=== PATIENT | female | born 1960 | race Caucasian/White ===

== ENCOUNTER → 2023-04-24 08:43 | Outpatient (REF) | payer OTHER, SELFPAY | LOC: RAD 08:43 | PROVIDERS: ATTENDING PHYSICIAN Internal Medicine | DX: L81.9 Disorder of pigmentation, unspecified (principal); M79.604 Pain in right leg; M79.605 Pain in left leg | CPT/HCPCS: 93925 ==

== ENCOUNTER → 2023-05-18 09:17 | Outpatient (REF) | payer OTHER, SELFPAY | LOC: RAD 09:17 | PROVIDERS: ATTENDING PHYSICIAN Surgery Vascular Surgery; FAMILY PHYSICIAN Internal Medicine | DX: M79.604 Pain in right leg (principal); M79.605 Pain in left leg | CPT/HCPCS: 93922; 93970 ==

== ENCOUNTER → 2023-05-26 16:42 | Outpatient (REF) | payer OTHER, SELFPAY | LOC: RAD 16:42 | PROVIDERS: ATTENDING PHYSICIAN Specialist; FAMILY PHYSICIAN Internal Medicine | DX: N18.32 Chronic kidney disease, stage 3b (principal) | CPT/HCPCS: 76775 ==

== ENCOUNTER → 2023-05-28 07:42 | Outpatient (REF) | payer OTHER, SELFPAY | LOC: RSP 07:42 | PROVIDERS: ATTENDING PHYSICIAN Internal Medicine; FAMILY PHYSICIAN Internal Medicine | DX: R06.09 Other forms of dyspnea (principal); F17.210 Nicotine dependence, cigarettes, uncomplicated | CPT/HCPCS: 94727; 94729; 88738; 94060 ==

== ENCOUNTER 2023-06-15 15:44 | Emergency (ER) | payer OTHER, SELFPAY ==
[2023-06-15 15:49] VITALS: BP 143/75
--- NOTE | 2023-06-15 19:48 | ED.GENMED ---
History of Present Illness
General
Chief Complaint: Head Injury
Source: patient and spouse
Exam Limitations: none
Time Seen by Provider: 06/15/23 18:41
Nursing documentation reviewed up to this point in time: agreed with
Travel History
Have you had any contact with someone who has COVID-19?: No
Do you have any symptoms of coronavirus? Fever > 100 degrees, chills, cough, shortness of breath, sore throat, loss of taste or smell, muscle aches, or headache?: No
History of Present Illness
History of Present Illness:
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
in the area of craniotomy she immediately felt spasm to her tongue and jaw had trouble speaking for roughly 5 minutes this has since resolved and otherwise feels well at this point denies any neurologic symptoms that are ongoing has a mild headache
at this point
Past History
Past History
ED Past Medical History: CVA
Social History
Tobacco: Non-smoker
Personal:
Living: with family
Review of Systems
Review of Systems
Allergies reviewed?: Yes
All Other Systems: ROS reviewed and negative except as documented in HPI and ROS
Phy Exam
Physical Exam
Physical Exam:
GENERAL: Alert , in no apparent distress
EYE: pupils equal and reactive
NECK: Supple, no significant adenopathy.
ENT: o/p clr, mmm.
CARDIAC: Regular rate and rhythm .
LUNGS: Clear breath sounds bilaterally, no acute respiratory distress, no wheezes/rales/rhonchi
ABDOMEN: Soft, without focal tenderness, no r/g, no cvat
NEUROLOGICAL: Alert and oriented, no focal neuro deficits 5-5 upper and lower extremity strength and sensation were palpated bilaterally normal finger-nose and [id number] no pronator drift
SKIN: Warm and dry, skin intact.
MUSCULOSKELETAL: No edema, well perfused.
PSYCH: Normal and appropriate interaction.
Course
Orders/Labs/Results
Orders:
Orders
06/15/23 16:00
CT Head W/o Iv Contrast Stat
Comment:
Reason For Exam: head injury
Vital Signs
Initial and Last Documented VS:
Initial Vital Signs
Temp Pulse Resp BP Pulse Ox
98.2 F 85 18 143/75 97
06/15/23 15:49 06/15/23 15:49 06/15/23 15:49 06/15/23 15:49 06/15/23 15:49
Last Documented Vital Signs
Temp Pulse Resp BP Pulse Ox
98.2 F 85 18 143/75 97
06/15/23 15:49 06/15/23 15:49 06/15/23 15:49 06/15/23 15:49 06/15/23 15:49
MDM/Problems Addressed
MDM/Problems Addressed:
63-year-old female presenting to the emergency department after her dog bumped into her left side of her scalp and area of previous craniotomy for moyamoya. Had initial symptoms where she had difficulty speech for a few minutes as well as spasm to
her jaw and tongue. Here she is generally ill-appearing no neurologic symptoms CT scan without emergent findings. No signs of emergent process advised for close follow-up with her neurosurgeon otherwise stable for outpatient management. Return
precautions given.
*Critical Care Note
Total Time (30-74mins, 75-104mins- exclusive of procedures): Not Applicable
ED Attending Note
-
Portions of this chart may have been created with voice recognition software.� Occasional wrong word or��sound alike� substitutions may have occurred due to the inherent limitations of voice recognition software.
Discharge Plan
Departure
Patient Disposition: Home (Routine Discharge)
Date of Disposition: 06/15/23
Time of Disposition: 19:51
Patient with high blood pressure during this ER visit?: No
Condition: Good
Covid-19: Not Applicable
Discharge Problem:
Head injury
Instructions: Head Injury in Adults (DC)
Prescriptions:
No Action
clopidogrel 75 MG tablet
75 mg PO DAILY
atorvastatin 80 mg Tablet
80 mg PO DAILY
diltiazem HCl [Cardizem CD] 180 mg Capsule,Extended Release 24hr
180 mg PO HS
levothyroxine 100 mcg Tablet
100 mcg PO DAILY
alprazolam 0.25 mg Tablet
0.25 mg PO BID PRN (Reason: anxiety)
valsartan 320 mg Tablet
320 mg PO DAILY
hydrochlorothiazide 25 mg Tablet
25 mg PO DAILY
duloxetine 30 mg Capsule,Delayed Release(Dr/Ec)
30 mg PO HS
cholecalciferol (vitamin D3) [Vitamin D3] 50 mcg (2,000 unit) Tablet
50 mcg PO DAILY
aspirin 81 mg Capsule
81 mg PO DAILY
Referrals:
Heri Huston MD [Family Provider] -
Activity Restrictions/Additional Instructions:
You came to the emergency department today after an injury to the area of previous craniotomy. Here you had a reassuring CT scan. Please follow closely with your neurosurgeon. Return to the emergency department any worsening, new or concerning
symptoms.
== END 2023-06-15 19:58 | disposition home or self-care (01) ==
LOC: EMR 15:44
PROVIDERS: EMERGENCY PHYSICIAN Emergency Medicine; FAMILY PHYSICIAN Internal Medicine
DX: S09.90XA Unspecified injury of head, initial encounter (principal); W54.1XXA Struck by dog, initial encounter; Z86.73 Personal history of transient ischemic attack (TIA), and cerebral infarction without residual deficits
CPT/HCPCS: 99284; 70450

== ENCOUNTER 2023-06-25 08:10 | Outpatient (RCR) | payer OTHER, SELFPAY ==
[2023-06-25 08:27] VITALS: BP 157/67
[2023-06-25] MEDS: SODIUM BICARBONATE 1150 MEQ IV (08:50)
[2023-06-25 14:35] VITALS: BP 156/88
== END 2023-06-26 10:17 | disposition home or self-care (01) ==
LOC: OID 08:10
PROVIDERS: ATTENDING PHYSICIAN Nurse Practitioner Adult Health; FAMILY PHYSICIAN Internal Medicine
DX: I67.5 Moyamoya disease (principal); M79.604 Pain in right leg; M79.605 Pain in left leg; R23.9 Unspecified skin changes; Z92.89 Personal history of other medical treatment
CPT/HCPCS: 75635; 96365; 96366; Q9967

== ENCOUNTER → 2023-06-25 09:08 | Outpatient (REF) | payer OTHER, SELFPAY | LOC: RAD 09:08 | PROVIDERS: ATTENDING PHYSICIAN Surgery Vascular Surgery; FAMILY PHYSICIAN Internal Medicine | DX: M79.604 Pain in right leg (principal) | CPT/HCPCS: 75635; Q9967 ==

== ENCOUNTER → 2023-08-13 09:20 | Outpatient (REF) | payer OTHER, SELFPAY ==
[2023-08-13 09:36] VITALS: BMI 23.2
[2023-08-13 10:22] LABS: INR 0.99; PT 13.1 Sec (11.4-14.6)
[2023-08-13 10:43] LABS: % Basophils 0.6 % (0-2); % Eosinophils 2.9 % (0-6); % Immature Granulocytes 0.9 % (0-0.5); % Lymphocytes 19.7 % (20.5-51.1); % Monocytes 4.9 % (1.7-9.3); Absolute Basophils 0.1 10^3/uL (0-0.2); Absolute Eosinophils 0.4 10^3/uL (0-0.7); Absolute Immature Granulocytes 0.1 10^3/uL (0-0.05); Absolute Lymphocytes 2.5 10^3/uL (1.2-3.4); Absolute Monocytes 0.6 10^3/uL (0.1-0.6); Absolute Neutrophils 9.1 10^3/uL (1.4-6.5); Hematocrit 38.7 % (37.0-47.0); Hemoglobin 12.8 g/dL (12.0-16.0); Mean Corp Hgb Conc. 33.1 g/dL (33.0-37.0); Mean Corpuscular Hgb 30.7 pg (27.0-31.0); Mean Corpuscular Volume 92.8 fL (81.0-99.0); Mean Platelet Volume 9.8 fL (7.4-10.4); Nucleated Red Blood Cells % 0 %; Platelet Count 358 10^3/uL (130-400); Red Blood Cell Count 4.17 10^6/uL (4.20-5.40); Red Cell Dist. Width 13.4 % (11.5-14.5); White Blood Cell Count 12.8 10^3/uL (4.8-10.8)
[2023-08-13 11:08] LABS: Blood Urea Nitrogen 60 mg/dl (7-17); Calcium 9.9 mg/dl (8.4-10.2); Carbon Dioxide 20 mmol/L (22-30); Chloride 102 mmol/L (98-107); Estimated Creatinine Clearance 22 ml/min; Glucose 108 mg/dl (70-99); Sodium 134 mmol/L (135-145); eGFR 20.11
--- NOTE | 2023-08-13 12:51 | PTCARENOTE ---
K+ 6.0, BUN 60 & creatinine 2.6 were all collected on 08/13/23; Belén at 's office was made aware.
== END ==
LOC: REG 09:20
PROVIDERS: ATTENDING PHYSICIAN Surgery Vascular Surgery; FAMILY PHYSICIAN Internal Medicine; OTHER PHYSICIAN Internal Medicine
DX: I77.1 Stricture of artery (principal); M79.605 Pain in left leg; M79.604 Pain in right leg; Z01.818 Encounter for other preprocedural examination
CPT/HCPCS: 36415; 71046; 80048; 85025; 85610; 85730; 86850; 86900; 86901

== ENCOUNTER → 2023-08-17 07:53 | Outpatient (REF) | payer OTHER, SELFPAY ==
[2023-08-17 08:49] LABS: Blood Urea Nitrogen 51 mg/dl (7-17); Calcium 10.3 mg/dl (8.4-10.2); Carbon Dioxide 21 mmol/L (22-30); Chloride 101 mmol/L (98-107); Glucose 148 mg/dl (70-99); Potassium 4.5 mmol/L (3.5-5.1); Sodium 133 mmol/L (135-145); eGFR 20.11
== END ==
LOC: REG 07:53
PROVIDERS: ATTENDING PHYSICIAN Specialist; FAMILY PHYSICIAN Internal Medicine; OTHER PHYSICIAN Surgery Vascular Surgery
DX: N17.9 Acute kidney failure, unspecified (principal); E87.5 Hyperkalemia
CPT/HCPCS: 36415; 80048

== ENCOUNTER → 2023-08-21 07:35 | Outpatient (REF) | payer OTHER, SELFPAY ==
[2023-08-21 08:52] LABS: Blood Urea Nitrogen 22 mg/dl (7-17); Calcium 9.8 mg/dl (8.4-10.2); Carbon Dioxide 24 mmol/L (22-30); Chloride 104 mmol/L (98-107); Glucose 135 mg/dl (70-99); Sodium 135 mmol/L (135-145)
== END ==
LOC: REG 07:35
PROVIDERS: ATTENDING PHYSICIAN Specialist; REFERRING PHYSICIAN Surgery Vascular Surgery
DX: N17.9 Acute kidney failure, unspecified (principal); E87.5 Hyperkalemia
CPT/HCPCS: 36415; 80048

== ENCOUNTER 2023-09-01 08:53 | Inpatient (IN) | payer OTHER, SELFPAY ==
--- NOTE | 2023-08-26 13:45 | PTCARENOTE ---
08/20 Nico 1Mitchel Melissa @ Dr. Fu office notified
[2023-08-27 09:42] VITALS: BMI 23.5
[2023-08-27 10:21] LABS: % Basophils 0.4 % (0-2); % Eosinophils 2.1 % (0-6); % Immature Granulocytes 0.5 % (0-0.5); % Lymphocytes 18.1 % (20.5-51.1); % Monocytes 5.6 % (1.7-9.3); % Neutrophils 73.3 % (42.2-75.2); Absolute Basophils 0.1 10^3/uL (0-0.2); Absolute Eosinophils 0.3 10^3/uL (0-0.7); Absolute Immature Granulocytes 0.1 10^3/uL (0-0.05); Absolute Lymphocytes 2.5 10^3/uL (1.2-3.4); Absolute Monocytes 0.8 10^3/uL (0.1-0.6); Absolute Neutrophils 9.9 10^3/uL (1.4-6.5); Hematocrit 36.7 % (37.0-47.0); Hemoglobin 12.2 g/dL (12.0-16.0); Mean Corp Hgb Conc. 33.2 g/dL (33.0-37.0); Mean Corpuscular Volume 93.1 fL (81.0-99.0); Mean Platelet Volume 9.7 fL (7.4-10.4); Nucleated Red Blood Cells % 0 %; Platelet Count 367 10^3/uL (130-400); Red Blood Cell Count 3.94 10^6/uL (4.20-5.40); Red Cell Dist. Width 12.9 % (11.5-14.5); White Blood Cell Count 13.5 10^3/uL (4.8-10.8)
[2023-08-27 10:23] LABS: INR 1.01; PT 13.3 Sec (11.4-14.6)
[2023-08-27 10:24] LABS: APTT 28.7 Sec (23.4-35.0)
[2023-08-27 10:28] LABS: Blood Urea Nitrogen 15 mg/dl (7-17); Calcium 9.7 mg/dl (8.4-10.2); Carbon Dioxide 28 mmol/L (22-30); Chloride 100 mmol/L (98-107); Estimated Creatinine Clearance 31 ml/min; Glucose 97 mg/dl (70-99); Potassium 3.8 mmol/L (3.5-5.1); Sodium 137 mmol/L (135-145); eGFR 31.27
[2023-09-01] VITALS (21 sets, daily range): BP systolic 125–202; BP diastolic 64–103; BMI 23.5; BMI 23.4
[2023-09-01] MEDS: PERIDEX 0.12% ORAL RINSE 15 ML PO (09:30)
[2023-09-01] MEDS: BACTROBAN NASAL 1 GRAM NASAL (09:30)
[2023-09-01] MEDS: NSS 500 IV (09:42)
--- NOTE | 2023-09-01 10:26 | W.SUR.PREOP ---
Pre-Operative Surgical Note
-
I have examined this patient prior to the performance of the scheduled procedure.
The patient's condition is unchanged from the time of the current History and
Physical and the patient is able to undergo the scheduled procedure.
[2023-09-01 12:28] LABS: ACT-LR - POC 266 Seconds (116-155)
[2023-09-01 13:39] LABS: Hematocrit 32.9 % (37.0-47.0); Hemoglobin 11.3 g/dL (12.0-16.0); Mean Corp Hgb Conc. 34.3 g/dL (33.0-37.0); Mean Corpuscular Volume 90.1 fL (81.0-99.0); Mean Platelet Volume 9.5 fL (7.4-10.4); Platelet Count 328 10^3/uL (130-400); Red Blood Cell Count 3.65 10^6/uL (4.20-5.40); Red Cell Dist. Width 12.9 % (11.5-14.5); White Blood Cell Count 19.4 10^3/uL (4.8-10.8)
[2023-09-01] MEDS: SUBLIMAZE 50 MCG IV (13:43)
[2023-09-01] MEDS: CARDENE 200 IV (13:45)
--- NOTE | 2023-09-01 13:50 | W.IMMPOSTOP ---
Surgical Immed Post Op Note
-
Primary Surgeon: Dr. Tony Portillo III, MD
Assisting Surgeon: Dr. Kiel Moran MD, PhD (PGY-1)
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
Procedure Performed: diagnostic arteriogram, AFX stent graft placement, balloon angioplasty
Anesthesia Type: General
Specimen / Cultures: None
Estimated Blood Loss: Minimal
Complications: None
Operative Findings: The patient was brought to the OR and placed in the supine position. Following induction and intubation, the patient was prepped and draped in usual sterile fashion. The C arm was used to identify the superior and inferior
aspects of the femoral head, these boundaries were marked at the skin. Micropuncture kit was used to access the common femoral arteries bilaterally and a 5-v[place] citizen sheath was advanced over a BuzzDoesson wire on both sides. Two preclose devices were
placed in each groin. The AFX stent graft sheath was advanced over a Lunderquist wire on the right side, while the contralateral side was used to advance the sheath for a snare wire. The AFX graft was position at the level of the iliac bifurcation
from the abdominal aorta. Balloon angioplasty was performed along the entire course of the graft and the graft was extended into the common iliac on the left side. At the conclusion of the case, the sheaths and wires were removed and perclose
devices were used to close the access sites. Hemostasis was achieved and the skin was closed with skin glue. At the conclusion of the case, the patient had dopplerable DP and PT pulses on the left and a dopplerable PT signal on the right. The
patient was transported to the PACU in stable condition.
[2023-09-01 14:00] LABS: Blood Urea Nitrogen 14 mg/dl (7-17); Calcium 8.7 mg/dl (8.4-10.2); Carbon Dioxide 25 mmol/L (22-30); Chloride 102 mmol/L (98-107); Estimated Creatinine Clearance 35 ml/min; Glucose 125 mg/dl (70-99); Potassium 3.7 mmol/L (3.5-5.1); Sodium 137 mmol/L (135-145); eGFR 36.01
--- NOTE | 2023-09-01 14:39 | W.PN.UPDATE ---
Update Note
Progress Note Update
Called to PACU by RN for concern of BL LE cyanosis of digits, patient seen with attending Dr. Tony Portillo, who indicates that BL digits were discolored prior to procedure. Pulse exam unchanged, motor intact, sensation scantly diminished at right
foot hallux. Patient denies pain. Will add heparin infusion and continue to monitor.
[2023-09-01] MEDS: DILAUDID 0.5 MG IV ×3 (15:08→20:05)
--- NOTE | 2023-09-01 15:28 | CON.INTV ---
Consultation
Consultation Request
Date/Time Consultation Requested: 09/01/23
Date/Time Consultation Performed: 09/01/23
Performing Provider: Ana
Reason for Consultation: ICU
Medical History
-
History of Present Illness:
Patient is a 63-year-old female with previous history of hypertension, CAD, PAD, COPD presenting for elective vascular procedure. She had been complaining of worsening leg pain with difficulty ambulating. She has known descending thoracic aortic
disease involving infrarenal abdominal aorta extending into the iliac arteries bilaterally. Underwent diagnostic arteriogram, stent graft placement and balloon angioplasty 09/01/2023. Procedure was notably uncomplicated.
She is transferred to ICU for further postop management.
Past Medical History
Past Medical History: Other (see list below)
Social History
Tobacco: Smoker
Alcohol: Occasional
Drug: None
Family History
Family History: Reviewed & Not Pertinent
Allergies / Home Medications
Allergies
Allergy/AdvReac Type Severity Reaction Status Date / Time
No Known Allergies Allergy Verified 09/01/23 09:06
Home Medications
�Medication �Instructions �Recorded �Confirmed �Last Taken �Type
clopidogrel 75 mg tablet 75 mg PO DAILY 05/08/12 09/01/23 09/01/23 07:00 History
alprazolam 0.25 mg tablet 0.25 mg PO BID PRN anxiety 04/03/23 09/01/23 08/31/23 20:30 History
aspirin 81 mg capsule 81 mg PO DAILY 04/03/23 09/01/23 09/01/23 07:00 History
atorvastatin 80 mg tablet 80 mg PO DAILY 04/03/23 09/01/23 09/01/23 07:00 History
cholecalciferol (vitamin D3) 50 50 mcg PO DAILY 04/03/23 09/01/23 09/01/23 07:00 History
mcg (2,000 unit) tablet (Vitamin
D3)
diltiazem HCl 180 mg 180 mg PO HS 04/03/23 09/01/23 08/31/23 20:30 History
capsule,extended release 24 hr
(Cardizem CD)
duloxetine 30 mg capsule,delayed 30 mg PO HS 04/03/23 09/01/23 08/31/23 20:30 History
release
levothyroxine 100 mcg tablet 100 mcg PO DAILY 04/03/23 09/01/23 09/01/23 07:00 History
sodium bicarbonate 325 mg tablet 650 mg PO BID 08/25/23 09/01/23 09/01/23 07:00 History
Review of Systems
-
History Source: Patient
All other systems: Negative unless noted
Vitals / Labs / Diagnostic Testing
Vital Signs
Temp Pulse Resp BP Pulse Ox
97.8 F 82 19 159/74 97
09/01/23 13:19 09/01/23 14:45 09/01/23 14:45 09/01/23 14:45 09/01/23 14:45
Lab Data
09/01/23 13:34
Diagnostic Testing:
Physical Exam
-
HEENT: Normocephalic, Anicteric and Moist Mucous Membranes
Cardiovascular: S1/S2 and Regular Rhythm
Respiratory: Clear and Non-Labored Respirations
GI: Soft, Non Distended and Non Tender
Neurology: Awake, Alert, Oriented, AO x 3 and No Motor Deficits
Skin: Warm, Dry and Good Color
General: Comfortable, Pain and Other (NAD)
Assessment
-
Patient is a 63-year-old female with previous history of hypertension, CAD, PAD, COPD presenting for elective vascular procedure. She had been complaining of worsening leg pain with difficulty ambulating. She has known descending thoracic aortic
disease involving infrarenal abdominal aorta extending into the iliac arteries bilaterally. Underwent diagnostic arteriogram, stent graft placement and balloon angioplasty 09/01/2023. Adm to ICU.
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
Leukocytosis
Mild anemia, postop
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
COPD
Moderate obstruction, follows Dr White
Chronic cough noted
Moderate cigarette smoker (10-19 cigs/day)
TIA, recurrent
Ovarian cancer diagnosed age (no chemo, RT)
Hypertension
Hypercholesterolemia
Hypothyroidism
Moyamoya syndrome
CAD with occluded RCA
CKD 3/4
Vulva cancer (no RT, chemotherapy)
PAD
Appendectomy 02/1992
Hysterectomy, BSO, omentectomy 02/1992
Partial vulvectomy 2009
Brain bypass x3
Appendectomy
Plan
Patient is s/p arteriogram/graft/angioplasty by vascular surgery service, POD #0
Continue observation following procedure
Follow neurovascular checks per protocol
ASA and statin on board
Follow BP monitoring and parameters as set by primary team
Cardiac history noted--HTN/CAD
Now on cardene for tight BP control
Monitor on telemetry
Pain control per protocol
RASS goal 0
Prior history of pulmonary disease includes COPD, smoking hx includes current smoker 1/2-1PPD
Smoking cessation encouraged, NRT PRN
CXR reviewed indicating no acute disease
Prior PFTs for review showing moderate obstruction
Can resume home inhalers
Encouraged IS
Diet advancement per protocol
Aspiration precautions
GI prophylaxis if indicated for stress ulcer prevention in the critically ill
CKD history
Creat at baseline, follow UO
Critical I/Os
Void trials
Replete electrolytes as needed
No signs/symptoms suspicious for infectious etiology at this time
Will observe off antibiotics for now
Follow temperatures/CBC
Hb and platelets postoperatively stable
DVT prophylaxis recommended if not contraindicated based on procedural history -- heparin SQ and mechanical SCDs
Encouraged OOB/PT/OT/ambulation once cleared by surgical team
We will follow
Diagnostic Data
Chest X-Ray: 08/13/23- No acute disease of the chest.
CT Scan: AP 06/25/23- IMPRESSION:
1. Advanced aortic atherosclerotic changes without aneurysmal dilation. Irregular mural thrombus along distal thoracic and abdominal aorta. Moderate stenosis of the infrarenal aorta.
2. High-grade stenosis of the proximal right common iliac artery. Moderate stenosis left common iliac artery. Left profunda femoral stenosis. Three-vessel runoff on the right and 2 vessel runoff on left.
3. Bilateral renal cortical scarring. Atrophic changes of the left kidney as compared with the right.
[facility] 04/09/23- CONCLUSIONS
1: Inferobasal akinesis with EF 54%
2: Single-vessel CAD (chronic total occlusion of the proximal RCA)
3. Recommend continued medical therapy with aspirin and high intensity statin
Echo: 03/23/23- Normal biventricular size and systolic function without regional wall motion abnormality. Possible basal to mid inferior hypokinesis. Mild concentric left ventricular hypertrophy.
No significant valvular disease. Compared to previous echo 05/10/12, the possible basal inferior hypokinesis is new.
PFT's: 05/28/23- FVC was 2.06L or 58% predicted. FEV1 was 1.10L or 40% predicted. Ratio 53. Post FEV1 was 1.22L or 44% predicted, 11% change.
Lung volumes: TLC was 4.05L or 74% predicted. RV/TLC was 49%. Diffusion was 10.17 or 42% predicted. When adjusted for hemoglobin was unchanged.
Spirometry demonstrates severe obstruction. There was significant bronchodilator response in the FVC. Lung volumes demonstrate mild restriction. There is borderline air trapping. There is a moderate diffusion impairment.
Reports and relevant images were personally reviewed.
-----
Critical care time 50 mins -- this includes review of history, physical exam, medications, hemodynamic/ventilator parameters, laboratory data, imaging and discussion with house staff, pharmacy, respiratory therapy, metal model maker, and nursing.
[2023-09-01] MEDS: NSS 1000 IV (15:45)
--- NOTE | 2023-09-01 15:59 | OR.RPT ---
Operative Report
Operative Report
Date of Operation: 09/01/2023
Pre Op Diagnosis:
1.) Diffuse aortic atherosclerotic disease with stenosis of abdominal aorta
2.) Suspected distal atheroemboli from aortoiliac disease
3.) Severe right common iliac artery stenosis
Post Op Diagnosis:
1.) Diffuse aortic atherosclerotic disease with stenosis of abdominal aorta
2.) Suspected distal atheroemboli from aortoiliac disease
3.) Severe right common iliac artery stenosis
Procedure:
1.) Aortoiliac stent grafting with Endologix AFX device:
AFX 25-90/16-30
28-95 proximal extension (infrarenal)
2.) Ultrasound-guided percutaneous access to the bilateral common femoral arteries
3.) ProGlide closure of bilateral common femoral artery access
Surgeon: Tony Portillo III, MD
[employer]: Kiel Moran MD PhD, PGY1
Anesthesia: General
Complications: None
Estimated Blood Loss: 50 cc
History and Indications for Procedure: 63-year-old female with severe atherosclerotic disease of her abdominal aorta and associated iliac disease.
Procedure in Detail: Tara Harris was correctly identified and placed supine on the operating table. After adequate induction of anesthesia the abdomen, pelvis and bilateral groins were positioned, prepped and draped in the usual sterile fashion.
Preoperative antibiotics were administered. A timeout procedure was performed with the nursing and anesthesia staff confirming the patients identity as well as the nature and laterality of the procedure.
Under ultrasound guidance, bilateral femoral artery sheath access was obtained. The arteries were patent. Ultrasound images of the femoral arteries were saved to the medical record. A pre-close technique was performed on the left femoral artery
access with 2 offset Proglide closure devices. The sutures were secured and tucked under surgical towels for use at the end of the case. An 8 Brune[place] sheath was then placed. A 7 Fr sheath was placed into the right femoral access. The patient was
systemically heparinized.
From the left femoral access a KMP catheter and Bentson wire were advanced to the proximal descending thoracic aorta. The wire was exchanged out through the KMP catheter for a Lunderquist wire. From the right femoral access a Bentson wire was
advanced into the proximal abdominal aorta. An En-Snare catheter was placed over a Bentson wire from the right femoral access and advanced to the aortic bifurcation. The En-Snare was then advanced through to the catheter tip.
Over the Lunderquist wire in the left femoral access I placed the AFX introducer sheath and advanced the radio-opaque sheath tip to the abdominal aorta. The contralateral limb wire of the AFX2 main body was introduced through the introducer sheath
and advanced to the aortic bifurcation. The 25-90/16-30 AFX2 bifurcated main body was then loaded onto the Lunderquist wire and advanced through the introducer sheath. The wire was snared from the contralateral side and pulled out the right femoral
access and the AFX2 main body was advanced until the limbs were above the aortic bifurcation. The entire system was then pulled down onto the aortic bifurcation. The main body was then deployed by pulling the control cord.
The contralateral limb was then deployed by pulling the yellow limb cover. Once this was completed I advanced a pigtail catheter over the contralateral limb wire until the tip was in contact with the wire lock. The contralateral limb was then pulled
as I advanced the pigtail up to release it from the wire lock. The wire was removed and the formed pigtail catheter was then advanced proximally.
The ipsilateral limb was deployed by pinning the inner core and retracting the AFX introducer sheath. After removing the delivery system, I then performed balloon angioplasty on the left iliac limb with an 8 mm x 40 mm angioplasty balloon followed
by a 10 mm x 40 mm angioplasty balloon. The dilator was then reintroduced to the AFX introducer sheath and the sheath advanced proximally through the left iliac limb and then the AFX main body.
Through the introducer sheath I advanced a 28-95 infrarenal endograft extension and performed an arteriogram to clearly visualize the renal arteries. The stent was positioned appropriately below the renal arteries and deployed under roadmap guidance
in the desired location.
A Coda balloon was introduced on the left and used to profile the proximal and distal seal zones as well as all areas of overlap. A 10 mm x 40 mm angioplasty balloon was used to profile the right iliac limb.
A completion aortogram demonstrated an excellent technical result. There was brisk flow through the stent and iliac limbs. The renal arteries were widely patent bilaterally. The iliac bifurcations were preserved bilaterally.
Satisfied with this result I then concluded the procedure. The Proglide sutures were secured on the left after removing the sheath and wire. Protamine was administered. A single Proglide was used to close the right femoral artery access site.
Additional pressure was applied to the puncture sites bilaterally for 10 minutes. Hemostasis was achieved bilaterally.
Skin glue was applied bilaterally.
The patient tolerated the procedure well and was taken to the PACU in stable condition.
Attestation: I was present and responsible for the entire procedure
Signed:
Tony Portillo III, MD
[facility]
[phone] (qnly)
[2023-09-01] MEDS: TYLENOL 650 MG PO ×2 (16:00→23:32)
[2023-09-01 16:02] LABS: Hematocrit 33.3 % (37.0-47.0); Hemoglobin 11.5 g/dL (12.0-16.0); Mean Corp Hgb Conc. 34.5 g/dL (33.0-37.0); Mean Corpuscular Hgb 31.3 pg (27.0-31.0); Mean Corpuscular Volume 90.7 fL (81.0-99.0); Mean Platelet Volume 9.6 fL (7.4-10.4); Platelet Count 334 10^3/uL (130-400); Red Blood Cell Count 3.67 10^6/uL (4.20-5.40); White Blood Cell Count 21.1 10^3/uL (4.8-10.8)
[2023-09-01] MEDS: HEPARIN 25000 UNITS/250 ML IV (16:03)
[2023-09-01 16:12] LABS: INR 1.19; PT 14.9 Sec (11.4-14.6)
[2023-09-01 16:13] LABS: APTT 32.7 Sec (23.4-35.0)
--- NOTE | 2023-09-01 16:58 | PTCARENOTE ---
PT received via stretcher from PACU, pulse checks complete, B/L DP and PT +Doppler, LE warm to touch, however mottling is noted on the right LE warren and foot, Left soul of foot, Nneka hugger applied to B/L LE, AAOx3, NSR with 1st degree AV block,
Pulses +Doppler, room air 93%, diminished and coarse, abdomen soft NT + BS, Portillo draining clear yellow urine, right Diane zeroed and flushed, B/L AC INTS flushed, patent, PT and spouse oriented to room, policies and procedures
[2023-09-01 16:59] LABS: Magnesium 1.7 mg/dl (1.6-2.3)
[2023-09-01] MEDS: ROXICODONE 5 MG PO (17:29)
[2023-09-01] MEDS: SODIUM BICARBONATE 650 MG PO (20:04)
[2023-09-01] MEDS: XANAX 0.25 MG PO (20:28)
--- NOTE | 2023-09-01 21:54 | PTCARENOTE ---
Spoke to Dr. Rachele Langford about persistent RLE pain. Patient stating pain 10/10 after receiving 0.5 mg IV Dilaudid. B/l DP and PT pulses remain present by doppler. Mottling improving on RLE. No longer present on bottom of left foot. B/l groin
sites intact. ARORA x4. Orders obtained for scheduled Tylenol around the clock and PRN Dilaudid increased to 1mg. VSS. SBP within range. Patient concerned about elevated BP. Education provided.
[2023-09-01] MEDS: DILAUDID 1 MG IV (22:13)
[2023-09-01] MEDS: CYMBALTA DELAYED RELEASE 30 MG PO (22:13)
[2023-09-01] MEDS: CARDIZEM CD 180 MG PO (22:21)
[2023-09-01 22:28] LABS: APTT 147.2 Sec (23.4-35.0)
--- NOTE | 2023-09-01 23:13 | PTCARENOTE ---
Patient rating pain in RLE 5/10 s/p 1mg IV Dilaudid. Neurovascular checks unchanged. PTT resulted at 147.2. Per protocol, placed on hold for 1 hour. Due to be restarted @ 1140 at a rate of 1000 units/hr.
--- NOTE | 2023-09-01 23:44 | PTCARENOTE ---
Patient rating pain in RLE 5/10 s/p 1mg IV Dilaudid. Neurovascular checks unchanged. PTT resulted at 147.2. Per protocol, placed on hold for 1 hour. Due to be restarted @ 2340 at a rate of 1000 units/hr.
[2023-09-02] VITALS (10 sets, daily range): BP systolic 124–177; BP diastolic 53–85; BMI 23.9
[2023-09-02] MEDS: DILAUDID 1 MG IV ×5 (00:13→11:05)
[2023-09-02] MEDS: NSS 1000 IV (03:15)
--- NOTE | 2023-09-02 03:45 | PTCARENOTE ---
Neurovascular checks continued Q1hr. Pulses palpable. Groin sites intact. Pain managed with PRN Dilaudid. VSS.
[2023-09-02] MEDS: TYLENOL 650 MG PO ×5 (04:07→20:50)
[2023-09-02] MEDS: SYNTHROID 100 MCG PO (05:23)
[2023-09-02 05:38] LABS: Hematocrit 30.2 % (37.0-47.0); Hemoglobin 10.1 g/dL (12.0-16.0); Mean Corp Hgb Conc. 33.4 g/dL (33.0-37.0); Mean Corpuscular Hgb 31.2 pg (27.0-31.0); Mean Corpuscular Volume 93.2 fL (81.0-99.0); Platelet Count 306 10^3/uL (130-400); Red Blood Cell Count 3.24 10^6/uL (4.20-5.40); Red Cell Dist. Width 12.8 % (11.5-14.5); White Blood Cell Count 18.6 10^3/uL (4.8-10.8)
[2023-09-02 05:47] LABS: INR 1.13; PT 14.4 Sec (11.4-14.6)
--- NOTE | 2023-09-02 05:47 | PTCARENOTE ---
Attempted to wean to RA. POX mid 's. 2L nc reapplied. POX 92%.
[2023-09-02 05:50] LABS: APTT 122.1 Sec (23.4-35.0)
[2023-09-02 06:35] LABS: Blood Urea Nitrogen 21 mg/dl (7-17); Calcium 8.5 mg/dl (8.4-10.2); Carbon Dioxide 22 mmol/L (22-30); Chloride 103 mmol/L (98-107); Estimated Creatinine Clearance 31 ml/min; Glucose 133 mg/dl (70-99); Sodium 135 mmol/L (135-145); eGFR 31.27
--- NOTE | 2023-09-02 07:22 | W.PN.INTV ---
Today's Communication / Plan
Recommendations
Cardene gtt, weaning off
Can try Toprol XL dosing today if ok with team
Continue postop management per protocol
If BP stable, can transfer to tele
Assessment
-
Patient is a 63-year-old female with previous history of hypertension, CAD, PAD, COPD presenting for elective vascular procedure. She had been complaining of worsening leg pain with difficulty ambulating. She has known descending thoracic aortic
disease involving infrarenal abdominal aorta extending into the iliac arteries bilaterally. Underwent diagnostic arteriogram, stent graft placement and balloon angioplasty 09/01/2023. Adm to ICU.
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
Leukocytosis
Mild anemia, postop
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
COPD
Moderate obstruction, follows Dr White
Chronic cough noted
Moderate cigarette smoker (10-19 cigs/day)
TIA, recurrent
Ovarian cancer diagnosed age (no chemo, RT)
Hypertension
Hypercholesterolemia
Hypothyroidism
Moyamoya syndrome
CAD with occluded RCA
CKD 3/4
Vulva cancer (no RT, chemotherapy)
PAD
Appendectomy 02/1992
Hysterectomy, BSO, omentectomy 02/1992
Partial vulvectomy 2009
Brain bypass x3
Appendectomy
Plan
Patient is s/p arteriogram/graft/angioplasty by vascular surgery service, POD #1
Continue observation following procedure
Follow neurovascular checks per protocol
ASA and statin on board
Follow BP monitoring and parameters as set by primary team
Cardiac history noted--HTN/CAD
Now on cardene for tight BP control--weaning off
Would start Toprol XL if ok with team
Monitor on telemetry
Pain control per protocol
RASS goal 0
Prior history of pulmonary disease includes COPD, smoking hx includes current smoker 1/2-1PPD
Smoking cessation encouraged, NRT PRN
CXR reviewed indicating no acute disease
Prior PFTs for review showing moderate obstruction
Can resume home inhalers
Encouraged IS
Diet advancement per protocol
Aspiration precautions
GI prophylaxis if indicated for stress ulcer prevention in the critically ill
CKD history
Creat at baseline, follow UO
Critical I/Os
Void trials
Replete electrolytes as needed
No signs/symptoms suspicious for infectious etiology at this time
Will observe off antibiotics for now
Follow temperatures/CBC
Hb and platelets postoperatively stable
DVT prophylaxis recommended if not contraindicated based on procedural history -- heparin SQ and mechanical SCDs
Encouraged OOB/PT/OT/ambulation once cleared by surgical team
Diagnostic Data
Chest X-Ray: 08/13/23- No acute disease of the chest.
CT Scan: AP 06/25/23- IMPRESSION:
1. Advanced aortic atherosclerotic changes without aneurysmal dilation. Irregular mural thrombus along distal thoracic and abdominal aorta. Moderate stenosis of the infrarenal aorta.
2. High-grade stenosis of the proximal right common iliac artery. Moderate stenosis left common iliac artery. Left profunda femoral stenosis. Three-vessel runoff on the right and 2 vessel runoff on left.
3. Bilateral renal cortical scarring. Atrophic changes of the left kidney as compared with the right.
[facility] 04/09/23- CONCLUSIONS
1: Inferobasal akinesis with EF 54%
2: Single-vessel CAD (chronic total occlusion of the proximal RCA)
3. Recommend continued medical therapy with aspirin and high intensity statin
Echo: 03/23/23- Normal biventricular size and systolic function without regional wall motion abnormality. Possible basal to mid inferior hypokinesis. Mild concentric left ventricular hypertrophy.
No significant valvular disease. Compared to previous echo 05/10/12, the possible basal inferior hypokinesis is new.
PFT's: 05/28/23- FVC was 2.06L or 58% predicted. FEV1 was 1.10L or 40% predicted. Ratio 53. Post FEV1 was 1.22L or 44% predicted, 11% change.
Lung volumes: TLC was 4.05L or 74% predicted. RV/TLC was 49%. Diffusion was 10.17 or 42% predicted. When adjusted for hemoglobin was unchanged.
Spirometry demonstrates severe obstruction. There was significant bronchodilator response in the FVC. Lung volumes demonstrate mild restriction. There is borderline air trapping. There is a moderate diffusion impairment.
Reports and relevant images were personally reviewed.
-----
Critical care time 32 mins -- this includes review of history, physical exam, medications, hemodynamic/ventilator parameters, laboratory data, imaging and discussion with house staff, pharmacy, respiratory therapy, cooler service supervisor, and nursing.
Subjective Dataa
Subjective Data
Date of Service:
Date of Service: September 02, 2023
Chief Complaint: Program Medical Director Follow Up
Subjective:
no events ON, remains stable
on nicardipine for BP management
Objective Data
Data Reviewed
Vital Signs / I&O / Oxygen:
Vital Signs
Temp Pulse Resp BP Pulse Ox
97.6 F 72 20 172/85 95
09/02/23 03:02 09/02/23 06:45 09/02/23 06:45 09/02/23 06:00 09/02/23 06:45
Intake and Output
09/01/23 09/02/23 09/03/23
06:59 06:59 06:59
Intake Total 2356 / 2356
Output Total 1050 / 1050
Balance 1306 / 1306
SaO2 95
Nasal Cannula flow liters per 2
minute
Physical Exam
General: Comfortable and Other (NAD)
HEENT: Normocephalic, Anicteric and Moist Mucous Membranes
Cardiovascular: S1-S2 and Regular Rhythm
Respiratory: Clear and Non-Labored Respirations
GI: Soft, Non Distended and Non Tender
Neurology: Awake, Alert, Oriented, AO x 3 and No Motor Deficits
Skin: Warm, Dry and Good Color
Labs/Micro/Reports
Lab Data
09/02/23 05:20
09/02/23 05:20
Laboratory Results
09/01/23 09/01/23 09/02/23
15:54 22:08 05:20
PT 14.9 H 14.4
INR 1.19 1.13
APTT 32.7 147.2 H 122.1 H
09/02/23
06:00
PT
INR
APTT Cancelled
--- NOTE | 2023-09-02 07:50 | W.PN.VS ---
Addendum entered and electronically signed by Konrad Brooks MD 09/02/23 09:20:
Seen and examined with RABIA Calvillo. Agree with findings as noted below. Overall notes that her feet feel better. However she still has a little bit of pain in her right lateral toes feels like a burning. No other complaints. She was concerned
somewhat about her blood pressure given slight elevation (blood pressure parameters for use given her history of moyamoya and revascularization). Her abdomen is soft, nondistended, nontender. Groins are flat bilaterally. No hematomas. Easily
palpable femoral pulses bilaterally. 2+ palpable PT pulses bilaterally. Feet are both pink and warm and well-perfused. No rubor or ulcerations. Plan/as discussed and noted below. Per patient (and per her outpatient neurologist who manages her
moyamoya primarily), blood pressure goals between 140-160 systolic. Will aim for that. Will ask nephrology regarding outpatient blood pressure medication adjustment.
Original Note:
Today's Communication / Plan
-
Seen and assessed with Dr Brooks
Assessment/Plan
-
POD 1 diagnostic arteriogram, AFX stent graft placement, balloon angioplasty
Plan:
-Cardene for SBP 140-160 this am
-Cont ASA/plavix
-Will reach out to nephrology regarding BP med adjustments at request of the pt
-DC heparin and switch to DAPT
Subjective Data
-
Date of Service: September 02, 2023
Pt seen at bedside this am with Dr Brooks. Pt states she has burning in the 3rd, 4th, and 5th toes on the right foot this am but her feet feel much improved since before surgery. No other events overnight
Objective Data
-
Vital Signs
Temp Pulse Resp BP Pulse Ox
97.8 F 72 20 172/85 95
09/02/23 07:43 09/02/23 06:45 09/02/23 06:45 09/02/23 06:00 09/02/23 06:45
Intake and Output
09/01/23 09/02/23 09/03/23
06:59 06:59 06:59
Intake Total 2355 / 2355
Output Total 1050 / 1050
Balance 1306 / 1306
Intake:
IV fluids (Total) 2355
Heparin 1032 / 1032
Nss 1,000 ml @ 80 mls/hr IV . 1120 / 1120
[id number] ALEK Rx#:[id number]
pre surgical NSS bolus 204 / 204
Output:
Urine, Portillo 1050 / 1050
Lab Results
09/02/23 05:20
09/02/23 05:20
Calcium 8.5 mg/dl (8.4-10.2) 09/02/23 05:20
Magnesium 1.7 mg/dl (1.6-2.3) 09/01/23 13:34
Physical Exam
-
AAOx3
No tachypnea
No tachycardia
SBP 190's
Abd soft, NT, ND
Groin sites c/d/i, no hematoma or drainage
BL feet warm, cap refill <2, cyanosis resolved
Palpable PT pulses BL
[2023-09-02] MEDS: CARDENE 200 IV ×2 (08:00→17:00)
--- NOTE | 2023-09-02 08:00 | PTCARENOTE ---
PT received in bed AAOX3 PT pleasant and cooperative, pulse checks complete, B/L DP and PT +Doppler, LE warm to touch, mottling better than yesterday, mostly on the soul of the right foot and the last 3 toes of the right foot Nneka varghese applied
to B/L LE, NSR with 1st degree AV block, Pulses +Doppler, room air 93%, diminished and coarse, abdomen soft NT + BS, Portillo draining clear yellow urine, right Diane zeroed and flushed, B/L AC INTS flushed, patent, PT and spouse oriented to room,
policies and procedures
[2023-09-02] MEDS: LOW STRENGTH ASPIRIN 81 MG PO (08:02)
[2023-09-02] MEDS: VITAMIN D3 (cholecalciferol) 50 MCG PO (08:02)
[2023-09-02] MEDS: LIPITOR 80 MG PO (08:02)
[2023-09-02] MEDS: PLAVIX 75 MG PO (08:02)
[2023-09-02] MEDS: SODIUM BICARBONATE 650 MG PO ×2 (08:02→20:50)
[2023-09-02] MEDS: APRESOLINE 25 MG PO ×2 (11:03→20:50)
[2023-09-02 12:09] LABS: APTT 85.3 Sec (23.4-35.0)
--- NOTE | 2023-09-02 12:14 | PTCARENOTE ---
PT assessment remains unchanged, PT continues to c/o pain in the right outer foot , Dilaudid as prescribed, Cardene continues @ 5 mg/hr for SBP 140-160, Heparin continues @ 900 unit/hr, awaiting PTT result for evaluation, PT able to make needs
known, call ríos in reach
--- NOTE | 2023-09-02 12:52 | PTCARENOTE ---
PT c/o dizziness, feels like she cant swallow, have not noticed any issues with pills, swallows without difficulty, no coughing or gagging noted, notified Isabel Calvillo STONEWORKER, received order for Isabel Vega to come see PT
--- NOTE | 2023-09-02 12:58 | CM ---
CM following re: discharge planning.
Discussed in Rounds, reviewed pt's chart, met with pt.
Pt is a 63 year old female, admitted with primary dx of POD 1 diagnostic arteriogram, AFX stent graft placement, balloon angioplasty
Pt reports she lives with in a 2SH, 2 steps to enter, has 2 supportive sons. Pt reports her is w/c bound and uses a scooter to get around. Pt reports she experienced difficulties with walking for the past week and her younger son
Lonny came to help. Pt feels she will need some help upon the discharge or even to go to a SNF for a short term rehab.
PT and OT will evaluate the pt to determine a level of care at discharge.
PCP: Heri Huston
pharmacy: [facility]
D/c plan: most likely home with VN services vs SNF. PT and OT to evaluate.
CM will follow with discharge plan updates as hospitalization progresses
--- NOTE | 2023-09-02 13:39 | W.PN.UPDATE ---
Update Note
Progress Note Update
We were asked to evaluate regarding patient expressing slight difficulty swallowing. She subsequently developed nausea. Now noting anxiety as well. Possible dizziness or lightheadedness as well. Earlier was reported to me that she had headache
as well. Patient is denying a headache currently. She does note anxiety over her feet being discolored more to baseline again (this morning were pink, and now her toes again have slight purplish discoloration). Her exam is stable. She does
appear anxious. However her breathing is unlabored. Neurologically no focal deficits. Moves all extremities well. Pupils equal and reactive bilaterally. Abdomen is soft, nondistended, nontender. Groins flat bilaterally. Feet warm with 2+
easily palpable PT pulses bilaterally. Toes are warm bilaterally. Does have slight purplish discoloration splotchy throughout all 10 toes.
Plan/ Given history of moyamoya and intracranial artery bypasses and slight hypertension earlier today, will obtain stat CT scan of the head (noncontrast) to rule out any intracranial bleed. Reassured regarding toe discoloration. Pulses intact
suggesting patency of endograft. Likely related to prior atheroembolism and now likely related vasospasm distally due to anxiety or other. Regardless her toes and feet are warm. Easily palpable pedal pulses. Once CT scan is done, if no evidence
of bleed or concern for neurologic issue, will likely resume her antianxiety medication.
--- NOTE | 2023-09-02 14:13 | W.PN.UPDATE ---
Update Note
Progress Note Update
Reviewed CT imaging as well as discussed with radiologist. In his initial view, does not see any change or an acute intracranial process. CT scan of the head is stable compared to prior CT scan of the head dated 06/15/2023. (Chronic
encephalomalacia and left parietal craniectomy). No obvious source or swelling or findings to suggest etiology of dysphagia as well. He will update me if anything additional is noted.
[2023-09-02] MEDS: ZOFRAN 4 MG IV (14:17)
[2023-09-02] MEDS: XANAX 0.25 MG PO (14:17)
--- NOTE | 2023-09-02 14:37 | PTCARENOTE ---
Stat Head and neck CT, obtained, Heparin stopped as per order, PT medicated with Zofran for nausea and Xanax for anxiety, PT tearful at events of hospital stay, emotional support given, at bedside
[2023-09-02] MEDS: COMPAZINE 5 MG IV ×2 (15:00→22:01)
--- NOTE | 2023-09-02 15:42 | PN.CDI ---
CDI
- -
CDI:
Physician Documentation Request
Admit Date: 09/01/23 08:53
Dear Doctor,
Please review the following and provide your response in the progress notes.
Clinical Indicators:
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
Documented per dealer compliance representative notes, ' Mild anemia, postop..'
08/27/23 09/01/23 09/02/23
09:59 13:34 05:20
Hgb 12.2 11.3 L 10.1 L
Hct 36.7 L 32.9 L 30.2 L
Based on the above, could you clarify, in your progress note, which of the following is the most likely type of anemia you are evaluating, monitoring and/or treating?
Acute blood loss anemia
Anemia postop only
Other ( please specify)
Use of terms such as suspected, likely, concern for, or probable (associated with a specific diagnosis that is being evaluated, monitored, or treated as if it exists) are acceptable and can be coded in the inpatient setting, when documented at the
time of discharge.
Thank you,
Lavonne Sanchez RN
CDI Specialist
[place] [employer]
Please use your independent medical judgment in providing your response.
--- NOTE | 2023-09-02 16:26 | PTCARENOTE ---
Zofran did not help PT's nausea, notified Isabel CAMARILLO, received order for Compazine, administered as ordered, after administration rechecked PT's nausea, all nausea is gone, and PT is resting without complaints
[2023-09-02] MEDS: ROXICODONE 5 MG PO (18:51)
--- NOTE | 2023-09-02 18:57 | PTCARENOTE ---
Urine in Portillo blood tinged, notified Priscila CLAYTON,,no new orders
--- NOTE | 2023-09-02 21:00 | PTCARENOTE ---
Rec'd care of patient at 1900. Patient resting comfortably. at bedside. Neurovascular check completed with previous RN. Pulses palpable. B/l groin sites intact. Vitals stable. Cardene gtt infusing at 2.5 mg/hr. Goal SBP 140-160. Right radial
arterial line leveled and zeroed. NSR with first degree avb and BBB on tele monitor. Trace anasarca. Pulse ox high 80's on 3L nc. O2 increased to 6L nc in order to maintain POX >92%. Lung sounds diminished/coarse throughout. No BM. Portillo draining
blood tinged urine with clots initially. Around 1999, urine output yellow/adi. Patient repositioned for comfort. Call ríos within reach.
[2023-09-02] MEDS: CYMBALTA DELAYED RELEASE 30 MG PO (21:18)
[2023-09-02] MEDS: CARDIZEM CD 180 MG PO (21:18)
[2023-09-03] VITALS (11 sets, daily range): BP systolic 141–171; BP diastolic 51–79; BMI 24.0
[2023-09-03] MEDS: TYLENOL 650 MG PO ×6 (00:11→19:58)
--- NOTE | 2023-09-03 00:15 | PTCARENOTE ---
Cardene gtt increased to 5mg/hr for SBP 170. Attempted to wean patient to 4L nc; pulse ox down to 86%. Titrated back up to 6L nc. Patient only complaint is some lingering nausea. Rec'd compazine at 2200. All other assessments unchanged.
[2023-09-03] MEDS: SYNTHROID 100 MCG PO (04:40)
[2023-09-03] MEDS: CARDENE 200 IV (04:40)
--- NOTE | 2023-09-03 05:31 | PTCARENOTE ---
Patient's pulse ox 90-92% on 6L nc at rest. With exertion, dropping into the mid 80's. Patient denies dyspnea. Repositioned high in the bed and encouraged to take deep breaths. Lung sounds very shallow and diminished. LABORER CARPENTRY DOCK notified. Order for cxr and
BNP placed. Patient states she has been on a diuretic in the past.
[2023-09-03 05:33] LABS: Hematocrit 29.8 % (37.0-47.0); Hemoglobin 9.8 g/dL (12.0-16.0); Mean Corp Hgb Conc. 32.9 g/dL (33.0-37.0); Mean Corpuscular Hgb 30.9 pg (27.0-31.0); Mean Platelet Volume 10.1 fL (7.4-10.4); Platelet Count 325 10^3/uL (130-400); Red Blood Cell Count 3.17 10^6/uL (4.20-5.40); Red Cell Dist. Width 12.9 % (11.5-14.5); White Blood Cell Count 24.2 10^3/uL (4.8-10.8)
[2023-09-03 05:50] LABS: Blood Urea Nitrogen 28 mg/dl (7-17); Calcium 9.1 mg/dl (8.4-10.2); Carbon Dioxide 22 mmol/L (22-30); Chloride 101 mmol/L (98-107); Estimated Creatinine Clearance 27 ml/min; Glucose 131 mg/dl (70-99); Potassium 3.7 mmol/L (3.5-5.1); Sodium 137 mmol/L (135-145); eGFR 25.99
[2023-09-03] MEDS: ROXICODONE 5 MG PO ×2 (06:06→15:30)
[2023-09-03 06:07] LABS: NT-proBNP 4650 pg/ml
--- NOTE | 2023-09-03 07:27 | W.PN.INTV ---
Addendum entered and electronically signed by Melisa Perez DO 09/03/23 13:42:
Anemia postop only
Original Note:
Today's Communication / Plan
Recommendations
Doing well postop, sitting in chair/OOB
Remains on cardene, BP management per team
PT/OT, IS
Tolerating diet
Remains in ICU until off gtts
Assessment
-
Patient is a 63-year-old female with previous history of hypertension, CAD, PAD, COPD presenting for elective vascular procedure. She had been complaining of worsening leg pain with difficulty ambulating. She has known descending thoracic aortic
disease involving infrarenal abdominal aorta extending into the iliac arteries bilaterally. Underwent diagnostic arteriogram, stent graft placement and balloon angioplasty 09/01/2023. Adm to ICU.
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
Leukocytosis
Mild anemia, postop
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
COPD
Moderate obstruction, follows Dr White
Chronic cough noted
Moderate cigarette smoker (10-19 cigs/day)
TIA, recurrent
Ovarian cancer diagnosed age (no chemo, RT)
Hypertension
Hypercholesterolemia
Hypothyroidism
Moyamoya syndrome
CAD with occluded RCA
CKD 3/4
Vulva cancer (no RT, chemotherapy)
PAD
Appendectomy 02/1992
Hysterectomy, BSO, omentectomy 02/1992
Partial vulvectomy 2009
Brain bypass x3
Appendectomy
Plan
Patient is s/p arteriogram/graft/angioplasty by vascular surgery service, POD #2
Continue observation following procedure
Follow neurovascular checks per protocol
ASA and statin on board
Follow BP monitoring and parameters as set by primary team
Cardiac history noted--HTN/CAD
Now on cardene for tight BP control--remains on/wean as tolerated
BP management per team
Monitor on telemetry
Pain control per protocol
RASS goal 0
Prior history of pulmonary disease includes COPD, smoking hx includes current smoker 1/2-1PPD
Smoking cessation encouraged, NRT PRN
CXR reviewed indicating no acute disease
Prior PFTs for review showing moderate obstruction
Can resume home inhalers
Encouraged IS
Diet advancement per protocol
Aspiration precautions
GI prophylaxis if indicated for stress ulcer prevention in the critically ill
CKD history
Creat at baseline, follow UO
Critical I/Os
Void trials
Replete electrolytes as needed
No signs/symptoms suspicious for infectious etiology at this time
Will observe off antibiotics for now
Follow temperatures/CBC
Hb and platelets postoperatively stable
DVT prophylaxis recommended if not contraindicated based on procedural history -- heparin SQ and mechanical SCDs
Encouraged OOB/PT/OT/ambulation once cleared by surgical team
Diagnostic Data
Chest X-Ray: 08/13/23- No acute disease of the chest.
CT Scan: AP 06/25/23- IMPRESSION:
1. Advanced aortic atherosclerotic changes without aneurysmal dilation. Irregular mural thrombus along distal thoracic and abdominal aorta. Moderate stenosis of the infrarenal aorta.
2. High-grade stenosis of the proximal right common iliac artery. Moderate stenosis left common iliac artery. Left profunda femoral stenosis. Three-vessel runoff on the right and 2 vessel runoff on left.
3. Bilateral renal cortical scarring. Atrophic changes of the left kidney as compared with the right.
[facility] 04/09/23- CONCLUSIONS
1: Inferobasal akinesis with EF 54%
2: Single-vessel CAD (chronic total occlusion of the proximal RCA)
3. Recommend continued medical therapy with aspirin and high intensity statin
Echo: 03/23/23- Normal biventricular size and systolic function without regional wall motion abnormality. Possible basal to mid inferior hypokinesis. Mild concentric left ventricular hypertrophy.
No significant valvular disease. Compared to previous echo 05/10/12, the possible basal inferior hypokinesis is new.
PFT's: 05/28/23- FVC was 2.06L or 58% predicted. FEV1 was 1.10L or 40% predicted. Ratio 53. Post FEV1 was 1.22L or 44% predicted, 11% change.
Lung volumes: TLC was 4.05L or 74% predicted. RV/TLC was 49%. Diffusion was 10.17 or 42% predicted. When adjusted for hemoglobin was unchanged.
Spirometry demonstrates severe obstruction. There was significant bronchodilator response in the FVC. Lung volumes demonstrate mild restriction. There is borderline air trapping. There is a moderate diffusion impairment.
Reports and relevant images were personally reviewed.
-----
Critical care time 32 mins -- this includes review of history, physical exam, medications, hemodynamic/ventilator parameters, laboratory data, imaging and discussion with house staff, pharmacy, respiratory therapy, merchandise planning manager, and nursing.
Subjective Dataa
Subjective Data
Date of Service:
Date of Service: September 03, 2023
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
Subjective:
no acute events ON, sitting in chair
anxious but otherwise stable
remains on cardene
Objective Data
Data Reviewed
Vital Signs / I&O / Oxygen:
Vital Signs
Temp Pulse Resp BP Pulse Ox
97.1 F 75 15 161/68 92
09/03/23 03:18 09/03/23 06:00 09/03/23 06:00 09/02/23 21:18 09/03/23 06:00
Intake and Output
09/02/23 09/03/23 09/04/23
06:59 06:59 06:59
Intake Total 2356 / 2445 945.5 / 945.5
Output Total 1050 / 1110 825 / 825
Balance 1306 / 1335 120.5 / 120.5
SaO2 92
Nasal Cannula flow liters per 6
minute
Physical Exam
General: Comfortable and Other (NAD)
HEENT: Normocephalic, Anicteric and Moist Mucous Membranes
Cardiovascular: S1-S2 and Regular Rhythm
Respiratory: Clear and Non-Labored Respirations
GI: Soft, Non Distended and Non Tender
Neurology: Awake, Alert, Oriented, AO x 3 and No Motor Deficits
Skin: Warm, Dry and Good Color
Labs/Micro/Reports
Lab Data
09/03/23 04:56
09/03/23 04:56
Laboratory Results
09/02/23
11:40
APTT 85.3 H
--- NOTE | 2023-09-03 07:46 | W.PN.VS ---
Today's Communication / Plan
-
Seen and assessed with Dr. Brooks
Assessment/Plan
-
POD 2 diagnostic arteriogram, AFX stent graft placement, balloon angioplasty
Plan:
-Wean O2 as able
-Wean Cardene
-Cont ASA/plavix
-Nephrology consult, creat 2.1 today, higher oxygen requirement, retaining fluid
Subjective Data
-
Date of Service: September 03, 2023
Patient seen at bedside this a.m. with Dr. Brooks. Patient is on 5 L NC to keep sats above 90%. Cardene continues for SBP goal 140-160. Patient states she overall feels better than yesterday, denies nausea.
Objective Data
-
Vital Signs
Temp Pulse Resp BP Pulse Ox
97.1 F 75 15 161/68 92
09/03/23 03:18 09/03/23 06:00 09/03/23 06:00 09/02/23 21:18 09/03/23 06:00
Intake and Output
09/02/23 09/03/23 09/04/23
06:59 06:59 06:59
Intake Total 2356 / 2445 945.5 / 945.5
Output Total 1050 / 1110 825 / 825
Balance 1306 / 1335 120.5 / 120.5
Intake:
IV fluids (Total) 2356 / 2445 945.5 / 945.5
Heparin 1032 / 1041 63 / 63
Nss 1,000 ml @ 80 mls/hr IV . 1120 / 1200 800 / 800
[id number] ALEK Rx#:[id number]
cardene 82.5 / 82.5
pre surgical NSS bolus 204 / 204
Output:
Urine, Portillo 1050 / 1110 825 / 825
Lab Results
09/03/23 04:56
09/03/23 04:56
Calcium 9.1 mg/dl (8.4-10.2) 09/03/23 04:56
Magnesium 1.7 mg/dl (1.6-2.3) 09/01/23 13:34
Physical Exam
-
AAOx3
No tachypnea
No tachycardia
SBP 140-160
Abd soft, NT, ND
Groin sites c/d/i, no hematoma or drainage
BL feet warm, cap refill <2
Palpable PT pulses BL
[2023-09-03] MEDS: HEPARIN 5000 UNITS SC (09:01)
[2023-09-03] MEDS: SODIUM BICARBONATE 650 MG PO ×2 (09:02→19:58)
[2023-09-03] MEDS: LIPITOR 80 MG PO (09:02)
[2023-09-03] MEDS: LOW STRENGTH ASPIRIN 81 MG PO (09:02)
[2023-09-03] MEDS: APRESOLINE 25 MG PO ×2 (09:02→20:00)
[2023-09-03] MEDS: PLAVIX 75 MG PO (09:02)
--- NOTE | 2023-09-03 10:00 | PTCARENOTE ---
pt awake and alert, anxious , NSR on monitor, BP 143/51 [place] and 141/61 cuff , she is on 5mg of Cardene and turned off at 10:00 her blood pressure 140s with Cardene off , refusing breakfast , her abd is soft non tender and round , juan posterior
tibial pulses are palpable and bilateral DP are weakly palpable , her bilateral feet to thighs are mottled , warm to touch , Dr Brooks and vascular size roller operator at bedside this am and aware , labs noted WBC up to 24.2 , pt encouraged to pulmonary toilet , IS
given TV 500s
--- NOTE | 2023-09-03 11:44 | W.PN.UPDATE ---
Addendum entered and electronically signed by Konrad Brooks MD 09/03/23 15:02:
I had reviewed CT angiogram images. Abdominal aortic stent graft and iliac limbs appear patent without any evidence of thrombotic occlusion. Internal iliac arteries also appear patent. Atherosclerotic disease at the origin of the left internal
iliac, but appears stable from baseline. Bilateral profunda arteries appear patent without significant stenosis. Shaggy atherosclerotic plaque in distal descending thoracic aorta with irregular contour. Discussed extensively with patient and her
. Discussed options to include coverage of the descending thoracic aortic plaque. (Potential additional atheroembolic source). However, discussed that this was present on the prior scan as well. Not definitively different. In addition,
discussed my concern about stent grafting namely paralysis/paraplegia risk with coverage of that particular segment of the thoracic aorta in short order after covering the abdominal aorta. In addition concern regarding fresh stent graft in the
aorta/iliacs. (Passage of devices through this region). Therefore in this case the benefits may be outweighed by the risks. The other alternative is continued antiplatelet or transition to anticoagulation as well as antiplatelet. However the
flip side of this is the risk of continued atheroembolism. I presented both options to the patient and her . Discussed my concern about risks as well. I discussed with Dr. Portillo her primary surgeon who performed her procedure as well. He
is in favor of holding off on stent graft due to the risk profile. I presented this all to the patient and her . They are in agreement and wished to hold off on anything further for now invasively. We will transition to IV heparin
anticoagulation for now. Continue Plavix. Stop the aspirin. Will continue to monitor. Her symptoms appear to be stable or improved. I think likely this is due to anxiety provoked arterial spasm in the arterial level and given prior cutaneous
atheroembolism (livedo reticularis), when she gets arterial spasm that results in diminished cutaneous perfusion that results in this finding. Therefore I think covered stent graft placement at this time may actually not be as beneficial.
Therefore we are all in agreement.
Original Note:
Update Note
Progress Note Update
Seen and examined early this a.m. with [facility]OBBIN WASHER. See note. Patient was doing well with good blood pressure control. Progressively through the day has had slightly increasing oxygen requirements. In addition, patient with discoloration of the thighs
that was not present this morning. And now she notes burning discomfort in her buttocks bilaterally or her hips. On exam her abdomen is soft, nondistended, nontender. Groins are flat bilaterally. Palpable femoral pulses bilaterally she does have
apparent livedo reticularis of bilateral thighs. In addition similar discoloration of the buttocks bilaterally. She is also tender in the skin overlying the buttocks bilaterally.
Plan/ Recommend urgent CTA of the chest/abdomen/pelvis. She may have persistent thoracic aortic source of atheroembolism that may be resulting in further livido type findings. In addition, would need to make sure that internal iliac arteries are
not occluded now. I reviewed her prior CT angiogram from preoperatively as well as her angiographic images (completion images) her internal iliac arteries were both patent on that imaging. Will obtain CT angiogram urgently and review. The risks
of contrast exposure here outweigh the benefits. She does have some renal insufficiency. Discussed with pattern checker at the bedside as well. Patient's at the bedside and is aware as well.
[2023-09-03] MEDS: XANAX 0.25 MG PO ×2 (12:56→22:25)
--- NOTE | 2023-09-03 13:26 | PN.CDI ---
CDI
- -
CDI:
Physician Documentation Request
Admit Date: 09/01/23 08:53
Dear Doctor/GUIDE VISITOR,
Please review the following and provide your response in the progress notes.
Clinical Indicators:
The diagnosis of Atelectasis was included in the signed 09/02 CXR .
Additional clinical indicators in the chart include:
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
Incentive Spirometer ordered/encouraged/Pt requiring higher amounts of oxygen with noted SOB
Please indicate in your progress notes if you are in agreement that the above diagnosis is valid for this patient:
____ -Atelectasis is a valid diagnosis (Please include it in your progress notes)
____ -Atelectasis is not a valid diagnosis for this patient
____ -Atelectasis is not yet confirmed but remains a suspected condition
____ -Other
Use of terms such as suspected, likely, concern for, or probable are acceptable for a diagnosis that is being evaluated, monitored or treated as if it exists and can be coded in the inpatient setting, when documented at the time of discharge.
Thank you,
Lavonne Sanchez RN
CDI Specialist
[place] [facility]
Please use your independent medical judgment in providing your response.
--- NOTE | 2023-09-03 13:34 | PN.CDI ---
CDI
- -
CDI:
Physician Documentation Request
Admit Date: 09/01/23 08:53
Dear Doctor Todd,
Please review the following and provide your response in the progress notes.
Clinical Indicators:
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
Vascular progress note 09/02,' higher oxygen requirement, retaining fluid... Patient is on 5 L NC to keep sats above 90%....'
Patient care note 09/01 2100,' Pulse ox high 80's on 3L nc. O2 increased to 6L nc in order to maintain POX >92%. ..'
Patient care note 09/02 @ 0015,' Attempted to wean patient to 4L nc; pulse ox down to 86%. Titrated back up to 6L nc. ..'
Patient care note 09/02 @0531,' Patient's pulse ox 90-92% on 6L nc at rest. With exertion, dropping into the mid 80's. ...Lung sounds very shallow and diminished.'
Vitals Signs Respirations as high as 29
Clarify which of the following accurately represents the patient's respiratory status following surgery:
Acute Hypoxic Respiratory failure
Acute pulmonary insufficiency (following surgery)
Increasing oxygen requirements only
Other ( Please Specify)
Additional information for Pulmonary Insufficiency:
Consider when patients require nursing home oxygen therapy postoperatively
Weaned off oxygen initially then requiring supplemental oxygen
No other definitive diagnosis to support the need for oxygen (COPD exac, CHF etc.)
Unable to wean from vent
When criteria for respiratory failure not present
May extend stay or require additional resources; may need home O2
Additional information for Respiratory Failure:
Recognized criteria for Respiratory Failure (Source: [facility] Feb 2013)
ABGs: (1 or more) Symptoms Indicate:
1. p)2 <60 or RA SPO2 <91% on RA 1. Tachypnea, SOB, dyspnea 1. Type as:
2. pCO2 50 and pH <7.35 2. Use of accessory muscles a. Hypoxic
3. pO2 decrease of pCO2 increase by 3. Pallor or cyanosis b. Hypercapnic
10 mmHg from baseline if known 4. Anxiety or restlessness 2. If due to procedure or due to another cause
5. Unable to speak in full sentences
Supplemental O2 of > 40% Intubation is not required
Use of terms such as suspected, likely, concern for, or probable (associated with a specific diagnosis that is being evaluated, monitored, or treated as if it exists) are acceptable and can be coded in the inpatient setting, when documented at the
time of discharge.
Thank you,
Lavonne Sanchez RN
CDI Specialist
[place] [facility]
Please use your independent medical judgment in providing your response.
[2023-09-03 15:09] LABS: APTT 29.6 Sec (23.4-35.0)
[2023-09-03] MEDS: HEPARIN 25000 UNITS/250 ML IV (15:13)
[2023-09-03] MEDS: VITAMIN D3 (cholecalciferol) 50 MCG PO (15:30)
--- NOTE | 2023-09-03 15:45 | W.CON.NEPH ---
Consultation
-
Date/Time Consultation Requested: 09/03/23 7:45AM
Date/Time Consultation Performed: 09/03/23 3:51PM
Requesting Provider: Isabel Calvillo
Performing Provider: Magaly Shearer
Reason for Consultation: SUAD on CKD
Medical History
-
Chief Complaint: SUAD on CKD
History of Present Illness:
Mr. Harris is a 63YOF with PMH of TIA, ovarian cancer, HTN, CAD, HFpEF, CKD who is POD day 2 after diagnostic arteriogram, AFX stent graft placement, balloon abioplasty.
She is known to our group and is a patient of Dr. Cotto. He follows her for CKD. He did have some concern for renovascular disease. She did have an SUAD at the time of his visit with her. Her ARB and diuretic were held, she increased fluids, sodium
bicarb and lokelma were given. He did discuss HD with her and she states that she would never accept dialysis. Fortunately, her kidney function did improve and her Cr was 1.9 on 08/20.
Nephrology is consultedinaptient for slightly worsening kidney function in the setting of underlying CKD and need for CTA.
Past Medical History
TIA
ovarian cancer
HTN
CAD
HFpEF
CKD 3B
current smoker
COPD
Vulvar cancer
PAD
DLD
Moyamoya syndrome
Past Surgical History: Other (Appendectomy 02/1992 Hysterectomy, BSO, omentectomy 02/1992 Partial vulvectomy 2010 Brain bypass x3 Appendectomy)
Social History
Tobacco: Smoker
Alcohol: None
Drug: None
Personal:
Living: With Family
Family History
Family History: Not Pertinent
Allergies / Home Medications
Allergy/AdvReac Type Severity Reaction Status Date / Time
No Known Allergies Allergy Verified 09/01/23 09:06
�Medication �Instructions �Recorded �Confirmed �Type
clopidogrel 75 mg tablet 75 mg PO DAILY Blood Clot 05/08/12 09/01/23 History
Prevention/Tx
alprazolam 0.25 mg tablet 0.25 mg PO BID PRN anxiety 04/03/23 09/01/23 History
aspirin 81 mg capsule 81 mg PO DAILY Blood Clot 04/03/23 09/01/23 History
Prevention/Tx
atorvastatin 80 mg tablet 80 mg PO DAILY High Cholesterol 04/03/23 09/01/23 History
cholecalciferol (vitamin D3) 50 50 mcg PO DAILY Supplement 04/03/23 09/01/23 History
mcg (2,000 unit) tablet (Vitamin
D3)
diltiazem HCl 180 mg 180 mg PO HS Heart 04/03/23 09/01/23 History
capsule,extended release 24 hr Disease/Condition
(Cardizem CD)
duloxetine 30 mg capsule,delayed 30 mg PO HS Mental Health/Anxiety 04/03/23 09/01/23 History
release
levothyroxine 100 mcg tablet 100 mcg PO DAILY Thyroid 04/03/23 09/01/23 History
sodium bicarbonate 325 mg tablet 650 mg PO BID Electrolyte Repletion 08/25/23 09/01/23 History
Review of Systems
-
History Source: Patient
Skin: Rash
Physical Exam
Vital Signs
Vital Signs
Temp Pulse Resp BP Pulse Ox
98.0 F 74 15 142/41 92
09/03/23 15:11 09/03/23 09:02 09/03/23 06:00 09/03/23 09:02 09/03/23 06:00
Lab Results
WBC 24.2 10^3/uL (4.8-10.8) H 09/03/23 04:56
RBC 3.17 10^6/uL (4.20-5.40) L 09/03/23 04:56
Hgb 9.8 g/dL (12.0-16.0) L 09/03/23 04:56
Hct 29.8 % (37.0-47.0) L 09/03/23 04:56
Plt Count 325 10^3/uL (130-400) 09/03/23 04:56
Sodium 137 mmol/L (135-145) 09/03/23 04:56
Potassium 3.7 mmol/L (3.5-5.1) 09/03/23 04:56
Chloride 101 mmol/L (98-107) 09/03/23 04:56
Carbon Dioxide 22 mmol/L (22-30) 09/03/23 04:56
BUN 28 mg/dl (7-17) H 09/03/23 04:56
Creatinine 2.1 mg/dL (0.6-1.0) H 09/03/23 04:56
eGFR 25.99 09/03/23 04:56
Glucose 131 mg/dl (70-99) H 09/03/23 04:56
Calcium 9.1 mg/dl (8.4-10.2) 09/03/23 04:56
Keh-N-Gwzdjilaumz Pept 4650 pg/ml 09/03/23 04:56
Physical Exam
General: AOx3, No Distress and Nontoxic
HEENT: PERRL, EOMI, Anicteric, Conjunctivae Clear, Ear/Nose Intact, Hearing Normal, Oropharynx Clear/Moist, Dentition Intact, Neck Supple and Trachea Midline
Respiratory: Crackels
Cardiac: S1/S2, Regular Rate/Rhythm and Edema
Breast: Deferred by me
Abdomen: Soft, Nontender, Nondistended, Normal Bowel Sounds and No Hepatosplenomegaly
Rectal: Deferred by Provider
Genito-urinary: No Costovertebral Tender
Musculoskeletal: No Clubbing, No Cyanosis and Edema
Skin: Other (livedo reticularis on legs and buttock)
Neuro: Nonfocal/Grossly Intact
Psych: Mood/afflect pleasant and Insight/judgement good
Data Reviewed
-
CT Scan: Report Reviewed by me (CT CAP with common iliac artery endostent showing patency, mural thrombus on left side of descending thoracic aorta)
Labs: Labs Reviewed by me and Discussed with Physician
Old Records: Reviewed
Assessment/Plan
-
Assessment:
SUAD on CKD
Livedo reticularis
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
Mild anemia
Plan:
- patient with slight elevation in Cr to 2.1 today
- needs CT angiogram for better evaluation of casue of livedo reticularis. discussed with vasc, patient appears slightly volume overloaded. will hold off on fluids pre/post and also diuretics
- please trend BMPs
- monitor I/Os
--- NOTE | 2023-09-03 18:01 | PTCARENOTE ---
at 11:00 pt 11:30 pt started to complain of pain in her hips ,more severe on her right , she became mottled from her bilateral hips down to her jaun feet , skin warm and bilateral PT and DP pulses palpable as previous , Vascular DRAPERY HAND notified , pt was
later seen by Dr Brooks and Nephrology in room , decision was made for her to go and have a CT of abd , pelvis and chest, all aware of creatinine of 2.1, decision to get CT with IV dye for risk of thrombi occlusion , CT scan done at 12:00 , pt
continued with anxiety and given zanax as ordered at 1230 , Dr Brooks again in to see pt and family re CT scan results, pt then was oob to chair for 3 hours and tolerated well, she voided 100ml on commode , will continue to monitor low urine output ,
her appetite poor , she was encouraged to eat dinner and did tolerated small meal , pt continues with mottling of her upper and lower legs , her hips have improved and are now pink , heparin gtt started vascular protocol as ordered at 900units ,
she is currently resting in bed , anxiety has decreased
--- NOTE | 2023-09-03 20:30 | PTCARENOTE ---
Assumed care of patient at 1900. Patient alert and oriented. Anxious; emotional support provided. VSS. NSR with BBB and PVCs on tele monitor. Pulse ox 90-92% on 4L nc. Down to mid-high 80's on exertion. Lung sounds shallow/diminished throughout.
Crackles auscultated bilaterally 1/[address] up. Encouraged to utilize IS. Education provided on proper use. +BS. No BM since admission. Appetite poor. Assisted x1 to BSC to void. B/l groin sites intact. Mottling present in b/l LE from groin down to
feet. Vascular surgeon made aware on day shift. Pulses palpable. Extremities. warm. Heparin gtt infusing at 900 units/hr. PTT due at 2100.
[2023-09-03 21:38] LABS: APTT 72.6 Sec (23.4-35.0)
--- NOTE | 2023-09-03 22:00 | PTCARENOTE ---
PTT 72.6. Per protocol, Heparin gtt increased to 1000 units/hr. Next PTT ordered for 0400.
[2023-09-03] MEDS: CARDIZEM CD 180 MG PO (22:25)
[2023-09-03] MEDS: CYMBALTA DELAYED RELEASE 30 MG PO (22:25)
[2023-09-04] VITALS (23 sets, daily range): BP systolic 153–196; BP diastolic 60–117; BMI 24.1
[2023-09-04] MEDS: TYLENOL 650 MG PO ×4 (00:09→12:03)
[2023-09-04] MEDS: ROXICODONE 5 MG PO (00:09)
--- NOTE | 2023-09-04 00:16 | PTCARENOTE ---
Patient assisted to bedside commode. Pulse ox down to 83%. Exertional wheeze. Tachy with HR in the 110's. Once back in bed, quick to recover. HR low 100's. Pulse ox 89% on 4L nc. All other assessments unchanged. PRN Nataly administered for pain in b/l
feet.
[2023-09-04] MEDS: SYNTHROID 100 MCG PO (04:40)
[2023-09-04 04:49] LABS: Hematocrit 28.4 % (37.0-47.0); Hemoglobin 9.4 g/dL (12.0-16.0); Mean Corp Hgb Conc. 33.1 g/dL (33.0-37.0); Mean Corpuscular Hgb 30.7 pg (27.0-31.0); Mean Corpuscular Volume 92.8 fL (81.0-99.0); Mean Platelet Volume 10.2 fL (7.4-10.4); Platelet Count 302 10^3/uL (130-400); Red Blood Cell Count 3.06 10^6/uL (4.20-5.40); Red Cell Dist. Width 13.3 % (11.5-14.5); White Blood Cell Count 27.5 10^3/uL (4.8-10.8)
--- NOTE | 2023-09-04 04:55 | PTCARENOTE ---
Patient assisted to BSC. Standby supervision due to generalized weakness. Pulse ox down to 81%, HR 111. Denies dyspnea. Quick to recover once back to bed. AM labs sent. Repeat PTT pending.
[2023-09-04 05:02] LABS: APTT 98.9 Sec (23.4-35.0)
[2023-09-04 05:19] LABS: Blood Urea Nitrogen 35 mg/dl (7-17); Calcium 8.7 mg/dl (8.4-10.2); Carbon Dioxide 24 mmol/L (22-30); Chloride 102 mmol/L (98-107); Estimated Creatinine Clearance 27 ml/min; Glucose 122 mg/dl (70-99); HDL Cholesterol 52 mg/dl; LDL Cholesterol, Calculated 10 mg/dl; Potassium 3.8 mmol/L (3.5-5.1); Sodium 135 mmol/L (135-145); Total Cholesterol 86 mg/dl (50-199); Triglyceride 120 mg/dl (10-149); Very Low Density Lipoprotein 24 mg/dl (0-30); eGFR 25.99
[2023-09-04] MEDS: LIPITOR 80 MG PO (08:15)
[2023-09-04] MEDS: APRESOLINE 25 MG PO ×2 (08:15→19:36)
[2023-09-04] MEDS: PLAVIX 75 MG PO (08:15)
[2023-09-04] MEDS: VITAMIN D3 (cholecalciferol) 50 MCG PO (08:15)
--- NOTE | 2023-09-04 08:15 | PTCARENOTE ---
Assumed care of pt at 0715 following shift assessment. Pt assisted by unit PCT OOB to BSC to void and then chair. Pt sitting OOB in chair at time of assessment. Remains NPO per order for possibility of OR later today. Pt denies c/o pain. Reports
'some' SOB w/ exertion, denies any at rest in bed. Pox 90-91% on O2 @4 l/min via NC. No cough. Pt pulling 500ml on IS w/ much encouragement. Importance of IS reinforced w/ pt and pt able to demonstrate correct use and verbalize recommended frequency
of use. Xanax prn given at pt's request for reported feel a 'little anxious'. Emotional support provided. Call khushbu w/in pt reach and safe environment maintained.
[2023-09-04] MEDS: SODIUM BICARBONATE 650 MG PO ×2 (08:16→19:36)
[2023-09-04] MEDS: XANAX 0.25 MG PO ×2 (08:16→19:36)
--- NOTE | 2023-09-04 09:04 | W.PN.NEPH.PH ---
Today's Communication / Plan
-
follow BMP
Assessment/Plan
-
Assessment:
SUAD on CKD
Livedo reticularis
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
Mild anemia
Plan:
follow BMP
no Lasix/IVF today
ok for PO from renal standpoint
continue bicarb po
-
-
Date of Service: September 04, 2023
CC / HPI / ROS
-
Chief Complaint:
SUAD
History of Present Illness:
SUAD/Cr stable at 2.1
CTA CAP 09/02
BP stable high
WBC increasing 27.5
Review of Systems:
no CP/SOB
hand edema
Labs
-
Labs:
WBC 27.5 10^3/uL (4.8-10.8) H 09/04/23 04:24
RBC 3.06 10^6/uL (4.20-5.40) L 09/04/23 04:24
Hgb 9.4 g/dL (12.0-16.0) L 09/04/23 04:24
Hct 28.4 % (37.0-47.0) L 09/04/23 04:24
Plt Count 302 10^3/uL (130-400) 09/04/23 04:24
Sodium 135 mmol/L (135-145) 09/04/23 04:24
Potassium 3.8 mmol/L (3.5-5.1) 09/04/23 04:24
Chloride 102 mmol/L (98-107) 09/04/23 04:24
Carbon Dioxide 24 mmol/L (22-30) 09/04/23 04:24
BUN 35 mg/dl (7-17) H 09/04/23 04:24
Creatinine 2.1 mg/dL (0.6-1.0) H 09/04/23 04:24
eGFR 25.99 09/04/23 04:24
Glucose 122 mg/dl (70-99) H 09/04/23 04:24
Calcium 8.7 mg/dl (8.4-10.2) 09/04/23 04:24
Vws-E-Wvhliuqzvyu Pept 4650 pg/ml 09/03/23 04:56
Physical Exam
-
Vital Signs:
Vital Signs
Temp Pulse Resp BP Pulse Ox
98.6 F 97 18 153/69 93
09/04/23 07:50 09/04/23 08:15 09/04/23 06:00 09/04/23 08:15 09/04/23 06:00
Cardiovascular:: Regular rate and rhythm
Respiratory:: Bilateral: Coarse
Lung Excursion:: Normal
Abdomen:: Nontender and Soft
Bowel Sounds:: Normal
Extremity Edema:: +1: Bilateral: (hands)
--- NOTE | 2023-09-04 09:12 | W.PN.INTV ---
Today's Communication / Plan
Recommendations
Start broad-spectrum antibiotics with infectious workup
Re-check TTE and fluid/sodium restrict given b/l pleural effusions seen on imaging
If O2 requirements worsen then diurese with prn doses
PT/OT, IS
Tolerating diet
Front End Specialist/pulmonary service will continue to follow along
Assessment
-
Patient is a 63-year-old female with previous history of hypertension, CAD, PAD, COPD presenting for elective vascular procedure. She had been complaining of worsening leg pain with difficulty ambulating. She has known descending thoracic aortic
disease involving infrarenal abdominal aorta extending into the iliac arteries bilaterally. Underwent diagnostic arteriogram, stent graft placement and balloon angioplasty 09/01/2023. Adm to ICU.
Impression:
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
Leukocytosis
Mild anemia, postop
Acute decompensated heart failure
Worsening cough + SOB
Leukocytosis concerning for pneumonia
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
COPD
Moderate obstruction with positive/significant bronchodilator response, follows Dr White
Chronic cough noted
Upper airway cough syndrome
Moderate cigarette smoker (10-19 cigs/day) with longstanding tobacco abuse with [id number] history
TIA, recurrent
Ovarian cancer diagnosed age (no chemo, RT)
Hypertension
Hypercholesterolemia
Hypothyroidism
Moyamoya syndrome
CAD with occluded RCA
CKD 3/4
Vulva cancer (no RT, chemotherapy)
PAD
Appendectomy 02/1992
Hysterectomy, BSO, omentectomy 02/1992
Partial vulvectomy 2009
Brain bypass x3
Appendectomy
Plan
Patient is s/p arteriogram/graft/angioplasty by vascular surgery service, POD #3
Continue observation following procedure
Follow neurovascular checks per protocol
ASA and statin on board
Follow BP monitoring and parameters as set by primary team
Cardiac history noted--HTN/CAD
She has been weaned off of cardene gtt --> keep BP<140/90
BP management per team
Monitor on telemetry
Pain control per protocol
Prior history of pulmonary disease includes COPD, smoking hx includes current smoker 1/2-1PPD
Smoking cessation encouraged, NRT PRN
CXR reviewed indicating no acute disease
Prior PFTs for review showing moderate obstruction
Can resume home inhalers -she was started on Anoro with albuterol prn on her last [facility] appt on 07/01/[address] White - I will start Spiriva with Striverdi while she is here inpatient
It looks like she has bilateral pleural effusions with evidence of acute Heart Failure � Unfortunately She Has SUAD on CKD, so diuresing can be risky and she seems stable on 4L/min. Continue to monitor and if her O2 requirements worsen then we will
need to diurese prn; fluid + sodium restrict in meantime, and re-check TTE
Encouraged IS
Diet advancement per protocol
Aspiration precautions
GI prophylaxis if indicated for stress ulcer prevention in the critically ill
CKD history
Creat at baseline, follow UO
Critical I/Os
Void trials
Replete electrolytes as needed
She endorses a worsening cough with SOB, her leukocytosis is worsening and her RLL segmental bronchi appear thickened - this is concerning for pneumonia
I will start her on Abx with cefepime/vanco; check MRSA swab, and if negative then we will DC IV vanco; check blood and sputum Cx, + legionella and Strep PNA urine antigens
Follow temperatures/CBC
Hb and platelets postoperatively stable
DVT prophylaxis recommended if not contraindicated based on procedural history -- heparin gtt and mechanical SCDs
Encouraged OOB/PT/OT/ambulation once cleared by surgical team
Diagnostic Data
Chest X-Ray: 08/13/23- No acute disease of the chest.
CT Scan: AP 06/25/23- IMPRESSION:
1. Advanced aortic atherosclerotic changes without aneurysmal dilation. Irregular mural thrombus along distal thoracic and abdominal aorta. Moderate stenosis of the infrarenal aorta.
2. High-grade stenosis of the proximal right common iliac artery. Moderate stenosis left common iliac artery. Left profunda femoral stenosis. Three-vessel runoff on the right and 2 vessel runoff on left.
3. Bilateral renal cortical scarring. Atrophic changes of the left kidney as compared with the right.
[facility] 04/09/23- CONCLUSIONS
1: Inferobasal akinesis with EF 54%
2: Single-vessel CAD (chronic total occlusion of the proximal RCA)
3. Recommend continued medical therapy with aspirin and high intensity statin
Echo: 03/23/23- Normal biventricular size and systolic function without regional wall motion abnormality. Possible basal to mid inferior hypokinesis. Mild concentric left ventricular hypertrophy.
No significant valvular disease. Compared to previous echo 05/10/12, the possible basal inferior hypokinesis is new.
PFT's: 05/28/23- FVC was 2.06L or 58% predicted. FEV1 was 1.10L or 40% predicted. Ratio 53. Post FEV1 was 1.22L or 44% predicted, 11% change.
Lung volumes: TLC was 4.05L or 74% predicted. RV/TLC was 49%. Diffusion was 10.17 or 42% predicted. When adjusted for hemoglobin was unchanged.
Spirometry demonstrates severe obstruction. There was significant bronchodilator response in the FVC. Lung volumes demonstrate mild restriction. There is borderline air trapping. There is a moderate diffusion impairment.
Reports and relevant images were personally reviewed.
-----
Total time spent today was 75 minutes for this encounter. Time includes reviewing laboratory test/imaging results, reviewing pertinent medical records, obtaining and reviewing medical history, performing an appropriate exam, ordering medications,
tests and procedures. Time also includes documentation of this encounter, coordinating patient care and communicating with other healthcare professionals. Total time does not include separately billed tests performed on this date of service.
Subjective Dataa
Subjective Data
Date of Service:
Date of Service: September 04, 2023
Chief Complaint: Front End Specialist Follow Up
Subjective:
Seen and evaluated this AM. She endorses worsening cough and shortness of breath has been ongoing for the last few days. Creatinine stable at 2.1. Afebrile overnight. Saturating 90% on 4 L per nasal cannula.
Review of Systems
General: Other (Negative unless mentioned above)
Objective Data
Data Reviewed
Vital Signs / I&O / Oxygen:
Vital Signs
Temp Pulse Resp BP Pulse Ox
98.6 F 97 18 153/69 93
09/04/23 07:50 09/04/23 08:15 09/04/23 06:00 09/04/23 08:15 09/04/23 06:00
Intake and Output
09/03/23 09/04/23 09/05/23
06:59 06:59 06:59
Intake Total 945.5 / 970.5 569 / 569
Output Total 825 / 825 725 / 725
Balance 120.5 / 145.5 -156 / -156
SaO2 93
Nasal Cannula flow liters per 4
minute
Physical Exam
General: Comfortable and Other (NAD)
HEENT: Normocephalic, Anicteric and Moist Mucous Membranes
Cardiovascular: S1-S2 and Peripheral Edema (Negative)
Respiratory: Wheeze (Negative), Crackles (Bibasilar), Rhonchi (Negative) and Non-Labored Respirations
GI: Soft, Non Distended and Non Tender
Neurology: AO x 3 and No Motor Deficits
Skin: Warm, Dry and Cyanosis (Negative)
Labs/Micro/Reports
Lab Data
09/04/23 04:24
09/04/23 04:24
Laboratory Results
09/03/23 09/03/23 09/04/23
14:50 21:19 04:24
APTT 29.6 72.6 H 98.9 H
[2023-09-04 09:53] LABS: Urine Albumin 2+ (Neg - Trace); Urine Bilirubin Negative (Negative); Urine Character Clear (Clear); Urine Color Yellow; Urine Glucose Negative (Negative); Urine Ketone Negative (Negative); Urine Leukocyte Negative (Negative); Urine Nitrite Negative (Negative); Urine Occult Blood 1+ (Negative); Urine Urobilinogen Negative (Neg - 1+)
[2023-09-04 10:13] LABS: Urine Squamous Cell >30 /LPF (Few)
[2023-09-04 10:14] LABS: Urine Red Blood Cell 0-2 /HPF (0-2)
[2023-09-04 10:15] LABS: Urine Bacteria Few (Negative); Urine White Cell 0-2 /HPF (0-5)
[2023-09-04 10:50] LABS: APTT 110.8 Sec (23.4-35.0)
[2023-09-04] MEDS: ELIQUIS 5 MG PO ×2 (12:03→19:36)
--- NOTE | 2023-09-04 12:10 | PTCARENOTE ---
Heparin gtt d/c'ed and Eliquis administered as ordered. Pt sitting up at edge of bed to eat lunch. visiting at bedside. No complaints offered or changes noted from previous assessment findings. Encouraged pt to continue to use IS q1hr. Call
khushbu w/in pt reach.
--- NOTE | 2023-09-04 13:22 | CM ---
CM following re: discharge planning.
Discussed in Rounds, reviewed pt's chart, met with pt. Pt is POD# 3 diagnostic arteriogram, AFX stent graft placement, balloon angioplasty
Pt lives with in a 2SH, 2 steps to enter, has 2 supportive sons. Pt reports her is w/c bound and uses a scooter to get around. Pt reports she experienced difficulties with walking for the past week and her younger son Lonny came to
help. Pt feels she will need some help upon the discharge or even to go to a SNF for a short term rehab.
PT and OT will evaluate the pt to determine a level of care at discharge.
D/c plan: most likely home with VN services vs SNF. PT and OT to evaluate.
CM will follow with discharge plan updates as hospitalization progresses
--- NOTE | 2023-09-04 15:34 | PTCARENOTE ---
At 1500 pt asked to return to bed 15 minutes after assisted OOB to chair. Encouraged pt to remain OOB for a bit longer, educating pt in importance of mobility in aiding recovery and reducing risks. Pt verbalized understanding and agreeable to remain
OOB in chair. 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 Rates 6/10. Assisted pt back to bed. Pt denies SOB. POx 94% on O2 @ 4l/min. RR mid 20's. HR 104. BP 167/85. Bilateral breath sounds unchanged. No
respiratory distress noted. EKG completed and Yehuda CLAYTON notified of pt's complaint. Pt's present in room at time of pt's complaint- left to go home after pt returned to bed, came out of pt's room stating 'she's feeling better'. E
Johnny CLAYTON and Eve CLAYTON to bedside to evaluate pt.
--- NOTE | 2023-09-04 16:56 | W.PN.VS ---
Today's Communication / Plan
-
as above
Assessment/Plan
-
Post op AFX stent graft placement, balloon angioplasty for aortoiliac occlusive disease and presumed atheroemboli
Plan:
-Wean O2 as able
-Continue anticoag, transition to oral agent today. Single antiplatelet
-Appreciate renal input
-Unclear source of leukocytosis. She remains afebrile. Send urine. If spikes will culture and start ABX. WBC may be reactive. Perhaps pneumonia given poor inspiratory effort but could simply be atelectasis (CXR supports this)
-PT/OT/OOB
-Keep in SICU
Subjective Data
-
Date of Service: September 04, 2023
Complains of right hip pain
Livedo appears better on legs today
Stable toe pain bilat
Denies abd pain
Oxygen reqt lower
Objective Data
-
Vital Signs
Temp Pulse Resp BP Pulse Ox
98.7 F 98 19 156/82 93
09/04/23 15:46 09/04/23 11:00 09/04/23 11:00 09/04/23 11:00 09/04/23 11:00
Intake and Output
09/03/23 09/04/23 09/05/23
06:59 06:59 06:59
Intake Total 945.5 / 970.5 569 / 579 50 / 50
Output Total 825 / 825 725 / 725 300 / 300
Balance 120.5 / 145.5 -156 / -146 -250 / -250
Intake:
Oral fluids 350 / 350
IV fluids (Total) 945.5 / 970.5 219 / 229 50 / 50
Heparin 63 / 63
Nss 1,000 ml @ 80 mls/hr IV . 800 / 800
[id number] [id number] Rx#:[id number]
cardene 82.5 / 107.5 75 / 75
heparin gtt 144 / 154 50 / 50
Output:
Urine, Portillo 825 / 825
Urine, Voided 725 / 725 300 / 300
Lab Results
09/04/23 04:24
09/04/23 04:24
Calcium 8.7 mg/dl (8.4-10.2) 09/04/23 04:24
Magnesium 1.7 mg/dl (1.6-2.3) 09/01/23 13:34
Physical Exam
-
Non toxic appearing
Non labored breathing
NC O2
POOR inspiratory effort.
Abd soft, NT
Groins soft bilat
Improved area of skin mottling right lateral hip
Improved mottling LE's
Palp PT's bilat
Legs/feet warm bilat
--- NOTE | 2023-09-04 17:00 | PTCARENOTE ---
Pt resting quietly w/ eyes closed. No further c/o pain. No distress noted.
[2023-09-04 17:37] LABS: Troponin I 0.026 ng/ml
[2023-09-04] MEDS: STRIVERDI RESPIMAT 2 PUFF INH (17:57)
[2023-09-04] MEDS: SPIRIVA RESPIMAT 2.5 MCG 2 PUFF INH (17:57)
[2023-09-04] MEDS: STERILE WATER FOR INJECTION 10 ML IV (19:36)
[2023-09-04] MEDS: MAXIPIME 1000 MG IV (19:36)
[2023-09-04] MEDS: VANCOCIN 300 ML IV (19:47)
[2023-09-04] MEDS: VANCOCIN 300 MG IV (19:47)
--- NOTE | 2023-09-04 20:00 | PTCARENOTE ---
Received patient at 1900. Pt. currently in bed. Awake, alert, and oriented. Denies pain/discomfort. States she is anxious. PRN Xanax given, see MAR. Afebrile. Heart rhythm sinus. Currently on 4L nasal cannula. Lungs sound diminished. Cholesterol
lowering diet ordered, pt. noted to have poor appetite. Encouraged patient to eat more. Pt. voiding in toilet without issue. Skin as documented. Discussed plan of care. Vital signs stable at this time.
--- NOTE | 2023-09-04 20:00 | PHA.VAN.IN ---
Assessment
- Assessment
Renal Function: Appears elevated from baseline (SUAD on CKD)
Concomitant Antimicrobials: Cefepime
Plan
- Plan
Initial / Loading Dose: Vancomycin 1500mg given 09/03 at 1946
MRSA Screen: Ordered per protocol
Will dose vancomycin by level due to renal function. MRSA PCR in will be available in AM. No level ordered at this time. Will f/u and order level if Vancomycin continued.
Pharmacokinetics Vancomycin I
- -
Patient Age: 63
Patient Sex: Female
Vancomycin Day #: 1
Indication: Pulmonary/Respiratory
Requesting Provider: Dr. Choudhury
Pertinent Antimicrobial Allergies:
NKA
Height / Weight:
Height 5 ft 7 in
Actual Weight 69.8 kg
- Vital Signs / Lab Results
Temp Pulse Resp BP Pulse Ox
98.7 F 113 18 167/97 92
09/04/23 15:46 09/04/23 18:01 09/04/23 18:01 09/04/23 19:36 09/04/23 18:01
Lab Results - Hematology
09/02/23 09/03/23 09/04/23
05:20 04:56 04:24
WBC 18.6 H 24.2 H 27.5 H
Lab Results - Chemistry
09/02/23 09/03/23 09/04/23
05:20 04:56 04:24
BUN 21 H 28 H 35 H
Creatinine 1.8 H 2.1 H 2.1 H
Estimated Creat Clear 31 27 27
Lab Results - Urine
09/04/23
09:41
Urine Nitrite (Reflex) Negative
Leukocyte Esterase Rfl Negative
Urine WBC (Reflex) 0-2
Ur Squamous Epith Cells >30
Urine Bacteria (Reflex) Few A
Microbiology Results
09/04/23 09:41 Legionella Urinary Antigen - Final
Urine Negative for Legionella pneumophila Serogroup 1 antigen.
A negative result does not rule out the possiblity of
Legionella infection due to other serogroups or species of
Legionella. Clinical correlation is recommended.
Streptococcus pneumoniae Antigen (M - Final
Negative for Streptococcus pneumoniae antigen.
A negative result does not exclude infection with
Streptococcus pneumoniae. Clinical correlation is
recommended.
[2023-09-04] MEDS: CYMBALTA DELAYED RELEASE 30 MG PO (21:44)
[2023-09-04] MEDS: CARDIZEM CD 180 MG PO (21:44)
--- NOTE | 2023-09-04 23:50 | PTCARENOTE ---
Pt. assessment unchanged. No complaints of pain or discomfort. Neurovascular checks are normal. Vital signs stable at this time.
[2023-09-05] VITALS (17 sets, daily range): BP systolic 130–170; BP diastolic 59–84; PULSE 94; O2SAT 96; BMI 24.1
[2023-09-05 03:40] LABS: Hematocrit 26.9 % (37.0-47.0); Mean Corp Hgb Conc. 33.5 g/dL (33.0-37.0); Mean Corpuscular Hgb 30.9 pg (27.0-31.0); Mean Corpuscular Volume 92.4 fL (81.0-99.0); Mean Platelet Volume 10.4 fL (7.4-10.4); Platelet Count 309 10^3/uL (130-400); Red Blood Cell Count 2.91 10^6/uL (4.20-5.40); Red Cell Dist. Width 13.5 % (11.5-14.5); White Blood Cell Count 22.3 10^3/uL (4.8-10.8)
--- NOTE | 2023-09-05 03:40 | PTCARENOTE ---
Pt. assessment remains unchanged. Neurovascular checks normal. No complaints of pain or discomfort. AM labs drawn. Vital signs stable at this time.
[2023-09-05 04:03] LABS: Blood Urea Nitrogen 39 mg/dl (7-17); Calcium 8.8 mg/dl (8.4-10.2); Carbon Dioxide 25 mmol/L (22-30); Chloride 102 mmol/L (98-107); Estimated Creatinine Clearance 29 ml/min; Glucose 124 mg/dl (70-99); Potassium 3.7 mmol/L (3.5-5.1); Sodium 136 mmol/L (135-145)
[2023-09-05 04:17] LABS: Troponin I 0.037 ng/ml
[2023-09-05] MEDS: SYNTHROID 100 MCG PO (05:28)
[2023-09-05] MEDS: SPIRIVA RESPIMAT 2.5 MCG 2 PUFF INH (05:52)
[2023-09-05] MEDS: STRIVERDI RESPIMAT 2 PUFF INH (05:52)
--- NOTE | 2023-09-05 07:04 | W.PN.VS ---
Today's Communication / Plan
-
as above
Assessment/Plan
-
Post op AFX stent graft placement, balloon angioplasty for aortoiliac occlusive disease and presumed atheroemboli
Plan:
-Wean O2 as able
-Continue anticoag with oral anticoagulant and single plt therapy
-Appreciate renal input, cr improving
-Unclear source of leukocytosis, but improving. She remains afebrile. If spikes will culture and start ABX. Perhaps pneumonia given poor inspiratory effort
-PT/OT/OOB
-Keep in SICU
Subjective Data
-
Date of Service: September 05, 2023
No acute events. Says she feels well, no pain in feet
Objective Data
-
Vital Signs
Temp Pulse Resp BP Pulse Ox
98.9 F 96 22 163/84 93
09/05/23 03:30 09/05/23 06:30 09/05/23 06:30 09/05/23 06:00 09/05/23 06:30
Intake and Output
09/04/23 09/05/23 09/06/23
06:59 06:59 06:59
Intake Total 569 / 579 940 / 940
Output Total 725 / 725 800 / 800
Balance -156 / -146 140 / 140
Intake:
Oral fluids 350 / 350 590 / 590
IV fluids (Total) 219 / 229 50 / 50
cardene 75 / 75
heparin gtt 144 / 154 50 / 50
IV piggybacks 300 / 300
Output:
Urine, Voided 725 / 725 800 / 800
Other:
Number of approximated SMALL 1
amounts of urine
Number of approximated MODERATE 1
amounts of urine
Lab Results
09/05/23 03:01
09/05/23 03:01
Calcium 8.8 mg/dl (8.4-10.2) 09/05/23 03:01
Magnesium 1.7 mg/dl (1.6-2.3) 09/01/23 13:34
Physical Exam
-
NAD
non labored breathing
NC O2
abd soft, groins soft
some mottling of right toes, stable
palpable PT pulses bilaterally
[2023-09-05] MEDS: APRESOLINE 25 MG PO ×2 (08:31→19:09)
[2023-09-05] MEDS: SODIUM BICARBONATE 650 MG PO ×2 (08:31→19:10)
[2023-09-05] MEDS: LIPITOR 80 MG PO (08:31)
[2023-09-05] MEDS: ELIQUIS 5 MG PO ×2 (08:31→19:09)
[2023-09-05] MEDS: LOW STRENGTH ASPIRIN 81 MG PO (08:31)
[2023-09-05] MEDS: STERILE WATER FOR INJECTION 10 ML IV ×2 (08:32→19:10)
[2023-09-05] MEDS: MAXIPIME 1000 MG IV ×2 (08:32→19:10)
[2023-09-05] MEDS: VITAMIN D3 (cholecalciferol) 50 MCG PO (08:33)
--- NOTE | 2023-09-05 09:17 | W.PN.NEPH.PH ---
Today's Communication / Plan
-
lasix
Assessment/Plan
-
Assessment:
SUAD on CKD
Livedo reticularis
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
Mild anemia
Plan:
follow BMP
lasix trial
leave BP goal 140-160 SBP
continue bicarb po
-
-
Date of Service: September 05, 2023
CC / HPI / ROS
-
Chief Complaint:
SUAD
History of Present Illness:
SUAD/Cr down to 1.9
CTA CAP 09/02
BP stable high
WBC down 22
Review of Systems:
no CP/SOB
hand edema still
Labs
-
Labs:
WBC 22.3 10^3/uL (4.8-10.8) H 09/05/23 03:01
RBC 2.91 10^6/uL (4.20-5.40) L 09/05/23 03:01
Hgb 9.0 g/dL (12.0-16.0) L 09/05/23 03:01
Hct 26.9 % (37.0-47.0) L 09/05/23 03:01
Plt Count 309 10^3/uL (130-400) 09/05/23 03:01
Sodium 136 mmol/L (135-145) 09/05/23 03:01
Potassium 3.7 mmol/L (3.5-5.1) 09/05/23 03:01
Chloride 102 mmol/L (98-107) 09/05/23 03:01
Carbon Dioxide 25 mmol/L (22-30) 09/05/23 03:01
BUN 39 mg/dl (7-17) H 09/05/23 03:01
Creatinine 1.9 mg/dL (0.6-1.0) H 09/05/23 03:01
eGFR 29.30 09/05/23 03:01
Glucose 124 mg/dl (70-99) H 09/05/23 03:01
Calcium 8.8 mg/dl (8.4-10.2) 09/05/23 03:01
Unm-[id number]-[id number] Pept 4650 pg/ml 09/03/23 04:56
Physical Exam
-
Vital Signs:
Vital Signs
Temp Pulse Resp BP Pulse Ox
98.7 F 94 22 160/66 93
09/05/23 07:11 09/05/23 08:31 09/05/23 06:30 09/05/23 08:31 09/05/23 06:30
Cardiovascular:: Regular rate and rhythm
Respiratory:: Bilateral: Coarse
Lung Excursion:: Normal
Abdomen:: Nontender and Soft
Bowel Sounds:: Normal
Extremity Edema:: +1: Bilateral: (hands)
--- NOTE | 2023-09-05 09:33 | PTCARENOTE ---
Dr Mendez at bedside for nephrology follow up. Will update assessment trends and response follow up labs as ordered, vital signs ongoing. Update teaching and medication review with family.
[2023-09-05] MEDS: LASIX 20 MG IV (09:41)
--- NOTE | 2023-09-05 09:42 | W.PN.INTV ---
Today's Communication / Plan
Recommendations
Continue cefepime and follow up with infectious workup
Re-check TTE and fluid/sodium restrict given b/l pleural effusions seen on imaging
Trial of lasix today
Continue nasal ocean spray
If O2 requirements worsen then diurese more aggresively
PT/OT, IS
Tolerating diet
Engine Lathe Set Up Operator/pulmonary service will continue to follow along while she remains in the ICU
Assessment
-
Patient is a 63-year-old female with previous history of hypertension, CAD, PAD, COPD presenting for elective vascular procedure. She had been complaining of worsening leg pain with difficulty ambulating. She has known descending thoracic aortic
disease involving infrarenal abdominal aorta extending into the iliac arteries bilaterally. Underwent diagnostic arteriogram, stent graft placement and balloon angioplasty 09/01/2023. Adm to ICU.
Impression:
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
Leukocytosis
Mild anemia, postop
Acute decompensated heart failure
SUAD on CKD
Worsening cough + SOB - now stable s/p ABx n 09/04/2023
Leukocytosis concerning for pneumonia
Elevated troponin (0.037 checked overnight on 09/05/2023)
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
COPD
Moderate obstruction with positive/significant bronchodilator response, follows Dr White
Chronic cough noted
Upper airway cough syndrome
Moderate cigarette smoker (10-19 cigs/day) with longstanding tobacco abuse with [id number] history
TIA, recurrent
Ovarian cancer diagnosed age (no chemo, RT)
Hypertension
Hypercholesterolemia
Hypothyroidism
Moyamoya syndrome
CAD with occluded RCA
CKD 3/4
Vulva cancer (no RT, chemotherapy)
PAD
Appendectomy 02/1992
Hysterectomy, BSO, omentectomy 02/1992
Partial vulvectomy 2009
Brain bypass x3
Appendectomy
Plan
Patient is s/p arteriogram/graft/angioplasty by vascular surgery service, POD #3
Continue observation following procedure
Follow neurovascular checks per protocol
ASA and statin on board
Follow BP monitoring and parameters as set by primary team
Cardiac history noted--HTN/CAD
She has been weaned off of cardene gtt --> keep BP<140/90
BP management per team
Monitor on telemetry
Pain control per protocol
Prior history of pulmonary disease includes COPD, smoking hx includes current smoker 1/2-1PPD
Smoking cessation encouraged, NRT PRN
CXR from 09/01/2023 reviewed indicating no acute disease
Prior PFTs for review showing moderate obstruction
Can resume home inhalers -she was started on Anoro with albuterol prn on her last [facility] appt on 07/01/[address] White - on 09/03 I started Spiriva with Striverdi while she is here inpatient
Repeat CXR from 09/03 showed bilateral pleural effusions with evidence of acute heart Failure � Unfortunately she has SUAD on CKD, so diuresing can be risky and she seems stable on 3-4L/min. She received 20mg IV lasix today - follow up UOP and trend
her sCr; if her O2 requirements worsen then we will need to diurese more aggresively; fluid + sodium restrict in meantime, and re-check TTE
Encouraged IS
Diet advancement per protocol
Aspiration precautions
GI prophylaxis if indicated for stress ulcer prevention in the critically ill
CKD history
Creat near baseline but her BUN has risen, suspicious for an SUAD; follow UOP
Critical I/Os
Replete electrolytes as needed
She endorses a worsening cough with SOB, her leukocytosis is worsening and her RLL segmental bronchi appear thickened - this is concerning for pneumonia
On 09/03 I started her on Abx with cefepime/vanco; MRSA swab negative - IV vanco DC'd; follow up blood; check sputum Cx; legionella and Strep PNA urine antigens are both negative
Follow temperatures/CBC
Hb and platelets postoperatively stable
DVT prophylaxis recommended if not contraindicated based on procedural history -- heparin gtt changed to Eliquis; continue mechanical SCDs
Encouraged OOB/PT/OT/ambulation once cleared by surgical team
Continue ICU level care as per surgery.
Diagnostic Data
Chest X-Ray: 08/13/23- No acute disease of the chest.
CT Scan: AP 06/25/23- IMPRESSION:
1. Advanced aortic atherosclerotic changes without aneurysmal dilation. Irregular mural thrombus along distal thoracic and abdominal aorta. Moderate stenosis of the infrarenal aorta.
2. High-grade stenosis of the proximal right common iliac artery. Moderate stenosis left common iliac artery. Left profunda femoral stenosis. Three-vessel runoff on the right and 2 vessel runoff on left.
3. Bilateral renal cortical scarring. Atrophic changes of the left kidney as compared with the right.
[facility] 04/09/23- CONCLUSIONS
1: Inferobasal akinesis with EF 54%
2: Single-vessel CAD (chronic total occlusion of the proximal RCA)
3. Recommend continued medical therapy with aspirin and high intensity statin
Echo: 03/23/23- Normal biventricular size and systolic function without regional wall motion abnormality. Possible basal to mid inferior hypokinesis. Mild concentric left ventricular hypertrophy.
No significant valvular disease. Compared to previous echo 05/10/12, the possible basal inferior hypokinesis is new.
PFT's: 05/28/23- FVC was 2.06L or 58% predicted. FEV1 was 1.10L or 40% predicted. Ratio 53. Post FEV1 was 1.22L or 44% predicted, 11% change.
Lung volumes: TLC was 4.05L or 74% predicted. RV/TLC was 49%. Diffusion was 10.17 or 42% predicted. When adjusted for hemoglobin was unchanged.
Spirometry demonstrates severe obstruction. There was significant bronchodilator response in the FVC. Lung volumes demonstrate mild restriction. There is borderline air trapping. There is a moderate diffusion impairment.
Reports and relevant images were personally reviewed.
-----
Total time spent today was 50 minutes for this encounter. Time includes reviewing laboratory test/imaging results, reviewing pertinent medical records, obtaining and reviewing medical history, performing an appropriate exam, ordering medications,
tests and procedures. Time also includes documentation of this encounter, coordinating patient care and communicating with other healthcare professionals. Total time does not include separately billed tests performed on this date of service.
Subjective Dataa
Subjective Data
Date of Service:
Date of Service: September 05, 2023
Chief Complaint: Engine Lathe Set Up Operator Follow Up
Subjective:
Seen today at bedside. Still short of breath with activity. She seems to be overwhelmed with current hospitalization and the fact that there is fluid in her heart and that she had a heart issue in March 2023. Currently saturating 94% on 3
L/min nasal cannula. Pulse rate 96 and BP 167/72. She says she had bloody nose earlier today, and she is using the nasal [place] and it seems to be helping open up her nose. She currently denies chest pain, headache, fevers or chills.
Review of Systems
General: Other (Negative unless mentioned above)
Objective Data
Data Reviewed
Vital Signs / I&O / Oxygen:
Vital Signs
Temp Pulse Resp BP Pulse Ox
98.7 F 89 21 160/66 96
09/05/23 07:11 09/05/23 09:32 09/05/23 09:32 09/05/23 09:32 09/05/23 09:32
Intake and Output
09/04/23 09/05/23 09/06/23
06:59 06:59 06:59
Intake Total 569 / 579 940 / 940 240 / 240
Output Total 725 / 725 800 / 800 250 / 250
Balance -156 / -146 140 / 140 -10 / -10
SaO2 96
Nasal Cannula flow liters per 4
minute
Physical Exam
General: Comfortable and Other (NAD)
HEENT: Normocephalic, Anicteric and Moist Mucous Membranes
Cardiovascular: S1-S2 and Peripheral Edema (Negative)
Respiratory: Wheeze (Negative), Crackles (Bibasilar), Rhonchi (Negative) and Non-Labored Respirations
GI: Soft, Non Distended, Non Tender and Normal Bowel Sounds
Neurology: AO x 3 and Tremors (n)
Skin: Warm, Dry and Cyanosis (seen at tips of her toes)
Labs/Micro/Reports
Lab Data
09/05/23 03:01
09/05/23 03:01
Laboratory Results
09/04/23
10:32
APTT 110.8 H
Microbiology
09/05/23 03:01 Nose Nasal Screen MRSA (PCR) - Final
MRSA not detected - performed by PCR methodology.
09/04/23 09:41 Urine Legionella Urinary Antigen - Final
Negative for Legionella pneumophila Serogroup 1 antigen.
A negative result does not rule out the possiblity of
Legionella infection due to other serogroups or species of
Legionella. Clinical correlation is recommended.
09/04/23 09:41 Urine Streptococcus pneumoniae Antigen (M - Final
Negative for Streptococcus pneumoniae antigen.
A negative result does not exclude infection with
Streptococcus pneumoniae. Clinical correlation is
recommended.
--- NOTE | 2023-09-05 12:59 | PTCARENOTE ---
Updated assessment, vital signs ongoing and as documented. Weaned to 3lpm n/c saturation 96%. Lasix as ordered. Updated antibiotic trends as peR LAB/PHARAMCY. Update at bedside with Intnesivist team. Follow up plan of cares and rounds. Family return
to bedside. Continue with teaching and supportive cares. Hourly rounds ongoing.
--- NOTE | 2023-09-05 14:45 | PTCARENOTE ---
Patient up ambulating hallway with PT/Ot. Vital signs and assessment unchanged. at bedside updated plan of cares, events of day and positive progress in ICU. Continue with teaching and supportive cares.
[2023-09-05] MEDS: XANAX 0.25 MG PO (19:09)
--- NOTE | 2023-09-05 19:30 | PTCARENOTE ---
Received patient at 1900. Pt. currently awake, alert, and oriented. Ambulating to bathroom. Denies pain/discomfort. Afebrile. Heart rhythm sinus. Currently on 3L nasal cannula. Lungs sound diminished. Pt. has PO diet ordered. Voiding without issue.
Skin as documented. Discussed plan of care with patient. Vital signs stable at this time.
[2023-09-05] MEDS: CYMBALTA DELAYED RELEASE 30 MG PO (20:53)
[2023-09-05] MEDS: CARDIZEM CD 180 MG PO (20:53)
--- NOTE | 2023-09-05 23:55 | PTCARENOTE ---
Pt. assessment unchanged. Neurovascular checks remain the same. Pulses present with doppler. Lower extremities mottled but warm. Patient has no complaints of pain/discomfort. Vital signs stable at this time.
[2023-09-06] VITALS (15 sets, daily range): BP systolic 121–178; BP diastolic 58–86; BMI 24.0
[2023-09-06] MEDS: SYNTHROID 100 MCG PO (05:10)
[2023-09-06 05:28] LABS: Hematocrit 24.5 % (37.0-47.0); Hemoglobin 8.5 g/dL (12.0-16.0); Mean Corp Hgb Conc. 34.7 g/dL (33.0-37.0); Mean Corpuscular Hgb 30.9 pg (27.0-31.0); Mean Corpuscular Volume 89.1 fL (81.0-99.0); Mean Platelet Volume 10.4 fL (7.4-10.4); Platelet Count 309 10^3/uL (130-400); Red Blood Cell Count 2.75 10^6/uL (4.20-5.40); Red Cell Dist. Width 13.6 % (11.5-14.5); White Blood Cell Count 17.2 10^3/uL (4.8-10.8)
[2023-09-06 05:55] LABS: Blood Urea Nitrogen 40 mg/dl (7-17); Calcium 8.4 mg/dl (8.4-10.2); Carbon Dioxide 28 mmol/L (22-30); Chloride 100 mmol/L (98-107); Estimated Creatinine Clearance 31 ml/min; Glucose 124 mg/dl (70-99); Potassium 3.3 mmol/L (3.5-5.1); Sodium 136 mmol/L (135-145); eGFR 31.27
--- NOTE | 2023-09-06 07:15 | PTCARENOTE ---
C/O headache, rubbing the front of her head. Tylenol administered. She is awake and alert. Verbalized concerns of her right foot toe#3,#4,#5 being discolored and painful. 3rd right toe cyanotic, #3 and #5 toe mottled, plantar aspect of right foot
mottled more than the left. No changes in mottling of her L/E's. C/O right hip pain. Doppler PD/DP signals bilaterally. Right FA & right hand #20g protective catheter flushed and patent. Left AC#18g protective catheter flushed and patent. Breath
sounds diminished throughout with fine crackles in the bases. She frequently is clearing her throat, states she has had this for several months. She stated it is thick and 'gets stuck on my uvula'. She did not want to take any more medication that
may resolve that given her complicated medical history. She was instructed to use the incentive spirometer frequently today, preferably 10x's /hr while she is awake. 3 liters nasal cannula 95% pulse ox, room air pulse ox 92%. No BM since admission,
refused medication. She was then encourages to order fruit, increase roughage and ambulate. She is on a 64oz fluid restriction. Safe environment maintained.
[2023-09-06] MEDS: TYLENOL 650 MG PO ×3 (07:23→17:29)
[2023-09-06] MEDS: STRIVERDI RESPIMAT 2 PUFF INH (07:50)
[2023-09-06] MEDS: SPIRIVA RESPIMAT 2.5 MCG 2 PUFF INH (07:50)
--- NOTE | 2023-09-06 08:18 | W.PN.VS ---
Today's Communication / Plan
-
See plan below for today 09/06/2023.
Assessment/Plan
-
Post op AFX stent graft placement, balloon angioplasty for aortoiliac occlusive disease and presumed atheroemboli
Plan:
� Leukocytosis improving overall. Blood cultures negative. Afebrile.
� Troponin elevated mildly today. Slight chest discomfort yesterday, mostly improved but still slightly present. Have placed consult to cardiology. (She sees cardiology as outpatient as well, history of right coronary artery occlusion with
inferior akinesis).
� Renal function stable on labs today. Appreciate nephrology evaluation and follow-up.
� Blood pressures okay, history of moyamoya. Neurologically stable
-
Total Time Spent with Patient (in minutes): 20
Subjective Data
-
Date of Service: September 06, 2023
Patient without any new complaints this morning. From what she reports to me, she had had slight bilateral chest discomfort 'under the breasts.' This was yesterday. Therefore EKG was performed and troponins had been sent. Patient notes it is
overall better, but certain movements seem to make it more obvious. It is not completely relieved. No worsening shortness of breath or any other new complaints. Continues to report right hip discomfort/pain but seems overall improved. In
addition her biggest complaint is her right lateral foot/toes pain.
Objective Data
-
Vital Signs
Temp Pulse Resp BP Pulse Ox
98.4 F 82 14 152/58 96
09/06/23 07:17 09/06/23 07:53 09/06/23 07:53 09/06/23 06:03 09/06/23 07:53
Intake and Output
09/05/23 09/06/23 09/07/23
06:59 06:59 06:59
Intake Total 940 / 940 780 / 780
Output Total 800 / 800 250 / 250
Balance 140 / 140 530 / 530
Intake:
Oral fluids 590 / 590 780 / 780
IV fluids (Total) 50 / 50
heparin gtt 50 / 50
IV piggybacks 300 / 300
Output:
Urine, Voided 800 / 800 250 / 250
Other:
Number of approximated SMALL 1
amounts of urine
Number of approximated MODERATE 1 1
amounts of urine
Lab Results
09/06/23 05:18
09/06/23 05:18
Calcium 8.4 mg/dl (8.4-10.2) 09/06/23 05:18
Magnesium 1.7 mg/dl (1.6-2.3) 09/01/23 13:34
Physical Exam
-
She is afebrile.
Awake and alert. In no acute distress. Breathing is unlabored. Abdomen is soft, nondistended, nontender.
Groins are flat bilaterally. Small incisions clean dry and intact bilaterally. No hematoma.
Buttock and thigh livedo significantly improved.
Feet are warm with easily palpable 2+ PT pulses. Right fourth/fifth toe mild discoloration/congestion appearance unchanged.
Labs reviewed. White blood cell count trending down to 17.
Troponin most recent 0.037 now.
Blood cultures no growth to date.
Recent chest x-ray findings noted.
[2023-09-06] MEDS: ELIQUIS 5 MG PO ×2 (08:25→19:51)
[2023-09-06] MEDS: VITAMIN D3 (cholecalciferol) 50 MCG PO (08:25)
[2023-09-06] MEDS: LOW STRENGTH ASPIRIN 81 MG PO (08:25)
[2023-09-06] MEDS: APRESOLINE 25 MG PO ×2 (08:26→19:50)
[2023-09-06] MEDS: SODIUM BICARBONATE 650 MG PO ×2 (08:26→19:50)
[2023-09-06] MEDS: LIPITOR 80 MG PO (08:28)
[2023-09-06] MEDS: MAXIPIME 1000 MG IV ×2 (08:28→19:51)
[2023-09-06] MEDS: STERILE WATER FOR INJECTION 10 ML IV ×2 (08:28→19:51)
--- NOTE | 2023-09-06 09:10 | W.PN.INTV ---
Today's Communication / Plan
Recommendations
Continue cefepime and follow up with infectious workup
Re-check TTE and fluid/sodium restrict given b/l pleural effusions seen on imaging
Continue nasal ocean spray
If O2 requirements worsen then diurese more aggressively -fortunately her O2 requirements have been improving and she is now on room air today breathing comfortably
Start Neurontin given her right foot/toe pain despite having warm extremity with + DP pulsation - careful with her renal function
PT/OT, IS
Tolerating diet
Coal Pulverizing Operator/pulmonary service will continue to follow along while she remains in the ICU
Assessment
-
Patient is a 63-year-old female with previous history of hypertension, CAD, PAD, COPD presenting for elective vascular procedure. She had been complaining of worsening leg pain with difficulty ambulating. She has known descending thoracic aortic
disease involving infrarenal abdominal aorta extending into the iliac arteries bilaterally. Underwent diagnostic arteriogram, stent graft placement and balloon angioplasty 09/01/2023. Adm to ICU.
Impression:
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
Leukocytosis
Mild anemia, postop
Acute decompensated heart failure
SUAD on CKD
Worsening cough + SOB - now stable s/p ABx n 09/04/2023
Leukocytosis concerning for pneumonia
Elevated troponin (0.037 checked overnight on 09/05/2023)
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
COPD
Moderate obstruction with positive/significant bronchodilator response, follows Dr White
Chronic cough noted
Upper airway cough syndrome
Moderate cigarette smoker (10-19 cigs/day) with longstanding tobacco abuse with 60-pajd-pivi history
TIA, recurrent
Ovarian cancer diagnosed age (no chemo, RT)
Hypertension
Hypercholesterolemia
Hypothyroidism
Moyamoya syndrome
CAD with occluded RCA
CKD 3/4
Vulva cancer (no RT, chemotherapy)
PAD
Appendectomy 02/1992
Hysterectomy, BSO, omentectomy 02/1992
Partial vulvectomy 2009
Brain bypass x3
Appendectomy
Plan
Patient is s/p arteriogram/graft/angioplasty by vascular surgery service, POD #4
Continue observation following procedure
Follow neurovascular checks per protocol
ASA and statin on board
Follow BP monitoring and parameters as set by primary team
Cardiac history noted--HTN/CAD
She has been weaned off of cardene gtt --> keep BP<140/90
BP management per team
Monitor on telemetry
Pain control per protocol
Prior history of pulmonary disease includes COPD, smoking hx includes current smoker 1/2-1PPD
Smoking cessation encouraged, NRT PRN
CXR from 09/01/2023 reviewed indicating no acute disease
Prior PFTs for review showing moderate obstruction
Can resume home inhalers -she was started on Anoro with albuterol prn on her last [facility] appt on 07/01/[address] White - on 09/03 I started Spiriva with Striverdi while she is here inpatient
Repeat CXR from 09/03 showed bilateral pleural effusions with evidence of acute heart Failure � Unfortunately she has SUAD on CKD, so diuresing can be risky and she seems stable on 3-4L/min. She received 20mg IV lasix on 09/04 - trend UOP and sCr; if
her O2 requirements worsen then we will need to diurese more aggresively; fluid + sodium restrict in meantime, and re-check TTE
Encouraged IS
Diet advancement per protocol
Aspiration precautions
GI prophylaxis if indicated for stress ulcer prevention in the critically ill
CKD history
Creat near baseline but her BUN has risen, suspicious for an SUAD; follow UOP
Critical I/Os
Replete electrolytes as needed
She endorses a worsening cough with SOB, her leukocytosis is worsening and her RLL segmental bronchi appear thickened - this is concerning for pneumonia
On 09/03 I started her on Abx with cefepime/vanco; MRSA swab negative - IV vanco DC'd; follow up blood; check sputum Cx; legionella and Strep PNA urine antigens are both negative
Follow temperatures/CBC
Hb and platelets postoperatively stable
DVT prophylaxis recommended if not contraindicated based on procedural history -- heparin gtt changed to Eliquis; continue mechanical SCDs
Encouraged OOB/PT/OT/ambulation once cleared by surgical team
Continue ICU level care as per surgery.
Diagnostic Data
Chest X-Ray: 08/13/23- No acute disease of the chest.
CT Scan: AP 06/25/23- IMPRESSION:
1. Advanced aortic atherosclerotic changes without aneurysmal dilation. Irregular mural thrombus along distal thoracic and abdominal aorta. Moderate stenosis of the infrarenal aorta.
2. High-grade stenosis of the proximal right common iliac artery. Moderate stenosis left common iliac artery. Left profunda femoral stenosis. Three-vessel runoff on the right and 2 vessel runoff on left.
3. Bilateral renal cortical scarring. Atrophic changes of the left kidney as compared with the right.
[facility] 04/09/23- CONCLUSIONS
1: Inferobasal akinesis with EF 54%
2: Single-vessel CAD (chronic total occlusion of the proximal RCA)
3. Recommend continued medical therapy with aspirin and high intensity statin
Echo: 03/23/23- Normal biventricular size and systolic function without regional wall motion abnormality. Possible basal to mid inferior hypokinesis. Mild concentric left ventricular hypertrophy.
No significant valvular disease. Compared to previous echo 05/10/12, the possible basal inferior hypokinesis is new.
PFT's: 05/28/23- FVC was 2.06L or 58% predicted. FEV1 was 1.10L or 40% predicted. Ratio 53. Post FEV1 was 1.22L or 44% predicted, 11% change.
Lung volumes: TLC was 4.05L or 74% predicted. RV/TLC was 49%. Diffusion was 10.17 or 42% predicted. When adjusted for hemoglobin was unchanged.
Spirometry demonstrates severe obstruction. There was significant bronchodilator response in the FVC. Lung volumes demonstrate mild restriction. There is borderline air trapping. There is a moderate diffusion impairment.
Reports and relevant images were personally reviewed.
-----
Total time spent today was 50 minutes for this encounter. Time includes reviewing laboratory test/imaging results, reviewing pertinent medical records, obtaining and reviewing medical history, performing an appropriate exam, ordering medications,
tests and procedures. Time also includes documentation of this encounter, coordinating patient care and communicating with other healthcare professionals. Total time does not include separately billed tests performed on this date of service.
Subjective Dataa
Subjective Data
Date of Service:
Date of Service: September 06, 2023
Chief Complaint: Coal Pulverizing Operator Follow Up
Subjective:
Patient seen this morning. Having painful right third�fifth toes and that even hurts when anything touches it. BP 121/86, heart rate 85 and she is on room air breathing comfortably saturating 94%. Afebrile overnight.
Review of Systems
General: Other (Negative unless mentioned above)
Objective Data
Data Reviewed
Vital Signs / I&O / Oxygen:
Vital Signs
Temp Pulse Resp BP Pulse Ox
97.9 F 85 18 164/74 93
09/06/23 11:01 09/06/23 11:00 09/06/23 08:00 09/06/23 10:19 09/06/23 11:00
Intake and Output
09/05/23 09/06/23 09/07/23
06:59 06:59 06:59
Intake Total 940 / 940 780 / 780 360 / 360
Output Total 800 / 800 250 / 250
Balance 140 / 140 530 / 530 360 / 360
SaO2 93
Nasal Cannula flow liters per 3
minute
Physical Exam
General: Comfortable and Other (NAD)
HEENT: Normocephalic, Anicteric and Moist Mucous Membranes
Cardiovascular: S1-S2 and Peripheral Edema (Negative)
Respiratory: Wheeze (Negative), Crackles (Bibasilar), Rhonchi (Negative) and Non-Labored Respirations
GI: Soft, Non Distended, Non Tender and Normal Bowel Sounds
Neurology: AO x 3 and Tremors (n)
Skin: Warm, Dry and Cyanosis (seen at tips of her toes, mainly the right foot third-fifth digits)
Labs/Micro/Reports
Lab Data
09/06/23 05:18
09/06/23 05:18
Microbiology
09/05/23 03:01 Blood/Venous Blood Culture - Preliminary
No Growth in 24 hours- Final report to follow
09/05/23 03:01 Nose Nasal Screen MRSA (PCR) - Final
MRSA not detected - performed by PCR methodology.
09/04/23 09:41 Urine Legionella Urinary Antigen - Final
Negative for Legionella pneumophila Serogroup 1 antigen.
A negative result does not rule out the possiblity of
Legionella infection due to other serogroups or species of
Legionella. Clinical correlation is recommended.
09/04/23 09:41 Urine Streptococcus pneumoniae Antigen (M - Final
Negative for Streptococcus pneumoniae antigen.
A negative result does not exclude infection with
Streptococcus pneumoniae. Clinical correlation is
recommended.
--- NOTE | 2023-09-06 09:25 | PTCARENOTE ---
Ambulatory in the santo with PCT. Limping slightly when bearing weight on right L/E. She tolerated it well. Remains in the chair.
--- NOTE | 2023-09-06 11:18 | W.PN.NEPH.PH ---
Today's Communication / Plan
-
K
Assessment/Plan
-
Assessment:
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
Livedo reticularis
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
Mild anemia
Plan:
follow BMP
no lasix today
leave BP goal 140-160 SBP
continue bicarb po
replete K
-
-
Date of Service: September 06, 2023
CC / HPI / ROS
-
Chief Complaint:
SUAD
History of Present Illness:
SUAD/Cr down to 1.8
CTA CAP 09/02
BP stable high
WBC down 17
K low 3.3
Review of Systems:
no CP/SOB
hand edema better
Labs
-
Labs:
WBC 17.2 10^3/uL (4.8-10.8) H 09/06/23 05:18
RBC 2.75 10^6/uL (4.20-5.40) L 09/06/23 05:18
Hgb 8.5 g/dL (12.0-16.0) L 09/06/23 05:18
Hct 24.5 % (37.0-47.0) L 09/06/23 05:18
Plt Count 309 10^3/uL (130-400) 09/06/23 05:18
Sodium 136 mmol/L (135-145) 09/06/23 05:18
Potassium 3.3 mmol/L (3.5-5.1) L 09/06/23 05:18
Chloride 100 mmol/L (98-107) 09/06/23 05:18
Carbon Dioxide 28 mmol/L (22-30) 09/06/23 05:18
BUN 40 mg/dl (7-17) H 09/06/23 05:18
Creatinine 1.8 mg/dL (0.6-1.0) H 09/06/23 05:18
eGFR 31.27 09/06/23 05:18
Glucose 124 mg/dl (70-99) H 09/06/23 05:18
Calcium 8.4 mg/dl (8.4-10.2) 09/06/23 05:18
Cwe-X-Rsexaeeeujv Pept 4650 pg/ml 09/03/23 04:56
Physical Exam
-
Vital Signs:
Vital Signs
Temp Pulse Resp BP Pulse Ox
97.9 F 87 18 157/70 92
09/06/23 11:01 09/06/23 08:30 09/06/23 08:00 09/06/23 08:27 09/06/23 09:15
Cardiovascular:: Regular rate and rhythm
Respiratory:: Bilateral: Coarse
Lung Excursion:: Normal
Abdomen:: Nontender and Soft
Bowel Sounds:: Normal
Extremity Edema:: None: Bilateral:
[2023-09-06] MEDS: KCL 40 MEQ PO (12:18)
--- NOTE | 2023-09-06 15:00 | PTCARENOTE ---
Pt assisted with ambulating in the halls. She reported that the plantar aspect of her right foot is mottled with discoloration of all the toes on her right foot. Good DP//PT doppler signals bilaterally. She ambulated in the santo, 1 assist and
intermittently held on to the counter. She reported severe pain the entire time she ambulated but wanted to go around the entire unite to meet her goal for the day.
[2023-09-06] MEDS: ROXICODONE 5 MG PO (15:09)
[2023-09-06] MEDS: NEURONTIN 300 MG PO ×2 (17:26→19:50)
--- NOTE | 2023-09-06 17:33 | PTCARENOTE ---
Reassessed right foot. Right 3rd toe mottled, 4th toe cyanotic, 5th toe mottled. Plantar mottling and cyanosis improved. Bilateral feet remain warm, left foot slightly cooler than the right. Edema improved with elevation. Pt reports severe pain with
the slightest touch of her right foot/toes.
--- NOTE | 2023-09-06 17:35 | W.PN.CD ---
Today's Communication / Plan
-
Consult dictated
Troponin and EKG tomorrow
Will consider checking echo
Impression / Plan
-
Atypical chest pain, likely non-ischemic
Likely non ischemic myocardial injury
PAD
Smoker
Known CAD
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
Livedo reticularis
COPD
HTN
Mixed hyperlipidemia
Moyamoya syndrome, 3 surgical interventions
Subjective
No angina. MATAMOROS. Aytpical pain today
Physical Exam
Vital Signs/Labs
Vital Signs
Temp Pulse Resp BP Pulse Ox
98.2 F 83 18 151/67 93
09/06/23 16:16 09/06/23 13:43 09/06/23 08:00 09/06/23 13:43 09/06/23 13:43
09/05/23 09/06/23 09/07/23
06:59 06:59 06:59
Actual Weight 69.7 kg 69.5 kg
09/06/23 05:18
09/06/23 05:18
PT 14.4 Sec (11.4-14.6) 09/02/23 05:20
INR 1.13 09/02/23 05:20
APTT 110.8 Sec (23.4-35.0) H 09/04/23 10:32
Magnesium 1.7 mg/dl (1.6-2.3) 09/01/23 13:34
Triglycerides 120 mg/dl (10-149) 09/04/23 04:24
LDL Cholesterol, Calc 10 mg/dl 09/04/23 04:24
VLDL Cholesterol, Calc 24 mg/dl (0-30) 09/04/23 04:24
HDL Cholesterol 52 mg/dl 09/04/23 04:24
09/03/23
04:56
Wff-K-Kgqztambiag Pept 4650
LAB Results
09/04/23 09/05/23
17:01 03:01
Troponin I 0.026 0.037 H*
Data Reviewed
-
Date of Service: September 06, 2023
--- NOTE | 2023-09-06 20:49 | PTCARENOTE ---
Received pt resting in bed, AAOx3, ARORA, without complaints. Pain well controlled per pt. SR on tele. BP elevated 170/70- HS hydralazine given- will monitor. Afebrile. PT and DP pulses weak on palpation. R 3rd/4th/5th toes mottled/cyanotic and tender
on palpation and movement. Bottom of foot under 3rd/4th/5th toes mottled. L big toe mildly mottled also. LEs warm. B/L groin sites AMRIT, mildly ecchymotic but soft, nontender. On RA. Lungs diminished. Fine crackles R base. I.S. encouraged. + bowel
sounds. Chol. lowering diet. OK appetite per pt. Voiding in bathroom independently. Call ríos in reach
[2023-09-06] MEDS: XANAX 0.25 MG PO (20:59)
[2023-09-06] MEDS: CYMBALTA DELAYED RELEASE 30 MG PO (20:59)
[2023-09-06] MEDS: CARDIZEM CD 180 MG PO (20:59)
--- NOTE | 2023-09-06 23:26 | PTCARENOTE ---
Pt desatting to 86% on RA. Placed on 2L NC.. now 94%. Pt ambulated to bathroom to void with standby 1 assist. Reports pain in feet with ambulation but did not want any pain medication at this time. Settled back in bed and resting. No other changes
[2023-09-07] VITALS (18 sets, daily range): BP systolic 133–171; BP diastolic 65–91; O2SAT 95; BMI 24.4
[2023-09-07 03:52] LABS: Hematocrit 25.9 % (37.0-47.0); Mean Corp Hgb Conc. 34.7 g/dL (33.0-37.0); Mean Corpuscular Hgb 30.5 pg (27.0-31.0); Mean Corpuscular Volume 87.8 fL (81.0-99.0); Platelet Count 350 10^3/uL (130-400); Red Blood Cell Count 2.95 10^6/uL (4.20-5.40); Red Cell Dist. Width 13.3 % (11.5-14.5)
[2023-09-07 04:19] LABS: Blood Urea Nitrogen 32 mg/dl (7-17); Calcium 8.7 mg/dl (8.4-10.2); Carbon Dioxide 28 mmol/L (22-30); Chloride 102 mmol/L (98-107); Estimated Creatinine Clearance 35 ml/min; Glucose 125 mg/dl (70-99); Potassium 3.8 mmol/L (3.5-5.1); Sodium 136 mmol/L (135-145); eGFR 36.01
[2023-09-07] MEDS: SYNTHROID 100 MCG PO (06:21)
--- NOTE | 2023-09-07 06:32 | PTCARENOTE ---
Pt reports increasing SOB. Pulse ox has remained stable overnight on 2L NC. Increased to 3L NC for comfort at this time. Lungs with fine crackles bibasilar. FORREST Smith notified. IV lasix ordered.
[2023-09-07] MEDS: LASIX 40 MG IV (06:37)
--- NOTE | 2023-09-07 07:28 | W.PN.VS ---
Today's Communication / Plan
-
as above
Assessment/Plan
-
Post op AFX stent graft placement, balloon angioplasty for aortoiliac occlusive disease and presumed atheroemboli
Plan:
� Leukocytosis improving overall. Blood cultures negative. Afebrile.
� appreciate cards recs. Will repeat trop, ekg today
� Renal function continues to improve
� Blood pressures okay, history of moyamoya. Neurologically stable
-Will repeat CXR today. Encouraged IS and movement. Wean O2
Subjective Data
-
Date of Service: September 07, 2023
Patient frustrated she feels about the same. Still having some pain in toes, especially right side, but back side improved. Biggest complaint is feeling like she can't catch her breath when she moves.
Objective Data
-
Vital Signs
Temp Pulse Resp BP Pulse Ox
97.7 F 84 18 163/80 93
09/07/23 03:30 09/07/23 06:37 09/06/23 08:00 09/07/23 06:37 09/07/23 06:03
Intake and Output
09/06/23 09/07/23 09/08/23
06:59 06:59 06:59
Intake Total 780 / 780 780 / 780
Output Total 250 / 250
Balance 530 / 530 780 / 780
Intake:
Oral fluids 780 / 780 780 / 780
Output:
Urine, Voided 250 / 250
Other:
Number of approximated MODERATE 1 1
amounts of urine
Number of approximated LARGE 1
amounts of urine
Lab Results
09/07/23 03:41
09/07/23 03:41
Calcium 8.7 mg/dl (8.4-10.2) 09/07/23 03:41
Magnesium 1.7 mg/dl (1.6-2.3) 09/01/23 13:34
Physical Exam
-
NAD
Breathing is unlabored
Abdomen soft, nt/nd
Groins are flat bilaterally, No hematomas
livedo present on legs bilaterally
Feet are warm with easily palpable 2+ PT pulses. Right toes mild discoloration/congestion appearance unchanged
[2023-09-07] MEDS: SPIRIVA RESPIMAT 2.5 MCG 2 PUFF INH (07:46)
[2023-09-07] MEDS: STRIVERDI RESPIMAT 2 PUFF INH (07:46)
--- NOTE | 2023-09-07 08:15 | PTCARENOTE ---
Received pt sitting with her legs crossed using her IS up to 1000. She has 2 liters nasal cannula on pulse ox 98%. She is very conversive, mildly MATAMOROS. Breath sounds improved since Lasix early this morning. Diminished in the right base no
crackles/rales present. Palpable PT pulses, doppler DP pulses. Right foot remains mottled with plantar cyanosis along with the 3rd, 4th and 5th toe. Left foot toes mottled. Knees severely mottles. L/E's equally warm. Does admit to her right foot
especially toes being extremely sensitive and painful to touch. +BSx4. No BM since admission. She denied abdominal pain and stated she has been passing gas. I informed her that it is dangerous to not have a BM for so long given she had surgery and
had required analgesia, had limited mobility and poor PO intake several days ago. She agreed and asked for Miralax. Voiding in BR. Bilateral groins sites AMRIT with mild light blue ecchymosis, no hematoma. Right FA #20g, Right hand #20g and left
AC#18g protective catheter flushed and patent. Safe environment maintained. Supportive care given. She verbalized that her goal today was to do at least 2 laps around the ICU today.
[2023-09-07] MEDS: MAXIPIME 1000 MG IV ×2 (08:30→20:38)
[2023-09-07] MEDS: STERILE WATER FOR INJECTION 10 ML IV ×2 (08:30→20:39)
[2023-09-07] MEDS: APRESOLINE 25 MG PO ×2 (08:31→20:37)
[2023-09-07] MEDS: SODIUM BICARBONATE 650 MG PO ×2 (08:32→20:38)
[2023-09-07] MEDS: NEURONTIN 300 MG PO ×2 (08:32→20:38)
[2023-09-07] MEDS: VITAMIN D3 (cholecalciferol) 50 MCG PO (08:32)
[2023-09-07] MEDS: LOW STRENGTH ASPIRIN 81 MG PO (08:32)
[2023-09-07] MEDS: ELIQUIS 5 MG PO ×2 (08:32→20:38)
[2023-09-07] MEDS: LIPITOR 80 MG PO (08:32)
--- NOTE | 2023-09-07 09:11 | W.PN.INTV ---
Today's Communication / Plan
Recommendations
Continue cefepime and follow up with infectious workup
Re-check TTE and fluid/sodium restrict given b/l pleural effusions seen on imaging
Continue nasal ocean spray
Diurese more aggressively - given IV lasix 40mg today - contiue to monitor for improvement
Encouraged to use IS 10x a hour for at least 4 hours total a day
Continue Neurontin (started 09/05) given her right foot/toe pain despite having warm extremity with + DP pulsation - careful with her renal function
PT/OT, IS
Tolerating diet
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
Assessment
-
Patient is a 63-year-old female with previous history of hypertension, CAD, PAD, COPD presenting for elective vascular procedure. She had been complaining of worsening leg pain with difficulty ambulating. She has known descending thoracic aortic
disease involving infrarenal abdominal aorta extending into the iliac arteries bilaterally. Underwent diagnostic arteriogram, stent graft placement and balloon angioplasty 09/01/2023. Adm to ICU.
Impression:
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
Leukocytosis
Mild anemia, postop
Acute decompensated heart failure
SUAD on CKD
Worsening cough + SOB - now stable s/p ABx n 09/04/2023
Leukocytosis concerning for pneumonia
Elevated troponin (0.037 checked overnight on 09/05/2023) - now normalized today at 0.03
Conditions present [employer]
COPD
Moderate obstruction with positive/significant bronchodilator response, follows Dr White
Chronic cough noted
Upper airway cough syndrome
Moderate cigarette smoker (10-19 cigs/day) with longstanding tobacco abuse with 89-ukia-[id number] history
TIA, recurrent
Ovarian cancer diagnosed age (no chemo, RT)
Hypertension
Hypercholesterolemia
Hypothyroidism
Moyamoya syndrome
CAD with occluded RCA
CKD 3/4
Vulva cancer (no RT, chemotherapy)
PAD
Appendectomy 02/1992
Hysterectomy, BSO, omentectomy 02/1992
Partial vulvectomy 2009
Brain bypass x3
Appendectomy
Plan
Patient is s/p arteriogram/graft/angioplasty by vascular surgery service, POD #6
Continue observation following procedure
Follow neurovascular checks per protocol
ASA and statin on board
Follow BP monitoring and parameters as set by primary team
Cardiac history noted--HTN/CAD
She has been weaned off of cardene gtt --> keep BP<140/90
BP management per team
Monitor on telemetry
Pain control per protocol
Prior history of pulmonary disease includes COPD, smoking hx includes current smoker 1/2-1PPD
Smoking cessation encouraged, NRT PRN
CXR from 09/01/2023 reviewed indicating no acute disease
Prior PFTs for review showing moderate obstruction
Can resume home inhalers -she was started on Anoro with albuterol prn on her last [facility] appt on 07/01/[address] White - on 09/03 I started Spiriva with Striverdi while she is here inpatient
Repeat CXR from 09/03 showed bilateral pleural effusions with evidence of acute heart Failure � Unfortunately she has SUAD on CKD, so diuresing can be risky and she seems stable on 3-4L/min. She received 20mg IV lasix on 09/04 - trend UOP and sCr; if
her O2 requirements worsen then we will need to diurese more aggressively; fluid + sodium restrict in meantime, and re-check TTE --> she was given another 40mg IV lasix today (09/06)
Encouraged IS
Diet advancement per protocol
Aspiration precautions
GI prophylaxis if indicated for stress ulcer prevention in the critically ill
CKD history
Creat near baseline but her BUN has risen, suspicious for an SUAD; follow UOP
Critical I/Os
Replete electrolytes as needed
She endorses a worsening cough with SOB, her leukocytosis is worsening and her RLL segmental bronchi appear thickened - this is concerning for pneumonia
On 09/03 I started her on Abx with cefepime/vanco; MRSA swab negative - IV vanco DC'd; follow up blood Cx; check sputum Cx; legionella and Strep PNA urine antigens are both negative
Follow temperatures/CBC
Hb and platelets postoperatively stable
DVT prophylaxis recommended if not contraindicated based on procedural history -- heparin gtt changed to Eliquis; continue mechanical SCDs
Encouraged OOB/PT/OT/ambulation once cleared by surgical team
Continue ICU level care as per surgery.
Diagnostic Data
Chest X-ray: 09/07/2023-Small right and trace left pleural effusions with associated probable atelectasis, slightly progressed.
Chest X-Ray: 09/01/23- No acute cardiopulmonary process.
CT Scan: AP 06/25/23- IMPRESSION:
1. Advanced aortic atherosclerotic changes without aneurysmal dilation. Irregular mural thrombus along distal thoracic and abdominal aorta. Moderate stenosis of the infrarenal aorta.
2. High-grade stenosis of the proximal right common iliac artery. Moderate stenosis left common iliac artery. Left profunda femoral stenosis. Three-vessel runoff on the right and 2 vessel runoff on left.
3. Bilateral renal cortical scarring. Atrophic changes of the left kidney as compared with the right.
[facility] 04/09/23- CONCLUSIONS
1: Inferobasal akinesis with EF 54%
2: Single-vessel CAD (chronic total occlusion of the proximal RCA)
3. Recommend continued medical therapy with aspirin and high intensity statin
Echo: 03/23/23- Normal biventricular size and systolic function without regional wall motion abnormality. Possible basal to mid inferior hypokinesis. Mild concentric left ventricular hypertrophy.
No significant valvular disease. Compared to previous echo 05/10/12, the possible basal inferior hypokinesis is new.
PFT's: 05/28/23- FVC was 2.06L or 58% predicted. FEV1 was 1.10L or 40% predicted. Ratio 53. Post FEV1 was 1.22L or 44% predicted, 11% change.
Lung volumes: TLC was 4.05L or 74% predicted. RV/TLC was 49%. Diffusion was 10.17 or 42% predicted. When adjusted for hemoglobin was unchanged.
Spirometry demonstrates severe obstruction. There was significant bronchodilator response in the FVC. Lung volumes demonstrate mild restriction. There is borderline air trapping. There is a moderate diffusion impairment.
Reports and relevant images were personally reviewed.
-----
Total time spent today was 35 minutes for this encounter. Time includes reviewing laboratory test/imaging results, reviewing pertinent medical records, obtaining and reviewing medical history, performing an appropriate exam, ordering medications,
tests and procedures. Time also includes documentation of this encounter, coordinating patient care and communicating with other healthcare professionals. Total time does not include separately billed tests performed on this date of service.
Subjective Dataa
Subjective Data
Date of Service:
Date of Service: September 07, 2023
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
Subjective:
Patient seen and evaluated today at bedside. Creatinine and BUN improving. Troponin normalized today from 0.037 on 09/05/2023. Afebrile overnight. She still feels short of breath and had an episode overnight requiring placement back onto O2. She
is on 3 L/min nasal cannula this morning saturating 97%. She is able to walk around the unit but still feels lots of pain in her right foot/toes. Bedside RN feels that the gabapentin is helping her pain. Patient denies chest pain, headache,
fevers or chills. She is pulling about 1500-2 L from her incentive spirometer but the volume she inhales reduce from breath of breath.
Review of Systems
General: Other (Negative unless mentioned above)
Objective Data
Data Reviewed
Vital Signs / I&O / Oxygen:
Vital Signs
Temp Pulse Resp BP Pulse Ox
98.1 F 104 16 150/91 93
09/07/23 07:43 09/07/23 11:00 09/07/23 07:51 09/07/23 10:56 09/07/23 10:56
Intake and Output
09/06/23 09/07/23 09/08/23
06:59 06:59 06:59
Intake Total 780 / 780 780 / 780 340 / 340
Output Total 250 / 250 500 / 500
Balance 530 / 530 780 / 780 -160 / -160
SaO2 93
Nasal Cannula flow liters per 2
minute
Physical Exam
General: Comfortable and Other (NAD)
HEENT: Normocephalic, Anicteric and Moist Mucous Membranes
Cardiovascular: S1-S2 and Peripheral Edema (Negative)
Respiratory: Wheeze (Negative), Crackles (Bibasilar), Rhonchi (Negative) and Non-Labored Respirations
GI: Soft, Non Distended, Non Tender and Normal Bowel Sounds
Neurology: AO x 3 and Tremors (n)
Skin: Warm, Dry and Cyanosis (seen at tips of her toes, mainly the right foot third-fifth digits)
Labs/Micro/Reports
Lab Data
09/07/23 03:41
09/07/23 03:41
Microbiology
09/05/23 03:01 Blood/Venous Blood Culture - Preliminary
No Growth in 48 hours- Final report to follow
09/06/23 08:33 Sputum Respiratory Culture - Final
09/06/23 08:33 Sputum Gram Stain - Final
09/05/23 03:01 Nose Nasal Screen MRSA (PCR) - Final
MRSA not detected - performed by PCR methodology.
09/04/23 09:41 Urine Legionella Urinary Antigen - Final
Negative for Legionella pneumophila Serogroup 1 antigen.
A negative result does not rule out the possiblity of
Legionella infection due to other serogroups or species of
Legionella. Clinical correlation is recommended.
09/04/23 09:41 Urine Streptococcus pneumoniae Antigen (M - Final
Negative for Streptococcus pneumoniae antigen.
A negative result does not exclude infection with
Streptococcus pneumoniae. Clinical correlation is
recommended.
--- NOTE | 2023-09-07 09:34 | W.PN.NEPH.PH ---
Today's Communication / Plan
-
K
Assessment/Plan
-
Assessment:
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
Livedo reticularis
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
Mild anemia
Plan:
follow BMP
leave BP goal 140-160 SBP
continue bicarb po
replete K given lasix this am
-
-
Date of Service: September 07, 2023
CC / HPI / ROS
-
Chief Complaint:
SUAD
History of Present Illness:
SUAD/Cr down to 1.6
CTA CAP 09/02
BP stable
WBC down 15
lasix IV this morning for SOB
Review of Systems:
no CP/SOB
hand edema better
Labs
-
Labs:
WBC 15.0 10^3/uL (4.8-10.8) H 09/07/23 03:41
RBC 2.95 10^6/uL (4.20-5.40) L 09/07/23 03:41
Hgb 9.0 g/dL (12.0-16.0) L 09/07/23 03:41
Hct 25.9 % (37.0-47.0) L 09/07/23 03:41
Plt Count 350 10^3/uL (130-400) 09/07/23 03:41
Sodium 136 mmol/L (135-145) 09/07/23 03:41
Potassium 3.8 mmol/L (3.5-5.1) 09/07/23 03:41
Chloride 102 mmol/L (98-107) 09/07/23 03:41
Carbon Dioxide 28 mmol/L (22-30) 09/07/23 03:41
BUN 32 mg/dl (7-17) H 09/07/23 03:41
Creatinine 1.6 mg/dL (0.6-1.0) H 09/07/23 03:41
eGFR 36.01 09/07/23 03:41
Glucose 125 mg/dl (70-99) H 09/07/23 03:41
Calcium 8.7 mg/dl (8.4-10.2) 09/07/23 03:41
Aqe-X-Hidfdeyqzws Pept 4650 pg/ml 09/03/23 04:56
Physical Exam
-
Vital Signs:
Vital Signs
Temp Pulse Resp BP Pulse Ox
98.1 F 85 16 166/85 96
09/07/23 07:43 09/07/23 08:31 09/07/23 07:51 09/07/23 08:31 09/07/23 07:51
Cardiovascular:: Regular rate and rhythm
Respiratory:: Bilateral: Coarse
Lung Excursion:: Normal
Abdomen:: Nontender and Soft
Bowel Sounds:: Normal
Extremity Edema:: None: Bilateral:
[2023-09-07] MEDS: TYLENOL 650 MG PO (12:22)
[2023-09-07] MEDS: XANAX 0.25 MG PO ×2 (12:24→20:48)
--- NOTE | 2023-09-07 12:25 | W.PN.CD ---
Today's Communication / Plan
-
monitor
OOB in chair ambulate when able
Impression / Plan
-
63-year-old woman with established CAD and complex vascular disease, who is in the hospital recovering from complex vascular surgery. We are consulted for atypical CP.
Atypical chest pain, likely non-ischemic myocardial injury in setting of CKD and recent surgery
- troponins are neg
- CP more assoc w/ some SOB and burning
PAD s/p complex vascular sx by Dr Portillo on August 31 aorto iliac stent graft w/ an Endologix AFX device
- per surgery
SOB
- received IV lasix with some improvement
HTN
- cont statin
CAD
- cont aspirin
Smoker
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
Livedo reticularis
COPD
Mixed hyperlipidemia
Moyamoya syndrome, 3 surgical interventions
Subjective
No new complaints SOB mildly improved
Late entry patient seen and examined on Sep 07 2023
Physical Exam
Vital Signs/Labs
Vital Signs
Temp Pulse Resp BP Pulse Ox
98.4 F 88 16 146/63 95
09/08/23 04:00 09/08/23 07:24 09/08/23 07:24 09/08/23 04:00 09/08/23 07:24
09/07/23 09/08/23 09/09/23
06:59 06:59 06:59
Actual Weight 155 lb 6.814 oz 145 lb 4.554 oz
09/08/23 05:32
09/08/23 05:32
PT 14.4 Sec (11.4-14.6) 09/02/23 05:20
INR 1.13 09/02/23 05:20
APTT 110.8 Sec (23.4-35.0) H 09/04/23 10:32
Magnesium 1.7 mg/dl (1.6-2.3) 09/01/23 13:34
Triglycerides 120 mg/dl (10-149) 09/04/23 04:24
LDL Cholesterol, Calc 10 mg/dl 09/04/23 04:24
VLDL Cholesterol, Calc 24 mg/dl (0-30) 09/04/23 04:24
HDL Cholesterol 52 mg/dl 09/04/23 04:24
09/03/23 09/08/23
04:56 05:32
Lxf-J-Csayqutawdl Pept 4650 [id number]
LAB Results
09/07/23
03:41
Troponin I 0.030
Physical Exam
Constitutional: No acute distress and Comfortable
EENT: Anicteric
Cardiovascular: Rhythm & rate is regular and Pedal edema is absent
Respiratory: Respiratory effort normal
GI: Soft
Neuro/Psych: AO x 3
Data Reviewed
-
Date of Service: September 08, 2023
Medical Decision Making: Reviewed Test Results
EKG: Tracing Personally Visualized and interpreted (sr)
Labs: Labs Reviewed by me (troponin trending down )
--- NOTE | 2023-09-07 13:43 | PTCARENOTE ---
Pt reports resolution of her headache. Her and her walked the entire ICU. She was dyspneic upon return. Room air pulse ox 96%. Voice quality gargly and clearing her throat more. She stated she was producing more phlegm today as compared to
recent days. Breath sounds remain dim in the right base. Right foot pain improved.
--- NOTE | 2023-09-07 14:35 | PTCARENOTE ---
Will keep pt in the ICU per Dr. Langford. Dr. Choudhury notified that pt verbalized that she feels she will need to go home with oxygen. He is aware she required 2-3 liters nasal cannula for desaturation to 86% on RA last night and pulse ox was lower
the night before necessitating oxygen therapy.
[2023-09-07] MEDS: MIRALAX 17 GRAMS PO (14:45)
[2023-09-07] MEDS: KCL 40 MEQ PO (14:45)
--- NOTE | 2023-09-07 20:30 | PTCARENOTE ---
Patient received resting in bed watching television. Patient A+A+Ox3. No neurological deficits noted. No c/o headache, dizziness or lightheadedness. No s/s of respiratory distress. Room air. SaO2 91%. Lungs diminished throughout with fine
expiratory wheeze. Occasional moist, nonproductive cough. I.S. 1500 ml. Sinus Rhythm. Heart rate 80's. No c/o chest pain, pressure or discomfort. Normoactive bowel sounds. Voiding without difficulty. Right groin site intact and open to air.
Left groin site intact and open to air. Bilateral lower extremities with positive circulation, sensation and mobility. Positive Dorsalis pedis and Posterior tibial pulses via Doppler. Right foot with mottled/bluish 4th-5th digits and plantar
region of right foot. Patient with no c/o back or flank pain. Assessment as documented.
[2023-09-07] MEDS: CARDIZEM CD 180 MG PO (22:03)
[2023-09-07] MEDS: CYMBALTA DELAYED RELEASE 30 MG PO (22:03)
[2023-09-08] VITALS (9 sets, daily range): BP systolic 135–161; BP diastolic 58–88; PULSE 91; O2SAT 95; BMI 22.8
--- NOTE | 2023-09-08 | PTCARENOTE ---
Patient sleeping without difficulty. O2 at 2L via NC HS. SaO2 95%. No further changes from previous assessment.
[2023-09-08 05:41] LABS: Hematocrit 26.7 % (37.0-47.0); Hemoglobin 9.1 g/dL (12.0-16.0); Mean Corp Hgb Conc. 34.1 g/dL (33.0-37.0); Mean Corpuscular Volume 90.8 fL (81.0-99.0); Mean Platelet Volume 10.1 fL (7.4-10.4); Platelet Count 368 10^3/uL (130-400); Red Blood Cell Count 2.94 10^6/uL (4.20-5.40); Red Cell Dist. Width 13.2 % (11.5-14.5); White Blood Cell Count 15.2 10^3/uL (4.8-10.8)
--- NOTE | 2023-09-08 06:00 | PTCARENOTE ---
Patient A+A+Ox3. No neurological deficits noted. Patient ambulating in room and to bathroom by self. Steady gait. No c/o headache, dizziness or lightheadedness. AM lab work collected and sent. Patient back in bed watching television.
Assessment/Interventions as documented.
[2023-09-08 06:02] LABS: NT-proBNP 13800 pg/ml
[2023-09-08] MEDS: SYNTHROID 100 MCG PO (06:26)
[2023-09-08 06:42] LABS: Blood Urea Nitrogen 38 mg/dl (7-17); Calcium 8.6 mg/dl (8.4-10.2); Carbon Dioxide 29 mmol/L (22-30); Chloride 100 mmol/L (98-107); Estimated Creatinine Clearance 31 ml/min; Glucose 118 mg/dl (70-99); Potassium 3.7 mmol/L (3.5-5.1); Sodium 135 mmol/L (135-145); eGFR 31.27
--- NOTE | 2023-09-08 07:00 | PTCARENOTE ---
report received from nightshift RN. pt resting comfortably, at bedside. AAOX3. pt reports pain in right foot- mostly in 4th, 5th toes. tylenol given. pt ambulating in room with standby assist. Pt NSR on telemetry heart rate 80s. bilateral dp
pulses weakly palpable, confirmed with doppler. pt on room air, sat 92-93%. lung sounds diminished. intermittent moist nonproductive cough. active bowel sounds, reports has not had bowel movement, prn miralax given. voiding in bathroom without
difficulty. bilateral groin sites CDI. see worklist for full nursing assessment and interventions. pt updated on plan of care for the day.
[2023-09-08] MEDS: STRIVERDI RESPIMAT 2 PUFF INH (07:23)
[2023-09-08] MEDS: SPIRIVA RESPIMAT 2.5 MCG 2 PUFF INH (07:23)
[2023-09-08] MEDS: ELIQUIS 5 MG PO (08:30)
[2023-09-08] MEDS: NEURONTIN 300 MG PO (08:30)
[2023-09-08] MEDS: LOW STRENGTH ASPIRIN 81 MG PO (08:30)
[2023-09-08] MEDS: VITAMIN D3 (cholecalciferol) 50 MCG PO (08:30)
[2023-09-08] MEDS: LIPITOR 80 MG PO (08:30)
[2023-09-08] MEDS: SODIUM BICARBONATE 650 MG PO (08:30)
[2023-09-08] MEDS: APRESOLINE 25 MG PO (08:30)
[2023-09-08] MEDS: STERILE WATER FOR INJECTION 10 ML IV (08:31)
[2023-09-08] MEDS: MAXIPIME 1000 MG IV (08:31)
[2023-09-08] MEDS: TYLENOL 650 MG PO (08:35)
--- NOTE | 2023-09-08 08:47 | W.PN.CD ---
Today's Communication / Plan
-
Stable from a cardiovascular perspective.
Furosemide PRN weight gain.
Echocardiogram.
Impression / Plan
-
Impression/Plan: 63-year-old woman with established CAD and Arroyo-Arroyo with complex vascular disease, who is in the hospital recovering from complex vascular surgery. We are consulted for atypical CP.
#Atypical chest pain
-Likely non-ischemic myocardial injury in setting of CKD and recent surgery.
-Troponin 0.026 --> 0.037 --> 0.030.
-CP more assoc w/ some SOB and burning.
-Continue aspirin 81, atorvastatin 80 mg daily.
-Echocardiogram today (more to assess volume).
#PAD
-s/p complex vascular sx by Dr Portillo on 09/01/2023 (aorto iliac stent graft w/ an Endologix AFX device).
-Management per surgery.
-Continue aspirin and atorvastatin.
#SOB
-Received IV furosemide with some improvement.
-Stable this morning.
-Echo will assess systolic/diastolic function, volume.
#HTN
-Chronic, stable.
-Continue diltiazem, hydralazine.
#CAD
-Chronic, stable.
-Continue aspirin, atorvastatin.
#Smoker
#CKD
#Livedo reticularis
#COPD
#Mixed hyperlipidemia
#Moyamoya syndrome, 3 surgical interventions
Critical Care Time = 32 minutes.
Subjective/Interval History:
No acute events.
She cannot feel some of her toes, apparently her new normal (per the patient).
Physical Exam
Vital Signs/Labs
Vital Signs
Temp Pulse Resp BP Pulse Ox
36.9 C 85 16 151/77 92
09/08/23 04:00 09/08/23 08:30 09/08/23 08:00 09/08/23 08:30 09/08/23 08:00
09/06/23 09/07/23 09/08/23
11:59 11:59 11:59
Actual Weight 69.5 kg 70.5 kg 65.9 kg
09/08/23 05:32
09/08/23 05:32
PT 14.4 Sec (11.4-14.6) 09/02/23 05:20
INR 1.13 09/02/23 05:20
APTT 110.8 Sec (23.4-35.0) H 09/04/23 10:32
Magnesium 1.7 mg/dl (1.6-2.3) 09/01/23 13:34
Triglycerides 120 mg/dl (10-149) 09/04/23 04:24
LDL Cholesterol, Calc 10 mg/dl 09/04/23 04:24
VLDL Cholesterol, Calc 24 mg/dl (0-30) 09/04/23 04:24
HDL Cholesterol 52 mg/dl 09/04/23 04:24
09/03/23 09/08/23
04:56 05:32
Tqt-R-Jyxqrhvprml Pept [id number]
LAB Results
09/07/23
03:41
Troponin I 0.030
Physical Exam
Constitutional: No acute distress and Comfortable
EENT: Anicteric and Moist mucous membranes
Cardiovascular: Rhythm & rate is regular, Pedal edema is absent, JVD pressure is normal, S1S2 is normal and Murmur/rub/gallop absent
Respiratory: Respiratory effort normal, Lungs clear to auscul., Wheeze Absent, Crackles Absent and Rhonchi Absent
GI: Soft, Distention absent, Flat, Non tender and Normal bowel sounds
Neuro/Psych: AO x 3
Data Reviewed
-
Date of Service: September 08, 2023
Medical Decision Making: Reviewed Test Results, Independent Historian Assessment and Test Interpretation
EKG: Tracing Personally Visualized and interpreted and Report Reviewed by me
Echo: Ordered by me
X-Ray/CT/US/MRI/NUC/PET: Image Personally Visualized and interpreted and Report Reviewed by me
Labs: Labs Reviewed by me
[2023-09-08] MEDS: MIRALAX 17 GRAMS PO (09:00)
--- NOTE | 2023-09-08 09:13 | W.PN.INTV ---
Addendum entered and electronically signed by Tyrone Choudhury MD 09/11/23 01:42:
CDI Inquiry Response: Acute Hypoxic Respiratory Failure due to acute HFpEF exacerbation and atelectasis.
Original Note:
Today's Communication / Plan
Recommendations
Continue cefepime while she remains hospitalized and follow up with infectious workup --> DC home on Cefdnir to complete a 7 day course
Continue nasal ocean spray
Diurese more aggressively - gave IV lasix 40mg today - continue to monitor for improvement; she will be discharged home on p.o. Lasix
Encouraged to use IS 10x a hour for at least 4 hours total a day
Continue Neurontin (started 09/05) given her right foot/toe pain despite having warm extremity with + DP pulsation - careful with her renal function
PT/OT, IS
Tolerating diet
Patient prepared for discharge home. Order Dispatcher Chief/Pulmonary service will now sign off. Please reconsult if there are any additional questions/concerns, or if patient's respiratory status deteriorates.
I will see her in the office for her COPD and considering she was using oxygen here at night I will consider nocturnal oximetry studies. She did a home O2 assessment today prior to discharge and she only desaturated to 92% after walking 300 feet.
Assessment
-
Patient is a 63-year-old female with previous history of hypertension, CAD, PAD, COPD presenting for elective vascular procedure. She had been complaining of worsening leg pain with difficulty ambulating. She has known descending thoracic aortic
disease involving infrarenal abdominal aorta extending into the iliac arteries bilaterally. Underwent diagnostic arteriogram, stent graft placement and balloon angioplasty 09/01/2023. Adm to ICU.
Impression:
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
Leukocytosis - stable
Mild anemia, postop
Acute decompensated heart failure - improved
SUAD on CKD --> she appears to be more CKD at this point as he Cr was 1.8 back in Mar 2023
Worsening cough + SOB - now stable s/p ABx n 09/04/2023
Elevated troponin (0.037 checked overnight on 09/05/2023) - then normalized at 0.03 as of 09/07/2023
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
COPD
Moderate obstruction with positive/significant bronchodilator response, follows Dr White
Chronic cough noted
Upper airway cough syndrome
Moderate cigarette smoker (10-19 cigs/day) with longstanding tobacco abuse with [id number] history
TIA, recurrent
Ovarian cancer diagnosed age (no chemo, RT)
Hypertension
Hypercholesterolemia
Hypothyroidism
Moyamoya syndrome
CAD with occluded RCA
CKD 3/4
Vulva cancer (no RT, chemotherapy)
PAD
Appendectomy 02/1992
Hysterectomy, BSO, omentectomy 02/1992
Partial vulvectomy 2009
Brain bypass x3
Appendectomy
Plan
Patient is s/p arteriogram/graft/angioplasty by vascular surgery service, POD #7
Continue observation following procedure
Follow neurovascular checks per protocol
ASA and statin on board
Follow BP monitoring and parameters as set by primary team
Cardiac history noted--HTN/CAD
She has been weaned off of cardene gtt --> keep BP<140/90
BP management per team
Monitor on telemetry
Pain control per protocol
Prior history of pulmonary disease includes COPD, smoking hx includes current smoker 1/2-1PPD
Smoking cessation encouraged, NRT PRN
CXR from 09/01/2023 reviewed indicating no acute disease
Prior PFTs for review showing moderate obstruction
Can resume home inhalers -she was started on Anoro with albuterol prn on her last [facility] appt on 07/01/[address] White - on 09/03 I started Spiriva with Striverdi while she is here inpatient
Repeat CXR from 09/03 showed bilateral pleural effusions with evidence of acute heart Failure � Unfortunately she had SUAD on CKD, so diuresing can be risky and she seems stable on 3-4L/min. She received 20mg IV lasix on 09/04 - trend UOP and sCr; if
her O2 requirements worsen then we will need to diurese more aggressively; fluid + sodium restrict in meantime, and re-check TTE --> she was given another 40mg IV lasix 09/06 --> continue to diurese as her proBNP has tripled. DC home on PO lasix x 4
doses with KCl. Advised her to take her weight daily, and consume low sodium/fluid restricted diet
Echo done today showed normal LV size, function, with RCA territory hypokinesis and stage I diastolic dysfunction with normal RV size/function
Encouraged IS
Diet advancement per protocol
Aspiration precautions
GI prophylaxis if indicated for stress ulcer prevention in the critically ill
CKD history
Creat near baseline but her BUN has risen, suspicious for an SUAD; follow UOP
Critical I/Os
Replete electrolytes as needed
She endorses a worsening cough with SOB, her leukocytosis is worsening and her RLL segmental bronchi appear thickened - this is concerning for pneumonia
On 09/03 I started her on Abx with cefepime/vanco; MRSA swab negative - IV vanco DC'd; follow up blood Cx; check sputum Cx; legionella and Strep PNA urine antigens are both negative
Follow temperatures/CBC
Hb and platelets postoperatively stable
DVT prophylaxis recommended if not contraindicated based on procedural history -- heparin gtt changed to Eliquis on 09/03; continue mechanical SCDs
Encouraged OOB/PT/OT/ambulation once cleared by surgical team
Patient be prepared for discharge home. Order Dispatcher Chief/Pulmonary service will now sign off. Thank you for allowing us to be involved in the care of this patient. Please reconsult if there are any additional questions/concerns, or if patient's
respiratory status deteriorates. I will arrange for her to see us in the office.
Diagnostic Data
Chest X-ray: 09/07/2023-Small right and trace left pleural effusions with associated probable atelectasis, slightly progressed.
Chest X-Ray: 09/01/23- No acute cardiopulmonary process.
CT Scan: AP 06/25/23- IMPRESSION:
1. Advanced aortic atherosclerotic changes without aneurysmal dilation. Irregular mural thrombus along distal thoracic and abdominal aorta. Moderate stenosis of the infrarenal aorta.
2. High-grade stenosis of the proximal right common iliac artery. Moderate stenosis left common iliac artery. Left profunda femoral stenosis. Three-vessel runoff on the right and 2 vessel runoff on left.
3. Bilateral renal cortical scarring. Atrophic changes of the left kidney as compared with the right.
[facility] 04/09/23- CONCLUSIONS
1: Inferobasal akinesis with EF 54%
2: Single-vessel CAD (chronic total occlusion of the proximal RCA)
3. Recommend continued medical therapy with aspirin and high intensity statin
Echo 09/08/23:
Normal LV size with normal systolic function.
LVEF is 55% by Aguilar's method of discs..
RCA territory mild hypokinesis.
Mild concentric LVH.
Stage I diastolic dysfunction suggestive of abnormal relaxation.
Normal right ventricular size and function.
Mild mitral regurgitation.
Echo: 03/23/23- Normal biventricular size and systolic function without regional wall motion abnormality. Possible basal to mid inferior hypokinesis. Mild concentric left ventricular hypertrophy.
No significant valvular disease. Compared to previous echo 05/10/12, the possible basal inferior hypokinesis is new.
PFT's: 05/28/23- FVC was 2.06L or 58% predicted. FEV1 was 1.10L or 40% predicted. Ratio 53. Post FEV1 was 1.22L or 44% predicted, 11% change.
Lung volumes: TLC was 4.05L or 74% predicted. RV/TLC was 49%. Diffusion was 10.17 or 42% predicted. When adjusted for hemoglobin was unchanged.
Spirometry demonstrates severe obstruction. There was significant bronchodilator response in the FVC. Lung volumes demonstrate mild restriction. There is borderline air trapping. There is a moderate diffusion impairment.
Reports and relevant images were personally reviewed.
-----
Total time spent today was 25 minutes for this encounter. Time includes reviewing laboratory test/imaging results, reviewing pertinent medical records, obtaining and reviewing medical history, performing an appropriate exam, ordering medications,
tests and procedures. Time also includes documentation of this encounter, coordinating patient care and communicating with other healthcare professionals. Total time does not include separately billed tests performed on this date of service.
Subjective Dataa
Subjective Data
Date of Service:
Date of Service: September 08, 2023
Chief Complaint: Order Dispatcher Chief Follow Up
Subjective:
Pt seen this AM. She is on room air breathing comfortably. Was on 2L/min overnight. She is eager to go home. Patient walked with respiratory for home O2 assessment and she was 94% on room air at rest and after walking 300 feet she desaturated
only to 92%. And she did not endorse shortness of breath. She is on room air when I saw her, saturating 94% with heart rate 86 and BP 158/76. I answered all of her questions. She denies chest pain, headache, fevers or chills.
Review of Systems
General: Other (Negative unless mentioned above)
Objective Data
Data Reviewed
Vital Signs / I&O / Oxygen:
Vital Signs
Temp Pulse Resp BP Pulse Ox
98.4 F 90 16 151/77 93
09/08/23 04:00 09/08/23 09:00 09/08/23 08:00 09/08/23 08:30 09/08/23 08:28
Intake and Output
09/07/23 09/08/23 09/09/23
06:59 06:59 06:59
Intake Total 780 / 780 1540 / 1540
Output Total 2300 / 2300
Balance 780 / 780 -760 / -760
SaO2 93
Nasal Cannula flow liters per 2
minute
Physical Exam
General: Comfortable and Other (NAD)
HEENT: Normocephalic, Anicteric and Moist Mucous Membranes
Cardiovascular: S1-S2 and Peripheral Edema (Negative)
Respiratory: Wheeze (Negative), Crackles (Bibasilar (faint)), Rhonchi (Negative) and Non-Labored Respirations
GI: Soft, Non Distended, Non Tender and Normal Bowel Sounds
Neurology: AO x 3 and Tremors (n)
Skin: Warm, Dry and Cyanosis (seen at tips of her toes, mainly the right foot third-fifth digits)
Labs/Micro/Reports
Lab Data
09/08/23 05:32
09/08/23 05:32
Microbiology
09/05/23 03:01 Blood/Venous Blood Culture - Preliminary
No Growth in 72 hours- Final report to follow
09/06/23 08:33 Sputum Respiratory Culture - Final
09/06/23 08:33 Sputum Gram Stain - Final
09/05/23 03:01 Nose Nasal Screen MRSA (PCR) - Final
MRSA not detected - performed by PCR methodology.
--- NOTE | 2023-09-08 09:34 | W.PN.VS ---
Addendum entered and electronically signed by Tony Portillo III, MD 09/08/23 12:39:
This patient was seen and examined with FORREST Galloway and FORREST Soto. I agree with the history and physical exam as well as the assessment and plan.
Significantly improved overall
Eating breakfast
Resting comfortably in bed
On room air
at bedside
No complaints
Feet are warm
Easily palpable PT pulses bilaterally
Groins soft bilaterally
Abdomen soft and nontender
Nonlabored respirations
Comfortable appearing
Home today
Complete course of antibiotics for pneumonia
Follow-up with me in the office
Signed:
Tony Portillo III, MD
[facility]
[phone] (cell)
Original Note:
Today's Communication / Plan
-
Patient seen and examined at bedside with Dr. Tony Portillo III, below plan reviewed with attending
Assessment/Plan
-
Post op AFX stent graft placement, balloon angioplasty for aortoiliac occlusive disease and presumed atheroemboli
Plan:
� Leukocytosis improving overall. Blood cultures negative. Afebrile. Will continue antibiotics.
� Renal function remained stable
� Blood pressures within range, history of moyamoya. Neurologically stable
- Encouraged IS and movement. Wean O2
-Walking home O2 assessment
-Likely discharge later this afternoon
Subjective Data
-
Date of Service: September 08, 2023
Patient seen and examined at bedside, reports improvement to near resolution in right hip/upper buttock pain, indicates only remaining discomfort is in right foot 4th and 5th digit. Reports eagerness for dc to home. Denies SOB, CP, NV, ABD pain.
Tolerating PO diet.
Objective Data
-
Vital Signs
Temp Pulse Resp BP Pulse Ox
98.6 F 97 18 153/69 93
09/04/23 07:50 09/04/23 08:15 09/04/23 06:00 09/04/23 08:15 09/04/23 06:00
Intake and Output
09/03/23 09/04/23 09/05/23
06:59 06:59 06:59
Intake Total 945.5 / 970.5 569 / 569
Output Total 825 / 825 725 / 725
Balance 120.5 / 145.5 -156 / -156
Intake:
Oral fluids 350 / 350
IV fluids (Total) 945.5 / 970.5 219 / 219
Heparin 63 / 63
Nss 1,000 ml @ 80 mls/hr IV . 800 / 800
[id number] ALE[facility] Rx#:[id number]
cardene 82.5 / 107.5 75 / 75
heparin gtt 144 / 144
Output:
Urine, Portillo 825 / 825
Urine, Voided 725 / 725
Lab Results
09/04/23 04:24
09/04/23 04:24
Calcium 8.7 mg/dl (8.4-10.2) 09/04/23 04:24
Magnesium 1.7 mg/dl (1.6-2.3) 09/01/23 13:34
Physical Exam
-
AAOx3
No tachypnea on room air
No tachycardia
Abd soft, NT, ND
Groin sites c/d/i, no hematoma or drainage
BL feet warm, cap refill <2
Palpable PT pulses BL
--- NOTE | 2023-09-08 10:24 | W.PN.UPDATE ---
Update Note
Progress Note Update
CDI:
Physician Documentation Request
Admit Date: 09/01/23 08:53
Please review the following and provide your response in the progress notes.
Clinical Indicators:
The diagnosis of Atelectasis was included in the signed 09/02 CXR .
Additional clinical indicators in the chart include:
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
Incentive Spirometer ordered/encouraged/Pt requiring higher amounts of oxygen with noted SOB
Please indicate in your progress notes if you are in agreement that the above diagnosis is valid for this patient:
-Atelectasis is a valid diagnosis
--- NOTE | 2023-09-08 11:22 | W.PN.NEPH.PH ---
Today's Communication / Plan
-
- no lasix
- stop sodium bicarb
Assessment/Plan
-
Assessment:
SUAD on CKD
Livedo reticularis
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
Mild anemia
Plan:
follow BMP
leave BP goal 140-160 SBP
hold PO bicarb as this could be contributing to her volume issues
no further lasix, if she is being discharged can give her 1-2 doses as PRN
-
-
Date of Service: September 08, 2023
CC / HPI / ROS
-
Chief Complaint:
SUAD
History of Present Illness:
SUAD/Cr down to 1.8
CTA CAP 09/02
BP stable
WBC down 15
lasix IV this morning for SOB
Review of Systems:
no CP/SOB
hand edema better
Labs
-
Labs:
WBC 15.2 10^3/uL (4.8-10.8) H 09/08/23 05:32
RBC 2.94 10^6/uL (4.20-5.40) L 09/08/23 05:32
Hgb 9.1 g/dL (12.0-16.0) L 09/08/23 05:32
Hct 26.7 % (37.0-47.0) L 09/08/23 05:32
Plt Count 368 10^3/uL (130-400) 09/08/23 05:32
Sodium 135 mmol/L (135-145) 09/08/23 05:32
Potassium 3.7 mmol/L (3.5-5.1) 09/08/23 05:32
Chloride 100 mmol/L (98-107) 09/08/23 05:32
Carbon Dioxide 29 mmol/L (22-30) 09/08/23 05:32
BUN 38 mg/dl (7-17) H 09/08/23 05:32
Creatinine 1.8 mg/dL (0.6-1.0) H 09/08/23 05:32
eGFR 31.27 09/08/23 05:32
Glucose 118 mg/dl (70-99) H 09/08/23 05:32
Calcium 8.6 mg/dl (8.4-10.2) 09/08/23 05:32
Gxm-A-Dualtihxxws Pept 31427 pg/ml 09/08/23 05:32
Physical Exam
-
Vital Signs:
Vital Signs
Temp Pulse Resp BP Pulse Ox
98.4 F 81 16 151/77 93
09/08/23 04:00 09/08/23 10:00 09/08/23 08:00 09/08/23 08:30 09/08/23 08:28
Cardiovascular:: Regular rate and rhythm
Respiratory:: Bilateral: Coarse
Lung Excursion:: Normal
Abdomen:: Nontender and Soft
Bowel Sounds:: Normal
Extremity Edema:: None: Bilateral:
Portillo Catheter: No
[2023-09-08] MEDS: LASIX 40 MG IV (13:02)
[2023-09-08] MEDS: MUCINEX 600 MG PO (13:03)
--- NOTE | 2023-09-08 13:11 | CM ---
CM following re: discharge planning.
Reviewed pt's chart, met with pt and pt's at bedside.
Per Vascular surgery, pt is medically stable to be discharged today. Both pt and her are aware.
PT and OT evaluations noted - home PT recommended. CM discussed it with the pt and her , they expressed their agreement. A list of [facility] vendors provided, [facility] preferred. A referral to VN made.
Per pt's request, information regarding applying for SSD provided and both pt and her expressed their understanding.
Please fax discharge instructions to [facility] at [phone]
D/c plan: home with [facility] and family support. to transport.
--- NOTE | 2023-09-08 16:23 | W.DS.TRANS ---
DC Summary - Food Aide
-
Discharge Instructions:
Discharge Diagnosis/Procedures Arterial disease, Aortoiliac stent grafting with
Endologix AFX device
Diet As tolerated,Low Cholesterol
Activity No strenuous activity
Additional Activity No strenuous activity until your follow-up
Driving Restrictions No driving for 1 week
Bathing Restrictions OK to Shower
Instructions:
Stand-Alone Forms: DC Instr - Vascular OR
Changes to Home Medications: Yes
Discharge Medications:
DC Medications w/original date entered in [employer]
alprazolam 0.25 mg tablet 0.25 mg PO BID PRN anxiety 04/03/23
aspirin 81 mg capsule 81 mg PO DAILY Blood Clot Prevention/Tx 04/03/23
atorvastatin 80 mg tablet 80 mg PO DAILY High Cholesterol 04/03/23
cholecalciferol (vitamin D3) 50 mcg (2,000 unit) tablet (Vitamin D3) 50 mcg PO DAILY Supplement 04/03/23
diltiazem HCl 180 mg capsule,extended release 24 hr (Cardizem CD) 180 mg PO HS Heart Disease/Condition 04/03/23
duloxetine 30 mg capsule,delayed release 30 mg PO HS Mental Health/Anxiety 04/03/23
levothyroxine 100 mcg tablet 100 mcg PO DAILY Thyroid 04/03/23
sodium bicarbonate 325 mg tablet 650 mg PO BID Electrolyte Repletion 08/25/23
apixaban 5 mg tablet (Eliquis) 5 mg PO BID #180 tabs 09/04/23
hydralazine 25 mg tablet 25 mg PO BID #60 tabs 09/04/23
albuterol sulfate 90 mcg/actuation aerosol inhaler (ProAir HFA) 2 puff inhalation Q6H PRN sob 09/08/23
cefdinir 300 mg capsule 300 mg PO BID #5 caps 09/08/23
furosemide 40 mg tablet (Lasix) 40 mg PO BID #3 tabs 09/08/23
gabapentin 300 mg capsule 300 mg PO BID #60 caps 09/08/23
potassium chloride 20 mEq tablet,extended release(part/cryst) 40 meq (2 x 20 mEq) PO DAILY 2 days #4 tabs 09/08/23
tiotropium 2.5 mcg-olodaterol 2.5 mcg/actuation mist for inhalation (Stiolto Respimat) 2 puff inhalation Q24H #4 grams 09/08/23
Home Medication Changes
Stopped Anoro Ellipta inhaler and Plavix 75 mg p.o. daily
Added:
apixaban 5 mg tablet (Eliquis) 5 mg PO BID #180 tabs 09/04/23
hydralazine 25 mg tablet 25 mg PO BID #60 tabs 09/04/23
albuterol sulfate 90 mcg/actuation aerosol inhaler (ProAir HFA) 2 puff inhalation Q6H PRN sob 09/08/23
cefdinir 300 mg capsule 300 mg PO BID #5 caps 09/08/23
furosemide 40 mg tablet (Lasix) 40 mg PO BID #3 tabs 09/08/23
gabapentin 300 mg capsule 300 mg PO BID #60 caps 09/08/23
potassium chloride 20 mEq tablet,extended release(part/cryst) 40 meq (2 x 20 mEq) PO DAILY 2 days #4 tabs 09/08/23
tiotropium 2.5 mcg-olodaterol 2.5 mcg/actuation mist for inhalation (Stiolto Respimat) 2 puff inhalation Q24H #4 grams 09/08/23
Held:
sodium bicarbonate 325 mg tablet 650 mg PO BID Electrolyte Repletion 08/25/23
Pending Results: No
[2023-09-08] MEDS: KCL 40 MEQ PO (16:39)
--- NOTE | 2023-09-09 10:23 | VNURNOTE ---
Home Health Liaison spoke with patient at 1000 to discuss [facility] nurse/therapy, visits, schedule and homebound status. Patient is agreeable and understands that visits at home will be 2-3 x per week to assess and teach medical management.
Patient is aware that [facility] will contact her for start of care in 1-2 days after discharge from .
[facility] referral completed in [facility].
[2023-09-10 00:02] LABS: Complement C3 131 mg/dl (88-165)
== END 2023-09-08 18:00 | disposition home health service (06) | DRG 268 ==
LOC: ICU 08:53
PROVIDERS: Internal Medicine Critical Care Medicine; Nurse Practitioner; Nurse Practitioner Acute Care; Specialist; ADMITTING PHYSICIAN Surgery Vascular Surgery; CONSULT PHYSICIAN Internal Medicine; CONSULT PHYSICIAN Internal Medicine Cardiovascular Disease; CONSULT PHYSICIAN Student in an Organized Health Care Education/Training Program; FAMILY PHYSICIAN Internal Medicine
PROC: 04V03DZ Restriction of Abdominal Aorta with Intraluminal Device, Percutaneous Approach (ICD-10-PCS; 2023-09-01)
DX: I70.0 Atherosclerosis of aorta (principal); I50.33 Acute on chronic diastolic (congestive) heart failure; J96.01 Acute respiratory failure with hypoxia; I13.0 Hypertensive heart and chronic kidney disease with heart failure and stage 1 through stage 4 chronic kidney disease, or unspecified chronic kidney disease; N17.9 Acute kidney failure, unspecified; D62 Acute posthemorrhagic anemia; J98.11 Atelectasis; I5A Non-ischemic myocardial injury (non-traumatic); I70.201 Unspecified atherosclerosis of native arteries of extremities, right leg; I25.10 Atherosclerotic heart disease of native coronary artery without angina pectoris; J44.9 Chronic obstructive pulmonary disease, unspecified; F17.210 Nicotine dependence, cigarettes, uncomplicated; E03.9 Hypothyroidism, unspecified; N18.32 Chronic kidney disease, stage 3b; E78.2 Mixed hyperlipidemia; R23.1 Pallor; Z79.02 Long term (current) use of antithrombotics/antiplatelets; Z79.82 Long term (current) use of aspirin; Z79.899 Other long term (current) drug therapy; Z85.43 Personal history of malignant neoplasm of ovary; Z86.73 Personal history of transient ischemic attack (TIA), and cerebral infarction without residual deficits
CPT/HCPCS: 34705; 36415; 70450; 70490; 71045; 71275; 74174; 80048; 80061; 81003; 81015; 83735; 83880; 84484; 85025; 85027; 85610; 85730; 86160; 86850; 86900; 86901; 87040; 87070; 87205; 87449; 87641; 87899; 93005; 93306; 94640; 97116; 97163; 99406; C1725; C1760; C1769; C1773; C1894; C2628; Q9967

== ENCOUNTER → 2023-09-18 08:04 | Outpatient (REF) | payer OTHER, SELFPAY | LOC: RAD 08:04 | PROVIDERS: ATTENDING PHYSICIAN Nurse Practitioner Adult Health; FAMILY PHYSICIAN Surgery Vascular Surgery | DX: J44.9 Chronic obstructive pulmonary disease, unspecified (principal) | CPT/HCPCS: 71046 ==

== ENCOUNTER 2023-09-21 18:32 | Inpatient (IN) | payer OTHER, SELFPAY ==
[2023-09-21] VITALS (11 sets, daily range): BP systolic 110–162; BP diastolic 62–92; BMI 22.7
[2023-09-21 14:16] LABS: % Basophils 0.7 % (0-2); % Immature Granulocytes 0.5 % (0-0.5); % Lymphocytes 15.1 % (20.5-51.1); % Neutrophils 71.7 % (42.2-75.2); Absolute Basophils 0.1 10^3/uL (0-0.2); Absolute Eosinophils 0.7 10^3/uL (0-0.7); Absolute Immature Granulocytes 0.1 10^3/uL (0-0.05); Absolute Lymphocytes 2.2 10^3/uL (1.2-3.4); Absolute Neutrophils 10.3 10^3/uL (1.4-6.5); Hematocrit 26.9 % (37.0-47.0); Mean Corp Hgb Conc. 33.5 g/dL (33.0-37.0); Mean Corpuscular Hgb 30.1 pg (27.0-31.0); Mean Platelet Volume 10.1 fL (7.4-10.4); Nucleated Red Blood Cells % 0 %; Platelet Count 509 10^3/uL (130-400); Red Blood Cell Count 2.99 10^6/uL (4.20-5.40); Red Cell Dist. Width 13.5 % (11.5-14.5); White Blood Cell Count 14.3 10^3/uL (4.8-10.8)
[2023-09-21 14:52] LABS: Troponin I 0.215 ng/ml
[2023-09-21 15:01] LABS: ALT (SGPT) 17 U/L (0-35); AST (SGOT) 22 U/L (14-36); Albumin 3.7 g/dl (3.5-5.0); Alkaline Phosphatase 82 U/L (38-126); Blood Urea Nitrogen 25 mg/dl (7-17); Calcium 9.4 mg/dl (8.4-10.2); Carbon Dioxide 22 mmol/L (22-30); Chloride 100 mmol/L (98-107); Glucose 123 mg/dl (70-99); Potassium 3.4 mmol/L (3.5-5.1); Sodium 135 mmol/L (135-145); Total Bilirubin 0.7 mg/dl (0.2-1.3); Total Protein 6.7 g/dl (6.3-8.2); eGFR 27.55
--- NOTE | 2023-09-21 15:04 | ED.GENMED ---
History of Present Illness
General
Chief Complaint: Breathing Problem
Source: patient and spouse
Exam Limitations: none
Time Seen by Provider: 09/21/23 15:03
Nursing documentation reviewed up to this point in time: agreed with
Travel History
Have you had any contact with someone who has COVID-19?: No
Do you have any symptoms of coronavirus? Fever > 100 degrees, chills, cough, shortness of breath, sore throat, loss of taste or smell, muscle aches, or headache?: No
History of Present Illness
History of Present Illness:
63-year-old female presents emergency department complaining of shortness of breath and chest tightness since yesterday. She is a history of CAD, and recently had an aortic stent placed. She took Eliquis this morning.
Past History
Past History
ED Past Medical History: CAD, Cancer (ovarian ca, vulvular ca, basal cell ca), COPD and CVA
ED Past Surgical History: Brain and Other (aortic stent August 2023)
Social History
Tobacco: Former smoker
Personal:
Living: with family
Review of Systems
Review of Systems
Allergies reviewed?: Yes
All Other Systems: Not applicable
Constitutional: Reports no symptoms
EENT: Reports no symptoms
Respiratory: Reports trouble breathing
Cardiac: Reports chest pain
ABD/GI: Reports no symptoms
: Reports no symptoms
Musculoskeletal: Reports no symptoms
Skin: Reports no symptoms
Neurological: Reports no symptoms
Endocrine: Reports no symptoms
Hematologic/Lymphatic: Reports no symptoms
Psychiatric: Reports no symptoms
Phy Exam
Physical Exam
Physical Exam:
Physical Exam
General: Afebrile
Neck: supple. no meningeal signs. normal posterior pharynx
Heart: s1/s2 regular rate and rhythm, no murmur. equal radial
pulses.
HEENT: Pupils equal round reactive to light, EOMI
Lungs: Decreased breath sounds at bases bilaterally
Abdomen: normal bowel sounds. not tender. no CVAT
Neuro: alert and oriented. no focal neurological deficits cranial nerves II through XII intact
Skin: no rash
Psychiatric: well kept. interactive and cooperative
Extremities: no edema. no calf tenderness. negative homans. good distal pulses on left foot
Scores
Heart Failure Risk
Heart Failure Risk Score: Yes
History of Stroke or TIA: Yes
History of intubation for respiratory distress: No
Heart rate on ED arrival >/= 110: No
SaO2 <90% on arrival on room air: Yes
HR >/=110 during 3min walk test (or too ill to perform test): No
ECG has acute ischemic changes: No
Urea >/=12mmol/L (BUN 33.6mg/dL): No
Serum CO2>/=35mmol/L: No
Troponin I or T elevated to MT Level (0.4mg/dL): No
NT-proBNP >/=5,000ng/L (5,000pg/ml): Yes
HF Risk Score: 3
Admission Status: HIGH RISK 15.9% Consider SNF treatment or admission to hospital
Heart Score for Chest Pain Patients
STEMI patient?: No
History: Highly Suspicious
ECG: Nonspecific Repolarization
Age: >45 - <65 years
Risk Factors: >/= 3 Risk Factors or History of CAD
Troponin: >/= 3 x Normal Limit
Heart Score for Chest Pain Patients: 8
Heart Score Risk: 72.7 % MACE over next 6 weeks
Course
Orders/Labs/Results
Orders:
Orders
09/21/23 Breakfast
NPO
Allow oral meds: Yes
Allow clear liquids: No
09/21/23 13:53
Electrocardiogram (*1) Urgent
Reason for Study: Shortness of Breath
09/21/23 13:54
EKG- Treatment ONCE
09/21/23 14:07
Complete Blood Count/With Diff Urgent
Comprehensive Metabolic Panel Urgent
NT-proBNP Urgent
Comment: ADD ON
Troponin I Urgent
09/21/23 15:12
IV Insert/Care/Rem.- Treatment PRN
09/21/23 15:14
Add On- LAB Urgent
Tests Added?: pro bnp
09/21/23 15:32
Nitroglycerin Sublingual [Nitrostat (Sublingual)] 0.4 mg .ROUTE .STK-MED ONE
09/21/23 15:53
Aspirin Chewable [Low Strength Aspirin] 324 mg PO NOW STA
09/21/23 16:18
Heparin 1000 Units/500 ml [Heparin] 1,000 units in 500 ml .ROUTE .STK-MED
Heparin Sodium,Porcine/Ns/Pf [Heparin 2000 Units/1000 ml] 2,000 unit in 1,000 ml .ROUTE .STK-MED
Lidocaine HCl/Pf [Xylocaine-Mpf 1% Vial] 50 mg .ROUTE .STK-MED ONE
Nitroglycerin [Tridil] 1,500 mcg .ROUTE .STK-MED ONE
Verapamil Injectable [Isoptin/Verapamil Injection] 5 mg .ROUTE .STK-MED ONE
09/21/23 16:23
Fentanyl Citrate/Pf [Sublimaze] See Dose Instructions .ROUTE .STK-MED ONE
Heparin 10,000 units .ROUTE .STK-MED ONE
Midazolam HCl [Versed] 2 mg .ROUTE .STK-MED ONE
09/21/23 16:30
Lorazepam [Ativan] 1 mg IV NOW STA
Lorazepam [Ativan] 2 mg .ROUTE .STK-MED ONE
09/21/23 16:34
Potassium Chloride [KCl] 40 meq PO NOW STA
09/21/23 16:43
Admit/Transfer Patient As Directed
Co-Sign Provider:
Level of Care: Inpatient admission
Assign to:: IVU
Physician / Group: landen pablo
Diagnosis: chest pain
Reason for Hospitalization: chest pain
Expected length of stay greater than two midnights?: Yes
ELOS- Estimated Length of Stay in days: 3
I certify the patient meets the requirements for IP care: Yes
09/21/23 16:44
Code Status As Directed
Resuscitation Status: Full Code
09/21/23 16:53
Lidocaine HCl/Pf [Xylocaine-Mpf 1% Vial] 50 mg .ROUTE .STK-MED ONE
09/21/23 17:12
Nicardipine 40 mg/200 ml [Cardene] 40 mg in 200 ml .ROUTE .STK-MED
09/21/23 17:15
Furosemide [Lasix] 80 mg .ROUTE .STK-MED ONE
09/21/23 17:16
Morphine Sulfate 2 mg .ROUTE .STK-MED ONE
09/21/23 17:35
Fentanyl Citrate/Pf [Sublimaze] 100 mcg .ROUTE .STK-MED ONE
09/21/23 17:38
Lidocaine HCl/Pf [Xylocaine-Mpf 1% Vial] 50 mg .ROUTE .STK-MED ONE
09/21/23 17:45
Midazolam HCl [Versed] 2 mg .ROUTE .STK-MED ONE
09/21/23 17:46
Shotgun Shell Assembly Machine Adjuster Procedure As Directed
Cardiac Cath Procedure: cardiac catheterization
Notify MD As Directed
Notify physician if: immediately for chest pain or bleeding from access site(s)
Site Checks As Directed
Check access site for bleeding/hematoma: Yes
Comment: on arrival, Q15min x4, Q30min x2, Q1 hr x2, Q2 hr x2, Q4 hr or per
protocol
Vascular Checks As Directed
Location: distal to access site - pulse check
Frequency: Other
Comment: on arrival, Q15min x4, Q30min x2, Q1 hr x2, Q2 hr x2, Q4 hr or per protocol
Venous Sheath As Directed
Comment: R IJ
Vital Signs As Directed
Frequency: Other
Additional Instructions:: on arrival, Q15min x4, Q30min x2, Q1 hr x2, Q2 hr x2, then Q4 hr or per unit
protocol
09/21/23 17:47
Pulmonary Artery Catheter\\[place] As Directed
09/21/23 17:57
Arterial Line As Directed
09/21/23 18:00
0.9% Sodium Chloride 1000 ml [Nss] 1,000 ml IV 100 mls/hr
0.9% Sodium Chloride 500 ml [Nss] 500 ml IV 30 mls/hr
Nicardipine 40 mg/200 ml [Cardene] 40 mg in 200 ml IV PER PROTOCOL
Currently infusing. Continue current dose and titrate:: Yes
Titrate to keep:: SBP 140 - 160 mmHg
Titrate by mg/hr:: 2.5 mg/hr
Frequency of titrations (minutes):: 5-15 minutes
Maximum dose in mg/hr:: 15
Begin to taper infusion when:: Remained at goal for 2hrs
Taper by mg/hr:: 2.5 mg/hr
Frequency of taper (minutes) if patient maintains goal:: every 15-30 minutes
Taper to off?: Yes
If infusion off & no longer maintaining goal:: Contact Provider
09/21/23 18:03
[place] Catheter [Catheter- Indwelling] As Directed
Reason for insertion: I&O's Critical Care
Assess insertion reason daily.Remove if no longer applicable: Yes
09/21/23 18:05
Heparin Protocol- PTT Orders As Directed
PTT per Heparin protocol: -Obtain CBC and baseline PTT - if not already collected.
-Obtain PTT 6 hours from start of infusion. Then, every 6 hours until 2 consecutive
PTT's are therapeutic. Then, PTT Daily.
-With each rate change, obtain PTT every 6 hours until 2 consecutive PTT's are
therapeutic. Then, PTT Daily.
Notify MD As Directed
Notify physician if: PTT is greater than or equal to 200.
09/21/23 18:15
Heparin 65992 Units/250 ml 25,000 units in 250 ml IV PER PROTOCOL
Weight to be used for heparin protocol in kilograms (kg):: 68
Protocol:: Cardiac Tx/Acute Coronary
PTT Goal Range to be used:: PTT 73 to 111 seconds
Order type:: Initial
INITIAL Infusion Dose (UNITS/KG/hr) & then follow protocol:: 12 units/kg/hr
Infusion Dose in UNITS/hr & then follow protocol (UNITS/hr):: 800
INFUSION RATE in mL/hr & then follow protocol (mL/hr):: 8
PTT less than or equal to 64 seconds:: Increase rate by 200 units/hr (+ 2 mL/hr)
PTT 64.1 to 72.9 seconds:: Increase rate by 100 units/hr (+ 1 mL/hr)
PTT 73 to 111 seconds:: Target Range. No change in rate.
PTT 111.1 to 130.9 seconds:: Decrease rate by 100 units/hr (- 1 mL/hr)
PTT 131 to 199.9 seconds:: HOLD for 1 hr. Then decrease rate by 200 units/hr (- 2 mL/hr)
PTT greater than or equal to 200 seconds:: HOLD for 2 hrs & Notify Provider. Then decrease by 200 units/hr (-
2 mL/hr)
Lab follow-up:: Each change, PTT q6h until 2 consecutive are therapeutic. Then PTT
daily.
09/21/23 18:51
Alprazolam [Xanax] 0.25 mg PO BIDPRN PRN
Gabapentin [Neurontin] 300 mg PO BIDPRN PRN
Ipratropium/Albuterol Sulfate [Duoneb] 3 ml INH R Q4HPRN PRN
09/21/23 18:51
CARDIOLOGY CONSULT Routine
Consulting Provider: Janie Martinez
Was physician already notified: Yes
NEPHROLOGY CONSULT Routine
Consulting Provider: Shorty Angeles V.
Was physician already notified: Yes
Vascular Surgery Consult Routine
Consulting Provider: Konrad Brooks
Was physician already notified: Yes
Activity As Directed
Activity Level: As Tolerated
INT (Intravenous Needle Therapy) As Directed
Comment: maintain peripheral IV access
Intake/ Output As Directed
Frequency: Per unit guidelines
Vital Signs As Directed
Frequency: q4h
Weight As Directed
Frequency: Daily
Weight As Directed
Frequency: Daily
Pt Eval And Treat Routine
Activity Level: As Tolerated
09/21/23 19:10
Complete Blood Count/No Diff Urgent
Comment: Obtain baseline before beginning heparin infusion if not already collected
Glycohemoglobin (HgbA1c) Routine
Magnesium Urgent
PTT Urgent
Comment: Obtain baseline before beginning heparin infusion if not already collected
Phosphorus Urgent
Prothrombin Time Urgent
Troponin I Q3H
Comment: at admit & Q3H for 3 total including ED draws, obtain ECG with each level
09/21/23 20:00
EKG [Electrocardiogram (*1)] Routine
Reason for Study: Chest Pain
09/21/23 22:00
Duloxetine Delayed Release [Cymbalta Delayed Release] 30 mg PO HS
09/22/23 06:00
EKG [Electrocardiogram (*1)] IN AM
Reason for Study: Chest Pain
Basic Metabolic Panel IN AM
Basic Metabolic Panel IN AM
Cardiovascular Evaluation IN AM
Cardiovascular Evaluation IN AM
Complete Blood Count/No Diff IN AM
Complete Blood Count/No Diff IN AM
Levothyroxine [Synthroid] 100 mcg PO DAILY@0600
09/22/23 08:00
Aspirin Chewable [Low Strength Aspirin] 81 mg PO DAILY
09/23/23 06:00
Basic Metabolic Panel IN AM
Complete Blood Count/No Diff IN AM
Complete Blood Count/No Diff Q2D
Comment: Notify MD if platelet count is <130,000 or decreases by 50% from baseline
09/24/23 06:00
Basic Metabolic Panel IN AM
Complete Blood Count/No Diff IN AM
09/25/23 06:00
Basic Metabolic Panel IN AM
Complete Blood Count/No Diff IN AM
Complete Blood Count/No Diff Q2D
Comment: Notify MD if platelet count is <130,000 or decreases by 50% from baseline
09/26/23 06:00
Basic Metabolic Panel IN AM
09/27/23 06:00
Complete Blood Count/No Diff Q2D
Comment: Notify MD if platelet count is <130,000 or decreases by 50% from baseline
09/29/23 06:00
Complete Blood Count/No Diff Q2D
Comment: Notify MD if platelet count is <130,000 or decreases by 50% from baseline
10/01/23 06:00
Complete Blood Count/No Diff Q2D
Comment: Notify MD if platelet count is <130,000 or decreases by 50% from baseline
10/03/23 06:00
Complete Blood Count/No Diff Q2D
Comment: Notify MD if platelet count is <130,000 or decreases by 50% from baseline
10/05/23 06:00
Complete Blood Count/No Diff Q2D
Comment: Notify MD if platelet count is <130,000 or decreases by 50% from baseline
10/07/23 06:00
Complete Blood Count/No Diff Q2D
Comment: Notify MD if platelet count is <130,000 or decreases by 50% from baseline
Abnormal Lab Results
09/21/23
14:07
WBC 14.3 H 10^3/uL
(4.8-10.8)
RBC 2.99 L 10^6/uL
(4.20-5.40)
Hgb 9.0 L g/dL
(12.0-16.0)
Hct 26.9 L %
(37.0-47.0)
Plt Count 509 H 10^3/uL
(130-400)
Abs Immat Gran (auto) 0.1 H 10^3/uL
(0-0.05)
Absolute Neuts (auto) 10.3 H 10^3/uL
(1.4-6.5)
Absolute Monos (auto) 1.0 H 10^3/uL
(0.1-0.6)
Lymphocytes % 15.1 L %
(20.5-51.1)
Potassium 3.4 L mmol/L
(3.5-5.1)
BUN 25 H mg/dl
(7-17)
Creatinine 2.0 H mg/dL
(0.6-1.0)
Glucose 123 H mg/dl
(70-99)
Troponin I 0.215 H* ng/ml
09/21/23 14:07
09/21/23 14:07
Vital Signs
Initial and Last Documented VS:
Initial Vital Signs
Temp Pulse Resp BP Pulse Ox
98.2 F 86 18 158/84 94
09/21/23 13:52 09/21/23 13:52 09/21/23 13:52 09/21/23 13:52 09/21/23 13:52
Last Documented Vital Signs
Temp Pulse Resp BP Pulse Ox
97.5 F 73 12 135/86 99
09/21/23 21:53 09/21/23 22:00 09/21/23 22:00 09/21/23 22:00 09/21/23 22:00
MDM/Problems Addressed
Differential Diagnosis Includes:
Right arterial occlusion lower extremity, ACS, CHF
MDM/Problems Addressed:
63-year-old female with chest pain, shortness of breath, concerning for CHF. Difficult to find pulses in right dorsalis pedis. Discussed with Dr. Martinez who will see patient. Discussed with Dr. Broosk, and await further recommendations.
Chronic conditions affecting care: HTN, CAD, COPD, PVD and Neurological disorder
Acute Exacerbation and/or Progression of Chronic Illness: HTN, CAD, COPD, PVD and Neurological disorder
*Pulse Oximetry
Patient hypoxic: no
*EKG
Interpreted by ED Provider?: Yes
EKG Intrepretation Date: 09/21/23
EKG Intrepretation Time: 14:00
Interpretation: abnormal
Comparison EKG: changes noted
Heart Rate: 86
Rate: normal
Rhythm: sinus
[place]: normal axis
Interval: normal interval
QRS Pattern: left vent hypertrophy
Ischemia: non-specific ST changes
*[place] Interpretation
Rate: normal
Interpretation: normal
Heart Rate: 84
Rhythm: sinus
*Critical Care Note
Total Time (30-74mins, 75-104mins- exclusive of procedures): Not Applicable
ED Attending Note
-
Portions of this chart may have been created with voice recognition software.� Occasional wrong word or��sound alike� substitutions may have occurred due to the inherent limitations of voice recognition software.
Discharge Plan
Departure
Patient Disposition: Admit
Date of Disposition: 09/21/23
Time of Disposition: 16:09
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
Presentation/result/management discussed w/ accepting MD/DO: Hospitalist
Patient with high blood pressure during this ER visit?: Yes
Condition: Fair
Discharge Problem:
Unstable angina, COPD exacerbation, Peripheral vascular disease
Interventions
Interventions:
*General Assessment Last Done: 09/21/23 17:01
*Neglect/Abuse Screening Last Done: 09/21/23 17:01
ED- Fall Risk Assessment Last Done: 09/21/23 17:01
*Nursing Disposition Last Done: 09/21/23 17:01
ED- Cardiac Assessment Last Done: 09/21/23 15:16
ED- Pulmonary Assessment Last Done: 09/21/23 15:43
Discharge Date and Time
Discharge Date/Time: 09/21/23 17:02
--- NOTE | 2023-09-21 15:46 | PHANOTE ---
[facility]-Patient states she is taking diltiazem 180 mg from march, but has refilled diltiazem 240 mg for the last year. Patient also states she is taking a free sample inhaler from her dough machine operator. Unable to locate in [facility].
[2023-09-21 15:59] LABS: NT-proBNP > 27000 pg/ml
--- NOTE | 2023-09-21 16:17 | HPS.HSE ---
Addendum entered and electronically signed by Tiburcio Vasquez MD 09/21/23 16:58:
I saw and examined the patient.
The TEST FACILITY ENGINEER or PA's note was reviewed and I agree with the note.
Comment:
63-year-old female with past medical history of PAD with recent aortoiliac stent, CAD, CKD, moyamoya syndrome, hypothyroidism, hyperlipidemia, hypertension, ovarian cancer, TIA, COPD, brain bypass x 3 came to the hospital with chest pain and
shortness of breath. Elevated troponin and proBNP in ED. Chest x-ray not done. Seen by cardiology in the ED. Patient will be going for cardiac catheterization. Full dose aspirin given in ED. Further management per cardiology. Seen by vascular
surgery regarding lower extremity, no acute intervention by them. Consult nephrology. Monitor renal function.
General: uncomfortable
HEENT: Normocephalic, Anicteric and Moist Mucous Membranes
Cardiovascular: S1-S2,RRR
Respiratory: Labored respiration, crackles
GI: Soft, Non Distended, Non Tender
Neurology: AO x 3
Skin: Warm, Dry and Cyanosis (seen at tips of her toes, mainly the right foot third-fifth digits)
I spent a total of 77 minutes with the patient or on the floor. More than 50% of this time involved counseling and coordination of care.
Original Note:
Family Physician
-
Family Physician: Heri Huston
Chief Complaint
-
chest pressure
sob
History of Present Illness
63-year-old with past medical history for coronary artery disease, ovarian cancer, vulvar cancer, basal cell carcinoma COPD, CVA presented to us with shortness of breath and chest pressure worse with activity since Thursday night. Patient stated
patient stated it was intermittent. Yesterday it got progressively worse. Today she noted constant short of breath and chest pain. Short of breath and pain worse with activity. Patient stated orthopnea. Patient denied headache, dizziness,
syncopal episode. Patient denied fever, chills, congestion, cough. Patient denied abdominal pain, nausea, vomiting, diarrhea. Patient denied dysuria hematuria
Elevated Trop. Admitting for further management
Medical History
Past Medical History
Past Medical History: Reports Other
Additional Past Medical History:
Chronic leukocytosis
Hypothyroidism
stage IIIb chronic kidney disease
Peripheral artery disease
Hypertension
Hyperlipidemia
Past Surgical History: Reports Other
Additional Past Surgical History:
Appendectomy
brain bypass x 3
Hysterectomy
Appendectomy
Aortic stent graft
Social History
Tobacco: Former Smoker
Alcohol: Occasional
Drug: None
Personal:
Living: With Family
Family History
Family History: Not pertinent
Allergies / Home Medications
Allergies reflects when Allergies were last updated in [employer]
Home Medications with original date entered in [employer]
Allergy/Medication List:
Allergies
Allergy/AdvReac Type Severity Reaction Status Date / Time
No Known Allergies Allergy Verified 09/21/23 13:52
Home Medications
alprazolam 0.25 mg tablet 0.25 mg PO BIDPRN PRN anxiety 04/03/23
aspirin 81 mg capsule 81 mg PO DAILY Blood Clot Prevention/Tx 04/03/23
atorvastatin 80 mg tablet 80 mg PO DAILY High Cholesterol 04/03/23
cholecalciferol (vitamin D3) 50 mcg (2,000 unit) tablet (Vitamin D3) 50 mcg PO DAILY Supplement 04/03/23
diltiazem HCl 180 mg capsule,extended release 24 hr (Cardizem CD) 180 mg PO HS Heart Disease/Condition 04/03/23
duloxetine 30 mg capsule,delayed release 30 mg PO HS Mental Health/Anxiety 04/03/23
levothyroxine 100 mcg tablet 100 mcg PO DAILY Thyroid 04/03/23
apixaban 5 mg tablet (Eliquis) 5 mg PO BID #180 tabs 09/04/23
albuterol sulfate 90 mcg/actuation aerosol inhaler (ProAir HFA) 2 puff inhalation R Q6HPRN PRN sob 09/08/23
gabapentin 300 mg capsule 300 mg PO BIDPRN PRN nerve pain 09/21/23
Review of Systems
-
Constitutional: Reports No Symptoms
EENT: Reports No Symptoms
Respiratory: Reports Trouble Breathing
Cardiac: Reports Chest Pain
Abdomen/GI: Reports No Symptoms
: Reports No Symptoms
Musculoskeletal: Reports No Symptoms
Skin: Reports No Symptoms
Neurological: Reports No Symptoms
Endocrine: Reports No Symptoms
Hematologic/Lymphatic: Reports No Symptoms
Psych: Reports No Symptoms
Physical Exam
Vital Signs
Vital Signs
Temp Pulse Resp BP Pulse Ox
98.2 F 86 18 158/84 92
09/21/23 13:52 09/21/23 13:52 09/21/23 13:52 09/21/23 13:52 09/21/23 15:53
Physical Exam
General: Well Developed, Well Nourished and No Apparent Distress
HEENT: NormoCephalic, Moist mucous membranes and Atraumatic
Respiratory: Clear
Cardiac: S1/S2 and Regular Rhythm; No Murmur or Rub
GI: Soft, Non Tender, Non Distended and Normal Bowel Sounds; No Organomegaly
Rectal: Deferred by Provider
Musculoskeletal: No Clubbing, No Cyanosis and No Edema
Skin: Rash and Other (Bluish toes lower extremities)
Neuro: AO x 3 and Nonfocal/grossly intact
Psych: Calm
Laboratory Results
-
09/21/23 14:07
09/21/23 14:07
Laboratory Results
Total Bilirubin 0.7 mg/dl (0.2-1.3) 09/21/23 14:07
AST 22 U/L (14-36) 09/21/23 14:07
ALT 17 U/L (0-35) 09/21/23 14:07
Alkaline Phosphatase 82 U/L (38-126) 09/21/23 14:07
Troponin I 0.215 ng/ml H* 09/21/23 14:07
Data Reviewed
-
Lab Data: Labs Reviewed by me
Impression/Plan
-
# Unstable angina/sob rule out acute coronary syndrome
#hxt of CAD
-Troponin elevated 0.215
-EKG normal sinus rhythm
-Trend troponin
-Plan for cardiac cath today
-asa continued
-Cardiology following patient
# Chronic leukocytosis
-WBCs 14.3
- continue to trend
# Normocytic anemia
-Hemoglobin 9.0
-No active bleeding
-Continue to trend
# Hypokalemia/acute kidney injury on CKD stage IIIb
-Potassium 3.4m creatinine 2.0
-supplemented with oral kcl
-trend BMP
-nephro consulted
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
- bilaterally s/p diagnostic arteriogram, AFX stent graft placement, balloon angioplasty 09/01/23
-eliquis on hold. took last dose this morning.
#Livedo reticularis
-vascular following
#essential HTN
-Chronic, stable.
-management as per cardiology
#anxiety
-duloxetine continued
#hypothyroidism
-levothyroxine continued
# ex Smoker
#COPD
-not in acute exacerbation
-nebs prn for sob/wheezing
#Mixed hyperlipidemia
-statin continued
#Moyamoya syndrome, 3 surgical interventions
#DVT prophylaxis
-scd
#CODE status
-full code
[2023-09-21] MEDS: ATIVAN 1 MG IV (16:32)
[2023-09-21] MEDS: LOW STRENGTH ASPIRIN 324 MG PO (16:32)
--- NOTE | 2023-09-21 16:32 | CON.CAR ---
Addendum entered and electronically signed by Janie Martinez MD 09/21/23 18:15:
I saw and examined the patient.
The NITRATING ACID MIXER's note was reviewed and I agree with the note.
Comment: 63-year-old female with CAD with known to total occluded RCA, complex PAD with recent aortoiliac stenting in August, hypertension, CKD, [place]o disease status post multiple cerebral bypasses presents with increasing shortness of breath and
mid substernal chest pressure. This is been intermittent for the last 3D days. Currently, she has 5 out of 10 chest pain and increased work of breathing. EKG tracing shows
Normal sinus rhythm with LVH and ST depressions with T wave inversions anterolaterally that are new from prior. On exam she is in moderate distress with an elevated JVP lungs have bibasilar rales there is a regular rate and rhythm with a normal
S1-S2 extremities are cool with livedo reticularis in her legs. Initial troponin is 0.215 with a proBNP greater than 27,000, creatinine 2.0. Systolic blood pressure is 155 at the bedside. I am quite concerned about her chest pain and heart
failure. However, her moyamoya disease complicates issues as blood pressure must be kept above 140 ideally between 140 and 160 mmHg to ensure perfusion of her cerebral bypasses. Therefore, at this time would recommend urgent cardiac
catheterization to ensure no acute coronary syndrome. Hopefully, given her known total occlusion, her troponin and EKG changes could be due to heart failure. However, cannot ensure that we would be able to make her pain-free without first looking.
I explained the complicating issue of her CKD, and she understands the need for this urgent evaluation. She took her Eliquis this morning so we will proceed to cardiac catheterization. I discussed her case with Dr. Edwards who will immediately
perform the procedure. Vascular has been in to evaluate her legs. Overall this is a high risk situation.
Original Note:
Consultation
Consultation Request
Date/Time Consultation Requested: 09/21/23 1530
Date/Time Consultation Performed: 09/21/23 1545
Requesting Provider: Dr. Ramirez
Performing Provider: Beata CLAYTON for Dr. Martinez
Reason for Consultation: CP, SOB, abnormal EKG, abnormal troponin
Medical History
-
Chief Complaint: SOB, chest pressure
History of Present Illness:
63 y/o female with CAD (chronically occluded RCA), complex PAD with recent history of aorto iliac stent graft 09/01/23 (Dr. Portillo), hypertension, dyslipidemia, COPD, CKD (Dr. Cotto), Moyamoya disease with history of surgery who is here for
evaluation of SOB that started Thursday night, and worsened throughout the weekend. There is associated chest pressure that comes and goes. EKG shows new T wave inversions V4-V6 and troponin is 0.215, BNP >27,000. CXR 09/18/23: No radiographic evidence
of acute cardiopulmonary abnormality. Interval resolution of bibasilar airspace disease and small effusions. Repeat is now pending. She does have increased WOB at the time of my assessment and is on O2 by [place]. Chest pressure continues, but we cannot
give nitro or medicines that will drop her BP at this time as from a neurologic standpoint, her SBP is supposed to be between 140-160 mmHG.
Past Medical History
Past Medical History: CAD, COPD, HTN, Hypercholesterolemia, Renal Failure and Other (as above)
Social History
Personal:
Living: With Family
Family History
Family History: Reviewed & Not Pertinent
Allergies / Home Medications
Allergy/AdvReac Type Severity Reaction Status Date / Time
No Known Allergies Allergy Verified 09/21/23 13:52
�Medication �Instructions �Recorded �Confirmed �Type
alprazolam 0.25 mg tablet 0.25 mg PO BIDPRN PRN anxiety 04/03/23 09/21/23 History
aspirin 81 mg capsule 81 mg PO DAILY Blood Clot 04/03/23 09/21/23 History
Prevention/Tx
atorvastatin 80 mg tablet 80 mg PO DAILY High Cholesterol 04/03/23 09/21/23 History
cholecalciferol (vitamin D3) 50 50 mcg PO DAILY Supplement 04/03/23 09/21/23 History
mcg (2,000 unit) tablet (Vitamin
D3)
diltiazem HCl 180 mg 180 mg PO HS Heart 04/03/23 09/21/23 History
capsule,extended release 24 hr Disease/Condition
(Cardizem CD)
duloxetine 30 mg capsule,delayed 30 mg PO HS Mental Health/Anxiety 04/03/23 09/21/23 History
release
levothyroxine 100 mcg tablet 100 mcg PO DAILY Thyroid 04/03/23 09/21/23 History
apixaban 5 mg tablet (Eliquis) 5 mg PO BID #180 tabs 09/04/23 09/21/23 Rx
albuterol sulfate 90 mcg/actuation 2 puff inhalation R Q6HPRN PRN sob 09/08/23 09/21/23 History
aerosol inhaler (ProAir HFA)
gabapentin 300 mg capsule 300 mg PO BIDPRN PRN nerve pain 09/21/23 09/21/23 History
Review of Systems
-
History Source: Patient
All other systems: Negative unless noted
Respiratory: Trouble Breathing
Cardiac: Chest Pain
Physical Exam
Vital Signs
Temp Pulse Resp BP Pulse Ox
98.2 F 86 18 158/84 92
09/21/23 13:52 09/21/23 13:52 09/21/23 13:52 09/21/23 13:52 09/21/23 15:53
Lab Results
09/21/23 14:07
09/21/23 14:07
Troponin I 0.215 ng/ml H* 09/21/23 14:07
Jfy-S-Sjzypbkfcde Pept > 47222 pg/ml 09/21/23 14:07
Physical Exam
General: Well Developed, Well Nourished and Other (increased WOB)
HEENT: Normocephalic and Anicteric
Respiratory: Crackles (b/l bases, on O2 by [place])
Cardiac: Regular Rhythm
Musculoskeletal: No Edema
Skin: Warm and Dry
Neuro: AO x 3
Psych: Calm
Impression / Plan
-
Chest pressure, SOB, abnormal troponin, abnormal EKG:
-concern for NSTEMI- this diagnosis is threat to life
-on ASA- took this AM
-plan for cardiac cath now
-also looks like some [id number] HFpEF to me, so likely to need diuresis, but cath first due to concern for ACS
-trend trops and EKG's
CAD:
-cath 04/09/23: LAD: 20% mid LAD stenosis with otherwise trivial luminal irregularities, Circumflex: Mild luminal irregularities, RCA: The RCA is proximally occluded. The distal RCA fills via collateral from the conus branch and via [id number]
collaterals
-on ASA, statin as OP
-w/u as above
CKD:
-monitor renal function closely
-Dr. Cotto is machine room operator as OP
Recent aorta/iliac revascularization for potentially atheroembolism:
-on Eliquis- last dose this AM
-Dr. Brooks saw in ER and reports vascular issues stable
COPD:
-not wheezing to assessment
Moyamoya disease with history of surgery
Data Reviewed
-
EKG: Tracing Personally Visualized and interpreted (SR with t wave inversions V4-V6)
Radiology: Report Reviewed by me (recent CXR as above- current one pending)
Medical Tests (Nuc Med, Echo etc): Report Reviewed by me (Echo 09/08/23: Normal LV size with normal systolic function. LVEF is 55% by Aguilar's method of discs.. RCA territory mild hypokinesis. Mild concentric LVH. Stage I diastolic dysfunction
suggestive of abnormal relaxation. Normal right ventricular size and function. Mild mitral regurgitation.)
Labs: Labs Reviewed by me
--- NOTE | 2023-09-21 16:33 | W.PN.UPDATE ---
Update Note
Progress Note Update
Patient known to our service status post recent aorta/iliac revascularization for potentially atheroembolism. She presents with active chest pain. Asked by emergency room staff initially regarding some concern about nonpalpable distal pulses on
right side. Patient appears slightly uncomfortable secondary to chest pain and shortness of breath. Her exam is unchanged for me compared to recent exam. Groins flat bilaterally. 2+ palpable PT pulses bilaterally. Generalized
discoloration/mottling/livedo grossly unchanged. Defer to cardiology regarding plan currently. No active issues from a vascular perspective.
--- NOTE | 2023-09-21 16:53 | W.PN.UPDATE ---
Update Note
Progress Note Update
For billing purpose only
--- NOTE | 2023-09-21 18:15 | ITS.CL.CATH ---
Business Analysis Specialist - Catheterization
Cardiac Catheterization
Procedure Report:
CARDIAC CATHETERIZATION REPORT
Date of Procedure: 09/21/2023
Referring: Aminata Martinez M.D.
Indication: Known coronary artery disease, chest pain, elevated troponin, congestive heart failure.
PROCEDURE:
1. Right heart catheterization.
2. Left heart catheterization.
3. Coronary angiography.
4. Intubation and sedation.
5. Titration of cardiac medications.
ACCESS:
6 Moroccan right radial artery.
8 Moroccan right internal jugular vein using a modified Seldinger technique with a micropuncture kit under ultrasound guidance.
CATHETERS:
1. 7.5 Moroccan [place]-Yovany.
2. 5 Moroccan JR4.
3. 5 Moroccan JL 3.5.
HEMODYNAMIC DATA
Weight (kg): 68.0
Right radial (s/d/x mmHg) 255/116/166
AO (s/d/x mmHg): 170/82/114
LV (s/x mmHg): 173/25
PCWP (a/v/x mmHg): 31/32/25
PA (s/d/x mmHg): 51/28/36
RV (s/x mmHg): 51/15
RA (a/v/x mmHg): 22/18/15
SVC SvO2 (%): 92.0
PA SvO2 (%): 80.7
SaO2 (%): 99.4
Hbg (g/dL): 8.4
MYRNA
CO (L/min): 8.33
CI (L/min/m2): 4.60
THERMODILUTION
CO (L/min): 5.73
CI (L/min/m2): 3.17
TPG (mmHg): 9
PVR (Rai Units): 1.57
SVR (dynes*seconds*cm^-5): 1382
AVO2 Diff (Volume %): 2.14
AV gradient (x, mmHg): None.
AV area (cm2): Normal.
LEFT VENTRICULOGRAPHY: Not performed.
CORONARY ANGIOGRAPHY
Dominance: Right.
Left Main: Normal size, trifurcating vessel. There is no coronary artery disease.
LAD: Normal size vessel giving rise to several small diagonals. There is no coronary artery disease.
Ramus: Moderate to large size vessel supplying the majority of the anterolateral wall. There is no coronary artery disease.
Circumflex: Normal size, nondominant vessel giving rise to several small marginals. The vessel terminates as a left posterolateral branch. There is no significant coronary artery disease.
RCA: Normal size, dominant vessel. The vessel is chronically totally occluded in its proximal margin. The RPDA and distal RCA are supplied by collaterals from the left system.
INTERVENTIONS
1. Intubation for respiratory distress.
2. Titration of sedation.
3. Titration of vasoactive cardiac medications.
Narrative:
Access was obtained for coronary angiography and left heart catheterization via the right radial artery. During this period, the patient began to become acutely dyspneic, worse than when she had originally presented. She required upright
positioning, in spite of being recumbent on a wedge. She was in visible respiratory distress. Initially, we called for BiPAP but it was clear that this was no longer going to be a feasible option. Anesthesia was paged stat for intubation to
secure the airway.
Direct measurement of the right radial artery blood pressure showed that the patient's blood pressure had climbed to greater than 240 mmHg systolic. Nicardipine drip was started at 5 mg/min and uptitrated to 10 mg/min with minimal effect. The
patient was given furosemide 80 mg IV.
Upon anesthesia's arrival, the patient was sedated and intubated. Propofol drip was started at 20 mcg/kg/min. This was uptitrated to a dose of 50 mcg/kg/min to keep the patient sedated and comfortable. We proceeded with cardiac catheterization
and coronary angiography which revealed stable coronary artery disease from her prior cardiac catheterization in late 2022. LVEDP was measured at 25 mmHg. Given the patient's rapid collapse, I thought it prudent to proceed with right heart
catheterization and Wallaceton-Yovany placement.
The right internal jugular vein was accessed using a modified Seldinger technique with a micropuncture kit under ultrasound guidance. The 8 Moroccan sheath was placed in the 7.5 Moroccan [place]on-Yovany catheter was advanced. And SVC sat was obtained,
followed by a PA sat after obtaining antegrade heart chamber pressures. The SVC sat is noted to be extremely high, 92%. Right heart catheter pressures confirmed severely elevated filling pressures. The sheath was sutured in place. Given the
questionable validity of the oxygen saturation, the decision was made to perform cardiac output via thermodilution. After performing this, Tegaderm patches were used to secure the Wall[place]-Yovany catheter.
Given the patient's history of moyamoya and mandatory permissive hypertension for her carotid artery bypasses, we thought it prudent to suture the right radial artery sheath in place. A Tegaderm was applied to maintain stability. Both catheters
will be connected to pressure transducers. Over the course of the catheterization, the patient's blood pressure fell nicely with the use of the nicardipine. This was down titrated and ultimately stopped. After completing the procedure, a Portillo
catheter was placed prior to transfer to the ICU.
Closure Device: None. The right radial artery sheath and right internal jugular sheath were sutured in place and covered with Tegaderm.
Radiation dose (mGy): 162.16
DAP (cm2.Gy): 11.8646
Fluoroscopy time (minutes): 2.6
Sedation time (minutes): 40
CONCLUSIONS:
1. Right dominant circulation with chronic total occlusion of the proximal RCA, collateralized by the left system.
2. Acute hypoxic respiratory failure requiring intubation and mechanical ventilation.
3. Hypertensive emergency.
4. Acute congestive heart failure.
5. Severely elevated filling pressures (LVEDP = 25 mmHg, PCWP = 25 mmHg at 68.0 kg).
6. Severe vasculopathy including moyamoya status post carotid artery bypass and recent aortoiliac angioplasty and stent placement.
RECOMMENDATIONS:
1. Expectant management after cardiac catheterization via right radial and right internal jugular approach.
2. Limited weight bearing on the right wrist for one week.
3. Titration of vasoactive medications to maintain a systolic blood pressure of at least 140 mmHg in order to maintain cerebral perfusion.
4. Aggressive IV diuresis.
5. Guideline directed medical therapy as hemodynamics will tolerate.
6. Echocardiogram ordered and pending.
7. Aggressive secondary prevention.
8. Hold apixaban and start heparin drip, particular given the presence of a 6 Moroccan sheath in the right radial artery.
9. We will discontinue the right radial artery sheath as soon as we are satisfied with her hemodynamic state given the size of the sheath and propensity for right radial artery thrombosis.
10. Transfer to ICU.
Copy to: Aminata Martinez M.D., Heri Huston M.D., Emile Charlton M.D.
Antonio Edwards DO, FACC, FACP
[2023-09-21] MEDS: DIPRIVAN 100 IV (19:00)
--- NOTE | 2023-09-21 19:00 | PTCARENOTE ---
Addendum entered by Kelin Sandoval RN 09/22/23 01:48:
tip of R 4th toe cyanotic
Original Note:
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
140-160, levophed gtt started at 1935 - see flow sheet for titrations, See CO, CI,- B Maurice, TYPEWRITER MECHANIC aware of results,Heoarin gtt started at 800 units at 1930 per order, 40 kcl hung over 2 hr per order, fent bolus followed by fent gtt started,unable
to obtain R rad pulse, + R brachial pulse via doppler, R hand warm, good cap refill, Dr eid notified- to cont to monitor and inform of any changes,distal pulses via doppler, no edema, yoselin varghese started for temp 95.9 per order, #7 oral ett- repos
on R side at 22 cm, ac 12, tv 450, 5 peep, 60% fio2, sat 99, lungs decr in bases, crackles in bases, + bowel sounds, no bm, abd soft/ round, npo, syed draining yellow urine, B Maurice, TYPEWRITER MECHANIC aware of critical ekg- prol QT- will repeat in am
[2023-09-21 19:16] LABS: B.E. -2.8 mmol/L; HCO3 22.6 mmol/L (21-28); Ionized Calcium 1.17 mMOL/L (1.15-1.33); O2 Saturation % 97.8 % (94-98); PCO2 41 mmHg (32-35); PO2 90 mmHg (83-108); Sodium 133 mMOL/L (136-145); pH 7.35 (7.35-7.45)
[2023-09-21 19:21] LABS: Hematocrit 23.3 % (37.0-47.0); Hemoglobin 7.9 g/dL (12.0-16.0); Mean Corp Hgb Conc. 33.9 g/dL (33.0-37.0); Mean Corpuscular Hgb 30.3 pg (27.0-31.0); Mean Corpuscular Volume 89.3 fL (81.0-99.0); Mean Platelet Volume 10.1 fL (7.4-10.4); Platelet Count 434 10^3/uL (130-400); Red Blood Cell Count 2.61 10^6/uL (4.20-5.40); Red Cell Dist. Width 13.6 % (11.5-14.5); White Blood Cell Count 19.3 10^3/uL (4.8-10.8)
[2023-09-21] MEDS: SUBLIMAZE 50 MCG IV (19:28)
[2023-09-21] MEDS: HEPARIN 25000 UNITS/250 ML IV (19:29)
[2023-09-21] MEDS: SUBLIMAZE 100 IV (19:31)
[2023-09-21] MEDS: KCL 100 IV (19:31)
[2023-09-21 19:33] LABS: Magnesium 1.8 mg/dl (1.6-2.3)
[2023-09-21 19:35] LABS: INR 2.44; PT 26.4 Sec (11.4-14.6)
[2023-09-21] MEDS: LEVOPHED 250 IV (19:35)
[2023-09-21] MEDS: NSS 500 IV (19:42)
--- NOTE | 2023-09-21 19:42 | W.PN.ANESINT ---
Anesthesia Intubation Note
- Intubation Note
Intubation Note:
Diagnosis: STEMI
Blade: MAC 4
Tube Size: 7.0
Depth: 21
Side Taped:R
Drugs Used:Propofol 100 mg, Anectine 100 mg
Grade View:1
EtCO2 Present:yes
Atraumatic:yes
Attempts: 1
Insertion Start and Stop Time:5:25
SaO2 Pre:95
SaO2 Post:97
Glidescope Used:yes
Other Airway Adjustments:
Pre-Oxygenated:yes
Portable Chest X-Ray:
RSI:
Suctioned:
Bilateral Breath Sounds Confirmed: yes
Vent Settings:
Settings per ___Attending Physician
[2023-09-21 19:57] LABS: APTT > 200 Sec (23.4-35.0)
[2023-09-21 21:06] LABS: Troponin I 0.171 ng/ml
--- NOTE | 2023-09-21 22:00 | PTCARENOTE ---
yoselin abimael off for temp 97.5
--- NOTE | 2023-09-21 23:15 | PTCARENOTE ---
see cardiac output results, PAP- 40/23, B jolene Richards aware of results, will cont to monitor
--- NOTE | 2023-09-21 23:30 | PTCARENOTE ---
fio2 decr to 50% by resp therapist
[2023-09-22] VITALS (46 sets, daily range): BP systolic 121–166; BP diastolic 63–90; PULSE 2–91; O2SAT 96; BMI 22.7
--- NOTE | 2023-09-22 | PTCARENOTE ---
sys reviewed, changes noted
--- NOTE | 2023-09-22 01:26 | PTCARENOTE ---
fio2 decr to 40% by resp therapist
[2023-09-22] MEDS: DIPRIVAN 100 IV (02:25)
[2023-09-22 04:06] LABS: Hematocrit 23.6 % (37.0-47.0); Hemoglobin 8.1 g/dL (12.0-16.0); Mean Corp Hgb Conc. 34.3 g/dL (33.0-37.0); Mean Corpuscular Hgb 30.7 pg (27.0-31.0); Mean Corpuscular Volume 89.4 fL (81.0-99.0); Mean Platelet Volume 9.9 fL (7.4-10.4); Platelet Count 416 10^3/uL (130-400); Red Blood Cell Count 2.64 10^6/uL (4.20-5.40); Red Cell Dist. Width 13.6 % (11.5-14.5); White Blood Cell Count 13.4 10^3/uL (4.8-10.8)
[2023-09-22 04:19] LABS: APTT 40.5 Sec (23.4-35.0)
[2023-09-22 04:34] LABS: Blood Urea Nitrogen 26 mg/dl (7-17); Calcium 8.7 mg/dl (8.4-10.2); Carbon Dioxide 22 mmol/L (22-30); Chloride 104 mmol/L (98-107); Estimated Creatinine Clearance 25 ml/min; Glucose 105 mg/dl (70-99); HDL Cholesterol 44 mg/dl; LDL Cholesterol, Calculated 46 mg/dl; Magnesium 1.8 mg/dl (1.6-2.3); Sodium 135 mmol/L (135-145); Total Cholesterol 118 mg/dl (50-199); Triglyceride 143 mg/dl (10-149); Very Low Density Lipoprotein 28 mg/dl (0-30); eGFR 24.58
--- NOTE | 2023-09-22 04:40 | PTCARENOTE ---
Addendum entered by Kelin Sandoval RN 09/22/23 04:42:
Ett repos on L side at 22cm
Original Note:
Lakeshia Richards NP aware of CO 3.52, CI-2, hep gtt incr to 1000 units for ptt 40.5, distal pulses palpable, R brachial pulse palpable, R hand warm, good cap refill
[2023-09-22 04:51] LABS: Troponin I 0.255 ng/ml
--- NOTE | 2023-09-22 04:55 | PTCARENOTE ---
Lakeshia Richards NP aware of urine output
[2023-09-22] MEDS: MAGNESIUM SULFATE 100 IV (05:26)
--- NOTE | 2023-09-22 05:31 | PTCARENOTE ---
1 gm mag sulfate hung over 1 hr per order
[2023-09-22] MEDS: SYNTHROID PO (05:35)
--- NOTE | 2023-09-22 08:17 | W.CON.NEPH ---
Consultation
-
Date/Time Consultation Requested: 09/22/2023 8:00 AM
Date/Time Consultation Performed: 09/22/2023 8:00 AM
Requesting Provider: Pedro
Performing Provider: Dr. Angeles
Reason for Consultation: Chronic kidney disease stage 4
Medical History
-
Chief Complaint: SUAD on CKD
History of Present Illness:
The patient is a 63YOF with PMH of TIA, ovarian cancer, HTN, CAD, HFpEF, CKD with recent AFX stent graft placement, balloon angioplasty. She is chronically maintained on Eliquis in the setting of her peripheral vascular disease. She is maintained
on diltiazem for her hypertension.
She isknown to our group and is a patient of Dr. Cotto. He follows her for CKD 4 with baseline creatinine of about 2. She has previously stated that she would not except dialysis. . She has a known history of totally occluded RCA and complex
peripheral arterial disease with recent aortoiliac stenting in August 2023. She has a history of moyamoya disease and is status post multiple cerebral bypasses. She presented to the hospital last evening with substernal chest pain and shortness of
breath. She immediately went to cardiac cath and was noted to have a pulmonary capillary wedge pressure of 25 but no intervention was performed. We were consulted for chronic kidney disease stage IV.
Past Medical History
TIA
ovarian cancer
HTN
CAD
HFpEF
CKD 3B
current smoker
COPD
Vulvar cancer
PAD
DLD
Moyamoya syndrome
Chronically occluded RCA
Complex PAD
Aortoiliac stent graft August 2023
Past Surgical History: Other (Appendectomy 02/1992 Hysterectomy, BSO, omentectomy 02/1992 Partial vulvectomy 2010 Brain bypass x3 Appendectomy)
Social History
Tobacco: Smoker
Alcohol: None
Drug: None
Personal:
Living: With Family
Family History
Family History: Not Pertinent
Allergies / Home Medications
Allergy/AdvReac Type Severity Reaction Status Date / Time
No Known Allergies Allergy Verified 09/21/23 13:52
�Medication �Instructions �Recorded �Confirmed �Type
alprazolam 0.25 mg tablet 0.25 mg PO BIDPRN PRN anxiety 04/03/23 09/21/23 History
aspirin 81 mg capsule 81 mg PO DAILY Blood Clot 04/03/23 09/21/23 History
Prevention/Tx
atorvastatin 80 mg tablet 80 mg PO DAILY High Cholesterol 04/03/23 09/21/23 History
cholecalciferol (vitamin D3) 50 50 mcg PO DAILY Supplement 04/03/23 09/21/23 History
mcg (2,000 unit) tablet (Vitamin
D3)
diltiazem HCl 180 mg 180 mg PO HS Heart 04/03/23 09/21/23 History
capsule,extended release 24 hr Disease/Condition
(Cardizem CD)
duloxetine 30 mg capsule,delayed 30 mg PO HS Mental Health/Anxiety 04/03/23 09/21/23 History
release
levothyroxine 100 mcg tablet 100 mcg PO DAILY Thyroid 04/03/23 09/21/23 History
apixaban 5 mg tablet (Eliquis) 5 mg PO BID #180 tabs 09/04/23 09/21/23 Rx
albuterol sulfate 90 mcg/actuation 2 puff inhalation R Q6HPRN PRN sob 09/08/23 09/21/23 History
aerosol inhaler (ProAir HFA)
gabapentin 300 mg capsule 300 mg PO BIDPRN PRN nerve pain 09/21/23 09/21/23 History
Review of Systems
-
Unable to obtain full review of systems at this time due to: Patient Intubation
History Source: Patient
All other systems: Negative unless noted
: Other (kunal)
Musculoskeletal: No Symptoms
Skin: No Symptoms
Physical Exam
Vital Signs
Vital Signs
Temp Pulse Resp BP Pulse Ox
101.3 F H 93 16 150/86 93
09/22/23 07:47 09/22/23 08:00 09/22/23 08:00 09/22/23 08:00 09/22/23 08:00
Lab Results
09/22/23 03:57
09/22/23 03:57
WBC 13.4 10^3/uL (4.8-10.8) H 09/22/23 03:57
RBC 2.64 10^6/uL (4.20-5.40) L 09/22/23 03:57
Hgb 8.1 g/dL (12.0-16.0) L 09/22/23 03:57
Hct 23.6 % (37.0-47.0) L 09/22/23 03:57
Plt Count 416 10^3/uL (130-400) H 09/22/23 03:57
Sodium 135 mmol/L (135-145) 09/22/23 03:57
Potassium 4.0 mmol/L (3.5-5.1) 09/22/23 03:57
Chloride 104 mmol/L (98-107) 09/22/23 03:57
Carbon Dioxide 22 mmol/L (22-30) 09/22/23 03:57
BUN 26 mg/dl (7-17) H 09/22/23 03:57
Creatinine 2.2 mg/dL (0.6-1.0) H 09/22/23 03:57
eGFR 24.58 09/22/23 03:57
Glucose 105 mg/dl (70-99) H 09/22/23 03:57
Calcium 8.7 mg/dl (8.4-10.2) 09/22/23 03:57
Phosphorus 5.0 mg/dl (2.5-4.5) H 09/21/23 19:10
Bih-Y-Zywpqpccpce Pept > 94998 pg/ml 09/21/23 14:07
Albumin 3.7 g/dl (3.5-5.0) 09/21/23 14:07
Physical Exam
General: Awake and alert on ventilator
HEENT: PERRL, EOMI, Anicteric, Conjunctivae Clear, Ear/Nose Intact, Hearing Normal,, no Facial Symmetry, Neck Supple, Neck: Trachea Midline, Noted JVD and No Thyromegaly, no Bruits, ET tube
Respiratory: Coarse to auscultation bilaterally with normal lung exersion
Cardiac: S1/S2 and Regular Rate/Rhythm
Breast: Deferred by me
Abdomen: Soft, Nontender, Nondistended, Normal Bowel Sounds and No Hepatosplenomegaly
Rectal: Deferred by Provider
Genito-urinary: No Costovertebral Tenderness, syed
Extremities: No Clubbing, No Cyanosis and No Edema
Skin: No Rash or open lesions
Neuro: appears intact, moves all 4 extremity
Hematologic/Lymphatic: No Cervical Lymphadenopathy, No Submandibular Lymphadenopathy and No Supraclavicular Lymphadenopathy
Psych: Awake alert follows simple command
Vascular: plus 1 radial pulses, poorly palapable pedal pulses
Data Reviewed
-
Radiology: Image Personally Visualized and interpreted (Chest x-ray personally reviewed noted bilateral interstitial pattern with small right effusion)
Medical Tests (Nuc Med, Echo etc): Other (EKG report reviewed anterior lateral T wave inversions sinus rhythm 70 beats per)
Labs: Labs Reviewed by me (BMP CBC troponin)
Old Records: Reviewed (Reviewed previous consultation from August 2023, creatinine 1.8 from 09/08/2023)
Assessment/Plan
-
Impression:
Chest pain shortness of breath: Congestive heart failure decompensation/non-ST elevation OH
Chronic kidney disease stage IV with baseline creatinine of 2
Hypertension urgency
Aorta iliac revascularization following potential atheroembolism August 2023
COPD
Moyamoya disease/complex peripheral arterial disease
Intubation
Plan:
-Kidney function remains at baseline/non oliguric
-Will initiate diuresis given volume overload as noted by pulmonary capillary wedge pressure of 25 following cardiac cath (no intervention performed), 80mg IV BID today
-bp control, currently on Cardene drip to maintain systolic blood pressures of approximately 140 or lower, eventually add back diltiazem
-Discussed plan with cardiology
-Patient is critically ill and remains intubated in the setting of likely diastolic congestive heart failure
Total Time Spent with Patient (in minutes): 45 of critical care time spent with patient
--- NOTE | 2023-09-22 08:40 | VNURNOTE ---
Patient is current with [facility] since 09/09 w/SN/PT, will monitor progress and plan at discharge.
--- NOTE | 2023-09-22 08:40 | W.PN.CD ---
Addendum entered and electronically signed by Antonio Edwards, DO 09/22/23 12:23:
Nicardipine remains on at 5 mg/hour.
Restart home diltiazem and wean nicardipine gtt.
When nicardipine is off, we will d/c arterial line.
Addendum entered and electronically signed by Antonio Edwards, DO 09/22/23 12:15:
Filling pressures are actually quite reasonable.
Maintain bumetanide for 1-2 hours then re-assess.
If her pressures are improved but she remains hypoxic/dyspneic, we should consider primary pulmonary causes (PE, COPD exacerbation).
Original Note:
Today's Communication / Plan
-
Start A-line in left radial artery.
DC right radial sheath.
TTE.
Bumetanide gtt at 0.5 mg/hour.
Nicardipine/norepinephrine to keep SBP between 140-160 mmHg.
Maintain heparin gtt.
Impression / Plan
-
Impression/Plan: 63 y/o female vasculopath with a history of CAD (RCA ORE WASHER), CKD, COPD, severe PAD with recent aortoiliac revascularization for potential atheroembolism and [place] DEX s/p bilateral carotid bypass admitted with decompensating
HFpEF and chest pressure, prompting cardiac catheterization, at which time she went into flash pulmonary edema from hypertensive crisis, requiring intubation and aggressive BP management.
#Hypoxic respiratory failure/HFpEF/flash pulmonary edema
-Acute.
-Likely due to decompensated HF + hypertensive crisis.
-PA catheter:
PAP = 38-44/22-27
RA = 7-12
CI = 2.3-2.6
SVR = 3573-4604
-Wean vent this morning.
-Restart nicardipine with goal SBP 140-160 mmHg.
-Establish A-line in left wrist and d/c right radial sheath.
-Start bumetanide gtt at 0.5 mg/hour.
#CAD/Elevated troponin
-Chronic, stable.
-Cardiac catheterization shows no new CAD.
-Troponin elevation is acute and up to 0.255, but is NOT ACS.
-Troponin elevation could be a type II event with known stable CAD (RCA ORE WASHER) and hypertensive crisis/volume overload and CKD.
#CKD
-Chronic.
-Creatinine up to 2.2 today.
-Monitor with diuresis. Role for renal artery US?
#PAD/aortic atherosclerosis
-Recent infrarenal aorta/iliac revascularization for potentially atheroembolism (AFX 25-90/16-30, 28-95 proximal extension).
-CTA post procedure comments on residual mural thrombus in descending thoracic aorta.
-Dr. Brooks saw in ER and reports vascular issues stable.
-Apixaban held. Heparin gtt started.
#COPD
-Chronic.
-ABG = 7.35/41/90 on FiO2 40%.
-Repeat ABG this morning as part of vent weaning.
#Moyamoya disease
-Chronic, stable.
-History of carotid bypass.
-Previously recommended SBP of 140-160 to maintain cerebral perfusino (source?).
Critical Care Time = 45 minutes.
Subjective/Interval History:
Weight is down 2.3 kg.
Extubated.
Hypothermic overnight, now with low grade fever (38.5).
Systemic blood pressure is high enough for perfusion, currently > 170.
DATA:
Cardiac catheterization, 09/21/2023:
CONCLUSIONS:
1. Right dominant circulation with chronic total occlusion of the proximal RCA, collateralized by the left system.
2. Acute hypoxic respiratory failure requiring intubation and mechanical ventilation.
3. Hypertensive emergency.
4. Acute congestive heart failure.
5. Severely elevated filling pressures (LVEDP = 25 mmHg, PCWP = 25 mmHg at 68.0 kg).
6. Severe vasculopathy including moyamoya status post carotid artery bypass and recent aortoiliac angioplasty and stent placement.
CTA, Chest/Abdomen/Pelvis, 09/03/2023:
IMPRESSION:
Placement of abdominal aortic and bilateral proximal common iliac artery endostent in the interval since prior study, patent.
Mural thrombus again seen along the posterior left side of the descending thoracic aorta.
Additional findings, as detailed above.
CTA Abdomen/Pelvis with runoff, 06/25/2023:
IMPRESSION:
1. Advanced aortic atherosclerotic changes without aneurysmal dilation. Irregular mural thrombus along distal thoracic and abdominal aorta. Moderate stenosis of the infrarenal aorta.
2. High-grade stenosis of the proximal right common iliac artery. Moderate stenosis left common iliac artery. Left profunda femoral stenosis. Three-vessel runoff on the right and 2 vessel runoff on the left.
3. Bilateral renal cortical scarring. Atrophic changes of the left kidney as compared with the right.
Physical Exam
Vital Signs/Labs
Vital Signs
Temp Pulse Resp BP Pulse Ox
38.5 C H 96 19 150/86 92
09/22/23 07:47 09/22/23 08:36 09/22/23 08:36 09/22/23 08:00 09/22/23 08:36
09/20/23 09/21/23 09/22/23
11:59 11:59 11:59
Actual Weight 65.7 kg
09/22/23 03:57
09/22/23 03:57
PT 26.4 Sec (11.4-14.6) H 09/21/23 19:10
INR 2.44 09/21/23 19:10
APTT 40.5 Sec (23.4-35.0) H 09/22/23 03:57
Magnesium 1.8 mg/dl (1.6-2.3) 09/22/23 03:57
Triglycerides 143 mg/dl (10-149) 09/22/23 03:57
LDL Cholesterol, Calc 46 mg/dl 09/22/23 03:57
VLDL Cholesterol, Calc 28 mg/dl (0-30) 09/22/23 03:57
HDL Cholesterol 44 mg/dl 09/22/23 03:57
09/21/23
14:07
Pwb-M-Hgjqkxbtmap Pept > 63565
LAB Results
09/21/23 09/21/23 09/21/23
14:07 19:10 21:51
Troponin I 0.215 H* 0.171 H* Cancelled
09/22/23
03:57
Troponin I 0.255 H*
Physical Exam
Constitutional: No acute distress and Comfortable
EENT: Anicteric and Moist mucous membranes
Cardiovascular: Rhythm & rate is regular, Pedal edema is absent, JVD pressure is normal, S1S2 is normal and Murmur/rub/gallop absent
Respiratory: Respiratory effort normal, Wheeze Absent, Rhonchi Absent and Crackles Present
GI: Soft, Distention absent, Flat, Non tender and Normal bowel sounds
Neuro/Psych: Other (Intubated and sedated.)
Other: Cath Site (Right radial sheath in place. Right IJ Whately-Yovany in place.)
Data Reviewed
-
Date of Service: September 22, 2023
Medical Decision Making: Reviewed Test Results, Test Interpretation and Review of Case with other Provider
EKG: Tracing Personally Visualized and interpreted and Report Reviewed by me
Echo: Ordered by me
X-Ray/CT/US/MRI/NUC/PET: Image Personally Visualized and interpreted and Report Reviewed by me
Medical Tests (PFT, Pathology etc): Image Personally Visualized and interpreted and Report Reviewed by me
Labs: Labs Reviewed by me
Old Records: Reviewed
--- NOTE | 2023-09-22 09:11 | PTCARENOTE ---
recd pt 0715 handoff in room, ETT to vent tolerating current settings, on dip/fent, awakens, nods, follows commands, aware of plan for the day. art line and PA cath zero and adeel, see printout/filed readings in JUN. No wedge per order. family
bedside at 0730. seen by Drs. Ayers, Karthik, Bandar. updated plan of care. cardene initiated per order for art sys BP elevated, see VS. placed on cp/ps wean at 0835. noted mild anxiety, pointed to throat 'hurts', 12 lead obtained. Rebecca.
Armen and Juan aware. pt reports more anxiety, comfortable at present on wean. restraints for ETT safety, heparin continues.
[2023-09-22 09:42] LABS: Glycohemoglobin (HgbA1c) 5.8 % (4.0-5.6)
[2023-09-22 10:16] LABS: B.E. -3.9 mmol/L; HCO3 20.4 mmol/L (21-28); O2 Saturation % 97.2 % (94-98); PCO2 33 mmHg (32-35); PO2 84 mmHg (83-108)
--- NOTE | 2023-09-22 10:17 | CM ---
CM following re: discharge planning.
Discussed in Rounds, reviewed pt's chart, met with pt and pt's at bedside.
Pt is a 63 year old female, admitted with primary dx of Unstable angina/sob rule out acute coronary syndrome, h/o of CAD. Per Rounds meeting pt intubated yesterday, remains intubated, short weaning trial today, continue supportive care.
Pt is well known to this CM from previous admission of last month. Per pt reports she lives with him in a 2SH, 2 steps to enter, has 2 supportive sons. 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
has no SNF history.
Per [facility] liaison, pt is active with [facility]. Pt's requested [facility] upon the discharge.
PCP: Heri Huston
Pharmacy: [facility] [place]
D/c plan: home with [facility] services and family support.
CM will follow with discharge plan updates as hospitalization progresses
[2023-09-22 10:19] LABS: O2 Therapy 40%
[2023-09-22 10:31] LABS: APTT 37.6 Sec (23.4-35.0)
--- NOTE | 2023-09-22 10:46 | PTCARENOTE ---
extubated easily at 1030, to 8 l mid flow, sats initially 90 now 95, breathing easily. reports no chest pain, previous sensations in bilat breasts, resolved.
--- NOTE | 2023-09-22 10:50 | CON.INTV ---
Consultation
Consultation Request
Date/Time Consultation Requested: 09/22/2023
Date/Time Consultation Performed: 09/22/2023
Requesting Provider: Dr. Vasquez
Performing Provider: Dr. Marcell Ayers
Reason for Consultation: Acute hypoxemic respiratory failure requiring intubation
Medical History
-
History of Present Illness:
Patient is a 63-year-old female with previous history of hypertension, CAD, PAD, COPD, status post aortic iliac stent graft placement on 09/01/2023, presented to the emergency room on 09/21/2023 complaining of shortness of breath and chest pain. She
was found to be significantly hypertensive. She was also found to have elevated troponins and proBNP in the emergency room. Chest x-ray with mild pulmonary edema. Patient underwent cardiac catheterization and no intervention was performed.
Patient developed hypoxemic respiratory failure, chest pain during the procedure, intubated. Then transferred to the critical care unit with a PA catheter in place.
Right heart catheterization showed significantly elevated filling pressures consistent with pulmonary edema/heart failure.
Currently intubated on mechanical ventilation. With sedation break, following commands. Cooperative. Not in distress.
FiO2 is 40%.
ET tube without secretions.
Not bronchospastic on exam.
Past Medical History
Past Medical History: Other (see list below)
Social History
Tobacco: Smoker
Alcohol: Occasional
Drug: None
Family History
Family History: Reviewed & Not Pertinent
Allergies / Home Medications
Allergies
Allergy/AdvReac Type Severity Reaction Status Date / Time
No Known Allergies Allergy Verified 09/21/23 13:52
Home Medications
�Medication �Instructions �Recorded �Confirmed �Last Taken �Type
alprazolam 0.25 mg tablet 0.25 mg PO BIDPRN PRN anxiety 04/03/23 09/21/23 08/31/23 20:30 History
aspirin 81 mg capsule 81 mg PO DAILY Blood Clot 04/03/23 09/21/23 09/21/23 History
Prevention/Tx
atorvastatin 80 mg tablet 80 mg PO DAILY High Cholesterol 04/03/23 09/21/23 09/21/23 History
cholecalciferol (vitamin D3) 50 50 mcg PO DAILY Supplement 04/03/23 09/21/23 09/21/23 History
mcg (2,000 unit) tablet (Vitamin
D3)
diltiazem HCl 180 mg 180 mg PO HS Heart 04/03/23 09/21/23 09/20/23 History
capsule,extended release 24 hr Disease/Condition
(Cardizem CD)
duloxetine 30 mg capsule,delayed 30 mg PO HS Mental Health/Anxiety 04/03/23 09/21/23 09/20/23 History
release
levothyroxine 100 mcg tablet 100 mcg PO DAILY Thyroid 04/03/23 09/21/23 09/21/23 History
apixaban 5 mg tablet (Eliquis) 5 mg PO BID #180 tabs 09/04/23 09/21/23 09/21/23 Rx
albuterol sulfate 90 mcg/actuation 2 puff inhalation R Q6HPRN PRN sob 09/08/23 09/21/23 Unknown History
aerosol inhaler (ProAir HFA)
gabapentin 300 mg capsule 300 mg PO BIDPRN PRN nerve pain 09/21/23 09/21/23 Unknown History
Review of Systems
-
Unable to Obtain full review of systems at this time due to: Patient Intubation
Vitals / Labs / Diagnostic Testing
Vital Signs
Temp Pulse Resp BP Pulse Ox
101.3 F H 96 17 137/66 94
09/22/23 07:47 09/22/23 10:45 09/22/23 10:45 09/22/23 10:00 09/22/23 10:45
Lab Data
09/22/23 03:57
Laboratory Results
09/21/23 09/22/23 09/22/23
19:10 03:30 03:57
PT 26.4 H
INR 2.44
APTT > 200 H* Cancelled 40.5 H
pH 7.35
pCO2 41 H
pO2 90
HCO3 22.6
O2 Delivery Level
09/22/23
10:01
PT
INR
APTT 37.6 H
pH 7.40
pCO2 33
pO2 84
HCO3 20.4 L
O2 Delivery Level 40%
Diagnostic Testing:
Physical Exam
-
HEENT: Normocephalic and Other (ET tube in place without secretion)
Cardiovascular: S1/S2
Respiratory: Non-Labored Respirations
GI: Soft and Non Distended
Neurology: Awake, Alert and No Motor Deficits
Skin: Warm
General: Respiratory Distress (n)
Assessment
-
Acute hypoxemic respiratory failure due to pulmonary edema requiring intubation and mechanical ventilation-elevated filling pressures on right heart catheterization 09/21/2023.
Acute on chronic heart failure with preserved ejection fraction/non-ST elevation myocardial infarction? Type II
Chest x-ray 09/21/2023: Reviewed showed mild cardiomegaly. Mild pulmonary vascular congestion. Small right pleural effusion.
Hypertensive urgency
Chronic anemia
Chronic leukocytosis
Conditions present prior admission:
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
COPD
Moderate obstruction with positive/significant bronchodilator response, follows Dr White
Chronic cough noted
Upper airway cough syndrome
Moderate cigarette smoker (10-19 cigs/day) with longstanding tobacco abuse with [id number] history
TIA, recurrent
Ovarian cancer diagnosed age (no chemo, RT)
Hypertension
Hypercholesterolemia
Hypothyroidism
Moyamoya disease
CAD with occluded RCA
CKD 3/4
Vulva cancer (no RT, chemotherapy)
PAD
Appendectomy 02/1992
Hysterectomy, BSO, omentectomy 02/1992
Partial vulvectomy 2009
Brain bypass x3
Appendectomy
Plan:
Hypoxemic respiratory failure on mechanical ventilation.
Pulmonary mechanics reviewed.
No significant evidence for airflow obstruction.
Peak pressure on the mid 20s.
FiO2 is 40%
Patient comfortable on current mechanical ventilation, alert and cooperative.
Spontaneous breathing trial performed by me: After 1 hour patient was hemodynamically stable, following commands and comfortable.
Extubation performed.
Patient will be using BiPAP at night and as needed. While in the hospital.
-
Acute on chronic heart failure with preserved ejection fraction
Status post right heart catheterization 09/21/2023: Results reviewed.
1. Right dominant circulation with chronic total occlusion of the proximal RCA, collateralized by the left system.
2. Acute hypoxic respiratory failure requiring intubation and mechanical ventilation.
3. Hypertensive emergency.
4. Acute congestive heart failure.
5. Severely elevated filling pressures (LVEDP = 25 mmHg, PCWP = 25 mmHg at 68.0 kg).
. Severe vasculopathy including moyamoya status post carotid artery bypass and recent aortoiliac angioplasty and stent placement.
Cardiology correspondence reviewed:
To start diuresis today
Continue to follow hemodynamics
Cardene drip to maintain hemodynamics-blood pressure should be Systolic 140 160 given moyamoya disease.
Echocardiogram is pending
Will defer antiplatelets and anticoagulation to cardiology.
-
Maintain arterial line and PA catheter per cardiology.
Will follow hemodynamics closely
-
Glycemic control: Insulin as needed.
Target blood sugar 140-180
-
Acute kidney injury on chronic kidney disease.
-
COPD without bronchospasm.
Restart outpatient medications once extubated
-
Once extubated bedside swallowing evaluation. Hopefully can advance diet.
-
Case discussed with cardiology and nephrology. Discussed with primary team as well.
-
Acute on chronic critical care statement: A total of 38 minutes of critical care time was provided for this patient today. This includes management of unstable vital signs, evaluation of the patient at bedside, reviewing the patient's pertinent
medical records including ventilator settings, arterial blood gases, radiographs, microbiology, laboratory evaluations and discussion with primary team, critical care nursing, and respiratory therapy.
Diagnostic Data
Chest X-ray: 09/07/2023-Small right and trace left pleural effusions with associated probable atelectasis, slightly progressed.
Chest X-Ray: 09/01/23- No acute cardiopulmonary process.
CT Scan: AP 06/25/23- IMPRESSION:
1. Advanced aortic atherosclerotic changes without aneurysmal dilation. Irregular mural thrombus along distal thoracic and abdominal aorta. Moderate stenosis of the infrarenal aorta.
2. High-grade stenosis of the proximal right common iliac artery. Moderate stenosis left common iliac artery. Left profunda femoral stenosis. Three-vessel runoff on the right and 2 vessel runoff on left.
3. Bilateral renal cortical scarring. Atrophic changes of the left kidney as compared with the right.
[facility] 04/09/23- CONCLUSIONS
1: Inferobasal akinesis with EF 54%
2: Single-vessel CAD (chronic total occlusion of the proximal RCA)
3. Recommend continued medical therapy with aspirin and high intensity statin
Echo 09/08/23:
Normal LV size with normal systolic function.
LVEF is 55% by Aguilar's method of discs..
RCA territory mild hypokinesis.
Mild concentric LVH.
Stage I diastolic dysfunction suggestive of abnormal relaxation.
Normal right ventricular size and function.
Mild mitral regurgitation.
Echo: 03/23/23- Normal biventricular size and systolic function without regional wall motion abnormality. Possible basal to mid inferior hypokinesis. Mild concentric left ventricular hypertrophy.
No significant valvular disease. Compared to previous echo 05/10/12, the possible basal inferior hypokinesis is new.
PFT's: 05/28/23- FVC was 2.06L or 58% predicted. FEV1 was 1.10L or 40% predicted. Ratio 53. Post FEV1 was 1.22L or 44% predicted, 11% change.
Lung volumes: TLC was 4.05L or 74% predicted. RV/TLC was 49%. Diffusion was 10.17 or 42% predicted. When adjusted for hemoglobin was unchanged.
Spirometry demonstrates severe obstruction. There was significant bronchodilator response in the FVC. Lung volumes demonstrate mild restriction. There is borderline air trapping. There is a moderate diffusion impairment.
Reports and relevant images were personally reviewed.
[2023-09-22 10:57] LABS: Hematocrit 24.4 % (37.0-47.0); Hemoglobin 8.1 g/dL (12.0-16.0)
[2023-09-22] MEDS: NSS 500 IV (11:00)
[2023-09-22] MEDS: BUMEX 50 IV (11:05)
--- NOTE | 2023-09-22 11:05 | W.PN.UPDATE ---
Update Note
Progress Note Update
Fever noted.
For now watch off antibiotics.
Perhaps mild aspiration pneumonitis.
We also monitor her central lines.
--- NOTE | 2023-09-22 11:35 | W.PN.HOSP.TC ---
Today's Communication/Plan
-
Monitor vitals
See plan
Plan for extubation today; following commands this morning
on hep and cardene gtt
echo
Follow fever curve, if continues to spike fever then will need empiric antibiotics and cultures
Diuresis
Assessment / Plan
Assessment / Plan
General: on ventillator
HEENT: ET tube
Cardiovascular: S1/S2
Respiratory: Non-Labored Respirations
GI: Soft and Non Distended
Neurology: Awake, Alert
Skin: Warm
Acute hypoxemic respiratory failure secondary pulmonary edema requiring intubation mechanical ventilation, elevated filling pressures on the catheterization
Hypertensive emergency with flash pulmonary edema
Acute on chronic congestive heart failure with preserved ejection fraction
Unclear if this was NSTEMI or type II UT
Heparin per cardiology
cardiac cath without significant CAD; does have elevated pressures
Currently on Trinity, diuresis today
Nephrology following
Vent management per public health policy analyst, plan for wean and later extubation today. Spoke with pulmonary and will likely wean to BiPAP
On Cardene drip
Due to her history of moyamoya diseas, blood pressure must be kept above 140, between 140 and 160
hxt of CAD
-EKG normal sinus rhythm
-asa continued
-Cardiology following
echo
# Chronic leukocytosis
- continue to trend
fever noted; spoke with public health policy analyst, likely aspiration pneumonitis. Will monitor off antibiotics. If continues to spike fever then will start empiric antibiotics
# Normocytic anemia
-No active bleeding
-Continue to trend
# Hypokalemia/acute kidney injury on CKD stage IIIb
Cr 2.2 today
with syed
monitor
Nephrology following
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
- bilaterally s/p diagnostic arteriogram, AFX stent graft placement, balloon angioplasty 09/01/23
-eliquis on hold. Restart when okay with cardiology
#Livedo reticularis
-vascular following; no acute issues from vascular standpoint
#essential HTN
-Chronic, stable.
-management as per cardiology
#anxiety
-duloxetine continued
#hypothyroidism
-levothyroxine continued
# ex Smoker
#COPD
-nebs prn for sob/wheezing
#Mixed hyperlipidemia
-statin continued
#Moyamoya syndrome, 3 surgical interventions
#DVT prophylaxis
-scd
#CODE status
-full code
I spent a total of 53 minutes with the patient or on the floor. More than 50% of this time involved counseling and coordination of care.
Anticipated Discharge: > 48 hours
Subjective/Interval History
-
Date of Service: September 22, 2023
intubated
Objective Data
-
Labs:
Laboratory Results
09/22/23 09/22/23 09/22/23
03:30 03:57 10:01
WBC 13.4 H
Hgb 8.1 L
Hct 23.6 L
Plt Count 416 H
APTT Cancelled 40.5 H 37.6 H
HCO3 20.4 L
Sodium 135
Potassium 4.0
Chloride 104
Carbon Dioxide 22
BUN 26 H
Creatinine 2.2 H
Glucose 105 H
Calcium 8.7
09/22/23 09/22/23
10:26 17:00
WBC
Hgb 8.1 L
Hct 24.4 L
Plt Count
APTT Pending
HCO3
Sodium
Potassium
Chloride
Carbon Dioxide
BUN
Creatinine
Glucose
Calcium
Vital Signs:
Vital Signs
Temp Pulse Resp BP Pulse Ox
101.3 F H 96 17 137/66 94
09/22/23 07:47 09/22/23 10:45 09/22/23 10:45 09/22/23 10:00 09/22/23 10:45
I&O
09/21/23 09/22/23 09/23/23
06:59 06:59 06:59
Intake Total 864.8 / 915.5 355.5 / 355.5
Output Total 780 / 780 260 / 260
Balance 84.8 / 135.5 95.5 / 95.5
[2023-09-22] MEDS: CARDENE 200 IV (12:20)
[2023-09-22] MEDS: TYLENOL 500 MG PO ×2 (12:31→19:24)
[2023-09-22] MEDS: NEURONTIN 300 MG PO (12:31)
[2023-09-22] MEDS: CARDIZEM CD 180 MG PO (12:33)
--- NOTE | 2023-09-22 12:33 | W.PN.UPDATE ---
Update Note
Progress Note Update
Patient seen and examined this morning
at bedside
Remains intubated and sedated
Feet are somewhat mottled which is consistent with her baseline
Easily palpable posterior tibial pulses bilaterally
Continue anticoagulation and antiplatelet therapy
Please reach out with questions or concerns
Tony Portillo III, MD
[facility]
[phone] ([phone])
--- NOTE | 2023-09-22 12:57 | W.PN.UPDATE ---
Update Note
Progress Note Update
Patient extubated.
No stridor on exam
On supplemental oxygen.
Patient discussed with me with her present regarding advanced directives.
She would not want to be reintubated or perform CPR in the future.
DNR will be updated at her request.
--- NOTE | 2023-09-22 16:40 | W.PN.UPDATE ---
Update Note
Progress Note Update
Patient extubated and tolerated well.
Sitting out of bed. On supplemental oxygen.
PA catheter in place, arterial line in place. Will defer to cardiology.
Will optimize COPD management-has moderate to severe airflow obstruction on latest pulmonary function testing from May 2023. Not bronchospastic on exam at the moment.
Most recent CT chest 08/2023 without significant emphysema.
Start DuoNebs 4 times daily and Pulmicort twice a day. Eventually transition to inhalers.
Once cardiac condition is optimized, if the patient continues to report shortness of breath then we can consider systemic corticosteroids. Hold for now.
--- NOTE | 2023-09-22 17:08 | PTCARENOTE ---
pt back to bed to obtain PA readings. Dr. Edwards bedside, removed R radial sheath, tolerated, TR band placed with 9 ml, heparin gtt off per MD order and will restart when TR band removed completely following protocol. in good spirits. I/O in
progress. Questions answered by Dr. Edwards re: plan, expectations, etiology. call ríos and family bedside.
--- NOTE | 2023-09-22 17:31 | PTCARENOTE ---
levophed restarted for continuing sys <140.
--- NOTE | 2023-09-22 18:33 | PTCARENOTE ---
removing air as ordered, familiy bedside, in good spirits. positioned as able for comfort.
--- NOTE | 2023-09-22 19:15 | PTCARENOTE ---
Rec'd pt sitting up in bed, when lies down has orthopnea, has chest discomfort w/ breathing as earlier today, cooperative, follows commands, Temp 101.2 core, tylenol 500mg po given,SR, to keep sbp 140-160 , presently levo at 4mic, see flow sheet for
titrations,R wrist TR band removed per protocal, no bleeding, good sensation, normal pulse, dsg applied, hep gtt restarted at 1200 units/hr per order, R IJ swan w/ good wave form, flushes well, zeroed, PAP 44/22, cvp 7, Cardiac output q4h, distal
pulses via doppler, no edema, O2 via midflow 8 liters, lungs decr in bases, crackles 1/4 up on R, occas cough, sat 98, + bowel sounds, no bm, abd soft, no n/v, hoda diet, syed draining yellow urine, bumexx gtt at 0.5mg/hr
[2023-09-22] MEDS: PULMICORT 0.5 MG INH (19:26)
--- NOTE | 2023-09-22 20:20 | PTCARENOTE ---
xanax 0.5 mg po given as requested, changed to bipap 12/5 w/ 6 liters by resp therapist
--- NOTE | 2023-09-22 20:20 | PTCARENOTE ---
xanax 0.25 mg po given as requested, changed to bipap 12/5 w/ 6 liters by resp therapist
[2023-09-22] MEDS: CYMBALTA DELAYED RELEASE 30 MG PO (20:21)
[2023-09-22] MEDS: XANAX 0.25 MG PO (20:21)
[2023-09-22] MEDS: HEPARIN 25000 UNITS/250 ML IV (21:08)
[2023-09-23] VITALS (52 sets, daily range): BP systolic 134–172; BP diastolic 66–131; PULSE 2–88; O2SAT 92–96; BMI 22.7
--- NOTE | 2023-09-23 00:09 | PTCARENOTE ---
sys reviewed, comf on bipap, see Cardiac output
[2023-09-23] MEDS: BUMEX 50 IV ×2 (01:11→16:02)
[2023-09-23 01:21] LABS: Hematocrit 21.9 % (37.0-47.0); Hemoglobin 7.5 g/dL (12.0-16.0); Mean Corp Hgb Conc. 34.2 g/dL (33.0-37.0); Mean Corpuscular Hgb 30.4 pg (27.0-31.0); Mean Corpuscular Volume 88.7 fL (81.0-99.0); Mean Platelet Volume 10.2 fL (7.4-10.4); Platelet Count 360 10^3/uL (130-400); Red Blood Cell Count 2.47 10^6/uL (4.20-5.40); Red Cell Dist. Width 13.8 % (11.5-14.5); White Blood Cell Count 18.4 10^3/uL (4.8-10.8)
[2023-09-23 01:37] LABS: APTT 147.6 Sec (23.4-35.0)
--- NOTE | 2023-09-23 01:45 | PTCARENOTE ---
hep off for 1 hr per protocal, ptt 147.6
[2023-09-23 01:50] LABS: Blood Urea Nitrogen 32 mg/dl (7-17); Calcium 8.2 mg/dl (8.4-10.2); Carbon Dioxide 22 mmol/L (22-30); Chloride 101 mmol/L (98-107); Estimated Creatinine Clearance 27 ml/min; Glucose 158 mg/dl (70-99); Potassium 3.1 mmol/L (3.5-5.1); Sodium 134 mmol/L (135-145); eGFR 25.99
[2023-09-23] MEDS: KCL 100 IV (02:09)
--- NOTE | 2023-09-23 02:09 | PTCARENOTE ---
40 kcl hung over 4 hr for K-3.1
--- NOTE | 2023-09-23 02:51 | PTCARENOTE ---
hep gtt restarted at 1000 units per protocal
--- NOTE | 2023-09-23 03:00 | PTCARENOTE ---
took Bipap off, changed to 8 liters midflow, see cardiac numbers
--- NOTE | 2023-09-23 03:30 | PTCARENOTE ---
requested to get oob to chair- 'I feel better breathing sitting up', assisted to chair w/ help of 2, assessment unch
[2023-09-23] MEDS: LEVOPHED 250 IV ×2 (03:32→23:36)
--- NOTE | 2023-09-23 04:10 | PTCARENOTE ---
anxious, 'I feel like I have trouble breathing', sat 96, xanax 0.25 mg po given
[2023-09-23] MEDS: XANAX 0.25 MG PO ×2 (04:11→20:28)
[2023-09-23] MEDS: SYNTHROID 100 MCG PO (04:11)
--- NOTE | 2023-09-23 06:13 | PTCARENOTE ---
'Much more comf in chair'
[2023-09-23] MEDS: PULMICORT 0.5 MG INH ×2 (07:52→21:06)
--- NOTE | 2023-09-23 08:00 | PTCARENOTE ---
recd pt 0700 with offgoing RN in room, restless in chair, trying to get comfortable. gtts as noted, PA not zeroed at present position but waveforms appropriate PA, CVP. syed maintained, levophed and bumex infusing, pt verbalizing anxiety about
situation, support offered. skin warm, dry, ordered breakfast. breathing easily sats mid 90s on 8 l midflow.
--- NOTE | 2023-09-23 08:05 | W.PN.HOSP.TC ---
Addendum entered and electronically signed by Farzaneh Steward MD 09/23/23 09:04:
patient is now DNR
Original Note:
Today's Communication/Plan
-
diuresis
follow up cardiology recommendations
Assessment / Plan
Assessment / Plan
63-year-old female with past medical history of PAD with recent aortoiliac stent, CAD, CKD IV, moyamoya syndrome, hypothyroidism, hyperlipidemia, hypertension, ovarian cancer, TIA, COPD, brain bypass x 3 came to the hospital with chest pain and
shortness of breath. EKG with new ST depressions. Initial troponin is 0.215 with a proBNP greater than 27,000, creatinine 2.0 (baseline). She was taken urgently to cardiac cath complicated by acute resp failure requiring intubation; shown to have
severely elevated filling pressures.
.
Acute hypoxemic respiratory failure secondary pulmonary edema requiring intubation mechanical ventilation, elevated filling pressures on the catheterization
Hypertensive emergency with flash pulmonary edema
Acute on chronic congestive heart failure with preserved ejection fraction
-cardiac cath without significant CAD;+ elevated pressures
-required intubation in laborer tin can 09/20; s/p extubation on 09/21
-continue diuresis with Bumex gtt, weight drop overnight
-Heparin per cardiology
-Due to her history of moyamoya disease, blood pressure must be kept above 140, between 140 and 160; started on levophed overnight (has nicardipine PRN SBP > 160)
-continue aspirin/statin
Hypokalemia
-repleted
# Chronic leukocytosis
Fever, likely 2/2 aspiration pneumonitis
-afebrile overnight and does not appear infected this morning - monitor
# Normocytic anemia
-No active bleeding
-Continue to trend
# Hypokalemia/acute kidney injury on CKD stage IIIb
Cr 2.2 today
with syed
monitor
Nephrology following
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
-bilaterally s/p diagnostic arteriogram, AFX stent graft placement, balloon angioplasty 09/01/23
-eliquis on hold. Restart when okay with cardiology
#Livedo reticularis
-vascular following; no acute issues from vascular standpoint
#essential HTN
-B[employer] Diltiazem
#anxiety
-duloxetine continued
#hypothyroidism
-levothyroxine continued
# ex Smoker
#COPD
-nebs prn for sob/wheezing
#Mixed hyperlipidemia
-statin continued
#Moyamoya syndrome, 3 surgical interventions
#DVT prophylaxis - Heparin gtt
#CODE status
-full code
Anticipated Discharge: > 48 hours
Subjective/Interval History
-
Date of Service: September 23, 2023
feels short of breath laying flat, better sitting up
Objective Data
-
Labs:
Laboratory Results
09/23/23 09/23/23
01:10 08:45
WBC 18.4 H
Hgb 7.5 L
Hct 21.9 L
Plt Count 360
APTT 147.6 H Pending
Sodium 134 L Pending
Potassium 3.1 L Pending
Chloride 101 Pending
Carbon Dioxide 22 Pending
BUN 32 H Pending
Creatinine 2.1 H Pending
Glucose 158 H Pending
Calcium 8.2 L Pending
Vital Signs:
Vital Signs
Temp Pulse Resp BP Pulse Ox
98.3 F 86 18 146/83 97
09/23/23 07:15 09/23/23 07:59 09/23/23 07:59 09/23/23 06:00 09/23/23 07:59
I&O
09/22/23 09/23/23 09/24/23
06:59 06:59 06:59
Intake Total 864.8 / 915.5 1474.0 / 1474.0
Output Total 780 / 780 2990 / 2990
Balance 84.8 / 135.5 -1516.0 / -1516.0
Review of Systems
-
History Source: Patient
All other systems: Reviewed and negative
Physical Exam
-
General: No Apparent Distress and Conversant
HEENT: PERRLA
Respiratory: Rales
Cardiac: Regular Rhythm and S1/S2
GI: Soft and Nontender
Musculoskeletal: No Edema
Skin: Dry; Negative Rash
Neuro: AO x 3
Psych: Calm
Data Reviewed
-
Diagnostic Radiology: Report Reviewed by me
Labs: Labs Reviewed by me
[2023-09-23] MEDS: LIPITOR 80 MG PO (08:33)
[2023-09-23] MEDS: TYLENOL 500 MG PO ×2 (08:33→14:57)
[2023-09-23] MEDS: VITAMIN D3 (cholecalciferol) 50 MCG PO (08:33)
[2023-09-23] MEDS: CARDIZEM CD 180 MG PO (08:33)
[2023-09-23] MEDS: LOW STRENGTH ASPIRIN 81 MG PO (08:33)
[2023-09-23] MEDS: NEURONTIN 300 MG PO ×2 (08:33→20:28)
--- NOTE | 2023-09-23 09:30 | CM ---
CM following re: discharge planning.
Discussed in rounds, reviewed pt's chart, met with pt and pt's at bedside. Per Rounds meeting, pt successfully extubated yesterday, uses Bi-pap at night, currently requires 8L midflow NC of O2. Pt stated she feels she will need home Oxygen
and pt was notified that pt will have all necessary DME she needs prior to discharge.
PT and PT evaluations noted - home PT vs SNF recommended. CM discussed it with pt and she stated she preferred to return back home with home PT. Pt stated she had [facility] before admission to and she preferred to have [facility] again. Pt's
supports pt's plan.
Per [facility] liaison, pt is active with [facility] and [facility] will resume VN services upon the discharge.
Please fax discharge instruction at discharge to [facility] at [phone]
D/C plan: home with [facility] and family support. to transport at discharge.
CM will follow with discharge plan updates as hospitalization progresses.
[2023-09-23 09:55] LABS: APTT 66.7 Sec (23.4-35.0)
[2023-09-23 09:58] LABS: Magnesium 1.8 mg/dl (1.6-2.3)
[2023-09-23 09:59] LABS: Iron < 20 ug/dl (37-170)
[2023-09-23 10:07] LABS: Total Iron Binding Capacity 244 ug/dl (265-497)
--- NOTE | 2023-09-23 10:07 | W.PN.NEPH.PH ---
Today's Communication / Plan
-
cont diuresis and replace k
follow labs later
add IV fe
Assessment/Plan
-
Impression:
Chest pain shortness of breath: Congestive heart failure decompensation/non-ST elevation HI
Chronic kidney disease stage IV with baseline creatinine of 2
Hypertension urgency
Aorta iliac revascularization following potential atheroembolism August 2023
COPD
Moyamoya disease/complex peripheral arterial disease
Intubation
Plan:
-Kidney function remains at baseline/non oliguric
-cotn diuresis with bumex per cards
noted volume overload pulmonary capillary wedge pressure of 25 following cardiac cath (no intervention performed) at wt of 65.7kg
wt no change though net neg balance, replace k, recheck labs later today
Titrate levo to maintain systolic blood pressures of approximately 140-160, off nicardipine, h/o moyamoya disease
Fe def noted with Fe sat only 8%, start IV iron, prn transfusion hb 7.5-decreasing
follow labs
d/w ICU and nursing
d/w pt and family
-
-
Date of Service: September 23, 2023
CC / HPI / ROS
-
Chief Complaint:
CKD
History of Present Illness:
cr stable at baseline 2.1
non oliguric with bumex gtt, faoly in place
wt no change but net neg balance 1.6lit
BP stable off nicardipine, remains on levo at 4
low grade fever last night
s/p extubation 09/21 on mid flow O2 8lit
hb low 7.5
Review of Systems:
sob better when leaning forward
no cp, or n/v
Labs
-
Labs:
WBC 18.4 10^3/uL (4.8-10.8) H 09/23/23 01:10
RBC 2.47 10^6/uL (4.20-5.40) L 09/23/23 01:10
Hgb 7.5 g/dL (12.0-16.0) L 09/23/23 01:10
Hct 21.9 % (37.0-47.0) L 09/23/23 01:10
Plt Count 360 10^3/uL (130-400) 09/23/23 01:10
eGFR 25.99 09/23/23 01:10
Phosphorus 5.0 mg/dl (2.5-4.5) H 09/21/23 19:10
Rxy-X-Elfqezokhwd Pept > 79723 pg/ml 09/21/23 14:07
Albumin 3.7 g/dl (3.5-5.0) 09/21/23 14:07
Physical Exam
-
Vital Signs:
Vital Signs
Temp Pulse Resp BP Pulse Ox
98.3 F 84 22 146/77 95
09/23/23 07:15 09/23/23 09:45 09/23/23 09:45 09/23/23 09:20 09/23/23 08:30
Cardiovascular:: Regular rate and rhythm
Lung Excursion:: Abnormal (decreased bilat)
Abdomen:: Nontender and Soft
Extremity Edema:: None: Bilateral:
Portillo Catheter: Yes
[2023-09-23 10:24] LABS: Blood Urea Nitrogen 32 mg/dl (7-17); Calcium 8.4 mg/dl (8.4-10.2); Carbon Dioxide 24 mmol/L (22-30); Chloride 99 mmol/L (98-107); Estimated Creatinine Clearance 28 ml/min; Glucose 233 mg/dl (70-99); Potassium 3.6 mmol/L (3.5-5.1); Sodium 134 mmol/L (135-145); eGFR 27.55
[2023-09-23 10:26] LABS: Vitamin B12 358 pg/ml (239-931)
--- NOTE | 2023-09-23 10:36 | W.PN.INTV ---
Addendum entered and electronically signed by Marcell Greenberg MD 09/24/23 10:22:
Correction, critical care time should have been 32 minutes.
Original Note:
Today's Communication / Plan
Recommendations
Continue Bumex drip, continues to report orthopnea.
Continue heparin drip-follow PTT
Follow renal function
Electrolytes repleted, repeat labs later
Continue to wean down Levophed-Target blood pressure 140-160 systolic due to history of moyamoya disease.
Continue to monitor off antibiotics
Hopefully can discontinue PA catheter, after that hopefully can start physical therapy and Occupational Therapy
She will remain in ICU as a PA catheter is in place and Levophed is ongoing.
Continue nebulizer therapy DuoNebs and Pulmicort.
Assessment
-
Acute hypoxemic respiratory failure due to pulmonary edema requiring intubation and mechanical ventilation-elevated filling pressures on right heart catheterization 09/21/2023.
Acute on chronic heart failure with preserved ejection fraction/non-ST elevation myocardial infarction? Type II
Chest x-ray 09/21/2023: Reviewed showed mild cardiomegaly. Mild pulmonary vascular congestion. Small right pleural effusion.
Hypertensive urgency
Chronic anemia
Chronic leukocytosis
Conditions present prior admission:
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
COPD
Moderate obstruction with positive/significant bronchodilator response, follows Dr White
Chronic cough noted
Upper airway cough syndrome
Moderate cigarette smoker (10-19 cigs/day) with longstanding tobacco abuse with [id number] history
TIA, recurrent
Ovarian cancer diagnosed age (no chemo, RT)
Hypertension
Hypercholesterolemia
Hypothyroidism
Moyamoya disease
CAD with occluded RCA
CKD 3/4
Vulva cancer (no RT, chemotherapy)
PAD
Appendectomy 02/1992
Hysterectomy, BSO, omentectomy 02/1992
Partial vulvectomy 2009
Brain bypass x3
Appendectomy
Plan:
Overall clinically improved but remains on vasopressors, PA catheter in place per
Extubated 09/22/2023 per
On low rate supplemental oxygen.
Not bronchospastic on exam.
-
Acute on chronic heart failure with reduced ejection fraction
Status post right heart catheterization 09/21/2023:
1. Right dominant circulation with chronic total occlusion of the proximal RCA, collateralized by the left system.
3. Hypertensive emergency.
4. Acute congestive heart failure.
5. Severely elevated filling pressures (LVEDP = 25 mmHg, PCWP = 25 mmHg at 68.0 kg).
. Severe vasculopathy including moyamoya status post carotid artery bypass and recent aortoiliac angioplasty and stent placement.
-
Cardiology correspondence reviewed:
Continue Bumex drip-responding well -weight trending lower and creatinine holding.
Portillo in place, follow urinary output
Renal function stable.
Potassium and magnesium repleted.
Repeat labs later today.
-
Discussed with Nephrology continue hemodynamic support for now.
-
Continue to follow hemodynamics, hopefully can discontinue PA catheter today.
Continue levophed drip to maintain hemodynamics-blood pressure should be Systolic 140 160 given moyamoya disease.
Cardene drip has been discontinued.
Echocardiogram: 09/22/2023 Mildly reduced left ventricular ejection fraction. Inferior wall and apical hypokinesis. LVEF 40%. No significant valvular disease.
Continue antiplatelet
Heparin drip, follow Ptt
-
Low-grade fevers-possibly aspiration pneumonitis.
Chronic leukocytosis
Fevers improving, continue to monitor off antibiotics.
-
Anemia noted. Hemoglobin 7.5. No evidence of bleeding.
Follow H&H
May need transfusion at some point.
Workup per primary
-
Glycemic control: Insulin as needed.
Target blood sugar 140-180
-
Acute kidney injury on chronic kidney disease.
Improved with stable
Continue to follow
-
COPD without bronchospasm.
Continue nebulizer therapy DuoNebs Pulmicort while in the hospital. Upon discharge restart inhalers.
No indication for systemic corticosteroids.
Restart outpatient medications once extubated
-
Tolerating diet.
Once PA catheter discontinued, physical therapy and Occupational Therapy.
-
Case discussed with cardiology and nephrology. Discussed with primary team as well.
-
Acute on chronic critical care statement: A total of 328 minutes of critical care time was provided for this patient today. This includes management of unstable vital signs, evaluation of the patient at bedside, reviewing the patient's pertinent
medical records including ventilator settings, arterial blood gases, radiographs, microbiology, laboratory evaluations and discussion with primary team, critical care nursing, and respiratory therapy.

Diagnostic Data
Chest X-ray: 09/07/2023-Small right and trace left pleural effusions with associated probable atelectasis, slightly progressed.
Chest X-Ray: 09/01/23- No acute cardiopulmonary process.
CT Scan: AP 06/25/23- IMPRESSION:
1. Advanced aortic atherosclerotic changes without aneurysmal dilation. Irregular mural thrombus along distal thoracic and abdominal aorta. Moderate stenosis of the infrarenal aorta.
2. High-grade stenosis of the proximal right common iliac artery. Moderate stenosis left common iliac artery. Left profunda femoral stenosis. Three-vessel runoff on the right and 2 vessel runoff on left.
3. Bilateral renal cortical scarring. Atrophic changes of the left kidney as compared with the right.
LHC 04/09/23- CONCLUSIONS
1: Inferobasal akinesis with EF 54%
2: Single-vessel CAD (chronic total occlusion of the proximal RCA)
3. Recommend continued medical therapy with aspirin and high intensity statin
Echo 09/08/23:
Normal LV size with normal systolic function.
LVEF is 55% by Aguilar's method of discs..
RCA territory mild hypokinesis.
Mild concentric LVH.
Stage I diastolic dysfunction suggestive of abnormal relaxation.
Normal right ventricular size and function.
Mild mitral regurgitation.
Echo: 03/23/23- Normal biventricular size and systolic function without regional wall motion abnormality. Possible basal to mid inferior hypokinesis. Mild concentric left ventricular hypertrophy.
No significant valvular disease. Compared to previous echo 05/10/12, the possible basal inferior hypokinesis is new.
PFT's: 05/28/23- FVC was 2.06L or 58% predicted. FEV1 was 1.10L or 40% predicted. Ratio 53. Post FEV1 was 1.22L or 44% predicted, 11% change.
Lung volumes: TLC was 4.05L or 74% predicted. RV/TLC was 49%. Diffusion was 10.17 or 42% predicted. When adjusted for hemoglobin was unchanged.
Spirometry demonstrates severe obstruction. There was significant bronchodilator response in the FVC. Lung volumes demonstrate mild restriction. There is borderline air trapping. There is a moderate diffusion impairment.
Reports and relevant images were personally reviewed.
Subjective Dataa
Subjective Data
Date of Service:
Date of Service: September 23, 2023
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
Subjective:
Patient feels better but remains on vasopressors. Remains on supplemental oxygen.
Sitting out of bed
Continues to report orthopnea.
Denies any cough or phlegm production per
Denies any chest pain at rest
Denies any dizziness or blurry vision
Tolerating
Review of Systems
General: Fever (n)
Cardiopulmonary: Dyspnea (improved) and Orthopnea
GI: Abdominal Pain (n), Nausea (n) and Vomiting (n)
Neuro: Headache (n)
Objective Data
Data Reviewed
Vital Signs / I&O / Oxygen:
Vital Signs
Temp Pulse Resp BP Pulse Ox
98.3 F 86 19 148/77 95
09/23/23 07:15 09/23/23 10:15 09/23/23 10:15 09/23/23 10:00 09/23/23 08:30
Intake and Output
09/22/23 09/23/23 09/24/23
06:59 06:59 06:59
Intake Total 864.8 / 915.5 1474.0 / 1474.0
Output Total 780 / 780 2990 / 2990
Balance 84.8 / 135.5 -1516.0 / -1516.0
SaO2 [A/C] 93
SaO2 95
Nasal Cannula flow liters per 8
minute
Physical Exam
General: Respiratory Distress (n)
HEENT: Normocephalic
Labs/Micro/Reports
Lab Data
09/23/23 01:10
Laboratory Results
09/22/23 09/23/23 09/23/23
17:00 01:10 09:27
APTT Cancelled 147.6 H 66.7 H
[2023-09-23] MEDS: KCL 40 MEQ PO ×2 (10:37→20:28)
--- NOTE | 2023-09-23 10:56 | W.PN.CD ---
Addendum entered and electronically signed by Antonio Edwards DO 09/23/23 19:45:
Response to CDI: Troponin elevation is a non-ischemic myocardial injury.
Original Note:
Today's Communication / Plan
-
Increase bumetanide gtt to 1 mg/hour.
Monitor H/H, renal function.
Impression / Plan
-
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
HFpEF and chest pressure, prompting cardiac catheterization, at which time she went into flash pulmonary edema from hypertensive crisis, requiring intubation and aggressive BP management.
#HFmEF/Mixed ischemic/non-ischemic cardiomyopathy
-Acute.
-Likely due to decompensated HF + hypertensive crisis.
-Bumetanide gtt started yesterday with significant symptomatic improvement, but still orthopneic. Increase bumetanide to 1 mg/hour. Augment with metolazone if needed.
-Echo shows new cardiomyopathy (LVEF 40%) with regional wall motion abnormality (known RCA territory, now terminal LAD territory) but no significant left sided CAD on cath.
-We will start GDMT as hemodynamics and renal function will tolerate.
-[place] in place in light of CKD and diuresis.
#CAD/Elevated troponin (non-[place] troponin elevation)
-Chronic, stable.
-Cardiac catheterization shows no new CAD.
-Troponin elevation is acute and up to 0.255, but is NOT ACS.
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
#CKD
-Chronic.
-Creatinine stable at 2.0 today.
-Monitor with diuresis.
#PAD/aortic atherosclerosis
-Recent infrarenal aorta/iliac revascularization for potentially atheroembolism (AFX 25-/16-30, 28-95 proximal extension).
-CTA post procedure comments on residual mural thrombus in descending thoracic aorta.
-Dr. Brooks saw in ER and reports vascular issues stable.
-Apixaban held. Heparin gtt started.
#COPD
-Chronic.
-Bronchodilators started.
#Moyamoya disease
-Chronic, stable.
-History of carotid bypass.
-Previously recommended SBP of 140-160 to maintain cerebral perfusion (source?).
Critical Care Time = 40 minutes.
Subjective/Interval History:
Nicardipine discontinued yesterday.
6Fr right radial sheath discontinued.
Diltiazem restarted.
Q4h nebulizer treatments ordered for any bronchospastic component.
Patient consistently reports orthopnea.
Patient febrile yesterday to 38.4, defervesced early this morning.
Weight is stable. I/O -1624.
Remains hypoxic, on midflow.
H/H down to 7.5/21.9 (normal as of early August).
DATA:
TTE, 09/22/2023:
CONCLUSIONS
Mildly reduced left ventricular systolic function.
Inferior wall and apical hypokinesis.
LV ejection fraction is 40% visually and 44% by volumetric assessment.
No significant valvular disease.
Compared to the images from 09/08/2023, LVEF has decreased from 55% to 40 to
45%. Additionally, apical hypokinesis is seen in addition to the RCA
hypokinesis.
Cardiac catheterization, 09/21/2023:
CONCLUSIONS:
1. Right dominant circulation with chronic total occlusion of the proximal RCA, collateralized by the left system.
2. Acute hypoxic respiratory failure requiring intubation and mechanical ventilation.
3. Hypertensive emergency.
4. Acute congestive heart failure.
5. Severely elevated filling pressures (LVEDP = 25 mmHg, PCWP = 25 mmHg at 68.0 kg).
6. Severe vasculopathy including moyamoya status post carotid artery bypass and recent aortoiliac angioplasty and stent placement.
CTA, Chest/Abdomen/Pelvis, 09/03/2023:
IMPRESSION:
Placement of abdominal aortic and bilateral proximal common iliac artery endostent in the interval since prior study, patent.
Mural thrombus again seen along the posterior left side of the descending thoracic aorta.
Additional findings, as detailed above.
CTA Abdomen/Pelvis with runoff, 06/25/2023:
IMPRESSION:
1. Advanced aortic atherosclerotic changes without aneurysmal dilation. Irregular mural thrombus along distal thoracic and abdominal aorta. Moderate stenosis of the infrarenal aorta.
2. High-grade stenosis of the proximal right common iliac artery. Moderate stenosis left common iliac artery. Left profunda femoral stenosis. Three-vessel runoff on the right and 2 vessel runoff on the left.
3. Bilateral renal cortical scarring. Atrophic changes of the left kidney as compared with the right.
Physical Exam
Vital Signs/Labs
Vital Signs
Temp Pulse Resp BP Pulse Ox
36.8 C 86 19 148/77 95
09/23/23 07:15 09/23/23 10:15 09/23/23 10:15 09/23/23 10:00 09/23/23 08:30
09/21/23 09/22/23 09/23/23
11:59 11:59 11:59
Actual Weight 65.7 kg 65.8 kg
09/23/23 01:10
PT 26.4 Sec (11.4-14.6) H 09/21/23 19:10
INR 2.44 09/21/23 19:10
APTT 66.7 Sec (23.4-35.0) H 09/23/23 09:27
Magnesium 1.8 mg/dl (1.6-2.3) 09/23/23 01:10
Triglycerides 143 mg/dl (10-149) 09/22/23 03:57
LDL Cholesterol, Calc 46 mg/dl 09/22/23 03:57
VLDL Cholesterol, Calc 28 mg/dl (0-30) 09/22/23 03:57
HDL Cholesterol 44 mg/dl 09/22/23 03:57
09/21/23
14:07
Csk-V-Llftzyqpbgg Pept > 08317
LAB Results
09/21/23 09/21/23 09/21/23
14:07 19:10 21:51
Troponin I 0.215 H* 0.171 H* Cancelled
09/22/23 09/22/23
03:57 10:01
Troponin I 0.255 H* 0.210 H*
Physical Exam
Constitutional: No acute distress
EENT: Anicteric and Moist mucous membranes
Cardiovascular: Rhythm & rate is regular, Pedal edema is absent, JVD pressure is normal, S1S2 is normal and Murmur/rub/gallop absent
Respiratory: Respiratory effort normal, Wheeze Absent, Rhonchi Absent and Crackles Present (Bilateral bases.)
GI: Soft, Distention absent, Flat, Non tender and Normal bowel sounds
Neuro/Psych: AO x 3
Other: Cath Site (Right radial artery access site is C/D/I.)
Data Reviewed
-
Date of Service: September 23, 2023
Medical Decision Making: Reviewed Test Results, Independent Historian Assessment, Test Interpretation and Review of Case with other Provider
EKG: Tracing Personally Visualized and interpreted and Report Reviewed by me
Echo: Tracing Personally Visualized and interpreted and Report Reviewed by me
X-Ray/CT/US/MRI/NUC/PET: Image Personally Visualized and interpreted, Report Reviewed by me and Discussed with Patient
Medical Tests (PFT, Pathology etc): Image Personally Visualized and interpreted, Report Reviewed by me, Discussed with Physician and Discussed with Patient
Labs: Labs Reviewed by me
Old Records: Reviewed
[2023-09-23] MEDS: FERRLECIT 110 MG IV (11:50)
--- NOTE | 2023-09-23 12:00 | PTCARENOTE ---
seen by Dr. Edwards, questions answered, bumex increased as ordered.
--- NOTE | 2023-09-23 13:05 | PTCARENOTE ---
standing scale weight obtained, exactly same as previously recorded bedscale weight.
--- NOTE | 2023-09-23 14:16 | PN.CDI ---
CDI
- -
CDI:
Physician Documentation Request
Admit Date: 09/21/23 18:32
Dear Doctor Jerry,
Clinical Indicators:
Patient admitted with decompensated HFpEF.
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
Troponin trend:
09/21/23 09/21/23 09/22/23
14:07 19:10 03:57
Troponin I 0.215 H* 0.171 H* 0.255 H*
09/22/23
10:01
Troponin I 0.210 H*
Please clarify the etiology of the troponin elevation:
Non ischemic myocardial injury
Type II MN
Demand ischemia
Elevated troponin only
Other, please specify
Use of terms such as suspected, likely, concern for, or probable (associated with a specific diagnosis that is being evaluated, monitored, or treated as if it exists) are acceptable and can be coded in the inpatient setting, when documented at the
time of discharge.
Thank you,
JAGRUTI Colin RN
CDI Specialist
available via tiger text
Please use your independent medical judgment in providing your response.
--- NOTE | 2023-09-23 15:50 | PTCARENOTE ---
uncomfortable, restless, back out of bed to recliner, positioned for comfort. rest of assessment unchanged.
[2023-09-23 16:36] LABS: APTT 139.9 Sec (23.4-35.0)
[2023-09-23 16:54] LABS: Blood Urea Nitrogen 35 mg/dl (7-17); Calcium 8.6 mg/dl (8.4-10.2); Carbon Dioxide 25 mmol/L (22-30); Chloride 99 mmol/L (98-107); Estimated Creatinine Clearance 27 ml/min; Glucose 167 mg/dl (70-99); Magnesium 1.7 mg/dl (1.6-2.3); Potassium 3.6 mmol/L (3.5-5.1); Sodium 135 mmol/L (135-145); eGFR 25.99
--- NOTE | 2023-09-23 18:00 | PTCARENOTE ---
verbalizing about what DNR means if she becomes more unstable, increased resp distress, support given. Moved to ICU room 3362 to be less remote from remainder of patients. presently in bed, resting, comfortable, occas appears to tripod, notes
heavy breathing at times. remains on 8 l midflow. call ríos in reach, plan of care reviewed.
--- NOTE | 2023-09-23 20:07 | PTCARENOTE ---
Addendum entered by Linda Talley RN 09/23/23 22:10:
pa and cvp zeroed and functioning.
Original Note:
pt received from previous rn- pt resting in bed, able to shift and reposition weight- educated about wires and monitoring for safety- verbalized understanding. aox4, nsr with prolonged qt on monitor with rare pvcs. pt with doppler pedal and pt
pulses, dusky in color. palpable radial pulses. right ij cordis and swan site c/d/i. see co and ci as charted. pt remains on 8L midflow with scatted coarse breath sounds. pt with minimal pain at this time. syed draining cyu. remains on heparin gtt,
levophed for systolic 140-160, and bumex gtt. potassium and mag replacement ordered. all safety precautions in place, call ríos within reach.
[2023-09-23] MEDS: CYMBALTA DELAYED RELEASE 30 MG PO (20:28)
[2023-09-23] MEDS: KCL 50 IV (20:40)
[2023-09-23] MEDS: MAGNESIUM SULFATE 100 IV (20:41)
[2023-09-23] MEDS: HEPARIN 25000 UNITS/250 ML IV (20:41)
--- NOTE | 2023-09-23 23:41 | PTCARENOTE ---
assessment unchanged. pt shifting weight in bed. tolerated bipap for approx 1 hour, back on 8Lmidflow. resting comfortably. gtts unchanged.
[2023-09-23 23:44] LABS: APTT 92.5 Sec (23.4-35.0)
[2023-09-24] VITALS (26 sets, daily range): BP systolic 131–157; BP diastolic 66–99; PULSE 2–94; BMI 21.9; BMI 22.1
[2023-09-24] MEDS: MORPHINE SULFATE 1 MG IV ×2 (01:08→20:56)
--- NOTE | 2023-09-24 01:11 | PTCARENOTE ---
pt feeling sob- sats 90 on 10L, placed back on bipap, given morphine. pt repositioned for comfort.
[2023-09-24 05:36] LABS: Hematocrit 28.6 % (37.0-47.0); Hemoglobin 9.4 g/dL (12.0-16.0); Mean Corp Hgb Conc. 32.9 g/dL (33.0-37.0); Mean Corpuscular Hgb 29.9 pg (27.0-31.0); Mean Corpuscular Volume 91.1 fL (81.0-99.0); Mean Platelet Volume 10.3 fL (7.4-10.4); Platelet Count 390 10^3/uL (130-400); Red Blood Cell Count 3.14 10^6/uL (4.20-5.40); Red Cell Dist. Width 13.6 % (11.5-14.5); White Blood Cell Count 16.1 10^3/uL (4.8-10.8)
[2023-09-24] MEDS: BUMEX 50 IV (05:36)
[2023-09-24] MEDS: SYNTHROID 100 MCG PO (05:36)
--- NOTE | 2023-09-24 05:48 | PTCARENOTE ---
pt oob to chair, back on midflow, pt assisted with am care. resting comfortably at this time. assessment unchanged further.
[2023-09-24 05:55] LABS: APTT 100.9 Sec (23.4-35.0)
[2023-09-24 07:02] LABS: Blood Urea Nitrogen 35 mg/dl (7-17); Calcium 9.4 mg/dl (8.4-10.2); Carbon Dioxide 21 mmol/L (22-30); Chloride 103 mmol/L (98-107); Estimated Creatinine Clearance 27 ml/min; Glucose 137 mg/dl (70-99); Potassium 4.5 mmol/L (3.5-5.1); Sodium 136 mmol/L (135-145); eGFR 25.99
[2023-09-24] MEDS: PULMICORT 0.5 MG INH ×2 (07:33→19:49)
[2023-09-24] MEDS: LOW STRENGTH ASPIRIN 81 MG PO (07:57)
[2023-09-24] MEDS: VITAMIN D3 (cholecalciferol) 50 MCG PO (07:57)
[2023-09-24] MEDS: LIPITOR 80 MG PO (07:57)
--- NOTE | 2023-09-24 08:44 | W.PN.HOSP.TC ---
Addendum entered and electronically signed by Farzaneh Steward MD 09/24/23 11:27:
CKD III only
Original Note:
Today's Communication/Plan
-
see plan
Assessment / Plan
Assessment / Plan
63-year-old female with past medical history of PAD with recent aortoiliac stent, CAD, CKD IV, moyamoya syndrome, hypothyroidism, hyperlipidemia, hypertension, ovarian cancer, TIA, COPD, brain bypass x 3 came to the hospital with chest pain and
shortness of breath. EKG with new ST depressions. Initial troponin is 0.215 with a proBNP greater than 27,000, creatinine 2.0 (baseline). She was taken urgently to cardiac cath complicated by acute resp failure requiring intubation; shown to have
severely elevated filling pressures.
.
Acute hypoxemic respiratory failure secondary pulmonary edema requiring intubation mechanical ventilation, elevated filling pressures on the catheterization
Hypertensive emergency with flash pulmonary edema
Acute on chronic congestive heart failure with preserved ejection fraction
-cardiac cath without significant CAD;+ elevated pressures
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
-continue diuresis with Bumex gtt, weight drop overnight
-Heparin per cardiology
-Due to her history of moyamoya disease, blood pressure must be kept above 140, between 140 and 160; started on levophed (has nicardipine PRN SBP > 160)
-continue aspirin/statin
Hypokalemia
-repleted
# Chronic leukocytosis
Fever 09/21, likely 2/2 aspiration pneumonitis
-afebrile overnight and does not appear infected this morning - monitor
-WBC improving
# Normocytic anemia
-No active bleeding
-Continue to trend, stable
-iron studies - anemia inflammation
# Hypokalemia/acute kidney injury on CKD stage IIIb
creatinine stable
with syed
monitor
Nephrology following
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
-bilaterally s/p diagnostic arteriogram, AFX stent graft placement, balloon angioplasty 09/01/23
-eliquis on hold. Restart when okay with cardiology; on heparin gtt now
#Livedo reticularis
-vascular following; no acute issues from vascular standpoint
#essential HTN
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
#anxiety
-duloxetine continued
#hypothyroidism
-levothyroxine continued
# ex Smoker
#COPD
-nebs prn for sob/wheezing
#Mixed hyperlipidemia
-statin continued
#Moyamoya syndrome, 3 surgical interventions
#DVT prophylaxis - Heparin gtt
#CODE status
-full code
Anticipated Discharge: > 48 hours
Subjective/Interval History
-
Date of Service: September 24, 2023
short of breath laying flat
was SOB on BiPAP s/p morphine which helped relieve symptoms
Objective Data
-
Labs:
Laboratory Results
09/23/23 09/24/23 09/24/23
23:20 00:05 05:31
WBC 16.1 H
Hgb 9.4 L D
Hct 28.6 L
Plt Count 390
APTT 92.5 H Cancelled 100.9 H
Sodium 136
Potassium 4.5
Chloride 103
Carbon Dioxide 21 L
BUN 35 H
Creatinine 2.1 H
Glucose 137 H
Calcium 9.4
Vital Signs:
Vital Signs
Temp Pulse Resp BP Pulse Ox
99.2 F 95 18 134/99 97
09/24/23 07:33 09/24/23 08:05 09/24/23 08:05 09/24/23 08:00 09/24/23 08:05
I&O
09/23/23 09/24/23 09/25/23
06:59 06:59 06:59
Intake Total 1474.0 / 1501.0 1755.7 / 2016.2 521.0 / 521.0
Output Total 2990 / 2990 4630 / 4780 300 / 300
Balance -1516.0 / -1489.0 -2874.3 / -2763.8 221.0 / 221.0
Review of Systems
-
History Source: Patient
All other systems: Reviewed and negative
Physical Exam
-
General: No Apparent Distress and Conversant
HEENT: PERRLA
Respiratory: Rales
Cardiac: Regular Rhythm and S1/S2
GI: Soft and Nontender
Musculoskeletal: No Edema
Skin: Dry; Negative Rash
Neuro: AO x 3
Psych: Calm
Data Reviewed
-
Diagnostic Radiology: Report Reviewed by me
Labs: Labs Reviewed by me
[2023-09-24 09:09] LABS: Magnesium 1.9 mg/dl (1.6-2.3)
--- NOTE | 2023-09-24 09:21 | W.PN.CD ---
Today's Communication / Plan
-
Hold bumex
Monitor HR and BP
Newfane Yovany likely to remove tomorrow
ISB and bowel regimen
Impression / Plan
-
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
HFpEF and chest pressure, prompting cardiac catheterization, at which time she went into flash pulmonary edema from hypertensive crisis, requiring intubation and aggressive BP management.
#HFmEF/Mixed ischemic/non-ischemic cardiomyopathy
-Acute.
-Likely due to decompensated HF + hypertensive crisis.
-She appears more euvolemic today CVP is showing a negative number and mPAP is 15-18 mmHg
-Echo shows new cardiomyopathy (LVEF 40%) with regional wall motion abnormality (known RCA territory, now terminal LAD territory) but no significant left sided CAD on cath.
-GDMT will be extremely difficult given restrictive BP
-Newfane-Yovany in place in light of CKD and diuresis => damionley d/c tomorrow September 24 as now appearing euvolemic
- stop bumex gtt
#CAD/Elevated troponin (non-PR troponin elevation)
-Chronic, stable.
-Cardiac catheterization shows no new CAD.
-Troponin elevation is acute and up to 0.255, but is NOT ACS.
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
#CKD
-Chronic.
-Creatinine stable at 2.1 today.
-Monitor with diuresis.
#PAD/aortic atherosclerosis
-Recent infrarenal aorta/iliac revascularization for potentially atheroembolism (AFX 25-90/16-30, 28-95 proximal extension).
-CTA post procedure comments on residual mural thrombus in descending thoracic aorta.
-Dr. Brooks saw in ER and reports vascular issues stable.
-Apixaban held. Heparin gtt started.
#COPD
-Chronic.
-Bronchodilators started.
#Moyamoya disease
-Chronic, stable.
-History of carotid bypass.
-Previously recommended SBP of 140-160 to maintain cerebral perfusion (source?).
Critical Care Time = 35 minutes.
Subjective/Interval History:
Nicardipine discontinued yesterday.
6Fr right radial sheath discontinued.
Diltiazem restarted.
Q4h nebulizer treatments ordered for any bronchospastic component.
Patient consistently reports orthopnea.
Patient febrile yesterday to 38.4, defervesced early this morning.
Weight is stable. I/O -1624.
Remains hypoxic, on midflow.
H/H down to 7.5/21.9 (normal as of early August).
DATA:
TTE, 09/22/2023:
CONCLUSIONS
Mildly reduced left ventricular systolic function.
Inferior wall and apical hypokinesis.
LV ejection fraction is 40% visually and 44% by volumetric assessment.
No significant valvular disease.
Compared to the images from 09/08/2023, LVEF has decreased from 55% to 40 to
45%. Additionally, apical hypokinesis is seen in addition to the RCA
hypokinesis.
Cardiac catheterization, 09/21/2023:
CONCLUSIONS:
1. Right dominant circulation with chronic total occlusion of the proximal RCA, collateralized by the left system.
2. Acute hypoxic respiratory failure requiring intubation and mechanical ventilation.
3. Hypertensive emergency.
4. Acute congestive heart failure.
5. Severely elevated filling pressures (LVEDP = 25 mmHg, PCWP = 25 mmHg at 68.0 kg).
6. Severe vasculopathy including moyamoya status post carotid artery bypass and recent aortoiliac angioplasty and stent placement.
CTA, Chest/Abdomen/Pelvis, 09/03/2023:
IMPRESSION:
Placement of abdominal aortic and bilateral proximal common iliac artery endostent in the interval since prior study, patent.
Mural thrombus again seen along the posterior left side of the descending thoracic aorta.
Additional findings, as detailed above.
CTA Abdomen/Pelvis with runoff, 06/25/2023:
IMPRESSION:
1. Advanced aortic atherosclerotic changes without aneurysmal dilation. Irregular mural thrombus along distal thoracic and abdominal aorta. Moderate stenosis of the infrarenal aorta.
2. High-grade stenosis of the proximal right common iliac artery. Moderate stenosis left common iliac artery. Left profunda femoral stenosis. Three-vessel runoff on the right and 2 vessel runoff on the left.
3. Bilateral renal cortical scarring. Atrophic changes of the left kidney as compared with the right.
Physical Exam
Vital Signs/Labs
Vital Signs
Temp Pulse Resp BP Pulse Ox
99.2 F 95 18 134/99 97
09/24/23 07:33 09/24/23 08:05 09/24/23 08:05 09/24/23 08:00 09/24/23 08:05
09/23/23 09/24/23 09/25/23
06:59 06:59 06:59
Actual Weight 145 lb 1.027 oz 140 lb 10.479 oz
09/24/23 05:31
09/24/23 05:31
PT 26.4 Sec (11.4-14.6) H 09/21/23 19:10
INR 2.44 09/21/23 19:10
APTT 100.9 Sec (23.4-35.0) H 09/24/23 05:31
Magnesium 1.9 mg/dl (1.6-2.3) 09/24/23 05:31
Triglycerides 143 mg/dl (10-149) 09/22/23 03:57
LDL Cholesterol, Calc 46 mg/dl 09/22/23 03:57
VLDL Cholesterol, Calc 28 mg/dl (0-30) 09/22/23 03:57
HDL Cholesterol 44 mg/dl 09/22/23 03:57
09/21/23
14:07
Yxi-X-Obtojgvbupi Pept > 80009
LAB Results
09/21/23 09/21/23 09/21/23
14:07 19:10 21:51
Troponin I 0.215 H* 0.171 H* Cancelled
09/22/23 09/22/23
03:57 10:01
Troponin I 0.255 H* 0.210 H*
Physical Exam
Constitutional: No acute distress and Comfortable
EENT: Anicteric
Cardiovascular: Rhythm & rate is regular and Pedal edema is absent
Respiratory: Respiratory effort normal and Lungs clear to auscul. (decreased b/s at right base )
GI: Soft
Neuro/Psych: AO x 3
Data Reviewed
-
Date of Service: September 24, 2023
Medical Decision Making: Reviewed Test Results
EKG: Tracing Personally Visualized and interpreted (sr)
Echo: Report Reviewed by me
Labs: Labs Reviewed by me
Critical Care Time (in minutes): 35
[2023-09-24] MEDS: CARDIZEM CD PO (09:32)
--- NOTE | 2023-09-24 09:44 | PN.CDI ---
CDI
- -
CDI:
Physician Documentation Request
Admit Date: 09/21/23 18:32
Dear Doctor Nichelle,
Clinical Indicators:
Documentation in the record includes the diagnosis of SUAD and CKD.
09/22 Nephrology PN, 'Chronic kidney disease stage IV with baseline creatinine of 2'
09/23 PN, 'acute kidney injury on CKD stage IIIb'
Cr/GFR trend:
09/21/23 09/22/23 09/23/23
14:07 03:57 01:10
Creatinine 2.0 H 2.2 H 2.1 H
eGFR 27.55 24.58 25.99
09/23/23 09/23/23 09/24/23
09:27 16:12 05:31
Creatinine 2.0 H 2.1 H 2.1 H
eGFR 27.55 25.99 25.99
Due to potentially conflicting documentation, please clarify the patient's renal status:
Chronic stable CKD IV
SUAD on CKD IIIb (documentation complete)
Other, please specify
Criteria for SUAD*
1 Increase in serum creatinine by > or = to 0.3 mg/dL (> or = to 26.5 micromol/L) within 48 hours, OR
2 Increase in serum creatinine to > or = to 1.5 times baseline, which is known or presumed to have occurred within 7 days, OR
3 Urine volume < 0.5 nL/kg/hour for six hours
Stages of Chronic Kidney Disease*
Level Description GFR
G1 Normal or High >90
G2 Mildly decreased 60-89
G3a Mildly to moderately decreased 45-59
G3b Moderately to severely decreased 30-44
G4 Severely decreased 15-29
G5 Kidney failure <15
Use of terms such as suspected, likely, concern for, or probable (associated with a specific diagnosis that is being evaluated, monitored, or treated as if it exists) are acceptable and can be coded in the inpatient setting, when documented at the
time of discharge.
Thank you,
JAGRUTI Colin RN
CDI Specialist
available via tiger text
Please use your independent medical judgment in providing your response.
*Source: Kidney Disease: Improving Global Outcomes (KDIGO) 2012
[2023-09-24] MEDS: XANAX 0.25 MG PO ×2 (09:50→13:41)
--- NOTE | 2023-09-24 09:58 | PTCARENOTE ---
PT OOB in chair resting, able to shift and reposition weight- educated about wires and monitoring for safety- verbalized understanding. AOx4, able to switch bed to chair with assistance x1, NSR with occasional PVC, +Doppler pedal pulses nails dusky
in color. palpable radial pulses.Right IJ cordis and swan site c/d/i. see co and ci as charted.leveled and zeroed as per protocol, remains 5L midflow with scatted coarse fine crackles sounds. Portillo draining clear yellow urine, remains on heparin
gtt, Levophed for systolic 140-160, and Bumex placed on hold, all safety precautions in place, call ríos within reach, at bedside, updated by Cardiology and Pulmonology
--- NOTE | 2023-09-24 10:13 | W.PN.INTV ---
Today's Communication / Plan
Recommendations
Discontinue Bumex drip
PA catheter will remain in place
Hold Cardizem this morning, if more hypertensive later today can give.
Incentive spirometer
Continue nebulizer
Follow H&H
Follow renal function and urinary output
Heparin drip-follow PTT
Assessment
-
Acute hypoxemic respiratory failure due to pulmonary edema requiring intubation and mechanical ventilation-elevated filling pressures on right heart catheterization 09/21/2023.
Acute on chronic heart failure with preserved ejection fraction/non-ST elevation myocardial infarction? Type II
Chest x-ray 09/21/2023: Reviewed showed mild cardiomegaly. Mild pulmonary vascular congestion. Small right pleural effusion.
Hypertensive urgency
Chronic anemia
Chronic leukocytosis
Conditions present prior admission:
Conditions present [employer]D INTERNSHIP
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
COPD
Moderate obstruction with positive/significant bronchodilator response, follows Dr White
Chronic cough noted
Upper airway cough syndrome
Moderate cigarette smoker (10-19 cigs/day) with longstanding tobacco abuse with 51-lauh-kwnf history
TIA, recurrent
Ovarian cancer diagnosed age (no chemo, RT)
Hypertension
Hypercholesterolemia
Hypothyroidism
Moyamoya disease
CAD with occluded RCA
CKD 3/4
Vulva cancer (no RT, chemotherapy)
PAD
Appendectomy 02/1992
Hysterectomy, BSO, omentectomy 02/1992
Partial vulvectomy 2009
Brain bypass x3
Appendectomy
Plan:
Overall clinically improved but remains on vasopressors, PA catheter in place.
Extubated 09/22/2023.
Remains on 6 L supplemental oxygen, pulse ox 97%. Will continue to wean down as able.
Not bronchospastic on exam.
-
Acute on chronic heart failure with reduced ejection fraction
Status post right heart catheterization 09/21/2023:
1. Right dominant circulation with chronic total occlusion of the proximal RCA, collateralized by the left system.
3. Hypertensive emergency.
4. Acute congestive heart failure.
5. Severely elevated filling pressures (LVEDP = 25 mmHg, PCWP = 25 mmHg at 68.0 kg).
. Severe vasculopathy including moyamoya status post carotid artery bypass and recent aortoiliac angioplasty and stent placement.
-
Cardiology correspondence reviewed:
Weight trending lower, good urinary output, negative fluid balance
Discussed with cardiology today, discontinue Bumex drip and observe.
Creatinine/urinary output has been stable.
Continue to follow hemodynamics
Potassium and magnesium repleted.
-
Discussed with Nephrology continue hemodynamic support for now.
-
Continue to follow hemodynamics, discussed with cardiology will maintain PA catheter for 1 additional day.
Suspect patient now close to euvolemic Based on hemodynamics CVP etc.
Continue levophed drip to maintain hemodynamics-blood pressure should be Systolic 140 160 given moyamoya disease. Hopefully can be weaned off.
Hold Cardizem this morning systolic blood pressure 140 mmHg. Would monitor now that Bumex drip has been discontinued.
Echocardiogram: 09/22/2023 Mildly reduced left ventricular ejection fraction. Inferior wall and apical hypokinesis. LVEF 40%. No significant valvular disease.
Continue antiplatelet
Heparin drip, follow Ptt, eventually to restart oral anticoagulants.
-
Low-grade fevers-possibly aspiration pneumonitis. Resolved.
Chronic leukocytosis
Fevers improving, continue to monitor off antibiotics.
-
Hypoxemic respiratory failure: Currently on 5 L nasal cannula. Improved.
Not bronchospastic on exam
Encourage incentive spirometry
Once PA catheter is removed tomorrow hopefully increase physical activity.
-
Anemia noted. Hemoglobin 9.5. No evidence for bleeding per
Follow H&H
-
Glycemic control: Insulin as needed.
Target blood sugar 140-180
-
Acute kidney injury on chronic kidney disease.
Stable despite diuresis.
Nephrology continues to follow.
Continue to follow
-
COPD without bronchospasm.
Continue Pulmicort twice a day
DuoNebs as needed. Avoid beta agonist as able.
No indication for systemic corticosteroids.
Restart outpatient medications once extubated
-
Tolerating diet.
Once PA catheter discontinued, physical therapy and Occupational Therapy.
-
Case discussed with cardiology and nephrology. Discussed with primary team as well.
-
Acute on chronic critical care statement: A total of 31 minutes of critical care time was provided for this patient today. This includes management of unstable vital signs, evaluation of the patient at bedside, reviewing the patient's pertinent
medical records including ventilator settings, arterial blood gases, radiographs, microbiology, laboratory evaluations and discussion with primary team, critical care nursing, and respiratory therapy.

Diagnostic Data
Chest X-ray: 09/07/2023-Small right and trace left pleural effusions with associated probable atelectasis, slightly progressed.
Chest X-Ray: 09/01/23- No acute cardiopulmonary process.
CT Scan: AP 06/25/23- IMPRESSION:
1. Advanced aortic atherosclerotic changes without aneurysmal dilation. Irregular mural thrombus along distal thoracic and abdominal aorta. Moderate stenosis of the infrarenal aorta.
2. High-grade stenosis of the proximal right common iliac artery. Moderate stenosis left common iliac artery. Left profunda femoral stenosis. Three-vessel runoff on the right and 2 vessel runoff on left.
3. Bilateral renal cortical scarring. Atrophic changes of the left kidney as compared with the right.
[facility] 04/09/23- CONCLUSIONS
1: Inferobasal akinesis with EF 54%
2: Single-vessel CAD (chronic total occlusion of the proximal RCA)
3. Recommend continued medical therapy with aspirin and high intensity statin
Echo 09/08/23:
Normal LV size with normal systolic function.
LVEF is 55% by Aguilar's method of discs..
RCA territory mild hypokinesis.
Mild concentric LVH.
Stage I diastolic dysfunction suggestive of abnormal relaxation.
Normal right ventricular size and function.
Mild mitral regurgitation.
Echo: 03/23/23- Normal biventricular size and systolic function without regional wall motion abnormality. Possible basal to mid inferior hypokinesis. Mild concentric left ventricular hypertrophy.
No significant valvular disease. Compared to previous echo 05/10/12, the possible basal inferior hypokinesis is new.
PFT's: 05/28/23- FVC was 2.06L or 58% predicted. FEV1 was 1.10L or 40% predicted. Ratio 53. Post FEV1 was 1.22L or 44% predicted, 11% change.
Lung volumes: TLC was 4.05L or 74% predicted. RV/TLC was 49%. Diffusion was 10.17 or 42% predicted. When adjusted for hemoglobin was unchanged.
Spirometry demonstrates severe obstruction. There was significant bronchodilator response in the FVC. Lung volumes demonstrate mild restriction. There is borderline air trapping. There is a moderate diffusion impairment.
Reports and relevant images were personally reviewed.
Subjective Dataa
Subjective Data
Date of Service:
Date of Service: September 24, 2023
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
Subjective:
No overnight events
Remains on low-dose Levophed.
Remain on Bumex drip with good response.
Patient relatively asymptomatic this morning.
Overall feels better.
Patient wore BiPAP for few hours last night.
Review of Systems
General: Fever (n)
Cardiopulmonary: Dyspnea (None at rest), Cough (n), Wheezing (n) and Chest Pain (n)
GI: Abdominal Pain (n) and Nausea (n)
Objective Data
Data Reviewed
Vital Signs / I&O / Oxygen:
Vital Signs
Temp Pulse Resp BP Pulse Ox
99.2 F 95 18 134/99 97
09/24/23 07:33 09/24/23 08:05 09/24/23 08:05 09/24/23 08:00 09/24/23 08:05
Intake and Output
09/23/23 09/24/23 09/25/23
06:59 06:59 06:59
Intake Total 1474.0 / 1501.0 1755.7 / 2016.2 541.5 / 541.5
Output Total 2990 / 2990 4630 / 4780 300 / 300
Balance -1516.0 / -1489.0 -2874.3 / -2763.8 241.5 / 241.5
SaO2 [A/C] 93
SaO2 97
Nasal Cannula flow liters per 5
minute
Physical Exam
General: Respiratory Distress (n)
HEENT: Normocephalic
Cardiovascular: S1-S2
Respiratory: Clear, Wheeze (n), Non-Labored Respirations and Other (Left base diminished sounds.)
GI: Soft and Non Distended
Neurology: Awake and Oriented
Skin: Warm
Labs/Micro/Reports
Lab Data
09/24/23 05:31
09/24/23 05:31
Laboratory Results
09/23/23 09/23/23 09/24/23
16:12 23:20 00:05
APTT 139.9 H 92.5 H Cancelled
09/24/23
05:31
APTT 100.9 H
--- NOTE | 2023-09-24 10:15 | PTCARENOTE ---
Levophed placed on hold, PT's BP is within range ordered by doctors, will continue to monitor SBP
--- NOTE | 2023-09-24 10:35 | CM ---
CM following re: discharge planning.
Discussed in rounds, reviewed pt's chart, met with pt. Per Rounds meeting, pt , uses Bi-pap at night, currently requires 8L midflow NC of O2. Pt stated she feels she will need home Oxygen and pt was notified that pt will have all necessary DME she
needs prior to discharge.
PT and PT evaluations noted - home PT vs SNF recommended. CM discussed it with pt and she stated she preferred to return back home with home PT. Pt stated she had [facility] before admission to and she preferred to have [facility] again. Pt's
supports pt's plan.
Per VN liaison, pt is active with [facility] and [facility] will resume [facility] services upon the discharge.
Please fax discharge instruction at discharge to [facility] at [phone]
D/C plan: home with [facility] and family support. to transport at discharge.
CM will follow with discharge plan updates as hospitalization progresses.
[2023-09-24] MEDS: SENOKOT-S 1 TABLET PO ×2 (11:17→20:56)
--- NOTE | 2023-09-24 11:50 | W.PN.NEPH.PH ---
Today's Communication / Plan
-
follow lab s
diuresis per cards
Assessment/Plan
-
Impression:
Chest pain shortness of breath: Congestive heart failure decompensation/non-ST elevation [place]
Chronic kidney disease stage IV with baseline creatinine of 2
Hypertension urgency
Aorta iliac revascularization following potential atheroembolism August 2023
COPD
Moyamoya disease/complex peripheral arterial disease
Intubation
echo EF 40-45%, WMA
Plan:
-Kidney function remains at baseline/non oliguric
diuresis on hold per cards
pulmonary capillary wedge pressure of 25 following cardiac cath (no intervention performed) at wt of 65.7kg 09/20
wt improving
BP stable off levo
Fe def noted with Fe sat only 8%, cont IV iron 05/20, prn transfusion hb better wiht diuresis
follow labs
d/w pt
-
-
Date of Service: September 24, 2023
CC / HPI / ROS
-
Chief Complaint:
CKD
History of Present Illness:
cr stable at baseline 2.1
brisk diuresis with bumex gtt, syed in place
wt decreasing
BP stable off nicardipine and levo
no fever
s/p extubation 09/21 on mid flow O2 5lit
hb better at 9.4
PA pressures better
Review of Systems:
sob better
no cp, or n/v
Labs
-
Labs:
WBC 16.1 10^3/uL (4.8-10.8) H 09/24/23 05:31
RBC 3.14 10^6/uL (4.20-5.40) L 09/24/23 05:31
Hgb 9.4 g/dL (12.0-16.0) L D 09/24/23 05:31
Hct 28.6 % (37.0-47.0) L 09/24/23 05:31
Plt Count 390 10^3/uL (130-400) 09/24/23 05:31
Sodium 136 mmol/L (135-145) 09/24/23 05:31
Potassium 4.5 mmol/L (3.5-5.1) 09/24/23 05:31
Chloride 103 mmol/L (98-107) 09/24/23 05:31
Carbon Dioxide 21 mmol/L (22-30) L 09/24/23 05:31
BUN 35 mg/dl (7-17) H 09/24/23 05:31
Creatinine 2.1 mg/dL (0.6-1.0) H 09/24/23 05:31
eGFR 25.99 09/24/23 05:31
Glucose 137 mg/dl (70-99) H 09/24/23 05:31
Calcium 9.4 mg/dl (8.4-10.2) 09/24/23 05:31
Phosphorus 5.0 mg/dl (2.5-4.5) H 09/21/23 19:10
Otz-F-Rpgqygondii Pept > 12750 pg/ml 09/21/23 14:07
Albumin 3.7 g/dl (3.5-5.0) 09/21/23 14:07
Physical Exam
-
Vital Signs:
Vital Signs
Temp Pulse Resp BP Pulse Ox
98.9 F 95 18 134/99 97
09/24/23 11:14 09/24/23 08:05 09/24/23 08:05 09/24/23 08:00 09/24/23 08:05
Cardiovascular:: Regular rate and rhythm
Lung Excursion:: Normal (decreased)
Abdomen:: Nontender and Soft
Extremity Edema:: None: Bilateral:
Syed Catheter: Yes
[2023-09-24] MEDS: FERRLECIT 110 MG IV (13:42)
--- NOTE | 2023-09-24 14:09 | PTCARENOTE ---
PT rang very distraught and feeling as though she could not catch her breath, O2 saturation 94%, PT requesting OOB to chair, assisted x1 to chair, Xanax given, O2 dropped to 4L, O2 saturation 95%, RR 16, no distress noted
--- NOTE | 2023-09-24 15:32 | PTCARENOTE ---
Weaned O2 down to 4L, O2 saturation in the mid to upper 90's, PT feels more relaxed at this time, after Xanax, at bedside
--- NOTE | 2023-09-24 17:43 | PTCARENOTE ---
Assisted PT back to bed, releveled and rezeroed CVP and PAP, PT denies any complaints at this time, assessment remains unchanged
--- NOTE | 2023-09-24 19:37 | PTCARENOTE ---
Addendum entered by Linda Talley RN 09/24/23 19:39:
pt with dusky lower extremities- doppler pedal pulses.
Original Note:
pt received from previous rn- aox4, on 4LNC. nsr on monitor. right ij cordis and swan intact- pa and cvp lines zeroed and calibrated. heparin gtt continues. pt able to turn and reposition self, verbalized understanding to all safety precautions.
syed draining yellow urine. peripheral ivs c/d/i, flush without difficulty. pt aware of plan of care for this evening. call ríos within reach. all safety precautions in place.
[2023-09-24] MEDS: CYMBALTA DELAYED RELEASE 30 MG PO (20:56)
[2023-09-24] MEDS: NEURONTIN 300 MG PO (20:56)
[2023-09-25] VITALS (29 sets, daily range): BP systolic 127–167; BP diastolic 66–149; BMI 21.8
--- NOTE | 2023-09-25 01:23 | PTCARENOTE ---
assessment unchanged. pt tolerated bipap for approx 1 hour.
[2023-09-25 03:24] LABS: Hematocrit 25.5 % (37.0-47.0); Hemoglobin 8.3 g/dL (12.0-16.0); Mean Corp Hgb Conc. 32.5 g/dL (33.0-37.0); Mean Corpuscular Hgb 29.7 pg (27.0-31.0); Mean Corpuscular Volume 91.4 fL (81.0-99.0); Mean Platelet Volume 10.8 fL (7.4-10.4); Platelet Count 350 10^3/uL (130-400); Red Blood Cell Count 2.79 10^6/uL (4.20-5.40); Red Cell Dist. Width 13.6 % (11.5-14.5); White Blood Cell Count 14.4 10^3/uL (4.8-10.8)
[2023-09-25 03:39] LABS: APTT 126.3 Sec (23.4-35.0)
[2023-09-25 03:54] LABS: Blood Urea Nitrogen 39 mg/dl (7-17); Calcium 9.1 mg/dl (8.4-10.2); Carbon Dioxide 26 mmol/L (22-30); Chloride 98 mmol/L (98-107); Estimated Creatinine Clearance 25 ml/min; Glucose 112 mg/dl (70-99); Potassium 3.8 mmol/L (3.5-5.1); Sodium 134 mmol/L (135-145); eGFR 24.58
--- NOTE | 2023-09-25 04:19 | PTCARENOTE ---
assessment unchanged. pt repositioning self. remains on nasal cannula. labs sent.
[2023-09-25] MEDS: SYNTHROID 100 MCG PO (05:43)
[2023-09-25] MEDS: PULMICORT 0.5 MG INH ×2 (07:20→20:20)
--- NOTE | 2023-09-25 08:09 | W.PN.NEPH.PH ---
Today's Communication / Plan
-
lasix 40mg po added
Assessment/Plan
-
Impression:
Chest pain shortness of breath: Congestive heart failure decompensation/non-ST elevation [place]
Chronic kidney disease stage IV with baseline creatinine of 2
Hypertension urgency
Aorta iliac revascularization following potential atheroembolism August 2023
COPD
Moyamoya disease/complex peripheral arterial disease
Intubation
echo EF 40-45%, WMA
Plan:
Kidney function remains at baseline/non oliguric
diuresis on hold per cards
maintain FR for hyponatremia
pulmonary capillary wedge pressure of 25 following cardiac cath (no intervention performed) at wt of 65.7kg 09/20
wt improving, will add lasix 40mg po daily re: sob and hyponatremia
BP stable off levo
Fe def noted with Fe sat only 8%, cont IV iron 05/20, prn transfusion hgb better with diuresis
follow labs
d/w pt
-
-
Date of Service: September 25, 2023
CC / HPI / ROS
-
Chief Complaint:
CKD
History of Present Illness:
cr stable at baseline 2.2
sodium at 134
brisk diuresis with bumekunal truong in place
wt decreasing
no fever
s/p extubation 09/21 on mid flow O2 5lit
hb better at 8.3
PA pressures better
Review of Systems:
sob better
no cp, or n/v
non oliguric via syed
Labs
-
Labs:
WBC 14.4 10^3/uL (4.8-10.8) H 09/25/23 03:07
RBC 2.79 10^6/uL (4.20-5.40) L 09/25/23 03:07
Hgb 8.3 g/dL (12.0-16.0) L 09/25/23 03:07
Hct 25.5 % (37.0-47.0) L 09/25/23 03:07
Plt Count 350 10^3/uL (130-400) 09/25/23 03:07
Sodium 134 mmol/L (135-145) L 09/25/23 03:07
Potassium 3.8 mmol/L (3.5-5.1) 09/25/23 03:07
Chloride 98 mmol/L (98-107) 09/25/23 03:07
Carbon Dioxide 26 mmol/L (22-30) 09/25/23 03:07
BUN 39 mg/dl (7-17) H 09/25/23 03:07
Creatinine 2.2 mg/dL (0.6-1.0) H 09/25/23 03:07
eGFR 24.58 09/25/23 03:07
Glucose 112 mg/dl (70-99) H 09/25/23 03:07
Calcium 9.1 mg/dl (8.4-10.2) 09/25/23 03:07
Phosphorus 5.0 mg/dl (2.5-4.5) H 09/21/23 19:10
Izv-B-Sshlwtibxmv Pept > 61390 pg/ml 09/21/23 14:07
Albumin 3.7 g/dl (3.5-5.0) 09/21/23 14:07
Physical Exam
-
Vital Signs:
Vital Signs
Temp Pulse Resp BP Pulse Ox
98.9 F 95 18 134/78 92
09/25/23 07:25 09/25/23 07:23 09/25/23 07:23 09/25/23 05:00 09/25/23 07:23
Cardiovascular:: Regular rate and rhythm
Lung Excursion:: Normal
Abdomen:: Nontender and Soft
Bowel Sounds:: Normal
Extremity Edema:: None: Bilateral:
Syed Catheter: Yes
[2023-09-25] MEDS: LIPITOR 80 MG PO (08:23)
[2023-09-25] MEDS: SENOKOT-S 1 TABLET PO ×2 (08:23→20:24)
[2023-09-25] MEDS: LOW STRENGTH ASPIRIN 81 MG PO (08:23)
[2023-09-25] MEDS: VITAMIN D3 (cholecalciferol) 50 MCG PO (08:23)
[2023-09-25] MEDS: HEPARIN 25000 UNITS/250 ML IV (08:26)
--- NOTE | 2023-09-25 08:29 | W.PN.HOSP.TC ---
Today's Communication/Plan
-
see plan
Assessment / Plan
Assessment / Plan
63-year-old female with past medical history of PAD with recent aortoiliac stent, CAD, CKD IV, moyamoya syndrome, hypothyroidism, hyperlipidemia, hypertension, ovarian cancer, TIA, COPD, brain bypass x 3 came to the hospital with chest pain and
shortness of breath. EKG with new ST depressions. Initial troponin is 0.215 with a proBNP greater than 27,000, creatinine 2.0 (baseline). She was taken urgently to cardiac cath complicated by acute resp failure requiring intubation; shown to have
severely elevated filling pressures.
.
Acute hypoxemic respiratory failure secondary pulmonary edema requiring intubation mechanical ventilation, elevated filling pressures on the catheterization
Hypertensive emergency with flash pulmonary edema
Acute on chronic congestive heart failure with preserved ejection fraction
-cardiac cath without significant CAD;+ elevated pressures
-required intubation in collaborative teacher 09/20; s/p extubation on 09/21
-Bumex gtt stopped per cardiology 09/23
-discussing with renal, starting oral lasix
-F/U CXR; patient remains on 5L
-Heparin per cardiology
-Due to her history of moyamoya disease, blood pressure must be kept above 140, between 140 and 160; has levophed pRN and her diltiazem has been held
-continue aspirin/statin
Hypokalemia
-repleted
# Chronic leukocytosis
Fever 09/21, likely 2/2 aspiration pneumonitis
-afebrile overnight and does not appear infected this morning - monitor
-WBC improving
# Normocytic anemia
-No active bleeding
-Continue to trend, stable
-iron studies - anemia inflammation
# Hypokalemia/acute kidney injury on CKD stage IIIb
creatinine stable
with syed
monitor
Nephrology following
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
-bilaterally s/p diagnostic arteriogram, AFX stent graft placement, balloon angioplasty 09/01/23
-eliquis on hold. Restart when okay with cardiology; on heparin gtt now
#Livedo reticularis
-vascular following; no acute issues from vascular standpoint
#essential HTN
-Diltiazem off, BP 150's
-F/U cards recs, consider resuming lower dose
#anxiety
-duloxetine continued
#hypothyroidism
-levothyroxine continued
# ex Smoker
#COPD
-nebs prn for sob/wheezing
#Mixed hyperlipidemia
-statin continued
#Moyamoya syndrome, 3 surgical interventions
#DVT prophylaxis - Heparin gtt
#CODE status
-full code
Anticipated Discharge: > 48 hours
Subjective/Interval History
-
Date of Service: September 25, 2023
more short of breath this morning
Objective Data
-
Labs:
Laboratory Results
09/25/23 09/25/23 09/25/23
03:07 06:00 10:00
WBC 14.4 H
Hgb 8.3 L
Hct 25.5 L
Plt Count 350
APTT 126.3 H Pending
HCO3 Cancelled
Sodium 134 L
Potassium 3.8
Chloride 98
Carbon Dioxide 26
BUN 39 H
Creatinine 2.2 H
Glucose 112 H
Calcium 9.1
Vital Signs:
Vital Signs
Temp Pulse Resp BP Pulse Ox
98.9 F 95 18 134/78 92
09/25/23 07:25 09/25/23 07:23 09/25/23 07:23 09/25/23 05:00 09/25/23 07:23
I&O
09/24/23 09/25/23 09/26/23
06:59 06:59 06:59
Intake Total 1755.7 / 2016.2 1076.0 / 1076.0
Output Total 4630 / 4735 1790 / 1790
Balance -2874.3 / -2763.8 -714.0 / -714.0
Review of Systems
-
History Source: Patient
All other systems: Reviewed and negative
Physical Exam
-
General: No Apparent Distress
HEENT: PERRLA
Respiratory: Rales
Cardiac: Regular Rhythm and S1/S2
GI: Soft and Nontender
Musculoskeletal: No Edema
Skin: Warm and Dry; Negative Rash
Neuro: AO x 3
Psych: Calm
Data Reviewed
-
Diagnostic Radiology: Report Reviewed by me
Labs: Labs Reviewed by me
[2023-09-25] MEDS: CARDIZEM CD PO (08:36)
--- NOTE | 2023-09-25 08:51 | W.PN.CD ---
Today's Communication / Plan
-
Monitor on PO diuretics.
Incentive spirometry.
Ambulate as tolerated.
She may need re-evaluation of her primary pulmonary disease. Role for steroids?
DC [place]-Yovany.
Impression / Plan
-
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
HFpEF and chest pressure, prompting cardiac catheterization, at which time she went into flash pulmonary edema from hypertensive crisis, requiring intubation and aggressive BP management.
#HFmEF/Mixed ischemic/non-ischemic cardiomyopathy
-Acute.
-Likely due to decompensated HF + hypertensive crisis.
-She appears more euvolemic today CVP is showing a negative number and mPAP is 15-18 mmHg
-Echo shows new cardiomyopathy (LVEF 40%) with regional wall motion abnormality (known RCA territory, now terminal LAD territory) but no significant left sided CAD on cath.
-GDMT will be extremely difficult given restrictive BP
-[place]-Yovany in place in light of CKD and diuresis. Wedge today and compare to RA pressure. D/C [place]-Yovany.
-Persistent oxygen requirement raises the possibility of primary pulmonary process (known COPD). This may need to be reassessed with formal PFTs/spirometry. Veno-occlusive disease?
#CAD/Elevated troponin (non-NE troponin elevation)
-Chronic, stable.
-Cardiac catheterization shows no new CAD.
-Troponin elevation is acute and up to 0.255, but is NOT ACS.
-Troponin elevation could be a type II event with known stable CAD ([employer]CA [employer]GER) and hypertensive crisis/volume overload and CKD.
#CKD
-Chronic.
-Creatinine stable at 2.2 today.
-Monitor with diuresis.
#PAD/aortic atherosclerosis
-Recent infrarenal aorta/iliac revascularization for potentially atheroembolism (AFX 25-90/16-30, 28-95 proximal extension).
-CTA post procedure comments on residual mural thrombus in descending thoracic aorta.
-Dr. Brooks saw in ER and reports vascular issues stable.
-Apixaban held. Heparin gtt started.
#COPD
-Chronic.
-Bronchodilators started.
#Moyamoya disease
-Chronic, stable.
-History of carotid bypass.
-Previously recommended SBP of 140-160 to maintain cerebral perfusion (source?).
Critical Care Time = 32 minutes.
Subjective/Interval History:
Bumetanide gtt discontinued yesterday.
Furosemide 40 mg PO added by nephrology.
Weight down 0.6 kg from yesterday.
Afebrile since @ 19:15.
Remains on 3-4 LNC.
I wedged the catheter, getting a PCWP 0f 24 mmHg (equal to PADP). RA pressure around 5 mmHg.
DATA:
TTE, 09/22/2023:
CONCLUSIONS
Mildly reduced left ventricular systolic function.
Inferior wall and apical hypokinesis.
LV ejection fraction is 40% visually and 44% by volumetric assessment.
No significant valvular disease.
Compared to the images from 09/08/2023, LVEF has decreased from 55% to 40 to
45%. Additionally, apical hypokinesis is seen in addition to the RCA
hypokinesis.
Cardiac catheterization, 09/21/2023:
CONCLUSIONS:
1. Right dominant circulation with chronic total occlusion of the proximal RCA, collateralized by the left system.
2. Acute hypoxic respiratory failure requiring intubation and mechanical ventilation.
3. Hypertensive emergency.
4. Acute congestive heart failure.
5. Severely elevated filling pressures (LVEDP = 25 mmHg, PCWP = 25 mmHg at 68.0 kg).
6. Severe vasculopathy including moyamoya status post carotid artery bypass and recent aortoiliac angioplasty and stent placement.
CTA, Chest/Abdomen/Pelvis, 09/03/2023:
IMPRESSION:
Placement of abdominal aortic and bilateral proximal common iliac artery endostent in the interval since prior study, patent.
Mural thrombus again seen along the posterior left side of the descending thoracic aorta.
Additional findings, as detailed above.
CTA Abdomen/Pelvis with runoff, 06/25/2023:
IMPRESSION:
1. Advanced aortic atherosclerotic changes without aneurysmal dilation. Irregular mural thrombus along distal thoracic and abdominal aorta. Moderate stenosis of the infrarenal aorta.
2. High-grade stenosis of the proximal right common iliac artery. Moderate stenosis left common iliac artery. Left profunda femoral stenosis. Three-vessel runoff on the right and 2 vessel runoff on the left.
3. Bilateral renal cortical scarring. Atrophic changes of the left kidney as compared with the right.
Physical Exam
Vital Signs/Labs
Vital Signs
Temp Pulse Resp BP Pulse Ox
37.2 C 96 24 153/87 97
09/25/23 07:25 09/25/23 08:45 09/25/23 08:45 09/25/23 08:00 09/25/23 08:45
09/23/23 09/24/23 09/25/23
11:59 11:59 11:59
Actual Weight 65.8 kg 63.8 kg 63.2 kg
09/25/23 03:07
09/25/23 03:07
PT 26.4 Sec (11.4-14.6) H 09/21/23 19:10
INR 2.44 09/21/23 19:10
APTT 126.3 Sec (23.4-35.0) H 09/25/23 03:07
Magnesium 1.9 mg/dl (1.6-2.3) 09/24/23 05:31
Triglycerides 143 mg/dl (10-149) 09/22/23 03:57
LDL Cholesterol, Calc 46 mg/dl 09/22/23 03:57
VLDL Cholesterol, Calc 28 mg/dl (0-30) 09/22/23 03:57
HDL Cholesterol 44 mg/dl 09/22/23 03:57
09/21/23
14:07
Lbd-H-Duhcztdgseh Pept > 87669
LAB Results
09/22/23
10:01
Troponin I 0.210 H*
Physical Exam
Constitutional: No acute distress and Comfortable
EENT: Anicteric and Moist mucous membranes
Cardiovascular: Rhythm & rate is regular, Pedal edema is absent, JVD pressure is normal, S1S2 is normal and Murmur/rub/gallop absent
Respiratory: Respiratory effort normal, Lungs clear to auscul., Wheeze Absent, Rhonchi Absent and Crackles Present (Bilateral bases.)
GI: Soft, Distention absent, Flat, Non tender and Normal bowel sounds
Neuro/Psych: AO x 3
Data Reviewed
-
Date of Service: September 25, 2023
Medical Decision Making: Reviewed Test Results, Independent Historian Assessment and Test Interpretation
EKG: Tracing Personally Visualized and interpreted and Report Reviewed by me
Echo: Tracing Personally Visualized and interpreted and Report Reviewed by me
X-Ray/CT/US/MRI/NUC/PET: Image Personally Visualized and interpreted and Report Reviewed by me
Medical Tests (PFT, Pathology etc): Image Personally Visualized and interpreted and Report Reviewed by me
Labs: Labs Reviewed by me
Old Records: Reviewed
[2023-09-25] MEDS: LASIX 40 MG IV ×2 (09:27→15:49)
[2023-09-25] MEDS: KCL 20 MEQ PO (09:28)
--- NOTE | 2023-09-25 10:41 | W.PN.INTV ---
Today's Communication / Plan
Recommendations
IV diuretics
Hopefully can discontinue PA catheter in
Heparin drip follow PTT
Continue nebulizer
Incentive spirometry
Wean down oxygen as able
Follow renal function and electrolytes
Remains critical care level until peak catheter can be discontinued.
Assessment
-
Acute hypoxemic respiratory failure due to pulmonary edema requiring intubation and mechanical ventilation-elevated filling pressures on right heart catheterization 09/21/2023.
Acute on chronic heart failure with preserved ejection fraction/non-ST elevation myocardial infarction? Type II
Chest x-ray 09/21/2023: Reviewed showed mild cardiomegaly. Mild pulmonary vascular congestion. Small right pleural effusion.
Hypertensive urgency
Chronic anemia
Chronic leukocytosis
Conditions present prior admission:
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
COPD
Moderate obstruction with positive/significant bronchodilator response, follows Dr White
Chronic cough noted
Upper airway cough syndrome
Moderate cigarette smoker (10-19 cigs/day) with longstanding tobacco abuse with [id number]-[id number]-deut history
TIA, recurrent
Ovarian cancer diagnosed age (no chemo, RT)
Hypertension
Hypercholesterolemia
Hypothyroidism
Moyamoya disease
CAD with occluded RCA
CKD 3/4
Vulva cancer (no RT, chemotherapy)
PAD
Appendectomy 02/1992
Hysterectomy, BSO, omentectomy 02/1992
Partial vulvectomy 2009
Brain bypass x3
Appendectomy
Plan:
Clinically improved
Vasopressors have been discontinued and hemodynamics stable.
-
Extubated 09/22/2023.
Remains on supplemental oxygen-wean down as able.
Chest x-ray 09/25/2023: Reviewed,PA catheter in adequate position. Slightly worsening left basilar and retrocardiac opacity likely atelectasis/pleural effusion. Pulmonary vascular congestion improved.
Not bronchospastic on exam.
-
Acute on chronic heart failure with reduced ejection fraction
Status post right heart catheterization 09/21/2023:
1. Right dominant circulation with chronic total occlusion of the proximal RCA, collateralized by the left system.
3. Hypertensive emergency.
4. Acute congestive heart failure.
5. Severely elevated filling pressures (LVEDP = 25 mmHg, PCWP = 25 mmHg at 68.0 kg).
. Severe vasculopathy including moyamoya status post carotid artery bypass and recent aortoiliac angioplasty and stent placement.
-
Cardiology correspondence reviewed:
Echocardiogram: 09/22/2023 Mildly reduced left ventricular ejection fraction. Inferior wall and apical hypokinesis. LVEF 40%. No significant valvular disease.
Renal function is stable-nonoliguric.
Bumex drip discontinued yesterday. IV diuretics/oral diuretics restarted today.
Her weight is trending lower.
Creatinine/urinary output has been stable.
Electrolytes repleted
Cardizem on hold due to blood pressure between 140-160. Defer to cardiology titration.
Continue antiplatelet
Hopefully can discontinue PA catheter today.
-
Discussed with Nephrology continue hemodynamic support for now.
Diuretics
Follow renal follow
-
Heparin drip, follow Ptt, eventually to restart oral anticoagulants.
Monitor for bleeding.
-
Low-grade fevers-possibly aspiration pneumonitis. Resolved.
Chronic leukocytosis
Fevers improving, continue to monitor off antibiotics.
-
Hypoxemic respiratory failure: Currently on 5 L nasal cannula. Improved.
Not bronchospastic on exam
Encourage incentive spirometry
Once PA catheter is removed tomorrow hopefully increase physical activity.
Diuretics
Bronchodilators
-
Anemia noted. No evidence for bleeding per
Follow H&H
-
Glycemic control: Insulin as needed.
Target blood sugar 140-180
-
COPD without bronchospasm.
Continue Pulmicort twice a day
Will transition to Xopenex 3 times a day per
DuoNebs as needed. Avoid beta agonist as able.
No indication for systemic corticosteroids.
Restart outpatient medications once extubated
-
Tolerating diet.
Once PA catheter discontinued, physical therapy and Occupational Therapy.
-
Case discussed with cardiology and nephrology. Discussed with primary team as well.
-
Acute on chronic critical care statement: A total of 31 minutes of critical care time was provided for this patient today. This includes management of unstable vital signs, evaluation of the patient at bedside, reviewing the patient's pertinent
medical records including ventilator settings, arterial blood gases, radiographs, microbiology, laboratory evaluations and discussion with primary team, critical care nursing, and respiratory therapy.

Diagnostic Data
Chest X-ray: 09/07/2023-Small right and trace left pleural effusions with associated probable atelectasis, slightly progressed.
Chest X-Ray: 09/01/23- No acute cardiopulmonary process.
CT Scan: AP 06/25/23- IMPRESSION:
1. Advanced aortic atherosclerotic changes without aneurysmal dilation. Irregular mural thrombus along distal thoracic and abdominal aorta. Moderate stenosis of the infrarenal aorta.
2. High-grade stenosis of the proximal right common iliac artery. Moderate stenosis left common iliac artery. Left profunda femoral stenosis. Three-vessel runoff on the right and 2 vessel runoff on left.
3. Bilateral renal cortical scarring. Atrophic changes of the left kidney as compared with the right.
[facility] 04/09/23- CONCLUSIONS
1: Inferobasal akinesis with EF 54%
2: Single-vessel CAD (chronic total occlusion of the proximal RCA)
3. Recommend continued medical therapy with aspirin and high intensity statin
Echo 09/08/23:
Normal LV size with normal systolic function.
LVEF is 55% by Aguilar's method of discs..
RCA territory mild hypokinesis.
Mild concentric LVH.
Stage I diastolic dysfunction suggestive of abnormal relaxation.
Normal right ventricular size and function.
Mild mitral regurgitation.
Echo: 03/23/23- Normal biventricular size and systolic function without regional wall motion abnormality. Possible basal to mid inferior hypokinesis. Mild concentric left ventricular hypertrophy.
No significant valvular disease. Compared to previous echo 05/10/12, the possible basal inferior hypokinesis is new.
PFT's: 05/28/23- FVC was 2.06L or 58% predicted. FEV1 was 1.10L or 40% predicted. Ratio 53. Post FEV1 was 1.22L or 44% predicted, 11% change.
Lung volumes: TLC was 4.05L or 74% predicted. RV/TLC was 49%. Diffusion was 10.17 or 42% predicted. When adjusted for hemoglobin was unchanged.
Spirometry demonstrates severe obstruction. There was significant bronchodilator response in the FVC. Lung volumes demonstrate mild restriction. There is borderline air trapping. There is a moderate diffusion impairment.
Reports and relevant images were personally reviewed.
Subjective Dataa
Subjective Data
Date of Service:
Date of Service: September 25, 2023
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
Subjective:
Continues to report orthopnea.
Exertional shortness of breath. Some improvement but still persistent.
Denies any cough or phlegm production.
PA catheter remains in place
Review of Systems
General: Fever (n)
Cardiopulmonary: Dyspnea, Dyspnea on Exertion and Cough
GI: Abdominal Pain (n)
Objective Data
Data Reviewed
Vital Signs / I&O / Oxygen:
Vital Signs
Temp Pulse Resp BP Pulse Ox
98.9 F 96 23 147/86 95
09/25/23 07:25 09/25/23 09:45 09/25/23 09:45 09/25/23 09:30 09/25/23 09:45
Intake and Output
09/24/23 09/25/23 09/26/23
06:59 06:59 06:59
Intake Total 1755.7 / 2016.2 1076.0 / 1084.0 264 / 264
Output Total 4630 / 4780 1790 / 1825 125 / 125
Balance -2874.3 / -2763.8 -714.0 / -741.0 139 / 139
SaO2 [A/C] 93
SaO2 95
Nasal Cannula flow liters per 4
minute
Physical Exam
General: Respiratory Distress (n)
HEENT: Normocephalic
Cardiovascular: S1-S2
Respiratory: Wheeze (n), Crackles (bases), Non-Labored Respirations and Other (Left base diminished sounds.)
GI: Soft and Non Distended
Neurology: Awake and Oriented
Skin: Warm
Labs/Micro/Reports
Lab Data
09/25/23 03:07
09/25/23 03:07
Laboratory Results
09/25/23 09/25/23
03:07 06:00
APTT 126.3 H
pH Cancelled
pCO2 Cancelled
pO2 Cancelled
HCO3 Cancelled
O2 Delivery Level Cancelled
--- NOTE | 2023-09-25 10:48 | CHAP ---
Nurse Prn request relayed to Fr. Cruz who is on-call today.
[2023-09-25 10:58] LABS: APTT > 200 Sec (23.4-35.0)
--- NOTE | 2023-09-25 11:00 | PTCARENOTE ---
chanell PTT, spoke with lab regarding prior critical value.
--- NOTE | 2023-09-25 11:24 | CM ---
CM following re: discharge planning.
Discussed in rounds, reviewed pt's chart, met with pt. Per Rounds meeting, pt uses Bi-pap at night, currently requires 5L midflow NC of O2. Pt stated she feels she will need home Oxygen and pt was notified that pt will have all necessary DME she
needs prior to discharge.
PT and PT evaluations noted - home PT vs SNF recommended. CM discussed it with pt and she stated she preferred to return back home with home PT. Pt stated she had [facility] before admission to and she preferred to have [facility] again. Pt's
supports pt's plan.
Per [facility] liaison, pt is active with [facility] and [facility] will resume VN services upon the discharge.
Please fax discharge instruction at discharge to [facility] at [phone]
D/C plan: home with [facility] and family support. to transport at discharge.
CM will follow with discharge plan updates as hospitalization progresses.
[2023-09-25 11:58] LABS: APTT 36.7 Sec (23.4-35.0)
[2023-09-25] MEDS: XOPENEX 0.63 MG INHALANT SOLUTION 0.630000000000000004 MG INH ×2 (12:27→20:20)
[2023-09-25] MEDS: XANAX 0.25 MG PO (12:28)
--- NOTE | 2023-09-25 12:43 | PTCARENOTE ---
Gave IV lasix and following output. PTT assessment from flushed cordis was >200, rechecked PTT level from peripheral blood draw. titrated heparin gtt based on peripheral blood draw PTT. Bathed and assisted in repositioning patient. Still awaiting
cardiology to potentially pull the swan rhona catheter.
--- NOTE | 2023-09-25 13:41 | PTCARENOTE ---
Dr. Edwards in at bedside, discontinued [place]-Yovany, will hold heparin gtt for one hour.
[2023-09-25] MEDS: FERRLECIT 110 MG IV (13:49)
--- NOTE | 2023-09-25 16:46 | PTCARENOTE ---
Gave patient additional dose of lasix. will keep syed in one more day per Renal and export manager.
--- NOTE | 2023-09-25 19:02 | PTCARENOTE ---
pt received from previous rn- aox4, nsr with bbb on monitor, on 4Lnc, remains with scattered crackles, denies increased wob. resting comfortably in bed, family at bedside. education provided- verbalized understanding. rij dressing cdi, syed remains
draining cyu. able to move and reposition self. poc discussed for this shift- verbalized understanding. all safety precautions in place, call ríos within reach.
[2023-09-25] MEDS: CYMBALTA DELAYED RELEASE 30 MG PO (20:24)
[2023-09-25] MEDS: ELIQUIS 5 MG PO (20:24)
[2023-09-25] MEDS: NEURONTIN 300 MG PO (20:24)
--- NOTE | 2023-09-25 23:54 | PTCARENOTE ---
assessment unchanged. pt resting comfortably at this time. nsr with bbb and pvcs on monitor. remains on 4Lnc.
[2023-09-26] VITALS (24 sets, daily range): BP systolic 37–153; BP diastolic 13–111; PULSE 97; O2SAT 93; BMI 21.8
[2023-09-26] MEDS: XANAX 0.25 MG PO ×2 (00:18→21:11)
[2023-09-26] MEDS: SYNTHROID 100 MCG PO (04:26)
[2023-09-26 05:07] LABS: Hematocrit 27.4 % (37.0-47.0); Mean Corp Hgb Conc. 32.8 g/dL (33.0-37.0); Mean Corpuscular Hgb 29.6 pg (27.0-31.0); Mean Corpuscular Volume 90.1 fL (81.0-99.0); Mean Platelet Volume 10.5 fL (7.4-10.4); Platelet Count 378 10^3/uL (130-400); Red Blood Cell Count 3.04 10^6/uL (4.20-5.40); Red Cell Dist. Width 13.3 % (11.5-14.5); White Blood Cell Count 14.7 10^3/uL (4.8-10.8)
[2023-09-26 05:23] LABS: INR 1.36; PT 16.6 Sec (11.4-14.6)
[2023-09-26 05:24] LABS: APTT 49.4 Sec (23.4-35.0)
[2023-09-26 05:35] LABS: Blood Urea Nitrogen 45 mg/dl (7-17); Calcium 9.6 mg/dl (8.4-10.2); Carbon Dioxide 26 mmol/L (22-30); Chloride 96 mmol/L (98-107); Estimated Creatinine Clearance 22 ml/min; Glucose 137 mg/dl (70-99); Potassium 4.3 mmol/L (3.5-5.1); Sodium 135 mmol/L (135-145); eGFR 21.08
--- NOTE | 2023-09-26 05:41 | PTCARENOTE ---
pt oob to chair. resting comfortably, remains on nc. assessment unchanged.
[2023-09-26] MEDS: PULMICORT 0.5 MG INH ×2 (07:31→19:26)
[2023-09-26] MEDS: XOPENEX 0.63 MG INHALANT SOLUTION 0.630000000000000004 MG INH ×3 (07:31→19:26)
--- NOTE | 2023-09-26 07:51 | W.PN.CD ---
Today's Communication / Plan
-
-Continue diuresis
-Watch for creatinine with diuresis.
Impression / Plan
-
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
HFpEF and chest pressure, prompting cardiac catheterization, at which time she went into flash pulmonary edema from hypertensive crisis, requiring intubation and aggressive BP management.
#HFmEF/Mixed ischemic/non-ischemic cardiomyopathy
-Acute.
-Likely due to decompensated HF + hypertensive crisis.
-Central line is removed. JVD still noted.
-Echo shows new cardiomyopathy (LVEF 40%) with regional wall motion abnormality (known RCA territory, now terminal LAD territory) but no significant left sided CAD on cath.
-GDMT will be extremely difficult given restrictive BP
-[place]-Yovany removed -pulmonary capillary wedge pressure prior to removal was 25. Still needs diuresis.
-Persistent oxygen requirement raises the possibility of primary pulmonary process (known COPD). This may need to be reassessed with formal PFTs/spirometry. Veno-occlusive disease?
-Continue IV diuresis with goal of >0.5 L negative per day.
#CAD/Elevated troponin (non-MT troponin elevation)
-Chronic, stable.
-Cardiac catheterization shows no new CAD.
-Troponin elevation is acute and up to 0.255, but is NOT ACS.
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
#CKD
-Chronic.
-Creatinine stable at 2.5 today. Was 2.2 yesterday.
-Monitor with diuresis.
#PAD/aortic atherosclerosis
-Recent infrarenal aorta/iliac revascularization for potentially atheroembolism (AFX 25-90/16-30, 28-95 proximal extension).
-CTA post procedure comments on residual mural thrombus in descending thoracic aorta.
-Dr. Brooks saw in ER and reports vascular issues stable.
-Apixaban restarted on 09/25/2023
#COPD
-Chronic.
-Bronchodilators started.
#Moyamoya disease
-Chronic, stable.
-History of carotid bypass.
-Previously recommended SBP of 140-160 to maintain cerebral perfusion (source?).
Critical Care Time = 32 minutes.
Subjective/Interval History:
Bumetanide gtt discontinued yesterday.
Furosemide 40 mg PO added by nephrology.
Weight down 0.6 kg from yesterday.
Afebrile since @ 19:15.
Remains on 3-4 LNC.
I wedged the catheter, getting a PCWP 0f 24 mmHg (equal to PADP). RA pressure around 5 mmHg.
DATA:
TTE, 09/22/2023:
CONCLUSIONS
Mildly reduced left ventricular systolic function.
Inferior wall and apical hypokinesis.
LV ejection fraction is 40% visually and 44% by volumetric assessment.
No significant valvular disease.
Compared to the images from 09/08/2023, LVEF has decreased from 55% to 40 to
45%. Additionally, apical hypokinesis is seen in addition to the RCA
hypokinesis.
Cardiac catheterization, 09/21/2023:
CONCLUSIONS:
1. Right dominant circulation with chronic total occlusion of the proximal RCA, collateralized by the left system.
2. Acute hypoxic respiratory failure requiring intubation and mechanical ventilation.
3. Hypertensive emergency.
4. Acute congestive heart failure.
5. Severely elevated filling pressures (LVEDP = 25 mmHg, PCWP = 25 mmHg at 68.0 kg).
6. Severe vasculopathy including moyamoya status post carotid artery bypass and recent aortoiliac angioplasty and stent placement.
CTA, Chest/Abdomen/Pelvis, 09/03/2023:
IMPRESSION:
Placement of abdominal aortic and bilateral proximal common iliac artery endostent in the interval since prior study, patent.
Mural thrombus again seen along the posterior left side of the descending thoracic aorta.
Additional findings, as detailed above.
CTA Abdomen/Pelvis with runoff, 06/25/2023:
IMPRESSION:
1. Advanced aortic atherosclerotic changes without aneurysmal dilation. Irregular mural thrombus along distal thoracic and abdominal aorta. Moderate stenosis of the infrarenal aorta.
2. High-grade stenosis of the proximal right common iliac artery. Moderate stenosis left common iliac artery. Left profunda femoral stenosis. Three-vessel runoff on the right and 2 vessel runoff on the left.
3. Bilateral renal cortical scarring. Atrophic changes of the left kidney as compared with the right.
Physical Exam
Vital Signs/Labs
Vital Signs
Temp Pulse Resp BP Pulse Ox
99.0 F 102 20 153/90 95
09/26/23 03:57 09/26/23 07:32 09/26/23 07:32 09/26/23 06:00 09/26/23 07:32
09/25/23 09/26/23 09/27/23
06:59 06:59 06:59
Actual Weight 63.2 kg 63.1 kg
09/26/23 04:25
09/26/23 04:25
PT 16.6 Sec (11.4-14.6) H 09/26/23 04:26
INR 1.36 09/26/23 04:26
APTT 49.4 Sec (23.4-35.0) H 09/26/23 04:26
Magnesium 1.9 mg/dl (1.6-2.3) 09/24/23 05:31
Triglycerides 143 mg/dl (10-149) 09/22/23 03:57
LDL Cholesterol, Calc 46 mg/dl 09/22/23 03:57
VLDL Cholesterol, Calc 28 mg/dl (0-30) 09/22/23 03:57
HDL Cholesterol 44 mg/dl 09/22/23 03:57
09/21/23
14:07
Ecm-X-Wlwagxygend Pept > 48505
Physical Exam
Constitutional: No acute distress and Comfortable
EENT: Anicteric and Moist mucous membranes
Cardiovascular: Rhythm & rate is regular, Pedal edema is absent, JVD present and Systolic murmur present
Respiratory: Respiratory effort normal, Lungs clear to auscul. and Wheeze Absent
GI: Soft, Non tender and Normal bowel sounds
Neuro/Psych: Alert, Oriented and AO x 3
Other: Skin and Cath Site
Data Reviewed
-
Date of Service: September 26, 2023
Medical Decision Making: Reviewed Test Results, Independent Historian Assessment and Test Interpretation
EKG: Tracing Personally Visualized and interpreted
Echo: Report Reviewed by me
Labs: Labs Reviewed by me
Old Records: Reviewed
Critical Care Time (in minutes): 35
--- NOTE | 2023-09-26 07:57 | W.PN.NEPH.PH ---
Today's Communication / Plan
-
Maintain IV Lasix 40 mg IV twice daily
Okay to discontinue Syed
Assessment/Plan
-
Impression:
Chest pain shortness of breath: Congestive heart failure decompensation/non-ST elevation [place]
Chronic kidney disease stage IV with baseline creatinine of 2
Hypertension urgency
Aorta iliac revascularization following potential atheroembolism August 2023
COPD
Moyamoya disease/complex peripheral arterial disease
Intubation
echo EF 40-45%, WMA
Plan:
Kidney function climbing to 2.5 following diuresis
maintain FR for hyponatremia
pulmonary capillary wedge pressure of 25 following cardiac cath (no intervention performed) at wt of 65.7kg 09/20
Maintain IV Lasix
BP stable off levo
Fe def noted with Fe sat only 8%, cont IV iron 05/20, prn transfusion hgb better with diuresis
follow labs
d/w pt
-
-
Date of Service: September 26, 2023
CC / HPI / ROS
-
Chief Complaint:
CKD
History of Present Illness:
cr up to 2.5
sodium at 135r
s/p extubation 09/21 on mid flow O2 5lit
hb better at 8.3
Hemodynamically stable
Review of Systems:
sob better
no cp, or n/v
non oliguric via syed
Labs
-
Labs:
WBC 14.7 10^3/uL (4.8-10.8) H 09/26/23 04:25
RBC 3.04 10^6/uL (4.20-5.40) L 09/26/23 04:25
Hgb 9.0 g/dL (12.0-16.0) L 09/26/23 04:25
Hct 27.4 % (37.0-47.0) L 09/26/23 04:25
Plt Count 378 10^3/uL (130-400) 09/26/23 04:25
Sodium 135 mmol/L (135-145) 09/26/23 04:25
Potassium 4.3 mmol/L (3.5-5.1) 09/26/23 04:25
Chloride 96 mmol/L (98-107) L 09/26/23 04:25
Carbon Dioxide 26 mmol/L (22-30) 09/26/23 04:25
BUN 45 mg/dl (7-17) H 09/26/23 04:25
Creatinine 2.5 mg/dL (0.6-1.0) H 09/26/23 04:25
eGFR 21.08 09/26/23 04:25
Glucose 137 mg/dl (70-99) H 09/26/23 04:25
Calcium 9.6 mg/dl (8.4-10.2) 09/26/23 04:25
Phosphorus 5.0 mg/dl (2.5-4.5) H 09/21/23 19:10
Vrf-R-Xhtisaxyllq Pept > 02455 pg/ml 09/21/23 14:07
Albumin 3.7 g/dl (3.5-5.0) 09/21/23 14:07
Physical Exam
-
Vital Signs:
Vital Signs
Temp Pulse Resp BP Pulse Ox
99.0 F 102 20 153/90 95
09/26/23 03:57 09/26/23 07:32 09/26/23 07:32 09/26/23 06:00 09/26/23 07:32
Cardiovascular:: Regular rate and rhythm
Respiratory:: Bilateral: Coarse
Lung Excursion:: Normal
Abdomen:: Nontender and Soft
Bowel Sounds:: Normal
Extremity Edema:: None: Bilateral:
Syed Catheter: Yes
--- NOTE | 2023-09-26 08:08 | W.PN.HOSP.TC ---
Today's Communication/Plan
-
IV Diuresis
Appreciate consultants
PT/OT
Assessment / Plan
Assessment / Plan
63-year-old female with past medical history of PAD with recent aortoiliac stent, CAD, CKD IV, moyamoya syndrome, hypothyroidism, hyperlipidemia, hypertension, ovarian cancer, TIA, COPD, brain bypass x 3 came to the hospital with chest pain and
shortness of breath. EKG with new ST depressions. Initial troponin is 0.215 with a proBNP greater than 27,000, creatinine 2.0 (baseline). She was taken urgently to cardiac cath complicated by acute resp failure requiring intubation; shown to have
severely elevated filling pressures.
.
Acute hypoxemic respiratory failure secondary pulmonary edema requiring intubation mechanical ventilation, elevated filling pressures on the catheterization
Hypertensive emergency with flash pulmonary edema
Acute on chronic congestive heart failure with preserved ejection fraction
-cardiac cath without significant CAD;+ elevated pressures
-required intubation in sawyer cork slabs 09/20; s/p extubation on 09/21
-Bumex gtt stopped per cardiology 09/23
-continue IV lasix
-[place]-Yovany catheter now out
-Due to her history of moyamoya disease, blood pressure must be kept above 140, between 140 and 160; stop MANAGER OF BUSINESS Diltiazem
-continue aspirin/statin
Hypokalemia
-repleted
# Chronic leukocytosis
Fever 09/21, likely 2/2 aspiration pneumonitis
-afebrile overnight and does not appear infected since
-WBC improving
# Normocytic anemia
-No active bleeding
-Continue to trend, stable
-iron studies - anemia inflammation
#Acute kidney injury on CKD stage IIIb
-creatinine up but patient improving with diuresis; down on O2
-continue IV lasix per renal
-appreciate renal consult
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
-bilaterally s/p diagnostic arteriogram, AFX stent graft placement, balloon angioplasty 09/01/23
-MANAGER OF BUSINESS Eliquis resumed
#Livedo reticularis
-vascular following; no acute issues from vascular standpoint
#essential HTN
-Diltiazem off, BP 150's
-F/U cards recs, consider resuming lower dose
#anxiety
-duloxetine continued
#hypothyroidism
-levothyroxine continued
# ex Smoker
#COPD
-nebs prn for sob/wheezing
#Mixed hyperlipidemia
-statin continued
#Moyamoya syndrome, 3 surgical interventions
#DVT prophylaxis - Eliquis
#CODE status
-full code
reorder PT/OT today
Anticipated Discharge: > 48 hours
Subjective/Interval History
-
Date of Service: September 26, 2023
remains short of breath but oxygen needs improving
no chest pain
Objective Data
-
Labs:
Laboratory Results
09/25/23 09/26/23 09/26/23
18:30 04:25 04:26
WBC 14.7 H
Hgb 9.0 L
Hct 27.4 L
Plt Count 378
PT 16.6 H
INR 1.36
APTT Cancelled 49.4 H
Sodium 135
Potassium 4.3
Chloride 96 L
Carbon Dioxide 26
BUN 45 H
Creatinine 2.5 H
Glucose 137 H
Calcium 9.6
Vital Signs:
Vital Signs
Temp Pulse Resp BP Pulse Ox
99.0 F 102 20 153/90 95
09/26/23 03:57 09/26/23 07:32 09/26/23 07:32 09/26/23 06:00 09/26/23 07:32
I&O
09/25/23 09/26/23 09/27/23
06:59 06:59 06:59
Intake Total 1076.0 / 1084.0 1340 / 1340
Output Total 1790 / 1825 1805 / 1805
Balance -714.0 / -741.0 -465 / -465
Review of Systems
-
History Source: Patient
All other systems: Reviewed and negative
Physical Exam
-
General: No Apparent Distress
HEENT: PERRLA
Respiratory: Rales
Cardiac: Regular Rhythm and S1/S2
GI: Soft and Nontender
Musculoskeletal: No Edema
Skin: Warm and Dry; Negative Rash
Neuro: AO x 3
Psych: Calm
Data Reviewed
-
Diagnostic Radiology: Report Reviewed by me
Labs: Labs Reviewed by me
[2023-09-26] MEDS: LOW STRENGTH ASPIRIN 81 MG PO (09:00)
[2023-09-26] MEDS: LIPITOR 80 MG PO (09:00)
[2023-09-26] MEDS: ELIQUIS 5 MG PO ×2 (09:00→19:55)
[2023-09-26] MEDS: VITAMIN D3 (cholecalciferol) 50 MCG PO (09:00)
[2023-09-26] MEDS: SENOKOT-S 1 TABLET PO ×2 (09:00→21:11)
[2023-09-26] MEDS: LASIX 40 MG IV ×2 (09:01→16:42)
--- NOTE | 2023-09-26 09:08 | W.PN.INTV ---
Today's Communication / Plan
Recommendations
Discontinue Portillo
Increase activity with physical therapy
Continue diuresis
Wean off oxygen
Continue nebulizers
Incentive spirometry was encouraged
Continue with cardiac management
Anticoagulation
Transfer to IMU
Assessment
-
Acute hypoxemic respiratory failure due to pulmonary edema requiring intubation and mechanical ventilation-elevated filling pressures on right heart catheterization 09/21/2023.
Acute on chronic heart failure with preserved ejection fraction/non-ST elevation myocardial infarction? Type II
Chest x-ray 09/21/2023: Reviewed showed mild cardiomegaly. Mild pulmonary vascular congestion. Small right pleural effusion.
Hypertensive urgency
Chronic anemia
Chronic leukocytosis
Conditions present prior admission:
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
COPD
Moderate obstruction with positive/significant bronchodilator response, follows Dr White
Chronic cough noted
Upper airway cough syndrome
Moderate cigarette smoker (10-19 cigs/day) with longstanding tobacco abuse with [id number] history
TIA, recurrent
Ovarian cancer diagnosed age (no chemo, RT)
Hypertension
Hypercholesterolemia
Hypothyroidism
Moyamoya disease
CAD with occluded RCA
CKD 3/4
Vulva cancer (no RT, chemotherapy)
PAD
Appendectomy 02/1992
Hysterectomy, BSO, omentectomy 02/1992
Partial vulvectomy 2009
Brain bypass x3
Appendectomy
Plan:
Clinically improved 09/26/2023.
Now off vasopressors
On 2 L of supplemental oxygen
PA catheter has been discontinued 09/25/2023
Responding to diuresis
-
Extubated 09/22/2023.
2 L of supplemental oxygen pulse ox 97%. Continue to wean off as able.
Chest x-ray 09/25/2023: Reviewed,PA catheter in adequate position. Slightly worsening left basilar and retrocardiac opacity likely atelectasis/pleural effusion. Pulmonary vascular congestion improved.
Not bronchospastic on exam.
-
Acute on chronic heart failure with reduced ejection fraction
Status post right heart catheterization 09/21/2023:
1. Right dominant circulation with chronic total occlusion of the proximal RCA, collateralized by the left system.
3. Hypertensive emergency.
4. Acute congestive heart failure.
5. Severely elevated filling pressures (LVEDP = 25 mmHg, PCWP = 25 mmHg at 68.0 kg).
. Severe vasculopathy including moyamoya status post carotid artery bypass and recent aortoiliac angioplasty and stent placement.
-
Cardiology correspondence reviewed:
Echocardiogram: 09/22/2023 Mildly reduced left ventricular ejection fraction. Inferior wall and apical hypokinesis. LVEF 40%. No significant valvular disease.
Renal function is stable-nonoliguric.
Status post Bumex drip
On twice daily IV Lasix, responding well.
Her weight is trending lower.
Creatinine/urinary output has been stable.
Electrolytes repleted
Antihypertensive per cardiology.
Continue antiplatelet
-
Discussed with Nephrology continue hemodynamic support for now.
Diuretics IV will continue.
Follow renal follow
-
Back on oral anticoagulants.
Monitor for bleeding.
-
Low-grade fevers-possibly aspiration pneumonitis. Resolved.
Chronic leukocytosis
Fevers improving, continue to monitor off antibiotics.
-
Hypoxemic respiratory failure: Continues to improve, down to 2 L supplemental oxygen.
Not bronchospastic on exam
Encourage incentive spirometry
Increase physical activity. Physical therapy has been ordered.
Diuretics
Bronchodilators
-
Anemia noted. No evidence for bleeding.
Follow H&H
-
Glycemic control: Insulin as needed.
Target blood sugar 140-180
-
COPD without bronchospasm.
Continue Pulmicort twice a day
Will transition to Xopenex 3 times a day per
DuoNebs as needed. Avoid beta agonist as able.
No indication for systemic corticosteroids. Restart outpatient inhalers upon discharge
Eventual outpatient follow-up with Dr. Choudhury
-
Tolerating diet.
-
Case discussed with cardiology and nephrology. Discussed with primary team as well.
-
Clinically improved. Will transfer to intermediate care unit.
Critical care team will sign off. Pulmonary will continue to follow briefly.

Diagnostic Data
Chest X-ray: 09/07/2023-Small right and trace left pleural effusions with associated probable atelectasis, slightly progressed.
Chest X-Ray: 09/01/23- No acute cardiopulmonary process.
CT Scan: AP 06/25/23- IMPRESSION:
1. Advanced aortic atherosclerotic changes without aneurysmal dilation. Irregular mural thrombus along distal thoracic and abdominal aorta. Moderate stenosis of the infrarenal aorta.
2. High-grade stenosis of the proximal right common iliac artery. Moderate stenosis left common iliac artery. Left profunda femoral stenosis. Three-vessel runoff on the right and 2 vessel runoff on left.
3. Bilateral renal cortical scarring. Atrophic changes of the left kidney as compared with the right.
[facility] 04/09/23- CONCLUSIONS
1: Inferobasal akinesis with EF 54%
2: Single-vessel CAD (chronic total occlusion of the proximal RCA)
3. Recommend continued medical therapy with aspirin and high intensity statin
Echo 09/08/23:
Normal LV size with normal systolic function.
LVEF is 55% by Aguilar's method of discs..
RCA territory mild hypokinesis.
Mild concentric LVH.
Stage I diastolic dysfunction suggestive of abnormal relaxation.
Normal right ventricular size and function.
Mild mitral regurgitation.
Echo: 03/23/23- Normal biventricular size and systolic function without regional wall motion abnormality. Possible basal to mid inferior hypokinesis. Mild concentric left ventricular hypertrophy.
No significant valvular disease. Compared to previous echo 05/10/12, the possible basal inferior hypokinesis is new.
PFT's: 05/28/23- FVC was 2.06L or 58% predicted. FEV1 was 1.10L or 40% predicted. Ratio 53. Post FEV1 was 1.22L or 44% predicted, 11% change.
Lung volumes: TLC was 4.05L or 74% predicted. RV/TLC was 49%. Diffusion was 10.17 or 42% predicted. When adjusted for hemoglobin was unchanged.
Spirometry demonstrates severe obstruction. There was significant bronchodilator response in the FVC. Lung volumes demonstrate mild restriction. There is borderline air trapping. There is a moderate diffusion impairment.
Reports and relevant images were personally reviewed.
Subjective Dataa
Subjective Data
Date of Service:
Date of Service: September 26, 2023
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
Subjective:
No new complaints overnight
Denies cough or phlegm production
Denies lightheadedness
Feels debilitated
Review of Systems
General: Fever (n)
Cardiopulmonary: Dyspnea, Dyspnea on Exertion, Cough (n), Sputum Production (n) and Wheezing (n)
GI: Abdominal Pain (n), Nausea (n) and Vomiting (n)
Neuro: Headache (n)
Objective Data
Data Reviewed
Vital Signs / I&O / Oxygen:
Vital Signs
Temp Pulse Resp BP Pulse Ox
99.0 F 98 20 129/111 95
09/26/23 03:57 09/26/23 09:01 06/15/24 07:32 09/26/23 09:01 09/26/23 07:32
Intake and Output
09/25/23 09/26/23 09/27/23
06:59 06:59 06:59
Intake Total 1076.0 / 1084.0 1340 / 1340
Output Total 1790 / 1825 1805 / 1805
Balance -714.0 / -741.0 -465 / -465
SaO2 [A/C] 93
SaO2 95
Nasal Cannula flow liters per 4
minute
Physical Exam
General: Respiratory Distress (n)
HEENT: Normocephalic
Cardiovascular: S1-S2
Respiratory: Wheeze (n), Crackles (bases), Non-Labored Respirations and Other (Good air movement.)
GI: Soft and Non Distended
Neurology: Awake and Oriented
Skin: Warm
Labs/Micro/Reports
Lab Data
09/26/23 04:25
09/26/23 04:25
Laboratory Results
09/25/23 09/25/23 09/25/23
10:23 11:16 18:30
PT
INR
APTT > 200 H* 36.7 H Cancelled
09/26/23
04:26
PT 16.6 H
INR 1.36
APTT 49.4 H
--- NOTE | 2023-09-26 10:11 | PTCARENOTE ---
pt alert and oriented, oob this am , NSR on monitor ,BP 135/88 , 100% sat on 4 LNC , pt tolerating diet , pt to have syed cath DC , she is weaning down on her O2 now currently on 2L with sat of 98% , at bedside , pt is now IMU level of care
[2023-09-26] MEDS: DULCOLAX 5 MG PO (11:50)
--- NOTE | 2023-09-26 11:56 | PTCARENOTE ---
Resumed care of pt at 1100. Pt AA0x3. SR on monitor. BP and HR stable. Pt on room air and was going to 86% while sleeping. Placed pt on 2L and is 95%. Pt just had syed removed. Advised patient to ring for assistance to use the bathroom. Also
encouraged pt to use IS as lungs are decreased with crackles. Denies any pain at this time.
--- NOTE | 2023-09-26 12:21 | PTCARENOTE ---
Vitals unable to be verified prior to assuming care of patient at 11am.
[2023-09-26] MEDS: MIRALAX 17 GRAMS PO (13:18)
[2023-09-26] MEDS: FERRLECIT 110 MG IV (13:19)
--- NOTE | 2023-09-26 14:17 | PTCARENOTE ---
Pt transferred to IMU. Verbal report given to Anca DEMARCO.
--- NOTE | 2023-09-26 14:38 | PTCARENOTE ---
Pt rec'd into IMU [id number] as transfer from ICU. 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 Oriented to room, left fa PIV dc'd at pt's request due to pain and inability to flush. Meds and assessment as documented.
Call ríos in reach.
--- NOTE | 2023-09-26 18:15 | PTCARENOTE ---
Pt desatting to low-mid 80s with dozing off, 1L nasal cannula added at this time, sat now 90%. Pt in agreement to try 1L, verbalized understanding to take deep breaths and continue using IS while awake.
[2023-09-26] MEDS: CYMBALTA DELAYED RELEASE 30 MG PO (21:11)
[2023-09-27] VITALS (13 sets, daily range): BP systolic 130–168; BP diastolic 74–94; PULSE 95; BMI 21.4
--- NOTE | 2023-09-27 01:13 | PTCARENOTE ---
Pt received from previous shift in bed. AAOx3 pleasant. Telemetry = SR w/PVCs. Full physical assessment documented (refer to worklist). Bilateral groin sites scabbed AMRIT. R radial puncture scabbed AMRIT. Encouraged to watch assigned HF videos,
pt verbalizes understanding and states she will watch in am. OOB w/assist x1. Offers no complaints. Attempted to wean O2, pt desatted to mid 80s on RA. O2 replaced - 93% on 1L. #22 RW INT patent. Call ríos within reach. Plan of care ongoing.
[2023-09-27] MEDS: DUONEB 3 ML INH (02:34)
[2023-09-27 04:55] LABS: Hematocrit 25.1 % (37.0-47.0); Hemoglobin 8.5 g/dL (12.0-16.0); Mean Corp Hgb Conc. 33.9 g/dL (33.0-37.0); Mean Corpuscular Hgb 29.5 pg (27.0-31.0); Mean Corpuscular Volume 87.2 fL (81.0-99.0); Platelet Count 370 10^3/uL (130-400); Red Blood Cell Count 2.88 10^6/uL (4.20-5.40); Red Cell Dist. Width 13.7 % (11.5-14.5); White Blood Cell Count 15.1 10^3/uL (4.8-10.8)
[2023-09-27 05:27] LABS: Blood Urea Nitrogen 46 mg/dl (7-17); Calcium 9.2 mg/dl (8.4-10.2); Carbon Dioxide 28 mmol/L (22-30); Chloride 94 mmol/L (98-107); Estimated Creatinine Clearance 22 ml/min; Glucose 154 mg/dl (70-99); Potassium 3.6 mmol/L (3.5-5.1); Sodium 134 mmol/L (135-145); eGFR 21.08
[2023-09-27] MEDS: SYNTHROID 100 MCG PO (06:12)
[2023-09-27] MEDS: PULMICORT 0.5 MG INH ×2 (07:28→20:11)
[2023-09-27] MEDS: XOPENEX 0.63 MG INHALANT SOLUTION 0.630000000000000004 MG INH ×3 (07:28→20:11)
--- NOTE | 2023-09-27 07:33 | W.PN.CD ---
Today's Communication / Plan
-
-Continue diuresis. Creatinine is tolerating current level of diuresis.
Impression / Plan
-
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
HFpEF and chest pressure, prompting cardiac catheterization, at which time she went into flash pulmonary edema from hypertensive crisis, requiring intubation and aggressive BP management.
#HFmEF/Mixed ischemic/non-ischemic cardiomyopathy
-Acute on chronic.
-Likely due to decompensated HF + hypertensive crisis.
-Central line is removed. JVD still noted.
-Echo shows new cardiomyopathy (LVEF 40%) with regional wall motion abnormality (known RCA territory, now terminal LAD territory) but no significant left sided CAD on cath.
-GDMT will be extremely difficult given restrictive BP
-[place]-Yovany removed -pulmonary capillary wedge pressure prior to removal was 25. Still needs diuresis.
-Persistent oxygen requirement raises the possibility of primary pulmonary process (known COPD). This may need to be reassessed with formal PFTs/spirometry. Veno-occlusive disease?
-Continue IV diuresis with goal of >0.5 L negative per day.
#CAD/Elevated troponin (non-DC troponin elevation)
-Chronic, stable.
-Cardiac catheterization shows no new CAD.
-Troponin elevation is acute and up to 0.255, but is NOT ACS.
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
#CKD
-Chronic.
-Creatinine stable at 2.5 today. Was 2.5 yesterday. (Baseline is 2.1)
-Monitor with diuresis.
#PAD/aortic atherosclerosis
-Recent infrarenal aorta/iliac revascularization for potentially atheroembolism (AFX 25-90/16-30, 28-95 proximal extension).
-CTA post procedure comments on residual mural thrombus in descending thoracic aorta.
-Dr. Brooks saw in ER and reports vascular issues stable.
-Apixaban restarted on 09/25/2023
#COPD
-Chronic.
-Bronchodilators started.
#Moyamoya disease
-Chronic, stable.
-History of carotid bypass.
-Previously recommended SBP of 140-160 to maintain cerebral perfusion (source?).
Subjective/Interval History:
Bumetanide gtt discontinued yesterday.
Furosemide 40 mg PO added by nephrology.
Weight down 0.6 kg from yesterday.
Afebrile since @ 19:15.
Remains on 3-4 LNC.
I wedged the catheter, getting a PCWP 0f 24 mmHg (equal to PADP). RA pressure around 5 mmHg.
DATA:
TTE, 09/22/2023:
CONCLUSIONS
Mildly reduced left ventricular systolic function.
Inferior wall and apical hypokinesis.
LV ejection fraction is 40% visually and 44% by volumetric assessment.
No significant valvular disease.
Compared to the images from 09/08/2023, LVEF has decreased from 55% to 40 to
45%. Additionally, apical hypokinesis is seen in addition to the RCA
hypokinesis.
Cardiac catheterization, 09/21/2023:
CONCLUSIONS:
1. Right dominant circulation with chronic total occlusion of the proximal RCA, collateralized by the left system.
2. Acute hypoxic respiratory failure requiring intubation and mechanical ventilation.
3. Hypertensive emergency.
4. Acute congestive heart failure.
5. Severely elevated filling pressures (LVEDP = 25 mmHg, PCWP = 25 mmHg at 68.0 kg).
6. Severe vasculopathy including moyamoya status post carotid artery bypass and recent aortoiliac angioplasty and stent placement.
CTA, Chest/Abdomen/Pelvis, 09/03/2023:
IMPRESSION:
Placement of abdominal aortic and bilateral proximal common iliac artery endostent in the interval since prior study, patent.
Mural thrombus again seen along the posterior left side of the descending thoracic aorta.
Additional findings, as detailed above.
CTA Abdomen/Pelvis with runoff, 06/25/2023:
IMPRESSION:
1. Advanced aortic atherosclerotic changes without aneurysmal dilation. Irregular mural thrombus along distal thoracic and abdominal aorta. Moderate stenosis of the infrarenal aorta.
2. High-grade stenosis of the proximal right common iliac artery. Moderate stenosis left common iliac artery. Left profunda femoral stenosis. Three-vessel runoff on the right and 2 vessel runoff on the left.
3. Bilateral renal cortical scarring. Atrophic changes of the left kidney as compared with the right.
Physical Exam
Vital Signs/Labs
Vital Signs
Temp Pulse Resp BP Pulse Ox
98.7 F 89 18 143/79 93
09/27/23 03:00 09/27/23 07:31 09/27/23 07:31 09/27/23 06:00 09/27/23 07:31
09/26/23 09/27/23 09/28/23
06:59 06:59 06:59
Actual Weight 63.1 kg 61.9 kg
09/27/23 04:36
09/27/23 04:36
PT 16.6 Sec (11.4-14.6) H 09/26/23 04:26
INR 1.36 09/26/23 04:26
APTT 49.4 Sec (23.4-35.0) H 09/26/23 04:26
Magnesium 1.9 mg/dl (1.6-2.3) 09/24/23 05:31
Triglycerides 143 mg/dl (10-149) 09/22/23 03:57
LDL Cholesterol, Calc 46 mg/dl 09/22/23 03:57
VLDL Cholesterol, Calc 28 mg/dl (0-30) 09/22/23 03:57
HDL Cholesterol 44 mg/dl 09/22/23 03:57
09/21/23
14:07
Qyn-W-Aejyfmcglrf Pept > 52534
Physical Exam
Constitutional: No acute distress and Comfortable
EENT: Anicteric and Moist mucous membranes
Cardiovascular: Rhythm & rate is regular, Pedal edema is absent and JVD pressure is normal
Respiratory: Respiratory effort normal, Wheeze Absent and Crackles Absent
GI: Soft, Non tender and Normal bowel sounds
Neuro/Psych: Alert, Oriented and AO x 3
Data Reviewed
-
Date of Service: September 27, 2023
Medical Decision Making: Reviewed Test Results and Test Interpretation
EKG: Tracing Personally Visualized and interpreted
Echo: Report Reviewed by me
Labs: Labs Reviewed by me
Old Records: Reviewed
--- NOTE | 2023-09-27 08:20 | W.PN.HOSP.TC ---
Today's Communication/Plan
-
diuresis per cardiology and renal
renal function is stable from yesterday with weight loss although patient reports poor urinary output after second dose
patient's O2 needs down, remains short of breath + orthopnea
appreciate consultants
Assessment / Plan
Assessment / Plan
63-year-old female with past medical history of PAD with recent aortoiliac stent, CAD, CKD IV, moyamoya syndrome, hypothyroidism, hyperlipidemia, hypertension, ovarian cancer, TIA, COPD, brain bypass x 3 came to the hospital with chest pain and
shortness of breath. EKG with new ST depressions. Initial troponin is 0.215 with a proBNP greater than 27,000, creatinine 2.0 (baseline). She was taken urgently to cardiac cath complicated by acute resp failure requiring intubation; shown to have
severely elevated filling pressures. No new CAD. She required intubation, admitted to ICU with [place]-Yovany catheter placed, IV Bumex gtt.
.
Acute hypoxemic respiratory failure secondary pulmonary edema requiring intubation mechanical ventilation, elevated filling pressures on the catheterization
Hypertensive emergency with flash pulmonary edema
Acute on chronic congestive heart failure with preserved ejection fraction
-cardiac cath without significant CAD;+ elevated pressures
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
-Bumex gtt stopped 09/23
-continue IV lasix BID
-[place]-Yovany catheter now out
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
-continue aspirin/statin
Hypokalemia
-repleted
# Chronic leukocytosis
Fever 09/21, likely 2/2 aspiration pneumonitis
-afebrile overnight and does not appear infected since
# Normocytic anemia
-No active bleeding
-Continue to trend, stable
-iron studies - anemia inflammation
#Acute kidney injury on CKD stage IIIb
-creatinine up but patient improving with diuresis; down on O2
-continue IV lasix per renal
-appreciate renal consult
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
-bilaterally s/p diagnostic arteriogram, AFX stent graft placement, balloon angioplasty 09/01/23
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
#Livedo reticularis
-vascular following; no acute issues from vascular standpoint
#essential HTN
-Diltiazem off, BP 150's
-F/U cards recs, consider resuming lower dose
#anxiety
-duloxetine continued
#hypothyroidism
-levothyroxine continued
# ex Smoker
#COPD
-nebs prn for sob/wheezing
#Mixed hyperlipidemia
-statin continued
#Moyamoya syndrome, 3 surgical interventions
#DVT prophylaxis - Eliquis
#CODE status
-full code
51 minutes spent on patient care
Anticipated Discharge: 24 - 48 hours
Subjective/Interval History
-
Date of Service: September 27, 2023
weaning off oxygen
remains short of breath when laying flat; better when sitting up
she did not urinate significantly after second dose of lasix given yesterday
Objective Data
-
Labs:
Laboratory Results
09/27/23
04:36
WBC 15.1 H
Hgb 8.5 L
Hct 25.1 L
Plt Count 370
Sodium 134 L
Potassium 3.6
Chloride 94 L
Carbon Dioxide 28
BUN 46 H
Creatinine 2.5 H
Glucose 154 H
Calcium 9.2
Vital Signs:
Vital Signs
Temp Pulse Resp BP Pulse Ox
98.7 F 89 18 143/79 93
09/27/23 03:00 09/27/23 07:31 09/27/23 07:31 09/27/23 06:00 06/16/24 07:31
I&O
09/26/23 09/27/23 09/28/23
06:59 06:59 06:59
Intake Total 1340 / 1340 1320 / 1320
Output Total 1805 / 1855 1450 / 1450
Balance -465 / -515 -130 / -130
Review of Systems
-
History Source: Patient
All other systems: Reviewed and negative
Physical Exam
-
General: No Apparent Distress
HEENT: PERRLA
Respiratory: Rales (improving)
Cardiac: Regular Rhythm and S1/S2
GI: Soft and Nontender
Musculoskeletal: No Edema
Skin: Warm and Dry; Negative Rash
Neuro: AO x 3
Psych: Calm
Data Reviewed
-
Diagnostic Radiology: Report Reviewed by me
Labs: Labs Reviewed by me
[2023-09-27] MEDS: LIPITOR 80 MG PO (08:28)
[2023-09-27] MEDS: ELIQUIS 5 MG PO ×2 (08:28→20:03)
[2023-09-27] MEDS: LASIX 40 MG IV ×2 (08:28→15:57)
[2023-09-27] MEDS: VITAMIN D3 (cholecalciferol) 50 MCG PO (08:28)
[2023-09-27] MEDS: LOW STRENGTH ASPIRIN 81 MG PO (08:28)
[2023-09-27] MEDS: KCL 20 MEQ PO (08:28)
[2023-09-27] MEDS: SENOKOT-S 1 TABLET PO ×2 (08:28→20:03)
[2023-09-27] MEDS: MIRALAX PO (08:30)
--- NOTE | 2023-09-27 08:34 | W.PN.NEPH.PH ---
Today's Communication / Plan
-
maintain 40mg IV BID
replete K
follow bmp
Assessment/Plan
-
Impression:
Chest pain shortness of breath: Congestive heart failure decompensation/non-ST elevation DE
Chronic kidney disease stage IV with baseline creatinine of 2
Hypertension urgency
Aorta iliac revascularization following potential atheroembolism August 2023
COPD
Moyamoya disease/complex peripheral arterial disease
Intubation
echo EF 40-45%, WMA
Plan:
Kidney function climbing to 2.5 but stable today following diuresis,weights down
maintain FR for hyponatremia
pulmonary capillary wedge pressure of 25 following cardiac cath (no intervention performed) at wt of 65.7kg 09/20
Maintain IV Lasix
give potassium
follow labs
d/w pt
-
-
Date of Service: September 27, 2023
CC / HPI / ROS
-
Chief Complaint:
CKD
History of Present Illness:
cr unchanged at 2.5
sodium at 134
s/p extubation 09/21 on mid flow O2 5lit
hb better at 8.3
Hemodynamically stable
Review of Systems:
sob better
weights down
no cp, or n/v
non oliguric via syed
Labs
-
Labs:
WBC 15.1 10^3/uL (4.8-10.8) H 09/27/23 04:36
RBC 2.88 10^6/uL (4.20-5.40) L 09/27/23 04:36
Hgb 8.5 g/dL (12.0-16.0) L 09/27/23 04:36
Hct 25.1 % (37.0-47.0) L 09/27/23 04:36
Plt Count 370 10^3/uL (130-400) 09/27/23 04:36
Sodium 134 mmol/L (135-145) L 09/27/23 04:36
Potassium 3.6 mmol/L (3.5-5.1) 09/27/23 04:36
Chloride 94 mmol/L (98-107) L 09/27/23 04:36
Carbon Dioxide 28 mmol/L (22-30) 09/27/23 04:36
BUN 46 mg/dl (7-17) H 09/27/23 04:36
Creatinine 2.5 mg/dL (0.6-1.0) H 09/27/23 04:36
eGFR 21.08 09/27/23 04:36
Glucose 154 mg/dl (70-99) H 09/27/23 04:36
Calcium 9.2 mg/dl (8.4-10.2) 09/27/23 04:36
Phosphorus 5.0 mg/dl (2.5-4.5) H 09/21/23 19:10
Blb-Y-Zdewwdnviuu Pept > 01364 pg/ml 09/21/23 14:07
Albumin 3.7 g/dl (3.5-5.0) 09/21/23 14:07
Physical Exam
-
Vital Signs:
Vital Signs
Temp Pulse Resp BP Pulse Ox
98.7 F 89 18 143/79 93
09/27/23 03:00 09/27/23 07:31 09/27/23 07:31 09/27/23 06:00 09/27/23 07:31
Cardiovascular:: Regular rate and rhythm
Respiratory:: Bilateral: Coarse
Lung Excursion:: Normal
Abdomen:: Nontender and Soft
Bowel Sounds:: Normal
Extremity Edema:: None: Bilateral:
Syed Catheter: Yes
--- NOTE | 2023-09-27 11:31 | W.PN.INTV ---
Today's Communication / Plan
Recommendations
Continue diuretics
Wean off oxygen she is down to 1 L from 10 L nasal cannula.
Continue nebulizers while in the hospital
Transition to inhalers upon discharge
Physical therapy
Occupational Therapy
Pulmonary will follow briefly
Assessment
-
Acute hypoxemic respiratory failure due to pulmonary edema requiring intubation and mechanical ventilation-elevated filling pressures on right heart catheterization 09/21/2023.
Acute on chronic heart failure with preserved ejection fraction/non-ST elevation myocardial infarction? Type II
Chest x-ray 09/21/2023: Reviewed showed mild cardiomegaly. Mild pulmonary vascular congestion. Small right pleural effusion.
Hypertensive urgency
Chronic anemia
Chronic leukocytosis
Conditions present prior admission:
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
COPD
Moderate obstruction with positive/significant bronchodilator response, follows Dr White
Chronic cough noted
Upper airway cough syndrome
Moderate cigarette smoker (10-19 cigs/day) with longstanding tobacco abuse with 22-thog-mbrf history
TIA, recurrent
Ovarian cancer diagnosed age (no chemo, RT)
Hypertension
Hypercholesterolemia
Hypothyroidism
Moyamoya disease
CAD with occluded RCA
CKD 3/4
Vulva cancer (no RT, chemotherapy)
PAD
Appendectomy 02/1992
Hysterectomy, BSO, omentectomy 02/1992
Partial vulvectomy 2009
Brain bypass x3
Appendectomy
Plan:
Clinically improved
Remains off vasopressors.
Oxygen supplementation improved down to 1 L.
Continues to complain of orthopnea. Occasional chest tightness.
PA catheter has been discontinued 09/25/2023
Responding to diuresis
-
Extubated 09/22/2023.
Continue to wean down oxygen as able.
Chest x-ray 09/25/2023: Reviewed,PA catheter in adequate position. Slightly worsening left basilar and retrocardiac opacity likely atelectasis/pleural effusion. Pulmonary vascular congestion improved.
During this hospital stay no bronchospasm noted.
-
Acute on chronic heart failure with reduced ejection fraction
Status post right heart catheterization 09/21/2023:
1. Right dominant circulation with chronic total occlusion of the proximal RCA, collateralized by the left system.
3. Hypertensive emergency.
4. Acute congestive heart failure.
5. Severely elevated filling pressures (LVEDP = 25 mmHg, PCWP = 25 mmHg at 68.0 kg).
. Severe vasculopathy including moyamoya status post carotid artery bypass and recent aortoiliac angioplasty and stent placement.
-
Cardiology correspondence reviewed:
Echocardiogram: 09/22/2023 Mildly reduced left ventricular ejection fraction. Inferior wall and apical hypokinesis. LVEF 40%. No significant valvular disease. Normal right atrium. Normal right ventricle.
Status post Bumex drip
Continue IV diuretics per cardiology and nephrology.
Her weight is trending lower.
Follow renal function and electrolytes.
-
Back on oral anticoagulants.
Monitor for bleeding.
Continue to monitor hemoglobin. Patient is anemic but has been stable. Anemia contributing to shortness of breath as well.
-
Low-grade fevers-possibly aspiration pneumonitis. Resolved.
Off antibiotics.
Chronic leukocytosis.
-
Hypoxemic respiratory failure: Improved with diuresis down to 1 L.
Not bronchospastic on exam
Encourage incentive spirometry
Increase physical activity. Physical therapy has been ordered.
Has not received any steroids.
-
Glycemic control: Insulin as needed.
Target blood sugar 140-180
-
COPD without bronchospasm.
Continue Pulmicort twice a day
Continue Xopenex 3 times a day per
DuoNebs as needed. Avoid beta agonist as able.
No indication for systemic corticosteroids. Restart outpatient inhalers upon discharge
Eventual outpatient follow-up with Dr. Choudhury
May consider repeating imaging of the chest in the future if symptoms persist. Based on prior imaging of the chest there is no evidence for interstitial lung disease, there is no significant emphysema to my view on 08/2022. Unable to evaluate bases
of the lung due to bilateral effusions and subsegmental atelectasis at that time.
-
Tolerating diet.
Physical therapy as tolerated
Occupational Therapy as tolerated
-
Case discussed with cardiology and nephrology. Discussed with primary team as well.
-
Pulmonary will continue to follow briefly for history of COPD and hypoxemia.

Diagnostic Data
Chest X-ray: 09/07/2023-Small right and trace left pleural effusions with associated probable atelectasis, slightly progressed.
Chest X-Ray: 09/01/23- No acute cardiopulmonary process.
CT Scan: AP 06/25/23- IMPRESSION:
1. Advanced aortic atherosclerotic changes without aneurysmal dilation. Irregular mural thrombus along distal thoracic and abdominal aorta. Moderate stenosis of the infrarenal aorta.
2. High-grade stenosis of the proximal right common iliac artery. Moderate stenosis left common iliac artery. Left profunda femoral stenosis. Three-vessel runoff on the right and 2 vessel runoff on left.
3. Bilateral renal cortical scarring. Atrophic changes of the left kidney as compared with the right.
[facility] 04/09/23- CONCLUSIONS
1: Inferobasal akinesis with EF 54%
2: Single-vessel CAD (chronic total occlusion of the proximal RCA)
3. Recommend continued medical therapy with aspirin and high intensity statin
Echo 09/08/23:
Normal LV size with normal systolic function.
LVEF is 55% by Aguilar's method of discs..
RCA territory mild hypokinesis.
Mild concentric LVH.
Stage I diastolic dysfunction suggestive of abnormal relaxation.
Normal right ventricular size and function.
Mild mitral regurgitation.
Echo: 03/23/23- Normal biventricular size and systolic function without regional wall motion abnormality. Possible basal to mid inferior hypokinesis. Mild concentric left ventricular hypertrophy.
No significant valvular disease. Compared to previous echo 05/10/12, the possible basal inferior hypokinesis is new.
PFT's: 05/28/23- FVC was 2.06L or 58% predicted. FEV1 was 1.10L or 40% predicted. Ratio 53. Post FEV1 was 1.22L or 44% predicted, 11% change.
Lung volumes: TLC was 4.05L or 74% predicted. RV/TLC was 49%. Diffusion was 10.17 or 42% predicted. When adjusted for hemoglobin was unchanged.
Spirometry demonstrates severe obstruction. There was significant bronchodilator response in the FVC. Lung volumes demonstrate mild restriction. There is borderline air trapping. There is a moderate diffusion impairment.
Reports and relevant images were personally reviewed.
Subjective Dataa
Subjective Data
Date of Service:
Date of Service: September 27, 2023
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
Subjective:
Continues to report orthopnea
Some chest pressure at times
Denies any cough or phlegm production
denies any wheezing.
Oxygenation improved.
Review of Systems
General: Fever (n)
Cardiopulmonary: Dyspnea, Chest Pain and Orthopnea
GI: Abdominal Pain (n) and Nausea (n)
Neuro: Headache (n)
Objective Data
Data Reviewed
Vital Signs / I&O / Oxygen:
Vital Signs
Temp Pulse Resp BP Pulse Ox
97.6 F 89 18 143/79 96
09/27/23 07:24 09/27/23 07:31 09/27/23 07:31 09/27/23 06:00 09/27/23 08:25
Intake and Output
09/26/23 09/27/23 09/28/23
06:59 06:59 06:59
Intake Total 1340 / 1340 1320 / 1320
Output Total 1805 / 1855 1450 / 1450
Balance -465 / -515 -130 / -130
SaO2 [A/C] 93
SaO2 96
Nasal Cannula flow liters per 1
minute
Physical Exam
General: Respiratory Distress (n)
HEENT: Normocephalic
Cardiovascular: S1-S2
Respiratory: Wheeze (n), Crackles (bases), Non-Labored Respirations and Other (Good air movement.)
GI: Soft and Non Distended
Neurology: Awake and Oriented
Skin: Warm
Labs/Micro/Reports
Lab Data
09/27/23 04:36
09/27/23 04:36
[2023-09-27] MEDS: FERRLECIT 110 MG IV (15:57)
--- NOTE | 2023-09-27 16:09 | PTCARENOTE ---
Pt presents as assessed. Aox3. NSR with PVC's on tele monitor. B/L groin site and radial site scabbed over, open to air. Pt sating mid 90's on 2L, weaning as tolerated. Ambulated in santo with PT, tolerated well. Call ríos within reach, able to make
needs known.
[2023-09-27] MEDS: CYMBALTA DELAYED RELEASE 30 MG PO (20:03)
[2023-09-27] MEDS: NEURONTIN 300 MG PO (20:03)
[2023-09-27] MEDS: XANAX 0.25 MG PO (21:23)
--- NOTE | 2023-09-27 21:44 | PTCARENOTE ---
Received pt at changes of shift. Pt appears very anxious and c/o of increased SOB. Placed pt on 2L NC satting 91-93%; administered PRN Xanax (see MAR). Lungs diminished throughout with fine crackles in the L base. Educated pt on the importance
of continuing to use her IS and to deep breath. ST on the monitor with frequent PVCs. SBP in the 150s. Resting in bed with call ríos in reach.
[2023-09-27] MEDS: TYLENOL 500 MG PO (23:12)
[2023-09-28] VITALS (11 sets, daily range): BP systolic 120–159; BP diastolic 74–94; PULSE 96; O2SAT 90; BMI 21.5
[2023-09-28] MEDS: SYNTHROID 100 MCG PO (05:25)
[2023-09-28 05:55] LABS: Hematocrit 26.2 % (37.0-47.0); Hemoglobin 8.8 g/dL (12.0-16.0); Mean Corp Hgb Conc. 33.6 g/dL (33.0-37.0); Mean Corpuscular Hgb 29.3 pg (27.0-31.0); Mean Corpuscular Volume 87.3 fL (81.0-99.0); Mean Platelet Volume 10.1 fL (7.4-10.4); Platelet Count 412 10^3/uL (130-400); White Blood Cell Count 16.1 10^3/uL (4.8-10.8)
[2023-09-28 06:30] LABS: Blood Urea Nitrogen 48 mg/dl (7-17); Calcium 9.4 mg/dl (8.4-10.2); Carbon Dioxide 26 mmol/L (22-30); Chloride 93 mmol/L (98-107); Estimated Creatinine Clearance 22 ml/min; Glucose 130 mg/dl (70-99); Magnesium 1.8 mg/dl (1.6-2.3); Potassium 4.2 mmol/L (3.5-5.1); Sodium 132 mmol/L (135-145); eGFR 21.08
[2023-09-28] MEDS: XOPENEX 0.63 MG INHALANT SOLUTION 0.630000000000000004 MG INH ×3 (07:31→19:31)
[2023-09-28] MEDS: PULMICORT 0.5 MG INH ×2 (07:31→19:31)
[2023-09-28] MEDS: SENOKOT-S 1 TABLET PO (08:02)
[2023-09-28] MEDS: VITAMIN D3 (cholecalciferol) 50 MCG PO (08:02)
[2023-09-28] MEDS: LIPITOR 80 MG PO (08:02)
[2023-09-28] MEDS: MIRALAX PO (08:02)
[2023-09-28] MEDS: ELIQUIS 5 MG PO ×2 (08:02→20:21)
[2023-09-28] MEDS: LOW STRENGTH ASPIRIN 81 MG PO (08:02)
[2023-09-28] MEDS: LASIX 40 MG IV ×2 (08:02→17:09)
--- NOTE | 2023-09-28 08:55 | PTCARENOTE ---
pt aaox3. states no pain. 1lnc 92% breath sounds diminished at base. st with pvc noted on monitor. pt at bedside. both are concerned about pt slow recovery form heart failure. asking if she needs new medication for chf. will notify
MD's about concerns.
--- NOTE | 2023-09-28 12:09 | W.PN.HOSP.TC ---
Today's Communication/Plan
-
wean o2
IV lasix
trend cr
restart cardizem
Assessment / Plan
Assessment / Plan
63-year-old female with past medical history of PAD with recent aortoiliac stent, CAD, CKD IV, moyamoya syndrome, hypothyroidism, hyperlipidemia, hypertension, ovarian cancer, TIA, COPD, brain bypass x 3 came to the hospital with chest pain and
shortness of breath. EKG with new ST depressions. Initial troponin is 0.215 with a proBNP greater than 27,000, creatinine 2.0 (baseline). She was taken urgently to cardiac cath complicated by acute resp failure requiring intubation; shown to have
severely elevated filling pressures. No new CAD. She required intubation, admitted to ICU with Regina-Yovany catheter placed, IV Bumex gtt.
.
Acute hypoxemic respiratory failure secondary pulmonary edema requiring intubation mechanical ventilation, elevated filling pressures on the catheterization
Hypertensive emergency with flash pulmonary edema
Acute on chronic congestive heart failure with preserved ejection fraction
-cardiac cath without significant CAD;+ elevated pressures
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
-Bumex gtt stopped 09/23
-continue IV lasix BID
-Regina-Yovany catheter now out
-Per patient discussion with her primary neurologist who stated okay for blood pressure to be lowered further if needed and to be monitored neurologic
-continue aspirin/statin/cardizem restarted
-Unable to ACEI/ARB/K sparking diuretics due to CKD.
Hypokalemia
-repleted
# Chronic leukocytosis
Fever 09/21, likely 2/2 aspiration pneumonitis
-afebrile overnight and does not appear infected since
# Normocytic anemia
-No active bleeding
-Continue to trend, stable
-iron studies - anemia inflammation
#Acute kidney injury on CKD stage IIIb
-creatinine up but patient improving with diuresis; down on O2
-continue IV lasix per renal
-appreciate renal consult
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
-bilaterally s/p diagnostic arteriogram, AFX stent graft placement, balloon angioplasty 09/01/23
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
#Livedo reticularis
-vascular following; no acute issues from vascular standpoint
#essential HTN
-Diltiazem RESTARTED
#anxiety
-duloxetine continued
#hypothyroidism
-levothyroxine continued
# ex Smoker
#COPD
-nebs prn for sob/wheezing
#Mixed hyperlipidemia
-statin continued
#Moyamoya syndrome, 3 surgical interventions
Per patient discussion with her primary neurologist who stated okay for blood pressure to be lowered further if needed and to be monitored neurologically.
#DVT prophylaxis - Eliquis
#CODE status
-full code
Anticipated Discharge: > 48 hours
Subjective/Interval History
-
Date of Service: September 28, 2023
Remains on oxygen
Stable oxygenation helps with the breathing during supination and exertion
Objective Data
-
Labs:
Laboratory Results
09/28/23
05:32
WBC 16.1 H
Hgb 8.8 L
Hct 26.2 L
Plt Count 412 H
Sodium 132 L
Potassium 4.2
Chloride 93 L
Carbon Dioxide 26
BUN 48 H
Creatinine 2.5 H
Glucose 130 H
Calcium 9.4
Vital Signs:
Vital Signs
Temp Pulse Resp BP Pulse Ox
97.6 F 95 19 150/89 91
09/28/23 07:30 09/28/23 10:00 09/28/23 10:00 09/28/23 10:00 09/28/23 10:00
I&O
06/16/24 06/17/24 06/18/24
06:59 06:59 06:59
Intake Total 1320 / 1320 720 / 720
Output Total 1450 / 1450 1250 / 1250 275 / 275
Balance -130 / -130 -530 / -530 -275 / -275
Physical Exam
-
General: No Apparent Distress and Comfortable; Negative Respiratory Distress
HEENT: Normocephalic, Atraumatic, Moist Mucous Membranes and Oxygen
Respiratory: Clear to Auscultation
Cardiac: Regular Rhythm and S1/S2
GI: Soft, Nontender, Nondistended and Normal Bowel Sounds
Musculoskeletal: No Edema
Skin: Warm and Dry; Negative Rash
Neuro: Awake and AO x 3
Psych: Calm
Data Reviewed
-
Total Time Spent with Patient (in minutes): 55
--- NOTE | 2023-09-28 12:11 | W.PN.NEPH.PH ---
Today's Communication / Plan
-
- continue lasix
Assessment/Plan
-
Impression:
Chest pain shortness of breath: Congestive heart failure decompensation/non-ST elevation AL
Chronic kidney disease stage IV with baseline creatinine of 2
Hypertension urgency
Aorta iliac revascularization following potential atheroembolism August 2023
COPD
Moyamoya disease/complex peripheral arterial disease
Intubation
echo EF 40-45%, WMA
Plan:
Kidney function climbing to 2.5 but stable today following diuresis,weights down
maintain FR for hyponatremia
pulmonary capillary wedge pressure of 25 following cardiac cath (no intervention performed) at wt of 65.7kg 09/20. weights downtrending
Maintain IV Lasix
give potassium
follow labs
d/w pt
-
-
Date of Service: September 28, 2023
CC / HPI / ROS
-
Chief Complaint:
CKD
History of Present Illness:
cr unchanged at 2.5
sodium at 132
s/p extubation 09/21
hb better at 8.8
Hemodynamically stable
Review of Systems:
sob better
weights down
no cp, or n/v
non oliguric via syed
Labs
-
Labs:
WBC 16.1 10^3/uL (4.8-10.8) H 09/28/23 05:32
RBC 3.00 10^6/uL (4.20-5.40) L 09/28/23 05:32
Hgb 8.8 g/dL (12.0-16.0) L 09/28/23 05:32
Hct 26.2 % (37.0-47.0) L 09/28/23 05:32
Plt Count 412 10^3/uL (130-400) H 09/28/23 05:32
Sodium 132 mmol/L (135-145) L 09/28/23 05:32
Potassium 4.2 mmol/L (3.5-5.1) 09/28/23 05:32
Chloride 93 mmol/L (98-107) L 09/28/23 05:32
Carbon Dioxide 26 mmol/L (22-30) 09/28/23 05:32
BUN 48 mg/dl (7-17) H 09/28/23 05:32
Creatinine 2.5 mg/dL (0.6-1.0) H 09/28/23 05:32
eGFR 21.08 09/28/23 05:32
Glucose 130 mg/dl (70-99) H 09/28/23 05:32
Calcium 9.4 mg/dl (8.4-10.2) 09/28/23 05:32
Phosphorus 5.0 mg/dl (2.5-4.5) H 09/21/23 19:10
Bvj-X-Euzaflkhdba Pept > [id number] pg/ml 09/21/23 14:07
Albumin 3.7 g/dl (3.5-5.0) 09/21/23 14:07
Physical Exam
-
Vital Signs:
Vital Signs
Temp Pulse Resp BP Pulse Ox
97.6 F 95 19 150/89 91
09/28/23 07:30 09/28/23 10:00 09/28/23 10:00 09/28/23 10:00 09/28/23 10:00
Cardiovascular:: Regular rate and rhythm
Respiratory:: Bilateral: Coarse
Lung Excursion:: Normal
Abdomen:: Nontender and Soft
Bowel Sounds:: Normal
Extremity Edema:: +1: Bilateral:
Syed Catheter: No
[2023-09-28] MEDS: FERRLECIT 110 MG IV (14:36)
--- NOTE | 2023-09-28 15:09 | W.PN.CD ---
Addendum entered and electronically signed by Antonio Edwards DO 09/28/23 18:34:
The patient is doing a little bit better today.
She is on oxygen again, but has had several times where she does not require oxygen.
She reports significant symptomatic improvement when she uses bronchodilator nebulizer treatments.
Her labs suggest she is euvolemic.
We will adjust her diuretics to PO.
I would like to try a course of steroids to see if her pulmonary disease is leading to some hypoxia.
Agree with beta ricky use for her BP/HFpEF. Her renal disease prevents the use of ACEI/ARB/ARNi/AA/SGLT2i.
Home oxygen evaluation.
Begin discharge planning.
Original Note:
Today's Communication / Plan
-
-continue IV diuresis and monitor
-likely BB rather than CCB and monitor BP's closely
Impression / Plan
-
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
HFpEF and chest pressure, prompting cardiac catheterization, at which time she went into flash pulmonary edema from hypertensive crisis, requiring intubation and aggressive BP management.
#HFmEF/Mixed ischemic/non-ischemic cardiomyopathy
-Acute on chronic
-Echo shows new cardiomyopathy (LVEF 40%) with regional wall motion abnormality (known RCA territory, now terminal LAD territory) but no significant left sided CAD on cath.
-GDMT has been difficult given restrictive BP, though apparently neurologist okay with slowly decreasing CP, with neurochecks . Diltiazem set to be resumed, but I will likely switch this to BB. GDMT also limited by CKD.
-weaned off O2. Still with orthopnea and MATAMOROS.
-Continue IV diuresis, which requires intensive monitoring
#CAD/Elevated troponin (non-WA troponin elevation)
-Chronic, stable.
-Cardiac catheterization shows no new CAD.
-Troponin elevation is acute and up to 0.255, but is NOT ACS.
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
#CKD
-Chronic.
-Creatinine stable at 2.5 today (same past few days). (Baseline is 2.1)
-Monitor with diuresis.
-nephrology is following
#PAD/aortic atherosclerosis
-Recent infrarenal aorta/iliac revascularization for potentially atheroembolism (AFX 25-90/16-30, 28-95 proximal extension).
-CTA post procedure comments on residual mural thrombus in descending thoracic aorta.
-Dr. Brooks saw in ER and reports vascular issues stable.
-Apixaban restarted on 09/25/2023
#COPD
-Chronic.
-Bronchodilators started.
#Moyamoya disease
-Chronic, stable.
-History of carotid bypass.
-Previously recommended SBP of 140-160 to maintain cerebral perfusion. However, patient reports that neurologist said okay to bring down BP's a bit (slowly) and do neuro checks.
Subjective/Interval History:
Still with MATAMOROS and orthopnea, but overall better
DATA:
TTE, 09/22/2023:
CONCLUSIONS
Mildly reduced left ventricular systolic function.
Inferior wall and apical hypokinesis.
LV ejection fraction is 40% visually and 44% by volumetric assessment.
No significant valvular disease.
Compared to the images from 09/08/2023, LVEF has decreased from 55% to 40 to
45%. Additionally, apical hypokinesis is seen in addition to the RCA
hypokinesis.
Cardiac catheterization, 09/21/2023:
CONCLUSIONS:
1. Right dominant circulation with chronic total occlusion of the proximal RCA, collateralized by the left system.
2. Acute hypoxic respiratory failure requiring intubation and mechanical ventilation.
3. Hypertensive emergency.
4. Acute congestive heart failure.
5. Severely elevated filling pressures (LVEDP = 25 mmHg, PCWP = 25 mmHg at 68.0 kg).
6. Severe vasculopathy including moyamoya status post carotid artery bypass and recent aortoiliac angioplasty and stent placement.
CTA, Chest/Abdomen/Pelvis, 09/03/2023:
IMPRESSION:
Placement of abdominal aortic and bilateral proximal common iliac artery endostent in the interval since prior study, patent.
Mural thrombus again seen along the posterior left side of the descending thoracic aorta.
Additional findings, as detailed above.
CTA Abdomen/Pelvis with runoff, 06/25/2023:
IMPRESSION:
1. Advanced aortic atherosclerotic changes without aneurysmal dilation. Irregular mural thrombus along distal thoracic and abdominal aorta. Moderate stenosis of the infrarenal aorta.
2. High-grade stenosis of the proximal right common iliac artery. Moderate stenosis left common iliac artery. Left profunda femoral stenosis. Three-vessel runoff on the right and 2 vessel runoff on the left.
3. Bilateral renal cortical scarring. Atrophic changes of the left kidney as compared with the right.
Physical Exam
Vital Signs/Labs
Vital Signs
Temp Pulse Resp BP Pulse Ox
98.3 F 96 20 120/94 92
09/28/23 11:30 09/28/23 14:28 09/28/23 14:28 09/28/23 14:04 09/28/23 14:28
09/27/23 09/28/23 09/29/23
06:59 06:59 06:59
Actual Weight 61.9 kg 62.2 kg
09/28/23 05:32
09/28/23 05:32
PT 16.6 Sec (11.4-14.6) H 09/26/23 04:26
INR 1.36 09/26/23 04:26
APTT 49.4 Sec (23.4-35.0) H 09/26/23 04:26
Magnesium 1.8 mg/dl (1.6-2.3) 09/28/23 05:32
Triglycerides 143 mg/dl (10-149) 09/22/23 03:57
LDL Cholesterol, Calc 46 mg/dl 09/22/23 03:57
VLDL Cholesterol, Calc 28 mg/dl (0-30) 09/22/23 03:57
HDL Cholesterol 44 mg/dl 09/22/23 03:57
09/21/23
14:07
Xbt-Z-Uyrnbphmvxp Pept > [id number]
Physical Exam
Constitutional: No acute distress
EENT: Anicteric
Cardiovascular: Rhythm & rate is regular
Respiratory: Respiratory effort normal and Lungs clear to auscul.
GI: Soft, Non tender and Normal bowel sounds
Neuro/Psych: AO x 3
Other: Skin (warm and dry)
Data Reviewed
-
Date of Service: September 28, 2023
EKG: Other (tele SR)
Labs: Labs Reviewed by me
--- NOTE | 2023-09-28 16:35 | CM ---
Patient with Dx Acute hypoxemic respiratory failure s/p extubation on 09/21, pulmonary edema, CHF, anemia, SUAD. Room air. Receiving IV Ferric Na Gluconate, IV Lasix. PT recommends HH. OT recommends home vs SNF.
Plan home with resumption of [facility].
--- NOTE | 2023-09-28 16:52 | W.PN.PUL3 ---
Today's Communication / Plan
-
Diuresis as per cardiology
I am amenable to starting systemic steroids to see if this improves her pulmonary status
Up OOB as tolerated
PT/OT
Check CXR tomorrow morning
Assessment
-
Impression:
Acute hypoxemic respiratory failure due to pulmonary edema requiring intubation and mechanical ventilation-elevated filling pressures on right heart catheterization 09/21/2023 - extubated 09/22/2023
Acute on chronic heart failure with preserved ejection fraction/non-ST elevation myocardial infarction? Type II
Chest x-ray 09/21/2023: Reviewed showed mild cardiomegaly. Mild pulmonary vascular congestion. Small right pleural effusion.
Hypertensive urgency
Chronic anemia
Chronic leukocytosis
Conditions present prior admission:
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
COPD
Moderate obstruction with positive/significant bronchodilator response, follows Dr White
Chronic cough noted
Upper airway cough syndrome
Moderate cigarette smoker (10-19 cigs/day) with longstanding tobacco abuse with [id number] history
TIA, recurrent
Ovarian cancer diagnosed age (no chemo, RT)
Hypertension
Hypercholesterolemia
Hypothyroidism
Moyamoya disease
CAD with occluded RCA
CKD 3/4
Vulva cancer (no RT, chemotherapy)
PAD
Appendectomy 02/1992
Hysterectomy, BSO, omentectomy 02/1992
Partial vulvectomy 2009
Brain bypass x3
Appendectomy
Plan:
Clinically improved
Remains off vasopressors.
Oxygen supplementation improved down to 1-2L.
Continues to complain of orthopnea. Occasional chest tightness. --> check CXR tomorrow to re-assess lung parenchyma; trend BNP
PA catheter has been discontinued 09/25/2023
Responding to IV diuresis
-
Extubated 09/22/2023.
Continue to wean down oxygen as able.
Chest x-ray 09/25/2023: Reviewed,PA catheter in adequate position. Slightly worsening left basilar and retrocardiac opacity likely atelectasis/pleural effusion. Pulmonary vascular congestion improved.
During this hospital stay no bronchospasm noted.
-
Acute on chronic heart failure with reduced ejection fraction
Status post right heart catheterization 09/21/2023:
1. Right dominant circulation with chronic total occlusion of the proximal RCA, collateralized by the left system.
3. Hypertensive emergency.
4. Acute congestive heart failure.
5. Severely elevated filling pressures (LVEDP = 25 mmHg, PCWP = 25 mmHg at 68.0 kg).
. Severe vasculopathy including moyamoya status post carotid artery bypass and recent aortoiliac angioplasty and stent placement.
-
Cardiology correspondence reviewed:
Echocardiogram: 09/22/2023 Mildly reduced left ventricular ejection fraction. Inferior wall and apical hypokinesis. LVEF 40%. No significant valvular disease. Normal right atrium. Normal right ventricle.
Status post Bumex drip
Continue IV diuretics per cardiology and nephrology.
Her weight is trending lower.
Follow renal function and electrolytes.
-
Back on oral anticoagulants.
Monitor for bleeding.
Continue to monitor hemoglobin. Patient is anemic but has been stable. Anemia contributing to shortness of breath as well.
-
Low-grade fevers-possibly aspiration pneumonitis. Resolved.
Never started on antibiotics.
Chronic leukocytosis.
-
Hypoxemic respiratory failure: Improved with diuresis down to 1-2 L.
Not bronchospastic on exam
Encourage incentive spirometry
Increase physical activity. Physical therapy has been ordered.
Has not received any steroids
-
Glycemic control: Insulin as needed.
Target blood sugar 140-180
-
COPD without bronchospasm.
Severe COPD via PFT from September 14, 2023 with post BD FEV1 1.36 L / 49%. Very severe gas exchange capacity defect with DLCO: 34% (DLco/VA: 45%)
Continue Pulmicort twice a day
Continue Xopenex 3 times a day per
DuoNebs as needed. Avoid beta agonist as able.
I am amenable to starting systemic steroids to see if this improves her SOB- check CXR regardless tomorrow to assess lung parenchyma - restart outpatient inhalers upon discharge
Eventual outpatient follow-up with Dr. Choudhury
May consider repeating imaging of the chest in the future if symptoms persist. Based on prior imaging of the chest there is no evidence for interstitial lung disease, there is no significant emphysema to my view on 08/2022.
-
Tolerating diet.
Physical therapy as tolerated
Occupational Therapy as tolerated
-
-
Pulmonary will continue to follow briefly for history of COPD and hypoxemia -she already has appointment set up with me on 11/03/2023. I will try to get this moved up.
Total time spent today was 35 minutes for this encounter. Time includes reviewing laboratory test/imaging results, reviewing pertinent medical records, obtaining and reviewing medical history, performing an appropriate exam, ordering medications,
tests and procedures. Time also includes documentation of this encounter, coordinating patient care and communicating with other healthcare professionals. Total time does not include separately billed tests performed on this date of service.

Diagnostic Data
Chest X-ray: 09/07/2023-Small right and trace left pleural effusions with associated probable atelectasis, slightly progressed.
Chest X-Ray: 09/01/23- No acute cardiopulmonary process.
CT Scan: AP 06/25/23- IMPRESSION:
1. Advanced aortic atherosclerotic changes without aneurysmal dilation. Irregular mural thrombus along distal thoracic and abdominal aorta. Moderate stenosis of the infrarenal aorta.
2. High-grade stenosis of the proximal right common iliac artery. Moderate stenosis left common iliac artery. Left profunda femoral stenosis. Three-vessel runoff on the right and 2 vessel runoff on left.
3. Bilateral renal cortical scarring. Atrophic changes of the left kidney as compared with the right.
[facility] 04/09/23- CONCLUSIONS
1: Inferobasal akinesis with EF 54%
2: Single-vessel CAD (chronic total occlusion of the proximal RCA)
3. Recommend continued medical therapy with aspirin and high intensity statin
Echo 09/08/23:
Normal LV size with normal systolic function.
LVEF is 55% by Aguilar's method of discs..
RCA territory mild hypokinesis.
Mild concentric LVH.
Stage I diastolic dysfunction suggestive of abnormal relaxation.
Normal right ventricular size and function.
Mild mitral regurgitation.
Echo: 03/23/23- Normal biventricular size and systolic function without regional wall motion abnormality. Possible basal to mid inferior hypokinesis. Mild concentric left ventricular hypertrophy.
No significant valvular disease. Compared to previous echo 05/10/12, the possible basal inferior hypokinesis is new.
PFT's: 05/28/23- FVC was 2.06L or 58% predicted. FEV1 was 1.10L or 40% predicted. Ratio 53. Post FEV1 was 1.22L or 44% predicted, 11% change.
Lung volumes: TLC was 4.05L or 74% predicted. RV/TLC was 49%. Diffusion was 10.17 or 42% predicted. When adjusted for hemoglobin was unchanged.
Spirometry demonstrates severe obstruction. There was significant bronchodilator response in the FVC. Lung volumes demonstrate mild restriction. There is borderline air trapping. There is a moderate diffusion impairment.
Reports and relevant images were personally reviewed.
Subjective Data
-
Date of Service:
Date of Service: September 28, 2023
Chief Complaint: Pulmonary Follow Up
Subjective:
Patient's son is at bedside. Patient seen and evaluated today at bedside. Currently saturating 92% on 2 L/min. She feels better today but still feels shortness of breath when she gets out of bed and exerts herself. She feels well at rest however.
Review of Systems
General: Other (Negative unless mentioned above)
Objective Data
Data Reviewed
Vital Signs / I&O / Oxygen:
Vital Signs
Temp Pulse Resp BP Pulse Ox
98.6 F 96 20 120/94 92
09/28/23 15:16 09/28/23 14:28 09/28/23 14:28 09/28/23 14:04 09/28/23 14:28
Intake and Output
09/27/23 09/28/23 09/29/23
06:59 06:59 06:59
Intake Total 1320 / 1320 720 / 720
Output Total 1450 / 1450 1250 / 1250 275 / 275
Balance -130 / -130 -530 / -530 -275 / -275
SaO2 [A/C] 93
SaO2 92
Nasal Cannula flow liters per 1
minute
Physical Exam
General: Respiratory Distress (negative) and Comfortable
HEENT: Normocephalic and Anicteric
Cardiovascular: S1-S2 and Peripheral Edema (negative)
Respiratory: Wheeze (negative), Crackles (Bilateral) and Rhonchi (negative)
GI: Soft, Non Distended, Non Tender and Normal Bowel Sounds
Neurology: AO x 3 and Tremors (negative)
Skin: Warm, Dry and Jaundice (negative)
Labs/Micro/Reports
Lab Data
09/28/23 05:32
09/28/23 05:32
[2023-09-28] MEDS: TOPROL XL 25 MG PO (17:10)
[2023-09-28] MEDS: CYMBALTA DELAYED RELEASE 30 MG PO (20:21)
[2023-09-28] MEDS: SENOKOT-S PO (20:21)
[2023-09-28] MEDS: XANAX 0.25 MG PO (20:25)
[2023-09-28] MEDS: SOLU-MEDROL PF 60 MG IV (20:25)
[2023-09-28] MEDS: TIGAN 200 MG IM (22:36)
[2023-09-28] MEDS: NEURONTIN 300 MG PO (22:41)
--- NOTE | 2023-09-28 22:50 | PTCARENOTE ---
Addendum entered by Di Victor RN 09/29/23 05:43:
Sp02 decreases to 85-86% on RA at rest while asleep. Sp02 increases to 94-95% on 2L at rest. Pt in no apparent distress. Call ríos within reach.
Original Note:
Patient recv'd first dose of IV tere-Medrol, med education provided. xanax given with med to help prevent side effects. ~2 hours after pt c/o nausea & upset stomach. Alcohol swab, ice chips and mint given with no relief. Order for IM Tigan recv'd and
given per JUN, med education provided. Pt grateful. Pt stated she actually felt a little nauseous earlier but it went away. Pt able to walk self to BR, voiding in hat. 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 2L in place. Telemetry showing NSR. Call ríos
within reach. pt calls appropriately.
[2023-09-29] VITALS (9 sets, daily range): BP systolic 116–135; BP diastolic 63–83; BMI 21.5
[2023-09-29] MEDS: SYNTHROID 100 MCG PO (04:16)
[2023-09-29 04:29] LABS: Hematocrit 26.1 % (37.0-47.0); Hemoglobin 8.9 g/dL (12.0-16.0); Mean Corp Hgb Conc. 34.1 g/dL (33.0-37.0); Mean Corpuscular Volume 87.9 fL (81.0-99.0); Mean Platelet Volume 10.2 fL (7.4-10.4); Platelet Count 465 10^3/uL (130-400); Red Blood Cell Count 2.97 10^6/uL (4.20-5.40); Red Cell Dist. Width 14.8 % (11.5-14.5); White Blood Cell Count 14.2 10^3/uL (4.8-10.8)
[2023-09-29 05:01] LABS: Blood Urea Nitrogen 54 mg/dl (7-17); Calcium 9.7 mg/dl (8.4-10.2); Carbon Dioxide 23 mmol/L (22-30); Chloride 92 mmol/L (98-107); Estimated Creatinine Clearance 22 ml/min; Glucose 189 mg/dl (70-99); Potassium 4.3 mmol/L (3.5-5.1); Sodium 131 mmol/L (135-145); eGFR 20.11
[2023-09-29 05:07] LABS: NT-proBNP > 27000 pg/ml
[2023-09-29] MEDS: XOPENEX 0.63 MG INHALANT SOLUTION 0.630000000000000004 MG INH ×3 (07:35→20:23)
[2023-09-29] MEDS: PULMICORT 0.5 MG INH ×2 (07:35→20:23)
[2023-09-29] MEDS: LIPITOR 80 MG PO (08:24)
[2023-09-29] MEDS: ELIQUIS 5 MG PO ×2 (08:24→21:43)
[2023-09-29] MEDS: LASIX 40 MG IV (08:24)
[2023-09-29] MEDS: SOLU-MEDROL PF 60 MG IV ×2 (08:24→21:43)
[2023-09-29] MEDS: VITAMIN D3 (cholecalciferol) 50 MCG PO (08:24)
[2023-09-29] MEDS: LOW STRENGTH ASPIRIN 81 MG PO (08:24)
[2023-09-29] MEDS: SENOKOT-S PO ×2 (08:34→21:42)
[2023-09-29] MEDS: MIRALAX PO (08:34)
--- NOTE | 2023-09-29 08:55 | W.PN.CD ---
Today's Communication / Plan
-
Continue IV diuresis
Slowly add GDMT with consultation and discussion with nephrology
Impression / Plan
-
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
chest pressure, prompting cardiac catheterization, at which time she went into flash pulmonary edema from hypertensive crisis, requiring intubation and aggressive BP management.
HFmidrangeEF, acute on chronic
- Dry weight uncertain but LVEDP = 25 mmHg, PCWP = 25 mmHg at 68.0 kg. Goal weight may be 61-62 kg
- Now on HF BB
- If renal function stays stable we certainly can slowly add standard GDMT: RAAS-inhib, SGLT inhibitor, and MRA in addition to a loop diuretic and HF BB
- On IV Lasix BID and givien new IV steroids will leave on IV Lasix for now
Single vessel CAD with chronic RCA occlusion. Cath this admit
CKD
PAD/aortic atherosclerosis
-Recent infrarenal aorta/iliac revascularization for potentially atheroembolism (AFX 25-90/16-30, 28-95 proximal extension).
-CTA post procedure comments on residual mural thrombus in descending thoracic aorta.
-Dr. Brooks saw in ER and reports vascular issues stable.
-Apixaban restarted on 09/25/2023
HTN
- Goal BP includes consideration of her complex cerebral vascular disease
COPD=> now on IV steroids
Moyamoya disease, prior carotid bypass.
-Previously recommended SBP of 140-160 to maintain cerebral perfusion. However, patient reports that neurologist said okay to bring down BP's a bit (slowly) and do neuro checks.
Subjective:
Feels well
Physical Exam
Vital Signs/Labs
Vital Signs
Temp Pulse Resp BP Pulse Ox
98.2 F 80 18 129/76 93
09/29/23 08:21 09/29/23 08:24 09/29/23 08:00 09/29/23 08:24 09/29/23 08:00
09/28/23 09/29/23 09/30/23
06:59 06:59 06:59
Actual Weight 62.2 kg 62.1 kg
09/29/23 04:09
09/29/23 04:09
PT 16.6 Sec (11.4-14.6) H 09/26/23 04:26
INR 1.36 09/26/23 04:26
APTT 49.4 Sec (23.4-35.0) H 09/26/23 04:26
Magnesium 1.8 mg/dl (1.6-2.3) 09/28/23 05:32
Triglycerides 143 mg/dl (10-149) 09/22/23 03:57
LDL Cholesterol, Calc 46 mg/dl 09/22/23 03:57
VLDL Cholesterol, Calc 28 mg/dl (0-30) 09/22/23 03:57
HDL Cholesterol 44 mg/dl 09/22/23 03:57
09/21/23 09/29/23
14:07 04:09
Sxf-Z-Oihejlnocid Pept > 68072 > 47004
Physical Exam
Constitutional: No acute distress
EENT: Anicteric
Cardiovascular: Rhythm & rate is regular and Pedal edema is absent
Respiratory: Respiratory effort normal and Lungs clear to auscul.
GI: Soft and Distention absent
Neuro/Psych: AO x 3
Data Reviewed
-
Date of Service: September 29, 2023
--- NOTE | 2023-09-29 10:14 | W.PN.HOSP.TC ---
Today's Communication/Plan
-
Diuretics per nephrology
Trial of IV steroids
Wean oxygen as tolerated
Continue with bronchodilators
Out of bed ambulate
Assessment / Plan
Assessment / Plan
63-year-old female with past medical history of PAD with recent aortoiliac stent, CAD, CKD IV, moyamoya syndrome, hypothyroidism, hyperlipidemia, hypertension, ovarian cancer, TIA, COPD, brain bypass x 3 came to the hospital with chest pain and
shortness of breath. EKG with new ST depressions. Initial troponin is 0.215 with a proBNP greater than 27,000, creatinine 2.0 (baseline). She was taken urgently to cardiac cath complicated by acute resp failure requiring intubation; shown to have
severely elevated filling pressures. No new CAD. She required intubation, admitted to ICU with Ranger-Yovany catheter placed, IV Bumex gtt.
.
Acute hypoxemic respiratory failure secondary pulmonary edema requiring intubation mechanical ventilation, elevated filling pressures on the catheterization
Hypertensive emergency with flash pulmonary edema
Acute on chronic congestive heart failure with preserved ejection fraction
Non-HI troponin elevation
-cardiac cath without significant CAD;+ elevated pressures
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
-Bumex gtt stopped 09/23
-continue 40mg IV lasix BID. Plan for up titration per nephrology.
-Ranger-Yovany catheter now out
-Per patient discussion with her primary neurologist who stated okay for blood pressure to be lowered further if needed and to be monitored neurologic
-continue aspirin/statin/cardizem restarted
-Plan for of goal-directed medical therapy pending stabilization of creatinine probably as outpatient.
-
Hypokalemia
-repleted
# Chronic leukocytosis
Fever 09/21, likely 2/2 aspiration pneumonitis
-afebrile overnight and does not appear infected since
# Normocytic anemia
-No active bleeding
-Continue to trend, stable
-iron studies - anemia inflammation
#Acute kidney injury on CKD stage IIIb
-creatinine up but patient improving with diuresis; down on O2
-continue IV lasix per renal
-appreciate renal consult
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
-bilaterally s/p diagnostic arteriogram, AFX stent graft placement, balloon angioplasty 09/01/23
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
#Livedo reticularis
-vascular following; no acute issues from vascular standpoint
#essential HTN
-Diltiazem RESTARTED
#anxiety
-duloxetine continued
#hypothyroidism
-levothyroxine continued
# ex Smoker
#COPD
-Continue bronchodilators. Severe COPD recent PFTs.
-Not severely wheezing or bronchospastic. Trial of IV steroids. Chest x-ray pending for today
#Mixed hyperlipidemia
-statin continued
#Moyamoya syndrome, 3 surgical interventions
Per patient discussion with her primary neurologist who stated okay for blood pressure to be lowered further if needed and to be monitored neurologically.
#DVT prophylaxis - Eliquis
#CODE status
-full code
Anticipated Discharge: 24 - 48 hours
Subjective/Interval History
-
Date of Service: September 29, 2023
Patient blood pressure lowered to 129/76 and remains asymptomatic
Weaned off oxygen with trial on room air
States she ambulated in the hallway yesterday and subsequently afterwards felt short of breath
Objective Data
-
Labs:
Laboratory Results
09/29/23
04:09
WBC 14.2 H
Hgb 8.9 L
Hct 26.1 L
Plt Count 465 H
Sodium 131 L
Potassium 4.3
Chloride 92 L
Carbon Dioxide 23
BUN 54 H
Creatinine 2.6 H
Glucose 189 H
Calcium 9.7
Vital Signs:
Vital Signs
Temp Pulse Resp BP Pulse Ox
98.2 F 80 18 129/76 93
09/29/23 08:21 09/29/23 08:24 09/29/23 08:00 09/29/23 08:24 09/29/23 08:00
I&O
09/28/23 09/29/23 09/30/23
06:59 06:59 06:59
Intake Total 720 / 720
Output Total 1250 / 1250 875 / 875
Balance -530 / -530 -875 / -875
Physical Exam
-
General: No Apparent Distress and Comfortable; Negative Respiratory Distress
HEENT: Normocephalic, Atraumatic, Moist Mucous Membranes and Oxygen
Respiratory: Clear to Auscultation
Cardiac: Regular Rhythm and S1/S2
GI: Soft, Nontender, Nondistended and Normal Bowel Sounds
Musculoskeletal: No Edema
Skin: Warm and Dry; Negative Rash
Neuro: Awake, Alert, Oriented, AO x 3, No Motor Deficits and Nonfocal/Grossly Intact; Negative Tremors, Sedated, Slurred Speech or Facial Droop
Psych: Calm
Data Reviewed
-
Total Time Spent with Patient (in minutes): 55
--- NOTE | 2023-09-29 11:13 | W.PN.PUL3 ---
Today's Communication / Plan
-
Diuresis as per cardiology/nephrology --> raised today to 60mg BID from 40mg IV BID
Systemic steroids started on 09/27 and will wean as tolerated
Up OOB as tolerated
PT/OT
Assessment
-
Impression:
Acute hypoxemic respiratory failure due to pulmonary edema requiring intubation and mechanical ventilation-elevated filling pressures on right heart catheterization 09/21/2023 - extubated 09/22/2023
Acute on chronic heart failure with preserved ejection fraction/non-ST elevation myocardial infarction? Type II
Chest x-ray 09/21/2023: Reviewed showed mild cardiomegaly. Mild pulmonary vascular congestion. Small right pleural effusion.
Hypertensive urgency
Chronic anemia
Chronic leukocytosis
Conditions present prior admission:
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
COPD
Moderate obstruction with positive/significant bronchodilator response, follows Dr White
Chronic cough noted
Upper airway cough syndrome
Moderate cigarette smoker (10-19 cigs/day) with longstanding tobacco abuse with 28-fegy-taau history
TIA, recurrent
Ovarian cancer diagnosed age (no chemo, RT)
Hypertension
Hypercholesterolemia
Hypothyroidism
Moyamoya disease
CAD with occluded RCA
CKD 3/4
Vulva cancer (no RT, chemotherapy)
PAD
Appendectomy 02/1992
Hysterectomy, BSO, omentectomy 02/1992
Partial vulvectomy 2009
Brain bypass x3
Appendectomy
Plan:
Clinically improved
Remains off vasopressors.
Oxygen supplementation improved down to 1-2L and she is now on room air today after cardiology started steroids on 09/27
Continues to complain of orthopnea. Occasional chest tightness. --> Chest x-ray today shows persistent small bilateral pleural effusions with increased pulm vascular congestion, similar to last CXR on 09/25/2023 although it appears her left
hemithorax has slightly better aeration.; proBNP also very high at >27,000
PA catheter has been discontinued 09/25/2023
Responding to IV diuresis, but considering proBNP still remains at >27,000 with CXR findings, Lasix to be increased by nephrology.
-
Extubated 09/22/2023.
Continue to wean down oxygen as able.
Chest x-ray 09/25/2023: Reviewed,PA catheter in adequate position. Slightly worsening left basilar and retrocardiac opacity likely atelectasis/pleural effusion. Pulmonary vascular congestion improved.
Chest x-ray 09/29/2023: Reviewed; Pulmonary vascularity borderline prominent; Mild cardiomegaly; Small bilateral pleural effusions.
During this hospital stay no bronchospasm noted.
-
Acute on chronic heart failure with reduced ejection fraction
Status post right heart catheterization 09/21/2023:
1. Right dominant circulation with chronic total occlusion of the proximal RCA, collateralized by the left system.
3. Hypertensive emergency.
4. Acute congestive heart failure.
5. Severely elevated filling pressures (LVEDP = 25 mmHg, PCWP = 25 mmHg at 68.0 kg).
. Severe vasculopathy including moyamoya status post carotid artery bypass and recent aortoiliac angioplasty and stent placement.
-
Cardiology correspondence reviewed:
Echocardiogram: 09/22/2023 Mildly reduced left ventricular ejection fraction. Inferior wall and apical hypokinesis. LVEF 40%. No significant valvular disease. Normal right atrium. Normal right ventricle.
Status post Bumex drip
Continue IV diuretics per cardiology and nephrology.
Her weight is trending lower.
Follow renal function and electrolytes.
-
Back on oral anticoagulants.
Monitor for bleeding.
Continue to monitor hemoglobin. Patient is anemic but has been stable. Anemia contributing to shortness of breath as well.
-
Low-grade fevers-possibly aspiration pneumonitis. Resolved.
Never started on antibiotics.
Chronic leukocytosis.
-
Hypoxemic respiratory failure: Improved with diuresis down to RA as of today
Not bronchospastic on exam
Encourage incentive spirometry
Increase physical activity. Physical therapy has been ordered.
Steroids started on 09/27 by caridology
-
Glycemic control: Insulin as needed.
Target blood sugar 140-180
-
COPD without bronchospasm.
Severe COPD via PFT from September 14, 2023 with post BD FEV1 1.36 L / 49%. Very severe gas exchange capacity defect with DLCO: 34% (DLco/VA: 45%)
Continue Pulmicort twice a day
Continue Xopenex 3 times a day per
DuoNebs as needed. Avoid beta agonist as able.
I am amenable to starting systemic steroids to see if this improves her SOB-cardiology started steroids on 09/27, and wean as tolerated. Restart outpatient inhalers upon discharge
Eventual outpatient follow-up with Dr. Choudhury
May consider repeating imaging of the chest in the future if symptoms persist. Based on prior imaging of the chest there is no evidence for interstitial lung disease, there is no significant emphysema to my view on 08/2022.
-
Tolerating diet.
Physical therapy as tolerated
Occupational Therapy as tolerated
-
-
Pulmonary will continue to follow briefly for history of COPD and hypoxemia -she already has appointment set up with me on 11/03/2023. I will try to get this moved up.
Total time spent today was 35 minutes for this encounter. Time includes reviewing laboratory test/imaging results, reviewing pertinent medical records, obtaining and reviewing medical history, performing an appropriate exam, ordering medications,
tests and procedures. Time also includes documentation of this encounter, coordinating patient care and communicating with other healthcare professionals. Total time does not include separately billed tests performed on this date of service.

Diagnostic Data
Chest X-ray: 09/07/2023-Small right and trace left pleural effusions with associated probable atelectasis, slightly progressed.
Chest X-Ray: 09/01/23- No acute cardiopulmonary process.
CT Scan: AP 06/25/23- IMPRESSION:
1. Advanced aortic atherosclerotic changes without aneurysmal dilation. Irregular mural thrombus along distal thoracic and abdominal aorta. Moderate stenosis of the infrarenal aorta.
2. High-grade stenosis of the proximal right common iliac artery. Moderate stenosis left common iliac artery. Left profunda femoral stenosis. Three-vessel runoff on the right and 2 vessel runoff on left.
3. Bilateral renal cortical scarring. Atrophic changes of the left kidney as compared with the right.
[facility] 04/09/23- CONCLUSIONS
1: Inferobasal akinesis with EF 54%
2: Single-vessel CAD (chronic total occlusion of the proximal RCA)
3. Recommend continued medical therapy with aspirin and high intensity statin
Echo 09/08/23:
Normal LV size with normal systolic function.
LVEF is 55% by Aguilar's method of discs..
RCA territory mild hypokinesis.
Mild concentric LVH.
Stage I diastolic dysfunction suggestive of abnormal relaxation.
Normal right ventricular size and function.
Mild mitral regurgitation.
Echo: 03/23/23- Normal biventricular size and systolic function without regional wall motion abnormality. Possible basal to mid inferior hypokinesis. Mild concentric left ventricular hypertrophy.
No significant valvular disease. Compared to previous echo 05/10/12, the possible basal inferior hypokinesis is new.
PFT's: 05/28/23- FVC was 2.06L or 58% predicted. FEV1 was 1.10L or 40% predicted. Ratio 53. Post FEV1 was 1.22L or 44% predicted, 11% change.
Lung volumes: TLC was 4.05L or 74% predicted. RV/TLC was 49%. Diffusion was 10.17 or 42% predicted. When adjusted for hemoglobin was unchanged.
Spirometry demonstrates severe obstruction. There was significant bronchodilator response in the FVC. Lung volumes demonstrate mild restriction. There is borderline air trapping. There is a moderate diffusion impairment.
Reports and relevant images were personally reviewed.
Subjective Data
-
Date of Service:
Date of Service: September 29, 2023
Chief Complaint: Pulmonary Follow Up
Subjective:
Patient seen and evaluated today at bedside. She still feels short of breath with exertion. She was weaned to room air today. SpO2 93%. No acute events reported from overnight. She denies chest pain, headache, fevers or chills. Steroids were
started yesterday by cardiology.
Review of Systems
General: Other (Negative unless mentioned above)
Objective Data
Data Reviewed
Vital Signs / I&O / Oxygen:
Vital Signs
Temp Pulse Resp BP Pulse Ox
98.2 F 80 18 129/76 92
09/29/23 08:21 09/29/23 08:24 09/29/23 08:00 09/29/23 08:24 09/29/23 11:01
Intake and Output
09/28/23 09/29/23 09/30/23
06:59 06:59 06:59
Intake Total 720 / 720
Output Total 1250 / 1250 875 / 875
Balance -530 / -530 -875 / -875
SaO2 [A/C] 93
SaO2 92
Nasal Cannula flow liters per 2
minute
Physical Exam
General: Respiratory Distress (negative) and Comfortable
HEENT: Normocephalic and Anicteric
Cardiovascular: S1-S2 and Peripheral Edema (negative)
Respiratory: Wheeze (negative), Crackles (Bilateral) and Rhonchi (negative)
GI: Soft, Non Distended, Non Tender and Normal Bowel Sounds
Neurology: AO x 3 and Tremors (negative)
Skin: Warm, Dry and Jaundice (negative)
Labs/Micro/Reports
Lab Data
09/29/23 04:09
09/29/23 04:09
[2023-09-29] MEDS: FERRLECIT 110 MG IV (14:15)
--- NOTE | 2023-09-29 14:24 | PTCARENOTE ---
Report called to [facility]. Awaiting transport. IV Iron infusing through [facility] P[facility].
--- NOTE | 2023-09-29 14:30 | W.PN.NEPH.PH ---
Today's Communication / Plan
-
-increase lasix to 60mg BID
Assessment/Plan
-
Impression:
Chest pain shortness of breath: Congestive heart failure decompensation/non-ST elevation CO
Chronic kidney disease stage IV with baseline creatinine of 2
Hypertension urgency
Aorta iliac revascularization following potential atheroembolism August 2023
COPD
Moyamoya disease/complex peripheral arterial disease
Intubation
echo EF 40-45%, WMA
Plan:
Kidney function climbing to 2.6 following diuresis,weights down
maintain FR for hyponatremia
pulmonary capillary wedge pressure of 25 following cardiac cath (no intervention performed) at wt of 65.7kg 09/20. weights downtrending
Will increase IV lasix to 60mg BID
give potassium
follow labs
Patient could still be a candidate for GDMT after stabilization of kidney function
d/w pt and team
-
-
Date of Service: September 29, 2023
CC / HPI / ROS
-
Chief Complaint:
CKD
History of Present Illness:
cr unchanged at 2.6
sodium at 132
s/p extubation 09/21
hb better at 8.8
Hemodynamically stable
Review of Systems:
sob better
weights down
no cp, or n/v
non oliguric via syed
Labs
-
Labs:
WBC 14.2 10^3/uL (4.8-10.8) H 09/29/23 04:09
RBC 2.97 10^6/uL (4.20-5.40) L 09/29/23 04:09
Hgb 8.9 g/dL (12.0-16.0) L 09/29/23 04:09
Hct 26.1 % (37.0-47.0) L 09/29/23 04:09
Plt Count 465 10^3/uL (130-400) H 09/29/23 04:09
Sodium 131 mmol/L (135-145) L 09/29/23 04:09
Potassium 4.3 mmol/L (3.5-5.1) 09/29/23 04:09
Chloride 92 mmol/L (98-107) L 09/29/23 04:09
Carbon Dioxide 23 mmol/L (22-30) 09/29/23 04:09
BUN 54 mg/dl (7-17) H 09/29/23 04:09
Creatinine 2.6 mg/dL (0.6-1.0) H 09/29/23 04:09
eGFR 20.11 09/29/23 04:09
Glucose 189 mg/dl (70-99) H 09/29/23 04:09
Calcium 9.7 mg/dl (8.4-10.2) 09/29/23 04:09
Phosphorus 5.0 mg/dl (2.5-4.5) H 09/21/23 19:10
Tmr-D-Tmxbojreulr Pept > 74348 pg/ml 09/29/23 04:09
Albumin 3.7 g/dl (3.5-5.0) 09/21/23 14:07
Physical Exam
-
Vital Signs:
Vital Signs
Temp Pulse Resp BP Pulse Ox
98.8 F 85 18 130/63 93
09/29/23 12:00 09/29/23 14:18 09/29/23 14:18 09/29/23 14:18 09/29/23 14:18
Cardiovascular:: Regular rate and rhythm
Respiratory:: Bilateral: Coarse
Lung Excursion:: Normal
Abdomen:: Nontender and Soft
Bowel Sounds:: Normal
Extremity Edema:: None: Bilateral:
Syed Catheter: No
--- NOTE | 2023-09-29 15:28 | VNURNOTE ---
[facility] after review of chart and discussion with patient and spouse.
Patient asking about home O2, walking test on 09/27 did not qualify.
Patient and spouse asking about privately paying for home O2.
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
[2023-09-29] MEDS: LASIX 60 MG IV (17:26)
[2023-09-29] MEDS: TOPROL XL 25 MG PO (17:27)
[2023-09-29] MEDS: CYMBALTA DELAYED RELEASE 30 MG PO (21:42)
[2023-09-29] MEDS: NEURONTIN 300 MG PO (22:01)
[2023-09-29] MEDS: XANAX 0.25 MG PO (22:01)
[2023-09-30] VITALS (9 sets, daily range): BP systolic 127–143; BP diastolic 75–91; PULSE 82; O2SAT 93–94; BMI 21.9
--- NOTE | 2023-09-30 03:38 | DOWNTIME ---
There was a [employer] Downtime on 09/30/2023 from 0100 to 09/30/2023 at 0337. Downtime documentation of patient's care, including medication administrations, has been reconciled in the electronic record per guidelines. Refer to the
patient's paper chart under the miscellaneous tab to see printed paper medication records and downtime forms.
[2023-09-30] MEDS: SYNTHROID 100 MCG PO (05:27)
[2023-09-30 06:59] LABS: Hematocrit 26.3 % (37.0-47.0); Hemoglobin 8.6 g/dL (12.0-16.0); Mean Corp Hgb Conc. 32.7 g/dL (33.0-37.0); Mean Corpuscular Volume 91.6 fL (81.0-99.0); Mean Platelet Volume 10.6 fL (7.4-10.4); Platelet Count 488 10^3/uL (130-400); Red Blood Cell Count 2.87 10^6/uL (4.20-5.40); Red Cell Dist. Width 15.5 % (11.5-14.5); White Blood Cell Count 22.2 10^3/uL (4.8-10.8)
[2023-09-30] MEDS: XOPENEX 0.63 MG INHALANT SOLUTION 0.630000000000000004 MG INH ×3 (07:18→19:09)
[2023-09-30] MEDS: PULMICORT 0.5 MG INH ×2 (07:18→19:09)
[2023-09-30 07:26] LABS: Blood Urea Nitrogen 70 mg/dl (7-17); Calcium 9.4 mg/dl (8.4-10.2); Carbon Dioxide 23 mmol/L (22-30); Chloride 90 mmol/L (98-107); Estimated Creatinine Clearance 16 ml/min; Glucose 203 mg/dl (70-99); Potassium 4.2 mmol/L (3.5-5.1); Sodium 130 mmol/L (135-145); eGFR 14.08
--- NOTE | 2023-09-30 08:29 | W.PN.CD ---
Today's Communication / Plan
-
-
-
Agree with holding diuretic
-
-
Impression / Plan
-
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
chest pressure, prompting cardiac catheterization, at which time she went into flash pulmonary edema from hypertensive crisis, requiring intubation and aggressive BP management.
Severe worsened SUAD on top of CKD
- Suspect too rapid diuresis
HFmidrangeEF, acute on chronic
- Dry weight uncertain but LVEDP = 25 mmHg, PCWP = 25 mmHg at 68.0 kg.
- Goal weight may still be 61-62 kg but perhaps 63-64 kg b BUT it is possible that we simply need to diurese more slowly
- Now on HF BB
- If renal function stays stable we certainly can slowly add standard GDMT: RAAS-inhib, SGLT inhibitor, and MRA in addition to a loop diuretic and HF BB
- Discussed yesterday with nephrology and we agree that adding GDMT can be done once close to dry weight and renal function proves to be stable ==> outpateint
- Diuresis now on hold
Single vessel CAD with chronic RCA occlusion. Cath this admit
PAD/aortic atherosclerosis
-Recent infrarenal aorta/iliac revascularization for potentially atheroembolism (AFX 25-90/16-30, 28-95 proximal extension).
-CTA post procedure comments on residual mural thrombus in descending thoracic aorta.
-Dr. Brooks saw in ER and reports vascular issues stable.
-Apixaban restarted on 09/25/2023
HTN
- Goal BP includes consideration of her complex cerebral vascular disease
COPD=> now on IV steroids
Moyamoya disease, prior carotid bypass.
-Previously recommended SBP of 140-160 to maintain cerebral perfusion. However, patient reports that neurologist said okay to bring down BP's a bit (slowly) and do neuro checks.
Subjective:
Feels well
Physical Exam
Vital Signs/Labs
Vital Signs
Temp Pulse Resp BP Pulse Ox
97.4 F 82 16 134/91 95
09/30/23 07:12 09/30/23 07:27 09/30/23 07:27 09/30/23 07:12 09/30/23 07:27
09/29/23 09/30/23 10/01/23
06:59 06:59 06:59
Actual Weight 62.1 kg 63.503 kg
09/30/23 06:41
09/30/23 06:41
PT 16.6 Sec (11.4-14.6) H 09/26/23 04:26
INR 1.36 09/26/23 04:26
APTT 49.4 Sec (23.4-35.0) H 09/26/23 04:26
Magnesium 1.8 mg/dl (1.6-2.3) 09/28/23 05:32
Triglycerides 143 mg/dl (10-149) 09/22/23 03:57
LDL Cholesterol, Calc 46 mg/dl 09/22/23 03:57
VLDL Cholesterol, Calc 28 mg/dl (0-30) 09/22/23 03:57
HDL Cholesterol 44 mg/dl 09/22/23 03:57
09/21/23 09/29/23
14:07 04:09
Mnd-R-Yglcgskzlxx Pept > 98477 > 53592
Physical Exam
Constitutional: No acute distress
EENT: Anicteric
Cardiovascular: Rhythm & rate is regular and Pedal edema is absent
Respiratory: Respiratory effort normal and Lungs clear to auscul.
GI: Soft and Distention absent
Neuro/Psych: AO x 3
Data Reviewed
-
Date of Service: September 30, 2023
[2023-09-30] MEDS: LASIX IV (08:41)
[2023-09-30] MEDS: MIRALAX 17 GRAMS PO (08:57)
[2023-09-30] MEDS: SENOKOT-S 1 TABLET PO (08:58)
[2023-09-30] MEDS: ELIQUIS 5 MG PO ×2 (08:58→20:10)
[2023-09-30] MEDS: LIPITOR 80 MG PO (08:58)
[2023-09-30] MEDS: VITAMIN D3 (cholecalciferol) 50 MCG PO (08:59)
[2023-09-30] MEDS: LOW STRENGTH ASPIRIN 81 MG PO (08:59)
[2023-09-30] MEDS: SOLU-MEDROL PF 60 MG IV (08:59)
--- NOTE | 2023-09-30 09:38 | W.PN.PUL3 ---
Today's Communication / Plan
-
Diuresis as per cardiology/nephrology --> on 09/28 nephro raised to 60mg BID from 40mg IV BID --> now pt with SUAD --> holding lasix, I will give back small amount of fluid with NS 0.5L bolus + albumin and liberalize fluid restriction to 64oz
Systemic steroids started on 09/27 and will wean as tolerated --> wean down to 40mg IV q12hr today from 60mg IV q12hr --> hopefully can TRX to prednisone tomorrow
Up OOB as tolerated
PT/OT
Trend sCr
Assessment
-
Impression:
Acute hypoxemic respiratory failure due to pulmonary edema requiring intubation and mechanical ventilation-elevated filling pressures on right heart catheterization 09/21/2023 - extubated 09/22/2023
Acute on chronic heart failure with preserved ejection fraction/non-ST elevation myocardial infarction? Type II
Chest x-ray 09/21/2023: Reviewed showed mild cardiomegaly. Mild pulmonary vascular congestion. Small right pleural effusion.
Hypertensive urgency
Chronic anemia
Chronic leukocytosis
SUAD likely due to over-diuresis
Conditions present prior admission:
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
COPD
Moderate obstruction with positive/significant bronchodilator response, follows Dr White
Chronic cough noted
Upper airway cough syndrome
Moderate cigarette smoker (10-19 cigs/day) with longstanding tobacco abuse with [id number] history
TIA, recurrent
Ovarian cancer diagnosed age (no chemo, RT)
Hypertension
Hypercholesterolemia
Hypothyroidism
Moyamoya disease
CAD with occluded RCA
CKD 3/4
Vulva cancer (no RT, chemotherapy)
PAD
Appendectomy 02/1992
Hysterectomy, BSO, omentectomy 02/1992
Partial vulvectomy 2009
Brain bypass x3
Appendectomy
Plan:
Clinically improved
Remains off vasopressors.
Oxygen supplementation improved down to RA after cardiology started steroids on 09/27
Continues to complain of orthopnea. Occasional chest tightness. --> Chest x-ray from 09/28 shows persistent small bilateral pleural effusions with increased pulm vascular congestion, similar to last CXR on 09/25/2023 although it appears her left
hemithorax has slightly better aeration.; proBNP also very high at >27,000
PA catheter has been discontinued 09/25/2023
Responding to IV diuresis, but considering proBNP still remains at >27,000 with CXR findings, Lasix was increased by nephrology; however today sCr 3.5 and lasix now on hold
-
Extubated 09/22/2023.
Continue to wean down oxygen as able.
Chest x-ray 09/25/2023: Reviewed,PA catheter in adequate position. Slightly worsening left basilar and retrocardiac opacity likely atelectasis/pleural effusion. Pulmonary vascular congestion improved.
Chest x-ray 09/29/2023: Reviewed; Pulmonary vascularity borderline prominent; Mild cardiomegaly; Small bilateral pleural effusions.
During this hospital stay no bronchospasm noted.
-
Acute on chronic heart failure with reduced ejection fraction
Status post right heart catheterization 09/21/2023:
1. Right dominant circulation with chronic total occlusion of the proximal RCA, collateralized by the left system.
3. Hypertensive emergency.
4. Acute congestive heart failure.
5. Severely elevated filling pressures (LVEDP = 25 mmHg, PCWP = 25 mmHg at 68.0 kg).
. Severe vasculopathy including moyamoya status post carotid artery bypass and recent aortoiliac angioplasty and stent placement.
-
Cardiology correspondence reviewed:
Echocardiogram: 09/22/2023 Mildly reduced left ventricular ejection fraction. Inferior wall and apical hypokinesis. LVEF 40%. No significant valvular disease. Normal right atrium. Normal right ventricle.
Status post Bumex drip
Continue IV diuretics per cardiology and nephrology.
Her weight is trending lower.
Follow renal function and electrolytes.
-
Back on oral anticoagulants with Eliquis since 09/25/2023
Monitor for bleeding.
Continue to monitor hemoglobin. Patient is anemic but has been stable. Anemia contributing to shortness of breath as well.
Since she now has an SUAD, I will give her a dose of albumin + NS 500cc bolus and liberalize her fluid restriction to 64 ounces
Trend her sCr
-
Low-grade fevers-possibly aspiration pneumonitis. Resolved.
Never started on antibiotics.
Chronic leukocytosis.
-
Hypoxemic respiratory failure: Improved with diuresis down to RA as of 09/28
Not bronchospastic on exam
Encourage incentive spirometry
Increase physical activity. Physical therapy has been ordered.
Steroids started on 09/27 by cardiology --> start weaning down steroids today to 40mg IV q12hr (solumedrol)
-
Glycemic control: Insulin as needed.
Target blood sugar 140-180
-
COPD without bronchospasm.
Severe COPD via PFT from September 14, 2023 with post BD FEV1 1.36 L / 49%. Very severe gas exchange capacity defect with DLCO: 34% (DLco/VA: 45%)
Continue Pulmicort twice a day
Continue Xopenex 3 times a day
DuoNebs as needed. Avoid beta agonist as able.
I am amenable to starting systemic steroids to see if this improves her SOB-cardiology started steroids on 09/27 with solumedrol 60mg IV q12hr , and wean as tolerated --> reduce today to 40mg IV q12hr. Restart outpatient inhalers upon discharge
Eventual outpatient follow-up with Dr. Choudhury
May consider repeating imaging of the chest in the future if symptoms persist. Based on prior imaging of the chest there is no evidence for interstitial lung disease, there is no significant emphysema to my view on 08/2022.
-
Tolerating diet.
Physical therapy as tolerated
Occupational Therapy as tolerated
-
-
Pulmonary will continue to follow briefly for history of COPD and hypoxemia -she already has appointment set up with me on 11/03/2023. I will try to get this moved up.
Total time spent today was 35 minutes for this encounter. Time includes reviewing laboratory test/imaging results, reviewing pertinent medical records, obtaining and reviewing medical history, performing an appropriate exam, ordering medications,
tests and procedures. Time also includes documentation of this encounter, coordinating patient care and communicating with other healthcare professionals. Total time does not include separately billed tests performed on this date of service.

Diagnostic Data
Chest X-ray: 09/29/2023-Pulmonary vascularity borderline prominent; mild cardiomegaly; Small bilateral pleural effusions.
Chest X-ray: 09/07/2023-Small right and trace left pleural effusions with associated probable atelectasis, slightly progressed.
Chest X-Ray: 09/01/23- No acute cardiopulmonary process.
CT Scan: AP 06/25/23- IMPRESSION:
1. Advanced aortic atherosclerotic changes without aneurysmal dilation. Irregular mural thrombus along distal thoracic and abdominal aorta. Moderate stenosis of the infrarenal aorta.
2. High-grade stenosis of the proximal right common iliac artery. Moderate stenosis left common iliac artery. Left profunda femoral stenosis. Three-vessel runoff on the right and 2 vessel runoff on left.
3. Bilateral renal cortical scarring. Atrophic changes of the left kidney as compared with the right.
[facility] 04/09/23- CONCLUSIONS
1: Inferobasal akinesis with EF 54%
2: Single-vessel CAD (chronic total occlusion of the proximal RCA)
3. Recommend continued medical therapy with aspirin and high intensity statin
Echo 09/08/23:
Normal LV size with normal systolic function.
LVEF is 55% by Aguilar's method of discs..
RCA territory mild hypokinesis.
Mild concentric LVH.
Stage I diastolic dysfunction suggestive of abnormal relaxation.
Normal right ventricular size and function.
Mild mitral regurgitation.
Echo: 03/23/23- Normal biventricular size and systolic function without regional wall motion abnormality. Possible basal to mid inferior hypokinesis. Mild concentric left ventricular hypertrophy.
No significant valvular disease. Compared to previous echo 05/10/12, the possible basal inferior hypokinesis is new.
PFT's: 05/28/23- FVC was 2.06L or 58% predicted. FEV1 was 1.10L or 40% predicted. Ratio 53. Post FEV1 was 1.22L or 44% predicted, 11% change.
Lung volumes: TLC was 4.05L or 74% predicted. RV/TLC was 49%. Diffusion was 10.17 or 42% predicted. When adjusted for hemoglobin was unchanged.
Spirometry demonstrates severe obstruction. There was significant bronchodilator response in the FVC. Lung volumes demonstrate mild restriction. There is borderline air trapping. There is a moderate diffusion impairment.
Reports and relevant images were personally reviewed.
Subjective Data
-
Date of Service:
Date of Service: September 30, 2023
Chief Complaint: Pulmonary Follow Up
Subjective:
Patient seen today at bedside. Urine output has reduced today. She remains normotensive. Afebrile overnight. She says that she actually feels better with less shortness of breath, although she now has lots of leg weakness. She denies chest
pain, headache, fevers or chills. Having some difficulty falling asleep.
Review of Systems
General: Other (Negative unless mentioned above)
Objective Data
Data Reviewed
Vital Signs / I&O / Oxygen:
Vital Signs
Temp Pulse Resp BP Pulse Ox
97.7 F 82 24 136/88 92
09/30/23 11:26 09/30/23 11:26 09/30/23 11:26 09/30/23 11:26 09/30/23 11:26
Intake and Output
09/29/23 09/30/23 10/01/23
06:59 06:59 06:59
Intake Total 720 / 720
Output Total 875 / 875 300 / 300
Balance -875 / -875 420 / 420
SaO2 [A/C] 93
SaO2 92
Nasal Cannula flow liters per 2
minute
Physical Exam
General: Respiratory Distress (negative) and Comfortable
HEENT: Normocephalic and Anicteric
Cardiovascular: S1-S2 and Peripheral Edema (negative)
Respiratory: Wheeze (negative), Crackles (Bilateral (bases to midlung ramos bilaterally)) and Rhonchi (negative)
GI: Soft, Non Distended, Non Tender and Normal Bowel Sounds
Neurology: AO x 3 and Tremors (negative)
Skin: Warm, Dry and Jaundice (negative)
Labs/Micro/Reports
Lab Data
09/30/23 06:41
09/30/23 06:41
--- NOTE | 2023-09-30 11:11 | W.PN.HOSP.TC ---
Today's Communication/Plan
-
hold lasix
trend bmp
decrease steroids-quick taper
nephro recs
Assessment / Plan
Assessment / Plan
63-year-old female with past medical history of PAD with recent aortoiliac stent, CAD, CKD IV, moyamoya syndrome, hypothyroidism, hyperlipidemia, hypertension, ovarian cancer, TIA, COPD, brain bypass x 3 came to the hospital with chest pain and
shortness of breath. EKG with new ST depressions. Initial troponin is 0.215 with a proBNP greater than 27,000, creatinine 2.0 (baseline). She was taken urgently to cardiac cath complicated by acute resp failure requiring intubation; shown to have
severely elevated filling pressures. No new CAD. She required intubation, admitted to ICU with [place] catheter placed, IV Bumex gtt.
.
#Acute hypoxemic respiratory failure secondary pulmonary edema requiring intubation mechanical ventilation, elevated filling pressures on the catheterization
#Hypertensive emergency with flash pulmonary edema
#Acute on chronic congestive heart failure with preserved ejection fraction
#Non-[place] troponin elevation
-cardiac cath without significant CAD;+ elevated pressures
-required intubation in vp lab 09/20; s/p extubation on 09/21
-Bumex gtt stopped 09/23
-Lasix uptitrated to 60 mg twice daily. Hold for now as creatinine up trended.
-[place] catheter now out
-Per patient discussion with her primary neurologist who stated okay for blood pressure to be lowered further if needed and to be monitored neurologic
-continue aspirin/statin restarted
-Plan for of goal-directed medical therapy pending stabilization of creatinine probably as outpatient.
#Acute COPD exacerbation
-Continue bronchodilators. Severe COPD recent PFTs.
-Not severely wheezing or bronchospastic. downtitration of steroids to 40mg q12h-d/w with pulm
# Dyspnea likely multifactorial CHF and COPD
Plan as above
improving
on room air
#Acute kidney injury on CKD stage IIIb
-Baseline ~2. Did received contrast on admission. However, greater than 1 week at this point.
-creatinine bumped ?due to over diuresis.
-BUN severely elevated ?due to steroids
-Per cards, monitor clinically and no plan for repeat RHC.
-hold IV lasix for now. trend bmp.
-appreciate renal consult
#Hyponatremia ?due to hypovolemia 2/2 diuresis
-trend for now. Lasix been held
-If no improvement check urine studies in 24h.
Hypokalemia
-repleted
# Chronic leukocytosis worsening in setting of sterodis
Fever 09/21, likely 2/2 aspiration pneumonitis
-afebrile overnight and does not appear infected since
# Normocytic anemia
-No active bleeding
-Continue to trend, stable
-iron studies - anemia inflammation
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
-bilaterally s/p diagnostic arteriogram, AFX stent graft placement, balloon angioplasty 09/01/23
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
#Livedo reticularis
-vascular following; no acute issues from vascular standpoint
#essential HTN
-started on toprol. Tolerating low BP so far.
#anxiety
-duloxetine continued
#hypothyroidism
-levothyroxine continued
# ex Smoker
#Mixed hyperlipidemia
-statin continued
#Moyamoya syndrome, 3 surgical interventions
Per patient discussion with her primary neurologist who stated okay for blood pressure to be lowered further if needed and to be monitored neurologically.
#DVT prophylaxis - Eliquis
#CODE status
-full code
Anticipated Discharge: > 48 hours
Subjective/Interval History
-
Date of Service: September 30, 2023
on room air
states breathing has improved
feels overall weak
denies LE edema
Objective Data
-
Labs:
Laboratory Results
09/30/23
06:41
WBC 22.2 H
Hgb 8.6 L
Hct 26.3 L
Plt Count 488 H
Sodium 130 L
Potassium 4.2
Chloride 90 L
Carbon Dioxide 23
BUN 70 H
Creatinine 3.5 H
Glucose 203 H
Calcium 9.4
Vital Signs:
Vital Signs
Temp Pulse Resp BP Pulse Ox
97.4 F 82 16 134/91 95
09/30/23 07:12 09/30/23 07:27 09/30/23 07:27 09/30/23 07:12 09/30/23 10:43
I&O
09/29/23 09/30/23 10/01/23
06:59 06:59 06:59
Intake Total 720 / 720
Output Total 875 / 875 300 / 300
Balance -875 / -875 420 / 420
Data Reviewed
-
Total Time Spent with Patient (in minutes): 55
--- NOTE | 2023-09-30 13:58 | CM ---
Theresine plans to go home tomorrow with her and [facility].
PCP: Simon Huston
Pharmacy: [facility]
Plan: D/C home with [facility]N
--- NOTE | 2023-09-30 16:08 | W.PN.NEPH.PH ---
Today's Communication / Plan
-
Hold Lasix
Check postvoid bladder scan
Assessment/Plan
-
Impression:
Chest pain shortness of breath: Congestive heart failure decompensation/non-ST elevation NV
Chronic kidney disease stage IV with baseline creatinine of 2
Hypertension urgency
Aorta iliac revascularization following potential atheroembolism August 2023
COPD
Moyamoya disease/complex peripheral arterial disease
Intubation
echo EF 40-45%, WMA
Plan:
Kidney function climbing to 3.5 following diuresis,weights down
maintain FR for hyponatremia
pulmonary capillary wedge pressure of 25 following cardiac cath (no intervention performed) at wt of 65.7kg 09/20. weights downtrending
Hold further Lasix
give potassium
follow labs
Patient could still be a candidate for GDMT after stabilization of kidney function
d/w pt and team
-
-
Date of Service: September 30, 2023
CC / HPI / ROS
-
Chief Complaint:
CKD
History of Present Illness:
cr elevated to 3.5
sodium down to 130
s/p extubation 09/21
hg b at 8.6
Hemodynamically stable
Review of Systems:
sob better
weights down
no cp, or n/v
Urine output not recorded
Labs
-
Labs:
WBC 22.2 10^3/uL (4.8-10.8) H 09/30/23 06:41
RBC 2.87 10^6/uL (4.20-5.40) L 09/30/23 06:41
Hgb 8.6 g/dL (12.0-16.0) L 09/30/23 06:41
Hct 26.3 % (37.0-47.0) L 09/30/23 06:41
Plt Count 488 10^3/uL (130-400) H 09/30/23 06:41
Sodium 130 mmol/L (135-145) L 09/30/23 06:41
Potassium 4.2 mmol/L (3.5-5.1) 09/30/23 06:41
Chloride 90 mmol/L (98-107) L 09/30/23 06:41
Carbon Dioxide 23 mmol/L (22-30) 09/30/23 06:41
BUN 70 mg/dl (7-17) H 09/30/23 06:41
Creatinine 3.5 mg/dL (0.6-1.0) H 09/30/23 06:41
eGFR 14.08 09/30/23 06:41
Glucose 203 mg/dl (70-99) H 09/30/23 06:41
Calcium 9.4 mg/dl (8.4-10.2) 09/30/23 06:41
Phosphorus 5.0 mg/dl (2.5-4.5) H 09/21/23 19:10
Sti-N-Crzysvsotbt Pept > 61012 pg/ml 09/29/23 04:09
Albumin 3.7 g/dl (3.5-5.0) 09/21/23 14:07
Physical Exam
-
Vital Signs:
Vital Signs
Temp Pulse Resp BP Pulse Ox
98.1 F 81 16 132/77 92
09/30/23 15:54 09/30/23 15:54 09/30/23 15:54 09/30/23 15:54 09/30/23 15:54
Cardiovascular:: Regular rate and rhythm
Respiratory:: Bilateral: Coarse
Lung Excursion:: Normal
Abdomen:: Nontender and Soft
Bowel Sounds:: Normal
Extremity Edema:: None: Bilateral:
Portillo Catheter: No
--- NOTE | 2023-09-30 16:43 | CHAP ---
Bit Bender request relayed to Monsignor Lewis. He anticipates arriving today around 5pm.
[2023-09-30] MEDS: TOPROL XL 25 MG PO (17:13)
--- NOTE | 2023-09-30 18:20 | PTCARENOTE ---
Bladder scan for 20cc
[2023-09-30] MEDS: FLEXBUMIN 100 IV (20:07)
[2023-09-30] MEDS: SOLU-MEDROL PF 40 MG IV (20:10)
[2023-09-30] MEDS: MUCINEX 1200 MG PO (20:10)
[2023-09-30] MEDS: CYMBALTA DELAYED RELEASE 30 MG PO (20:12)
[2023-09-30] MEDS: SENOKOT-S PO (20:14)
[2023-09-30] MEDS: MELATONIN 7.5 MG PO (22:22)
[2023-09-30] MEDS: NEURONTIN 300 MG PO (22:24)
[2023-09-30] MEDS: XANAX 0.25 MG PO (22:24)
[2023-09-30] MEDS: NSS 500 IV (22:46)
[2023-09-30 23:44] LABS: Glucose - Point of Care 239 mg/dl (70-99)
[2023-10-01] VITALS (7 sets, daily range): BP systolic 124–148; BP diastolic 76–93; BMI 22.3
--- NOTE | 2023-10-01 00:21 | W.PN.UPDATE ---
Update Note
Progress Note Update
Per nursing staff, patient is complaining of SOB, vital signs 97.7, 84 HR, 143/83 21 RR 92 on 2L, bs 239. Patient also complained of RT shoulder pain, patient denied fall or trauma.
-On assessment, patient complained of productive cough, diminished lung sound on lung exam.
-RT shoulder with FROM, no swelling, bruises noted in during the exam. Patient mentioned that pain is been there since admission time, shoulder x-ray offered but the patient refused at the mean time.
-New orders of
. Chest xray, Robitussin DM, and continue with duo nebs as needed for SOB.
. lidocaine patch to the RT shoulder for now and consider RT should x-ray with persistent pain and if the patient agree.
[2023-10-01] MEDS: LIDOCAINE 4% PATCH 1 PATCH TOPICAL ×2 (00:31→21:37)
[2023-10-01] MEDS: MYLICON 80 MG PO (00:31)
[2023-10-01] MEDS: TYLENOL 500 MG PO (00:33)
[2023-10-01] MEDS: DUONEB 3 ML INH ×2 (00:45→23:14)
--- NOTE | 2023-10-01 01:00 | PTCARENOTE ---
IV albumin and 500 cc IV fluid bolus given as ordered. After receiving IV albumin, patient states she woke up feeling like she 'can't breathe', 'bloated' and with 7/10 right shoulder pain. Pulse ox 91% on RA, patient placed on 2L of oxygen and came
up to 94%. After bolus, patient voided 120 cc with a PVR of 4 cc. Patient also diaphoretic, blood sugar 239. VSS. GROUND OPERATIONS CREW MEMBER made aware and up to floor to see patient. Portable CXR ordered, lidocaine patch to right shoulder, and 1x dose of mylicon. PRN
duoneb also given by RT. Patient resting comfortably, plan of care ongoing.
[2023-10-01] MEDS: SYNTHROID 100 MCG PO (05:46)
[2023-10-01] MEDS: XANAX 0.25 MG PO ×2 (05:46→10:22)
[2023-10-01] MEDS: PULMICORT 0.5 MG INH ×2 (06:57→19:05)
[2023-10-01] MEDS: XOPENEX 0.63 MG INHALANT SOLUTION 0.630000000000000004 MG INH ×3 (06:57→19:05)
[2023-10-01 08:22] LABS: Blood Urea Nitrogen 86 mg/dl (7-17); Calcium 9.2 mg/dl (8.4-10.2); Carbon Dioxide 18 mmol/L (22-30); Chloride 88 mmol/L (98-107); Estimated Creatinine Clearance 14 ml/min; Glucose 181 mg/dl (70-99); Potassium 4.5 mmol/L (3.5-5.1); Sodium 129 mmol/L (135-145); eGFR 11.64
[2023-10-01] MEDS: MIRALAX PO (09:10)
[2023-10-01] MEDS: SENOKOT-S PO ×2 (09:11→21:37)
[2023-10-01] MEDS: VITAMIN D3 (cholecalciferol) 50 MCG PO (09:12)
[2023-10-01] MEDS: SOLU-MEDROL PF 40 MG IV ×2 (09:12→21:38)
[2023-10-01] MEDS: MUCINEX 1200 MG PO ×2 (09:12→21:36)
[2023-10-01] MEDS: ELIQUIS 5 MG PO ×2 (09:12→21:37)
[2023-10-01] MEDS: LOW STRENGTH ASPIRIN 81 MG PO (09:12)
[2023-10-01] MEDS: LIPITOR 80 MG PO (09:13)
--- NOTE | 2023-10-01 10:49 | W.PN.CD ---
Today's Communication / Plan
-
IV Lasix 80 Now and likely daily
High risk, very
Impression / Plan
-
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
chest pressure, prompting cardiac catheterization, at which time she went into flash pulmonary edema from hypertensive crisis, requiring intubation and aggressive BP management.
Severe worsened SUAD on top of CKD
- Suspect too rapid diuresis and cardiorenal syndrome
- But at 63.5 kg she felt well but now at 64.5 kg she has her HF symptoms return
HFmidrangeEF, acute on chronic
- Dry weight less than 64.5 and likely close to 63.5 kg. At 68 kg LVEDP = 25 mmHg, PCWP = 25 mmHg
- Now on HF BB
- If renal function stays stable we certainly can slowly add standard GDMT: RAAS-inhib, SGLT inhibitor, and MRA in addition to a loop diuretic and HF BB
- Nephrology and we agree that adding GDMT can be done once close to dry weight and renal function proves to be stable ==> outpatient
Single vessel CAD with chronic RCA occlusion. Cath this admit
PAD/aortic atherosclerosis
-Recent infrarenal aorta/iliac revascularization for potentially atheroembolism (AFX 25-90/16-30, 28-95 proximal extension).
-CTA post procedure comments on residual mural thrombus in descending thoracic aorta.
-Dr. Brooks saw in ER and reports vascular issues stable.
-Apixaban restarted on 09/25/2023
HTN
- Goal BP includes consideration of her complex cerebral vascular disease
COPD=> now on IV steroids
Moyamoya disease, prior carotid bypass.
-Previously recommended SBP of 140-160 to maintain cerebral perfusion. However, patient reports that neurologist said okay to bring down BP's a bit (slowly) and do neuro checks.
Subjective:
Feels well
Physical Exam
Vital Signs/Labs
Vital Signs
Temp Pulse Resp BP Pulse Ox
97.3 F 83 20 137/88 97
10/01/23 07:35 10/01/23 09:57 10/01/23 07:35 10/01/23 09:57 10/01/23 07:35
09/30/23 10/01/23 10/02/23
06:59 06:59 06:59
Actual Weight 63.503 kg 64.467 kg
09/30/23 06:41
10/01/23 06:43
PT 16.6 Sec (11.4-14.6) H 09/26/23 04:26
INR 1.36 09/26/23 04:26
APTT 49.4 Sec (23.4-35.0) H 09/26/23 04:26
Magnesium 1.8 mg/dl (1.6-2.3) 09/28/23 05:32
Triglycerides 143 mg/dl (10-149) 09/22/23 03:57
LDL Cholesterol, Calc 46 mg/dl 09/22/23 03:57
VLDL Cholesterol, Calc 28 mg/dl (0-30) 09/22/23 03:57
HDL Cholesterol 44 mg/dl 09/22/23 03:57
09/21/23 09/29/23
14:07 04:09
Uaw-I-Daemyhndjlr Pept > 07759 > [id number]
Physical Exam
Constitutional: No acute distress
Cardiovascular: Rhythm & rate is regular and Pedal edema is absent
Respiratory: Crackles Present (at bases)
GI: Soft
Neuro/Psych: AO x 3
Data Reviewed
-
Date of Service: October 01, 2023
--- NOTE | 2023-10-01 11:15 | W.PN.HOSP.TC ---
Today's Communication/Plan
-
Trial of IV lasix
trend bmp
xanax uptitrated
?dec IV steroids
Assessment / Plan
Assessment / Plan
63-year-old female with past medical history of PAD with recent aortoiliac stent, CAD, CKD IV, moyamoya syndrome, hypothyroidism, hyperlipidemia, hypertension, ovarian cancer, TIA, COPD, brain bypass x 3 came to the hospital with chest pain and
shortness of breath. EKG with new ST depressions. Initial troponin is 0.215 with a proBNP greater than 27,000, creatinine 2.0 (baseline). She was taken urgently to cardiac cath complicated by acute resp failure requiring intubation; shown to have
severely elevated filling pressures. No new CAD. She required intubation, admitted to ICU with Herman-Yovany catheter placed, IV Bumex gtt.
.
#Acute kidney injury on CKD stage IIIb
#Mild hyponatremia
-Baseline ~2. Did received contrast on admission. However, greater than 1 week at this point.
-creatinine bumped to 4.1 today.
-BUN severely elevated ?due to steroids
-Per cards, monitor clinically and no plan for repeat RHC.
-Per d/w with cards/renal-okay to restart lasix as with decrease UOP/Wt uptrending.
-appreciate renal consult
#Acute hypoxemic respiratory failure secondary pulmonary edema requiring intubation mechanical ventilation, elevated filling pressures on the catheterization
#Hypertensive emergency with flash pulmonary edema
#Acute on chronic congestive heart failure with preserved ejection fraction
#Non-MA troponin elevation
-cardiac cath without significant CAD;+ elevated pressures
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
-Bumex gtt stopped 09/23
-Lasix uptitrated to 60 mg twice daily to daily.
-Herman-Yovany catheter now out
-Per patient discussion with her primary neurologist who stated okay for blood pressure to be lowered further if needed and to be monitored neurologic
-continue aspirin/statin restarted
-Plan for of goal-directed medical therapy pending stabilization of creatinine probably as outpatient.
-CXR on 09/30 am-reviewed bilateral pleural effusion. Stable. Cardiomegaly is stable.
#Acute COPD exacerbation
-Continue bronchodilators. Severe COPD recent PFTs.
-Not severely wheezing or bronchospastic. downtitration of steroids to 40mg [id number] consider further downtitration
# Dyspnea likely multifactorial CHF and COPD
Plan as above
improving
exacerbated at times due to severe anxiety/panic attacks
#Hyponatremia ?due to hypovolemia 2/2 diuresis
-trend for now. Lasix been held
-If no improvement check urine studies in 24h.
Hypokalemia
-repleted
# Chronic leukocytosis worsening in setting of sterodis
Fever 09/21, likely 2/2 aspiration pneumonitis
-afebrile overnight and does not appear infected since
# Normocytic anemia
-No active bleeding
-Continue to trend, stable
-iron studies - anemia inflammation
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
-bilaterally s/p diagnostic arteriogram, AFX stent graft placement, balloon angioplasty 09/01/23
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
#Livedo reticularis
-vascular following; no acute issues from vascular standpoint
#essential HTN
-started on toprol.
#anxiety/panic attacks
-duloxetine continued
-increase xanax to 0.5mg TID prn for now.
#hypothyroidism
-levothyroxine continued
# ex Smoker
#Mixed hyperlipidemia
-statin continued
#Moyamoya syndrome, 3 surgical interventions
Per patient discussion with her primary neurologist who stated okay for blood pressure to be lowered further if needed and to be monitored neurologically.
#DVT prophylaxis - Eliquis
#CODE status
-full code
d/w with spouse at bedside
d/w with pulmonary, cardiology and nephrology.
Anticipated Discharge: > 48 hours
Subjective/Interval History
-
Date of Service: October 01, 2023
Pt concern with her elevated cr
anxious and spouse at bedside states patient is having panic attack
pt feels overwhelmed with hospital course so far
states only urinated around 100cc
Objective Data
-
Labs:
Laboratory Results
10/01/23
06:43
Sodium 129 L
Potassium 4.5
Chloride 88 L
Carbon Dioxide 18 L
BUN 86 H
Creatinine 4.1 H*
Glucose 181 H
Calcium 9.2
Vital Signs:
Vital Signs
Temp Pulse Resp BP Pulse Ox
97.3 F 83 20 137/88 97
10/01/23 07:35 10/01/23 09:57 10/01/23 07:35 10/01/23 09:57 10/01/23 07:35
I&O
09/30/23 10/01/23 10/02/23
06:59 06:59 06:59
Intake Total 720 / 720 1640 / 1640
Output Total 300 / 300 270 / 270
Balance 420 / 420 1370 / 1370
Physical Exam
-
General: No Apparent Distress and Comfortable; Negative Respiratory Distress
HEENT: Normocephalic, Atraumatic, Moist Mucous Membranes and Oxygen
Respiratory: Clear to Auscultation
Cardiac: Regular Rhythm and S1/S2
GI: Soft, Nontender, Nondistended and Normal Bowel Sounds
Musculoskeletal: No Edema
Skin: Warm and Dry; Negative Rash
Neuro: Awake, Alert, Oriented, AO x 3, No Motor Deficits and Nonfocal/Grossly Intact; Negative Tremors, Sedated, Slurred Speech or Facial Droop
Psych: Anxious
Data Reviewed
-
Total Time Spent with Patient (in minutes): 55
[2023-10-01] MEDS: LASIX 80 MG IV (11:42)
[2023-10-01] MEDS: XANAX 0.5 MG PO ×2 (12:55→22:36)
--- NOTE | 2023-10-01 13:53 | PTCARENOTE ---
Pt is more SOB today than yesterday. She is on 4L NC, Lasix has been held. Dr Crespo saw her today and ordered 80 mg of lasix. The pt's BP has been stable. Urine output is minimal. Approx 250 overnight. no urine output since 5am, bladder scanned at
1200 and her bladder had 83ml, she voided 90 in the bedside commode. Cr 4.1, BUN 86. Increased xanax to help with anxiety. Pt rings appropriately to make her needs known.
--- NOTE | 2023-10-01 15:12 | CM ---
Several attempts to speak with Tara throughout the day were unsuccessful. She was in a deep sleep, did not respond to my voice, or to the telephone ringing at her bedside. Roomate stated that Tara had not been sleeping and needed to
sleep.
Discharge needs have changed; CM following for O2 needs and home health with VN.
--- NOTE | 2023-10-01 16:04 | W.PN.NEPH.PH ---
Today's Communication / Plan
-
IV Lasix
Follow BMP
Assessment/Plan
-
Impression:
Chest pain shortness of breath: Congestive heart failure decompensation/non-ST elevation WA
Chronic kidney disease stage IV with baseline creatinine of 2
Hypertension urgency
Aorta iliac revascularization following potential atheroembolism August 2023
COPD
Moyamoya disease/complex peripheral arterial disease
Intubation
echo EF 40-45%, WMA
Plan:
Kidney function climbing to 4.1 following diuresis,weights down but developed shortness of breath again last evening after holding diuretic,weight up, hyponatremia worsening
Chest x-ray personally reviewed notes interstitial edema
maintain FR for hyponatremia
pulmonary capillary wedge pressure of 25 following cardiac cath (no intervention performed) at wt of 65.7kg 09/20. weights downtrending
Lasix reinitiated, 60 mg IV twice daily
follow labs
Patient clinically high risk with decompensated congestive heart failure worsening renal failure requiring IV diuretics
Discussion about possible need for dialysis if unable to maintain volume status without potentiating profound azotemia and renal failure
Discussed with both patient and
Patient could still be a candidate for GDMT after stabilization of kidney function
-
-
Date of Service: October 01, 2023
CC / HPI / ROS
-
Chief Complaint:
CKD
History of Present Illness:
cr elevated to 4.1
sodium down to 129
s/p extubation 09/21
hg b at 8.6
Hemodynamically stable
Review of Systems:
sob worse last evening
weights up
no cp, or n/v
Urine output not recorded
Labs
-
Labs:
WBC 22.2 10^3/uL (4.8-10.8) H 09/30/23 06:41
RBC 2.87 10^6/uL (4.20-5.40) L 09/30/23 06:41
Hgb 8.6 g/dL (12.0-16.0) L 09/30/23 06:41
Hct 26.3 % (37.0-47.0) L 09/30/23 06:41
Plt Count 488 10^3/uL (130-400) H 09/30/23 06:41
Sodium 129 mmol/L (135-145) L 10/01/23 06:43
Potassium 4.5 mmol/L (3.5-5.1) 10/01/23 06:43
Chloride 88 mmol/L (98-107) L 10/01/23 06:43
Carbon Dioxide 18 mmol/L (22-30) L 10/01/23 06:43
BUN 86 mg/dl (7-17) H 10/01/23 06:43
Creatinine 4.1 mg/dL (0.6-1.0) H* 10/01/23 06:43
eGFR 11.64 10/01/23 06:43
Glucose 181 mg/dl (70-99) H 10/01/23 06:43
Calcium 9.2 mg/dl (8.4-10.2) 10/01/23 06:43
Phosphorus 5.0 mg/dl (2.5-4.5) H 09/21/23 19:10
Pxm-A-Ehtelmwzglp Pept > 02243 pg/ml 09/29/23 04:09
Albumin 3.7 g/dl (3.5-5.0) 09/21/23 14:07
Physical Exam
-
Vital Signs:
Vital Signs
Temp Pulse Resp BP Pulse Ox
97.7 F 78 24 124/78 96
10/01/23 15:44 10/01/23 15:44 10/01/23 15:44 10/01/23 15:44 10/01/23 15:44
Cardiovascular:: Regular rate and rhythm
Respiratory:: Bilateral: Coarse and Bilateral: Rales
Lung Excursion:: Normal
Abdomen:: Nontender and Soft
Bowel Sounds:: Normal
Extremity Edema:: None: Bilateral:
Portillo Catheter: No
--- NOTE | 2023-10-01 17:41 | W.PN.PUL3 ---
Today's Communication / Plan
-
Check CT chest to evaluate lung parenchyma
check CT abd/pelvis given worsening SUAD
Diuresis as per cardiology/nephrology --> on 09/28 nephro raised to 60mg BID from 40mg IV BID --> pt developed SUAD which is now worsening, not improved with IVF and albumin; Her SOB now is worse today --. IV lasix restarted. Continue to closely
monitor her Sx - if Sx worsens then would move her to higher level of care ([facility]) and would consider RHC if she does not improve despite diuresis.
Systemic steroids started on 09/27 and will wean as tolerated --> weaned down to 40mg IV q12hr on 09/29 from 60mg IV q12hr --> hopefully can TRX to prednisone over next 1-2 days depending on her clinical course
Up OOB as tolerated
PT/OT
Trend sCr
Assessment
-
Impression:
Acute hypoxemic respiratory failure due to pulmonary edema requiring intubation and mechanical ventilation-elevated filling pressures on right heart catheterization 09/21/2023 - extubated 09/22/2023
Acute on chronic heart failure with preserved ejection fraction/non-ST elevation myocardial infarction? Type II
Chest x-ray 09/21/2023: Reviewed showed mild cardiomegaly. Mild pulmonary vascular congestion. Small right pleural effusion.
Hypertensive urgency
Chronic anemia
Chronic leukocytosis
SUAD - DDx includes hypoperfusion from cardiorenal syndrome vs ATN from over-diuresis
Conditions present prior admission:
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
COPD
Moderate obstruction with positive/significant bronchodilator response, follows Dr White
Chronic cough noted
Upper airway cough syndrome
Moderate cigarette smoker (10-19 cigs/day) with longstanding tobacco abuse with [id number]-fbla history
TIA, recurrent
Ovarian cancer diagnosed age (no chemo, RT)
Hypertension
Hypercholesterolemia
Hypothyroidism
Moyamoya disease
CAD with occluded RCA
CKD 3/4
Vulva cancer (no RT, chemotherapy)
PAD
Appendectomy 02/1992
Hysterectomy, BSO, omentectomy 02/1992
Partial vulvectomy 2009
Brain bypass x3
Appendectomy
Plan:
She had been clinically improving but as of today she is more SOB, anxious and lethargic
Oxygen supplementation improved down to RA after cardiology started steroids on 09/27 --> she is now on NC at 4L/min
Continues to complain of chest tightness. --> Chest x-ray from 09/28 shows persistent small bilateral pleural effusions with increased pulm vascular congestion, similar to last CXR on 09/25/2023 although it appears her left hemithorax has slightly
better aeration.; proBNP also very high at >27,000
PA catheter has been discontinued 09/25/2023
Responded to IV diuresis, but considering proBNP still remains at >27,000 with CXR findings, Lasix was increased by nephrology; however sCr 3.5 worsening on 09/29 and it is even worse today --> check CT chest/abd/pelvis to evaluate lung parenchyma
and kidneys; continue to cautiously diurese; evaluate patient's symptoms daily - she may end up needing HD
-
Extubated 09/22/2023.
Continue to wean down oxygen as able.
Chest x-ray 09/25/2023: Reviewed,PA catheter in adequate position. Slightly worsening left basilar and retrocardiac opacity likely atelectasis/pleural effusion. Pulmonary vascular congestion improved.
Chest x-ray 09/29/2023: Reviewed; Pulmonary vascularity borderline prominent; Mild cardiomegaly; Small bilateral pleural effusions.
During this hospital stay no bronchospasm noted.
-
Acute on chronic heart failure with reduced ejection fraction
Status post right heart catheterization 09/21/2023:
1. Right dominant circulation with chronic total occlusion of the proximal RCA, collateralized by the left system.
3. Hypertensive emergency.
4. Acute congestive heart failure.
5. Severely elevated filling pressures (LVEDP = 25 mmHg, PCWP = 25 mmHg at 68.0 kg).
. Severe vasculopathy including moyamoya status post carotid artery bypass and recent aortoiliac angioplasty and stent placement.
-
Cardiology correspondence reviewed:
Echocardiogram: 09/22/2023 Mildly reduced left ventricular ejection fraction. Inferior wall and apical hypokinesis. LVEF 40%. No significant valvular disease. Normal right atrium. Normal right ventricle.
Status post Bumex drip
Continue IV diuretics per cardiology and nephrology.
trend her weight
Follow renal function and electrolytes.
-
Back on oral anticoagulants with Eliquis since 09/25/2023
Monitor for bleeding.
Continue to monitor hemoglobin. Patient is anemic but has been stable. Anemia contributing to shortness of breath as well.
Since she now has an SUAD, I gave her a dose of albumin + NS 500cc bolus on 09/29 and liberalized her fluid restriction to 64 ounces
Trend her sCr --> Cr worse today. Stop additional IVF, go back down on her fluid restriction, and lasix 80mg IV daily started by cardiology
-
Low-grade fevers-possibly aspiration pneumonitis. Resolved.
Never started on antibiotics.
Chronic leukocytosis.
-
Hypoxemic respiratory failure: Improved with diuresis down to RA as of 09/28
Not bronchospastic on exam
Encourage incentive spirometry
Increase physical activity. Physical therapy has been ordered.
Steroids started on 09/27 by cardiology --> started weaning down steroids on 09/29 to 40mg IV q12hr (solumedrol) from 60mg IV a12hr
-
Glycemic control: Insulin as needed.
Target blood sugar 140-180
-
COPD without bronchospasm.
Severe COPD via PFT from September 14, 2023 with post BD FEV1 1.36 L / 49%. Very severe gas exchange capacity defect with DLCO: 34% (DLco/VA: 45%)
Continue Pulmicort twice a day
Continue Xopenex 3 times a day
DuoNebs as needed. Avoid beta agonist as able.
I am amenable to starting systemic steroids to see if this improves her SOB-cardiology started steroids on 09/27 with solumedrol 60mg IV q12hr , and wean as tolerated --> reduced to 40mg IV q12hr on 09.29. Restart outpatient inhalers upon discharge
Eventual outpatient follow-up with Dr. Choudhury
Check CT chest/abd/pelvis given her worsening SOB today; Based on prior imaging of the chest there is no evidence for interstitial lung disease, and no significant emphysema on 09/02/2022.
-
Tolerating diet.
Physical therapy as tolerated
Occupational Therapy as tolerated
-
-
Pulmonary will continue to follow briefly for history of COPD and hypoxemia - she already has appointment set up with me on 11/03/2023. I will try to get this moved up.
Total time spent today was 50 minutes for this encounter. Time includes reviewing laboratory test/imaging results, reviewing pertinent medical records, obtaining and reviewing medical history, performing an appropriate exam, ordering medications,
tests and procedures. Time also includes documentation of this encounter, coordinating patient care and communicating with other healthcare professionals. Total time does not include separately billed tests performed on this date of service.

Diagnostic Data
Chest X-ray: 09/29/2023-Pulmonary vascularity borderline prominent; mild cardiomegaly; Small bilateral pleural effusions.
Chest X-ray: 09/07/2023-Small right and trace left pleural effusions with associated probable atelectasis, slightly progressed.
Chest X-Ray: 09/01/23- No acute cardiopulmonary process.
CT Scan: AP 06/25/23- IMPRESSION:
1. Advanced aortic atherosclerotic changes without aneurysmal dilation. Irregular mural thrombus along distal thoracic and abdominal aorta. Moderate stenosis of the infrarenal aorta.
2. High-grade stenosis of the proximal right common iliac artery. Moderate stenosis left common iliac artery. Left profunda femoral stenosis. Three-vessel runoff on the right and 2 vessel runoff on left.
3. Bilateral renal cortical scarring. Atrophic changes of the left kidney as compared with the right.
[facility] 04/09/23- CONCLUSIONS
1: Inferobasal akinesis with EF 54%
2: Single-vessel CAD (chronic total occlusion of the proximal RCA)
3. Recommend continued medical therapy with aspirin and high intensity statin
Echo 09/08/23:
Normal LV size with normal systolic function.
LVEF is 55% by Aguilar's method of discs..
RCA territory mild hypokinesis.
Mild concentric LVH.
Stage I diastolic dysfunction suggestive of abnormal relaxation.
Normal right ventricular size and function.
Mild mitral regurgitation.
Echo: 03/23/23- Normal biventricular size and systolic function without regional wall motion abnormality. Possible basal to mid inferior hypokinesis. Mild concentric left ventricular hypertrophy.
No significant valvular disease. Compared to previous echo 05/10/12, the possible basal inferior hypokinesis is new.
PFT's: 05/28/23- FVC was 2.06L or 58% predicted. FEV1 was 1.10L or 40% predicted. Ratio 53. Post FEV1 was 1.22L or 44% predicted, 11% change.
Lung volumes: TLC was 4.05L or 74% predicted. RV/TLC was 49%. Diffusion was 10.17 or 42% predicted. When adjusted for hemoglobin was unchanged.
Spirometry demonstrates severe obstruction. There was significant bronchodilator response in the FVC. Lung volumes demonstrate mild restriction. There is borderline air trapping. There is a moderate diffusion impairment.
Reports and relevant images were personally reviewed.
Subjective Data
-
Date of Service:
Date of Service: October 01, 2023
Chief Complaint: Pulmonary Follow Up
Subjective:
Patient seen this afternoon. Yesterday she was having low urine output which improved with albumin and Lasix. Today she has been feeling more short of breath starting since last night. Patient had a CXR last night showing pleural effusions which
are stable. When I saw her she was on 4 L/min nasal cannula. at bedside � I answered all of his and the patient's questions. Patient has chest pressure as well. She denies headache, abdominal pain, nausea, fevers or chills.
Review of Systems
General: Other (Negative unless mentioned above)
Objective Data
Data Reviewed
Vital Signs / I&O / Oxygen:
Vital Signs
Temp Pulse Resp BP Pulse Ox
97.7 F 78 24 124/78 96
10/01/23 15:44 10/01/23 15:44 10/01/23 15:44 10/01/23 15:44 10/01/23 15:44
Intake and Output
09/30/23 10/01/23 10/02/23
06:59 06:59 06:59
Intake Total 720 / 720 1640 / 1640
Output Total 300 / 300 270 / 270
Balance 420 / 420 1370 / 1370
SaO2 [A/C] 93
SaO2 96
Nasal Cannula flow liters per 4
minute
Physical Exam
General: Respiratory Distress (negative) and Comfortable
HEENT: Normocephalic and Anicteric
Cardiovascular: S1-S2 and Peripheral Edema (negative)
Respiratory: Wheeze (negative), Crackles (Bilateral (bases to midlung ramos bilaterally)) and Rhonchi (negative)
GI: Soft, Non Distended, Non Tender and Normal Bowel Sounds
Neurology: AO x 3 and Tremors (negative)
Skin: Warm, Dry and Jaundice (negative)
Labs/Micro/Reports
Lab Data
09/30/23 06:41
10/01/23 06:43
[2023-10-01] MEDS: TOPROL XL 25 MG PO (18:06)
[2023-10-01] MEDS: NEURONTIN 300 MG PO (21:37)
[2023-10-01] MEDS: CYMBALTA DELAYED RELEASE 30 MG PO (21:37)
[2023-10-01] MEDS: MELATONIN 5 MG PO (21:37)
--- NOTE | 2023-10-01 22:00 | PTCARENOTE ---
Patient's oxygen level at 6L from prior 4L. Patient states, 'my has been turning it up when I tell him I can't breathe'. Explained to patient that she or her cannot adjust her oxygen as nursing needs to be aware. Patient agreeable.
Oxygen turned back down to 4L, pulse ox 97%.
[2023-10-01 23:31] LABS: Glucose - Point of Care 241 mg/dl (70-99)
[2023-10-01 23:41] LABS: B.E. -3.9 mmol/L; HCO3 20.6 mmol/L (21-28); O2 Saturation % 96.8 % (94-98); PCO2 34 mmHg (32-35); PO2 88 mmHg (83-108); pH 7.39 (7.35-7.45)
[2023-10-01 23:42] LABS: O2 Therapy 4L
[2023-10-02] VITALS (18 sets, daily range): BP systolic 123–156; BP diastolic 87–98; PULSE 2–86; BMI 22.8
--- NOTE | 2023-10-02 00:28 | W.PN.UPDATE ---
Update Note
Progress Note Update
Called to patient room by nursing for breathing concerns. She states she can't breathe and is having difficulty speaking. ABG done and unremarkable on 4 L nc. Apparently oxygen was titrated up to 7 L nc earlier in the day by concerned about
her sob. CMP added for am due to possibility of jaundice (slight) Also noted with scattered intermittent what appears to be mottling on back and down lower legs. Goal to keep systolic >140 for brain perfusion. Xanax given for anxiety. Considered
morphine but SUAD. As for CP hesitate to give NTG may drop systolic pressure <140. She notes poor urine output today. EKG with non-specific T Wave abnormalities.
--- NOTE | 2023-10-02 02:00 | PTCARENOTE ---
Patient increasingly SOB, dyspneic on exertion and at rest. Patient is anxious, diaphoretic and having trouble talking due to difficulty breathing. PRN xanax given. Breathing treatment given by RT. Oxygen 97-99% on 4L. LICENSED RETAIL SUPERVISOR made aware and up to
floor to see patient. Also complaining of chest tightness. EKG done showing NSR with non-specific T wave abnormalities. Mottling and purple discoloration noted to buttocks, back of thighs, and bilateral feet. Patient states she 'had this prior to
surgery and it had gone away'. Orders for ABGs and CMP for AM. Order to transfer patient to IMU. Report called to IMU RN and patient transferred to [id number] with all belongings.
--- NOTE | 2023-10-02 02:42 | PTCARENOTE ---
pt received as transfer from - pt is AAOx3- able to make needs known. VSS- pulse ox 94% on 4L NC- pt with SOB at rest and exertion, crackles at bilateral bases, trouble speaking. pt educated on taking deep breaths. pt with c/o pain to right
shoulder- unchanged from previous. right 4th and 5th toes noted to be black and blue- pt reports they have been like that. some mottling noted to bilateral feet. pulses weak on palpation. b/l groin pinpoint scabs noted from previous stay- right
wrist pinpoint scab noted from cath procedure. all FLOSSER. pt oriented to room, call ríos within reach, care ongoing.
[2023-10-02] MEDS: XANAX 0.5 MG PO (05:16)
[2023-10-02] MEDS: SYNTHROID 100 MCG PO (05:16)
[2023-10-02 05:43] LABS: ALT (SGPT) 204 U/L (0-35); AST (SGOT) 270 U/L (14-36); Alkaline Phosphatase 74 U/L (38-126); Blood Urea Nitrogen 105 mg/dl (7-17); Calcium 8.3 mg/dl (8.4-10.2); Carbon Dioxide 22 mmol/L (22-30); Chloride 89 mmol/L (98-107); Estimated Creatinine Clearance 13 ml/min; Glucose 195 mg/dl (70-99); Potassium 4.4 mmol/L (3.5-5.1); Sodium 130 mmol/L (135-145); Total Bilirubin 1.2 mg/dl (0.2-1.3); Total Protein 6.3 g/dl (6.3-8.2)
--- NOTE | 2023-10-02 06:18 | PTCARENOTE ---
this AM pt used the bathroom- pt with increased work of breathing- oxygen dropped slightly- oxygen was increased to 5L NC. pt diaphoretic- given cool wash cloth to help. instructed on slow deep breathing. pt reported feeling better after a few
minutes. PRN xanax given per MAR as patient reports feeling anxious.
[2023-10-02] MEDS: PULMICORT 0.5 MG INH ×2 (07:46→18:30)
[2023-10-02] MEDS: XOPENEX 0.63 MG INHALANT SOLUTION 0.630000000000000004 MG INH ×3 (07:46→18:30)
[2023-10-02] MEDS: ATIVAN 0.5 MG IV (08:27)
[2023-10-02] MEDS: NSS (PRESERVATIVE FREE) 0.25 ML IV (08:42)
[2023-10-02] MEDS: LASIX 80 MG IV ×2 (08:43→14:05)
[2023-10-02] MEDS: SOLU-MEDROL PF 40 MG IV (08:44)
--- NOTE | 2023-10-02 08:52 | PTCARENOTE ---
Patient with feeling of shortness of breath this morning. Upon exam, pt sitting on the side of the bed in tripod position, tachypneic and using one word sentences. RT already at bedside and gave breathing treatment. Pt not neel for Xanax. Pt
expressing that she wants 'something to go to sleep' and 'I just want to .' Pt asking about lab results. TT to about situation, order for Ativan IV, see MAR. Appears to have good effect as patient now laying back in bed and less
tachypneic. Patient's now at bedside and updated. Assessment, care and VS as charted.
--- NOTE | 2023-10-02 09:20 | W.PN.PUL3 ---
Today's Communication / Plan
-
Diuresis as per cardiology and nephro --> lasix gtt being started
Continue to closely monitor her Sx - if Sx worsens or fail to improve despite adequate diuresis, would repeat RHC
If she does not put out adequate UOP, then she may need HD
Systemic steroids started on 09/27 and will wean as tolerated --> weaned down to 40mg IV q12hr on 09/29 from 60mg IV q12hr --> wean down to 20mg IV q12hr tomorrow, and hopefully can TRX to prednisone over next 1-2 days depending on her clinical course
Up OOB as tolerated
PT/OT
Trend sCr
Start BiPAP with sleep and prn during the day
Start buspirone and limit narcotics given her worsening lethargy/excessive sleepiness
Guarded prognosis - DNR/DNI
Assessment
-
Impression:
Acute hypoxemic respiratory failure due to pulmonary edema requiring intubation and mechanical ventilation-elevated filling pressures on right heart catheterization 09/21/2023 - extubated 09/22/2023
Acute on chronic heart failure with preserved ejection fraction/non-ST elevation myocardial infarction? Type II
Chest x-ray 09/21/2023: Reviewed showed mild cardiomegaly. Mild pulmonary vascular congestion. Small right pleural effusion.
Hypertensive urgency
Chronic anemia
Chronic leukocytosis
SUAD - DDx includes hypoperfusion from cardiorenal syndrome vs ATN from over-diuresis
Conditions present prior admission:
Conditions present [employer]
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
COPD
Moderate obstruction with positive/significant bronchodilator response, follows Dr White
Chronic cough noted
Upper airway cough syndrome
Moderate cigarette smoker (10-19 cigs/day) with longstanding tobacco abuse with [id number] history
TIA, recurrent
Ovarian cancer diagnosed age (no chemo, RT)
Hypertension
Hypercholesterolemia
Hypothyroidism
Moyamoya disease
CAD with occluded RCA
CKD 3/4
Vulva cancer (no RT, chemotherapy)
PAD
Appendectomy 02/1992
Hysterectomy, BSO, omentectomy 02/1992
Partial vulvectomy 2009
Brain bypass x3
Appendectomy
Plan:
She had been clinically improving but as of 09/30 she is more SOB, anxious and lethargic
Oxygen supplementation improved down to RA after cardiology started steroids on 09/27 --> she then developed SOB with worsening hypoxia on 09/30 requiring 3-4L/min NC
Continues to complain of chest tightness --> Chest x-ray from 09/28 shows persistent small bilateral pleural effusions with increased pulm vascular congestion, similar to last CXR on 09/25/2023 although it appears her left hemithorax has slightly
better aeration.; proBNP also very high at >27,000
PA catheter has been discontinued 09/25/2023
Initially had responded to IV diuresis; considering proBNP still remains at >27,000 with CXR findings, Lasix was increased by nephrology; however sCr 3.5 worsening on 09/29 and it has continued to rise. CT chest/abd/pelvis checked on 09/30 showing
bilateral pleural effusions, ascites, and GB edema; lasix gtt being started as per nephrology; evaluate patient's symptoms + labs daily - she may end up needing HD if that is in her goals of care.
Check RUQ US given the pericholecystic edema seen on CT A/P from 10/01/2023
-
Extubated 09/22/2023.
Continue to wean down oxygen as able.
Chest x-ray 09/25/2023: Reviewed,PA catheter in adequate position. Slightly worsening left basilar and retrocardiac opacity likely atelectasis/pleural effusion. Pulmonary vascular congestion improved.
Chest x-ray 09/29/2023: Reviewed; Pulmonary vascularity borderline prominent; Mild cardiomegaly; Small bilateral pleural effusions.
During this hospital stay no bronchospasm noted.
-
Acute on chronic heart failure with reduced ejection fraction
Status post right heart catheterization 09/21/2023:
1. Right dominant circulation with chronic total occlusion of the proximal RCA, collateralized by the left system.
3. Hypertensive emergency.
4. Acute congestive heart failure.
5. Severely elevated filling pressures (LVEDP = 25 mmHg, PCWP = 25 mmHg at 68.0 kg).
. Severe vasculopathy including moyamoya status post carotid artery bypass and recent aortoiliac angioplasty and stent placement.
-
Cardiology correspondence reviewed:
Echocardiogram: 09/22/2023 Mildly reduced left ventricular ejection fraction. Inferior wall and apical hypokinesis. LVEF 40%. No significant valvular disease. Normal right atrium. Normal right ventricle.
Status post Bumex drip
Continue IV diuretics per cardiology and nephrology.
trend her weight
Follow renal function and electrolytes.
-
Back on oral anticoagulants with Eliquis since 09/25/2023
Monitor for bleeding.
Continue to monitor hemoglobin. Patient is anemic but has been stable. Anemia contributing to shortness of breath as well.
Since she now has an SUAD, I gave her a dose of albumin + NS 500cc bolus on 09/29 and liberalized her fluid restriction to 64 ounces
Trend her sCr --> Cr continues to worsen. No additional IVF given, pt continue to be diuresed. Lasix gtt being started per npehrology. Trend I/O and daily weights, UOP. She may need HD; Cardiology recs appreciated
Start BiPAP during sleep and prn during the day -this should allow the patient to sleep given she is in decompensated heart failure.
-
Low-grade fevers-possibly aspiration pneumonitis. Resolved.
Never started on antibiotics.
Chronic leukocytosis.
-
Hypoxemic respiratory failure: Improved with diuresis down to RA as of 09/28
Not bronchospastic on exam
Encourage incentive spirometry
Increase physical activity. Physical therapy has been ordered.
Steroids started on 09/27 by cardiology --> started weaning down steroids on 09/29 to 40mg IV q12hr (solumedrol) from 60mg IV a12hr --> tomorrow could start weaning down to 20mg IV q12hr, and then prednisone taper 1-2 days after that
-
Glycemic control: Insulin as needed.
Target blood sugar 140-180
-
COPD without bronchospasm.
Severe COPD via PFT from September 14, 2023 with post BD FEV1 1.36 L / 49%. Very severe gas exchange capacity defect with DLCO: 34% (DLco/VA: 45%)
Continue Pulmicort twice a day
Continue Xopenex 3 times a day
DuoNebs as needed. Avoid beta agonist as able.
I am amenable to starting systemic steroids to see if this improves her SOB-cardiology started steroids on 09/27 with solumedrol 60mg IV q12hr , and wean as tolerated --> reduced to 40mg IV q12hr on 09/29 --> will wean down to 20mg IV q12hr starting
10/02. Restart outpatient inhalers upon discharge
Eventual outpatient follow-up with Dr. Choudhury
CT chest/abd/pelvis done on 09/30 shows small bilateral pleural effusions with moderate cardiomegaly - no evidence for interstitial lung disease, and no significant emphysema on 09/02/[address] chest
-
Tolerating diet.
Physical therapy as tolerated
Occupational Therapy as tolerated
I will lower the dose of prn Xanax as she is already lethargic; start scheduled buspirone. Cautiously give any narcotic given her waxing and waning mental status with lethargy and excessive sleepiness today.
[facility] discussion: I discussed goals of care today with the patient and mentioned hospice. She is not currently ready for hospice. at bedside during this conversation. They want to continue full medical management for now and they still are
not sure about dialysis if it comes to that. For now we will continue with aggressive diuresis and trending her labs. I answered all of the patient and the 's questions. Emotional support was provided.
-
Pulmonary will continue to follow briefly for history of COPD and hypoxemia - she already has appointment set up with me on 11/03/2023. We will try to get this moved up if she survives this hospitalization.
Total time spent today was 50 minutes for this encounter. Time includes reviewing laboratory test/imaging results, reviewing pertinent medical records, obtaining and reviewing medical history, performing an appropriate exam, ordering medications,
tests and procedures. Time also includes documentation of this encounter, coordinating patient care and communicating with other healthcare professionals. Total time does not include separately billed tests performed on this date of service.

Diagnostic Data
Chest X-ray: 09/29/2023-Pulmonary vascularity borderline prominent; mild cardiomegaly; Small bilateral pleural effusions.
Chest X-ray: 09/07/2023-Small right and trace left pleural effusions with associated probable atelectasis, slightly progressed.
Chest X-Ray: 09/01/23- No acute cardiopulmonary process.
CT Chest/Abd/Pelvis 10/01/2023:
1).There are small bilateral pleural effusions, increased in volume when compared with the prior study and associated with compressive atelectasis at both lung bases
2). There is a 2 cm pleural-based area of parenchymal airspace disease in the anteromedial aspect of the lingula, new when compared with the prior study which may be atelectasis or minimal pneumonia
3). There is moderate cardiomegaly
4).There is moderate pericholecystic edema at the gallbladder such as may be seen with cholecystitis.
5). There is aortobiiliac stent graft
6). There is mild left-sided renal cortical atrophy
7).There is moderate ascites in the pelvis
CT Scan: AP 06/25/23- IMPRESSION:
1. Advanced aortic atherosclerotic changes without aneurysmal dilation. Irregular mural thrombus along distal thoracic and abdominal aorta. Moderate stenosis of the infrarenal aorta.
2. High-grade stenosis of the proximal right common iliac artery. Moderate stenosis left common iliac artery. Left profunda femoral stenosis. Three-vessel runoff on the right and 2 vessel runoff on left.
3. Bilateral renal cortical scarring. Atrophic changes of the left kidney as compared with the right.
[facility] 04/09/23- CONCLUSIONS
1: Inferobasal akinesis with EF 54%
2: Single-vessel CAD (chronic total occlusion of the proximal RCA)
3. Recommend continued medical therapy with aspirin and high intensity statin
Echo 09/08/23:
Normal LV size with normal systolic function.
LVEF is 55% by Aguilar's method of discs..
RCA territory mild hypokinesis.
Mild concentric LVH.
Stage I diastolic dysfunction suggestive of abnormal relaxation.
Normal right ventricular size and function.
Mild mitral regurgitation.
Echo: 03/23/23- Normal biventricular size and systolic function without regional wall motion abnormality. Possible basal to mid inferior hypokinesis. Mild concentric left ventricular hypertrophy.
No significant valvular disease. Compared to previous echo 05/10/12, the possible basal inferior hypokinesis is new.
PFT's: 05/28/23- FVC was 2.06L or 58% predicted. FEV1 was 1.10L or 40% predicted. Ratio 53. Post FEV1 was 1.22L or 44% predicted, 11% change.
Lung volumes: TLC was 4.05L or 74% predicted. RV/TLC was 49%. Diffusion was 10.17 or 42% predicted. When adjusted for hemoglobin was unchanged.
Spirometry demonstrates severe obstruction. There was significant bronchodilator response in the FVC. Lung volumes demonstrate mild restriction. There is borderline air trapping. There is a moderate diffusion impairment.
Reports and relevant images were personally reviewed.
Subjective Data
-
Date of Service:
Date of Service: October 02, 2023
Chief Complaint: Pulmonary Follow Up
Subjective:
Patient seen this morning. Afebrile overnight. When I saw her she was lethargic but still able to hold a conversation with me and was not confused. According to bedside RN, she was more awake and alert earlier. She is currently on 3 L/min nasal
cannula breathing comfortably. SpO2 93%, BP 137/90. Feels like she is unable to take in a deep breath. Creatinine continues to worsen. She denies chest pain, headache, fevers or chills.
Review of Systems
General: Other (Negative unless mentioned above)
Objective Data
Data Reviewed
Vital Signs / I&O / Oxygen:
Vital Signs
Temp Pulse Resp BP Pulse Ox
97.4 F 82 24 137/90 99
10/02/23 07:51 10/02/23 08:43 10/02/23 07:49 10/02/23 08:43 10/02/23 07:49
Intake and Output
10/01/23 10/02/23 10/03/23
06:59 06:59 06:59
Intake Total 1640 / 1640 240 / 240
Output Total 270 / 270 400 / 400
Balance 1370 / 1370 -160 / -160
SaO2 [A/C] 93
SaO2 99
Nasal Cannula flow liters per 5
minute
Physical Exam
General: Respiratory Distress (negative) and Comfortable
HEENT: Normocephalic and Anicteric
Cardiovascular: S1-S2 and Peripheral Edema (negative)
Respiratory: Wheeze (negative), Crackles (Bilateral (bases to midlung ramos bilaterally)), Rhonchi (negative) and Other (Reduced breath sounds on right hemithorax)
GI: Soft, Distended (Mild), Non Tender and Normal Bowel Sounds
Neurology: AO x 3 and Tremors (negative)
Skin: Warm, Dry and Jaundice (negative)
Labs/Micro/Reports
Lab Data
09/30/23 06:41
10/02/23 04:52
Laboratory Results
10/01/23
23:30
pH 7.39
pCO2 34
pO2 88
HCO3 20.6 L
O2 Delivery Level 4l
--- NOTE | 2023-10-02 10:35 | W.PN.CD ---
Today's Communication / Plan
-
Patient's issues remain challenging. Patient with some reported increased shortness of breath last night. Also has had some issues with anxiety. Patient received additional alprazolam shortly before I came in the room so she was sleeping was
arousable but then quickly went back to sleep. Weights have slowly trended up despite current diuretic dosing. Renal function also worsening with BUN 105 and creatinine 4.3.
Issues have been discussed with primary team/Dr. Mcdaniel.
Will await additional assessment by nephrology.
Impression / Plan
-
Background: 63 y/o female vasculopath with a history of CAD (RCA [employer]RILL [employer]GEANT), CKD, COPD, severe PAD with recent aortoiliac revascularization for potential atheroembolism and [place] DEX s/p bilateral carotid bypass admitted with decompensating HFpEF and
chest pressure, prompting cardiac catheterization, at which time she went into flash pulmonary edema from hypertensive crisis, requiring intubation and aggressive BP management.
Severe SUAD on top of CKD
-Based on prior notes it was suspected too rapid diuresis and cardiorenal syndrome
- At 63.5 kg she felt well but but then apparently had some more heart failure-like symptoms when we increased to 64.5 kg. Patient has been receiving additional diuretic with furosemide although weights now appear up to 65.9.
-Will defer to nephrology regarding worsening renal function and any future needs for dialysis.
HFmidrangeEF, acute on chronic
- Dry weight less than 64.5 and likely close to 63.5 kg. At 68 kg LVEDP = 25 mmHg, PCWP = 25 mmHg (also unclear the exact accuracy of weight at the time of catheterization there were 2 weights at 68 kg and 1 weight 64.7 kg on that day. On 611 on
612 weight was 65.7 and 65.8)
- Now on HF BB
- GDMT currently limited due to SUAD.
-Challenging issue patient may still need additional volume removed and may ultimately need HD.
Ascites. Moderate based on CT 09/30/2022
.
Single vessel CAD with chronic RCA occlusion. Cath this admit
PAD/aortic atherosclerosis
-Recent infrarenal aorta/iliac revascularization for potentially atheroembolism (AFX 25-90/16-30, 28-95 proximal extension).
-CTA post procedure comments on residual mural thrombus in descending thoracic aorta.
-Dr. Brooks saw in ER and reports vascular issues stable.
-Apixaban restarted on 09/25/2023
HTN
- Goal BP includes consideration of her complex cerebral vascular disease
COPD=> now on IV steroids
Moyamoya disease, prior carotid bypass.
-Previously recommended SBP of 140-160 to maintain cerebral perfusion. However, patient reports that neurologist said okay to bring down BP's a bit (slowly) and do neuro checks.
Subjective:
Feels well
Physical Exam
Vital Signs/Labs
Vital Signs
Temp Pulse Resp BP Pulse Ox
97.4 F 77 18 137/87 94
10/02/23 07:51 10/02/23 10:00 10/02/23 10:00 10/02/23 10:00 10/02/23 10:17
10/01/23 10/02/23 10/03/23
06:59 06:59 06:59
Actual Weight 64.467 kg 65.9 kg
09/30/23 06:41
10/02/23 04:52
PT 16.6 Sec (11.4-14.6) H 09/26/23 04:26
INR 1.36 09/26/23 04:26
APTT 49.4 Sec (23.4-35.0) H 09/26/23 04:26
Magnesium 1.8 mg/dl (1.6-2.3) 09/28/23 05:32
Triglycerides 143 mg/dl (10-149) 09/22/23 03:57
LDL Cholesterol, Calc 46 mg/dl 09/22/23 03:57
VLDL Cholesterol, Calc 28 mg/dl (0-30) 09/22/23 03:57
HDL Cholesterol 44 mg/dl 09/22/23 03:57
09/21/23 09/29/23
14:07 04:09
Rvu-P-Pbpaxateadd Pept > 97999 > 40414
Physical Exam
Constitutional: No acute distress
Cardiovascular: Rhythm & rate is regular
Respiratory: Respiratory effort normal
GI: Soft and Non tender
Neuro/Psych: Alert and Oriented
Data Reviewed
-
Date of Service: October 02, 2023
Medical Decision Making: Reviewed Test Results
X-Ray/CT/US/MRI/NUC/PET: Discussed with Physician
Medical Tests (PFT, Pathology etc): Report Reviewed by me
Labs: Labs Reviewed by me
[2023-10-02] MEDS: LIPITOR PO (10:39)
[2023-10-02] MEDS: DUONEB 3 ML INH (11:18)
[2023-10-02] MEDS: LOW STRENGTH ASPIRIN 81 MG PO (11:29)
[2023-10-02] MEDS: ELIQUIS 5 MG PO ×2 (11:29→19:49)
[2023-10-02] MEDS: MIRALAX PO (11:30)
[2023-10-02] MEDS: SENOKOT-S PO ×2 (11:30→19:50)
[2023-10-02] MEDS: VITAMIN D3 (cholecalciferol) 50 MCG PO (11:32)
[2023-10-02] MEDS: MUCINEX PO (11:34)
--- NOTE | 2023-10-02 11:44 | W.PN.HOSP.TC ---
Today's Communication/Plan
-
Nephro recs
?dec IV steroids
Abd US
syed for UOP
OOB/IS
Assessment / Plan
Assessment / Plan
63-year-old female with past medical history of PAD with recent aortoiliac stent, CAD, CKD IV, moyamoya syndrome, hypothyroidism, hyperlipidemia, hypertension, ovarian cancer, TIA, COPD, brain bypass x 3 came to the hospital with chest pain and
shortness of breath. EKG with new ST depressions. Initial troponin is 0.215 with a proBNP greater than 27,000, creatinine 2.0 (baseline). She was taken urgently to cardiac cath complicated by acute resp failure requiring intubation; shown to have
severely elevated filling pressures. No new CAD. She required intubation, admitted to ICU with [place] catheter placed, IV Bumex gtt.
.
#Acute kidney injury on CKD stage IIIb
#Mild hyponatremia
-Baseline ~2. Did received contrast on admission. However, greater than 1 week at this point.
-creatinine bumped to 4.3 today.
-BUN severely elevated ?due to steroids
-Per cards, monitor clinically and no plan for repeat RHC.
-remains on lasix
-syed to monitor urinary output. wt uptrended.
-May require dialysis.
-appreciate renal consult
#Acute hypoxemic respiratory failure secondary pulmonary edema requiring intubation mechanical ventilation, elevated filling pressures on the catheterization
#Hypertensive emergency with flash pulmonary edema
#Acute on chronic congestive heart failure with preserved ejection fraction
#Non-DE troponin elevation
-cardiac cath without significant CAD;+ elevated pressures
-required intubation in laborer [place]arf 09/20; s/p extubation on 09/21
-Bumex gtt stopped 09/23
-Lasix uptitrated to 60 mg twice daily to daily.
-[place] catheter now out
-Per patient discussion with her primary neurologist who stated okay for blood pressure to be lowered further if needed and to be monitored neurologic
-continue aspirin/statin restarted
-Plan for of goal-directed medical therapy pending stabilization of creatinine probably as outpatient.
-CXR on 09/30 am-reviewed bilateral pleural effusion. Stable. Cardiomegaly is stable.
#Acute COPD exacerbation
-Continue bronchodilators. Severe COPD recent PFTs.
-Not severely wheezing or bronchospastic. downtitration of steroids to 40mg [id number] consider further downtitration
# Dyspnea likely multifactorial CHF and COPD
Plan as above
improving
exacerbated at times due to severe anxiety/panic attacks
#Hyponatremia ?due to hypovolemia 2/2 diuresis
-trend for now. Lasix been held
-If no improvement check urine studies in 24h.
#moderate pericholecystic edema at the gallbladder
-AST/ALT elevated but could be due to congestion
-No severe RUQ pain-d/w with spouse who also agreed
-Check Abd US-NPO for US.
Hypokalemia
-repleted
# Chronic leukocytosis worsening in setting of sterodis
Fever 09/21, likely 2/2 aspiration pneumonitis
-afebrile overnight and does not appear infected since
# Normocytic anemia
-No active bleeding
-Continue to trend, stable
-iron studies - anemia inflammation
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
-bilaterally s/p diagnostic arteriogram, AFX stent graft placement, balloon angioplasty 09/01/23
-[employer] Eliquis resumed
#Livedo reticularis
-vascular following; no acute issues from vascular standpoint
#essential HTN
-started on toprol.
#anxiety/panic attacks
-duloxetine continued
-increase xanax to 0.5mg TID prn for now.
#hypothyroidism
-levothyroxine continued
# ex Smoker
#Mixed hyperlipidemia
-statin continued
#Moyamoya syndrome, 3 surgical interventions
Per patient discussion with her primary neurologist who stated okay for blood pressure to be lowered further if needed and to be monitored neurologically.
#DVT prophylaxis - Eliquis
#CODE status
-full code
d/w with spouse at bedside in details for prolonged period of time. All questions answered to his satisfaction.
d/w with pulmonary, cardiology
Anticipated Discharge: > 48 hours
Subjective/Interval History
-
Date of Service: October 02, 2023
Overnight events are noted
Earlier this morning patient with anxiety and mild shortness of breath
Patient remains on oxygenation
Patient was transferred to IMU
Objective Data
-
Labs:
Laboratory Results
10/02/23
04:52
Sodium 130 L
Potassium 4.4
Chloride 89 L
Carbon Dioxide 22
BUN 105 H*
Creatinine 4.3 H*
Glucose 195 H
Calcium 8.3 L
Total Bilirubin 1.2
AST 270 H
ALT 204 H
Alkaline Phosphatase 74
Vital Signs:
Vital Signs
Temp Pulse Resp BP Pulse Ox
97.7 F 82 22 137/87 98
10/02/23 11:09 10/02/23 11:22 10/02/23 11:22 10/02/23 10:00 10/02/23 11:22
I&O
10/01/23 10/02/23 10/03/23
06:59 06:59 06:59
Intake Total 1640 / 1640 240 / 240
Output Total 270 / 270 400 / 400
Balance 1370 / 1370 -160 / -160
Physical Exam
-
General: No Apparent Distress and Comfortable; Negative Respiratory Distress
HEENT: Normocephalic, Atraumatic, Moist Mucous Membranes and Oxygen
Respiratory: Non Labored Respirations; Negative Accessory Resp Muscle Use
Cardiac: Regular Rhythm and S1/S2
GI: Soft, Nontender, Nondistended and Normal Bowel Sounds
Musculoskeletal: No Edema
Skin: Warm and Dry; Negative Rash
Psych: Calm and Anxious
Data Reviewed
-
Total Time Spent with Patient (in minutes): 60
--- NOTE | 2023-10-02 13:47 | W.PN.NEPH.PH ---
Today's Communication / Plan
-
- diuresis with lasix bolus followed by gtt
Assessment/Plan
-
Impression:
Chest pain shortness of breath: Congestive heart failure decompensation/non-ST elevation OK
Chronic kidney disease stage IV with baseline creatinine of 2
Hypertension urgency
Aorta iliac revascularization following potential atheroembolism August 2023
COPD
Moyamoya disease/complex peripheral arterial disease
Intubation
echo EF 40-45%, WMA
Plan:
Kidney function climbing to 4.3. had some diuresis, fluids, etc. CT with signs of worsening volume overload.
poor response to lasix 60IV, increased to lasix 80IV and then plan to initiate lasix gtt
Chest x-ray personally reviewed notes interstitial edema, CT scan reviewed and shows worsening pleural effusions
maintain FR for hyponatremia
pulmonary capillary wedge pressure of 25 following cardiac cath (no intervention performed) at wt of 65.4 on 09/20. today weight at 65.9kg
follow labs
Patient clinically high risk with decompensated congestive heart failure worsening renal failure requiring IV diuretics
Discussion about possible need for dialysis if unable to maintain volume status without potentiating profound azotemia and renal failure, patient considering
Discussed with both patient and
Patient could still be a candidate for GDMT after stabilization of kidney function
-
-
Date of Service: October 02, 2023
CC / HPI / ROS
-
Chief Complaint:
CKD
History of Present Illness:
cr elevated to 4.3
sodium down to 130
s/p extubation 09/21
hg b at 8.6
Hemodynamically stable
Review of Systems:
sob worse last evening
weights up
no cp, or n/v
Urine output minimal at 400cc
Labs
-
Labs:
WBC 22.2 10^3/uL (4.8-10.8) H 09/30/23 06:41
RBC 2.87 10^6/uL (4.20-5.40) L 09/30/23 06:41
Hgb 8.6 g/dL (12.0-16.0) L 09/30/23 06:41
Hct 26.3 % (37.0-47.0) L 09/30/23 06:41
Plt Count 488 10^3/uL (130-400) H 09/30/23 06:41
Sodium 130 mmol/L (135-145) L 10/02/23 04:52
Potassium 4.4 mmol/L (3.5-5.1) 10/02/23 04:52
Chloride 89 mmol/L (98-107) L 10/02/23 04:52
Carbon Dioxide 22 mmol/L (22-30) 10/02/23 04:52
BUN 105 mg/dl (7-17) H* 10/02/23 04:52
Creatinine 4.3 mg/dL (0.6-1.0) H* 10/02/23 04:52
eGFR 11.00 10/02/23 04:52
Glucose 195 mg/dl (70-99) H 10/02/23 04:52
Calcium 8.3 mg/dl (8.4-10.2) L 10/02/23 04:52
Phosphorus 5.0 mg/dl (2.5-4.5) H 09/21/23 19:10
Que-X-Vfafebkwbbz Pept > 85047 pg/ml 09/29/23 04:09
Albumin 4.0 g/dl (3.5-5.0) 10/02/23 04:52
Physical Exam
-
Vital Signs:
Vital Signs
Temp Pulse Resp BP Pulse Ox
97.7 F 82 22 137/87 98
10/02/23 11:09 10/02/23 11:22 10/02/23 11:22 10/02/23 10:00 10/02/23 11:22
Cardiovascular:: Regular rate and rhythm
Respiratory:: Bilateral: Coarse
Lung Excursion:: Normal
Abdomen:: Nontender and Soft
Bowel Sounds:: Normal
Extremity Edema:: None: Bilateral:
Portillo Catheter: No
[2023-10-02] MEDS: BUSPAR 5 MG PO ×2 (14:05→19:49)
--- NOTE | 2023-10-02 14:18 | CM ---
met with patient at bedside.transferred to imu with resp distress.patient is on 3 liters n co2,on ativan ,nebs ,iv lasix,,bun is elevated,may require dialysis-renal following.plan for now:dhvn following patient.
[2023-10-02] MEDS: LASIX 50 IV ×2 (14:24→22:30)
--- NOTE | 2023-10-02 14:35 | PTCARENOTE ---
Portillo catheter inserted per order. 325 of yellow urine returned. Pt started on Lasix gtt per order, see MAR. Will monitor I&O's.
[2023-10-02] MEDS: TOPROL XL 25 MG PO (17:11)
[2023-10-02] MEDS: XANAX 0.25 MG PO ×3 (17:18→21:37)
[2023-10-02] MEDS: NEURONTIN 300 MG PO (19:49)
[2023-10-02] MEDS: MUCINEX 1200 MG PO (19:50)
[2023-10-02] MEDS: SOLU-MEDROL PF 20 MG IV (19:50)
[2023-10-02] MEDS: ROBITUSSIN DM 5 ML PO (19:51)
[2023-10-02] MEDS: CYMBALTA DELAYED RELEASE 30 MG PO (21:37)
[2023-10-02] MEDS: MELATONIN 5 MG PO (21:37)
[2023-10-02] MEDS: LIDOCAINE 4% PATCH 1 PATCH TOPICAL (21:38)
[2023-10-03] VITALS (26 sets, daily range): BP systolic 129–153; BP diastolic 88–98; PULSE 2–88; BMI 22.3
[2023-10-03] MEDS: NEURONTIN 300 MG PO ×2 (01:44→18:10)
[2023-10-03] MEDS: DUONEB 3 ML INH (01:44)
[2023-10-03] MEDS: XANAX 0.25 MG PO ×3 (01:44→19:51)
--- NOTE | 2023-10-03 03:38 | PTCARENOTE ---
episode of severe shortness of breath that awoke pt from a sleep- Rt gave treatment- Xanax given- crackles heard at bases- pt very upset with her respiratory situation. support given
[2023-10-03 06:18] LABS: Blood Urea Nitrogen 117 mg/dl (7-17); Calcium 8.2 mg/dl (8.4-10.2); Carbon Dioxide 23 mmol/L (22-30); Chloride 89 mmol/L (98-107); Estimated Creatinine Clearance 12 ml/min; Glucose 229 mg/dl (70-99); Potassium 4.5 mmol/L (3.5-5.1); Sodium 133 mmol/L (135-145); eGFR 9.64
[2023-10-03] MEDS: SYNTHROID 100 MCG PO (06:20)
[2023-10-03] MEDS: PULMICORT 0.5 MG INH ×2 (07:22→19:44)
[2023-10-03] MEDS: XOPENEX 0.63 MG INHALANT SOLUTION 0.630000000000000004 MG INH ×3 (07:22→19:44)
[2023-10-03] MEDS: MUCINEX 1200 MG PO ×2 (08:15→19:51)
[2023-10-03] MEDS: LOW STRENGTH ASPIRIN 81 MG PO (08:16)
[2023-10-03] MEDS: VITAMIN D3 (cholecalciferol) 50 MCG PO (08:16)
[2023-10-03] MEDS: SOLU-MEDROL PF 20 MG IV ×2 (08:16→19:51)
[2023-10-03] MEDS: MIRALAX PO (08:16)
[2023-10-03] MEDS: ELIQUIS 5 MG PO ×2 (08:16→19:51)
[2023-10-03] MEDS: BUSPAR 5 MG PO ×2 (08:16→18:06)
[2023-10-03] MEDS: SENOKOT-S PO ×2 (08:16→19:52)
--- NOTE | 2023-10-03 09:00 | PTCARENOTE ---
Patient received from material handler 2nd shift. Patient resting comfortably in bed. AAO, VSS. No events noted overnight. No complaints of pain at this time. Patient wore BiPAP overnight. Currently on 3L N/C, B/L basilar crackles. at bedside. Call
ríos in reach.
[2023-10-03 10:21] LABS: ALT (SGPT) 309 U/L (0-35); AST (SGOT) 283 U/L (14-36); Alkaline Phosphatase 94 U/L (38-126); Direct Bilirubin 0.9 mg/dl (0.0-0.4); Total Bilirubin 1.3 mg/dl (0.2-1.3); Total Protein 6.4 g/dl (6.3-8.2)
[2023-10-03] MEDS: LASIX 50 IV (11:16)
--- NOTE | 2023-10-03 11:58 | W.PN.CD ---
Addendum entered and electronically signed by Boubacar Bellamy MD 10/03/23 13:06:
I saw and examined the patient.
The CHANGE MANAGEMENT FACILITATOR's note was reviewed and I agree with the note.
more awake today , sitting in chair. feels a little better today compared to yesterday. BUN and creatinine continue to rise
managment remains challenging. Defer to nephrology regarding decison / timingof HD
Original Note:
Today's Communication / Plan
-
Patient on Lasix drip per nephrology. Renal function is worsening. Still appears volume overloaded. May ultimately need dialysis. Management per nephrology.
Continue ASA, statin, and BB
Impression / Plan
-
Background: 63 y/o female vasculopath with a history of CAD (RCA MOVEMAN), CKD, COPD, severe PAD with recent aortoiliac revascularization for potential atheroembolism and [place] DEX s/p bilateral carotid bypass admitted with decompensating HFpEF and
chest pressure, prompting cardiac catheterization, at which time she went into flash pulmonary edema from hypertensive crisis, requiring intubation and aggressive BP management.
SUAD on top of CKD: severe
-Based on prior notes it was suspected too rapid diuresis and cardiorenal syndrome
-At 63.5 kg she felt well but but then apparently had some more heart failure-like symptoms when we increased to 64.5 kg. Patient has been receiving additional diuretic with furosemide although weights now appear up to 65.9.
-Will defer to nephrology regarding worsening renal function and any future needs for dialysis.
HFmidrangeEF, acute on chronic
- Dry weight less than 64.5 and likely close to 63.5 kg. She is 64.4 kg today. Crackles to b/l bases, requiring O2, mildly increased WOB. At 68 kg LVEDP = 25 mmHg, PCWP = 25 mmHg (also unclear the exact accuracy of weight at the time of
catheterization there were 2 weights at 68 kg and 1 weight 64.7 kg on that day. On 61 on 612 weight was 65.7 and 65.8)
- Now on HF BB
- GDMT currently limited due to SUAD.
-Challenging issue patient may still need additional volume removed and may ultimately need HD. She is currently on lasix drip, with worsening renal function- management per nephrology. This medicine requires intensive monitoring.
Ascites. Moderate based on CT 09/30/2022
Single vessel CAD with chronic RCA occlusion. Cath this admit stable.
PAD/aortic atherosclerosis
-Recent infrarenal aorta/iliac revascularization for potentially atheroembolism (AFX 25-90/16-30, 28-95 proximal extension).
-CTA post procedure comments on residual mural thrombus in descending thoracic aorta.
-Dr. Brooks saw in ER and reports vascular issues stable.
-Apixaban restarted on 09/25/2023
HTN
-Goal BP includes consideration of her complex cerebral vascular disease
-monitor closely (see below)
COPD: now on IV steroids
Moyamoya disease, prior carotid bypass.
-Previously recommended SBP of 140-160 to maintain cerebral perfusion. However, patient reports that neurologist said okay to bring down BP's a bit (slowly) and do neuro checks.
Subjective:
Patient looks tired. She is OOB to chair.
Mildly increased WOB
Physical Exam
Vital Signs/Labs
Vital Signs
Temp Pulse Resp BP Pulse Ox
97.5 F 82 15 140/92 94
10/03/23 11:34 10/03/23 07:25 10/03/23 07:25 10/03/23 06:00 10/03/23 09:52
10/02/23 10/03/23 10/04/23
06:59 06:59 06:59
Actual Weight 65.9 kg 64.4 kg
09/30/23 06:41
10/03/23 05:45
PT 16.6 Sec (11.4-14.6) H 09/26/23 04:26
INR 1.36 09/26/23 04:26
APTT 49.4 Sec (23.4-35.0) H 09/26/23 04:26
Magnesium 1.8 mg/dl (1.6-2.3) 09/28/23 05:32
Triglycerides 143 mg/dl (10-149) 09/22/23 03:57
LDL Cholesterol, Calc 46 mg/dl 09/22/23 03:57
VLDL Cholesterol, Calc 28 mg/dl (0-30) 09/22/23 03:57
HDL Cholesterol 44 mg/dl 09/22/23 03:57
09/21/23 09/29/23
14:07 04:09
Dnc-H-Ycbeiddhsbf Pept > 20441 > 77449
Physical Exam
Constitutional: No acute distress
EENT: Anicteric
Cardiovascular: Rhythm & rate is regular
Respiratory: Crackles Present (b/l bases) and Other (mildly increased WOB, on O2 by NC)
Neuro/Psych: AO x 3
Data Reviewed
-
Date of Service: October 03, 2023
EKG: Other (tele SR)
Echo: Other (Echo 09/22/23: Mildly reduced left ventricular systolic function. Inferior wall and apical hypokinesis. LV ejection fraction is 40% visually and 44% by volumetric assessment)
Labs: Labs Reviewed by me
--- NOTE | 2023-10-03 12:49 | W.PN.HOSP.TC ---
Today's Communication/Plan
-
On Lasix infusion
Monitor urinary output
Out of bed with PT
Monitor creatinine
Nephrology recs
Assessment / Plan
Assessment / Plan
63-year-old female with past medical history of PAD with recent aortoiliac stent, CAD, CKD IV, moyamoya syndrome, hypothyroidism, hyperlipidemia, hypertension, ovarian cancer, TIA, COPD, brain bypass x 3 came to the hospital with chest pain and
shortness of breath. EKG with new ST depressions. Initial troponin is 0.215 with a proBNP greater than 27,000, creatinine 2.0 (baseline). She was taken urgently to cardiac cath complicated by acute resp failure requiring intubation; shown to have
severely elevated filling pressures. No new CAD. She required intubation, admitted to ICU with [place] catheter placed, IV Bumex gtt.
.
#Acute kidney injury on CKD stage IIIb
#Mild hyponatremia
-Baseline ~2. Did received contrast on admission. However, greater than 1 week at this point.
-creatinine bumped to 4.8 today.
-BUN severely elevated ?due to steroids
-Per cards, monitor clinically and no plan for repeat RHC.
-IV Lasix discontinued and started on Lasix infusion. Patient with urinary output of 1100 cc.
-syed to monitor urinary output. wt uptrended.
-May require dialysis.
-appreciate renal consult
#Acute hypoxemic respiratory failure secondary pulmonary edema requiring intubation mechanical ventilation, elevated filling pressures on the catheterization
#Hypertensive emergency with flash pulmonary edema
#Acute on chronic congestive heart failure with preserved ejection fraction
#Non-NV troponin elevation
-cardiac cath without significant CAD;+ elevated pressures
-required intubation in laborer syrup machine 09/20; s/p extubation on 09/21
-Bumex gtt stopped 09/23
-Lasix uptitrated to 60 mg twice daily to daily.
-[place] catheter now out
-Per patient discussion with her primary neurologist who stated okay for blood pressure to be lowered further if needed and to be monitored neurologic
-continue aspirin/statin restarted
-Plan for of goal-directed medical therapy pending stabilization of creatinine probably as outpatient.
-CXR on 09/30 am-reviewed bilateral pleural effusion. Stable. Cardiomegaly is stable.
#Acute COPD exacerbation
-Continue bronchodilators. Severe COPD recent PFTs.
-Not severely wheezing or bronchospastic. downtitration of steroids to 20mg [id number] consider further downtitration
# Dyspnea likely multifactorial CHF and COPD
Plan as above
improving
exacerbated at times due to severe anxiety/panic attacks
BiPAP nightly and as needed
#Hyponatremia ?due to hypovolemia 2/2 diuresis
-trend for now. Lasix been held
-If no improvement check urine studies in 24h.
#moderate pericholecystic edema at the gallbladder
-AST/ALT elevated but could be due to congestion
-No severe RUQ pain-d/w with spouse who also agreed
-Abdominal ultrasound-Trace gallbladder sludge. Small gallbladder stone versus polyp. Mild gallbladder wall thickening. Negative sonographic Hurt's sign. No findings to suggest biliary tract dilatation.
-Continue to monitor for diet tolerance. Monitor for diet tolerance
Hypokalemia
-repleted
# Chronic leukocytosis worsening in setting of sterodis
Fever 09/21, likely 2/2 aspiration pneumonitis
-afebrile overnight and does not appear infected since
# Normocytic anemia
-No active bleeding
-Continue to trend, stable
-iron studies - anemia inflammation
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
-bilaterally s/p diagnostic arteriogram, AFX stent graft placement, balloon angioplasty 09/01/23
-BRICK CARRIER Eliquis resumed
#Livedo reticularis
-vascular following; no acute issues from vascular standpoint
#essential HTN
-started on toprol.
#anxiety/panic attacks
-duloxetine continued
-increase xanax to 0.5mg TID prn for now.
#hypothyroidism
-levothyroxine continued
# ex Smoker
#Mixed hyperlipidemia
-statin continued
#Moyamoya syndrome, 3 surgical interventions
Per patient discussion with her primary neurologist who stated okay for blood pressure to be lowered further if needed and to be monitored neurologically.
#DVT prophylaxis - Eliquis
#CODE status
-full code
d/w with spouse at bedside in details for prolonged period of time and explained prognosis moving forward
Anticipated Discharge: > 48 hours
Subjective/Interval History
-
Date of Service: October 03, 2023
States of intermittent shortness of breath
Tolerated BiPAP for 4 hours
Tolerating some diet
States some nausea but no severe abdominal pain
Objective Data
-
Labs:
Laboratory Results
10/03/23
05:45
Sodium 133 L
Potassium 4.5
Chloride 89 L
Carbon Dioxide 23
BUN 117 H*
Creatinine 4.8 H*
Glucose 229 H
Calcium 8.2 L
Total Bilirubin 1.3
AST 283 H
ALT 309 H
Alkaline Phosphatase 94
Vital Signs:
Vital Signs
Temp Pulse Resp BP Pulse Ox
97.5 F 82 15 140/92 94
10/03/23 11:34 10/03/23 07:25 10/03/23 07:25 10/03/23 06:00 10/03/23 09:52
I&O
10/02/23 10/03/23 10/04/23
06:59 06:59 06:59
Intake Total 240 / 240 480 / 480
Output Total 400 / 400 1125 / 1125
Balance -160 / -160 -645 / -645
Physical Exam
-
General: No Apparent Distress and Comfortable; Negative Respiratory Distress
HEENT: Normocephalic, Atraumatic, Moist Mucous Membranes and Oxygen
Respiratory: Non Labored Respirations; Negative Accessory Resp Muscle Use
Cardiac: Regular Rhythm and S1/S2
GI: Soft, Nontender, Nondistended and Normal Bowel Sounds
Musculoskeletal: No Edema
Skin: Warm and Dry; Negative Rash
Neuro: Awake, AO x 3 and No Motor Deficits
Psych: Calm
Data Reviewed
-
Total Time Spent with Patient (in minutes): 55
--- NOTE | 2023-10-03 14:49 | W.PN.PUL3 ---
Today's Communication / Plan
-
O2
BPAP
BDs
CS taper
CHF mgmt
Assessment
-
Impression:
Acute hypoxemic respiratory failure due to pulmonary edema requiring intubation and mechanical ventilation-elevated filling pressures on right heart catheterization 09/21/2023
Intubated by anesthesia at laborer/grade check 09-20 due to orthopnea and resp distress in spite of BPAP
Extubated 09/22/2023
Acute on chronic heart failure with preserved ejection fraction/non-ST elevation myocardial infarction? Type II
Chest x-ray 09/21/2023: Reviewed showed mild cardiomegaly. Mild pulmonary vascular congestion. Small right pleural effusion.
Hypertensive urgency
Chronic anemia
Chronic leukocytosis
SUAD - DDx includes hypoperfusion from cardiorenal syndrome vs ATN from over-diuresis
Conditions present prior admission:
Conditions present INFLATED PAD BUFFER
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
COPD
Moderate obstruction with positive/significant bronchodilator response, follows Dr White
Chronic cough noted
Upper airway cough syndrome
Moderate cigarette smoker (10-19 cigs/day) with longstanding tobacco abuse with [id number] history
TIA, recurrent
Ovarian cancer diagnosed age (no chemo, RT)
Hypertension
Hypercholesterolemia
Hypothyroidism
Moyamoya disease
CAD with occluded RCA
CKD 3/4
Vulva cancer (no RT, chemotherapy)
PAD
Appendectomy 02/1992
Hysterectomy, BSO, omentectomy 02/1992
Partial vulvectomy 2009
Brain bypass x3
Appendectomy
Plan:
Adm through ER 09-20: CHF
Intubated by anesthesia at laborer/grade check 09-20 due to orthopnea and resp distress in spite of BPAP
Extubated 09/22/2023
R/LHC : PCWP 25, known CAD
Oxygen supplementation improved down to RA after cardiology started steroids on 09/27 --> she then developed SOB with worsening hypoxia on 09/30 requiring 3-4L/min NC
Complained of chest tightness --> Chest x-ray from 09/28 shows persistent small bilateral pleural effusions with increased pulm vascular congestion, similar to last CXR on 09/25/2023 although it appears her left hemithorax has slightly better
aeration.; proBNP also very high at >27,000
PA catheter has been discontinued 09/25/2023
Initially had responded to IV diuresis; considering proBNP still remains at >27,000 with CXR findings, Lasix was increased by nephrology; however sCr 3.5 worsening on 09/29 and it has continued to rise. CT chest/abd/pelvis checked on 09/30 showing
bilateral pleural effusions, ascites, and GB edema; lasix gtt being started as per nephrology; evaluate patient's symptoms + labs daily - she may end up needing HD if that is in her goals of care.
Checked RUQ US - given the pericholecystic edema seen on CT A/P from 10/01/2023
US: Trace gallbladder sludge. Small gallbladder stone versus polyp. Mild gallbladder wall thickening. Negative sonographic Hurt's sign. No findings to suggest biliary tract dilatation.
Continue BPAP as needed during daytime and also every night for decompensated HF
Chest x-ray 09/25/2023: Reviewed,PA catheter in adequate position. Slightly worsening left basilar and retrocardiac opacity likely atelectasis/pleural effusion. Pulmonary vascular congestion improved.
Chest x-ray 09/29/2023: Reviewed; Pulmonary vascularity borderline prominent; Mild cardiomegaly; Small bilateral pleural effusions.
During this hospital stay no bronchospasm noted.
Acute on chronic heart failure with reduced ejection fraction
Status post right heart catheterization 09/21/2023:
1. Right dominant circulation with chronic total occlusion of the proximal RCA, collateralized by the left system.
3. Hypertensive emergency.
4. Acute congestive heart failure.
5. Severely elevated filling pressures (LVEDP = 25 mmHg, PCWP = 25 mmHg at 68.0 kg).
6. Severe vasculopathy including moyamoya status post carotid artery bypass and recent aortoiliac angioplasty and stent placement.
Cardiology correspondence reviewed:
Echocardiogram: 09/22/2023 Mildly reduced left ventricular ejection fraction. Inferior wall and apical hypokinesis. LVEF 40%. No significant valvular disease. Normal right atrium. Normal right ventricle.
Status post Bumex drip
Continue IV diuretics, no on lasix iv bid per cardiology and nephrology.
Trend UO, wt
Follow renal function and electrolytes.
Back on oral anticoagulants with Eliquis since 09/25/2023
Monitor for bleeding.
Continue to monitor hemoglobin. Patient is anemic but has been stable. Anemia contributing to shortness of breath as well.
Since she now has an SUAD, I gave her a dose of albumin + NS 500cc bolus on 09/29 and liberalized her fluid restriction to 64 ounces
Trend her sCr --> Cr continues to worsen. No additional IVF given, pt continue to be diuresed. Lasix gtt being started per nephrology. Trend I/O and daily weights, UOP.
She may need HD; renal following closely
Low-grade fevers-possibly aspiration pneumonitis. Resolved.
Never started on antibiotics.
Chronic leukocytosis.
Hypoxemic respiratory failure: Improved with diuresis down to RA as of 09/28
Not bronchospastic on exam
Encourage incentive spirometry
Increase physical activity. Physical therapy has been ordered.
Steroids started on 09/27 by cardiology --> started weaning down steroids on 09/29 to 40mg IV q12hr (solumedrol) from 60mg IV a12hr --> weaning down to 20mg IV q12hr on 10-01, transition to prednisone taper 10-03 to off, not on chronic CS
Glycemic control: Insulin as needed.
Target blood sugar 140-180
COPD without bronchospasm.
Severe COPD via PFT from September 14, 2023 with post BD FEV1 1.36 L / 49%. Very severe gas exchange capacity defect with DLCO: 34% (DLco/VA: 45%)
Continue Pulmicort twice a day
Continue Xopenex 3 times a day
DuoNebs as needed
Eventual outpatient follow-up with Dr. Choudhury
CT chest/abd/pelvis done on 09/30 shows small bilateral pleural effusions with moderate cardiomegaly - no evidence for interstitial lung disease, and no significant emphysema on 09/02/[address] chest
Physical therapy as tolerated
Occupational Therapy as tolerated
Lowered the dose of prn Xanax as she is somewhat lethargic (0.25 mg po tid prn)
Started scheduled buspirone 10-01. Cautiously give any narcotic given her waxing and waning mental status with lethargy and excessive sleepiness
GOC discussion: Dr Choudhury discussed goals of care with the patient and mentioned hospice. She is not currently ready for hospice. at bedside during that conversation. They want to continue full medical management for now and they still
are not sure about dialysis if it comes to that. For now we will continue with aggressive diuresis and trending her labs.
Pulmonary will continue to follow briefly for history of COPD and hypoxemia - she already has appointment set up with me on 11/03/2023. We will try to get this moved up if she survives this hospitalization.
Prognosis guarded
Diagnostic Data
Chest X-ray: 09/29/2023-Pulmonary vascularity borderline prominent; mild cardiomegaly; Small bilateral pleural effusions.
Chest X-ray: 09/07/2023-Small right and trace left pleural effusions with associated probable atelectasis, slightly progressed.
Chest X-Ray: 09/01/23- No acute cardiopulmonary process.
CT Chest/Abd/Pelvis 10/01/2023:
1).There are small bilateral pleural effusions, increased in volume when compared with the prior study and associated with compressive atelectasis at both lung bases
2). There is a 2 cm pleural-based area of parenchymal airspace disease in the anteromedial aspect of the lingula, new when compared with the prior study which may be atelectasis or minimal pneumonia
3). There is moderate cardiomegaly
4).There is moderate pericholecystic edema at the gallbladder such as may be seen with cholecystitis.
5). There is aortobiiliac stent graft
6). There is mild left-sided renal cortical atrophy
7).There is moderate ascites in the pelvis
CT Scan: AP 06/25/23- IMPRESSION:
1. Advanced aortic atherosclerotic changes without aneurysmal dilation. Irregular mural thrombus along distal thoracic and abdominal aorta. Moderate stenosis of the infrarenal aorta.
2. High-grade stenosis of the proximal right common iliac artery. Moderate stenosis left common iliac artery. Left profunda femoral stenosis. Three-vessel runoff on the right and 2 vessel runoff on left.
3. Bilateral renal cortical scarring. Atrophic changes of the left kidney as compared with the right.
[facility] 04/09/23- CONCLUSIONS
1: Inferobasal akinesis with EF 54%
2: Single-vessel CAD (chronic total occlusion of the proximal RCA)
3. Recommend continued medical therapy with aspirin and high intensity statin
Echo 09/08/23:
Normal LV size with normal systolic function.
LVEF is 55% by Aguilar's method of discs..
RCA territory mild hypokinesis.
Mild concentric LVH.
Stage I diastolic dysfunction suggestive of abnormal relaxation.
Normal right ventricular size and function.
Mild mitral regurgitation.
Echo: 03/23/23- Normal biventricular size and systolic function without regional wall motion abnormality. Possible basal to mid inferior hypokinesis. Mild concentric left ventricular hypertrophy.
No significant valvular disease. Compared to previous echo 05/10/12, the possible basal inferior hypokinesis is new.
PFT's: 05/28/23- FVC was 2.06L or 58% predicted. FEV1 was 1.10L or 40% predicted. Ratio 53. Post FEV1 was 1.22L or 44% predicted, 11% change.
Lung volumes: TLC was 4.05L or 74% predicted. RV/TLC was 49%. Diffusion was 10.17 or 42% predicted. When adjusted for hemoglobin was unchanged.
Spirometry demonstrates severe obstruction. There was significant bronchodilator response in the FVC. Lung volumes demonstrate mild restriction. There is borderline air trapping. There is a moderate diffusion impairment.
Subjective Data
-
Date of Service:
Date of Service: October 03, 2023
Chief Complaint: Pulmonary Follow Up
Subjective:
Continues on diuretic, currently furosemide gtt
On BPAP 12/5, O2 4L, POx 97%
Sleepy but arousable, appears comfortable on BPAP
Review of Systems
General: Other (lethargic, wakes up, answers few questions and simple commands)
Objective Data
Data Reviewed
Vital Signs / I&O / Oxygen:
Vital Signs
Temp Pulse Resp BP Pulse Ox
97.5 F 80 14 140/92 94
10/03/23 11:34 10/03/23 13:33 10/03/23 13:33 10/03/23 06:00 10/03/23 09:52
Intake and Output
10/02/23 10/03/23 10/04/23
06:59 06:59 06:59
Intake Total 240 / 240 480 / 480
Output Total 400 / 400 1125 / 1125
Balance -160 / -160 -645 / -645
SaO2 [A/C] 93
SaO2 94
Nasal Cannula flow liters per 3
minute
Physical Exam
General: Respiratory Distress (trace on BPAP) and Comfortable
HEENT: Normocephalic, Anicteric and Other (BPAP FFM)
Cardiovascular: S1-S2, Peripheral Edema (negative) and Calf Tenderness (n)
Respiratory: Wheeze (negative), Crackles (Bilateral (bases to midlung ramos bilaterally)), Rhonchi (negative), Stridor (n) and Other (Reduced breath sounds on right hemithorax)
GI: Soft, Distended (Mild), Non Tender and Normal Bowel Sounds
Neurology: Lethargic (but responds to simple questions and commands)
Skin: Warm, Dry and Jaundice (negative)
Labs/Micro/Reports
Lab Data
09/30/23 06:41
10/03/23 05:45
--- NOTE | 2023-10-03 15:29 | W.PN.NEPH.PH ---
Today's Communication / Plan
-
- discussing intitiation of dialysis
Assessment/Plan
-
Impression:
Chest pain shortness of breath: Congestive heart failure decompensation/non-ST elevation PA
Chronic kidney disease stage IV with baseline creatinine of 2
Hypertension urgency
Aorta iliac revascularization following potential atheroembolism August 2023
COPD
Moyamoya disease/complex peripheral arterial disease
Intubation
echo EF 40-45%, WMA
Plan:
Kidney function climbing to 4.8. had some diuresis, fluids, etc. CT with signs of worsening volume overload.
good urinary response to lasix gtt with 800cc out
Chest x-ray personally reviewed notes interstitial edema, CT scan reviewed and shows worsening pleural effusions
maintain FR for hyponatremia
pulmonary capillary wedge pressure of 25 following cardiac cath (no intervention performed) at wt of 65.4 on 09/20. today weight at 65.9kg
follow labs
Patient clinically high risk with decompensated congestive heart failure worsening renal failure requiring IV diuretics
Discussion about possible need for dialysis if unable to maintain volume status without potentiating profound azotemia and renal failure, patient considering.
Discussed with both patient and
Patient could still be a candidate for GDMT after stabilization of kidney function
-
-
Date of Service: October 03, 2023
CC / HPI / ROS
-
Chief Complaint:
CKD
History of Present Illness:
cr elevated to 4.8
sodium down to 133
s/p extubation 09/21
hg b at 8.6
Hemodynamically stable
Review of Systems:
sob worse last evening
weights up
no cp, or n/v
Urine output slightly better at 800cc
Labs
-
Labs:
WBC 22.2 10^3/uL (4.8-10.8) H 09/30/23 06:41
RBC 2.87 10^6/uL (4.20-5.40) L 09/30/23 06:41
Hgb 8.6 g/dL (12.0-16.0) L 09/30/23 06:41
Hct 26.3 % (37.0-47.0) L 09/30/23 06:41
Plt Count 488 10^3/uL (130-400) H 09/30/23 06:41
Sodium 133 mmol/L (135-145) L 10/03/23 05:45
Potassium 4.5 mmol/L (3.5-5.1) 10/03/23 05:45
Chloride 89 mmol/L (98-107) L 10/03/23 05:45
Carbon Dioxide 23 mmol/L (22-30) 10/03/23 05:45
BUN 117 mg/dl (7-17) H* 10/03/23 05:45
Creatinine 4.8 mg/dL (0.6-1.0) H* 10/03/23 05:45
eGFR 9.64 10/03/23 05:45
Glucose 229 mg/dl (70-99) H 10/03/23 05:45
Calcium 8.2 mg/dl (8.4-10.2) L 10/03/23 05:45
Phosphorus 5.0 mg/dl (2.5-4.5) H 09/21/23 19:10
Fqa-C-Tznnoamgzyk Pept > 24434 pg/ml 09/29/23 04:09
Albumin 4.0 g/dl (3.5-5.0) 10/03/23 05:45
Physical Exam
-
Vital Signs:
Vital Signs
Temp Pulse Resp BP Pulse Ox
97.5 F 80 14 140/92 94
10/03/23 11:34 10/03/23 13:33 10/03/23 13:33 10/03/23 06:00 10/03/23 09:52
Cardiovascular:: Regular rate and rhythm
Respiratory:: Bilateral: Coarse
Lung Excursion:: Normal
Abdomen:: Nontender and Soft
Bowel Sounds:: Normal
Extremity Edema:: None: Bilateral:
Portillo Catheter: Yes
[2023-10-03] MEDS: TOPROL XL 25 MG PO (17:47)
--- NOTE | 2023-10-03 18:26 | PTCARENOTE ---
Patient with complaints of chest pressure, stated might be related to anxiety. EKG done. Buspar given early. Hospitalist made aware and ok'd early Buspar. Currently on BiPAP. Call ríos in reach.
[2023-10-03] MEDS: CYMBALTA DELAYED RELEASE 30 MG PO (19:51)
[2023-10-03] MEDS: MORPHINE SULFATE 1 MG IV (19:52)
[2023-10-03] MEDS: MELATONIN 5 MG PO (19:52)
[2023-10-03] MEDS: LIDOCAINE 4% PATCH 1 PATCH TOPICAL (19:53)
[2023-10-04] VITALS (25 sets, daily range): BP systolic 125–170; BP diastolic 83–101; PULSE 2–88; BMI 22.4
--- NOTE | 2023-10-04 00:15 | PTCARENOTE ---
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 pt said she is leaning towards accepting HD- notified nephrology of events
[2023-10-04] MEDS: SYNTHROID 100 MCG PO (06:13)
[2023-10-04] MEDS: XANAX 0.25 MG PO ×3 (06:13→22:10)
[2023-10-04 06:59] LABS: Blood Urea Nitrogen 140 mg/dl (7-17); Calcium 8.5 mg/dl (8.4-10.2); Carbon Dioxide 22 mmol/L (22-30); Chloride 87 mmol/L (98-107); Estimated Creatinine Clearance 13 ml/min; Glucose 221 mg/dl (70-99); Potassium 4.2 mmol/L (3.5-5.1); Sodium 132 mmol/L (135-145)
[2023-10-04] MEDS: XOPENEX 0.63 MG INHALANT SOLUTION 0.630000000000000004 MG INH ×3 (07:26→20:21)
[2023-10-04] MEDS: PULMICORT 0.5 MG INH ×2 (07:26→20:21)
--- NOTE | 2023-10-04 08:53 | W.PN.CD ---
Today's Communication / Plan
-
Although creatinine has decreased from 4.8-4.3. BUN is now up to 140. Defer to nephrology regarding decisions related to dialysis
Some inspiratory chest discomfort will check chest x-ray
White blood cell count rising. May be multifactorial patient is on steroids. Defer to primary team regarding other issues that may be contributing to leukocytosis.
Impression / Plan
-
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
chest pressure, prompting cardiac catheterization, at which time she went into flash pulmonary edema from hypertensive crisis, requiring intubation and aggressive BP management.
SUAD on top of CKD: severe
-Based on prior notes it was suspected too rapid diuresis and cardiorenal syndrome
-At 63.5 kg she felt well but but then apparently had some more heart failure-like symptoms when we increased to 64.5 kg. Patient has been receiving additional diuretic with furosemide although weights now appear up to 65.9.
Creatinine is is 4.8 now down to 4.3 but BUN is risen to 140.
-Will defer to nephrology regarding worsening renal function and any future needs for dialysis.
HFmidrangeEF, acute on chronic
- Dry weight less than 64.5 and likely close to 63.5 kg. She is 64.4 kg today. Crackles to b/l bases, requiring O2, mildly increased WOB. At 68 kg LVEDP = 25 mmHg, PCWP = 25 mmHg (also unclear the exact accuracy of weight at the time of
catheterization there were 2 weights at 68 kg and 1 weight 64.7 kg on that day. On 61 on 61 weight was 65.7 and 65.8)
- Now on HF BB
- GDMT currently limited due to SUAD.
-Challenging issue patient may still need additional volume removed and may ultimately need HD. Despite being negative more than a liter weights remain unchanged.
Some chest discomfort with inspiration. Will check chest x-ray
Ascites. Moderate based on CT 09/30/2022
Single vessel CAD with chronic RCA occlusion. Cath this admit stable.
PAD/aortic atherosclerosis
-Recent infrarenal aorta/iliac revascularization for potentially atheroembolism (AFX 25-90/16-30, 28-95 proximal extension).
-CTA post procedure comments on residual mural thrombus in descending thoracic aorta.
-Dr. Brooks saw in ER and reports vascular issues stable.
-Apixaban restarted on 09/25/2023
HTN
-Goal BP includes consideration of her complex cerebral vascular disease
-monitor closely (see below)
COPD: now on IV steroids
Moyamoya disease, prior carotid bypass.
-Previously recommended SBP of 140-160 to maintain cerebral perfusion. However, patient reports that neurologist said okay to bring down BP's a bit (slowly) and do neuro checks.
Subjective:
Patient looks tired. She is OOB to chair.
Mildly increased WOB
Physical Exam
Vital Signs/Labs
Vital Signs
Temp Pulse Resp BP Pulse Ox
97.6 F 75 18 142/85 93
10/04/23 08:10 10/04/23 06:16 10/04/23 06:16 10/04/23 06:16 10/04/23 06:16
10/03/23 10/04/23 10/05/23
06:59 06:59 06:59
Actual Weight 64.4 kg 64.7 kg
09/30/23 06:41
10/04/23 06:03
PT 16.6 Sec (11.4-14.6) H 09/26/23 04:26
INR 1.36 09/26/23 04:26
APTT 49.4 Sec (23.4-35.0) H 09/26/23 04:26
Magnesium 1.8 mg/dl (1.6-2.3) 09/28/23 05:32
Triglycerides 143 mg/dl (10-149) 09/22/23 03:57
LDL Cholesterol, Calc 46 mg/dl 09/22/23 03:57
VLDL Cholesterol, Calc 28 mg/dl (0-30) 09/22/23 03:57
HDL Cholesterol 44 mg/dl 09/22/23 03:57
09/21/23 09/29/23
14:07 04:09
Rjg-[id number]-Vqpvjpypsol Pept > 05545 > 27753
Physical Exam
Constitutional: No acute distress
Cardiovascular: Rhythm & rate is regular
Respiratory: Wheeze Absent and Other (Decrease abrade bases right more decreased than left)
Neuro/Psych: Alert
Data Reviewed
-
Date of Service: October 04, 2023
Medical Decision Making: Reviewed Test Results
EKG: Report Reviewed by me
Medical Tests (PFT, Pathology etc): Report Reviewed by me
Labs: Labs Reviewed by me
[2023-10-04] MEDS: TYLENOL 500 MG PO (08:55)
[2023-10-04] MEDS: DELTASONE 40 MG PO (08:55)
[2023-10-04] MEDS: VITAMIN D3 (cholecalciferol) 50 MCG PO (08:55)
[2023-10-04] MEDS: SENOKOT-S PO ×2 (08:56→20:29)
[2023-10-04] MEDS: ELIQUIS 5 MG PO ×2 (08:56→20:29)
[2023-10-04] MEDS: BUSPAR 5 MG PO ×2 (08:56→20:29)
[2023-10-04] MEDS: LOW STRENGTH ASPIRIN 81 MG PO (08:56)
[2023-10-04] MEDS: MUCINEX 1200 MG PO ×2 (08:56→20:29)
[2023-10-04] MEDS: MIRALAX PO (08:56)
--- NOTE | 2023-10-04 09:00 | PTCARENOTE ---
report received from previous RN- pt drowsy arouses to voice. AAOx3. pt reports some chest tightness, right shoulder pain. prn tylenol given. SR on telemetry heart rate in 70s. pt on 3L nasal cannula, sat 94-95%. ramsey. syed draining adi urine.
active bowel sounds, poor appetite. pt and updated on plan of care. see worklist for full nursing assessment
--- NOTE | 2023-10-04 11:28 | W.PN.HOSP.TC ---
Today's Communication/Plan
-
BiPAP nightly as needed
Chest ultrasound
Encourage increased p.o. intake
Wean oxygen as tolerated
Monitor urinary output
Assessment / Plan
Assessment / Plan
63-year-old female with past medical history of PAD with recent aortoiliac stent, CAD, CKD IV, moyamoya syndrome, hypothyroidism, hyperlipidemia, hypertension, ovarian cancer, TIA, COPD, brain bypass x 3 came to the hospital with chest pain and
shortness of breath. EKG with new ST depressions. Initial troponin is 0.215 with a proBNP greater than 27,000, creatinine 2.0 (baseline). She was taken urgently to cardiac cath complicated by acute resp failure requiring intubation; shown to have
severely elevated filling pressures. No new CAD. She required intubation, admitted to ICU with Line [place]-Y[place]any catheter placed, IV Bumex gtt.
.
#Acute kidney injury on CKD stage IIIb
#Mild hyponatremia
-Baseline ~2. Did received contrast on admission. However, greater than 1 week at this point.
-creatinine bumped to 4.8 today.
-BUN severely elevated ?due to steroids
-Per cards, monitor clinically and no plan for repeat RHC.
-IV Lasix discontinued and started on Lasix infusion.
-syed to monitor urinary output. wt uptrended.
-Mild downtrend in creatinine.
-May require dialysis.
-appreciate renal consult
#Acute hypoxemic respiratory failure secondary pulmonary edema requiring intubation mechanical ventilation, elevated filling pressures on the catheterization
#Hypertensive emergency with flash pulmonary edema
#Acute on chronic congestive heart failure with preserved ejection fraction
#Non-LA troponin elevation
-cardiac cath without significant CAD;+ elevated pressures
-required intubation in pathology laboratory aide 09/20; s/p extubation on 09/21
-Bumex gtt stopped 09/23
-Lasix uptitrated to 60 mg twice daily to daily and subsequently now started on Lasix infusion
-Line [place]-Y[place]any catheter now out
-Per patient discussion with her primary neurologist who stated okay for blood pressure to be lowered further if needed and to be monitored neurologic
-continue aspirin/statin restarted
-Plan for of goal-directed medical therapy pending stabilization of creatinine probably as outpatient.
-CXR on 09/30 am-reviewed bilateral pleural effusion. Stable. Cardiomegaly is stable.
-Chest ultrasound to assess for pleural effusion.
#Acute COPD exacerbation
-Continue bronchodilators. Severe COPD recent PFTs.
-Not severely wheezing or bronchospastic. downtitration of steroids to 20mg f30w-Esv consider further downtitration
# Leukocytosis likely secondary to high-dose steroids
-Down titration of steroids to p.o. steroid taper. Afebrile. CBC in the morning
# Dyspnea likely multifactorial CHF and COPD
Plan as above
improving
exacerbated at times due to severe anxiety/panic attacks
BiPAP nightly and as needed
#Hyponatremia ?due to hypovolemia 2/2 diuresis
-trend for now. Lasix been held
-If no improvement check urine studies in 24h.
#moderate pericholecystic edema at the gallbladder
-AST/ALT elevated but could be due to congestion
-No severe RUQ pain-d/w with spouse who also agreed
-Abdominal ultrasound-Trace gallbladder sludge. Small gallbladder stone versus polyp. Mild gallbladder wall thickening. Negative sonographic Hurt's sign. No findings to suggest biliary tract dilatation.
-Continue to monitor for diet tolerance. Monitor for diet tolerance
Hypokalemia
-repleted
# Chronic leukocytosis worsening in setting of sterodis
Fever 09/21, likely 2/2 aspiration pneumonitis
-afebrile overnight and does not appear infected since
# Normocytic anemia
-No active bleeding
-Continue to trend, stable
-iron studies - anemia inflammation
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
-bilaterally s/p diagnostic arteriogram, AFX stent graft placement, balloon angioplasty 09/01/23
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
#Livedo reticularis
-vascular following; no acute issues from vascular standpoint
#essential HTN
-started on toprol.
#anxiety/panic attacks
-duloxetine continued
-increase xanax to 0.5mg TID prn for now.
#hypothyroidism
-levothyroxine continued
# ex Smoker
#Mixed hyperlipidemia
-statin continued
#Moyamoya syndrome, 3 surgical interventions
Per patient discussion with her primary neurologist who stated okay for blood pressure to be lowered further if needed and to be monitored neurologically.
#DVT prophylaxis - Eliquis
#CODE status
-full code
d/w with spouse at bedside in details for prolonged period of time and explained prognosis moving forward
Discussed with nephrology and cardiology
Anticipated Discharge: > 48 hours
Subjective/Interval History
-
Date of Service: October 04, 2023
Overnight events noted
remains on oxygen
Objective Data
-
Labs:
Laboratory Results
10/04/23
06:03
Sodium 132 L
Potassium 4.2
Chloride 87 L
Carbon Dioxide 22
BUN 140 H*
Creatinine 4.3 H*
Glucose 221 H
Calcium 8.5
Vital Signs:
Vital Signs
Temp Pulse Resp BP Pulse Ox
97.6 F 75 18 142/85 93
10/04/23 08:10 10/04/23 06:16 10/04/23 06:16 10/04/23 06:16 10/04/23 06:16
I&O
10/03/23 10/04/23 10/05/23
06:59 06:59 06:59
Intake Total 480 / 480 220 / 220
Output Total 1125 / 1125 1375 / 1375
Balance -645 / -645 -1155 / -1155
Data Reviewed
-
Total Time Spent with Patient (in minutes): 56
--- NOTE | 2023-10-04 12:38 | W.PN.NEPH.PH ---
Today's Communication / Plan
-
- trend Cr and UOP
Assessment/Plan
-
Impression:
Chest pain shortness of breath: Congestive heart failure decompensation/non-ST elevation NV
Chronic kidney disease stage IV with baseline creatinine of 2
Hypertension urgency
Aorta iliac revascularization following potential atheroembolism August 2023
COPD
Moyamoya disease/complex peripheral arterial disease
Intubation
echo EF 40-45%, WMA
Plan:
Kidney function peak at 4.8, now down to 4.3. had some diuresis, fluids, etc. CT with signs of worsening volume overload. BUN continues to climb --> cardiorenal + steroids
good urinary response to lasix gtt with 1.6L UOP
Chest x-ray personally reviewed notes interstitial edema, CT scan reviewed and shows worsening pleural effusions
maintain FR for hyponatremia
pulmonary capillary wedge pressure of 25 following cardiac cath (no intervention performed) at wt of 65.4 on 09/20. today weight at 64.7kg
follow labs
Patient clinically high risk with decompensated congestive heart failure worsening renal failure requiring IV diuretics
Discussion about possible need for dialysis if unable to maintain volume status without potentiating profound azotemia and renal failure, patient OK with HD but only if absolutely necessary
Discussed with both patient and
-
-
Date of Service: October 04, 2023
CC / HPI / ROS
-
Chief Complaint:
CKD
History of Present Illness:
cr elevated to 4.8, now down to 4.3
sodium down to 132
s/p extubation 09/21
hg b at 8.6
Hemodynamically stable
Review of Systems:
sob worse last evening
weights up
no cp, or n/v
Urine output better at 1.6L
Labs
-
Labs:
WBC 22.2 10^3/uL (4.8-10.8) H 09/30/23 06:41
RBC 2.87 10^6/uL (4.20-5.40) L 09/30/23 06:41
Hgb 8.6 g/dL (12.0-16.0) L 09/30/23 06:41
Hct 26.3 % (37.0-47.0) L 09/30/23 06:41
Plt Count 488 10^3/uL (130-400) H 09/30/23 06:41
Sodium 132 mmol/L (135-145) L 10/04/23 06:03
Potassium 4.2 mmol/L (3.5-5.1) 10/04/23 06:03
Chloride 87 mmol/L (98-107) L 10/04/23 06:03
Carbon Dioxide 22 mmol/L (22-30) 10/04/23 06:03
BUN 140 mg/dl (7-17) H* 10/04/23 06:03
Creatinine 4.3 mg/dL (0.6-1.0) H* 10/04/23 06:03
eGFR 11.00 10/04/23 06:03
Glucose 221 mg/dl (70-99) H 10/04/23 06:03
Calcium 8.5 mg/dl (8.4-10.2) 10/04/23 06:03
Phosphorus 5.0 mg/dl (2.5-4.5) H 09/21/23 19:10
Nwu-O-Lsjjkzeydvv Pept > 26235 pg/ml 09/29/23 04:09
Albumin 4.0 g/dl (3.5-5.0) 10/03/23 05:45
Physical Exam
-
Vital Signs:
Vital Signs
Temp Pulse Resp BP Pulse Ox
97.6 F 71 14 125/87 96
10/04/23 11:40 10/04/23 12:19 10/04/23 12:19 10/04/23 12:19 10/04/23 12:19
Cardiovascular:: Regular rate and rhythm
Respiratory:: Bilateral: Coarse
Lung Excursion:: Normal
Abdomen:: Nontender and Soft
Bowel Sounds:: Normal
Extremity Edema:: None: Bilateral:
Portillo Catheter: Yes
[2023-10-04] MEDS: LASIX 50 IV (12:47)
--- NOTE | 2023-10-04 13:03 | W.PN.PUL3 ---
Today's Communication / Plan
-
O2
BPAP prn
Diuretics
BDs
CS taper
Assessment
-
Impression:
Acute hypoxemic respiratory failure due to pulmonary edema requiring intubation and mechanical ventilation-elevated filling pressures on right heart catheterization 09/21/2023
Intubated by anesthesia at [employer] 09-20 due to orthopnea and resp distress in spite of BPAP
Extubated 09/22/2023
Acute on chronic heart failure with preserved ejection fraction/non-ST elevation myocardial infarction? Type II
Chest x-ray 09/21/2023: Reviewed showed mild cardiomegaly. Mild pulmonary vascular congestion. Small right pleural effusion.
Hypertensive urgency
Chronic anemia
Chronic leukocytosis
SUAD - DDx includes hypoperfusion from cardiorenal syndrome vs ATN from over-diuresis
Conditions present prior admission:
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
COPD
Moderate obstruction with positive/significant bronchodilator response, follows Dr White
Chronic cough noted
Upper airway cough syndrome
Moderate cigarette smoker (10-19 cigs/day) with longstanding tobacco abuse with [id number] history
TIA, recurrent
Ovarian cancer diagnosed age (no chemo, RT)
Hypertension
Hypercholesterolemia
Hypothyroidism
Moyamoya disease
CAD with occluded RCA
CKD 3/4
Vulva cancer (no RT, chemotherapy)
PAD
Appendectomy 02/1992
Hysterectomy, BSO, omentectomy 02/1992
Partial vulvectomy 2009
Brain bypass x3
Appendectomy
Plan:
Adm through ER 09-20: CHF
Intubated by anesthesia at [employer] 09-20 due to orthopnea and resp distress in spite of BPAP
Extubated 09/22/2023
R/LHC 06-10: PCWP 25, known CAD
Oxygen supplementation improved down to RA after cardiology started steroids on 09/27 --> she then developed SOB with worsening hypoxia on 09/30 requiring 3-4L/min NC
Complained of chest tightness --> Chest x-ray from 09/28 shows persistent small bilateral pleural effusions with increased pulm vascular congestion, similar to last CXR on 09/25/2023 although it appears her left hemithorax has slightly better
aeration.; proBNP also very high at >27,000
PA catheter has been discontinued 09/25/2023
Initially had responded to IV diuresis; considering proBNP remained elevated with CXR findings, Lasix was increased by nephrology; however sCr 3.5 worsening on 09/29 and it has continued to rise.
CT chest/abd/pelvis checked on 09/30 showing bilateral pleural effusions, ascites, and GB edema; lasix gtt being started as per nephrology; evaluate patient's symptoms + labs daily - she may end up needing HD if that is in her goals of care.
Checked RUQ US - given the pericholecystic edema seen on CT A/P from 10/01/2023
US: Trace gallbladder sludge. Small gallbladder stone versus polyp. Mild gallbladder wall thickening. Negative sonographic Hurt's sign. No findings to suggest biliary tract dilatation.
Continue BPAP as needed during daytime and also every night for decompensated HF
Not on home O2 or PAP therapy by report
Has adapted relatively well to BPAP as inpatient
Chest x-ray 09/25/2023: Reviewed,PA catheter in adequate position. Slightly worsening left basilar and retrocardiac opacity likely atelectasis/pleural effusion. Pulmonary vascular congestion improved.
Chest x-ray 09/29/2023: Reviewed; Pulmonary vascularity borderline prominent; Mild cardiomegaly; Small bilateral pleural effusions.
During this hospital stay no bronchospasm noted.
Acute on chronic heart failure with reduced ejection fraction
Status post right heart catheterization 09/21/2023:
1. Right dominant circulation with chronic total occlusion of the proximal RCA, collateralized by the left system.
3. Hypertensive emergency.
4. Acute congestive heart failure.
5. Severely elevated filling pressures (LVEDP = 25 mmHg, PCWP = 25 mmHg at 68.0 kg).
6. Severe vasculopathy including moyamoya status post carotid artery bypass and recent aortoiliac angioplasty and stent placement.
Cardiology correspondence reviewed:
Echocardiogram: 09/22/2023 Mildly reduced left ventricular ejection fraction. Inferior wall and apical hypokinesis. LVEF 40%. No significant valvular disease. Normal right atrium. Normal right ventricle.
Status post Bumex drip
Continue IV diuretics, no on lasix iv bid per cardiology and nephrology.
Trend UO, wt
Follow renal function and electrolytes.
Back on oral anticoagulants with apixaban since 09/25/2023
Monitor for bleeding.
Continue to monitor hemoglobin. Patient is anemic but has been stable. Anemia contributing to shortness of breath as well.
Since she now has an SUAD, I gave her a dose of albumin + NS 500cc bolus on 09/29 and liberalized her fluid restriction to 64 ounces
Trend her sCr --> Cr continues to worsen. No additional IVF given, pt continue to be diuresed. Lasix gtt being started per nephrology. Trend I/O and daily weights, UOP.
She may need HD; renal following closely. Dr Shearer d/w patient and , will take HD only if absolutely necessasry
Low-grade fevers-possibly aspiration pneumonitis. Resolved.
Never started on antibiotics.
Chronic leukocytosis.
Hypoxemic respiratory failure: Improved with diuresis down to RA as of 09/28
Not bronchospastic on exam
Encourage incentive spirometry
Increase physical activity. Physical therapy has been ordered.
Steroids started on 09/27 by cardiology --> started weaning down steroids on 09/29 to 40mg IV q12hr (solumedrol) from 60mg IV a12hr --> weaning down to 20mg IV q12hr on 10-01, transition to prednisone taper 10-03 to off, not on chronic CS
Glycemic control: Insulin as needed.
Target blood sugar 140-180
COPD without bronchospasm.
Severe COPD via PFT from September 14, 2023 with post BD FEV1 1.36 L / 49%. Very severe gas exchange capacity defect with DLCO: 34% (DLco/VA: 45%)
Continue Pulmicort twice a day
Continue Xopenex 3 times a day
DuoNebs as needed
Eventual outpatient follow-up with Dr. Choudhury
CT chest/abd/pelvis done on 09/30 shows small bilateral pleural effusions with moderate cardiomegaly - no evidence for interstitial lung disease, and no significant emphysema on 09/02/[address] chest
Physical therapy as tolerated
Occupational Therapy as tolerated
Lowered the dose of prn Xanax as she is somewhat lethargic (0.25 mg po tid prn)
Started scheduled buspirone 10-01. Cautiously give any narcotic given her waxing and waning mental status with lethargy and excessive sleepiness
DNR status
GOC discussion: Dr Choudhury discussed goals of care with the patient and mentioned hospice. She is not currently ready for hospice. at bedside during that conversation. They want to continue full medical management for now and they still
are not sure about dialysis if it comes to that. For now we will continue with aggressive diuresis and trending her labs.
Pulmonary follow up at [facility] on 11/03/2023
D/w and Mrs Harris at bedside 10-03
Diagnostic Data
Chest X-ray: 09/29/2023-Pulmonary vascularity borderline prominent; mild cardiomegaly; Small bilateral pleural effusions.
Chest X-ray: 09/07/2023-Small right and trace left pleural effusions with associated probable atelectasis, slightly progressed.
Chest X-Ray: 09/01/23- No acute cardiopulmonary process.
CT Chest/Abd/Pelvis 10/01/2023:
1).There are small bilateral pleural effusions, increased in volume when compared with the prior study and associated with compressive atelectasis at both lung bases
2). There is a 2 cm pleural-based area of parenchymal airspace disease in the anteromedial aspect of the lingula, new when compared with the prior study which may be atelectasis or minimal pneumonia
3). There is moderate cardiomegaly
4).There is moderate pericholecystic edema at the gallbladder such as may be seen with cholecystitis.
5). There is aortobiiliac stent graft
6). There is mild left-sided renal cortical atrophy
7).There is moderate ascites in the pelvis
CT Scan: AP 06/25/23- IMPRESSION:
1. Advanced aortic atherosclerotic changes without aneurysmal dilation. Irregular mural thrombus along distal thoracic and abdominal aorta. Moderate stenosis of the infrarenal aorta.
2. High-grade stenosis of the proximal right common iliac artery. Moderate stenosis left common iliac artery. Left profunda femoral stenosis. Three-vessel runoff on the right and 2 vessel runoff on left.
3. Bilateral renal cortical scarring. Atrophic changes of the left kidney as compared with the right.
[facility] 04/09/23- CONCLUSIONS
1: Inferobasal akinesis with EF 54%
2: Single-vessel CAD (chronic total occlusion of the proximal RCA)
3. Recommend continued medical therapy with aspirin and high intensity statin
Echo 09/08/23:
Normal LV size with normal systolic function.
LVEF is 55% by Aguilar's method of discs..
RCA territory mild hypokinesis.
Mild concentric LVH.
Stage I diastolic dysfunction suggestive of abnormal relaxation.
Normal right ventricular size and function.
Mild mitral regurgitation.
Echo: 03/23/23- Normal biventricular size and systolic function without regional wall motion abnormality. Possible basal to mid inferior hypokinesis. Mild concentric left ventricular hypertrophy.
No significant valvular disease. Compared to previous echo 05/10/12, the possible basal inferior hypokinesis is new.
PFT's: 05/28/23- FVC was 2.06L or 58% predicted. FEV1 was 1.10L or 40% predicted. Ratio 53. Post FEV1 was 1.22L or 44% predicted, 11% change.
Lung volumes: TLC was 4.05L or 74% predicted. RV/TLC was 49%. Diffusion was 10.17 or 42% predicted. When adjusted for hemoglobin was unchanged.
Spirometry demonstrates severe obstruction. There was significant bronchodilator response in the FVC. Lung volumes demonstrate mild restriction. There is borderline air trapping. There is a moderate diffusion impairment.
Subjective Data
-
Date of Service:
Date of Service: October 04, 2023
Chief Complaint: Pulmonary Follow Up
Subjective:
No major events reported overnight
Used BiPAP last night for about 4 hours as reported by patient and her
Respiratory white improved regarding dyspnea
She is not on home O2 or PAP therapy at home
Reportedly, no change in distal toe cyanosis after vascular surgery on August 31 (aortoiliac stent graft)
Review of Systems
General: Fever (n), Sweats (n), Chills (n) and Satisfactory Appetite (n)
Cardiopulmonary: Dyspnea (n at rest on O2), Cough (n), Wheezing (n) and Chest Pain (n)
GI: Abdominal Pain (n), Nausea (n) and Vomiting (n)
Neuro: Weakness
Objective Data
Data Reviewed
Vital Signs / I&O / Oxygen:
Vital Signs
Temp Pulse Resp BP Pulse Ox
97.6 F 71 14 125/87 96
10/04/23 11:40 10/04/23 12:19 10/04/23 12:19 10/04/23 12:19 10/04/23 12:19
Intake and Output
10/03/23 10/04/23 10/05/23
06:59 06:59 06:59
Intake Total 480 / 480 220 / 220
Output Total 1125 / 1125 1375 / 1375 300 / 300
Balance -645 / -645 -1155 / -1155 -300 / -300
SaO2 [A/C] 93
SaO2 96
Nasal Cannula flow liters per 3
minute
Physical Exam
General: Respiratory Distress (trace on BPAP) and Comfortable
HEENT: Normocephalic, Anicteric, Moist Mucous Membranes, Thrush (n) and Other (BPAP FFM)
Cardiovascular: S1-S2, Regular Rhythm, Peripheral Edema (negative) and Calf Tenderness (n)
Respiratory: Wheeze (negative), Crackles (Bilateral (bases to midlung ramos bilaterally)), Rhonchi (negative), Stridor (n) and Other (Reduced breath sounds on R base)
GI: Soft, Distended (Mild), Non Tender and Normal Bowel Sounds
Neurology: Awake, Oriented and No Motor Deficits
Skin: Warm, Dry and Jaundice (negative)
Labs/Micro/Reports
Lab Data
09/30/23 06:41
10/04/23 06:03
--- NOTE | 2023-10-04 15:50 | CHAP ---
Tara was experiencing some respiratory distress, so it was difficult for her to speak. I summoned her nurse. While awaiting the nurse, we prayed together, which Tara said she appreciated.
[2023-10-04] MEDS: TOPROL XL 25 MG PO (18:15)
[2023-10-04] MEDS: CYMBALTA DELAYED RELEASE 30 MG PO (20:29)
[2023-10-04] MEDS: MELATONIN 5 MG PO (20:29)
[2023-10-04] MEDS: LIDOCAINE 4% PATCH TOPICAL (21:58)
[2023-10-05] VITALS (45 sets, daily range): BP systolic 68–153; BP diastolic 74–116; PULSE 2–77; BMI 22.2
[2023-10-05] MEDS: LASIX 50 IV ×2 (00:25→14:01)
[2023-10-05] MEDS: XANAX 0.25 MG PO (04:32)
[2023-10-05] MEDS: SYNTHROID 100 MCG PO (04:33)
[2023-10-05] MEDS: TYLENOL 500 MG PO ×2 (04:33→09:06)
[2023-10-05 05:39] LABS: INR 2.58; PT 27.6 Sec (11.4-14.6)
[2023-10-05 05:45] LABS: Calcium 8.5 mg/dl (8.4-10.2); Carbon Dioxide 24 mmol/L (22-30); Chloride 86 mmol/L (98-107); Glucose 221 mg/dl (70-99); Potassium 3.8 mmol/L (3.5-5.1); Sodium 133 mmol/L (135-145)
[2023-10-05 05:51] LABS: % Basophils 0.2 % (0-2); % Immature Granulocytes 1.9 % (0-0.5); % Lymphocytes 5.2 % (20.5-51.1); % Monocytes 4.5 % (1.7-9.3); % Neutrophils 88.2 % (42.2-75.2); Absolute Immature Granulocytes 0.4 10^3/uL (0-0.05); Absolute Monocytes 0.8 10^3/uL (0.1-0.6); Absolute Neutrophils 16.4 10^3/uL (1.4-6.5); Hematocrit 26.4 % (37.0-47.0); Hemoglobin 8.7 g/dL (12.0-16.0); Mean Corpuscular Hgb 30.9 pg (27.0-31.0); Mean Corpuscular Volume 93.6 fL (81.0-99.0); Mean Platelet Volume 11.3 fL (7.4-10.4); Nucleated Red Blood Cells % 4.6 %; Platelet Count 425 10^3/uL (130-400); Red Blood Cell Count 2.82 10^6/uL (4.20-5.40); Red Cell Dist. Width 20.6 % (11.5-14.5); White Blood Cell Count 18.6 10^3/uL (4.8-10.8)
[2023-10-05 05:56] LABS: Blood Urea Nitrogen 152 mg/dl (7-17); Estimated Creatinine Clearance 12 ml/min; eGFR 10.41
[2023-10-05] MEDS: PULMICORT 0.5 MG INH ×2 (07:26→20:06)
[2023-10-05] MEDS: XOPENEX 0.63 MG INHALANT SOLUTION 0.630000000000000004 MG INH ×3 (07:26→20:06)
[2023-10-05] MEDS: VITAMIN D3 (cholecalciferol) 50 MCG PO (09:00)
[2023-10-05] MEDS: LOW STRENGTH ASPIRIN 81 MG PO (09:01)
[2023-10-05] MEDS: BUSPAR 5 MG PO ×2 (09:01→21:10)
[2023-10-05] MEDS: ELIQUIS 5 MG PO ×2 (09:01→21:10)
[2023-10-05] MEDS: ROXICODONE 5 MG PO (09:01)
--- NOTE | 2023-10-05 09:05 | W.PN.PUL3 ---
Today's Communication / Plan
-
Continue diuresis per cardiology/nephrology
Follow renal function
From the pulmonary perspective: Continue with nebulizer therapy
Prednisone taper
Oxygen when needed to maintain pulse ox above 88%
Physical therapy as able
Assessment
-
Impression:
Acute hypoxemic respiratory failure due to pulmonary edema requiring intubation and mechanical ventilation-elevated filling pressures on right heart catheterization 09/21/2023
Intubated by anesthesia at phlebotomy lab assistant 09-20 due to orthopnea and resp distress in spite of BPAP
Extubated 09/22/2023
Acute on chronic heart failure with preserved ejection fraction/non-ST elevation myocardial infarction? Type II
Chest x-ray 09/21/2023: Reviewed showed mild cardiomegaly. Mild pulmonary vascular congestion. Small right pleural effusion.
Hypertensive urgency
Chronic anemia
Chronic leukocytosis
SUAD - DDx includes hypoperfusion from cardiorenal syndrome vs ATN from over-diuresis
Conditions present prior admission:
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
COPD
Moderate obstruction with positive/significant bronchodilator response, follows Dr White
Chronic cough noted
Upper airway cough syndrome
Moderate cigarette smoker (10-19 cigs/day) with longstanding tobacco abuse with 56-wtiu-gyci history
TIA, recurrent
Ovarian cancer diagnosed age (no chemo, RT)
Hypertension
Hypercholesterolemia
Hypothyroidism
Moyamoya disease
CAD with occluded RCA
CKD 3/4
Vulva cancer (no RT, chemotherapy)
PAD
Appendectomy 02/1992
Hysterectomy, BSO, omentectomy 02/1992
Partial vulvectomy 2009
Brain bypass x3
Appendectomy
Plan:
Adm through ER 09-20: CHF initially require mechanical ventilation.
R/LHC 09-20: PCWP 25, known CAD
-
Unfortunately, with aggressive diuresis worsening renal function.
Still complaining of dyspnea even at rest.
Hypoxemic respiratory failure: Improved on low rate supplemental oxygen now.
Pulmonary following regarding underlying severe COPD. Was not on therapy prior to admission.
-
Continue BPAP as needed during daytime and also every night for decompensated HF
Not on home O2 or PAP therapy by .
Has adapted relatively well to BPAP as inpatient, continue while in hospital.
Chest x-ray 10/04/2023: Reviewed; Pulmonary vascularity borderline prominent; Mild cardiomegaly; Small bilateral pleural effusions.
CT chest 10/01/2023: No significant emphysema or pulmonary fibrosis. Bibasilar compressive atelectasis and small pleural effusions.
-
COPD without bronchospasm.
No bronchospasm has been noted during this admission.
Severe COPD via PFT from September 14, 2023 with post BD FEV1 1.36 L / 49%. Very severe gas exchange capacity defect with DLCO: 34% (DLco/VA: 45%)
Continue Pulmicort twice a day
Continue Xopenex 3 times a day
DuoNebs as needed
Eventual outpatient follow-up with Dr. Choudhury
Encourage incentive spirometry
Steroids started on 09/27 by cardiology --> now has been transition to prednisone. Continue taper to off.
-
Acute on chronic heart failure with reduced ejection fraction
Status post right heart catheterization 09/21/2023:
1. Right dominant circulation with chronic total occlusion of the proximal RCA, collateralized by the left system.
3. Hypertensive emergency.
4. Acute congestive heart failure.
5. Severely elevated filling pressures (LVEDP = 25 mmHg, PCWP = 25 mmHg at 68.0 kg).
6. Severe vasculopathy including moyamoya status post carotid artery bypass and recent aortoiliac angioplasty and stent placement.
-
Echocardiogram: 09/22/2023 Mildly reduced left ventricular ejection fraction. Inferior wall and apical hypokinesis. LVEF 40%. No significant valvular disease. Normal right atrium. Normal right ventricle.
Cardiology continues to follow.
Lasix drip ongoing.
Acute kidney injury,
Worsening renal function noted. Nephrology following closely for possibility of dialysis. BUN>100
Discussions for possible dialysis ongoing.
-
Low-grade fevers-possibly aspiration pneumonitis. Resolved.
Never started on antibiotics.
Chronic leukocytosis. Steroids likely contributing to persistent leukocytosis.
Continue to monitor. No signs of infection.
-
Glycemic control: Insulin as needed. Particularly on systemic steroids.
Target blood sugar 140-180
-
Anemia noted: No evidence for bleeding.
Back on oral anticoagulants with apixaban since 09/25/2023
Continue to monitor hemoglobin.
Anemia contributing to shortness of breath as well.
Physical therapy as tolerated
Occupational Therapy as tolerated
DNR status
[facility] discussion: Dr Choudhury discussed goals of care with the patient and mentioned hospice. She is not currently ready for hospice. at bedside during that conversation. They want to continue full medical management for now and they still
are not sure about dialysis if it comes to that. For now we will continue with aggressive diuresis and trending her labs.
Pulmonary follow up at [facility] on 11/03/2023
D/w and Mrs Harris at bedside 10-03

Diagnostic Data
Chest X-ray: 09/29/2023-Pulmonary vascularity borderline prominent; mild cardiomegaly; Small bilateral pleural effusions.
Chest X-ray: 09/07/2023-Small right and trace left pleural effusions with associated probable atelectasis, slightly progressed.
Chest X-Ray: 09/01/23- No acute cardiopulmonary process.
CT Chest/Abd/Pelvis 10/01/2023:
1).There are small bilateral pleural effusions, increased in volume when compared with the prior study and associated with compressive atelectasis at both lung bases
2). There is a 2 cm pleural-based area of parenchymal airspace disease in the anteromedial aspect of the lingula, new when compared with the prior study which may be atelectasis or minimal pneumonia
3). There is moderate cardiomegaly
4).There is moderate pericholecystic edema at the gallbladder such as may be seen with cholecystitis.
5). There is aortobiiliac stent graft
6). There is mild left-sided renal cortical atrophy
7).There is moderate ascites in the pelvis
CT Scan: AP 06/25/23- IMPRESSION:
1. Advanced aortic atherosclerotic changes without aneurysmal dilation. Irregular mural thrombus along distal thoracic and abdominal aorta. Moderate stenosis of the infrarenal aorta.
2. High-grade stenosis of the proximal right common iliac artery. Moderate stenosis left common iliac artery. Left profunda femoral stenosis. Three-vessel runoff on the right and 2 vessel runoff on left.
3. Bilateral renal cortical scarring. Atrophic changes of the left kidney as compared with the right.
[facility] 04/09/23- CONCLUSIONS
1: Inferobasal akinesis with EF 54%
2: Single-vessel CAD (chronic total occlusion of the proximal RCA)
3. Recommend continued medical therapy with aspirin and high intensity statin
Echo 09/08/23:
Normal LV size with normal systolic function.
LVEF is 55% by Aguilar's method of discs..
RCA territory mild hypokinesis.
Mild concentric LVH.
Stage I diastolic dysfunction suggestive of abnormal relaxation.
Normal right ventricular size and function.
Mild mitral regurgitation.
Echo: 03/23/23- Normal biventricular size and systolic function without regional wall motion abnormality. Possible basal to mid inferior hypokinesis. Mild concentric left ventricular hypertrophy.
No significant valvular disease. Compared to previous echo 05/10/12, the possible basal inferior hypokinesis is new.
PFT's: 05/28/23- FVC was 2.06L or 58% predicted. FEV1 was 1.10L or 40% predicted. Ratio 53. Post FEV1 was 1.22L or 44% predicted, 11% change.
Lung volumes: TLC was 4.05L or 74% predicted. RV/TLC was 49%. Diffusion was 10.17 or 42% predicted. When adjusted for hemoglobin was unchanged.
Spirometry demonstrates severe obstruction. There was significant bronchodilator response in the FVC. Lung volumes demonstrate mild restriction. There is borderline air trapping. There is a moderate diffusion impairment.
Subjective Data
-
Date of Service:
Date of Service: October 05, 2023
Chief Complaint: Pulmonary Follow Up
Review of Systems
General: Fever (n)
Cardiopulmonary: Dyspnea, Cough (n) and Sputum Production (n)
GI: Abdominal Pain (n) and Nausea (n)
Objective Data
Data Reviewed
Vital Signs / I&O / Oxygen:
Vital Signs
Temp Pulse Resp BP Pulse Ox
97.5 F 83 16 146/86 95
10/05/23 04:16 10/05/23 07:31 10/05/23 07:31 10/05/23 04:52 10/05/23 07:31
Intake and Output
10/04/23 10/05/23 10/06/23
06:59 06:59 06:59
Intake Total 220 / 220 688 / 688
Output Total 1375 / 1375 1300 / 1300
Balance -1155 / -1155 -612 / -612
SaO2 [A/C] 93
SaO2 95
Nasal Cannula flow liters per 3
minute
Physical Exam
General: Respiratory Distress (trace on BPAP) and Comfortable
HEENT: Normocephalic, Anicteric, Moist Mucous Membranes, Thrush (n) and Other (BPAP FFM)
Cardiovascular: S1-S2, Regular Rhythm, Peripheral Edema (negative) and Calf Tenderness (n)
Respiratory: Wheeze (negative), Crackles (Bilateral (bases to midlung ramos bilaterally)), Rhonchi (negative), Stridor (n) and Other (Reduced breath sounds on R base)
GI: Soft, Distended (Mild), Non Tender and Normal Bowel Sounds
Neurology: Awake, Oriented and No Motor Deficits
Skin: Warm, Dry and Jaundice (negative)
Labs/Micro/Reports
Lab Data
10/05/23 04:50
10/05/23 04:50
Laboratory Results
10/05/23
04:50
PT 27.6 H
INR 2.58
[2023-10-05] MEDS: MIRALAX PO (09:13)
[2023-10-05] MEDS: MUCINEX PO (09:13)
[2023-10-05] MEDS: SENOKOT-S PO ×2 (09:14→20:06)
--- NOTE | 2023-10-05 09:15 | PTCARENOTE ---
Patient c/o of 8 sharp back pain this morning. Pt asked to be sat up more in bed and with repositioning, it helped for a short while. Patient then asking for pain medication. TT to and order for Oxycodone 5mg, see MAR. Assessment, care
and VS as charted.
--- NOTE | 2023-10-05 10:06 | W.PN.HOSP.TC ---
Today's Communication/Plan
-
lasix gtt
monitor UOP
Po steroids
chest US
oob/pt
Assessment / Plan
Assessment / Plan
63-year-old female with past medical history of PAD with recent aortoiliac stent, CAD, CKD IV, moyamoya syndrome, hypothyroidism, hyperlipidemia, hypertension, ovarian cancer, TIA, COPD, brain bypass x 3 came to the hospital with chest pain and
shortness of breath. EKG with new ST depressions. Initial troponin is 0.215 with a proBNP greater than 27,000, creatinine 2.0 (baseline). She was taken urgently to cardiac cath complicated by acute resp failure requiring intubation; shown to have
severely elevated filling pressures. No new CAD. She required intubation, admitted to ICU with [place]-Yovany catheter placed, IV Bumex gtt.
.
#Acute kidney injury on CKD stage IIIb
#Mild hyponatremia
-Baseline ~2. Did received contrast on admission. However, greater than 1 week at this point.
-creatinine at 4.5
-BUN severely elevated ?due to steroids
-Per cards, monitor clinically and no plan for repeat RHC.
-IV Lasix discontinued and started on Lasix infusion.
-syed to monitor urinary output. wt remains elevated.
-May require dialysis. Pt agreeable
-appreciate renal consult
#Acute hypoxemic respiratory failure secondary pulmonary edema requiring intubation mechanical ventilation, elevated filling pressures on the catheterization
#Hypertensive emergency with flash pulmonary edema
#Acute on chronic congestive heart failure with preserved ejection fraction
#Non-PA troponin elevation
-cardiac cath without significant CAD;+ elevated pressures
-required intubation in tender labor 09/20; s/p extubation on 09/21
-Bumex gtt stopped 09/23
-Lasix uptitrated to 60 mg twice daily to daily and subsequently now started on Lasix infusion
-[place]-Yovany catheter now out
-Per patient discussion with her primary neurologist who stated okay for blood pressure to be lowered further if needed and to be monitored neurologic
-continue aspirin/statin restarted
-Plan for of goal-directed medical therapy pending stabilization of creatinine probably as outpatient.
-CXR on 09/30 am-reviewed bilateral pleural effusion. Stable. Cardiomegaly is stable.
-Chest ultrasound to assess for pleural effusion.
#Acute COPD exacerbation
-Continue bronchodilators. Severe COPD recent PFTs.
-Not severely wheezing or bronchospastic. downtitration of steroids to 20mg q12h and switch to po steroids.
# Leukocytosis likely secondary to high-dose steroids
-Down titration of steroids to p.o. steroid taper. Afebrile. CBC in the morning
# Dyspnea likely multifactorial CHF and COPD
Plan as above
improving
exacerbated at times due to severe anxiety/panic attacks
BiPAP nightly and as needed
#moderate pericholecystic edema at the gallbladder
-AST/ALT elevated but could be due to congestion
-No severe RUQ pain-d/w with spouse who also agreed
-Abdominal ultrasound-Trace gallbladder sludge. Small gallbladder stone versus polyp. Mild gallbladder wall thickening. Negative sonographic Hurt's sign. No findings to suggest biliary tract dilatation.
-Continue to monitor for diet tolerance. Monitor for diet tolerance
Hypokalemia
-repleted
# Chronic leukocytosis worsening in setting of sterodis
Fever 09/21, likely 2/2 aspiration pneumonitis
-afebrile overnight and does not appear infected since
# Normocytic anemia
-No active bleeding
-Continue to trend, stable
-iron studies - anemia inflammation
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
-bilaterally s/p diagnostic arteriogram, AFX stent graft placement, balloon angioplasty 09/01/23
-INTEGRATION ANALYST Eliquis resumed
#Livedo reticularis
-vascular following; no acute issues from vascular standpoint
#essential HTN
-started on toprol.
#anxiety/panic attacks
-duloxetine continued
-cont xanax
#hypothyroidism
-levothyroxine continued
# ex Smoker
#Mixed hyperlipidemia
-statin continued
#Moyamoya syndrome, 3 surgical interventions
Per patient discussion with her primary neurologist who stated okay for blood pressure to be lowered further if needed and to be monitored neurologically.
#DVT prophylaxis - Eliquis
#CODE status
-full code
d/w with spouse at bedside in details for prolonged period of time and explained prognosis moving forward
Discussed with nephrology
Anticipated Discharge: > 48 hours
Subjective/Interval History
-
Date of Service: October 05, 2023
Patient remains with poor appetite
Shortness of breath with rest
Patient agreed to undergo HD if offered.
Remains on oxygen
Was complaining of back pain
Objective Data
-
Labs:
Laboratory Results
10/05/23
04:50
WBC 18.6 H
Hgb 8.7 L
Hct 26.4 L
Plt Count 425 H
PT 27.6 H
INR 2.58
Sodium 133 L
Potassium 3.8
Chloride 86 L
Carbon Dioxide 24
BUN 152 H*
Creatinine 4.5 H*
Glucose 221 H
Calcium 8.5
Vital Signs:
Vital Signs
Temp Pulse Resp BP Pulse Ox
97.6 F 67 17 118/107 96
10/05/23 07:25 10/05/23 09:00 10/05/23 09:00 10/05/23 09:00 10/05/23 09:00
I&O
10/04/23 10/05/23 10/06/23
06:59 06:59 06:59
Intake Total 220 / 220 688 / 688
Output Total 1375 / 1375 1300 / 1300
Balance -1155 / -1155 -612 / -612
Physical Exam
-
General: No Apparent Distress and Comfortable; Negative Respiratory Distress
HEENT: Normocephalic, Atraumatic, Moist Mucous Membranes and Oxygen
Respiratory: Non Labored Respirations; Negative Accessory Resp Muscle Use
Cardiac: Regular Rhythm and S1/S2
GI: Soft, Nontender, Nondistended and Normal Bowel Sounds
Musculoskeletal: No Edema
Skin: Warm and Dry; Negative Rash
Neuro: Awake, AO x 3 and No Motor Deficits
Psych: Calm
Data Reviewed
-
Total Time Spent with Patient (in minutes): 55
--- NOTE | 2023-10-05 10:22 | W.PN.CD ---
Addendum entered and electronically signed by Janie Martinez MD 10/05/23 11:29:
I saw and examined the patient.
The FACILITIES SPECIALIST's note was reviewed and I agree with the note.
Comment: She is still sob, no cp just feels like it is difficult to breath. on exam, increased respiratory effort, bibasilar rales. rrr. Alert and oriented. She has rising bun/cr despire furosemide gtt. In discussion about HD. I raised concern
with Vascular team regarding DOAC with elevated BUN and Cr but they wish to continue.
GDMT limited by bp.
will follow
Original Note:
Today's Communication / Plan
-
Diuresis per Nephrology
Impression / Plan
-
Background: 63 y/o female vasculopath with a history of CAD (RCA BUN ICER), CKD, COPD, severe PAD with recent aortoiliac revascularization for potential atheroembolism and [place] DEX s/p bilateral carotid bypass admitted with decompensating HFpEF and
chest pressure, prompting cardiac catheterization, at which time she went into flash pulmonary edema from hypertensive crisis, requiring intubation and aggressive BP management.
SUAD on CKD: severe
-Based on prior notes it was suspected too rapid diuresis and cardiorenal syndrome
-At 63.5 kg she felt well but but then apparently had some more heart failure-like symptoms when we increased to 64.5 kg
-Creat 4.5, BUN 152
-Will defer to nephrology regarding worsening renal function and any future needs for dialysis, she is agreeable to HD if recommended
HFmrEF, acute on chronic
-Dry weight less than 64.5 and likely close to 63.5 kg. She is 64.1 kg today. Crackles to B/L bases, requiring O2, mildly increased WOB which she reports is worse than yesterday
-LVEDP = 25 mmHg, PCWP = 25 mmHg (also unclear the exact accuracy of weight at the time of catheterization, cath report states 68 kg and 65.7 that evening by nursing)
-Now on HF BB
-GDMT currently limited due to renal function
Small B/L pleural effusions, diuresis per Nephrology
Ascites, moderate based on CT 09/30/2022
CAD
-Chronic RCA occlusion, cath this admit stable.
-Chest pain free
PAD/aortic atherosclerosis
-Recent infrarenal aorta/iliac revascularization for potentially atheroembolism (AFX 25-90/16-30, 28-95 proximal extension).
-CTA post procedure comments on residual mural thrombus in descending thoracic aorta
-Dr. Brooks saw in ER and reports vascular issues stable.
-Apixaban restarted on 09/25/2023
HTN, goal BP includes consideration of her complex cerebral vascular disease
COPD, on steroids
Moyamoya disease, prior carotid bypass.
-Previously recommended SBP of 140-160 to maintain cerebral perfusion. However, patient reports that neurologist said okay to bring down BP's a bit (slowly) and do neuro checks.
Subjective:
Patient looks tired. Unable to sleep to due restlessness.
Mildly increased WOB
Physical Exam
Vital Signs/Labs
Vital Signs
Temp Pulse Resp BP Pulse Ox
97.6 F 67 17 118/107 96
10/05/23 07:25 10/05/23 09:00 10/05/23 09:00 10/05/23 09:00 10/05/23 09:00
10/04/23 10/05/23 10/06/23
06:59 06:59 06:59
Actual Weight 64.7 kg 64.1 kg
10/05/23 04:50
10/05/23 04:50
PT 27.6 Sec (11.4-14.6) H 10/05/23 04:50
INR 2.58 10/05/23 04:50
APTT 49.4 Sec (23.4-35.0) H 09/26/23 04:26
Magnesium 1.8 mg/dl (1.6-2.3) 09/28/23 05:32
Triglycerides 143 mg/dl (10-149) 09/22/23 03:57
LDL Cholesterol, Calc 46 mg/dl 09/22/23 03:57
VLDL Cholesterol, Calc 28 mg/dl (0-30) 09/22/23 03:57
HDL Cholesterol 44 mg/dl 09/22/23 03:57
09/21/23 09/29/23
14:07 04:09
Fem-J-Fyzzfejycle Pept > 78352 > 72094
Physical Exam
Constitutional: No acute distress and Comfortable
EENT: Anicteric and Moist mucous membranes
Cardiovascular: Rhythm & rate is regular, Pedal edema is absent, S1S2 is normal and Murmur/rub/gallop absent
Respiratory: Respiratory effort normal and Lungs clear to auscul.
GI: Soft, Distention absent, Flat, Non tender and Normal bowel sounds
Neuro/Psych: AO x 3
Other: Skin (warm and dry)
Data Reviewed
-
Date of Service: October 05, 2023
Labs: Labs Reviewed by me
Old Records: Reviewed
[2023-10-05] MEDS: DELTASONE 40 MG PO (11:00)
--- NOTE | 2023-10-05 12:14 | W.PN.NEPH.PH ---
Today's Communication / Plan
-
HD
Assessment/Plan
-
Impression:
Chest pain shortness of breath: Congestive heart failure decompensation/non-ST elevation UT
Chronic kidney disease stage IV with baseline creatinine of 2
Hypertension urgency
Aorta iliac revascularization following potential atheroembolism August 2023
COPD
Moyamoya disease/complex peripheral arterial disease
Intubation
echo EF 40-45%, WMA
Plan:
d/w patient and
they will accept dialysis
tunnelled HD CVC today
HD today if time allows
can stop lasix gtt once HD starts
also d/w pt and son issues of BP variation with dialysis, especially if more UF is required (since goal SBP>140 with carotid bypass)
I told them to consider home HD as well
-
-
Date of Service: October 05, 2023
CC / HPI / ROS
-
Chief Complaint:
CKD
History of Present Illness:
SUAD/Cr up to 4.5
BUN up to 152
Na low still 133
remains on lasix gtt 40mg/hr with little change in weight
Review of Systems:
laying flat, but on supplemental O2
overall feels worse
no CP
Labs
-
Labs:
WBC 18.6 10^3/uL (4.8-10.8) H 10/05/23 04:50
RBC 2.82 10^6/uL (4.20-5.40) L 10/05/23 04:50
Hgb 8.7 g/dL (12.0-16.0) L 10/05/23 04:50
Hct 26.4 % (37.0-47.0) L 10/05/23 04:50
Plt Count 425 10^3/uL (130-400) H 10/05/23 04:50
Sodium 133 mmol/L (135-145) L 10/05/23 04:50
Potassium 3.8 mmol/L (3.5-5.1) 10/05/23 04:50
Chloride 86 mmol/L (98-107) L 10/05/23 04:50
Carbon Dioxide 24 mmol/L (22-30) 10/05/23 04:50
BUN 152 mg/dl (7-17) H* 10/05/23 04:50
Creatinine 4.5 mg/dL (0.6-1.0) H* 10/05/23 04:50
eGFR 10.41 10/05/23 04:50
Glucose 221 mg/dl (70-99) H 10/05/23 04:50
Calcium 8.5 mg/dl (8.4-10.2) 10/05/23 04:50
Phosphorus 5.0 mg/dl (2.5-4.5) H 09/21/23 19:10
Znc-F-Sucjqmxprrk Pept > 49264 pg/ml 09/29/23 04:09
Albumin 4.0 g/dl (3.5-5.0) 10/03/23 05:45
Physical Exam
-
Vital Signs:
Vital Signs
Temp Pulse Resp BP Pulse Ox
97.6 F 67 17 118/107 96
10/05/23 07:25 10/05/23 09:00 10/05/23 09:00 10/05/23 09:00 10/05/23 09:00
Cardiovascular:: Regular rate and rhythm
Respiratory:: Bilateral: Coarse
Lung Excursion:: Normal
Abdomen:: Nontender and Soft
Bowel Sounds:: Normal
Extremity Edema:: +1: Bilateral:
--- NOTE | 2023-10-05 14:25 | PTCARENOTE ---
Patient sent to [facility] for HD cath
[2023-10-05] MEDS: ANCEF 10 IV (14:47)
[2023-10-05] MEDS: HEPARIN 500 UNITS IV ×2 (16:40→17:40)
--- NOTE | 2023-10-05 16:56 | PTCARENOTE ---
Patient returned from [facility] with R tunneled HD cath. Melisa at bedside for dialysis.
[2023-10-05] MEDS: RETACRIT 4000 UNITS IV (17:00)
[2023-10-05] MEDS: MANNITOL 25% 12.5 GRAMS IV ×2 (17:00→18:04)
--- NOTE | 2023-10-05 17:00 | W.PN.NEPH.HD ---
Assessment
-
Seen on HD. no complaints. VSS, access tunnelled HD CVC.
Progress Note - Hemodialysis
-
Date of Service: October 05, 2023
Duration: 30 minutes and 2 hours
Potassium Bath: 3
Calcium Bath: 2.5
Opti-Dialyzer: 160
Ultrafiltration: Other (1kg)
Blood Flow: 250
Dialysate Flow: 600
Heparin: 500x2
EPO: 4000 units
--- NOTE | 2023-10-05 17:27 | CM ---
Patient with Dx SUAD on CKD 3B, Acute hypoxemic respiratory failure s/p extubation on 09/21, pulmonary edema, CHF, acute COPD exacerbation. O2 3L. Receiving IV Lasix. Tunneled cath placed today - first HD today. PT & OT Re-evals pending.
Messages with Dr Mendez; ok to refer to [facility]. Dx is ESRD.
Spoke with patient's Lambert; he agrees to a referral to [facility]. His preferred HD Schedule is MWF 10am. He is retired and will transport his to dialysis. The patient would like to return home at d/c - he is
aware therapy re-evals are pending.
Spoke with [facility]; initiated HD referral. Clinical sent via [facility]. Will need to send Hepatitis B labs once results are reported, plus flow sheets.
Plan fax Hepatitis B labs once available, plus HD flow sheets to [facility].
Plan follow up with PT/OT for therapy needs.
Plan home with [facility], possibly with VN.
[2023-10-05] MEDS: TOPROL XL PO (18:16)
[2023-10-05] MEDS: HEPARIN 3900 UNITS INTRACATH (19:09)
[2023-10-05 20:32] LABS: Hepatitis B Surface Antigen Negative (Negative)
[2023-10-05 20:51] LABS: Hepatitis B Surface Antibody Negative; Hepatitis C Antibody Negative (Negative)
[2023-10-05 20:52] LABS: Hepatitis B Core Ab, Total Negative (Negative)
[2023-10-05] MEDS: MELATONIN 5 MG PO (21:10)
[2023-10-05] MEDS: LIDOCAINE 4% PATCH 1 PATCH TOPICAL (21:10)
[2023-10-05] MEDS: CYMBALTA DELAYED RELEASE 30 MG PO (21:10)
[2023-10-05] MEDS: BENADRYL 25 MG IV (21:29)
[2023-10-06] VITALS (24 sets, daily range): BP systolic 115–162; BP diastolic 64–97; PULSE 2–70; BMI 21.5
[2023-10-06] MEDS: TYLENOL PO (04:59)
[2023-10-06] MEDS: SYNTHROID PO (04:59)
[2023-10-06] MEDS: COMPAZINE 5 MG IV (05:17)
--- NOTE | 2023-10-06 06:03 | PTCARENOTE ---
This AM Pt having more sanguineous drainage from new HD site. IV team at bed side to help reinforce dressing. Pt also had complaints of nauseas, barretth LINEMAN made aware. Compazine ordered. Reassessment pt states the medication is helping.
[2023-10-06 06:08] LABS: Blood Urea Nitrogen 87 mg/dl (7-17); Carbon Dioxide 26 mmol/L (22-30); Chloride 95 mmol/L (98-107); Estimated Creatinine Clearance 19 ml/min; Glucose 192 mg/dl (70-99); Potassium 4.4 mmol/L (3.5-5.1); Sodium 137 mmol/L (135-145); eGFR 16.94
[2023-10-06] MEDS: SYNTHROID 100 MCG PO (07:33)
[2023-10-06] MEDS: VITAMIN D3 (cholecalciferol) 50 MCG PO (07:33)
[2023-10-06] MEDS: LOW STRENGTH ASPIRIN 81 MG PO (07:33)
[2023-10-06] MEDS: DELTASONE PO ×2 (07:33→07:40)
[2023-10-06] MEDS: BUSPAR PO ×2 (07:33→07:41)
[2023-10-06] MEDS: ELIQUIS PO ×3 (07:33→21:07)
[2023-10-06] MEDS: SENOKOT-S PO ×2 (07:33→09:46)
[2023-10-06] MEDS: MIRALAX PO (07:34)
[2023-10-06] MEDS: XOPENEX 0.63 MG INHALANT SOLUTION 0.630000000000000004 MG INH ×3 (07:43→20:28)
[2023-10-06] MEDS: PULMICORT 0.5 MG INH ×2 (07:43→20:28)
--- NOTE | 2023-10-06 08:13 | PTCARENOTE ---
Pt rec'd from steward/stewardess night RN, very drowsy and difficult to maintain wakefulness, pt only able to take synthroid and chewable asa this am, then states 'that's all.' Pt cannot keep eyes open, only able to state name and part of birthday in fragmented
statements. Pt pleasant and cooperative, despite lethargy. Right neck tunneled HD cath dressing noted to be oozing again as it had been overnight per report, VAT RN redressed and reinforced it again this am. Pt is for HD at noon today. Will continue
to closely monitor.
--- NOTE | 2023-10-06 10:41 | W.PN.CD ---
Today's Communication / Plan
-
-Patient now agreeable to HD; first session was yesterday--Nephrology managing.
-Volume management via HD.
-Continue Toprol-XL; further GDMT limited by CKD.
-Patient appears to be relatively stable from a cardiac standpoint; no further recommendations at this time.
-Outpatient follow-up with Cardiology.
Impression / Plan
-
Background: 63 y/o female vasculopath with a history of CAD (RCA HALAL BUTCHER), CKD, COPD (quit smoking 2 months ago), severe PAD with recent aortoiliac revascularization for potential atheroembolism, and Arroy[place] Arroyo DEX s/p bilateral carotid bypass admitted
with decompensating HFpEF and chest pressure, prompting cardiac catheterization, at which time she went into flash pulmonary edema from hypertensive crisis, requiring intubation and aggressive BP management.
SUAD on CKD: severe
-Based on prior notes it was suspected too rapid diuresis and cardiorenal syndrome
-At 63.5 kg she felt well but but then apparently had some more heart failure-like symptoms when we increased to 64.5 kg
-Patient now agreeable to HD; first session was yesterday--Nephrology managing.
HFmrEF, acute on chronic
-Dry weight less than 64.5 and likely close to 63.5 kg. She is 64.1 kg today. Crackles to B/L bases, requiring O2, mildly increased WOB which she reports is worse than yesterday
-LVEDP = 25 mmHg, PCWP = 25 mmHg (also unclear the exact accuracy of weight at the time of catheterization, cath report states 68 kg and 65.7 that evening by nursing)
-Volume management via HD.
-Continue Toprol-XL; further GDMT limited by CKD.
Small B/L pleural effusions, diuresis per Nephrology
Ascites, moderate based on CT 09/30/2022
CAD
-Chronic RCA occlusion, cath this admit stable.
-Chest pain free
PAD/aortic atherosclerosis
-Recent infrarenal aorta/iliac revascularization for potentially atheroembolism (AFX 25-90/16-30, 28-95 proximal extension).
-CTA post procedure comments on residual mural thrombus in descending thoracic aorta
-Dr. Brooks saw in ER and reports vascular issues stable.
-Apixaban restarted on 09/25/2023
HTN, goal BP includes consideration of her complex cerebral vascular disease
COPD, on steroids
Moyamoya disease, prior carotid bypass.
-Previously recommended SBP of 140-160 to maintain cerebral perfusion. However, patient reports that neurologist said okay to bring down BP's a bit (slowly) and do neuro checks.
Subjective:
No major events overnight. No cardiac complaints this a.m.
Physical Exam
Vital Signs/Labs
Vital Signs
Temp Pulse Resp BP Pulse Ox
97.5 F 79 17 132/81 96
10/06/23 07:40 10/06/23 08:00 10/06/23 08:00 10/06/23 08:00 10/06/23 08:00
10/05/23 10/06/23 10/07/23
06:59 06:59 06:59
Actual Weight 64.1 kg 62.1 kg
10/05/23 04:50
10/06/23 05:11
PT 27.6 Sec (11.4-14.6) H 10/05/23 04:50
INR 2.58 10/05/23 04:50
APTT 49.4 Sec (23.4-35.0) H 09/26/23 04:26
Magnesium 1.8 mg/dl (1.6-2.3) 09/28/23 05:32
Triglycerides 143 mg/dl (10-149) 09/22/23 03:57
LDL Cholesterol, Calc 46 mg/dl 09/22/23 03:57
VLDL Cholesterol, Calc 28 mg/dl (0-30) 09/22/23 03:57
HDL Cholesterol 44 mg/dl 06/11/24 03:57
09/21/23 09/29/23
14:07 04:09
[id number] Pept > 46442 > 94812
Physical Exam
Constitutional: No acute distress and Comfortable
EENT: Anicteric
Cardiovascular: Rhythm & rate is regular, Pedal edema is absent, Systolic murmur absent and S1S2 is normal
Respiratory: Respiratory effort normal and Lungs clear to auscul.
GI: Soft
Neuro/Psych: AO x 3
Other: Skin (Warm, dry)
Data Reviewed
-
Date of Service: October 06, 2023
EKG: Tracing Personally Visualized and interpreted (Telemetry: Sinus rhythm)
Medical Tests (PFT, Pathology etc): Discussed with Patient and Discussed with Family (, Ronnell, at bedside)
Labs: Labs Reviewed by me
--- NOTE | 2023-10-06 10:45 | W.PN.PUL3 ---
Today's Communication / Plan
-
Continue nebulizer therapy
Encourage incentive spirometry
Oxygen supplementation
Will follow after few days on dialysis. Hopefully there will be some improvement
Physical therapy as able
Assessment
-
Impression:
Acute hypoxemic respiratory failure due to pulmonary edema requiring intubation and mechanical ventilation-elevated filling pressures on right heart catheterization 09/21/2023
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
Extubated 09/22/2023
Acute on chronic heart failure with preserved ejection fraction/non-ST elevation myocardial infarction? Type II
Chest x-ray 09/21/2023: Reviewed showed mild cardiomegaly. Mild pulmonary vascular congestion. Small right pleural effusion.
Hypertensive urgency
Chronic anemia
Chronic leukocytosis
SUAD - DDx includes hypoperfusion from cardiorenal syndrome vs ATN from over-diuresis
Conditions present prior admission:
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
COPD
Moderate obstruction with positive/significant bronchodilator response, follows Dr White
Chronic cough noted
Upper airway cough syndrome
Moderate cigarette smoker (10-19 cigs/day) with longstanding tobacco abuse with [id number] history
TIA, recurrent
Ovarian cancer diagnosed age (no chemo, RT)
Hypertension
Hypercholesterolemia
Hypothyroidism
Moyamoya disease
CAD with occluded RCA
CKD 3/4
Vulva cancer (no RT, chemotherapy)
PAD
Appendectomy 02/1992
Hysterectomy, BSO, omentectomy 02/1992
Partial vulvectomy 2009
Brain bypass x3
Appendectomy
Plan:
No overnight events
Remains on supplemental oxygen
Started on dialysis 10/04/2024.
Continues to report exertional dyspnea.
-
Unfortunately, with aggressive diuresis worsening renal function.
Hypoxemic respiratory failure: Improved on low rate supplemental oxygen now.
Pulmonary following regarding underlying severe COPD. Was not on therapy prior to admission.
-
Continue BPAP as needed during daytime and also every night for decompensated HF
Not on home O2 or PAP therapy by .
Has adapted relatively well to BPAP as inpatient, continue while in hospital.
Chest x-ray 10/04/2023:Pulmonary vascularity borderline prominent; Mild cardiomegaly; Small bilateral pleural effusions.
CT chest 10/01/2023: No significant emphysema or pulmonary fibrosis. Bibasilar compressive atelectasis and small pleural effusions.
-
COPD without bronchospasm. No evidence for acute exacerbation.
No bronchospasm has been noted during this admission.
Severe COPD via PFT from September 14, 2023 with post BD FEV1 1.36 L / 49%. Very severe gas exchange capacity defect with DLCO: 34% (DLco/VA: 45%)
Continue Pulmicort twice a day
Continue Xopenex 3 times a day
DuoNebs as needed
Eventual outpatient follow-up with Dr. Choudhury
Encourage incentive spirometry
Steroids started on 09/27 by cardiology --> now has been transition to prednisone. Continue taper to off.
-
Acute on chronic heart failure with reduced ejection fraction
Status post right heart catheterization 09/21/2023:
1. Right dominant circulation with chronic total occlusion of the proximal RCA, collateralized by the left system.
3. Hypertensive emergency.
4. Acute congestive heart failure.
5. Severely elevated filling pressures (LVEDP = 25 mmHg, PCWP = 25 mmHg at 68.0 kg).
6. Severe vasculopathy including moyamoya status post carotid artery bypass and recent aortoiliac angioplasty and stent placement.
-
Echocardiogram: 09/22/2023 Mildly reduced left ventricular ejection fraction. Inferior wall and apical hypokinesis. LVEF 40%. No significant valvular disease. Normal right atrium. Normal right ventricle.
Cardiology continues to follow.
Lasix drip ongoing discontinued after dialysis.
Acute kidney injury, worsening. Now started on dialysis 10/05/2023
Follow electrolytes.
-
No evidence for infection. Has not required antibiotics.
-
Glycemic control: Insulin as needed. Particularly on systemic steroids.
Target blood sugar 140-180
-
Anemia noted: No evidence for bleeding.
Back on oral anticoagulants with apixaban since 09/25/2023
Continue to monitor hemoglobin.
Anemia contributing to shortness of breath as well.
Physical therapy as tolerated
Occupational Therapy as tolerated
DNR status
[facility] discussion: Dr Choudhury discussed goals of care with the patient and mentioned hospice. She is not currently ready for hospice. at bedside during that conversation. They want to continue full medical management for now and they still
are not sure about dialysis if it comes to that. For now we will continue with aggressive diuresis and trending her labs.
Pulmonary follow up at [facility] on 11/03/[address] Ayers updated 10/05/2023 at the bedside.
-
Will reevaluate in the next 48 hours, hopefully some improvement postdialysis

Diagnostic Data
Chest X-ray: 09/29/2023-Pulmonary vascularity borderline prominent; mild cardiomegaly; Small bilateral pleural effusions.
Chest X-ray: 09/07/2023-Small right and trace left pleural effusions with associated probable atelectasis, slightly progressed.
Chest X-Ray: 09/01/23- No acute cardiopulmonary process.
CT Chest/Abd/Pelvis 10/01/2023:
1).There are small bilateral pleural effusions, increased in volume when compared with the prior study and associated with compressive atelectasis at both lung bases
2). There is a 2 cm pleural-based area of parenchymal airspace disease in the anteromedial aspect of the lingula, new when compared with the prior study which may be atelectasis or minimal pneumonia
3). There is moderate cardiomegaly
4).There is moderate pericholecystic edema at the gallbladder such as may be seen with cholecystitis.
5). There is aortobiiliac stent graft
6). There is mild left-sided renal cortical atrophy
7).There is moderate ascites in the pelvis
CT Scan: AP 06/25/23- IMPRESSION:
1. Advanced aortic atherosclerotic changes without aneurysmal dilation. Irregular mural thrombus along distal thoracic and abdominal aorta. Moderate stenosis of the infrarenal aorta.
2. High-grade stenosis of the proximal right common iliac artery. Moderate stenosis left common iliac artery. Left profunda femoral stenosis. Three-vessel runoff on the right and 2 vessel runoff on left.
3. Bilateral renal cortical scarring. Atrophic changes of the left kidney as compared with the right.
[facility] 04/09/23- CONCLUSIONS
1: Inferobasal akinesis with EF 54%
2: Single-vessel CAD (chronic total occlusion of the proximal RCA)
3. Recommend continued medical therapy with aspirin and high intensity statin
Echo 09/08/23:
Normal LV size with normal systolic function.
LVEF is 55% by Aguilar's method of discs..
RCA territory mild hypokinesis.
Mild concentric LVH.
Stage I diastolic dysfunction suggestive of abnormal relaxation.
Normal right ventricular size and function.
Mild mitral regurgitation.
Echo: 03/23/23- Normal biventricular size and systolic function without regional wall motion abnormality. Possible basal to mid inferior hypokinesis. Mild concentric left ventricular hypertrophy.
No significant valvular disease. Compared to previous echo 05/10/12, the possible basal inferior hypokinesis is new.
PFT's: 05/28/23- FVC was 2.06L or 58% predicted. FEV1 was 1.10L or 40% predicted. Ratio 53. Post FEV1 was 1.22L or 44% predicted, 11% change.
Lung volumes: TLC was 4.05L or 74% predicted. RV/TLC was 49%. Diffusion was 10.17 or 42% predicted. When adjusted for hemoglobin was unchanged.
Spirometry demonstrates severe obstruction. There was significant bronchodilator response in the FVC. Lung volumes demonstrate mild restriction. There is borderline air trapping. There is a moderate diffusion impairment.
Subjective Data
-
Date of Service:
Date of Service: October 06, 2023
Chief Complaint: Pulmonary Follow Up
Subjective:
Started dialysis
Remains on supplemental oxygen
Denies any wheezing
Denies phlegm production.
Review of Systems
General: Fever (n)
Cardiopulmonary: Dyspnea, Dyspnea on Exertion and Cough
GI: Abdominal Pain (n) and Nausea (n)
Objective Data
Data Reviewed
Vital Signs / I&O / Oxygen:
Vital Signs
Temp Pulse Resp BP Pulse Ox
97.5 F 79 17 132/81 96
10/06/23 07:40 10/06/23 08:00 10/06/23 08:00 10/06/23 08:00 10/06/23 08:00
Intake and Output
10/05/23 10/06/23 10/07/23
06:59 06:59 06:59
Intake Total 688 / 688 170 / 170
Output Total 1300 / 1300 1325 / 1325
Balance -612 / -612 -1155 / -1155
SaO2 [A/C] 93
SaO2 96
Nasal Cannula flow liters per 5
minute
Physical Exam
General: Respiratory Distress (trace on BPAP) and Other (Able to speak in full sentences arrest)
HEENT: Normocephalic, Anicteric, Moist Mucous Membranes, Thrush (n) and Other (BPAP FFM)
Cardiovascular: S1-S2, Regular Rhythm and Peripheral Edema (negative)
Respiratory: Wheeze (negative), Crackles (Bilateral (bases to midlung ramos bilaterally)), Rhonchi (negative), Stridor (n) and Other (Reduced breath sounds on R base)
GI: Soft, Distended (Mild), Non Tender and Normal Bowel Sounds
Neurology: Awake, Oriented, AO x 3 and No Motor Deficits
Skin: Warm, Dry and Jaundice (negative)
Labs/Micro/Reports
Lab Data
10/05/23 04:50
10/06/23 05:11
--- NOTE | 2023-10-06 11:05 | PTCARENOTE ---
Plan discussed with attending Dr. Nuñez, all sedating medications dc'd, pt for HD this afternoon and US of chest today, at bedside, emotional support provided.
--- NOTE | 2023-10-06 11:54 | W.PN.HOSP.TC ---
Addendum entered and electronically signed by Tuan Nuñez MD 10/06/23 12:08:
CODE STATUS DNR.
Original Note:
Today's Communication/Plan
-
DC sedative meds for now
wean o2
HD today
oob
Assessment / Plan
Assessment / Plan
63-year-old female with past medical history of PAD with recent aortoiliac stent, CAD, CKD IV, moyamoya syndrome, hypothyroidism, hyperlipidemia, hypertension, ovarian cancer, TIA, COPD, brain bypass x 3 came to the hospital with chest pain and
shortness of breath. EKG with new ST depressions. Initial troponin is 0.215 with a proBNP greater than 27,000, creatinine 2.0 (baseline). She was taken urgently to cardiac cath complicated by acute resp failure requiring intubation; shown to have
severely elevated filling pressures. No new CAD. She required intubation, admitted to ICU with [place]-Yovany catheter placed, IV Bumex gtt.
.
#Acute kidney injury on CKD stage IIIb
#Mild hyponatremia
-Baseline ~2. Did received contrast on admission. However, greater than 1 week at this point.
-creatinine at 4.5
-BUN severely elevated ?due to steroids
-Per cards, monitor clinically and no plan for repeat RHC.
-IV Lasix discontinued and started on Lasix infusion.
-syed to monitor urinary output. wt remains elevated.
-s/p HD catheter placement on 10/04 and started on HD subsequently afterwards.
-2nd HD session today.
-appreciate renal consult
#Acute hypoxemic respiratory failure secondary pulmonary edema requiring intubation mechanical ventilation, elevated filling pressures on the catheterization
#Hypertensive emergency with flash pulmonary edema
#Acute on chronic congestive heart failure with preserved ejection fraction
#Non-[place] troponin elevation
-cardiac cath without significant CAD;+ elevated pressures
-required intubation in bundle tier and labeler 09/20; s/p extubation on 09/21
-Bumex gtt stopped 09/23
-Lasix uptitrated to 60 mg twice daily to daily and subsequently now started on Lasix infusion
-[place]-Yovany catheter now out
-Per patient discussion with her primary neurologist who stated okay for blood pressure to be lowered further if needed and to be monitored neurologic
-continue aspirin/statin restarted
-Plan for of goal-directed medical therapy pending stabilization of creatinine probably as outpatient.
-CXR on 09/30 am-reviewed bilateral pleural effusion. Stable. Cardiomegaly is stable.
-Chest ultrasound to assess for pleural effusion.
#Toxic metabolic encephalopathy likely secondary to uremia versus polypharmacy
DC Benadryl, BuSpar, Xanax and melatonin
Monitor mentation
Does open eyes and speaks few sentences. No focal neurological deficit noted was following commands to some extent. Moving all 4 extremities
Hopefully with HD mentation continues to improve
#Suspscted mild Acute COPD exacerbation
-Continue bronchodilators. Severe COPD recent PFTs.
-Not severely wheezing or bronchospastic. downtitration of steroids to 20mg q12h and switch to po steroids.
# Leukocytosis likely secondary to high-dose steroids
-Down titration of steroids to p.o. steroid taper. Afebrile. CBC in the morning
# Dyspnea likely multifactorial CHF and COPD
Plan as above
improving
exacerbated at times due to severe anxiety/panic attacks
BiPAP nightly and as needed
#moderate pericholecystic edema at the gallbladder
-AST/ALT elevated but could be due to congestion
-No severe RUQ pain-d/w with spouse who also agreed
-Abdominal ultrasound-Trace gallbladder sludge. Small gallbladder stone versus polyp. Mild gallbladder wall thickening. Negative sonographic Hurt's sign. No findings to suggest biliary tract dilatation.
-Continue to monitor for diet tolerance. Monitor for diet tolerance
Hypokalemia
-repleted
# Chronic leukocytosis worsening in setting of sterodis
Fever 09/21, likely 2/2 aspiration pneumonitis
-afebrile overnight and does not appear infected since
# Normocytic anemia
-No active bleeding
-Continue to trend, stable
-iron studies - anemia inflammation
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
-bilaterally s/p diagnostic arteriogram, AFX stent graft placement, balloon angioplasty 09/01/23
-[employer] Eliquis resumed
#Livedo reticularis
-vascular following; no acute issues from vascular standpoint
#essential HTN
-started on toprol.
#anxiety/panic attacks
-hold meds for now
#hypothyroidism
-levothyroxine continued
# ex Smoker
#Mixed hyperlipidemia
-statin continued
#Moyamoya syndrome, 3 surgical interventions
Per patient discussion with her primary neurologist who stated okay for blood pressure to be lowered further if needed and to be monitored neurologically.
#DVT prophylaxis - Eliquis
#CODE status
-full code
d/w with spouse at bedside in details for prolonged period of time and explained prognosis moving forward
d/w with pulm
Anticipated Discharge: > 48 hours
Subjective/Interval History
-
Date of Service: October 06, 2023
Overnight complaint of pruritus and received IV Benadryl
This morning patient severely lethargic and not as talkative and following commands
Objective Data
-
Labs:
Laboratory Results
10/06/23
05:11
Sodium 137
Potassium 4.4
Chloride 95 L
Carbon Dioxide 26
BUN 87 H
Creatinine 3.0 H
Glucose 192 H
Calcium 9.0
Vital Signs:
Vital Signs
Temp Pulse Resp BP Pulse Ox
97.5 F 79 17 132/81 96
10/06/23 07:40 10/06/23 08:00 10/06/23 08:00 10/06/23 08:00 10/06/23 08:00
I&O
10/05/23 10/06/23 10/07/23
06:59 06:59 06:59
Intake Total 688 / 688 170 / 170
Output Total 1300 / 1300 1325 / 1325
Balance -612 / -612 -1155 / -1155
Physical Exam
-
General: No Apparent Distress and Comfortable; Negative Respiratory Distress
HEENT: Normocephalic, Atraumatic, Moist Mucous Membranes and Oxygen
Respiratory: Non Labored Respirations; Negative Accessory Resp Muscle Use
Cardiac: Regular Rhythm and S1/S2
GI: Soft, Nontender, Nondistended and Normal Bowel Sounds
Musculoskeletal: No Edema
Skin: Warm and Dry; Negative Rash
Neuro: Awake
Psych: Calm
Data Reviewed
-
Total Time Spent with Patient (in minutes): 55
--- NOTE | 2023-10-06 12:44 | PTCARENOTE ---
Addendum entered by Anca Montemayor RN 10/06/23 13:04:
Dr. Schneider will come see patient.
Original Note:
Pt's tunneled HD cath dressing saturated again (has required 2 dressing changes today already) Dr. Nuñez notified, instructed this RN to notify IR as well, TT sent to both providers, awaiting orders at this time.
--- NOTE | 2023-10-06 15:01 | CM ---
Addendum entered by Lisa Stroud 10/06/23 15:13:
Call for [facility]
Requested clinicals be faxed directly to her including serology
Faxed to [phone]
Original Note:
CM reviewed chart- remains in IMU and ADC >48 hours
Pt started on HD 10/04
Clinicals packet and referral form faxed to [facility] [phone]
Discussion with OT- pt quite weak
Awaiting PT eval and recommendations
May need SNF consider if too weak to go home
CM will continue to follow for dc planning
Discharge Disposition- home with new outpt HD vs SNF?
--- NOTE | 2023-10-06 15:36 | PN.IRAD.UPD ---
Update Note - IRAD
- -
Redressed tunneled HD catheter with a quickclot and tegaderm. It doesn't look to be actively bleeding.
Jace Valero RT(R)()
[2023-10-06] MEDS: HEPARIN 500 UNITS IV ×2 (17:05→18:05)
[2023-10-06] MEDS: MANNITOL 25% 12.5 GRAMS IV ×2 (17:20→18:31)
--- NOTE | 2023-10-06 17:30 | W.PN.NEPH.HD ---
Assessment
-
Seen on HD. no complaints. Still weak. VSS, access ok
Progress Note - Hemodialysis
-
Date of Service: October 06, 2023
Duration: 3 hours
Potassium Bath: 3
Calcium Bath: 2.5
Opti-Dialyzer: 160
Ultrafiltration: Other (1kg)
Blood Flow: 350
Dialysate Flow: 600
Heparin: 500x2
EPO: 4000 units
[2023-10-06] MEDS: RETACRIT 4000 UNITS IV (18:31)
[2023-10-06] MEDS: TOPROL XL PO (21:07)
[2023-10-06] MEDS: LIDOCAINE 4% PATCH 1 PATCH TOPICAL (21:07)
--- NOTE | 2023-10-06 21:21 | PTCARENOTE ---
Received pt at change of shift. Pt was getting dialysis that ended at about 20:15. 1kg taken off during HD session. Pt very lethargic and drowsy; unable to state the current year. Provided hygiene care and syed care. MATAMOROS; on 5 L NC with pulse
ox 97%. Lungs diminished with faint crackles. Pt unable to take PO medication d/t lethargy. Resting in bed with call ríos in reach.
--- NOTE | 2023-10-06 23:48 | VATNOTE ---
CALLED TO ASSESS BLEEDING R TUNN HDC. GROSSLY BLOODY DRSG BUT MINIMAL ACTIVE BLEEDING NOTED FROM CATHETER INSERTION SITE. RD PER PROTOCOL WITH QUICK CLOT AND FOLDED 4X4'S TO PROVIDE A MOD PRESSURE DRSG. PCN AWARE OF INTERVENTION. VAT TO FOLLOW.
[2023-10-07] VITALS (45 sets, daily range): BP systolic 103–183; BP diastolic 62–143; PULSE 2–82; BMI 20.7
--- NOTE | 2023-10-07 01:11 | PTCARENOTE ---
Pt HD Chest wall site oozing despite dressing being reinforced by HD RN. VAT called to beside to redress.
[2023-10-07] MEDS: SYNTHROID PO (04:59)
[2023-10-07 05:26] LABS: Blood Urea Nitrogen 50 mg/dl (7-17); Calcium 9.1 mg/dl (8.4-10.2); Carbon Dioxide 22 mmol/L (22-30); Chloride 101 mmol/L (98-107); Estimated Creatinine Clearance 29 ml/min; Glucose 164 mg/dl (70-99); Potassium 4.1 mmol/L (3.5-5.1); Sodium 139 mmol/L (135-145)
[2023-10-07] MEDS: XOPENEX 0.63 MG INHALANT SOLUTION 0.630000000000000004 MG INH ×2 (07:24→20:01)
[2023-10-07] MEDS: PULMICORT 0.5 MG INH ×2 (07:24→20:01)
[2023-10-07] MEDS: LOW STRENGTH ASPIRIN 81 MG PO (09:15)
[2023-10-07] MEDS: DELTASONE 30 MG PO (09:15)
[2023-10-07] MEDS: ELIQUIS 5 MG PO ×2 (09:15→20:44)
[2023-10-07] MEDS: SYNTHROID 100 MCG PO (09:16)
[2023-10-07] MEDS: VITAMIN D3 (cholecalciferol) 50 MCG PO (09:16)
[2023-10-07 12:48] LABS: Hematocrit 29.9 % (37.0-47.0); Hemoglobin 9.4 g/dL (12.0-16.0)
[2023-10-07] MEDS: RETACRIT 4000 UNITS IV (12:58)
[2023-10-07] MEDS: COMPAZINE 5 MG IV (13:14)
--- NOTE | 2023-10-07 13:41 | PTCARENOTE ---
see nursing assessment. pt restless this am states she feels 'crappy' but unable to name specific problem. appetite is poor. right chest dressing over hd cath reinforced d/t bloody draiage. spoke with Raúl to inform of continued drainage. pt
currently on hemodialysis. medicated x 1 wit 5 mg iv compazine for c/o nausea.o2 weaned down to 2 liters and sat is currently 94.
[2023-10-07] MEDS: XOPENEX 0.63 MG INHALANT SOLUTION INH (13:45)
--- NOTE | 2023-10-07 14:26 | W.PN.HOSP.TC ---
Today's Communication/Plan
-
CW HD per renal
Assessment / Plan
Assessment / Plan
63-year-old female with past medical history of PAD with recent aortoiliac stent, CAD, CKD IV, moyamoya syndrome, hypothyroidism, hyperlipidemia, hypertension, ovarian cancer, TIA, COPD, brain bypass x 3 came to the hospital with chest pain and
shortness of breath. EKG with new ST depressions. Initial troponin is 0.215 with a proBNP greater than 27,000, creatinine 2.0 (baseline). She was taken urgently to cardiac cath complicated by acute resp failure requiring intubation; shown to have
severely elevated filling pressures. No new CAD. She required intubation, admitted to ICU with Randolph-Yovany catheter placed, IV Bumex gtt.
.
#Acute kidney injury on CKD stage IIIb
#Mild hyponatremia
-Baseline ~2. Did received contrast on admission. However, greater than 1 week at this point.
-creatinine got progressively worse
-BUN severely elevated ?due to steroids
-Per cards, monitor clinically and no plan for repeat RHC.
-IV Lasix discontinued and started on Lasix infusion.
-syed to monitor urinary output. wt remains elevated.
-s/p HD catheter placement on 10/04 and started on HD subsequently afterwards.
-cw HD per renal
-appreciate renal consult
#Acute hypoxemic respiratory failure secondary pulmonary edema requiring intubation mechanical ventilation, elevated filling pressures on the catheterization
#Hypertensive emergency with flash pulmonary edema
#Acute on chronic congestive heart failure with preserved ejection fraction
#Non-NM troponin elevation
-cardiac cath without significant CAD;+ elevated pressures
-required intubation in [facility] 09/20; s/p extubation on 09/21
-Bumex gtt stopped 09/23
-Lasix uptitrated to 60 mg twice daily to daily and subsequently now started on Lasix infusion
-Randolph-Yovany catheter now out
-Per patient discussion with her primary neurologist who stated okay for blood pressure to be lowered further if needed and to be monitored neurologic
-continue aspirin/statin restarted
-Plan for of goal-directed medical therapy pending stabilization of creatinine probably as outpatient.
-CXR on 09/30 am-reviewed bilateral pleural effusion. Stable. Cardiomegaly is stable.
#Toxic metabolic encephalopathy likely secondary to uremia versus polypharmacy
DC Benadryl, BuSpar, Xanax and melatonin
Monitor mentation-imrpoved
#Suspscted mild Acute COPD exacerbation
-Continue bronchodilators. Severe COPD recent PFTs.
-Not severely wheezing or bronchospastic. downtitration of steroids to 20mg q12h and switched to po steroids.
# Leukocytosis likely secondary to high-dose steroids
-Down titration of steroids to p.o. steroid taper. Afebrile. CBC in the morning
# Dyspnea likely multifactorial CHF and COPD
Plan as above
improving
exacerbated at times due to severe anxiety/panic attacks
BiPAP nightly and as needed
#moderate pericholecystic edema at the gallbladder
-AST/ALT elevated but could be due to congestion
-No severe RUQ pain-d/w with spouse who also agreed
-Abdominal ultrasound-Trace gallbladder sludge. Small gallbladder stone versus polyp. Mild gallbladder wall thickening. Negative sonographic Hurt's sign. No findings to suggest biliary tract dilatation.
-Continue to monitor for diet tolerance. Monitor for diet tolerance
# Normocytic anemia
-No active bleeding
-Continue to trend, stable
-iron studies - anemia inflammation
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
-bilaterally s/p diagnostic arteriogram, AFX stent graft placement, balloon angioplasty 09/01/23
-COAL GRADER Eliquis resumed
#Livedo reticularis
-vascular following; no acute issues from vascular standpoint
#essential HTN
-started on toprol.
#anxiety/panic attacks
-hold meds for now
#hypothyroidism
-levothyroxine continued
# ex Smoker
#Mixed hyperlipidemia
-statin continued
#Moyamoya syndrome, 3 surgical interventions
Per patient discussion with her primary neurologist who stated okay for blood pressure to be lowered further if needed and to be monitored neurologically.
#DVT prophylaxis - Eliquis
#CODE status
-full code
d/w with spouse at bedside - he is seeing some improvement since HD
Anticipated Discharge: > 48 hours
Subjective/Interval History
-
Date of Service: October 07, 2023
Seen earlier in the morning.
This is late note entry.
feeling improved with regards to appetite and oral intake.
Objective Data
-
Labs:
Laboratory Results
10/07/23 10/07/23
04:50 12:37
Hgb 9.4 L
Hct 29.9 L
Sodium 139
Potassium 4.1
Chloride 101
Carbon Dioxide 22
BUN 50 H
Creatinine 1.9 H
Glucose 164 H
Calcium 9.1
Vital Signs:
Vital Signs
Temp Pulse Resp BP Pulse Ox
97.5 F 96 21 166/98 94
10/07/23 11:08 10/07/23 13:00 10/07/23 13:00 10/07/23 13:00 10/07/23 13:09
I&O
10/06/23 10/07/23 10/08/23
06:59 06:59 06:59
Intake Total 170 / 170 240 / 240
Output Total 1325 / 1325 375 / 375
Balance -1155 / -1155 -135 / -135
Review of Systems
-
Respiratory: Denies Trouble Breathing (at rest)
Cardiac: Denies Chest Pain
Abdomen/GI: Denies Nausea or Vomiting
Neuro: Denies Dizzy
Physical Exam
-
General: No Apparent Distress
HEENT: Moist Mucous Membranes
Respiratory: Clear to Auscultation and Non Labored Respirations; Negative Accessory Resp Muscle Use
Cardiac: Regular Rhythm and S1/S2
GI: Soft
Neuro: AO x 3
Data Reviewed
-
Labs: Labs Reviewed by me
--- NOTE | 2023-10-07 14:40 | CM ---
Patient with Dx SUAD on CKD 3B, Acute hypoxemic respiratory failure s/p extubation on 09/21, pulmonary edema, CHF, acute COPD exacerbation, TME. O2 3L. Receiving IV Lasix. Tunneled HD cath placed - new HD. O2 2L. PT 09/29; recommended HH. OT Krystin
10/05; goals to be achieved by d/c.
Met with patient while receiving HD - appeared lethargic, drowsy. Dialysis nurse stated patient seemed restless.
Spoke with patient's Lambert; provided update [facility] is still processing her referral for dialysis.
inquired about process to apply for Medicare and when she would be eligible - provided website to Medicare.gov HD benefits indicating: 'if you�re under 65 and only eligible for Medicare because of ESRD, your Medicare coverage will usually
start on the first day of the fourth month of your dialysis treatments.' Encouraged to go online to Medicare website and informed him that [facility] may be a good resource also.
indicated that he has spoken with Dr Mendez and he is aware of patient's current mentation. He would like to see if patient improves in her mentation and mobility in the next few days and then decide about SNF for rehab vs home with VN &
possibly a caregiver.
Message to LINDA Can; hoping for PT session tomorrow, to determine patient's ability to participate and help decide about SNF vs home with VN.
Plan follow up with PT/OT re; therapy needs.
Plan watch for any home O2 needs.
Plan SNF for short term rehab vs home with VN.
[2023-10-07] MEDS: MANNITOL 25% 12.5 GRAMS IV (14:52)
[2023-10-07] MEDS: MANNITOL 25% IV (14:53)
--- NOTE | 2023-10-07 15:20 | W.PN.NEPH.HD ---
Assessment
-
- not feeling well on HD
- nauseous/restless
- Cr noted, significant urine in bag
Progress Note - Hemodialysis
-
Date of Service: October 07, 2023
Duration: 30 minutes and 3 hours
Potassium Bath: 2
Calcium Bath: 2.5
Opti-Dialyzer: 160
Ultrafiltration: Other
Blood Flow: 400
Dialysate Flow: 600
[2023-10-07] MEDS: HEPARIN 3900 UNITS INTRACATH (15:24)
[2023-10-07] MEDS: TOPROL XL 25 MG PO (17:51)
[2023-10-07] MEDS: LIDOCAINE 4% PATCH 1 PATCH TOPICAL (20:44)
[2023-10-08] VITALS (48 sets, daily range): BP systolic 127–173; BP diastolic 64–107; PULSE 82; O2SAT 95; BMI 20.5
[2023-10-08] MEDS: SYNTHROID 100 MCG PO (05:42)
[2023-10-08] MEDS: PULMICORT 0.5 MG INH ×2 (08:06→20:33)
[2023-10-08] MEDS: XOPENEX 0.63 MG INHALANT SOLUTION 0.630000000000000004 MG INH ×2 (08:06→20:33)
[2023-10-08] MEDS: DELTASONE 20 MG PO (08:36)
[2023-10-08] MEDS: ELIQUIS 5 MG PO ×2 (08:36→21:56)
[2023-10-08] MEDS: VITAMIN D3 (cholecalciferol) 50 MCG PO (08:36)
[2023-10-08] MEDS: LOW STRENGTH ASPIRIN 81 MG PO (08:37)
--- NOTE | 2023-10-08 09:51 | W.PN.PUL3 ---
Today's Communication / Plan
-
Continue nebulizers while in the hospital
Okay to continue nocturnal BiPAP if patient is willing to use while in the hospital
Oxygen has been weaned off
Physical therapy as able
Taper off prednisone
Continue dialysis and cardiac management
Sign off.
Assessment
-
Impression:
Acute hypoxemic respiratory failure due to pulmonary edema requiring intubation and mechanical ventilation-elevated filling pressures on right heart catheterization 09/21/2023
Intubated by anesthesia at [facility] - due to orthopnea and resp distress in spite of BPAP
Extubated 09/22/2023
Acute on chronic heart failure with preserved ejection fraction/non-ST elevation myocardial infarction? Type II
Chest x-ray 09/21/2023: Reviewed showed mild cardiomegaly. Mild pulmonary vascular congestion. Small right pleural effusion.
Hypertensive urgency
Chronic anemia
Chronic leukocytosis
SUAD - DDx includes hypoperfusion from cardiorenal syndrome vs ATN from over-diuresis
Conditions present prior admission:
Conditions present [facility]KER
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
COPD
Moderate obstruction with positive/significant bronchodilator response, follows Dr White
Chronic cough noted
Upper airway cough syndrome
Moderate cigarette smoker (10-19 cigs/day) with longstanding tobacco abuse with [id number] history
TIA, recurrent
Ovarian cancer diagnosed age (no chemo, RT)
Hypertension
Hypercholesterolemia
Hypothyroidism
Moyamoya disease
CAD with occluded RCA
CKD 3/4
Vulva cancer (no RT, chemotherapy)
PAD
Appendectomy 02/1992
Hysterectomy, BSO, omentectomy 02/1992
Partial vulvectomy 2009
Brain bypass x3
Appendectomy
Plan:
From the pulmonary perspective seems to be improved.
Oxygen has been weaned off-on room air pulse ox was 95% during my evaluation on 10/08/2023.
Started on dialysis 10/04/2024. Fluid balance negative/weight trending lower.
No new pulmonary complaints.
-
Unfortunately, with aggressive diuresis worsening renal function.
Hypoxemic respiratory failure has resolved.
Pulmonary following regarding underlying severe COPD. Was not on therapy prior to admission/no oxygen requirements prior admission.
-
Continue BPAP as needed during daytime and also every night for decompensated HF-only during hospital stay.
Not on home O2 or PAP therapy by .
-
Chest x-ray 10/04/2023:Pulmonary vascularity borderline prominent; Mild cardiomegaly; Small bilateral pleural effusions.
CT chest 10/01/2023: No significant emphysema or pulmonary fibrosis. Bibasilar compressive atelectasis and small pleural effusions.
-
COPD without bronchospasm. No evidence for acute exacerbation.
No bronchospasm has been noted during this admission.
Severe COPD via PFT from September 14, 2023 with post BD FEV1 1.36 L / 49%. Very severe gas exchange capacity defect with DLCO: 34% (DLco/VA: 45%)
Continue Pulmicort twice a day-while in the hospital.
Continue Xopenex 3 times a day-while in the hospital.
DuoNebs as needed
Eventual outpatient follow-up with Dr. Choudhury
Encourage incentive spirometry
Steroids started on 09/27 by cardiology --> now has been transition to prednisone. Continue taper to off.
-
Acute on chronic heart failure with reduced ejection fraction
Status post right heart catheterization 09/21/2023:
1. Right dominant circulation with chronic total occlusion of the proximal RCA, collateralized by the left system.
3. Hypertensive emergency.
4. Acute congestive heart failure.
5. Severely elevated filling pressures (LVEDP = 25 mmHg, PCWP = 25 mmHg at 68.0 kg).
6. Severe vasculopathy including moyamoya status post carotid artery bypass and recent aortoiliac angioplasty and stent placement.
-
Echocardiogram: 09/22/2023 Mildly reduced left ventricular ejection fraction. Inferior wall and apical hypokinesis. LVEF 40%. No significant valvular disease. Normal right atrium. Normal right ventricle.
Cardiology continues to follow.
Lasix drip ongoing discontinued after dialysis.
Acute kidney injury, worsening. Now started on dialysis 10/05/2023.
-
No evidence for infection. Has not required antibiotics.
-
Glycemic control: Insulin as needed. Particularly on systemic steroids.
Target blood sugar 140-180
-
Anemia noted: No evidence for bleeding.
Back on oral anticoagulants with apixaban since 09/25/2023
Continue to monitor hemoglobin.
Anemia contributing to shortness of breath as well.
Physical therapy as tolerated
Occupational Therapy as tolerated
DNR status
GOC discussion: Dr Choudhury discussed goals of care with the patient and mentioned hospice. She is not currently ready for hospice. at bedside during that conversation. They want to continue full medical management for now and they still
are not sure about dialysis if it comes to that. For now we will continue with aggressive diuresis and trending her labs.
Pulmonary follow up at [facility] on 11/03/[address] Ayers updated 10/05/2023 at the bedside.
-
Improved from the pulmonary perspective. No additional recommendations at this point. I will sign off.
Please call with questions.

Diagnostic Data
Chest X-ray: 09/29/2023-Pulmonary vascularity borderline prominent; mild cardiomegaly; Small bilateral pleural effusions.
Chest X-ray: 09/07/2023-Small right and trace left pleural effusions with associated probable atelectasis, slightly progressed.
Chest X-Ray: 09/01/23- No acute cardiopulmonary process.
CT Chest/Abd/Pelvis 10/01/2023:
1).There are small bilateral pleural effusions, increased in volume when compared with the prior study and associated with compressive atelectasis at both lung bases
2). There is a 2 cm pleural-based area of parenchymal airspace disease in the anteromedial aspect of the lingula, new when compared with the prior study which may be atelectasis or minimal pneumonia
3). There is moderate cardiomegaly
4).There is moderate pericholecystic edema at the gallbladder such as may be seen with cholecystitis.
5). There is aortobiiliac stent graft
6). There is mild left-sided renal cortical atrophy
7).There is moderate ascites in the pelvis
CT Scan: AP 06/25/23- IMPRESSION:
1. Advanced aortic atherosclerotic changes without aneurysmal dilation. Irregular mural thrombus along distal thoracic and abdominal aorta. Moderate stenosis of the infrarenal aorta.
2. High-grade stenosis of the proximal right common iliac artery. Moderate stenosis left common iliac artery. Left profunda femoral stenosis. Three-vessel runoff on the right and 2 vessel runoff on left.
3. Bilateral renal cortical scarring. Atrophic changes of the left kidney as compared with the right.
[facility] 04/09/23- CONCLUSIONS
1: Inferobasal akinesis with EF 54%
2: Single-vessel CAD (chronic total occlusion of the proximal RCA)
3. Recommend continued medical therapy with aspirin and high intensity statin
Echo 09/08/23:
Normal LV size with normal systolic function.
LVEF is 55% by Aguilar's method of discs..
RCA territory mild hypokinesis.
Mild concentric LVH.
Stage I diastolic dysfunction suggestive of abnormal relaxation.
Normal right ventricular size and function.
Mild mitral regurgitation.
Echo: 03/23/23- Normal biventricular size and systolic function without regional wall motion abnormality. Possible basal to mid inferior hypokinesis. Mild concentric left ventricular hypertrophy.
No significant valvular disease. Compared to previous echo 05/10/12, the possible basal inferior hypokinesis is new.
PFT's: 05/28/23- FVC was 2.06L or 58% predicted. FEV1 was 1.10L or 40% predicted. Ratio 53. Post FEV1 was 1.22L or 44% predicted, 11% change.
Lung volumes: TLC was 4.05L or 74% predicted. RV/TLC was 49%. Diffusion was 10.17 or 42% predicted. When adjusted for hemoglobin was unchanged.
Spirometry demonstrates severe obstruction. There was significant bronchodilator response in the FVC. Lung volumes demonstrate mild restriction. There is borderline air trapping. There is a moderate diffusion impairment.
Subjective Data
-
Date of Service:
Date of Service: October 08, 2023
Chief Complaint: Pulmonary Follow Up
Subjective:
Feeling tired and debilitated
Oxygen has been weaned off
Denies any cough or phlegm production.
Tolerating dialysis
Review of Systems
Cardiopulmonary: Dyspnea and Dyspnea on Exertion
Objective Data
Data Reviewed
Vital Signs / I&O / Oxygen:
Vital Signs
Temp Pulse Resp BP Pulse Ox
97.9 F 87 22 146/90 95
10/08/23 08:34 10/08/23 08:10 10/08/23 08:10 10/08/23 00:00 10/08/23 09:36
Intake and Output
10/07/23 10/08/23 10/09/23
06:59 06:59 06:59
Intake Total 240 / 240 400 / 400 60 / 60
Output Total 375 / 375 500 / 500
Balance -135 / -135 -100 / -100 60 / 60
SaO2 [A/C] 93
SaO2 95
Nasal Cannula flow liters per 2
minute
Physical Exam
General: Respiratory Distress (trace on BPAP) and Other (Able to speak in full sentences arrest)
HEENT: Normocephalic, Anicteric, Moist Mucous Membranes, Thrush (n) and Other (BPAP FFM)
Cardiovascular: S1-S2, Regular Rhythm and Peripheral Edema (negative)
Respiratory: Wheeze (negative), Crackles (Bilateral (bases to midlung ramos bilaterally)), Rhonchi (negative), Stridor (n) and Other (Reduced breath sounds on R base)
GI: Soft, Distended (Mild), Non Tender and Normal Bowel Sounds
Neurology: Awake, Oriented, AO x 3 and No Motor Deficits
Skin: Warm, Dry and Jaundice (negative)
Labs/Micro/Reports
Lab Data
10/07/23 12:37
[2023-10-08 10:54] LABS: Blood Urea Nitrogen 46 mg/dl (7-17); Calcium 9.3 mg/dl (8.4-10.2); Carbon Dioxide 24 mmol/L (22-30); Chloride 98 mmol/L (98-107); Estimated Creatinine Clearance 26 ml/min; Glucose 199 mg/dl (70-99); Sodium 135 mmol/L (135-145); eGFR 25.99
--- NOTE | 2023-10-08 11:52 | W.PN.NEPH.PH ---
Today's Communication / Plan
-
- plan for HD tomorrow
Assessment/Plan
-
Impression:
Chest pain shortness of breath: Congestive heart failure decompensation/non-ST elevation OR
Chronic kidney disease stage IV with baseline creatinine of 2
Hypertension urgency
Aorta iliac revascularization following potential atheroembolism August 2023
COPD
Moyamoya disease/complex peripheral arterial disease
Intubation
echo EF 40-45%, WMA
Plan:
d/w patient and
patient initiated on dialysis, and completed 3 treatments
Cr continuing to rise in between HD treatments. plan for BMP prior to HD tomorrow
tunneled HD cath in place
has made 500cc of urine without lasix
breathing is much better
unfortunately -- patient with increased confusion. delirium vs. Moyamoya disease? agree with neuro involvement.
-
-
Date of Service: October 08, 2023
CC / HPI / ROS
-
Chief Complaint:
CKD
History of Present Illness:
SUAD/Cr up to 4.5, initiated on dialysis
off lasix gtt
breathing improved
Review of Systems:
laying flat, off supplemental O2
overall feels worse
no CP
Labs
-
Labs:
WBC 18.6 10^3/uL (4.8-10.8) H 10/05/23 04:50
RBC 2.82 10^6/uL (4.20-5.40) L 10/05/23 04:50
Hgb 9.4 g/dL (12.0-16.0) L 10/07/23 12:37
Hct 29.9 % (37.0-47.0) L 10/07/23 12:37
Plt Count 425 10^3/uL (130-400) H 10/05/23 04:50
Sodium 135 mmol/L (135-145) 10/08/23 10:25
Potassium 4.0 mmol/L (3.5-5.1) 10/08/23 10:25
Chloride 98 mmol/L (98-107) 10/08/23 10:25
Carbon Dioxide 24 mmol/L (22-30) 10/08/23 10:25
BUN 46 mg/dl (7-17) H 10/08/23 10:25
Creatinine 2.1 mg/dL (0.6-1.0) H 10/08/23 10:25
eGFR 25.99 10/08/23 10:25
Glucose 199 mg/dl (70-99) H 10/08/23 10:25
Calcium 9.3 mg/dl (8.4-10.2) 10/08/23 10:25
Phosphorus 5.0 mg/dl (2.5-4.5) H 09/21/23 19:10
Jzn-G-Rdmxmctdoao Pept > 78117 pg/ml 09/29/23 04:09
Albumin 4.0 g/dl (3.5-5.0) 10/03/23 05:45
Physical Exam
-
Vital Signs:
Vital Signs
Temp Pulse Resp BP Pulse Ox
98 F 83 18 161/95 93
10/08/23 11:33 10/08/23 10:30 10/08/23 10:30 10/08/23 10:30 10/08/23 10:30
Cardiovascular:: Regular rate and rhythm
Respiratory:: Bilateral: Coarse
Lung Excursion:: Normal
Abdomen:: Nontender and Soft
Bowel Sounds:: Normal
Extremity Edema:: None: Bilateral:
Portillo Catheter: Yes
--- NOTE | 2023-10-08 12:14 | CON.NEURO4 ---
Consultation - Neurology 4
-
CONSULTING PHYSICIAN: William Montes MD(Neurology)
REFERRING PHYSICIAN: ЕЛЕНА Calix(Hospitalist)
DICTATED BY: William Montes MD
DATE/TIME OF REQUEST: 10/08/2023
DATE/TIME OF CONSULTATION: 10/08/2023 1200P
Reason for Consultation: Altered mental Status
History of Present Illness:
This is a 63 year old right handed female) who has been admitted to the hospital on September 20 with shortness of breath. She gives a h/o PAD with recent aortoiliac stent, CAD, CKD, moyamoya syndrome, hypothyroidism, hyperlipidemia, hypertension,
ovarian cancer, TIA, COPD, brain bypass x 3 came to the hospital with chest pain and shortness of breath. Elevated troponin and proBNP in ED. Seen by cardiology and underwent cardiac catheterization which revealed:1. Right dominant circulation
with chronic total occlusion of the proximal RCA, collateralized by the left system; 2. Severely elevated filling pressures (LVEDP = 25 mmHg, PCWP = 25 mmHg at 68.0 kg).
She had uncontrolled HTN with CHF
Full dose aspirin given in ED.
Past Medical History: PAD with aortoiliac stent, CAD, CKD, moyamoya syndrome, hypothyroidism, hyperlipidemia, hypertension, ovarian cancer, TIA, COPD
Surgical History: Cerebral bypass
Family History: NC
Social History: Lived at home with . Smoked 1ppd
Allergies: NKA
Home Medications:
Review of Symptoms:
Patient denies any fever, headache, chest pain, shortness of breath, GI or symptoms.
�Per the HPI.�All systems are reviewed negative except above.
Vital Signs: Temp 36.6 C Pulse 83 Resp 18 BP161/95 Pulse Ox 93
Physical Exam:
The patient is afebrile, heart sounds S1 and S2 are (regular / irregular), and chest is clear to auscultation bilaterally.
Neurologic Examination:
The patient is awake, confused and oriented x person. She is able to follow commands and answer questions appropriately. Speech is limited with dysarthria. There is no aphasia. Attention concentration and memory are impaired
On cranial nerve assessment, pupils are 3 mm bilateral, round and reactive to light and accommodation. Visual ramos are full. Extraocular movements are intact. Facial sensations are intact and bilaterally symmetrical, there is no facial asymmetry.
Hearing is intact bilaterally to normal conversation volume. Tongue palate and uvula are midline. Sternocleidomastoid strengths are full bilaterally. Motor strengths are 4/5 bilateral upper and lower extremities on medical research Danevang scale.
There is no drift or involuntary movement noted.
Deep tendon reflexes are + bilateral upper and lower extremities and Babinski is absent bilaterally.
Sensations of pain, touch, temperature and vibration are decreased bilaterally symmetrical. There was no extinction noted on double simultaneous stimulation. Coordination is intact by finger to nose bilaterally.
Lab Results:
Neuro Imaging: The patient is status post left pterional craniectomy. There is adjacent encephalomalacia involving the left frontal and superior and anterior temporal lobes, similar appearance to previous examinations. Of note, there is decreased
left lateral bulge of the brain through the craniectomy defect when compared to previous examinations.
Slightly more posteriorly within the inferolateral left occipital lobe, there is also a small focus of encephalomalacia.
The patient is status post left occipital craniectomy with an overlying prosthetic calvarial plate. There is small encephalomalacia within the peripheral left occipital lobe, adjacent to the craniectomy site.
Small focus of CSF density in the posterior left lentiform nucleus, stable from previous examination, and compatible with encephalomalacia.
Subtle focal decreased density in the right inferior frontal lobe, an area of encephalomalacia.
There is no midline shift. There is no evidence for acute intracranial hemorrhage.
No evidence for acute intracranial abnormality by CT.
Impression:
Mrs. PRAMOD ZEPEDA is a 63 year old F who has presented to the hospital with complaints of shortness of breath secondary to CHF, COPD and ESRD. Following prolonged hospitalization she is encephalopathic and this is multifactorial
Recommendations:
1. Medical management
2. Eliquis
3. Aspirin
4. EEG
5. CT head
6. Modafinil
7. Decrease Lipitor 10mg
Discussed patient care with: Hospitalist. Overall prognosis is guarded
Vital Signs and Labs
-
Vital Signs and Labs:
Vital Signs
Temp Pulse Resp BP Pulse Ox
36.6 C 83 18 161/95 93
10/08/23 11:33 10/08/23 10:30 10/08/23 10:30 10/08/23 10:30 10/08/23 10:30
Lab Results
10/07/23 12:37
10/08/23 10:25
PT 27.6 Sec (11.4-14.6) H 10/05/23 04:50
INR 2.58 10/05/23 04:50
APTT 49.4 Sec (23.4-35.0) H 09/26/23 04:26
Sodium 135 mmol/L (135-145) 10/08/23 10:25
Potassium 4.0 mmol/L (3.5-5.1) 10/08/23 10:25
BUN 46 mg/dl (7-17) H 10/08/23 10:25
Glucose 199 mg/dl (70-99) H 10/08/23 10:25
Calcium 9.3 mg/dl (8.4-10.2) 10/08/23 10:25
Phosphorus 5.0 mg/dl (2.5-4.5) H 09/21/23 19:10
Hth-Y-Tpefkhwgdsb Pept > 93912 pg/ml 09/29/23 04:09
LDL Cholesterol, Calc 46 mg/dl 09/22/23 03:57
Vitamin B12 358 pg/ml (239-931) 09/23/23 01:10
[2023-10-08 12:44] LABS: Glucose - Point of Care 207 mg/dl (70-99)
--- NOTE | 2023-10-08 12:58 | W.PN.HOSP.TC ---
Today's Communication/Plan
-
Continue with hemodialysis per nephrology
Consult neurology
Assessment / Plan
Assessment / Plan
63-year-old female with past medical history of PAD with recent aortoiliac stent, CAD, CKD IV, moyamoya syndrome, hypothyroidism, hyperlipidemia, hypertension, ovarian cancer, TIA, COPD, brain bypass x 3 came to the hospital with chest pain and
shortness of breath. EKG with new ST depressions. Initial troponin is 0.215 with a proBNP greater than 27,000, creatinine 2.0 (baseline). She was taken urgently to cardiac cath complicated by acute resp failure requiring intubation; shown to have
severely elevated filling pressures. No new CAD. She required intubation, admitted to ICU with [place] catheter placed, IV Bumex gtt.
.
#Acute kidney injury on CKD stage IIIb
-Baseline ~2. Did received contrast on admission. However, greater than 1 week at this point.
-creatinine got progressively worse
-BUN severely elevated
-IV Lasix discontinued and started on Lasix infusion.
-syed to monitor urinary output. wt remains elevated.
-s/p HD catheter placement on 10/04 and started on HD subsequently afterwards.
-cw HD per renal
-appreciate renal consult
#Acute hypoxemic respiratory failure secondary pulmonary edema requiring intubation mechanical ventilation, elevated filling pressures on the catheterization
#Hypertensive emergency with flash pulmonary edema
#Acute on chronic congestive heart failure with preserved ejection fraction
#Non-OK troponin elevation
-cardiac cath without significant CAD;+ elevated pressures
-required intubation in laboratory coordinator 09/20; s/p extubation on 09/21
-Bumex gtt stopped 09/23
-Lasix uptitrated to 60 mg twice daily to daily and subsequently started on Lasix infusion
-[place] catheter now out
-Per patient discussion with her primary neurologist who stated okay for blood pressure to be lowered further if needed and to be monitored neurologic
-continue aspirin/statin restarted
-Plan for of goal-directed medical therapy pending stabilization of creatinine probably as outpatient.
-CXR on 09/30 am-reviewed bilateral pleural effusion. Stable. Cardiomegaly is stable.
- Resolved hypoxia -on RA today
#Toxic metabolic encephalopathy likely secondary to uremia versus polypharmacy
DC Benadryl, BuSpar, Xanax and melatonin
Improved but then today seems Encephalopathic again. She also has some word finding difficulty and with moyamoya disease and frequent TIAs will ask neuro to weigh in.
#Suspected mild Acute COPD exacerbation
-Continue bronchodilators. Severe COPD recent PFTs.
-Not severely wheezing or bronchospastic. On steroids taper.
# Leukocytosis likely secondary to high-dose steroids
-Down titration of steroids to p.o. steroid taper. Afebrile.
# Dyspnea likely multifactorial CHF and COPD
Plan as above
improving
exacerbated at times due to severe anxiety/panic attacks
BiPAP nightly and as needed
#moderate pericholecystic edema at the gallbladder
-AST/ALT elevated but could be due to congestion
-No severe RUQ pain-d/w with spouse who also agreed
-Abdominal ultrasound-Trace gallbladder sludge. Small gallbladder stone versus polyp. Mild gallbladder wall thickening. Negative sonographic Hurt's sign. No findings to suggest biliary tract dilatation.
-Continue to monitor for diet tolerance. Monitor for diet tolerance
# Normocytic anemia
-No active bleeding
-Continue to trend, stable
-iron studies - anemia inflammation
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
-bilaterally s/p diagnostic arteriogram, AFX stent graft placement, balloon angioplasty 09/01/23
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
#Livedo reticularis
-vascular following; no acute issues from vascular standpoint
#essential HTN
-started on toprol.
#anxiety/panic attacks
-hold meds for now
#hypothyroidism
-levothyroxine continued
# ex Smoker
#Mixed hyperlipidemia
-statin continued
#Moyamoya syndrome, 3 surgical interventions
Per patient discussion with her primary neurologist who stated okay for blood pressure to be lowered further if needed and to be monitored neurologically.
#DVT prophylaxis - Eliquis
#CODE status
-full code
d/w with spouse at bedside
DW RN
DW Neurology
total time spent on today's encounter was 52 minutes which included time spent in counseling the patient/family regarding diagnosis and treatment plan as listed above, goals of care, and symptom management. Case was discussed with nursing staff,
specialists, and care coordinators/case management. All labs and imaging personally reviewed by me. Remainder the time spent in detailed review of previous records, lab data, imaging, and other medical provider documentation.
Anticipated Discharge: > 48 hours
Subjective/Interval History
-
Date of Service: October 08, 2023
Patient today not herself. at bedside-he thinks that she did not get enough sleep last night.
I note she seems to have word finding issues; i also find her not herself today.
Patient has moyamoya disease and according to her that she can have TIAs and sometimes word finding difficulties is part of his TIA. She can have couple of TIAs in the same day.
Objective Data
-
Labs:
Laboratory Results
10/08/23
10:25
Sodium 135
Potassium 4.0
Chloride 98
Carbon Dioxide 24
BUN 46 H
Creatinine 2.1 H
Glucose 199 H
Calcium 9.3
Vital Signs:
Vital Signs
Temp Pulse Resp BP Pulse Ox
98 F 83 18 161/95 93
10/08/23 11:33 10/08/23 10:30 10/08/23 10:30 10/08/23 10:30 10/08/23 10:30
I&O
10/07/23 10/08/23 10/09/23
06:59 06:59 06:59
Intake Total 240 / 240 400 / 400 60 / 60
Output Total 375 / 375 500 / 500
Balance -135 / -135 -100 / -100 60 / 60
Review of Systems
-
Unable to obtain full review of systems at this time due to: Other (due to her change in mental status)
Respiratory: Denies Trouble Breathing
Cardiac: Denies Chest Pain
Abdomen/GI: Denies Nausea or Vomiting
Neuro: Denies Headache
Physical Exam
-
General: No Apparent Distress
HEENT: Moist Mucous Membranes
Respiratory: Clear to Auscultation
Cardiac: Regular Rhythm and S1/S2
GI: Soft
Neuro: Awake, Alert, Oriented, No Motor Deficits and Other (seems to have some word finding difficulty; pt today also not much conversive.); Negative Tremors, Slurred Speech or Facial Droop
Psych: Calm and Confused
Data Reviewed
-
Labs: Labs Reviewed by me
[2023-10-08] MEDS: XOPENEX 0.63 MG INHALANT SOLUTION INH (13:46)
--- NOTE | 2023-10-08 14:35 | PTCARENOTE ---
Patient is confused today, unable to answer questions, only says a few words. CT scan of head completed. EEG in progress. Labs completed. Patient is not eating, grimaces when food is in front of her. at bedside.
[2023-10-08] MEDS: PROVIGIL 200 MG PO (15:10)
--- NOTE | 2023-10-08 15:41 | EEG.RPT ---
Electroencephalogram Report
Recording
Date of EE10/08/23
Type of EEG: Routine
Length of EEG recordin minutes
Patient Status: Inpatient
Recording Conditions: Awake and Drowsy
Hyperventilation Performed: No
Photic Stimulation Performed: Yes
Hand Dominance: Unknown
Report
LESS 1 HOUR EEG INTERPRETATION:
Mildly abnormal EEG significant for mild diffuse slowing, left hemisphere breach rhythm, and focal slowing in the left temporal lobe.
CLINICAL CORRELATION:
Diffuse slowing indicates non-specific bihemispheric dysfunction, can be seen in variety of metabolic encephalopathies including but not limited to renal and hepatic injury, CO2 retention, and others.
Left temporal lobe slowing may indicate structural abnormality of the left temporal lobe.
Breach rhythm of the left hemisphere is consistent with skull defect on the left side, likely due to history of craniectomy given findings on CT head
Clinical correlation is advised.
METHODS:
A 21 channel digitized electroencephalogram (EEG) was performed using the 10/20 international system of electrode placement and one-lead of ECG recorded. Study lasted 28 minutes
ELECTROENCEPHALOGRAPHER IMPRESSION(S):
Quality of study
Good
Background
Medium amplitude mix of predominantly theta activity seen in awake and drowsy states
No normal posterior dominant rhythm seen
Background asymmetry is seen with higher amplitude on left hemisphere indicating breach rhythm
Sleep
Drowsiness present
Photic Stimulation
No activation
ECG
Normal sinus rhythm
Abnormalities
Frequent periods of focal slowing seen in the left temporal lobe maximal at T5
No clear interictal epileptiform discharges
No electrographic or clinical seizures seen
[2023-10-08] MEDS: TOPROL XL 25 MG PO (17:18)
--- NOTE | 2023-10-08 17:27 | PTCARENOTE ---
Patient is more alert this evening, able to answer questions. Can state her name, and make needs known. She is sitting up in bed drinking apple juice with guests at bedside. Able to reposition herself in bed.
[2023-10-08] MEDS: LIDOCAINE 4% PATCH 1 PATCH TOPICAL (21:56)
[2023-10-09] VITALS (34 sets, daily range): BP systolic 106–161; BP diastolic 69–110
[2023-10-09] MEDS: SYNTHROID 100 MCG PO (05:21)
[2023-10-09 06:22] LABS: Hematocrit 31.1 % (37.0-47.0); Hemoglobin 10.4 g/dL (12.0-16.0); Mean Corp Hgb Conc. 33.4 g/dL (33.0-37.0); Mean Corpuscular Hgb 33.3 pg (27.0-31.0); Mean Corpuscular Volume 99.7 fL (81.0-99.0); Mean Platelet Volume 11.9 fL (7.4-10.4); Platelet Count 233 10^3/uL (130-400); Red Blood Cell Count 3.12 10^6/uL (4.20-5.40); White Blood Cell Count 21.2 10^3/uL (4.8-10.8)
[2023-10-09 06:39] LABS: Blood Urea Nitrogen 70 mg/dl (7-17); Calcium 9.5 mg/dl (8.4-10.2); Carbon Dioxide 20 mmol/L (22-30); Chloride 98 mmol/L (98-107); Estimated Creatinine Clearance 22 ml/min; Glucose 160 mg/dl (70-99); Potassium 4.1 mmol/L (3.5-5.1); Sodium 136 mmol/L (135-145); eGFR 22.14
[2023-10-09] MEDS: PULMICORT 0.5 MG INH (07:56)
[2023-10-09] MEDS: XOPENEX 0.63 MG INHALANT SOLUTION 0.630000000000000004 MG INH ×2 (07:56→19:38)
[2023-10-09] MEDS: LOW STRENGTH ASPIRIN PO ×2 (08:42→16:29)
[2023-10-09] MEDS: ELIQUIS PO ×2 (08:42→16:29)
[2023-10-09] MEDS: DELTASONE 20 MG PO (08:42)
[2023-10-09] MEDS: VITAMIN D3 (cholecalciferol) PO ×2 (08:42→16:29)
[2023-10-09] MEDS: COMPAZINE 5 MG IV ×2 (08:43→15:27)
--- NOTE | 2023-10-09 10:44 | W.PN.HOSP.TC ---
Today's Communication/Plan
-
Add PPI and Maalox for dyspeptic symptoms
Continue hemodialysis per nephrology
Assessment / Plan
Assessment / Plan
63-year-old female with past medical history of PAD with recent aortoiliac stent, CAD, CKD IV, moyamoya syndrome, hypothyroidism, hyperlipidemia, hypertension, ovarian cancer, TIA, COPD, brain bypass x 3 came to the hospital with chest pain and
shortness of breath. EKG with new ST depressions. Initial troponin is 0.215 with a proBNP greater than 27,000, creatinine 2.0 (baseline). She was taken urgently to cardiac cath complicated by acute resp failure requiring intubation; shown to have
severely elevated filling pressures. No new CAD. She required intubation, admitted to ICU with [place] catheter placed, IV Bumex gtt.
# Episode of change in MS yesterday - She was not herself, word finding difficulty noted. She had right left temporal lobe area headache. She has moyamoya disease with frequent TIAs per . Her symptoms now resolved make me think this more
a TIA than encephalopathy. Currently nonfocal neurologically. CT of the head was negative for any acute finding. EEG showed no obvious seizures. She is on aspirin and Eliquis which which I would continue and follow-up for any further changes .
#Toxic metabolic encephalopathy likely secondary to uremia versus polypharmacy. This was earlier in admission.
DC Benadryl, BuSpar, Xanax and melatonin
.
#Acute kidney injury on CKD stage IIIb
-Baseline ~2. Did received contrast on admission. However, greater than 1 week at this point.
-creatinine got progressively worse
-BUN severely elevated
-IV Lasix discontinued and started on Lasix infusion.
-syed to monitor urinary output. wt remains elevated.
-s/p HD catheter placement on 10/04 and started on HD subsequently afterwards.
-cw HD per renal
#Acute hypoxemic respiratory failure secondary pulmonary edema requiring intubation mechanical ventilation, elevated filling pressures on the catheterization
#Hypertensive emergency with flash pulmonary edema
#Acute on chronic congestive heart failure with preserved ejection fraction
#Non-GA troponin elevation
-cardiac cath without significant CAD;+ elevated pressures
-required intubation in manager labor delivery 09/20; s/p extubation on 09/21
-Bumex gtt stopped 09/23
-Lasix uptitrated to 60 mg twice daily to daily and subsequently started on Lasix infusion
-[place] catheter now out
-Per patient discussion with her primary neurologist who stated okay for blood pressure to be lowered further if needed and to be monitored neurologic
-continue aspirin/statin restarted
-Plan for of goal-directed medical therapy pending stabilization of creatinine probably as outpatient.
-CXR on 09/30 am-reviewed bilateral pleural effusion. Stable. Cardiomegaly is stable.
- Resolved hypoxia -remains on RA
#Suspected mild Acute COPD exacerbation
-Continue bronchodilators. Severe COPD recent PFTs.
-Not severely wheezing or bronchospastic. On steroids taper.
# Nausea with dyspepsis symptoms - Add PPI and maalox . Patient on steroid taper as well as aspirin.
# Leukocytosis likely secondary to high-dose steroids
-Down titration of steroids to p.o. steroid taper. Afebrile.
# Dyspnea likely multifactorial CHF and COPD
Plan as above
improving
exacerbated at times due to severe anxiety/panic attacks
BiPAP nightly and as needed
#moderate pericholecystic edema at the gallbladder
-AST/ALT elevated but could be due to congestion
-No severe RUQ pain-d/w with spouse who also agreed
-Abdominal ultrasound-Trace gallbladder sludge. Small gallbladder stone versus polyp. Mild gallbladder wall thickening. Negative sonographic Hurt's sign. No findings to suggest biliary tract dilatation.
-Continue to monitor for diet tolerance. Monitor for diet tolerance
# Normocytic anemia
-No active bleeding
-Continue to trend, stable
-iron studies - anemia inflammation
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
-bilaterally s/p diagnostic arteriogram, AFX stent graft placement, balloon angioplasty 09/01/23
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
#Livedo reticularis
-vascular following; no acute issues from vascular standpoint
#essential HTN
-started on toprol.
#anxiety/panic attacks
-hold meds for now
#hypothyroidism
-levothyroxine continued
# ex Smoker
#Mixed hyperlipidemia
-statin continued
#Moyamoya syndrome, 3 surgical interventions
Per patient discussion with her primary neurologist who stated okay for blood pressure to be lowered further if needed and to be monitored neurologically.
#DVT prophylaxis - Eliquis
#CODE status
-full code
d/w with spouse at bedside
DW RN
total time spent on today's encounter was 52 minutes which included time spent in counseling the patient/family regarding diagnosis and treatment plan as listed above, goals of care, and symptom management. Case was discussed with nursing staff,
specialists . All labs and imaging personally reviewed by me. Remainder the time spent in detailed review of previous records, lab data, imaging, and other medical provider documentation.
Anticipated Discharge: > 48 hours
Subjective/Interval History
-
Date of Service: October 09, 2023
Today she is better from her mental status standpoint. She feels better and the also states that.
Yesterday she had a left-sided headache. Normally she gets right-sided headaches and sometimes right facial numbness and right eyelid droop with a TIA along with speech impairment. This time she had left-sided headache over the temporal area and
had speech disturbance but no facial symptoms.
On and off headaches ;resolved from yesterday.
No word finding difficulty show today.
Though she feels better from mental status standpoint, her appetite is still poor. She feels bit nauseous. No abdominal pain or diarrhea.Some dyspepsia symptoms-normally no issue.
Objective Data
-
Labs:
Laboratory Results
10/09/23
05:38
WBC 21.2 H
Hgb 10.4 L
Hct 31.1 L
Plt Count 233 D
Sodium 136
Potassium 4.1
Chloride 98
Carbon Dioxide 20 L
BUN 70 H
Creatinine 2.4 H
Glucose 160 H
Calcium 9.5
Vital Signs:
Vital Signs
Temp Pulse Resp BP Pulse Ox
98 F 85 16 155/108 91
10/09/23 07:14 10/09/23 10:00 10/09/23 10:00 10/09/23 09:02 10/09/23 09:02
I&O
10/08/23 10/09/23 10/10/23
06:59 06:59 06:59
Intake Total 400 / 400 360 / 360
Output Total 500 / 500 500 / 500
Balance -100 / -100 -140 / -140
Review of Systems
-
Unable to obtain full review of systems at this time due to: Other (see above)
Cardiac: Denies Chest Pain (this morning)
Neuro: Denies Dizzy
Physical Exam
-
General: No Apparent Distress
HEENT: Moist Mucous Membranes
Respiratory: Clear to Auscultation
Cardiac: Regular Rhythm and S1/S2
GI: Soft, Nondistended, Normal Bowel Sounds and Tender (some discomfort in epigastric area)
Neuro: AO x 3 and No Motor Deficits; Negative Tremors, Slurred Speech or Facial Droop
Psych: Calm
Data Reviewed
-
Labs: Labs Reviewed by me
[2023-10-09] MEDS: PROTONIX 40 MG PO ×2 (12:28→21:24)
[2023-10-09] MEDS: PROVIGIL PO ×2 (12:37→16:29)
--- NOTE | 2023-10-09 12:49 | W.PN.NEPH.HD ---
Assessment
-
Seen on HD. vomiting, no appetite. VSS. menatl status at baseline. Access ok
limited UF today
Progress Note - Hemodialysis
-
Date of Service: October 09, 2023
Duration: 30 minutes and 3 hours
Potassium Bath: 3
Calcium Bath: 2.5
Opti-Dialyzer: 160
Ultrafiltration: Other (0.5kg)
Blood Flow: 400
Dialysate Flow: 600
Heparin: no
EPO: no
--- NOTE | 2023-10-09 12:59 | PTCARENOTE ---
pt alert and oriented this am. c/o nausea and vomited small amount yello/brown liquid. refused any breakfast. hospoitalist aware. compazine given with some relief of nausea. protonix ordered and given. pt assisted oob to recliner and sat in lounge
with x 45 minutes and tolerated well. returned to bed and is now beginning hemodialysis treatment.
[2023-10-09] MEDS: XOPENEX 0.63 MG INHALANT SOLUTION INH (13:47)
[2023-10-09] MEDS: MANNITOL 25% 12.5 GRAMS IV ×2 (14:09→15:30)
[2023-10-09] MEDS: TYLENOL 500 MG PO (14:09)
[2023-10-09] MEDS: FLEXBUMIN 25% FOR HEMODIALYSIS 12.5 GRAMS IV (15:50)
[2023-10-09] MEDS: XANAX 0.25 MG PO (15:59)
--- NOTE | 2023-10-09 16:14 | CM ---
Patient with Dx change in mental status, SUAD on CKD 3B, Acute hypoxemic respiratory failure s/p extubation on 09/21, pulmonary edema, CHF, acute COPD exacerbation, TME. New dialysis this admit. Room air. A/O today per nurse. PT recommends skilled
rehab. OT recommends outpatient therapy.
Spoke with patient's Lambert who was at the bedside; he says patient is hoping to go home at discharge instead of SNF for rehab, however they are still deciding.
Phone call to [facility]; informed him called [facility] twice and unable to be connected to assigned coor Mariaa. left message requesting update on clearance for HD.
Plan follow up with [facility] for HD clearance.
Plan SNF for short term rehab vs home with VN.
[2023-10-09] MEDS: NEURONTIN 300 MG PO (16:23)
[2023-10-09] MEDS: TOPROL XL 25 MG PO (18:41)
--- NOTE | 2023-10-09 19:00 | PTCARENOTE ---
Cannot verify accuracy of captured vital signs prior to 1900.
[2023-10-09] MEDS: LIDOCAINE 4% PATCH 1 PATCH TOPICAL (21:24)
[2023-10-09] MEDS: ELIQUIS 5 MG PO (21:24)
[2023-10-10] VITALS (10 sets, daily range): BP systolic 124–137; BP diastolic 58–82; PULSE 2–73; BMI 19.7
--- NOTE | 2023-10-10 03:02 | PTCARENOTE ---
Assumed care of patient at 1900. Nursing assessment completed and as documented. Patient drowsy but arouses to verbal stimuli, with forgetful conversation. Portillo in place draining small amounts of yellow urine. R 4th toe purple and AMRIT. Right
tunneled HD cath in place, CDI. Administered PM medications without difficulty. VSS, call ríos within reach, care ongoing.
[2023-10-10] MEDS: SYNTHROID 100 MCG PO (04:36)
[2023-10-10] MEDS: XANAX 0.25 MG PO ×2 (05:25→21:04)
[2023-10-10 06:39] LABS: Blood Urea Nitrogen 37 mg/dl (7-17); Carbon Dioxide 23 mmol/L (22-30); Chloride 98 mmol/L (98-107); Estimated Creatinine Clearance 30 ml/min; Glucose 114 mg/dl (70-99); Sodium 135 mmol/L (135-145); eGFR 33.49
[2023-10-10] MEDS: XOPENEX 0.63 MG INHALANT SOLUTION 0.630000000000000004 MG INH ×2 (07:23→14:35)
[2023-10-10] MEDS: ELIQUIS 5 MG PO ×2 (09:02→21:03)
[2023-10-10] MEDS: PROVIGIL PO (09:03)
[2023-10-10] MEDS: PROTONIX 40 MG PO ×2 (09:03→21:03)
[2023-10-10] MEDS: DELTASONE 10 MG PO (09:03)
[2023-10-10] MEDS: VITAMIN D3 (cholecalciferol) 50 MCG PO (09:03)
[2023-10-10] MEDS: LOW STRENGTH ASPIRIN 81 MG PO (09:03)
--- NOTE | 2023-10-10 10:31 | W.PN.NEPH.PH ---
Today's Communication / Plan
-
lasix
Assessment/Plan
-
Impression:
Chest pain shortness of breath: Congestive heart failure decompensation/non-ST elevation WI
Chronic kidney disease stage IV with baseline creatinine of 2
Hypertension urgency
Aorta iliac revascularization following potential atheroembolism August 2023
COPD
Moyamoya disease/complex peripheral arterial disease
Intubation
echo EF 40-45%, WMA
Plan:
d/w patient and
awaiting OP HD arrangements
trial lasix today
tunneled HD cath in place
oliguric without lasix
d/w patient FR. We reviewed the concept of dry weight. We also discussed that all volume accumulated over 48 hours would need to be removed over a 4-hour dialysis treatment. This poses a significant risk of blood pressure drop during dialysis.
This is the greatest concern given her arterial disease. She understands that if she is not good with her fluid restriction she will ultimately go into heart failure because the fluid cannot be removed because her blood pressure would take priority
given her moyomoyo disease. We will trial with Lasix to see if this may either help temper her volume status as an outpatient or even to see if there is a possibility that she may not require dialysis at all. I did tell them that I did not think
that she was dialysis dependent at this time.
-
-
Date of Service: October 10, 2023
CC / HPI / ROS
-
Chief Complaint:
CKD
History of Present Illness:
SUAD/Cr up to 4.5, initiated on dialysis
off lasix gtt
breathing improved
Review of Systems:
laying flat, off supplemental O2
overall feels worse
no CP
Labs
-
Labs:
WBC 21.2 10^3/uL (4.8-10.8) H 10/09/23 05:38
RBC 3.12 10^6/uL (4.20-5.40) L 10/09/23 05:38
Hgb 10.4 g/dL (12.0-16.0) L 10/09/23 05:38
Hct 31.1 % (37.0-47.0) L 10/09/23 05:38
Plt Count 233 10^3/uL (130-400) D 10/09/23 05:38
Sodium 135 mmol/L (135-145) 10/10/23 06:05
Potassium 4.0 mmol/L (3.5-5.1) 10/10/23 06:05
Chloride 98 mmol/L (98-107) 10/10/23 06:05
Carbon Dioxide 23 mmol/L (22-30) 10/10/23 06:05
BUN 37 mg/dl (7-17) H 10/10/23 06:05
Creatinine 1.7 mg/dL (0.6-1.0) H 10/10/23 06:05
eGFR 33.49 10/10/23 06:05
Glucose 114 mg/dl (70-99) H 10/10/23 06:05
Calcium 9.0 mg/dl (8.4-10.2) 10/10/23 06:05
Phosphorus 5.0 mg/dl (2.5-4.5) H 09/21/23 19:10
Soe-A-Lxsqmldjwoi Pept > 66816 pg/ml 09/29/23 04:09
Albumin 4.0 g/dl (3.5-5.0) 10/03/23 05:45
Physical Exam
-
Vital Signs:
Vital Signs
Temp Pulse Resp BP Pulse Ox
98.4 F 76 19 134/80 945
10/10/23 07:32 10/10/23 08:00 10/10/23 08:00 10/10/23 06:08 10/10/23 08:47
[2023-10-10] MEDS: LASIX 80 MG IV (11:54)
--- NOTE | 2023-10-10 13:21 | W.PN.HOSP.TC ---
Today's Communication/Plan
-
Tx to tele
Assessment / Plan
Assessment / Plan
63-year-old female with past medical history of PAD with recent aortoiliac stent, CAD, CKD IV, moyamoya syndrome, hypothyroidism, hyperlipidemia, hypertension, ovarian cancer, TIA, COPD, brain bypass x 3 came to the hospital with chest pain and
shortness of breath. EKG with new ST depressions. Initial troponin is 0.215 with a proBNP greater than 27,000, creatinine 2.0 (baseline). She was taken urgently to cardiac cath complicated by acute resp failure requiring intubation; shown to have
severely elevated filling pressures. No new CAD. She required intubation, admitted to ICU with Only-Yovany catheter placed, IV Bumex gtt.
# Episode of change in MS - She was not herself, word finding difficulty noted. She had right left temporal lobe area headache. She has moyamoya disease with frequent TIAs per . Her symptoms now resolved make me think this more a TIA than
encephalopathy. Currently nonfocal neurologically. CT of the head was negative for any acute finding. EEG showed no obvious seizures. She is on aspirin and Eliquis which which I would continue and follow-up for any further changes .
#Toxic metabolic encephalopathy likely secondary to uremia versus polypharmacy. This was earlier in admission.
Resolved
.
#Acute kidney injury on CKD stage IIIb
-Baseline ~2. Did received contrast on admission. However, greater than 1 week at this point.
-creatinine got progressively worse
-BUN severely elevated
-IV Lasix discontinued and started on Lasix infusion.
-syed to monitor urinary output. wt remains elevated.
-s/p HD catheter placement on 10/04 and started on HD subsequently afterwards.
-cw HD per renal
#Acute hypoxemic respiratory failure secondary pulmonary edema requiring intubation mechanical ventilation, elevated filling pressures on the catheterization
#Hypertensive emergency with flash pulmonary edema
#Acute on chronic congestive heart failure with preserved ejection fraction
#Non-CO troponin elevation
-cardiac cath without significant CAD;+ elevated pressures
-required intubation in bean sprout laborer 09/20; s/p extubation on 09/21
-Bumex gtt stopped 09/23
-Lasix uptitrated to 60 mg twice daily to daily and subsequently started on Lasix infusion
-Only-Yovany catheter now out
-Per patient discussion with her primary neurologist who stated okay for blood pressure to be lowered further if needed and to be monitored neurologic
-continue aspirin/statin restarted
-Plan for of goal-directed medical therapy pending stabilization of creatinine probably as outpatient.
-CXR on 09/30 am-reviewed bilateral pleural effusion. Stable. Cardiomegaly is stable.
- Resolved hypoxia -remains on RA
#Suspected mild Acute COPD exacerbation
-Continue bronchodilators. Severe COPD recent PFTs.
-Not severely wheezing or bronchospastic. On steroids taper.
# Nausea with dyspepsis symptoms - Added PPI and maalox . Patient on steroid taper as well as aspirin. Improved appetite.
# Leukocytosis likely secondary to high-dose steroids but chronicity noted from prior labs results
- Afebrile.
# Dyspnea likely multifactorial CHF and COPD
Plan as above
improving
exacerbated at times due to severe anxiety/panic attacks
BiPAP nightly and as needed
#moderate pericholecystic edema at the gallbladder
-AST/ALT elevated but could be due to congestion
-No severe RUQ pain-d/w with spouse who also agreed
-Abdominal ultrasound-Trace gallbladder sludge. Small gallbladder stone versus polyp. Mild gallbladder wall thickening. Negative sonographic Hurt's sign. No findings to suggest biliary tract dilatation.
-Continue to monitor for diet tolerance. Monitor for diet tolerance
# Normocytic anemia
-No active bleeding
-Continue to trend, stable
-iron studies - anemia inflammation
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
-bilaterally s/p diagnostic arteriogram, AFX stent graft placement, balloon angioplasty 09/01/23
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
#Livedo reticularis
-vascular following; no acute issues from vascular standpoint
#essential HTN
-started on toprol.
#anxiety/panic attacks
-hold meds for now
#hypothyroidism
-levothyroxine continued
# ex Smoker
#Mixed hyperlipidemia
-statin continued
#Moyamoya syndrome, 3 surgical interventions
Per patient discussion with her primary neurologist who stated okay for blood pressure to be lowered further if needed and to be monitored neurologically.
#DVT prophylaxis - Eliquis
#CODE status
-full code
d/w with spouse at bedside
DW RN
Tx to tele
Anticipated Discharge: > 48 hours
Subjective/Interval History
-
Date of Service: October 10, 2023
Feeling better.
Improved appetite today.
Objective Data
-
Labs:
Laboratory Results
10/10/23 10/10/23
04:33 06:05
Sodium Cancelled 135
Potassium Cancelled 4.0
Chloride Cancelled 98
Carbon Dioxide Cancelled 23
BUN Cancelled 37 H
Creatinine Cancelled 1.7 H
Glucose Cancelled 114 H
Calcium Cancelled 9.0
Vital Signs:
Vital Signs
Temp Pulse Resp BP Pulse Ox
96.1 F L 76 19 134/80 945
10/10/23 11:57 10/10/23 08:00 10/10/23 08:00 10/10/23 06:08 10/10/23 08:47
I&O
10/09/23 10/10/23 10/11/23
06:59 06:59 06:59
Intake Total 360 / 360
Output Total 500 / 500 275 / 275
Balance -140 / -140 -275 / -275
Review of Systems
-
Respiratory: Denies Trouble Breathing
Cardiac: Denies Chest Pain
Abdomen/GI: Denies Abdominal Pain, Nausea or Vomiting
Neuro: Denies Dizzy
Physical Exam
-
General: No Apparent Distress
HEENT: Moist Mucous Membranes
Respiratory: Clear to Auscultation
Cardiac: Regular Rhythm and S1/S2
GI: Soft, Nontender, Nondistended and Normal Bowel Sounds
Neuro: AO x 3
Psych: Calm
Data Reviewed
-
Labs: Labs Reviewed by me
[2023-10-10] MEDS: TOPROL XL 25 MG PO (18:26)
[2023-10-10] MEDS: PULMICORT 0.5 MG INH (19:48)
[2023-10-10] MEDS: LIDOCAINE 4% PATCH 1 PATCH TOPICAL (21:03)
[2023-10-10] MEDS: NEURONTIN 300 MG PO (21:03)
[2023-10-11] VITALS (14 sets, daily range): BP systolic 120–139; BP diastolic 72–89; PULSE 2–116
[2023-10-11] MEDS: TYLENOL 500 MG PO (05:39)
[2023-10-11] MEDS: SYNTHROID 100 MCG PO (05:39)
[2023-10-11 06:07] LABS: Hemoglobin 10.4 g/dL (12.0-16.0); Mean Corp Hgb Conc. 32.5 g/dL (33.0-37.0); Mean Corpuscular Hgb 31.4 pg (27.0-31.0); Mean Corpuscular Volume 96.7 fL (81.0-99.0); Mean Platelet Volume 12.1 fL (7.4-10.4); Platelet Count 171 10^3/uL (130-400); Red Blood Cell Count 3.31 10^6/uL (4.20-5.40); Red Cell Dist. Width 19.8 % (11.5-14.5); White Blood Cell Count 15.1 10^3/uL (4.8-10.8)
[2023-10-11 06:26] LABS: Blood Urea Nitrogen 54 mg/dl (7-17); Calcium 8.9 mg/dl (8.4-10.2); Carbon Dioxide 26 mmol/L (22-30); Chloride 96 mmol/L (98-107); Estimated Creatinine Clearance 23 ml/min; Glucose 100 mg/dl (70-99); Potassium 3.3 mmol/L (3.5-5.1); Sodium 134 mmol/L (135-145)
[2023-10-11] MEDS: PULMICORT 0.5 MG INH ×2 (07:01→19:37)
[2023-10-11] MEDS: XOPENEX 0.63 MG INHALANT SOLUTION 0.630000000000000004 MG INH ×2 (07:01→19:37)
--- NOTE | 2023-10-11 07:42 | W.PN.HOSP.TC ---
Today's Communication/Plan
-
see A/P
Assessment / Plan
Assessment / Plan
63-year-old female with past medical history of PAD with recent aortoiliac stent, CAD, CKD IV, moyamoya syndrome, hypothyroidism, hyperlipidemia, hypertension, ovarian cancer, TIA, COPD, brain bypass x 3; came to the hospital with chest pain and
shortness of breath. EKG with new ST depressions. Initial troponin 0.215 with a proBNP greater than 27,000, creatinine 2.0 (baseline). She was taken urgently to cardiac cath complicated by acute resp failure requiring intubation; shown to have
severely elevated filling pressures. No new CAD. She required intubation, admitted to ICU with [place]-Yovany catheter placed, IV Bumex gtt.
A/P:
# Episode of change in MS - She was not herself, word finding difficulty noted, she had right left temporal lobe area headache. She has moyamoya disease with frequent TIAs per .
Her symptoms now resolved, hence likely a TIA than encephalopathy. Currently nonfocal neurologically.
CT of the head was negative for any acute finding.
EEG showed no obvious seizures.
She is on aspirin and Eliquis, to continue and follow-up for any further changes.
# Toxic metabolic encephalopathy likely secondary to uremia versus polypharmacy. This was earlier in admission, resolved
.
# Acute kidney injury on CKD stage IIIb
Baseline SCr ~2. Did received contrast on admission.
creatinine got progressively worse. BUN severely elevated
IV Lasix discontinued and started on Lasix infusion.
syed to monitor urinary output. wt remains elevated.
s/p HD catheter placement on 10/04 and started on HD subsequently afterwards.
cw HD per renal
# Acute hypoxemic respiratory failure secondary pulmonary edema requiring intubation mechanical ventilation, elevated filling pressures on the catheterization
# Hypertensive emergency with flash pulmonary edema
# Acute on chronic congestive heart failure with preserved ejection fraction
# Non-OK troponin elevation
cardiac cath without significant CAD; + elevated pressures
required intubation in dairy lab technician 09/20; s/p extubation on 09/21
Bumex gtt stopped 09/23
Lasix uptitrated to 60 mg twice daily to daily and subsequently started on Lasix infusion
Estero-Yovany catheter now out
Per patient discussion with her primary neurologist who stated okay for blood pressure to be lowered further if needed and to be monitored neurologic
continue aspirin/statin, resume statin if LFT normalize
Plan for of goal-directed medical therapy pending stabilization of creatinine probably as outpatient.
CXR on 09/30 am-reviewed bilateral pleural effusion. Stable. Cardiomegaly is stable.
Resolved hypoxia -remains on RA
# Suspected mild Acute COPD exacerbation
Continue bronchodilators. Severe COPD recent PFTs.
Not severely wheezing or bronchospastic. On steroids taper.
# Nausea with dyspepsia symptoms
Added PPI and maalox. Patient on steroid taper as well as aspirin. Improved appetite.
# Leukocytosis likely secondary to high-dose steroids but chronicity noted from prior labs results
Afebrile.
# Dyspnea likely multifactorial CHF and COPD
Plan as above
improving
exacerbated at times due to severe anxiety/panic attacks
BiPAP nightly and as needed
# moderate pericholecystic edema at the gallbladder
AST/ALT elevated but could be due to congestion
No severe RUQ pain- d/w with spouse who also agreed
Abdominal ultrasound-Trace gallbladder sludge. Small gallbladder stone versus polyp. Mild gallbladder wall thickening. Negative sonographic Hurt's sign. No findings to suggest biliary tract dilatation.
Continue to monitor for diet tolerance. Monitor for diet tolerance
# Normocytic anemia
No active bleeding
Continue to trend, stable
iron studies - anemia inflammation
# Severe occlusive atherosclerotic disease of iliac arteries
bilaterally s/p diagnostic arteriogram, AFX stent graft placement, balloon angioplasty 09/01/23
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
# Livedo reticularis
vascular following; no acute issues from vascular standpoint
# essential HTN
started on toprol.
# anxiety/panic attacks
hold meds for now
# hypothyroidism
levothyroxine continued
# ex Smoker
# Mixed hyperlipidemia
statin to cont if LFT normalize
# Moyamoya syndrome, 3 surgical interventions
Per patient discussion with her primary neurologist who stated okay for blood pressure to be lowered further if needed and to be monitored neurologically.
#DVT prophylaxis - Eliquis
#CODE status -full code
total time spent 51 min
Anticipated Discharge: > 48 hours
Subjective/Interval History
-
Date of Service: October 11, 2023
Objective Data
-
Labs:
Laboratory Results
10/11/23
05:55
WBC 15.1 H
Hgb 10.4 L
Hct 32.0 L
Plt Count 171 D
Sodium 134 L
Potassium 3.3 L
Chloride 96 L
Carbon Dioxide 26
BUN 54 H
Creatinine 2.3 H
Glucose 100 H
Calcium 8.9
Vital Signs:
Vital Signs
Temp Pulse Resp BP Pulse Ox
36.4 C 82 19 130/78 97
10/11/23 07:00 10/11/23 07:02 10/11/23 07:00 10/11/23 07:00 10/11/23 07:02
I&O
10/10/23 10/11/23 10/12/23
06:59 06:59 06:59
Intake Total 900 / 900
Output Total 275 / 275 775 / 775
Balance -275 / -275 125 / 125
Review of Systems
-
All other systems: Reviewed and negative
Physical Exam
-
General: Well Developed, Well Nourished, No Apparent Distress, Comfortable and Conversant
Respiratory: Clear to Auscultation and Non Labored Respirations; Negative Accessory Resp Muscle Use
Cardiac: Regular Rhythm and S1/S2
GI: Soft, Nontender, Nondistended and Normal Bowel Sounds
Genito-urinary: Syed
Neuro: Awake and Alert
Psych: Calm and Intact Judgement/Insight
Data Reviewed
-
Labs: Labs Reviewed by me
[2023-10-11] MEDS: KCL 40 MEQ PO (08:18)
[2023-10-11] MEDS: LOW STRENGTH ASPIRIN 81 MG PO (08:18)
[2023-10-11] MEDS: SENOKOT-S 1 TABLET PO (08:18)
[2023-10-11] MEDS: PROVIGIL 200 MG PO (08:18)
[2023-10-11] MEDS: VITAMIN D3 (cholecalciferol) 50 MCG PO (08:18)
[2023-10-11] MEDS: ELIQUIS 5 MG PO ×2 (08:18→20:20)
[2023-10-11] MEDS: DELTASONE 10 MG PO (08:19)
[2023-10-11] MEDS: PROTONIX 40 MG PO ×2 (08:19→20:20)
[2023-10-11 08:53] LABS: Magnesium 2.1 mg/dl (1.6-2.3)
--- NOTE | 2023-10-11 09:15 | PTCARENOTE ---
Patient received from pull through hooker. Patient resting comfortably in bed. AAOx3, VSS. No events noted overnight. No complaints of pain at this time, was treated towards end of pull through hooker. Will attempt to get into chair. Downgraded and waiting
for new room. HD planned for tomorrow. Call ríos in reach.
--- NOTE | 2023-10-11 10:34 | W.PN.NEPH.PH ---
Today's Communication / Plan
-
torsemide
Assessment/Plan
-
Impression:
Chest pain shortness of breath: Congestive heart failure decompensation/non-ST elevation [place]
Chronic kidney disease stage IV with baseline creatinine of 2
Hypertension urgency
Aorta iliac revascularization following potential atheroembolism August 2023
COPD
Moyamoya disease/complex peripheral arterial disease
Intubation
echo EF 40-45%, WMA
Plan:
d/w patient
awaiting OP HD arrangements
torsemide 40mg daily.
tunneled HD cath in place
replete K
no apparent renal recovery currently
-
-
Date of Service: October 11, 2023
CC / HPI / ROS
-
Chief Complaint:
CKD
History of Present Illness:
SUAD/Cr now on HD
BP stable
425ml UOP with lasix yesterday
Review of Systems:
off supplemental O2
feels good
no CP
Labs
-
Labs:
WBC 15.1 10^3/uL (4.8-10.8) H 10/11/23 05:55
RBC 3.31 10^6/uL (4.20-5.40) L 10/11/23 05:55
Hgb 10.4 g/dL (12.0-16.0) L 10/11/23 05:55
Hct 32.0 % (37.0-47.0) L 10/11/23 05:55
Plt Count 171 10^3/uL (130-400) D 10/11/23 05:55
Sodium 134 mmol/L (135-145) L 10/11/23 05:55
Potassium 3.3 mmol/L (3.5-5.1) L 10/11/23 05:55
Chloride 96 mmol/L (98-107) L 10/11/23 05:55
Carbon Dioxide 26 mmol/L (22-30) 10/11/23 05:55
BUN 54 mg/dl (7-17) H 10/11/23 05:55
Creatinine 2.3 mg/dL (0.6-1.0) H 10/11/23 05:55
eGFR 23.30 10/11/23 05:55
Glucose 100 mg/dl (70-99) H 10/11/23 05:55
Calcium 8.9 mg/dl (8.4-10.2) 10/11/23 05:55
Phosphorus 5.0 mg/dl (2.5-4.5) H 09/21/23 19:10
Boc-M-Rrrpieuxyic Pept > 52886 pg/ml 09/29/23 04:09
Albumin 4.0 g/dl (3.5-5.0) 10/03/23 05:45
Physical Exam
-
Vital Signs:
Vital Signs
Temp Pulse Resp BP Pulse Ox
97.5 F 82 19 130/78 96
10/11/23 07:00 10/11/23 07:02 10/11/23 07:00 10/11/23 07:00 10/11/23 10:08
Cardiovascular:: Regular rate and rhythm
Respiratory:: Bilateral: CTA
Lung Excursion:: Normal
Abdomen:: Nontender and Soft
Bowel Sounds:: Normal
Extremity Edema:: None: Bilateral:
[2023-10-11] MEDS: DEMADEX 40 MG PO (11:08)
[2023-10-11] MEDS: XANAX 0.25 MG PO ×2 (11:29→20:21)
--- NOTE | 2023-10-11 13:49 | PTCARENOTE ---
Report called to Rabia DEMARCO, [address] [place] [address]. Patient transfered with all known belongings. Patients following over.
[2023-10-11] MEDS: TOPROL XL 25 MG PO (17:41)
[2023-10-11] MEDS: NEURONTIN 300 MG PO (20:20)
[2023-10-11] MEDS: LIDOCAINE 4% PATCH TOPICAL (21:54)
[2023-10-11] MEDS: KCL 20 MEQ PO (21:55)
[2023-10-12] VITALS (7 sets, daily range): BP systolic 130–146; BP diastolic 71–87; PULSE 3; BMI 19.9
[2023-10-12] MEDS: SYNTHROID 100 MCG PO (06:46)
[2023-10-12 06:56] LABS: % Basophils 0.1 % (0-2); % Eosinophils 1.7 % (0-6); % Immature Granulocytes 0.5 % (0-0.5); % Lymphocytes 15.4 % (20.5-51.1); % Neutrophils 76.3 % (42.2-75.2); Absolute Eosinophils 0.3 10^3/uL (0-0.7); Absolute Immature Granulocytes 0.1 10^3/uL (0-0.05); Absolute Lymphocytes 2.4 10^3/uL (1.2-3.4); Absolute Monocytes 0.9 10^3/uL (0.1-0.6); Hematocrit 29.3 % (37.0-47.0); Hemoglobin 9.3 g/dL (12.0-16.0); Mean Corp Hgb Conc. 31.7 g/dL (33.0-37.0); Mean Corpuscular Hgb 31.1 pg (27.0-31.0); Mean Platelet Volume 12.4 fL (7.4-10.4); Nucleated Red Blood Cells % 0 %; Platelet Count 158 10^3/uL (130-400); Red Blood Cell Count 2.99 10^6/uL (4.20-5.40); White Blood Cell Count 15.7 10^3/uL (4.8-10.8)
[2023-10-12 07:13] LABS: ALT (SGPT) 59 U/L (0-35); AST (SGOT) 32 U/L (14-36); Albumin 3.9 g/dl (3.5-5.0); Alkaline Phosphatase 72 U/L (38-126); Blood Urea Nitrogen 68 mg/dl (7-17); Calcium 8.5 mg/dl (8.4-10.2); Carbon Dioxide 24 mmol/L (22-30); Chloride 100 mmol/L (98-107); Estimated Creatinine Clearance 20 ml/min; Glucose 103 mg/dl (70-99); Magnesium 1.8 mg/dl (1.6-2.3); Potassium 3.5 mmol/L (3.5-5.1); Sodium 136 mmol/L (135-145); Total Bilirubin 1.3 mg/dl (0.2-1.3); eGFR 20.11
[2023-10-12] MEDS: XOPENEX 0.63 MG INHALANT SOLUTION 0.630000000000000004 MG INH (08:18)
[2023-10-12] MEDS: PULMICORT 0.5 MG INH ×2 (08:19→19:22)
[2023-10-12] MEDS: PROTONIX 40 MG PO ×2 (09:35→20:13)
[2023-10-12] MEDS: LOW STRENGTH ASPIRIN 81 MG PO (09:35)
[2023-10-12] MEDS: PROVIGIL 200 MG PO (09:35)
[2023-10-12] MEDS: ELIQUIS 5 MG PO ×2 (09:35→20:13)
[2023-10-12] MEDS: VITAMIN D3 (cholecalciferol) 50 MCG PO (09:35)
[2023-10-12] MEDS: DEMADEX 40 MG PO (09:35)
[2023-10-12] MEDS: NEURONTIN PO (09:40)
[2023-10-12] MEDS: NEURONTIN 300 MG PO (11:02)
[2023-10-12] MEDS: XANAX 0.25 MG PO ×2 (11:02→20:20)
--- NOTE | 2023-10-12 11:18 | W.PN.HOSP.TC ---
Today's Communication/Plan
-
OP HD unit ongoing
dc syed-TOV
OOB/ambulate
Assessment / Plan
Assessment / Plan
63-year-old female with past medical history of PAD with recent aortoiliac stent, CAD, CKD IV, moyamoya syndrome, hypothyroidism, hyperlipidemia, hypertension, ovarian cancer, TIA, COPD, brain bypass x 3; came to the hospital with chest pain and
shortness of breath. EKG with new ST depressions. Initial troponin 0.215 with a proBNP greater than 27,000, creatinine 2.0 (baseline). She was taken urgently to cardiac cath complicated by acute resp failure requiring intubation; shown to have
severely elevated filling pressures. No new CAD. She required intubation, admitted to ICU with [place]-Yovany catheter placed, IV Bumex gtt.
A/P:
# Episode of change in MS - She was not herself, word finding difficulty noted, she had right left temporal lobe area headache. She has moyamoya disease with frequent TIAs per .
Currently nonfocal neurologically.
CT of the head was negative for any acute finding.
EEG showed no obvious seizures.
She is on aspirin and Eliquis, to continue and follow-up for any further changes.
Resolved.
# Toxic metabolic encephalopathy likely secondary to uremia versus polypharmacy. This was earlier in admission, resolved
.
# Acute kidney injury on CKD stage IIIb
Baseline SCr ~2. Did received contrast on admission.
creatinine got progressively worse. BUN severely elevated
IV Lasix discontinued and started on Lasix infusion.
syed to monitor urinary output. wt remains elevated.
s/p HD catheter placement on 10/04 and started on HD subsequently afterwards.
on torsemide 40mg daily with good urinary output.
DC syed. TOV today.
Epo per nephro
cw HD per renal
# Acute hypoxemic respiratory failure secondary pulmonary edema requiring intubation mechanical ventilation, elevated filling pressures on the catheterization
# Hypertensive emergency with flash pulmonary edema
# Acute on chronic congestive heart failure with preserved ejection fraction
# Non-AL troponin elevation
cardiac cath without significant CAD; + elevated pressures
required intubation in biological lab technician 09/20; s/p extubation on 09/21
Bumex gtt stopped 09/23
Lasix uptitrated to 60 mg twice daily to daily and subsequently started on Lasix infusion
[place]-Yovany catheter now out
Per patient discussion with her primary neurologist who stated okay for blood pressure to be lowered further if needed and to be monitored neurologic
continue aspirin/statin, resume statin if LFT normalize
Plan for of goal-directed medical therapy pending stabilization of creatinine probably as outpatient.
CXR on 09/30 am-reviewed bilateral pleural effusion. Stable. Cardiomegaly is stable.
Resolved hypoxia -remains on RA
#Constipation
start senokot
# Suspected mild Acute COPD exacerbation
Continue bronchodilators. Severe COPD recent PFTs.
Not severely wheezing or bronchospastic. On steroids taper.
# Nausea with dyspepsia symptoms
Added PPI and maalox. Patient on steroid taper as well as aspirin. Improved appetite.
# Leukocytosis likely secondary to high-dose steroids but chronicity noted from prior labs results
Afebrile.
# Dyspnea likely multifactorial CHF and COPD
Plan as above
improving
exacerbated at times due to severe anxiety/panic attacks
BiPAP nightly and as needed
# moderate pericholecystic edema at the gallbladder
AST/ALT elevated but could be due to congestion
No severe RUQ pain- d/w with spouse who also agreed
Abdominal ultrasound-Trace gallbladder sludge. Small gallbladder stone versus polyp. Mild gallbladder wall thickening. Negative sonographic Hurt's sign. No findings to suggest biliary tract dilatation.
Continue to monitor for diet tolerance. Monitor for diet tolerance
# Normocytic anemia
No active bleeding
Continue to trend, stable
iron studies - anemia inflammation
# Severe occlusive atherosclerotic disease of iliac arteries
bilaterally s/p diagnostic arteriogram, AFX stent graft placement, balloon angioplasty 09/01/23
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
# Livedo reticularis
vascular following; no acute issues from vascular standpoint
# essential HTN
started on toprol.
# anxiety/panic attacks
hold meds for now
# hypothyroidism
levothyroxine continued
# ex Smoker
# Mixed hyperlipidemia
statin to cont if LFT normalize
# Moyamoya syndrome, 3 surgical interventions
Per patient discussion with her primary neurologist who stated okay for blood pressure to be lowered further if needed and to be monitored neurologically.
#DVT prophylaxis - Eliquis
#CODE status -full code
Dispo-home once ready. Refusing SNF.
d/w with nephrology
d/w with spouse at bedside in details
Anticipated Discharge: Within 24 hours
Subjective/Interval History
-
Date of Service: October 12, 2023
Awake. talking. appetite improving. hoping to remove syed
Objective Data
-
Labs:
Laboratory Results
10/12/23
05:46
WBC 15.7 H
Hgb 9.3 L
Hct 29.3 L
Plt Count 158
Sodium 136
Potassium 3.5
Chloride 100
Carbon Dioxide 24
BUN 68 H
Creatinine 2.6 H
Glucose 103 H
Calcium 8.5
Total Bilirubin 1.3
AST 32
ALT 59 H
Alkaline Phosphatase 72
Vital Signs:
Vital Signs
Temp Pulse Resp BP Pulse Ox
97.3 F 79 14 137/81 95
10/12/23 07:51 10/12/23 09:35 10/12/23 08:22 10/12/23 09:35 10/12/23 08:22
I&O
10/11/23 10/12/23 10/13/23
06:59 06:59 06:59
Intake Total 900 / 900 1200 / 1200
Output Total 775 / 775 1300 / 1300
Balance 125 / 125 -100 / -100
Physical Exam
-
General: Well Developed, Well Nourished, No Apparent Distress, Comfortable and Conversant
Respiratory: Clear to Auscultation and Non Labored Respirations; Negative Accessory Resp Muscle Use
Cardiac: Regular Rhythm and S1/S2
GI: Soft, Nontender, Nondistended and Normal Bowel Sounds
Genito-urinary: Syed
Neuro: Awake and Alert
Psych: Calm and Intact Judgement/Insight
[2023-10-12] MEDS: SENOKOT-S 1 TABLET PO ×2 (11:38→20:15)
[2023-10-12] MEDS: RETACRIT 4000 UNITS IV (13:02)
--- NOTE | 2023-10-12 13:59 | W.PN.NEPH.HD ---
Assessment
-
patient seen on Hd
sbp stable at current u/f
Progress Note - Hemodialysis
-
Date of Service: October 12, 2023
Duration: 30 minutes and 3 hours
Potassium Bath: 3
Calcium Bath: 2.5
Opti-Dialyzer: 160
Ultrafiltration: Other (1kg)
Blood Flow: 400
Dialysate Flow: 600
Heparin: 500 times two
EPO: 4000
[2023-10-12] MEDS: TYLENOL 500 MG PO (14:08)
[2023-10-12] MEDS: HEPARIN 4200 UNITS INTRACATH (16:17)
--- NOTE | 2023-10-12 17:01 | CM ---
Addendum entered by Evelin Duque 10/12/23 17:12:
[facility] HD Coordinator is Mamadou @ [phone] EXT [phone].
Original Note:
Patient needs outpatient HD setup. Records forwarded to [facility] previously. Additional records forwarded per their request. Was planning on [place] site. Today, Mariaa @ [facility] notified this that they do not accept patient's insurance.
This called and spoke with Abdelrahman [facility] liaison, he noted that no [facility] clinic accepts patient's insurance. [facility] admission form completed and faxed to [facility] with records. Received confirmation from [facility]. They are checking
insurance and plan on [facility] site for M-W-F @ AM chair. Awaiting confirmation of insurance acceptance. Discharge Plan of Care: Home with [facility] and outpatient HD when approved.
[2023-10-12] MEDS: TOPROL XL 25 MG PO (17:25)
[2023-10-12] MEDS: LIDOCAINE 4% PATCH TOPICAL (21:33)
[2023-10-13 03:38] VITALS: BP 132/71
--- NOTE | 2023-10-13 05:06 | PTCARENOTE ---
Pt aaox3, intentionally positioned herself on the side of the bed and then d/t weakness on her lower extremities she sat on the floor so she could reach her lotion on the counter across from her bed. Then she tried to climb back on the bed and when
unable to do so she called staff for assistance. Pt was seen by this nurse 10 min prior, to assist her to the bedside commode and had no other needs at the time. Call ríos was within reach and bed was in the lowest position. Pt stated that 'did not
press the call light thinking that could get back to bed herself and was bored doing nothing all day'. Pt assessed, no skin changes noted, educated on the use of call light again, VSS 136/77, 78, Pox 97% RA, RR 18 T 98.8. Lead Electrician made aware, Bed
alarm added.
[2023-10-13] MEDS: SYNTHROID 100 MCG PO (05:39)
[2023-10-13 06:00] VITALS: BMI 19.7
[2023-10-13 07:15] VITALS: BP 144/84
[2023-10-13] MEDS: PULMICORT 0.5 MG INH ×2 (07:48→19:53)
--- NOTE | 2023-10-13 08:10 | W.PN.HOSP.TC ---
Today's Communication/Plan
-
await OP HD unit set up
check ua
Wound care
restart statin
renally dose meds
Assessment / Plan
Assessment / Plan
63-year-old female with past medical history of PAD with recent aortoiliac stent, CAD, CKD IV, moyamoya syndrome, hypothyroidism, hyperlipidemia, hypertension, ovarian cancer, TIA, COPD, brain bypass x 3; came to the hospital with chest pain and
shortness of breath. EKG with new ST depressions. Initial troponin 0.215 with a proBNP greater than 27,000, creatinine 2.0 (baseline). She was taken urgently to cardiac cath complicated by acute resp failure requiring intubation; shown to have
severely elevated filling pressures. No new CAD. She required intubation, admitted to ICU with Ethridge-Yovany catheter placed, IV Bumex gtt.
A/P:
# Episode of change in MS - She was not herself, word finding difficulty noted, she had right left temporal lobe area headache. She has moyamoya disease with frequent TIAs per .
Currently nonfocal neurologically.
CT of the head was negative for any acute finding.
EEG showed no obvious seizures.
She is on aspirin and Eliquis, to continue and follow-up for any further changes.
Resolved.
# Toxic metabolic encephalopathy likely secondary to uremia versus polypharmacy. This was earlier in admission, resolved
.
# Acute kidney injury on CKD stage IIIb
Baseline SCr ~2. Did received contrast on admission.
creatinine got progressively worse. BUN severely elevated
IV Lasix discontinued and started on Lasix infusion.
syed to monitor urinary output. wt remains elevated.
s/p HD catheter placement on 10/04 and started on HD subsequently afterwards.
on torsemide 40mg daily with good urinary output.
DC syed.
Epo per nephro
cw HD per renal-MWF schedule
# Acute hypoxemic respiratory failure secondary pulmonary edema requiring intubation mechanical ventilation, elevated filling pressures on the catheterization
# Hypertensive emergency with flash pulmonary edema
# Acute on chronic congestive heart failure with preserved ejection fraction
# Non-MA troponin elevation
cardiac cath without significant CAD; + elevated pressures
required intubation in labor relations or personnel negotiator 09/20; s/p extubation on 09/21
Bumex gtt stopped 09/23
Lasix uptitrated to 60 mg twice daily to daily and subsequently started on Lasix infusion
Ethridge-Yovany catheter now out
Per patient discussion with her primary neurologist who stated okay for blood pressure to be lowered further if needed and to be monitored neurologic
continue aspirin/statin, resume statin as LFTs improved.
Plan for of goal-directed medical therapy pending stabilization of creatinine probably as outpatient.
CXR on 09/30 am-reviewed bilateral pleural effusion. Stable. Cardiomegaly is stable.
Resolved hypoxia -remains on RA
#Constipation
started senokot
bm 10/11 PM
#Urinary discomfort
probably bladder/urethral irritation with prolonged syed catheter
Check UA
# Suspected mild Acute COPD exacerbation
Continue bronchodilators. Severe COPD recent PFTs.
Not severely wheezing or bronchospastic. On steroids taper.
# Nausea with dyspepsia symptoms
Added PPI and maalox. Patient on steroid taper as well as aspirin. Improved appetite.
# Leukocytosis likely secondary to high-dose steroids but chronicity noted from prior labs results
Afebrile.
# Dyspnea likely multifactorial CHF and COPD
Plan as above
improving
exacerbated at times due to severe anxiety/panic attacks
BiPAP nightly and as needed-Refusing it further.
# moderate pericholecystic edema at the gallbladder
AST/ALT elevated but could be due to congestion
No severe RUQ pain- d/w with spouse who also agreed
Abdominal ultrasound-Trace gallbladder sludge. Small gallbladder stone versus polyp. Mild gallbladder wall thickening. Negative sonographic Hurt's sign. No findings to suggest biliary tract dilatation.
Continue to monitor for diet tolerance. Monitor for diet tolerance
# Normocytic anemia
No active bleeding
Continue to trend, stable
iron studies - anemia inflammation
# Severe occlusive atherosclerotic disease of iliac arteries
bilaterally s/p diagnostic arteriogram, AFX stent graft placement, balloon angioplasty 09/01/23
PIPE FITTER Eliquis resumed
# Livedo reticularis
vascular following; no acute issues from vascular standpoint
# essential HTN
started on toprol.
# anxiety/panic attacks
cont ativan
# hypothyroidism
levothyroxine continued
# ex Smoker
# Mixed hyperlipidemia
statin to cont if LFT normalize
# Moyamoya syndrome, 3 surgical interventions
Per patient discussion with her primary neurologist who stated okay for blood pressure to be lowered further if needed and to be monitored neurologically.
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
gabapentin renally dosed
#valvular cancer s/p partial vulvectomy
#DVT prophylaxis - Eliquis
#CODE status -full code
Dispo-home once ready. Refusing SNF. Pending OP HD unit set up.
d/w with spouse at bedside in details
Anticipated Discharge: Within 24 hours
Subjective/Interval History
-
Date of Service: October 13, 2023
sitting in chair
does not want modafinil and bipap
had bm yesterday and mild urinary discomfort
Objective Data
-
Vital Signs:
Vital Signs
Temp Pulse Resp BP Pulse Ox
98.1 F 72 14 144/84 96
10/13/23 07:15 10/13/23 07:50 10/13/23 07:50 10/13/23 07:15 10/13/23 07:50
I&O
10/12/23 10/13/23 10/14/23
06:59 06:59 06:59
Intake Total 1200 / 1200 840 / 840
Output Total 1300 / 1300 450 / 450
Balance -100 / -100 390 / 390
Data Reviewed
-
Total Time Spent with Patient (in minutes): 55
[2023-10-13] MEDS: PROVIGIL PO ×2 (09:13→09:25)
[2023-10-13] MEDS: VITAMIN D3 (cholecalciferol) 50 MCG PO (09:14)
[2023-10-13] MEDS: PROTONIX 40 MG PO ×2 (09:14→20:35)
[2023-10-13] MEDS: LOW STRENGTH ASPIRIN 81 MG PO (09:14)
[2023-10-13] MEDS: SENOKOT-S PO ×3 (09:14→20:36)
[2023-10-13] MEDS: ELIQUIS 5 MG PO ×2 (09:14→20:35)
[2023-10-13] MEDS: DEMADEX 40 MG PO (09:14)
--- NOTE | 2023-10-13 10:01 | WOUNDNOTE ---
R 4TH AND 5TH TOES
--- NOTE | 2023-10-13 10:01 | WOUNDNOTE ---
R 4TH AND 5TH TOE DORSAL
--- NOTE | 2023-10-13 10:02 | WOUNDNOTE ---
WON RN NOTE: Patient admitted 09/21/23 with unstable angina, COPD,PVD. See PMH for extensive history. Reviewed vascular's last note regarding toes, confirmed baseline is mottled, palpable pulses. Patient and concerned that R 4th and 5th toe
more painful when getting dialysis and wondering if vascular has any input for intervention. Patient states gabapentin helps but pain increases only during dialysis. TT pictures to Dr. Portillo and NARDA Turner, no new changes per vascular. Patient to
follow up with them at scheduled apt with Dr. Portillo on 10/27 and to follow up with a Solar Maintenance Technician. Regarding pain, encouraged patient to ask hospitalist for pain medication to take during dialysis. No drainage from toes, very sensitive with anything
touching toes, declined use of dry dressing. Heels intact.Left open to air, uses slipper socks when ambulating. Will sign off, RN updated on the above.
--- NOTE | 2023-10-13 10:38 | PTCARENOTE ---
Patient stating she did not wear BIPAP overnight last night, states she is refusing to wear it tonight and moving forward, says 'I'm done with it.' made aware, no new orders at this time.
[2023-10-13 10:54] LABS: Urine Albumin 2+ (Neg - Trace); Urine Bilirubin 1+ (Negative); Urine Character Slightly Cloudy (Clear); Urine Color Yellow; Urine Glucose Negative (Negative); Urine Ketone Negative (Negative); Urine Leukocyte 2+ (Negative); Urine Nitrite Negative (Negative); Urine Occult Blood 4+ (Negative); Urine Specific Gravity 1.015 (<1.030); Urine Urobilinogen Negative (Neg - 1+)
[2023-10-13 11:20] VITALS: BP 124/66
[2023-10-13 11:27] LABS: Urine Bacteria Few (Negative); Urine White Cell 16-20 /HPF (0-5)
--- NOTE | 2023-10-13 11:57 | W.PN.NEPH.PH ---
Today's Communication / Plan
-
HD tomorrow
Assessment/Plan
-
Impression:
Chest pain shortness of breath: Congestive heart failure decompensation/non-ST elevation MA
Chronic kidney disease stage IV with baseline creatinine of 2
Hypertension urgency
Aorta iliac revascularization following potential atheroembolism August 2023
COPD
Moyamoya disease/complex peripheral arterial disease
Intubation
echo EF 40-45%, WMA
Plan:
d/w patient
accepted at [facility] 10/19 TTS
will diayze thu
continue torsemide 40mg daily.
tunneled HD cath in place
replete K
no apparent renal recovery currently
-
-
Date of Service: October 13, 2023
CC / HPI / ROS
-
Chief Complaint:
CKD
History of Present Illness:
SUAD/Cr now on HD
BP stable
some UOP with torsemide
Review of Systems:
off supplemental O2
feels good
no CP
Labs
-
Labs:
WBC 15.7 10^3/uL (4.8-10.8) H 10/12/23 05:46
RBC 2.99 10^6/uL (4.20-5.40) L 10/12/23 05:46
Hgb 9.3 g/dL (12.0-16.0) L 10/12/23 05:46
Hct 29.3 % (37.0-47.0) L 10/12/23 05:46
Plt Count 158 10^3/uL (130-400) 10/12/23 05:46
Sodium 136 mmol/L (135-145) 10/12/23 05:46
Potassium 3.5 mmol/L (3.5-5.1) 07/01/24 05:46
Chloride 100 mmol/L (98-107) 10/12/23 05:46
Carbon Dioxide 24 mmol/L (22-30) 10/12/23 05:46
BUN 68 mg/dl (7-17) H 10/12/23 05:46
Creatinine 2.6 mg/dL (0.6-1.0) H 10/12/23 05:46
eGFR 20.11 10/12/23 05:46
Glucose 103 mg/dl (70-99) H 10/12/23 05:46
Calcium 8.5 mg/dl (8.4-10.2) 10/12/23 05:46
Phosphorus 5.0 mg/dl (2.5-4.5) H 09/21/23 19:10
Vck-O-Dtpdofyiynp Pept > 91840 pg/ml 09/29/23 04:09
Albumin 3.9 g/dl (3.5-5.0) 10/12/23 05:46
Physical Exam
-
Vital Signs:
Vital Signs
Temp Pulse Resp BP Pulse Ox
98.7 F 83 16 142/122 98
10/13/23 11:20 10/13/23 11:20 10/13/23 11:20 10/13/23 11:20 10/13/23 11:20
Cardiovascular:: Regular rate and rhythm
Respiratory:: Bilateral: Coarse
Lung Excursion:: Normal
Abdomen:: Nontender and Soft
Bowel Sounds:: Normal
Extremity Edema:: None: Bilateral:
[2023-10-13 13:10] VITALS: BP 122/70; PULSE 84
--- NOTE | 2023-10-13 15:07 | CM ---
Addendum entered by Evelin Duque 10/13/23 16:52:
Dr. CUMMINS SPOKE WITH SHOWER ENCLOSURE INSTALLER AT [facility] AND DISCUSSED WHY [facility] IS NOT ACCEPTING PATIENT'S INSURANCE. SHOWER ENCLOSURE INSTALLER CALLED [facility] STAFF AND INSTRUCTED TO RE-EVALUATE INSURANCE STATUS THIS IS AN INSURANCE THAT THEY DO ACCEPT.
RECEIVED CALL FROM DORETHA IN [facility] ADMISSIONS AND HE IS MANAGING CASE [id number]. ALL CALLS SHOULD GO THROUGH HIM. CURRENTLY THEY ARE VERIFYING INSURANCE.
DR. CUMMINS AND FAMILY WANT PATIENT AT [facility]. THEY DO HAVE A M-W-F CELLARS SUPERVISOR CHAIR (Pt. preference).
THIS CM HAS NOT CANCELLED THE [facility] CHAIR UNTIL [facility] HAS APPROVED AND CONFIRMED CHAIR.
Original Note:
Patient has been accepted by [facility] for outpatient HD. Clinic is [facility] in [place] with chair days and time on @ 6:45am. First session is on Thursday10/20/23 @ 6:30AM. They are unable to accept on 10/15/23 due to the
holiday and they do not accept new patients on Saturdays. Dr. Cummins notified. He will adjust patient's HD schedule on Thursday10/17/23. Patient can be discharge after HD on 10/17/23 and began HD at [place] on Thursday10/20/23. Patient and
notified and have Admissions letter with details. They expressed understanding of above.
[2023-10-13 15:20] VITALS: BP 130/66
[2023-10-13] MEDS: TOPROL XL 25 MG PO (17:00)
[2023-10-13] MEDS: LIPITOR 80 MG PO (17:00)
[2023-10-13] MEDS: XANAX 0.25 MG PO (20:35)
[2023-10-13] MEDS: LIDOCAINE 4% PATCH TOPICAL (21:24)
[2023-10-13] MEDS: TYLENOL 500 MG PO (22:46)
[2023-10-13 23:23] VITALS: BP 146/67
--- NOTE | 2023-10-14 00:26 | W.PN.UPDATE ---
Update Note
Progress Note Update
Nurse reporting patient with complaint of headache 12/21, and sensation of edema at craniectomy site with associated right cheek numbness.
Plan:
- STAT Head CT - 'compared to 10/08/2023, no significant interval change, stable postoperative craniotomy in the left subjacent encephalomalacia.'
--- NOTE | 2023-10-14 01:07 | PTCARENOTE ---
At approximately 2245, patient complaining of 3/10 headache on L side of head. After administering patient's PRN Tylenol, patient complaining of a 9/10 headache on left side of head. Patient also complaining of feeling of edema at left sided prior
craniectomy site. Patient complaining of numbness on right side of face with some difficulty speaking. Patient noted with mild dysarthria. VSS as documented. MEDICAL RESEARCH TECH notified of findings. Stat head CT ordered and taken.
[2023-10-14] MEDS: TYLENOL 500 MG PO (03:39)
[2023-10-14] MEDS: SYNTHROID 100 MCG PO (05:10)
[2023-10-14 05:35] VITALS: BMI 19.8
[2023-10-14 06:43] LABS: Hematocrit 34.9 % (37.0-47.0); Hemoglobin 11.2 g/dL (12.0-16.0)
[2023-10-14 06:56] LABS: Blood Urea Nitrogen 50 mg/dl (7-17); Calcium 8.5 mg/dl (8.4-10.2); Carbon Dioxide 25 mmol/L (22-30); Chloride 95 mmol/L (98-107); Estimated Creatinine Clearance 23 ml/min; Glucose 114 mg/dl (70-99); Potassium 3.1 mmol/L (3.5-5.1); Sodium 133 mmol/L (135-145)
[2023-10-14 07:20] VITALS: BP 148/82
[2023-10-14] MEDS: PULMICORT INH (07:43)
[2023-10-14] MEDS: LOW STRENGTH ASPIRIN 81 MG PO (07:58)
[2023-10-14] MEDS: PROTONIX 40 MG PO (07:58)
[2023-10-14] MEDS: VITAMIN D3 (cholecalciferol) 50 MCG PO (07:59)
[2023-10-14] MEDS: DEMADEX 40 MG PO (07:59)
[2023-10-14] MEDS: ELIQUIS 5 MG PO (07:59)
[2023-10-14] MEDS: SENOKOT-S 1 TABLET PO (07:59)
--- NOTE | 2023-10-14 10:14 | W.PN.HOSP.TC ---
Today's Communication/Plan
-
nystatin
HD per nephro
reduce toprol
Ongoing OP HD set up pending
Assessment / Plan
Assessment / Plan
63-year-old female with past medical history of PAD with recent aortoiliac stent, CAD, CKD IV, moyamoya syndrome, hypothyroidism, hyperlipidemia, hypertension, ovarian cancer, TIA, COPD, brain bypass x 3; came to the hospital with chest pain and
shortness of breath. EKG with new ST depressions. Initial troponin 0.215 with a proBNP greater than 27,000, creatinine 2.0 (baseline). She was taken urgently to cardiac cath complicated by acute resp failure requiring intubation; shown to have
severely elevated filling pressures. No new CAD. She required intubation, admitted to ICU with Hines-Yovany catheter placed, IV Bumex gtt.
A/P:
# Episode of change in MS - She was not herself, word finding difficulty noted, she had right left temporal lobe area headache. She has moyamoya disease with frequent TIAs per .
Currently nonfocal neurologically.
CT of the head was negative for any acute finding.
EEG showed no obvious seizures.
She is on aspirin and Eliquis, to continue and follow-up for any further changes.
Reduce toprol dose to allow for mild elevated bp
Resolved.
# Toxic metabolic encephalopathy likely secondary to uremia versus polypharmacy. This was earlier in admission, resolved
.
# Acute kidney injury on CKD stage IIIb
Baseline SCr ~2. Did received contrast on admission.
creatinine got progressively worse. BUN severely elevated
IV Lasix discontinued and started on Lasix infusion.
syed to monitor urinary output. wt remains elevated.
s/p HD catheter placement on 10/04 and started on HD subsequently afterwards.
on torsemide 40mg daily with good urinary output.
DC syed.
Epo per nephro
cw HD per renal-MWF schedule
# Acute hypoxemic respiratory failure secondary pulmonary edema requiring intubation mechanical ventilation, elevated filling pressures on the catheterization
# Hypertensive emergency with flash pulmonary edema
# Acute on chronic congestive heart failure with preserved ejection fraction
# Non-LA troponin elevation
cardiac cath without significant CAD; + elevated pressures
required intubation in optical lab technician 09/20; s/p extubation on 09/21
Bumex gtt stopped 09/23
Lasix uptitrated to 60 mg twice daily to daily and subsequently started on Lasix infusion
Hines-Yovany catheter now out
Per patient discussion with her primary neurologist who stated okay for blood pressure to be lowered further if needed and to be monitored neurologic
continue aspirin/statin, resume statin as LFTs improved.
Plan for of goal-directed medical therapy pending stabilization of creatinine probably as outpatient.
CXR on 09/30 am-reviewed bilateral pleural effusion. Stable. Cardiomegaly is stable.
Resolved hypoxia -remains on RA
#Constipation
started senokot
resolved
#Urinary discomfort
probably bladder/urethral irritation with prolonged syed catheter
Check UA
#Hypokalemia
replete/monitor
#Oral thrush due to budenoside
nystatin ordered
# Suspected mild Acute COPD exacerbation
Continue bronchodilators. Severe COPD recent PFTs.
Not severely wheezing or bronchospastic. Completed steroids taper.
# Nausea with dyspepsia symptoms
Added PPI and maalox. Patient on steroid taper as well as aspirin. Improved appetite.
# Leukocytosis likely secondary to high-dose steroids but chronicity noted from prior labs results
Afebrile.
# Dyspnea likely multifactorial CHF and COPD
Plan as above
improving
exacerbated at times due to severe anxiety/panic attacks
BiPAP nightly and as needed-Refusing it further.
# moderate pericholecystic edema at the gallbladder
AST/ALT elevated but could be due to congestion
No severe RUQ pain- d/w with spouse who also agreed
Abdominal ultrasound-Trace gallbladder sludge. Small gallbladder stone versus polyp. Mild gallbladder wall thickening. Negative sonographic Hurt's sign. No findings to suggest biliary tract dilatation.
Continue to monitor for diet tolerance. Monitor for diet tolerance
# Normocytic anemia
No active bleeding
Continue to trend, stable
iron studies - anemia inflammation
# Severe occlusive atherosclerotic disease of iliac arteries
bilaterally s/p diagnostic arteriogram, AFX stent graft placement, balloon angioplasty 09/01/23
KITCHEN AIDE Eliquis resumed
# Livedo reticularis
vascular following; no acute issues from vascular standpoint
# essential HTN
started on toprol.
# anxiety/panic attacks
cont ativan
# hypothyroidism
levothyroxine continued
# ex Smoker
# Mixed hyperlipidemia
statin to cont if LFT normalize
# Moyamoya syndrome, 3 surgical interventions
Per patient discussion with her primary neurologist who stated okay for blood pressure to be lowered further if needed and to be monitored neurologically.
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
gabapentin renally dosed
#valvular cancer s/p partial vulvectomy
#DVT prophylaxis - Eliquis
#CODE status -full code
Dispo-home once ready. Refusing SNF. Pending OP HD unit set up.
d/w with spouse at bedside in details
Anticipated Discharge: > 48 hours
Subjective/Interval History
-
Date of Service: October 14, 2023
States of thrush
headache resolved
Objective Data
-
Labs:
Laboratory Results
10/14/23
05:47
Hgb 11.2 L D
Hct 34.9 L
Sodium 133 L
Potassium 3.1 L
Chloride 95 L
Carbon Dioxide 25
BUN 50 H
Creatinine 2.3 H
Glucose 114 H
Calcium 8.5
Vital Signs:
Vital Signs
Temp Pulse Resp BP Pulse Ox
97.1 F 75 16 148/82 97
10/14/23 07:20 10/14/23 07:59 10/14/23 07:20 10/14/23 07:59 10/14/23 07:20
I&O
10/13/23 10/14/23 10/15/23
06:59 06:59 06:59
Intake Total 840 / 840 1320 / 1320
Output Total 450 / 450
Balance 390 / 390 1320 / 1320
Physical Exam
-
General: Well Developed, Well Nourished, No Apparent Distress, Comfortable and Conversant
HEENT: Atraumatic and Other (erythema on tongue noted )
Respiratory: Clear to Auscultation and Non Labored Respirations; Negative Accessory Resp Muscle Use
Cardiac: Regular Rhythm and S1/S2
GI: Soft, Nontender, Nondistended and Normal Bowel Sounds
Rectal: Deferred by Provider
Genito-urinary: Negative Syed
Neuro: Awake, Alert, AO x 3 and No Motor Deficits
Psych: Calm and Intact Judgement/Insight
[2023-10-14] MEDS: XANAX 0.25 MG PO (11:18)
[2023-10-14] MEDS: MYCOSTATIN ORAL SUSPENSION 5 ML PO ×3 (11:18→17:39)
[2023-10-14] MEDS: NEURONTIN 300 MG PO (11:18)
[2023-10-14] MEDS: KCL 20 MEQ PO (11:19)
[2023-10-14 11:23] VITALS: BP 127/76; PULSE 75; O2SAT 98
[2023-10-14 11:27] VITALS: BP 127/76; PULSE 73; O2SAT 98
[2023-10-14] MEDS: HEPARIN 500 UNITS IV ×2 (12:55→13:55)
--- NOTE | 2023-10-14 13:26 | CM ---
Addendum entered by Evelin Gomez 10/14/23 14:30:
Plan: discharge to home today with resumption of Home Health Services with [facility]
will transport home
Outpatient HD @ [facility]; Appointment Thursday @ 0500
Addendum entered by Evelin Gomez 10/14/23 14:01:
Per 10/13/2023 Case Management Note, DR. CUMMINS AND FAMILY WANT PATIENT AT [facility]. THEY DO HAVE A M-W-F SENIOR WEB DESIGNER CHAIR
Original Note:
Met with patient and her at the bedside
Per Max @ [facility], insurance verification is still pending; but that they accept patient's insurance
Ciso was instructed to tell patient to [facility] [place] [facility]
--- NOTE | 2023-10-14 13:53 | W.PN.NEPH.HD ---
Assessment
-
Seen on HD. no complaints. VSS, access ok
has OP HD spot setup.
dc planning per primary team
Progress Note - Hemodialysis
-
Date of Service: October 14, 2023
Duration: 30 minutes and 3 hours
Potassium Bath: 4
Calcium Bath: 2.5
Opti-Dialyzer: 160
Ultrafiltration: Other (0.5kg)
Blood Flow: 400
Dialysate Flow: 600
Heparin: 500x2
EPO: 4000 units
--- NOTE | 2023-10-14 14:17 | W.DCSUMMARY ---
Discharge Summary
Discharge Data
Date of Admission: 09/21/23
Date of Discharge: 10/14/23
-
Pending Results: No
Hospital Course
63-year-old female with past medical history of PAD with recent aortoiliac stent, CAD, CKD IV, moyamoya syndrome, hypothyroidism, hyperlipidemia, hypertension, ovarian cancer, TIA, COPD, brain bypass x 3; came to the hospital with chest pain and
shortness of breath. EKG with new ST depressions. Initial troponin 0.215 with a proBNP greater than 27,000, creatinine 2.0 (baseline). She was taken urgently to cardiac cath complicated by acute resp failure requiring intubation; shown to have
severely elevated filling pressures. No new CAD. She required intubation, admitted to ICU with Anthony-Yovany catheter placed, IV Bumex gtt. status post IVC patient was eventually extubated. Patient was transition off Bumex drip to IV Lasix. Patient
with elevated creatinine level and nephrology was consulted. Patient was transferred out of ICU to medical floors. Patient with worsening of creatinine and diuretics were intermittently held. Patient continued with episode of severe shortness of
breath. Patient creatinine continue to trend up. Lasix was further challenged with aggressive dosing. Chest x-ray with pulmonary edema. Patient was also started on IV steroids per cardiology and pulmonary. There was suspicion of mild acute COPD
exacerbation and bronchodilator was also started in addition to IV steroids. Patient IV steroids were then transition to p.o. steroid taper which she completed in the hospital. Patient with episode of severe shortness of breath and was transferred
to IMU. Patient with persistent shortness of breath and chest difficulty. Patient creatinine continue to worsen. Lasix high-dose was managed by nephrology. Eventually patient was transitioned to Lasix infusion. Portillo catheter was placed for
urinary output which was eventually taken out and patient was voiding without difficulty. Patient has some bladder discomfort post Portillo catheter removal and UA were checked and found to be negative. Patient creatinine continue to trend up without
much improvement in urinary output. Patient also with mild uremic symptoms. Finally patient received HD catheter placement and was started on hemodialysis. Patient with also episode of toxic metabolic encephalopathy which was seen multifactorial
and neurology was consulted. EEG was performed. Patient was started on modafinil per neurology which was eventually discontinued. Post hemodialysis patient with improvement in mentation and appetite. Patient also had abnormal AST and ALT which
was seen secondary to vascular congestion. Abdominal ultrasound with trace gallbladder sludge. Small Bladder stone versus polyp. Negative sonographic Hurt sign. Mild gallbladder wall thickening. No findings to bili tract dilatation. Patient
was tolerating diet without any difficulty of nausea or vomiting. Patient was tolerating diet. Goal-directed medical therapy was limited due to CKD and hypertension. Toprol dose was started and was also decreased due to intermittent episode of
TIA due to her history of moyamoya disease. Also with constipation which resolved with bowel regimen. Patient was eval by PT and OT recommending SNF which patient and spouse refused. Patient will be discharged to home with outpatient HD to be
started on Thursday.
Discharge Plan
-
Patient Disposition: Home with Home Care
Discharge Diagnosis/Procedures: Acute metabolic encephalopathy likely secondary to uremia versus polypharmacy
TIA with history of Moyamoya syndrome, 3 surgical interventions
Acute hypoxic respiratory failure
Pulmonary edema
Intubation with mechanical ventilation status post extubation
Hypertensive emergency with flash pulmonary edema
Acute on chronic heart failure exacerbation
Nonischemic myocardial injury
Constipation
Urinary retention
Hypokalemia
Mild acute COPD exacerbation
Nausea
Leukocytosis
Dyspnea
Moderate pericholecystic edema of the gallbladder
Condition: Fair
Diet: 2 Gram Sodium and Restrict fluids to 48 oz
Activity: With assistance and As tolerated
Driving Restrictions: As prior to admission
Other Services: VN
Referrals:
Tyrone Choudhury MD [Active] - in one to two weeks (Can see a [facility] in next 1-2 weeks and then she should keep her appt with me on 11/03/2023 at 1:30 PM)
Tony Portillo III, MD [Active] - 10/28/23 (call to confirm timing)
Heri Huston MD [Family Provider] - in less than 1 week
Janie Martinez MD [Active] - None
Prescriptions:
New
nystatin 100,000 unit/mL Suspension
5 ml PO QID 10 Days Qty: 200 0RF
torsemide 20 mg Tablet
40 mg PO DAILY 30 Days Qty: 60 0RF
pantoprazole 40 mg Tablet,Delayed Release (Dr/Ec)
40 mg PO DAILY 30 Days Qty: 30 0RF
metoprolol succinate 25 mg Tablet Extended Release 24 Hr
12.5 mg PO QPM 30 Days Qty: 15 0RF
Continued
atorvastatin 80 mg Tablet
80 mg PO DAILY
levothyroxine 100 mcg Tablet
100 mcg PO DAILY
alprazolam 0.25 mg Tablet
0.25 mg PO BIDPRN PRN (Reason: anxiety)
duloxetine 30 mg Capsule,Delayed Release(Dr/Ec)
30 mg PO HS
cholecalciferol (vitamin D3) [Vitamin D3] 50 mcg (2,000 unit) Tablet
50 mcg PO DAILY
aspirin 81 mg Capsule
81 mg PO DAILY
Eliquis 5 mg Tablet
5 mg PO BID Qty: 180 0RF
albuterol sulfate [ProAir HFA] 90 mcg/actuation Hfa Aerosol Inhaler
2 puff INHALATION R Q6HPRN PRN (Reason: sob)
Changed
gabapentin 300 mg capsule
300 mg PO MOWEFR PRN (Reason: nerve pain) Qty: 0 0RF
Discontinued
diltiazem HCl [Cardizem CD] 180 mg Capsule,Extended Release 24hr
180 mg PO HS
Patient Comments:
Patient states she is taking 180 mg from march, but has refilled 240 mg for the last year.
Discharge Orders:
Discharge Patient (As Directed); Ordered 10/14/23
Ordered By: Tuan Nuñez
Discharge Date and Time
Print Language: MALAYSIAN
[2023-10-14] MEDS: RETACRIT 4000 UNITS IV (14:38)
[2023-10-14 15:10] VITALS: BP 143/88
--- NOTE | 2023-10-14 16:43 | VNURNOTE ---
[facility] resumption of care updated in [facility] after review of chart.
[2023-10-14] MEDS: HEPARIN 3900 UNITS INTRACATH (17:08)
[2023-10-14] MEDS: TOPROL XL 12.5 MG PO (17:39)
[2023-10-14] MEDS: LIPITOR 80 MG PO (17:39)
--- NOTE | 2023-10-14 18:15 | PTCARENOTE ---
Patient discharged home with VN. Patient with occasional blood when wiping after urination, denies burning/irritation upon urination, urine cx negative; MD made aware, stated patient still okay to go home, patient states she is ready to go home.
This RN reviewed discharge instructions with patient and patient's spouse, both verbalized understanding. Patient being discharged after HD session this afternoon, to receive next HD session at outpatient facility on Thursday10/16/23. Patient dressed
and gathered belongings in room with assistance of spouse, patient being transported home by spouse. Patient taken down [facility] via wheelchair and staff escort.
--- NOTE | 2023-10-16 09:13 | CM ---
[facility] health coordinator, Mamadou, as well as Laith at the [facility] have been notified to cancel patient's chair. She will not be going to [facility].
== END 2023-10-14 18:22 | disposition home health service (06) | DRG 286 ==
LOC: 2 NORTH 18:32
PROVIDERS: Emergency Medicine; Internal Medicine; Internal Medicine Cardiovascular Disease; Internal Medicine Critical Care Medicine; Nurse Practitioner; Nurse Practitioner Primary Care; Radiology Diagnostic Radiology; Registered Nurse; Specialist; Student in an Organized Health Care Education/Training Program; ADMITTING PHYSICIAN Internal Medicine; ATTENDING PHYSICIAN Hospitalist; CONSULT PHYSICIAN Internal Medicine Cardiovascular Disease; CONSULT PHYSICIAN Internal Medicine Critical Care Medicine; CONSULT PHYSICIAN Psychiatry & Neurology Neurology; CONSULT PHYSICIAN Specialist; EMERGENCY PHYSICIAN Emergency Medicine; FAMILY PHYSICIAN Internal Medicine
PROC: 4A023N8 Measurement of Cardiac Sampling and Pressure, Bilateral, Percutaneous Approach (ICD-10-PCS; 2023-09-21)
PROC: 5A1935Z Respiratory Ventilation, Less than 24 Consecutive Hours (ICD-10-PCS; 2023-09-21)
PROC: B2111ZZ Fluoroscopy of Multiple Coronary Arteries using Low Osmolar Contrast (ICD-10-PCS; 2023-09-21)
PROC: 0BH17EZ Insertion of Endotracheal Airway into Trachea, Via Natural or Artificial Opening (ICD-10-PCS; 2023-09-21)
PROC: 5A09357 Assistance with Respiratory Ventilation, Less than 24 Consecutive Hours, Continuous Positive Airway Pressure (ICD-10-PCS; 2023-09-22)
PROC: 5A1D70Z Performance of Urinary Filtration, Intermittent, Less than 6 Hours Per Day (ICD-10-PCS; 2023-10-05)
PROC: 0JH63XZ Insertion of Tunneled Vascular Access Device into Chest Subcutaneous Tissue and Fascia, Percutaneous Approach (ICD-10-PCS; 2023-10-05)
PROC: 02H633Z Insertion of Infusion Device into Right Atrium, Percutaneous Approach (ICD-10-PCS; 2023-10-05)
DX: I13.0 Hypertensive heart and chronic kidney disease with heart failure and stage 1 through stage 4 chronic kidney disease, or unspecified chronic kidney disease (principal); G92.8 Other toxic encephalopathy; I50.33 Acute on chronic diastolic (congestive) heart failure; J96.01 Acute respiratory failure with hypoxia; J69.0 Pneumonitis due to inhalation of food and vomit; R57.0 Cardiogenic shock; N18.4 Chronic kidney disease, stage 4 (severe); N17.9 Acute kidney failure, unspecified; I67.5 Moyamoya disease; I16.1 Hypertensive emergency; J44.1 Chronic obstructive pulmonary disease with (acute) exacerbation; R18.8 Other ascites; E87.1 Hypo-osmolality and hyponatremia; B37.0 Candidal stomatitis; I25.10 Atherosclerotic heart disease of native coronary artery without angina pectoris; E03.9 Hypothyroidism, unspecified; Z66 Do not resuscitate; E78.2 Mixed hyperlipidemia; D63.1 Anemia in chronic kidney disease; E87.6 Hypokalemia; I70.203 Unspecified atherosclerosis of native arteries of extremities, bilateral legs; F41.9 Anxiety disorder, unspecified; D72.829 Elevated white blood cell count, unspecified; K59.00 Constipation, unspecified; I5A Non-ischemic myocardial injury (non-traumatic); I70.0 Atherosclerosis of aorta; G89.29 Other chronic pain; G57.81 Other specified mononeuropathies of right lower limb; I25.82 Chronic total occlusion of coronary artery; I42.8 Other cardiomyopathies; R33.9 Retention of urine, unspecified; R23.1 Pallor; Z79.01 Long term (current) use of anticoagulants; Z79.82 Long term (current) use of aspirin; Z79.899 Other long term (current) drug therapy; Z85.43 Personal history of malignant neoplasm of ovary; Z85.44 Personal history of malignant neoplasm of other female genital organs; Z85.828 Personal history of other malignant neoplasm of skin; Z86.73 Personal history of transient ischemic attack (TIA), and cerebral infarction without residual deficits; Z87.891 Personal history of nicotine dependence; Z95.820 Peripheral vascular angioplasty status with implants and grafts
CPT/HCPCS: 93308; 36558; 36600; 70450; 71045; 71046; 71250; 74176; 76604; 76705; 76937; 77001; 80048; 80053; 80061; 81003; 81015; 82248; 82330; 82607; 82728; 82805; 82962; 83036; 83540; 83550; 83735; 83880; 84100; 84132; 84302; 84484; 85014; 85018; 85025; 85027; 85610; 85730; 86704; 86706; 86803; 87086; 87340; 93005; 93321; 93325; 93460; 94002; 94003; 94640; 94660; 95816; 96374; 97110; 97116; 97163; 97167; 97530; 97535; 99152; 99153; 99285; C1750; C1769; C1894; G0257; J2916; P9047; Q5106; Q9967

== ENCOUNTER → 2023-10-21 10:04 | Outpatient (REF) | payer OTHER, SELFPAY | LOC: RAD 10:04 | PROVIDERS: ATTENDING PHYSICIAN Registered Nurse; FAMILY PHYSICIAN Internal Medicine | DX: I70.0 Atherosclerosis of aorta (principal); I77.1 Stricture of artery; I77.9 Disorder of arteries and arterioles, unspecified | CPT/HCPCS: 93922; 93925; 93978 ==

== ENCOUNTER → 2023-11-05 13:34 | Outpatient (REF) | payer OTHER, SELFPAY | LOC: RAD 13:34 | PROVIDERS: ATTENDING PHYSICIAN Internal Medicine Critical Care Medicine; FAMILY PHYSICIAN Internal Medicine | DX: R06.09 Other forms of dyspnea (principal) | CPT/HCPCS: 71046 ==

== ENCOUNTER 2023-11-09 06:08 | Emergency (ER) | payer OTHER, SELFPAY ==
[2023-11-09 06:20] VITALS: BP 150/96
--- NOTE | 2023-11-09 06:40 | ED.GENMED ---
History of Present Illness
General
Chief Complaint: Abdominal Symptoms
Source: patient
Exam Limitations: none
Time Seen by Provider: 11/09/23 06:28
Nursing documentation reviewed up to this point in time: agreed with
History of Present Illness
History of Present Illness:
Patient with history of end-stage renal disease on hemodialysis (M,W,F), started on October 16, 2023, presents to ED secondary to sudden onset of nausea sensation upon waking up this morning. Patient went to her dialysis center and proceeded to have
multiple vomiting episodes as well as nonbloody diarrhea. Subsequently, patient was transferred to ED for further evaluation and treatment. Patient does report having received full dialysis session on Thursday. Denies fever or chills. Denies
abdominal pain. Denies recent illness. Patient states that she was at her baseline health yesterday when she went to sleep. Denies consuming any meals that are of concern. Denies recent travel.
Past History
Past History
ED Past Medical History: CAD, Cancer (ovarian ca, vulvular ca, basal cell ca), COPD and CVA
ED Past Surgical History: Brain and Other (aortic stent August 2023)
Social History
Tobacco: Former smoker
Personal:
Living: with family
Review of Systems
Review of Systems
Allergies reviewed?: Yes
All Other Systems: ROS reviewed and negative except as documented in HPI and ROS
Constitutional: Reports no symptoms
Respiratory: Reports trouble breathing
ABD/GI: Reports abdominal pain, nausea, vomiting and diarrhea
: Reports no symptoms
Musculoskeletal: Reports no symptoms
Skin: Reports no symptoms
Neurological: Reports weakness
Phy Exam
Physical Exam
Physical Exam:
Physical Exam
General: mild distress, weak appearing. afebrile
Head: nc/at. eomi
Neck: supple. no meningeal signs.
Heart: s1/s2 regular rate and rhythm, no murmur. equal radial pulses.
Lungs: no acute respiratory distress. clear bilaterally
Abdomen: normal bowel sounds. not tender. no distention
Neuro: alert and oriented. no focal neurological deficits
Skin: no rash
Psychiatric: well kept. interactive and cooperative
Extremities: no edema. no calf tenderness.
Course
Orders/Labs/Results
Orders:
Orders
11/09/23 06:37
CR Chest Portable - 1 View Urgent
Comment:
Reason For Exam: weakness/vomiting
Reason Study Needs to be Portable: Patient Unstable
11/09/23 06:39
0.9% Sodium Chloride 250 ml [Nss] 250 ml IV BOLUS
11/09/23 06:52
Complete Blood Count/With Diff Urgent
11/09/23 07:26
Comprehensive Metabolic Panel Urgent
NT-proBNP Urgent
11/09/23 07:29
Ondansetron Injectable [Zofran] 4 mg IV NOW STA
11/09/23 09:56
Ondansetron Orally Disint [Zofran Odt (Orally Disintegrating)] 4 mg PO NOW STA
Abnormal Lab Results
11/09/23 11/09/23
06:52 07:26
WBC 18.5 H 10^3/uL
(4.8-10.8)
RBC 3.73 L 10^6/uL
(4.20-5.40)
Hgb 11.3 L g/dL
(12.0-16.0)
Hct 34.4 L %
(37.0-47.0)
MCHC 32.8 L g/dL
(33.0-37.0)
RDW 20.0 H %
(11.5-14.5)
MPV 10.6 H fL
(7.4-10.4)
Abs Immat Gran (auto) 0.3 H 10^3/uL
(0-0.05)
Absolute Neuts (auto) 13.4 H 10^3/uL
(1.4-6.5)
Absolute Lymphs (auto) 3.7 H 10^3/uL
(1.2-3.4)
Absolute Monos (auto) 0.9 H 10^3/uL
(0.1-0.6)
Immature Gran % 1.6 H %
(0-0.5)
Lymphocytes % 20.2 L %
(20.5-51.1)
Potassium 3.2 L mmol/L
(3.5-5.1)
Chloride 97 L mmol/L
(98-107)
BUN 58 H mg/dl
(7-17)
Creatinine 3.7 H mg/dL
(0.6-1.0)
Glucose 152 H mg/dl
(70-99)
11/09/23 06:52
11/09/23 07:26
Vital Signs
Initial and Last Documented VS:
Initial Vital Signs
Temp Pulse Resp BP Pulse Ox
97.8 F 88 24 150/96 97
11/09/23 06:20 11/09/23 06:20 11/09/23 06:20 11/09/23 06:20 11/09/23 06:20
Last Documented Vital Signs
Temp Pulse Resp BP Pulse Ox
97.8 F 76 18 123/77 96
11/09/23 06:20 11/09/23 10:55 11/09/23 10:55 11/09/23 10:55 11/09/23 10:55
MDM/Problems Addressed
MDM/Problems Addressed:
Patient reports improvement in symptoms after treatment in ED, without any further vomiting episodes. Patient remains afebrile and hemodynamically stable.
Discussed treatment options with patient, including potential observation in the hospital. However, at this time, with improvement, patient feels comfortable going home, but will return with worsening symptoms.
Blood work, including potassium of 3.2, discussed with on-call medical services manager, Dr. Angeles. He does not recommend treating hypokalemia acutely at this time. Recommends that patient call dialysis center upon discharge, to reschedule her dialysis
session tomorrow morning.
Patient and spouse expressed understanding at time of discharge.
*Critical Care Note
Total Time (30-74mins, 75-104mins- exclusive of procedures): Not Applicable
ED Attending Note
-
Portions of this chart may have been created with voice recognition software.� Occasional wrong word or��sound alike� substitutions may have occurred due to the inherent limitations of voice recognition software.
Discharge Plan
Departure
Patient Disposition: Home (Routine Discharge)
Date of Disposition: 11/09/23
Time of Disposition: 10:32
Patient with high blood pressure during this ER visit?: Yes
Condition: Good
Discharge Problem:
Gastroenteritis
Instructions: Viral gastroenteritis in adults
Prescriptions:
New
ondansetron 4 mg Tablet,Disintegrating
4 mg PO TIDPRN PRN (Reason: nausea/vomiting) Qty: 12 0RF
No Action
atorvastatin 80 mg Tablet
80 mg PO DAILY
levothyroxine 100 mcg Tablet
100 mcg PO DAILY
alprazolam 0.25 mg Tablet
0.25 mg PO BIDPRN PRN (Reason: anxiety)
duloxetine 30 mg Capsule,Delayed Release(Dr/Ec)
30 mg PO HS
cholecalciferol (vitamin D3) [Vitamin D3] 50 mcg (2,000 unit) Tablet
50 mcg PO DAILY
aspirin 81 mg Capsule
81 mg PO DAILY
Eliquis 5 mg Tablet
5 mg PO BID Qty: 180 0RF
albuterol sulfate [ProAir HFA] 90 mcg/actuation Hfa Aerosol Inhaler
2 puff INHALATION R Q6HPRN PRN (Reason: sob)
nystatin 100,000 unit/mL Suspension
5 ml PO QID 10 Days Qty: 200 0RF
torsemide 20 mg Tablet
40 mg PO DAILY 30 Days Qty: 60 0RF
pantoprazole 40 mg Tablet,Delayed Release (Dr/Ec)
40 mg PO DAILY 30 Days Qty: 30 0RF
metoprolol succinate 25 mg Tablet Extended Release 24 Hr
12.5 mg PO QPM 30 Days Qty: 15 0RF
gabapentin 300 mg capsule
300 mg PO MOWEFR PRN (Reason: nerve pain) Qty: 0 0RF
Referrals:
Heri Huston MD [Family Provider] -
Activity Restrictions/Additional Instructions:
As discussed, please follow-up with dialysis center tomorrow morning for rescheduled dialysis session. Your prescription has been sent electronically to [facility] in [place]. Please return to ED with worsening symptoms.
Interventions
Interventions:
*Risk Screen - Suicide Last Done: 11/09/23 06:20
*General Assessment Last Done: 11/09/23 06:42
*Neglect/Abuse Screening Last Done: 11/09/23 06:20
ED- Fall Risk Assessment Last Done: 11/09/23 07:15
*ED COVID-19 Vaccine History Last Done: 11/09/23 06:42
*Nursing Disposition Last Done: 11/09/23 10:55
EA-Fpwsto-Uowigcjdkf Assessment Last Done: 11/09/23 07:15
Discharge Date and Time
Discharge Date/Time: 11/09/23 10:50
Print Language: ST LUCIAN
[2023-11-09 06:42] VITALS: BMI 19.7
[2023-11-09] MEDS: NSS 250 IV (06:55)
[2023-11-09 07:01] LABS: % Basophils 0.2 % (0-2); % Eosinophils 0.7 % (0-6); % Immature Granulocytes 1.6 % (0-0.5); % Lymphocytes 20.2 % (20.5-51.1); % Monocytes 4.8 % (1.7-9.3); % Neutrophils 72.5 % (42.2-75.2); Absolute Eosinophils 0.1 10^3/uL (0-0.7); Absolute Immature Granulocytes 0.3 10^3/uL (0-0.05); Absolute Lymphocytes 3.7 10^3/uL (1.2-3.4); Absolute Monocytes 0.9 10^3/uL (0.1-0.6); Absolute Neutrophils 13.4 10^3/uL (1.4-6.5); Hematocrit 34.4 % (37.0-47.0); Hemoglobin 11.3 g/dL (12.0-16.0); Mean Corp Hgb Conc. 32.8 g/dL (33.0-37.0); Mean Corpuscular Hgb 30.3 pg (27.0-31.0); Mean Corpuscular Volume 92.2 fL (81.0-99.0); Mean Platelet Volume 10.6 fL (7.4-10.4); Nucleated Red Blood Cells % 0.3 %; Platelet Count 290 10^3/uL (130-400); Red Blood Cell Count 3.73 10^6/uL (4.20-5.40); White Blood Cell Count 18.5 10^3/uL (4.8-10.8)
[2023-11-09 07:25] VITALS: BP 140/92
[2023-11-09] MEDS: ZOFRAN 4 MG IV (07:33)
[2023-11-09 07:45] LABS: ALT (SGPT) 17 U/L (0-35); AST (SGOT) 21 U/L (14-36); Albumin 3.9 g/dl (3.5-5.0); Alkaline Phosphatase 76 U/L (38-126); Blood Urea Nitrogen 58 mg/dl (7-17); Calcium 8.9 mg/dl (8.4-10.2); Carbon Dioxide 25 mmol/L (22-30); Chloride 97 mmol/L (98-107); Estimated Creatinine Clearance 14 ml/min; Glucose 152 mg/dl (70-99); Potassium 3.2 mmol/L (3.5-5.1); Sodium 135 mmol/L (135-145); Total Bilirubin 1.1 mg/dl (0.2-1.3); Total Protein 6.4 g/dl (6.3-8.2); eGFR 13.17
[2023-11-09 07:59] LABS: NT-proBNP > 27000 pg/ml
[2023-11-09 08:00] VITALS: BP 140/95
[2023-11-09 09:00] VITALS: BP 131/79
[2023-11-09 10:00] VITALS: BP 127/77
[2023-11-09] MEDS: ZOFRAN ODT (ORALLY DISINTEGRATING) 4 MG PO (10:10)
--- NOTE | 2023-11-09 10:50 | EDRN ---
Reviewed discharge instructions with patient. Verbalized understanding. Taken to lobby in wheelchair.
[2023-11-09 10:55] VITALS: BP 123/77
== END 2023-11-09 10:50 | disposition home or self-care (01) ==
LOC: EMR 06:08
PROVIDERS: EMERGENCY PHYSICIAN Emergency Medicine; FAMILY PHYSICIAN Internal Medicine
DX: K52.9 Noninfective gastroenteritis and colitis, unspecified (principal); I12.0 Hypertensive chronic kidney disease with stage 5 chronic kidney disease or end stage renal disease; N18.6 End stage renal disease; Z99.2 Dependence on renal dialysis; I25.10 Atherosclerotic heart disease of native coronary artery without angina pectoris; J44.9 Chronic obstructive pulmonary disease, unspecified; I69.351 Hemiplegia and hemiparesis following cerebral infarction affecting right dominant side; I69.392 Facial weakness following cerebral infarction; E78.5 Hyperlipidemia, unspecified; E03.9 Hypothyroidism, unspecified; F41.9 Anxiety disorder, unspecified; F32.A Depression, unspecified; I25.2 Old myocardial infarction; Z95.5 Presence of coronary angioplasty implant and graft; Z85.43 Personal history of malignant neoplasm of ovary; Z85.828 Personal history of other malignant neoplasm of skin; Z87.891 Personal history of nicotine dependence
CPT/HCPCS: 99284; 96374; 71045; 80053; 83880; 85025

== ENCOUNTER → 2023-11-10 12:54 | Outpatient (REF) | payer OTHER, SELFPAY | LOC: RAD 12:54 | PROVIDERS: ATTENDING PHYSICIAN Surgery Vascular Surgery; FAMILY PHYSICIAN Internal Medicine | DX: Z01.818 Encounter for other preprocedural examination (principal) | CPT/HCPCS: 93985 ==

== ENCOUNTER 2023-11-15 08:05 | Emergency (ER) | payer OTHER, SELFPAY ==
[2023-11-15] VITALS (9 sets, daily range): BP systolic 106–146; BP diastolic 75–102; BMI 20.3
[2023-11-15 09:07] LABS: % Basophils 0.2 % (0-2); % Eosinophils 0.2 % (0-6); % Immature Granulocytes 1.4 % (0-0.5); % Lymphocytes 14.9 % (20.5-51.1); % Monocytes 4.6 % (1.7-9.3); % Neutrophils 78.7 % (42.2-75.2); Absolute Immature Granulocytes 0.3 10^3/uL (0-0.05); Absolute Lymphocytes 2.8 10^3/uL (1.2-3.4); Absolute Monocytes 0.9 10^3/uL (0.1-0.6); Absolute Neutrophils 14.9 10^3/uL (1.4-6.5); Blood Urea Nitrogen 56 mg/dl (7-17); Calcium 9.3 mg/dl (8.4-10.2); Carbon Dioxide 22 mmol/L (22-30); Chloride 93 mmol/L (98-107); Estimated Creatinine Clearance 18 ml/min; Glucose 136 mg/dl (70-99); Hematocrit 36.7 % (37.0-47.0); Hemoglobin 11.9 g/dL (12.0-16.0); Mean Corp Hgb Conc. 32.4 g/dL (33.0-37.0); Mean Corpuscular Hgb 31.2 pg (27.0-31.0); Mean Corpuscular Volume 96.1 fL (81.0-99.0); Mean Platelet Volume 11.1 fL (7.4-10.4); Nucleated Red Blood Cells % 0.7 %; Platelet Count 266 10^3/uL (130-400); Red Blood Cell Count 3.82 10^6/uL (4.20-5.40); Sodium 132 mmol/L (135-145); White Blood Cell Count 18.9 10^3/uL (4.8-10.8); eGFR 17.64
[2023-11-15] MEDS: ZOFRAN 4 MG IV (09:46)
[2023-11-15 10:22] LABS: ALT (SGPT) 51 U/L (0-35); AST (SGOT) 64 U/L (14-36); Albumin 4.2 g/dl (3.5-5.0); Alkaline Phosphatase 80 U/L (38-126); Blood Urea Nitrogen 55 mg/dl (7-17); Calcium 9.3 mg/dl (8.4-10.2); Carbon Dioxide 23 mmol/L (22-30); Chloride 95 mmol/L (98-107); Estimated Creatinine Clearance 17 ml/min; Glucose 109 mg/dl (70-99); Potassium 4.8 mmol/L (3.5-5.1); Sodium 133 mmol/L (135-145); Total Bilirubin 1.3 mg/dl (0.2-1.3); Total Protein 6.5 g/dl (6.3-8.2); eGFR 16.28
[2023-11-15 10:41] LABS: Troponin I 0.061 ng/ml
[2023-11-15 12:36] LABS: NT-proBNP > 27000 pg/ml
[2023-11-15 14:22] LABS: Troponin I 0.065 ng/ml
--- NOTE | 2023-11-15 18:22 | ED.GENMED ---
History of Present Illness
General
Chief Complaint: Weakness
Source: patient and spouse
Exam Limitations: none
Time Seen by Provider: 11/15/23 08:36
Nursing documentation reviewed up to this point in time: agreed with
History of Present Illness
History of Present Illness:
63-year-old female with history as documented�complicated recent admission for new onset CHF, ESRD initiation of dialysis. She presents today for increasing weakness and shortness of breath over the past few days. Last dialysis session Thursday.
Denies any significant cough, fevers, chills. No chest pain. She has had some constipation no other complaints.
Past History
Past History
ED Past Medical History: CAD, Cancer (ovarian ca, vulvular ca, basal cell ca), COPD and CVA
ED Past Surgical History: Brain and Other (aortic stent August 2023)
Social History
Tobacco: Former smoker
Personal:
Living: with family
Review of Systems
Review of Systems
All Other Systems: ROS reviewed and negative except as documented in HPI and ROS
Constitutional: Reports fatigue; Denies fever
Respiratory: Reports trouble breathing; Denies cough
Cardiac: Denies chest pain
ABD/GI: Reports constipated; Denies abdominal pain or vomiting
: Denies flank pain
Musculoskeletal: Denies neck pain or back pain
Neurological: Denies headache
Phy Exam
Physical Exam
Physical Exam:
General: Awake, alert, oriented x3; no acute distress
Head: Normocephalic, atraumatic
Eyes: Conjunctiva normal
Throat: Airway intact, handling secretions
Neck: Trachea midline, no JVD
Lungs: Very mild tachypnea with respiratory rate of 20-24, pulse ox normal on room air, no focal rales or wheezing appreciated
Heart: Regular rate and rhythm, no murmurs, gallops, or rubs; right chest wall dialysis catheter
Abd: Soft, non distended, nontender
Neuro: No gross deficits
Skin: no rash
Extremities: Trace pedal edema, equal pulses in all extremities
Scores
Heart Failure Risk
Heart Failure Risk Score: Yes
History of Stroke or TIA: Yes
History of intubation for respiratory distress: Yes
Heart rate on ED arrival >/= 110: No
SaO2 <90% on arrival on room air: No
HR >/=110 during 3min walk test (or too ill to perform test): No
ECG has acute ischemic changes: No
Urea >/=12mmol/L (BUN 33.6mg/dL): Yes
Serum CO2>/=35mmol/L: No
Troponin I or T elevated to CO Level (0.4mg/dL): No
NT-proBNP >/=5,000ng/L (5,000pg/ml): Yes
HF Risk Score: 5
Admission Status: VERY HIGH RISK 39.8% Consider admission to hospital
Heart Score for Chest Pain Patients
STEMI patient?: Not applicable
Withdrawal Assessment of Alcohol
Withdrawal Assessment Completed?: Not applicable
Course
Orders/Labs/Results
Orders:
Orders
11/15/23 08:24
Electrocardiogram (*1) Urgent
Reason for Study: Fatigue / Weakness
11/15/23 08:25
EKG- Treatment ONCE
11/15/23 08:27
Basic Metabolic Panel Urgent
Complete Blood Count/With Diff Urgent
11/15/23 08:38
CR Chest Portable - 1 View Urgent
Comment:
Reason For Exam: sob
Reason Study Needs to be Portable: Unable to Transport
11/15/23 08:48
EKG [Electrocardiogram (*1)] Urgent
Reason for Study: Fatigue / Weakness
EKG- Treatment ONCE
11/15/23 09:44
Ondansetron Injectable [Zofran] 4 mg .ROUTE .STK-MED ONE
11/15/23 09:46
Ondansetron Injectable [Zofran] 4 mg IV NOW STA
11/15/23 10:00
NT-proBNP Urgent
Troponin I Urgent
11/15/23 10:02
CMP [Comprehensive Metabolic Panel] Urgent
11/15/23 10:46
Iohexol [Omnipaque] See Protocol PO NOW STA
11/15/23 13:17
EKG [Electrocardiogram (*1)] Urgent
Reason for Study: Fatigue / Weakness
EKG- Treatment ONCE
11/15/23 13:19
Troponin I Urgent
Abnormal Lab Results
11/15/23 11/15/23 11/15/23
10:00 10:02
WBC 18.9 H 10^3/uL
(4.8-10.8)
RBC 3.82 L 10^6/uL
(4.20-5.40)
Hgb 11.9 L g/dL
(12.0-16.0)
Hct 36.7 L %
(37.0-47.0)
MCH 31.2 H pg
(27.0-31.0)
MCHC 32.4 L g/dL
(33.0-37.0)
RDW 22.0 H %
(11.5-14.5)
MPV 11.1 H fL
(7.4-10.4)
Abs Immat Gran (auto) 0.3 H 10^3/uL
(0-0.05)
Absolute Neuts (auto) 14.9 H 10^3/uL
(1.4-6.5)
Absolute Monos (auto) 0.9 H 10^3/uL
(0.1-0.6)
Immature Gran % 1.4 H %
(0-0.5)
Neutrophils % 78.7 H %
(42.2-75.2)
Lymphocytes % 14.9 L %
(20.5-51.1)
Sodium 132 L mmol/L 133 L mmol/L
(135-145) (135-145)
Chloride 93 L mmol/L 95 L mmol/L
(98-107) (98-107)
BUN 56 H mg/dl 55 H mg/dl
(7-17) (7-17)
Creatinine 2.9 H mg/dL 3.1 H mg/dL
(0.6-1.0) (0.6-1.0)
Glucose 136 H mg/dl 109 H mg/dl
(70-99) (70-99)
AST 64 H U/L
(14-36)
ALT 51 H U/L
(0-35)
Troponin I 0.061 H* ng/ml
11/15/23
13:19
WBC
RBC
Hgb
Hct
MCH
MCHC
RDW
MPV
Abs Immat Gran (auto)
Absolute Neuts (auto)
Absolute Monos (auto)
Immature Gran %
Neutrophils %
Lymphocytes %
Sodium
Chloride
BUN
Creatinine
Glucose
AST
ALT
Troponin I 0.065 H* ng/ml
11/15/23 08:27
11/15/23 10:02
Vital Signs
Initial and Last Documented VS:
Initial Vital Signs
Temp Pulse Resp Pulse Ox
36.5 C 90 28 93
11/15/23 08:11 08/04/24 08:11 11/15/23 08:11 11/15/23 08:11
Last Documented Vital Signs
Temp Pulse Resp BP Pulse Ox
36.5 C 87 20 140/93 94
11/15/23 08:11 11/15/23 14:00 11/15/23 14:00 11/15/23 13:44 11/15/23 13:44
MDM/Problems Addressed
Differential Diagnosis Includes:
CHF, pneumonia, anemia
MDM/Problems Addressed:
63-year-old female presents with increased weakness, shortness of breath. Vitals and exam as above. Send labs including a CBC and a CMP, troponin, proBNP. Check EKG and chest x-ray. Reassess after the above.
CBC shows leukocytosis to 18.9 which is a known issue for the patient and is stable for chronic values�she is pursuing an outpatient workup for this. Marginal anemia unlikely clinically significant. CMP shows elevated BUN and creatinine in keeping
with ESRD. Her troponin was marginally elevated�will trend but suspect related to CHF. Her proBNP is greater than 27,000 and her chest x-ray shows mild edema consistent with CHF. Fortunately her vital signs are reassuring�respiratory rate now 20,
pulse ox has been normal. Will continue to monitor pending repeat troponin.
Repeat troponin flat. Clinical reassessment patient remains well-appearing. She is due for dialysis tomorrow. She is requesting to be discharged as she does not wish to stay in the hospital although I did offer to admit her for mild CHF. She
wishes to follow-up with dialysis to have fluid taken off as scheduled. I discussed the case with cardiology (patient follows with Dr. Charlton)--okay with discharge to follow-up with dialysis tomorrow. Patient to follow-up as an outpatient. Will
discharge in keeping with her wishes outpatient treatment plan as above.
Chronic conditions affecting care:
CHF, ESRD
*Radiology
Radiology exam reviewed: preliminary read by ED provider and radiology read reviewed
*Pulse Oximetry
Patient hypoxic: no
*EKG
Interpreted by ED Provider?: Yes
Heart Rate: 89
Rate: normal
Rhythm: sinus
[place]: normal axis
Interval: long QT
QRS Pattern: left vent hypertrophy
Ischemia: non-specific ST changes
*Critical Care Note
Total Time (30-74mins, 75-104mins- exclusive of procedures): Not Applicable
Data Reviewed
Review of Other/Old Records Reveals: Labs, Records and Discharge Summary
Source: patient, records and family
Patient Management
Discussion with other providers: Fine Craft Artist (Discussed with cardiology)
Escalation/DeEscalation of care consider admission/obs:
Offered admission, discharged using shared decision making
ED Attending Note
-
Portions of this chart may have been created with voice recognition software.� Occasional wrong word or��sound alike� substitutions may have occurred due to the inherent limitations of voice recognition software.
Discharge Plan
Departure
Patient Disposition: Home (Routine Discharge)
Patient with high blood pressure during this ER visit?: Yes
Discharge Problem:
CHF (congestive heart failure)
Instructions: *CBC Heart Failure Instructions
Prescriptions:
No Action
atorvastatin 80 mg Tablet
80 mg PO DAILY
levothyroxine 100 mcg Tablet
100 mcg PO DAILY
alprazolam 0.25 mg Tablet
0.25 mg PO BIDPRN PRN (Reason: anxiety)
duloxetine 30 mg Capsule,Delayed Release(Dr/Ec)
30 mg PO HS
cholecalciferol (vitamin D3) [Vitamin D3] 50 mcg (2,000 unit) Tablet
50 mcg PO DAILY
aspirin 81 mg Capsule
81 mg PO DAILY
Eliquis 5 mg Tablet
5 mg PO BID Qty: 180 0RF
albuterol sulfate [ProAir HFA] 90 mcg/actuation Hfa Aerosol Inhaler
2 puff INHALATION R Q6HPRN PRN (Reason: sob)
nystatin 100,000 unit/mL Suspension
5 ml PO QID 10 Days Qty: 200 0RF
torsemide 20 mg Tablet
40 mg PO DAILY 30 Days Qty: 60 0RF
pantoprazole 40 mg Tablet,Delayed Release (Dr/Ec)
40 mg PO DAILY 30 Days Qty: 30 0RF
metoprolol succinate 25 mg Tablet Extended Release 24 Hr
12.5 mg PO QPM 30 Days Qty: 15 0RF
gabapentin 300 mg capsule
300 mg PO MOWEFR PRN (Reason: nerve pain) Qty: 0 0RF
ondansetron 4 mg Tablet,Disintegrating
4 mg PO TIDPRN PRN (Reason: nausea/vomiting) Qty: 12 0RF
Referrals:
Emile Charlton MD [Active] - Call in 1-3 days for appt
Heri Huston MD [Family Provider] -
Activity Restrictions/Additional Instructions:
Thank you for visiting the Emergency Department at [facility].
1. Please schedule a follow up appointment as directed. Call first thing tomorrow morning to make an appointment.
2. If indicated, please take your medications as instructed and indicated on discharge paperwork.
3. If any of your symptoms do not improve, or persist, or become more severe within 6-12 hours, please return to the emergency department for further care.
4. Please return to the emergency department if you develop a headache, neck pain/stiffness, fever greater than 100.4F, chest pain, shortness of breath, persistent nausea, vomiting, slurred speech, difficulty walking, numbness/tingling, weakness,
signs of infection or any other symptoms that are worrisome to you.
Please call [phone] if you have any questions.
Interventions
Interventions:
*Risk Screen - Suicide Last Done: 11/15/23 08:08
*General Assessment Last Done: 11/15/23 08:14
*Neglect/Abuse Screening Last Done: 11/15/23 08:11
ED- Fall Risk Assessment Last Done: 11/15/23 08:09
*ED COVID-19 Vaccine History Last Done: 11/15/23 08:14
*Nursing Disposition Last Done: 11/15/23 14:45
ED- Cardiac Assessment Last Done: 11/15/23 08:49
ED- Neurological Assessment Last Done: 11/15/23 08:49
ED- Pulmonary Assessment Last Done: 11/15/23 08:49
Discharge Date and Time
Discharge Date/Time: 11/15/23 14:45
Print Language: [id number]
== END 2023-11-15 14:45 | disposition home or self-care (01) ==
LOC: EMR 08:05
PROVIDERS: EMERGENCY PHYSICIAN Emergency Medicine; FAMILY PHYSICIAN Internal Medicine
DX: I50.9 Heart failure, unspecified (principal); N18.6 End stage renal disease; J44.9 Chronic obstructive pulmonary disease, unspecified; I25.10 Atherosclerotic heart disease of native coronary artery without angina pectoris; Z85.43 Personal history of malignant neoplasm of ovary; Z86.73 Personal history of transient ischemic attack (TIA), and cerebral infarction without residual deficits; Z87.891 Personal history of nicotine dependence; Z99.2 Dependence on renal dialysis
CPT/HCPCS: 99283; 96374; 71045; 80048; 80053; 83880; 84484; 85025; 93005

== ENCOUNTER 2023-12-13 23:21 | Inpatient (IN) | payer OTHER, SELFPAY ==
[2023-12-13 20:42] VITALS: BP 135/82
[2023-12-13 21:00] VITALS: BP 134/78
[2023-12-13 21:06] LABS: % Basophils 0.3 % (0-2); % Immature Granulocytes 0.5 % (0-0.5); % Lymphocytes 5.8 % (20.5-51.1); % Neutrophils 86.4 % (42.2-75.2); Absolute Basophils 0.1 10^3/uL (0-0.2); Absolute Immature Granulocytes 0.1 10^3/uL (0-0.05); Absolute Lymphocytes 1.1 10^3/uL (1.2-3.4); Absolute Monocytes 1.3 10^3/uL (0.1-0.6); Absolute Neutrophils 15.8 10^3/uL (1.4-6.5); Hematocrit 38.5 % (37.0-47.0); Hemoglobin 12.1 g/dL (12.0-16.0); Mean Corp Hgb Conc. 31.4 g/dL (33.0-37.0); Mean Corpuscular Hgb 29.5 pg (27.0-31.0); Mean Corpuscular Volume 93.9 fL (81.0-99.0); Mean Platelet Volume 11.4 fL (7.4-10.4); Nucleated Red Blood Cells % 0.5 %; Platelet Count 238 10^3/uL (130-400); White Blood Cell Count 18.3 10^3/uL (4.8-10.8)
[2023-12-13] MEDS: SUBLIMAZE 50 MCG IV (21:06)
[2023-12-13 21:24] LABS: APTT 42.4 Sec (23.4-35.0); INR 4.11; PT 39.9 Sec (11.4-14.6)
--- NOTE | 2023-12-13 21:28 | ED.GENMED ---
History of Present Illness
<Josep Morales PA-C - Last Filed: 12/14/23 02:20>
General
Chief Complaint: Weakness
Time Seen by Provider: 12/13/23 20:45
History of Present Illness
History of Present Illness:
3-year-old female with a very complex past medical history most notable for aortic atherosclerotic disease status post Endo stent placement in August, moyamoya syndrome, and end-stage renal disease on dialysis (last treatment 2 days ago) presents to
the emergency department complaining of severe abdominal and low back pain. Her states she been complaining of weakness throughout the week, this morning after lunch she fell asleep and was very difficult to arouse prompting him to call
911. On arrival the patient is pale, with central mottling and peripheral cyanosis. She is writhing in pain and calling out for help. She does not answer the majority my questions.
Past History
<Josep Morales PA-C - Last Filed: 12/14/23 02:20>
Past History
ED Past Medical History: CAD, Cancer (ovarian ca, vulvular ca, basal cell ca), COPD and CVA
ED Past Surgical History: Brain and Other (aortic stent August 2023)
Social History
Tobacco: Former smoker
Personal:
Living: with family
Review of Systems
<Josep Morales PA-C - Last Filed: 12/14/23 02:20>
Review of Systems
Allergies reviewed?: Yes
All Other Systems: ROS reviewed and negative except as documented in HPI and ROS
Phy Exam
<Josep Morales PA-C - Last Filed: 12/14/23 02:20>
Physical Exam
Physical Exam:
GEN: Toxic, mottled, writhing in pain
Eyes: Pupils 3 mm and reactive
HENT: NCAT, oral mucosa moist
Lungs: Tachypneic, clear lungs bilaterally
Cardiac: RRR, no M/R/G, no peripheral edema. No palpable radial or pedal pulses bilaterally
Abdomen: Mottled skin, markedly tender to palpation
Neuro: Alert, writhing in pain, does not answer questions appropriately, moves all extremities freely
MSK: No gross deformity or ecchymosis. No edema. No digital clubbing
Skin: Generally pale and mottled
Psych: Calm, cooperative, proper hygiene
Course
<Josep Morales PA-C - Last Filed: 12/14/23 02:20>
Orders/Labs/Results
Orders:
Orders
12/13/23 20:59
CMP [Comprehensive Metabolic Panel] Urgent
Complete Blood Count/With Diff Urgent
Fentanyl Citrate/Pf [Sublimaze] 50 mcg IV NOW STA
12/13/23 21:01
Type+Screen Urgent
PTT Urgent
Prothrombin Time Urgent
12/13/23 21:09
CT Chest/abd/pelvis Angio W/wo Stat
Comment:
Reason For Exam: abd/back pain, mottling
12/13/23 22:00
Heparin 44079 Units/250 ml 25,000 units in 250 ml IV PER PROTOCOL
Weight to be used for heparin protocol in kilograms (kg):: 58.6
Protocol:: Vascular Surgery
PTT Goal Range to be used:: PTT 73 to 111 seconds
Order type:: Initial
INITIAL Infusion Dose (UNITS/KG/hr) & then follow protocol:: 18 units/kg/hr
Infusion Dose in UNITS/hr & then follow protocol (UNITS/hr):: 1,100
INFUSION RATE in mL/hr & then follow protocol (mL/hr):: 11
PTT less than or equal to 64 seconds:: Notify Ordering Provider. obtain orders for rate increase &
possible bolus
PTT 64.1 to 72.9 seconds:: Increase rate by 100 units/hr (+ 1 mL/hr)
PTT 73 to 111 seconds:: Target Range. No change in rate.
PTT 111.1 to 130.9 seconds:: Decrease rate by 100 units/hr (- 1 mL/hr)
PTT 131 to 199.9 seconds:: HOLD for 1 hour. Then decrease rate by 200 units/hr (- 2 mL/hr)
PTT greater than or equal to 200 seconds:: STOP INFUSION. Notify Ordering provider to obtain further orders.
Lab follow-up:: Each change, PTT q6h until 2 consecutive are therapeutic. Then PTT
daily.
Pharmacy Request to Place See Dose Instructions IV DIRECTED
Pharmacy Request to Place See Dose Instructions PO NOW STA
Discontinue all Active Warfarin orders?: Yes
12/13/23 22:14
Ammonia Urgent
Lactic Acid Urgent
12/13/23 23:07
Admit/Transfer Patient As Directed
Co-Sign Provider:
Level of Care: Inpatient admission
Assign to:: ICU
Physician / Group: Hospitalist
Diagnosis: Acute Celiac Artery Occlusion
Reason for Hospitalization: Mesenteric Ischemia
Expected length of stay greater than two midnights?: Yes
ELOS- Estimated Length of Stay in days: 2
I certify the patient meets the requirements for IP care: Yes
12/13/23 23:08
PRN Pain Medication Management As Directed
May give lesser potent ordered pain med per pt: Yes
preference::
Protocol:: Medication orders for pain may be administered in a
manner that supports deferring to patient preference
when the pt is:
- Requesting an ordered lesser potent pain medication.
Least to most potent pain medications are defined
as: acetaminophen < NSAID < tramadol < opioids
(morphine, oxycodone, hydromorphone).
- Requesting a lesser dose of the same medication IF
ORDERED.
- Requesting a less intrusive route of administration
if both routes are prescribed by the provider (PO <
IV).
12/13/23 23:09
Code Status As Directed
Resuscitation Status: Do not resuscitate
Reached after discussion with pt or family/Healthcare POA: Yes
12/13/23 23:10
DNR Bracelet Application ONCE
12/13/23 23:24
Ondansetron Injectable [Zofran] 4 mg IV Q6HPRN PRN
12/13/23 23:36
HYDROmorphone [Dilaudid] 0.25 mg IV Q6HPRN PRN
12/14/23 00:15
Acetaminophen [Tylenol] 650 mg PO Q4HPRN PRN
Albuterol [ProAIR HFA INHALER] 2 puff INH R Q6HPRN PRN
Bisacodyl [Dulcolax] 10 mg RECTAL [id number] PRN
Dextrose 5%/0.45%Sodchl 1000ML [D5/0.45%NaCl] 1,000 ml IV 40 mls/hr
Docusate W/Senna [Senokot-S] 1 tablet PO BIDPRN PRN
Gabapentin [Neurontin] 300 mg PO MoWeFr PRN
Ipratropium/Albuterol Sulfate [Duoneb] 3 ml INH R Q4HPRN PRN
Lorazepam [Ativan] 1 mg IV Q6HPRN PRN
Polyethylene Glycol Powder [Miralax] 17 grams PO DAILYPRN PRN
12/14/23 00:15
Consult Notification Routine
Specialty to Notify: Web Press Jogger
Consult Notification Routine
Specialty to Notify: Nephrology
Web Press Jogger Consult Routine
Consulting Provider: Marcell Greenberg
Was physician already notified: No
Reason for consult: mesenteric ischemia
NEPHROLOGY CONSULT Routine
Consulting Provider: Shorty Angeles V.
Was physician already notified: No
Reason for consult: ESRD on HD M/W/F
Vascular Surgery Consult Routine
Consulting Provider: Tony Portillo III
Was physician already notified: Yes
Reason for consult: Acute celiac artery occlusion
VTE Contraindication Routine
VTE Mechanical Device Contraindication: Medical Contraindication
Pharmocologic Contraindication: Medical Contraindication
Activity As Directed
Activity Level: With Assistance
Vital Signs As Directed
Frequency: Per unit guidelines
O2 Therapy [RESP] Routine
Nasal Cannula Liter Flow: 2 LPM
Titrate/Wean O2 to maintain O2 sat greater than (%): 92
12/14/23 Breakfast
NPO
Allow oral meds: Yes
Allow clear liquids: Sips of Clears
Complete Blood Count/With Diff IN AM
Lactic Acid IN AM
Lipase IN AM
Prothrombin Time IN AM
Levothyroxine [Synthroid] 100 mcg PO DAILY @ 0600
12/14/23 08:00
Aspirin Low Dose EC [Aspir Low (Enteric Coated)] 81 mg PO DAILY
Atorvastatin [Lipitor] 80 mg PO DAILY
Pantoprazole [Protonix IV] 40 mg IV DAILY
12/14/23 18:00
Metoprolol Xl [Toprol Xl] 12.5 mg PO QPM
12/14/23 22:00
Duloxetine Delayed Release [Cymbalta Delayed Release] 30 mg PO HS
Abnormal Lab Results
12/13/23 12/13/23 12/13/23
20:59 21:01 22:14
WBC 18.3 H 10^3/uL
(4.8-10.8)
RBC 4.10 L 10^6/uL
(4.20-5.40)
MCHC 31.4 L g/dL
(33.0-37.0)
RDW 19.0 H %
(11.5-14.5)
MPV 11.4 H fL
(7.4-10.4)
Abs Immat Gran (auto) 0.1 H 10^3/uL
(0-0.05)
Absolute Neuts (auto) 15.8 H 10^3/uL
(1.4-6.5)
Absolute Lymphs (auto) 1.1 L 10^3/uL
(1.2-3.4)
Absolute Monos (auto) 1.3 H 10^3/uL
(0.1-0.6)
Neutrophils % 86.4 H %
(42.2-75.2)
Lymphocytes % 5.8 L %
(20.5-51.1)
PT 39.9 H Sec
(11.4-14.6)
APTT 42.4 H Sec
(23.4-35.0)
Potassium 5.5 H mmol/L
(3.5-5.1)
Chloride 92 L mmol/L
(98-107)
Carbon Dioxide 19 L mmol/L
(22-30)
BUN 44 H mg/dl
(7-17)
Creatinine 4.6 H* mg/dL
(0.6-1.0)
Glucose 106 H mg/dl
(70-99)
Lactic Acid 9.2 H* mmol/L
(0.7-2.0)
Total Bilirubin 2.9 H mg/dl
(0.2-1.3)
AST 211 H U/L
(14-36)
ALT 110 H U/L
(0-35)
Alkaline Phosphatase 142 H U/L
(38-126)
Ammonia < 9 L umol/L
(9-30)
Antibody Screen Positive A
(Negative)
12/13/23 20:59
12/13/23 20:59
Vital Signs
Initial and Last Documented VS:
Initial Vital Signs
Temp Pulse Resp BP
99 F 88 20 135/82
12/13/23 20:42 12/13/23 20:42 12/13/23 20:42 12/13/23 20:42
Last Documented Vital Signs
Temp Pulse Resp BP Pulse Ox
99 F 96 25 137/77 82
12/13/23 20:42 12/14/23 00:07 12/14/23 00:07 12/14/23 00:09 12/14/23 00:00
<Halley Portillo MD - Last Filed: 12/13/23 22:23>
Orders/Labs/Results
Orders:
Orders
12/13/23 20:59
CMP [Comprehensive Metabolic Panel] Urgent
Complete Blood Count/With Diff Urgent
Fentanyl Citrate/Pf [Sublimaze] 50 mcg IV NOW STA
12/13/23 21:01
Type+Screen Urgent
PTT Urgent
Prothrombin Time Urgent
12/13/23 21:09
CT Chest/abd/pelvis Angio W/wo Stat
Comment:
Reason For Exam: abd/back pain, mottling
12/13/23 22:00
Heparin 44801 Units/250 ml 25,000 units in 250 ml IV PER PROTOCOL
Weight to be used for heparin protocol in kilograms (kg):: 58.6
Protocol:: Vascular Surgery
PTT Goal Range to be used:: PTT 73 to 111 seconds
Order type:: Initial
INITIAL Infusion Dose (UNITS/KG/hr) & then follow protocol:: 18 units/kg/hr
Infusion Dose in UNITS/hr & then follow protocol (UNITS/hr):: 1,100
INFUSION RATE in mL/hr & then follow protocol (mL/hr):: 11
PTT less than or equal to 64 seconds:: Notify Ordering Provider. obtain orders for rate increase &
possible bolus
PTT 64.1 to 72.9 seconds:: Increase rate by 100 units/hr (+ 1 mL/hr)
PTT 73 to 111 seconds:: Target Range. No change in rate.
PTT 111.1 to 130.9 seconds:: Decrease rate by 100 units/hr (- 1 mL/hr)
PTT 131 to 199.9 seconds:: HOLD for 1 hour. Then decrease rate by 200 units/hr (- 2 mL/hr)
PTT greater than or equal to 200 seconds:: STOP INFUSION. Notify Ordering provider to obtain further orders.
Lab follow-up:: Each change, PTT q6h until 2 consecutive are therapeutic. Then PTT
daily.
Pharmacy Request to Place See Dose Instructions IV DIRECTED
Pharmacy Request to Place See Dose Instructions PO NOW STA
Discontinue all Active Warfarin orders?: Yes
12/13/23 22:14
Ammonia Urgent
Lactic Acid Urgent
12/13/23 23:07
Admit/Transfer Patient As Directed
Co-Sign Provider:
Level of Care: Inpatient admission
Assign to:: ICU
Physician / Group: Hospitalist
Diagnosis: Acute Celiac Artery Occlusion
Reason for Hospitalization: Mesenteric Ischemia
Expected length of stay greater than two midnights?: Yes
ELOS- Estimated Length of Stay in days: 2
I certify the patient meets the requirements for IP care: Yes
12/13/23 23:08
PRN Pain Medication Management As Directed
May give lesser potent ordered pain med per pt: Yes
preference::
Protocol:: Medication orders for pain may be administered in a
manner that supports deferring to patient preference
when the pt is:
- Requesting an ordered lesser potent pain medication.
Least to most potent pain medications are defined
as: acetaminophen < NSAID < tramadol < opioids
(morphine, oxycodone, hydromorphone).
- Requesting a lesser dose of the same medication IF
ORDERED.
- Requesting a less intrusive route of administration
if both routes are prescribed by the provider (PO <
IV).
12/13/23 23:09
Code Status As Directed
Resuscitation Status: Do not resuscitate
Reached after discussion with pt or family/Healthcare POA: Yes
12/13/23 23:10
DNR Bracelet Application ONCE
12/13/23 23:24
Ondansetron Injectable [Zofran] 4 mg IV Q6HPRN PRN
12/13/23 23:36
HYDROmorphone [Dilaudid] 0.25 mg IV Q6HPRN PRN
12/14/23 00:15
Acetaminophen [Tylenol] 650 mg PO Q4HPRN PRN
Albuterol [ProAIR HFA INHALER] 2 puff INH R Q6HPRN PRN
Bisacodyl [Dulcolax] 10 mg RECTAL [id number] PRN
Dextrose 5%/0.45%Sodchl 1000ML [D5/0.45%NaCl] 1,000 ml IV 40 mls/hr
Docusate W/Senna [Senokot-S] 1 tablet PO BIDPRN PRN
Gabapentin [Neurontin] 300 mg PO MoWeFr PRN
Ipratropium/Albuterol Sulfate [Duoneb] 3 ml INH R Q4HPRN PRN
Lorazepam [Ativan] 1 mg IV Q6HPRN PRN
Polyethylene Glycol Powder [Miralax] 17 grams PO DAILYPRN PRN
12/14/23 00:15
Consult Notification Routine
Specialty to Notify: Web Press Jogger
Consult Notification Routine
Specialty to Notify: Nephrology
Web Press Jogger Consult Routine
Consulting Provider: Marcell Greenberg
Was physician already notified: No
Reason for consult: mesenteric ischemia
NEPHROLOGY CONSULT Routine
Consulting Provider: Shorty Angeles V.
Was physician already notified: No
Reason for consult: ESRD on HD M/W/F
Vascular Surgery Consult Routine
Consulting Provider: Tony Portillo III
Was physician already notified: Yes
Reason for consult: Acute celiac artery occlusion
VTE Contraindication Routine
VTE Mechanical Device Contraindication: Medical Contraindication
Pharmocologic Contraindication: Medical Contraindication
Activity As Directed
Activity Level: With Assistance
Vital Signs As Directed
Frequency: Per unit guidelines
O2 Therapy [RESP] Routine
Nasal Cannula Liter Flow: 2 LPM
Titrate/Wean O2 to maintain O2 sat greater than (%): 92
12/14/23 Breakfast
NPO
Allow oral meds: Yes
Allow clear liquids: Sips of Clears
Complete Blood Count/With Diff IN AM
Lactic Acid IN AM
Lipase IN AM
Prothrombin Time IN AM
Levothyroxine [Synthroid] 100 mcg PO DAILY @ 0600
12/14/23 08:00
Aspirin Low Dose EC [Aspir Low (Enteric Coated)] 81 mg PO DAILY
Atorvastatin [Lipitor] 80 mg PO DAILY
Pantoprazole [Protonix IV] 40 mg IV DAILY
12/14/23 18:00
Metoprolol Xl [Toprol Xl] 12.5 mg PO QPM
12/14/23 22:00
Duloxetine Delayed Release [Cymbalta Delayed Release] 30 mg PO HS
Abnormal Lab Results
12/13/23 12/13/23 12/13/23
20:59 21:01 22:14
WBC 18.3 H 10^3/uL
(4.8-10.8)
RBC 4.10 L 10^6/uL
(4.20-5.40)
MCHC 31.4 L g/dL
(33.0-37.0)
RDW 19.0 H %
(11.5-14.5)
MPV 11.4 H fL
(7.4-10.4)
Abs Immat Gran (auto) 0.1 H 10^3/uL
(0-0.05)
Absolute Neuts (auto) 15.8 H 10^3/uL
(1.4-6.5)
Absolute Lymphs (auto) 1.1 L 10^3/uL
(1.2-3.4)
Absolute Monos (auto) 1.3 H 10^3/uL
(0.1-0.6)
Neutrophils % 86.4 H %
(42.2-75.2)
Lymphocytes % 5.8 L %
(20.5-51.1)
PT 39.9 H Sec
(11.4-14.6)
APTT 42.4 H Sec
(23.4-35.0)
Potassium 5.5 H mmol/L
(3.5-5.1)
Chloride 92 L mmol/L
(98-107)
Carbon Dioxide 19 L mmol/L
(22-30)
BUN 44 H mg/dl
(7-17)
Creatinine 4.6 H* mg/dL
(0.6-1.0)
Glucose 106 H mg/dl
(70-99)
Lactic Acid 9.2 H* mmol/L
(0.7-2.0)
Total Bilirubin 2.9 H mg/dl
(0.2-1.3)
AST 211 H U/L
(14-36)
ALT 110 H U/L
(0-35)
Alkaline Phosphatase 142 H U/L
(38-126)
Ammonia < 9 L umol/L
(9-30)
Antibody Screen Positive A
(Negative)
12/13/23 20:59
12/13/23 20:59
Vital Signs
Initial and Last Documented VS:
Initial Vital Signs
Temp Pulse Resp BP
99 F 88 20 135/82
12/13/23 20:42 12/13/23 20:42 12/13/23 20:42 12/13/23 20:42
Last Documented Vital Signs
Temp Pulse Resp BP Pulse Ox
99 F 96 25 137/77 82
12/13/23 20:42 12/14/23 00:07 12/14/23 00:07 12/14/23 00:09 12/14/23 00:00
<Josep Morales PA-C - Last Filed: 12/14/23 02:20>
MDM/Problems Addressed
MDM/Problems Addressed:
Initial evaluation highly concerning for acute aortic emergency, bedside fast ultrasound performed by myself showed no evidence of free fluid in the abdomen. The patient was sent urgently for CT angiogram of the chest abdomen pelvis which
unfortunately revealed high-grade stenosis of the celiac trunk. Clinically she is quite toxic and mottled appearing with signs of hypoperfusion. I had a discussion with vascular surgery, Dr. Portillo, to discuss the findings, initial recommendations
were for admission on heparin and close observation as there is no indication for operative intervention given her high INR at this time. After repeat discussion heparin was held and due to markedly elevated lactic acid discussion was held with the
family to make the patient comfortable and observe overnight for clinical improvement. Transaminitis and elevated INR likely indicative of acute hepatic failure. Ultimately this is a grave situation and the patient remains critical, will not
pursue any aggressive measures at this point and she will remain a DNR/DNI. Will be admitted to the hospitalist service for further comfort measures
<Josep Morales PA-C - Last Filed: 12/14/23 02:20>
*Critical Care Note
Total Time (30-74mins, 75-104mins- exclusive of procedures): 65 minutes
comment:
Critical care time: 65 minutes
Critical care time was exclusive of: Separately billable procedures, treating other patients, and teaching time
Critical care was necessary to treat or prevent imminent or life-threatening deterioration of the following conditions: Mesenteric ischemia
Critical care time spent personally by me on the following activities:
[x] Review of old charts
[x] Obtaining history from patient or surrogate
[x] Ordering and review of the laboratory studies
[x] Ordering and review of radiographic studies
[x] Ordering and performing treatments and interventions
[x] Patient patient's response to treatment
[x] Development of treatment plan with patient or surrogate
ED Attending Note
<Josep Morales PA-C - Last Filed: 12/14/23 02:20>
-
Portions of this chart may have been created with voice recognition software.� Occasional wrong word or��sound alike� substitutions may have occurred due to the inherent limitations of voice recognition software.
<Halley Portillo MD - Last Filed: 12/13/23 22:23>
ED Attending Note
Patient seen and examined by attending physician: Yes
I performed the substantive portion of visit, reviewed & personally made and approve the management plan that is documented in note by myself or TRACY.: Yes
ED Attending Note:
63-year-old female with a very complex prior medical history presents emergency department with severe abdominal pain that began earlier today described as severe cramping. Patient tried to use the restroom but was unable to have a bowel movement.
who provides most of the history states that she has been having intermittent mottling, cyanosis of her back buttocks and lower extremities for some time. Patient was noted to be too awake later today which prompted him to call 911. On
exam, patient is critically ill appearing, pale, with mottling of back and extremities. The left fifth digit is cyanotic, extremities cool, patient now much more comfortable status post meds. CTA consistent with celiac artery occlusion. Labs
concerning for impending developing liver failure particularly elevated INR. Luis discussed with vascular surgeon Bandar, plan is to hold on anticoagulation given elevation of INR and recent DOAC this morning. Pain management. Has been aware of how
critically ill patient is and likely terminal prognosis. Patient is not a candidate for surgery or other intervention at this time as per Dr. Portillo
Discharge Plan
Departure
Patient Disposition: Admit
Date of Disposition: 12/13/23
Time of Disposition: 22:14
Admit to: Med/Surg
Presentation/result/management discussed w/ accepting MD/DO: Hospitalist
Discharge Problem:
Occlusion of celiac artery
Interventions
Interventions:
*Risk Screen - Suicide Last Done: 12/13/23 21:40
*General Assessment Last Done: 12/13/23 21:40
*Neglect/Abuse Screening Last Done: 12/13/23 21:40
ED- Fall Risk Assessment Last Done: 12/13/23 21:37
*ED COVID-19 Vaccine History Last Done: 12/13/23 21:40
*Nursing Disposition Last Done: 12/13/23 23:50
ED- Cardiac Assessment Last Done: 12/13/23 21:37
ED- Neurological Assessment Last Done: 12/13/23 21:37
ED- Pulmonary Assessment Last Done: 12/13/23 21:37
Discharge Date and Time
Discharge Date/Time: 12/13/23 23:50
[2023-12-13 21:32] LABS: AST (SGOT) 211 U/L (14-36); Albumin 4.2 g/dl (3.5-5.0); Alkaline Phosphatase 142 U/L (38-126); Blood Urea Nitrogen 44 mg/dl (7-17); Calcium 9.8 mg/dl (8.4-10.2); Carbon Dioxide 19 mmol/L (22-30); Chloride 92 mmol/L (98-107); Glucose 106 mg/dl (70-99); Potassium 5.5 mmol/L (3.5-5.1); Sodium 138 mmol/L (135-145); Total Bilirubin 2.9 mg/dl (0.2-1.3); Total Protein 6.5 g/dl (6.3-8.2); eGFR 10.14
[2023-12-13 21:41] LABS: ALT (SGPT) 110 U/L (0-35)
[2023-12-13 22:00] VITALS: BP 132/75
[2023-12-13 22:34] LABS: Ammonia < 9 umol/L (9-30)
[2023-12-13 22:39] LABS: Lactic Acid 9.2 mmol/L (0.7-2.0)
[2023-12-13 23:00] VITALS: BP 130/86
--- NOTE | 2023-12-13 23:18 | HPS.HSE ---
Family Physician
-
Family Physician: Heri Huston
Chief Complaint
-
Abdominal pain
History of Present Illness
This is a 63-year-old female with extensive peripheral vascular disease history notable for multiple aortic stents, iliac stents, history of WA and ESRD now on HD Thursday, hypertension, hyperlipidemia presenting to attempt
independent approximately 2 to 3 days of abdominal pain without nausea or vomiting. Patient with extreme discomfort and unable to provide history. was at bedside provided most of the history stating that the patient has been complaining of
abdominal and back pain. She has not had nausea or vomiting and she has not had diarrhea. She has had weakness for a week and correspond reports that she has had cyanosis or for hands and feet as well as some of her back. Patient was difficult to
arouse this morning and EMS was called.
Patient at bedside was semi-coherent, writhing in in pain and calling for help. She is not in any position to answer questions unfortunately.
Her VS in ED was stable with BP of 135/852, p 80, T 99F. Poor plethysmograph. WBC 18.3, Hgb 12, plt 238. T bili 2.9. AST 211, ALT 110. K 5.5. BUN 44, Cr 4.6, Bicarb 19. Lactate 9.2. Ammonia is normal.
CT abdomen showing a new occlusion. There is a new short segment critical stenosis (9%) versus less likely occlusion with distal reconstitution of the proximal celiac trunk. There is new downstream severe stenosis of the splenic left gastric and
common hepatic arteries. Mesenteric ischemia is possible in this setting.
Case discussed with vascular surgery.
Medical History
Past Medical History
Past Medical History: Reports CAD, CHF, HTN, Hypercholesterolemia, Hypothyroidism, Renal Failure and Other (Peripheral vascular disease)
Past Surgical History: Reports Other (Vascular)
Additional Past Surgical History:
Aortic and Iliac revascularization
Social History
Tobacco: Former Smoker
Alcohol: None
Drug: None
Personal:
Living: With Family
Employment: Not Employed
Family History
Family History: Not pertinent
Allergies / Home Medications
Allergies reflects when Allergies were last updated in [employer].
Home Medications with original date entered in [employer]
Allergy/Medication List:
Allergies
Allergy/AdvReac Type Severity Reaction Status Date / Time
No Known Allergies Allergy Verified 11/15/23 08:14
Home Medications
alprazolam 0.25 mg tablet 0.25 mg PO BIDPRN PRN anxiety 04/03/23
aspirin 81 mg capsule 81 mg PO DAILY Blood Clot Prevention/Tx 04/03/23
atorvastatin 80 mg tablet 80 mg PO DAILY High Cholesterol 04/03/23
cholecalciferol (vitamin D3) 50 mcg (2,000 unit) tablet (Vitamin D3) 50 mcg PO DAILY Supplement 04/03/23
duloxetine 30 mg capsule,delayed release 30 mg PO HS Mental Health/Anxiety 04/03/23
levothyroxine 100 mcg tablet 100 mcg PO DAILY Thyroid 04/03/23
apixaban 5 mg tablet (Eliquis) 5 mg PO BID #180 tabs 09/04/23
albuterol sulfate 90 mcg/actuation aerosol inhaler (ProAir HFA) 2 puff inhalation R Q6HPRN PRN sob 09/08/23
gabapentin 300 mg capsule 300 mg PO MOWEFR PRN nerve pain #0 caps 10/14/23
metoprolol succinate 25 mg tablet,extended release 24 hr 12.5 mg (1/2 x 25 mg) PO QPM 30 days #15 tabs 10/14/23
nystatin 100,000 unit/mL oral suspension 5 ml PO QID 10 days #200 mL 10/14/23
pantoprazole 40 mg tablet,delayed release 40 mg PO DAILY 30 days #30 tabs 10/14/23
torsemide 20 mg tablet 40 mg (2 x 20 mg) PO DAILY 30 days #60 tabs 10/14/23
ondansetron 4 mg disintegrating tablet 4 mg PO TIDPRN PRN nausea/vomiting #12 tabs 11/09/23
Review of Systems
-
History Source: Family
Constitutional: Reports No Symptoms
EENT: Reports No Symptoms
Respiratory: Reports No Symptoms
Cardiac: Reports No Symptoms
Abdomen/GI: Reports Abdominal Pain
: Reports No Symptoms
Skin: Reports No Symptoms
Neurological: Reports No Symptoms
Endocrine: Reports No Symptoms
Hematologic/Lymphatic: Reports No Symptoms
Psych: Reports No Symptoms
Physical Exam
Vital Signs
Vital Signs
Temp Pulse Resp BP Pulse Ox
99 F 84 16 132/75 91
12/13/23 20:42 12/13/23 22:00 12/13/23 22:00 12/13/23 22:00 12/13/23 22:00
Physical Exam
General: Appears in Distress
HEENT: NormoCephalic, Anicteric, Moist mucous membranes, Atraumatic and PERRLA
Respiratory: Clear
Cardiac: S1/S2 and Regular Rhythm
GI: Soft and Non Distended
Rectal: Deferred by Provider
Genito-urinary: Deferred by me
Musculoskeletal: No Clubbing, Cyanosis and No Edema
Skin: Other (cold distal extremities)
Neuro: Awake and Nonfocal/grossly intact
Hematologic/Lymphatic: No Lymphadenopathy
Psych: Agitated
Laboratory Results
-
12/13/23 20:59
12/13/23 20:59
Laboratory Results
PT 39.9 Sec (11.4-14.6) H 12/13/23 21:01
INR 4.11 12/13/23 21:01
APTT 42.4 Sec (23.4-35.0) H 12/13/23 21:01
Lactic Acid 9.2 mmol/L (0.7-2.0) H* 12/13/23 22:14
Total Bilirubin 2.9 mg/dl (0.2-1.3) H 12/13/23 20:59
AST 211 U/L (14-36) H 12/13/23 20:59
ALT 110 U/L (0-35) H 12/13/23 20:59
Alkaline Phosphatase 142 U/L (38-126) H 12/13/23 20:59
Data Reviewed
-
CT Scan: Report Reviewed by me
Lab Data: Labs Reviewed by me
Old Records: Reviewed
Impression/Plan
-
IMPRESSION:
Patient with a acute occlusion of mesenteric artery, specifically a new short segment critical stenosis versus likely occlusion with distal reconstitution of the proximal celiac trunk. There is a new downstream severe stenosis of the splenic left
gastric and common hepatic arteries. Patient's lactic acid is 9. She also has elevated LFTs. Overall picture is concerning for mesenteric ischemia with very poor prognosis. She has elevated INR (on Eliquis for history of prior vascular stents)
of 4. Postoperative changes status post aorto by iliac stent graft placement noted. He has been complaining of abdominal pain for 2 days. She does have distal mottling of the skin. She remains hemodynamically stable at this time but lethargic
and confused.
PLAN:
Mesenteric Occlusion -
discussed with Dr. Portillo. Bandar recommended ICU placement. He discussed that there is no option for revascularization at this time. Likely thrombosed despite anticoagulation. There could be an attempt to stent her celiac but in the setting of
INR of 4 and acute liver failure this will be extremely high risk. He feels that there is a new I agree stenosis of her celiac but has fluid in her distal hepatic branches. The SMA is widely patent. CT scan does not show obvious tissue necrosis.
Without options for revascularization in the region with active bleeding methods at the time. Patient is not anticoagulated due to elevated INR. I discussed the situation with the spouse understood. My recommendation time was to move patient to
comfort measures if she shows any signs of deterioration she will not be a candidate for any surgical intervention such as exploratory laparotomy and antibiotics and pressors will be ineffective in the setting of continued bowel ischemia. At this
time we have watchful waiting with serial LFTs and lactic acid measurements and examinations. Per discussion with Dr. Portillo I have agreed to place patient in ICU for now for the serial monitoring with low threshold to transition the patient to
comfort measures if he is showing signs of deterioration. She is DNR. NPO for now. D5 1/2 NS at 40. Pain control, antiemetics and anxiolytics. Start heparin when INR < 2. Platelet WNL so no DIC. Consider palliative care consult.
ESRD - HD M/W/F via left PermCath. K 5.5 Elevated lactic acid, bicarb ok.
- nephrology consult
- NPO as above
- holding diuretics
CAD
- on eliquis InR 4.1
- continue aspirin as tolerated
Code Status - DNR
[2023-12-13] MEDS: DILAUDID 0.5 MG IV (23:39)
[2023-12-13] MEDS: ZOFRAN 4 MG IV (23:39)
[2023-12-14] VITALS (22 sets, daily range): BP systolic 66–143; BP diastolic 37–77; BMI 20.3
[2023-12-14] MEDS: D5/0.45%NACL 1000 IV (01:19)
--- NOTE | 2023-12-14 01:39 | PTCARENOTE ---
received pat. from ED.
Acute celiac artery, mesenteric ischemia, previous illiac stents in past.
Despite anticoagulation regiment from previous stent, pt has developed arterial occlusions, stenosis resulting in ischemic bowel, acute liver failure.
Vascular surgery consulted, case reviewed, revascularization is not an option, INR elevated at 4, unable to perform ex Lap.
Awaiting follow ups with vascular surg, admitted icu for monitoring, hospitalist recommending comfort measures.
Lethargic, pupils =/r 3mm, normocephalic, decreased sensation in lower extrem.
NSR w/o ectopy, Normothermic, Normotensive, pedal pulses not palpable upon doppler, mottled throughout lower extrem.
Unable to obtain pleth, ICU TRACY aware. Lungs cta, rr 20-30.
ESRD m/w/f, Anuric.
Cont. to monitor pain, trending LFT, Lactic, ammonia.
Spouse bedside, updated on plan of care at length.
--- NOTE | 2023-12-14 03:52 | PTCARENOTE ---
Notified by blood bank that due to high levels of antibodies in patient type and screen, will need to draw specialty tubes and have them sent to [facility] to screen.
Tubes collected and sent back to lab per blood bank specifications.
Pt. assessment unchanged,
Extrem still mottled, still unable to obtain pleth, hemodynamically stable.
Pt. offers no complaints of pain, still lethargic.
[2023-12-14 04:37] LABS: PT 73.4 Sec (11.4-14.6)
[2023-12-14 04:51] LABS: Hemoglobin 11.6 g/dL (12.0-16.0); Mean Corp Hgb Conc. 30.5 g/dL (33.0-37.0); Mean Corpuscular Hgb 29.4 pg (27.0-31.0); Mean Corpuscular Volume 96.4 fL (81.0-99.0); Mean Platelet Volume 12.1 fL (7.4-10.4); Platelet Count 240 10^3/uL (130-400); Red Blood Cell Count 3.94 10^6/uL (4.20-5.40); Red Cell Dist. Width 19.4 % (11.5-14.5); White Blood Cell Count 21.8 10^3/uL (4.8-10.8)
[2023-12-14 05:21] LABS: INR > 8.0
[2023-12-14 05:22] LABS: Lactic Acid 13.4 mmol/L (0.7-2.0)
[2023-12-14 05:23] LABS: ALT (SGPT) 318 U/L (0-35); AST (SGOT) 1053 U/L (14-36); Albumin 3.7 g/dl (3.5-5.0); Alkaline Phosphatase 150 U/L (38-126); Blood Urea Nitrogen 48 mg/dl (7-17); Calcium 8.5 mg/dl (8.4-10.2); Carbon Dioxide 10 mmol/L (22-30); Chloride 92 mmol/L (98-107); Direct Bilirubin 2.7 mg/dl (0.0-0.4); Estimated Creatinine Clearance 10 ml/min; Glucose < 30 mg/dl (70-99); Lipase 175 U/L (23-300); Magnesium 2.5 mg/dl (1.6-2.3); Phosphorus 11.6 mg/dl (2.5-4.5); Potassium 6.5 mmol/L (3.5-5.1); Sodium 136 mmol/L (135-145); Total Bilirubin 3.3 mg/dl (0.2-1.3); Total Protein 6.1 g/dl (6.3-8.2); eGFR 8.96
--- NOTE | 2023-12-14 05:48 | W.PN.UPDATE ---
Update Note
Progress Note Update
2583- Reviewed patients labs: metabolic acidosis worsening bicarb 10, lactic acidosis worsening, INR >8, increased liver failure, and multiorgan failure. Discussed at bedside with patient's Lambert Harris current lab results and overall
worsening/poor prognosis. Answered all questions and reviewed treatment choices, at this time his decision is to make patient comfort measures, we will not treat or correct the current lab values. Patient's wishes to speak to the daytime
physicians, his family, and to consult hospice.
[2023-12-14] MEDS: DEXTROSE 50% SYRINGE 25 GRAMS IV (05:51)
--- NOTE | 2023-12-14 06:05 | PTCARENOTE ---
AM labs revealed worsening clinical condition. Decision made to transition to comfort/hospice.
Consult for hospice placed, bilingual call center representative Vesta notified and will be in within the half hour to see family.
See provider report for further details.
[2023-12-14 06:15] LABS: Glucose - Point of Care 126 mg/dl (70-99)
[2023-12-14 06:24] LABS: Absolute Neutrophils -Man Diff 19.8 10^3/uL (1.4-6.5); Band Neutrophils 7 % (0-3); Lymphocytes 4 % (20-51); Segmented Neutrophils 84 % (42-75)
[2023-12-14 06:25] LABS: Burr Cells 1+; Monocytes 5 % (2-9); Normal RBC Morphology No; Platelets Checked Yes; Polychromasia Slight; Total Cells Counted 100
--- NOTE | 2023-12-14 07:55 | W.PN.UPDATE ---
Update Note
Progress Note Update
Patient is well known to me
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
Difficult course over the past several months
CHF/renal failure/HD
Reduced QOL
Contacted office with complaints and was instructed to go to ED for evaluation
Presented last night with abdominal cramping
Elevated INR and metabolic acidosis
.
CTA performed and demonstrated occlusion/high grade stenosis of the celiac. Hepatic branches distally do fill with contrast but are difficult to see distally
SMA widely patent proximally. Distal branches more difficult to see as well
I had an extensive discussion with her at bedside. I explained the severity of the current situation. One option would include endovascular intervention on the celiac however given her current condition this would be a high risk procedure
and may not result in a meaningful outcome. In addition, given her rapid quality of life deterioration over the last several months I also explained that this intervention is not likely to improve any of that.
He and his family have decided not to pursue any additional surgical intervention. Focus now is comfort care. Hospice is involved.
Tony Portillo III, MD
[facility] Vascular Surgery
[phone] (titj)
--- NOTE | 2023-12-14 08:41 | W.CON.NEPH ---
Consultation
-
Date/Time Consultation Requested: 12/14/2023 7:00 AM
Date/Time Consultation Performed: 12/14/2023 8:40 AM
Requesting Provider: Dr. Gay
Performing Provider: Dr. Angeles
Reason for Consultation: End-stage renal disease
Medical History
-
Chief Complaint: End-stage renal disease
History of Present Illness:
The patient is a 63YOF with PMH of TIA, ovarian cancer, HTN, CAD, HFpEF, ESRD with recent AFX stent graft placement, balloon angioplasty. She is chronically maintained on Eliquis in the setting of her peripheral vascular disease.
She is maintained on dialysis at for sending us warrantee every Thursday and Thursday for her ESRD. She has a known history of totally occluded RCA and complex peripheral arterial disease with recent aortoiliac stenting in August 2023. She has a
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 She presented to the hospital last evening with 2 to 3 days of back and abdominal pain without nausea or vomiting. The patient was with extreme discomfort and unable to
provide history. She has not had nausea or vomiting and she has not had diarrhea. She has had weakness for a week and correspond reports that she has had cyanosis or for hands and feet as well as some of her back.
CT abdomen was performed and noted a new short segment critical stenosis (9%) versus less likely occlusion with distal reconstitution of the proximal celiac trunk. There is new downstream severe stenosis of the splenic left gastric and common
hepatic arteries. Vascular surgery was consulted and given the extensive vascular disease burden and poor comorbidities, surgical intervention is not to be pursued.
Past Medical History
TIA
ovarian cancer
HTN
CAD
HFpEF
CKD 3B
current smoker
COPD
Vulvar cancer
PAD
DLD
Moyamoya syndrome
Chronically occluded RCA
Complex PAD
Aortoiliac stent graft August 2023
Past Surgical History: Other (Appendectomy 02/1992 Hysterectomy, BSO, omentectomy 02/1992 Partial vulvectomy 2010 Brain bypass x3 Appendectomy)
Social History
Tobacco: Smoker
Alcohol: None
Drug: None
Personal:
Living: With Family
Family History
Family History: Not Pertinent
Allergies / Home Medications
Allergy/AdvReac Type Severity Reaction Status Date / Time
No Known Allergies Allergy Verified 11/15/23 08:14
�Medication �Instructions �Recorded �Confirmed �Type
alprazolam 0.25 mg tablet 0.25 mg PO BIDPRN PRN anxiety 04/03/23 09/21/23 History
aspirin 81 mg capsule 81 mg PO DAILY Blood Clot 04/03/23 09/21/23 History
Prevention/Tx
atorvastatin 80 mg tablet 80 mg PO DAILY High Cholesterol 04/03/23 09/21/23 History
cholecalciferol (vitamin D3) 50 50 mcg PO DAILY Supplement 04/03/23 09/21/23 History
mcg (2,000 unit) tablet (Vitamin
D3)
duloxetine 30 mg capsule,delayed 30 mg PO HS Mental Health/Anxiety 04/03/23 09/21/23 History
release
levothyroxine 100 mcg tablet 100 mcg PO DAILY Thyroid 04/03/23 09/21/23 History
apixaban 5 mg tablet (Eliquis) 5 mg PO BID #180 tabs 09/04/23 09/21/23 Rx
albuterol sulfate 90 mcg/actuation 2 puff inhalation R Q6HPRN PRN sob 09/08/23 09/21/23 History
aerosol inhaler (ProAir HFA)
gabapentin 300 mg capsule 300 mg PO MOWEFR PRN nerve pain #0 10/14/23 09/21/23 Rx
caps
metoprolol succinate 25 mg 12.5 mg (1/2 x 25 mg) PO QPM 30 10/14/23 Rx
tablet,extended release 24 hr days #15 tabs
nystatin 100,000 unit/mL oral 5 ml PO QID 10 days #200 mL 10/14/23 Rx
suspension
pantoprazole 40 mg tablet,delayed 40 mg PO DAILY 30 days #30 tabs 10/14/23 Rx
release
torsemide 20 mg tablet 40 mg (2 x 20 mg) PO DAILY 30 days 10/14/23 Rx
#60 tabs
ondansetron 4 mg disintegrating 4 mg PO TIDPRN PRN nausea/vomiting 11/09/23 Rx
tablet #12 tabs
Review of Systems
-
Unable to obtain full review of systems at this time due to: Acuity
History Source: Family
All other systems: Negative unless noted
Constitutional: Fatigue
Abdomen/GI: Abdominal Pain
Musculoskeletal: Other (back pain)
Physical Exam
Vital Signs
Vital Signs
Temp Pulse Resp BP Pulse Ox
97.9 F 79 20 106/50 100
12/14/23 06:00 12/14/23 06:00 12/14/23 06:00 12/14/23 06:00 12/14/23 04:08
Lab Results
WBC 21.8 10^3/uL (4.8-10.8) H 12/14/23 04:15
RBC 3.94 10^6/uL (4.20-5.40) L 12/14/23 04:15
Hgb 11.6 g/dL (12.0-16.0) L 12/14/23 04:15
Hct 38.0 % (37.0-47.0) 12/14/23 04:15
Plt Count 240 10^3/uL (130-400) 12/14/23 04:15
Sodium 136 mmol/L (135-145) 12/14/23 04:15
Potassium 6.5 mmol/L (3.5-5.1) H* 12/14/23 04:15
Chloride 92 mmol/L (98-107) L 12/14/23 04:15
Carbon Dioxide 10 mmol/L (22-30) L* 12/14/23 04:15
BUN 48 mg/dl (7-17) H 12/14/23 04:15
Creatinine 5.1 mg/dL (0.6-1.0) H* 12/14/23 04:15
eGFR 8.96 12/14/23 04:15
Glucose < 30 mg/dl (70-99) L* 12/14/23 04:15
Calcium 8.5 mg/dl (8.4-10.2) 12/14/23 04:15
Phosphorus 11.6 mg/dl (2.5-4.5) H 12/14/23 04:15
Albumin 3.7 g/dl (3.5-5.0) 12/14/23 04:15
Physical Exam
12/14/23 04:15
12/14/23 04:15
General:sedated and weakly responsive
HEENT: PERRL, EOMI, Anicteric, Conjunctivae Clear, Ear/Nose Intact, Hearing Normal, Oropharynx Clear/Moist, Dentition Intact, Facial Symmetry, Neck Supple, Neck: Trachea Midline, No JVD and No Thyromegaly, no Bruits
Respiratory: Clear to auscultation bilaterally with normal lung exersion
Cardiac: S1/S2 and Regular Rate/Rhythm
Breast: Deferred by me
Abdomen: Soft, Nontender, Nondistended, decreased and No Hepatosplenomegaly
Rectal: Deferred by Provider
Genito-urinary: No Costovertebral Tenderness
Extremities: cyanotic lower extremities and No Edema
Skin: No Rash or open lesions
Neuro: heavily sedated
Hematologic/Lymphatic: No Cervical Lymphadenopathy, No Submandibular Lymphadenopathy and No Supraclavicular Lymphadenopathy
Psych: sedated from pain
Vascular: poorly palpable pedal and radial pulses
Vascular Access: CVC (right IJ)
Data Reviewed
-
CT Scan: Report Reviewed by me (Reviewed CT scan of abdomen about)
Labs: Labs Reviewed by me (BMP CBC)
Old Records: Reviewed (Reviewed nephrology consultation from September 22, 2023 for acute on chronic kidney disease stage)
Assessment/Plan
-
Impression:
ESRD Thursday
Hyperkalemia
Metabolic acidosis (Lactate 13.4)
Hypertension
Aorta iliac revascularization following potential atheroembolism August 2023
COPD
Moyamoya disease/complex peripheral arterial disease
Inoperable CAD
Plan:
Patient remains critically ill with hypotension profound lactic acidosis and hyperkalemia
I discussed with the who agrees for palliative care and dialysis will not be pursued
--- NOTE | 2023-12-14 08:45 | PTCARENOTE ---
Rec'd pt at 0800 resting in bed. at the bedside. Rec'd in report that the plan was for Hospice. Rec'd overall unresponsive. Slightly moved her L arm when turned and gave a minimal moan but then nothing. Pupils are sluggish at 2mm. When doing
oral care pt did move her lips around the mouth care wand but has followed no commands. Handgrasps are absent. Did not move legs. Weak gag. Skin is sallow in general and legs bilaterally are cold and mottled from the feet to the mid thigh. Nailbeds
are dusky with refill > 2 seconds on the feet and pale with refill > 2 seconds on the hands. Temp 99.3 axillary. Respirs are shallow but non-labored on RA. Unable to obtain sats on her. BS are sl decreased but clear. Monitor SR with 1st'avb. Weak
radial pulses. Only able to get a R PT pulse with the doppler. Unable to get bilateral DP's or L PT with the doppler. Legs are cold. VS as documented. BP has decreased since changed of shift. Currently 78/46. Abd is round and firm with + hypoactive
BS. No stool. Pt is anuric. IV fluids D5 1/2 NS infusing via RAC IV site. Site wnl. R chest tunneled HD cath site wnl. Pt turned and repostioned. Skin and mouth care given. Support given to family. Clinical Documentation Consultant in to see pt. Hospice consulted
[2023-12-14 08:48] LABS: Glucose - Point of Care 115 mg/dl (70-99)
--- NOTE | 2023-12-14 08:53 | CM ---
CM consult for hospice received. Referral sent to Hospice via [facility].
--- NOTE | 2023-12-14 09:15 | PTCARENOTE ---
Pts and son at the bedside. Support given. Paleology Teacher in to see pt
--- NOTE | 2023-12-14 09:46 | CM ---
Reviewed the chart notes. Patient resides with spouse in a two story home with two steps to enter. Patient has had VN in the past. CM continues to be available to patient/family and is monitoring medical plan for needs at discharge.
Plan: Comfort Care/Hospice. Hospice referral sent.
--- NOTE | 2023-12-14 10:59 | HOSPNOTE ---
Addendum entered by Chloe Guerrero RN 12/14/23 12:38:
Update from Janna RN- she went to evaluate patient and spoke to patients spouse. All are in agreement that patient appears comfortable at this time. There are no unmanaged symptoms at this time that would warrant inpatient hospice. Patient also is
actively dying and appears to be imminent, within hours. All are in agreement that patient should remain comfort level of care at this time. Primary RN, CM, and Attending updated.
Original Note:
Referral received. Hospice nurse Janna will come bedside to evaluate patient and speak to . If all in agreement, patient will be admitted inpatient hospice. more information to follow.
--- NOTE | 2023-12-14 11:12 | W.PN.HOSP.TC ---
Today's Communication/Plan
-
COmfort care pending inpatient hospice
Assessment / Plan
Assessment / Plan
63yo F with PMHx of PVD with aortic stents, emphysema, iliac stents, CAD s/p IN, ESRD on HD, HTN, HLD brought to the hospital with 3 days of abdominal pain, CT sshowed extensive high grade stenosis with possible occlusion of the celiac. Due to high
risk of endovascular intervention and extensive disease and after conversation with vascSx - family made decision for comfort care and hospice approach. Also confirmed stopping HD as per conversation with nephro. Family aware that it will mean to
stop all active medical treatment and avoid additional diagnostics such as but not limited to: home meds, blood test, invasive procedures. Inpatiwent hospice involved.
A/P:
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
#ESRD
#CAD
#GERD
#Emphysema
#Anxiety
#Hypothyroidism
#GERD
#Moyamoya syndrome
#Hx of ovarian CA
COmfort care
Hospice consult
Lorazepam for anxiety, Morphine for pain and dyspnea
DVT ppx not indicated
Anticipated Discharge: 24 - 48 hours
Subjective/Interval History
-
Date of Service: December 14, 2023
Objective Data
-
Labs:
Laboratory Results
12/14/23
04:15
WBC 21.8 H
Hgb 11.6 L
Hct 38.0
Plt Count 240
PT 73.4 H
INR > 8.0 H* D
Sodium 136
Potassium 6.5 H*
Chloride 92 L
Carbon Dioxide 10 L*
BUN 48 H
Creatinine 5.1 H*
Glucose < 30 L*
Calcium 8.5
Total Bilirubin 3.3 H
AST 1053 H*
ALT 318 H
Alkaline Phosphatase 150 H
Vital Signs:
Vital Signs
Temp Pulse Resp BP Pulse Ox
99.3 F 78 18 78/46 100
12/14/23 08:00 12/14/23 08:00 12/14/23 08:00 12/14/23 08:00 12/14/23 04:08
I&O
12/13/23 12/14/23 12/15/23
06:59 06:59 06:59
Intake Total 80 / 80
Balance 80 / 80
Review of Systems
-
Unable to obtain full review of systems at this time due to: Acuity
History Source: Patient
Physical Exam
-
General: No Apparent Distress and Comfortable
Musculoskeletal: Other (mottled skin on b/l LE)
Psych: Calm
--- NOTE | 2023-12-14 12:00 | PTCARENOTE ---
No changes in assessment. Family at the bedside. VS as documented.
--- NOTE | 2023-12-14 12:35 | HOSPNOTE ---
Met with spouse and son for hospice introduction and to assess pt appropriateness for hospice GIP. Pt currently on comfort measures. Pt unresponsive, FLACC 0, IVF running BP 81/43, mottling, pooling in BLE, BUE. Last dose of dilaudid admin last
night approx 2300-Pt appears comfortable, pt imminently dying, no unmanaged symptoms that would warrant hospice GIP admission at this time. Support offered to family and nursing.
--- NOTE | 2023-12-14 12:45 | PTCARENOTE ---
Hospice in to see pt. No changes. Pt appears comfortable- no movement with turning and no movement with mouth care. VS as documented. Legs remain mottled and cold. Unable to get pulse ox on pt all day.
[2023-12-14] MEDS: FLUSH (NSS) 1 FLUSH IV (14:20)
--- NOTE | 2023-12-14 14:48 | PTCARENOTE ---
Family remains at the bedside. Both sons in to see pt. IV fluids capped at 1400. Report called currently to 2 [facility] transfer pt shortly
[2023-12-14] MEDS: DILAUDID 0.25 MG IV (15:40)
--- NOTE | 2023-12-14 16:00 | PTCARENOTE ---
1530 Getting ready to transfer pt to [facility] and pt noted to have more agonal breathing and looked uncomfortable. Medicated at 1540 with Dilaudid 0.25 mg IV. BP as noted in the 60's syst. Post Dilaudid breathing more relaxed but agonal. Pt also
stated with liquid reddish/brown stool. Cristina care given. Waiting to see what her breathing and BP does to transfer her. Dr. Calzada updated. at the bedside
--- NOTE | 2023-12-14 16:20 | PTCARENOTE ---
Pt noted to have no respirs and no pulse. Unable to get BP. Will update Dr. Calzada
--- NOTE | 2023-12-14 16:35 | PTCARENOTE ---
Pt placed on monitor at 1623 and is asystolic. Currently Dr. Calzada at the bedside to pronounce pt. Pts at the bedside. Support given
--- NOTE | 2023-12-14 16:37 | W.PN.DEATH ---
Pronouncement of
-
Called to see patient to pronounce.
No spontaneous heart tones or respirations noted.
Patient not responsive to verbal stimuli.
Patient is pronounced .
Time of : 16:20
Date of : 12/14/23
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
Family Notified: Yes
--- NOTE | 2023-12-14 16:40 | W.DCSUMMARY ---
Discharge Summary
Discharge Data
Date of Admission: 12/13/23
Date of Discharge: 12/14/23
-
Pending Results: No
Hospital Course
63yo F with PMHx of PVD with aortic stents, emphysema, iliac stents, CAD s/p PA, ESRD on HD, HTN, HLD brought to the hospital with 3 days of abdominal pain, CT sshowed extensive high grade stenosis with possible occlusion of the celiac. Due to high
risk of endovascular intervention and extensive disease and after conversation with vascSx - family made decision for comfort care and hospice approach. Also confirmed stopping HD as per conversation with nephro. Family aware that it will mean to
stop all active medical treatment and avoid additional diagnostics such as but not limited to: home meds, blood test, invasive procedures. Inpatient comfort care initiated. Patient peacefully at 4:20pm on 12/14/23 with family bedside.
cycle analyst was informed
I have spent at least 39min discharging the patient
Patient was managed for:
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
#ESRD
#CAD
#GERD
#Emphysema
#Anxiety
#Hypothyroidism
#GERD
#Moyamoya syndrome
#Hx of ovarian CA
Discharge Plan
-
Patient Disposition:
Referrals:
Heri Huston MD [Family Provider] -
Prescriptions:
No Action
atorvastatin 80 mg Tablet
80 mg PO DAILY
levothyroxine 100 mcg Tablet
100 mcg PO DAILY
alprazolam 0.25 mg Tablet
0.25 mg PO BIDPRN PRN (Reason: anxiety)
duloxetine 30 mg Capsule,Delayed Release(Dr/Ec)
30 mg PO HS
cholecalciferol (vitamin D3) [Vitamin D3] 50 mcg (2,000 unit) Tablet
50 mcg PO DAILY
aspirin 81 mg Capsule
81 mg PO DAILY
Eliquis 5 mg Tablet
5 mg PO BID Qty: 180 0RF
albuterol sulfate [ProAir HFA] 90 mcg/actuation Hfa Aerosol Inhaler
2 puff INHALATION R Q6HPRN PRN (Reason: sob)
nystatin 100,000 unit/mL Suspension
5 ml PO QID 10 Days Qty: 200 0RF
torsemide 20 mg Tablet
40 mg PO DAILY 30 Days Qty: 60 0RF
pantoprazole 40 mg Tablet,Delayed Release (Dr/Ec)
40 mg PO DAILY 30 Days Qty: 30 0RF
metoprolol succinate 25 mg Tablet Extended Release 24 Hr
12.5 mg PO QPM 30 Days Qty: 15 0RF
gabapentin 300 mg capsule
300 mg PO MOWEFR PRN (Reason: nerve pain) Qty: 0 0RF
ondansetron 4 mg Tablet,Disintegrating
4 mg PO TIDPRN PRN (Reason: nausea/vomiting) Qty: 12 0RF
Discharge Date and Time
Print Language: CHINESE
--- NOTE | 2023-12-14 17:10 | PTCARENOTE ---
[facility] notified
--- NOTE | 2023-12-14 18:14 | PTCARENOTE ---
Post mortem care completed. Left R tunneled HD cath in place as unable to remove even when sutures taken out. Will transport pt to [facility] [place]. Pts belongings given to family.
--- NOTE | 2023-12-14 18:32 | PTCARENOTE ---
Spoke with [facility] home out [facility] [phone]- Informed them that the patient is a potential cornea donor -awaiting family consent. They relayed the message they will wait until hearing from [facility]IE. I spoke with CASIE and gave the
home # to them and they relayed that they will contact the home once the body is released from them
== END 2023-12-14 16:20 | disposition expired | DRG 299 ==
LOC: ICU 23:21
PROVIDERS: Physician Assistant; ADMITTING PHYSICIAN Internal Medicine; ATTENDING PHYSICIAN Internal Medicine; CONSULT PHYSICIAN Specialist; EMERGENCY PHYSICIAN Emergency Medicine; FAMILY PHYSICIAN Internal Medicine
DX: I70.8 Atherosclerosis of other arteries (principal); K55.051 Focal (segmental) acute (reversible) ischemia of intestine, part unspecified; K72.00 Acute and subacute hepatic failure without coma; N18.6 End stage renal disease; K55.061 Focal (segmental) acute infarction of intestine, part unspecified; I13.2 Hypertensive heart and chronic kidney disease with heart failure and with stage 5 chronic kidney disease, or end stage renal disease; E87.20 Acidosis, unspecified; I50.32 Chronic diastolic (congestive) heart failure; I67.5 Moyamoya disease; Z66 Do not resuscitate; Z51.5 Encounter for palliative care; I25.10 Atherosclerotic heart disease of native coronary artery without angina pectoris; E03.9 Hypothyroidism, unspecified; R79.1 Abnormal coagulation profile; I25.82 Chronic total occlusion of coronary artery; E87.5 Hyperkalemia; J44.9 Chronic obstructive pulmonary disease, unspecified; E78.00 Pure hypercholesterolemia, unspecified; F17.200 Nicotine dependence, unspecified, uncomplicated; F41.9 Anxiety disorder, unspecified; I73.9 Peripheral vascular disease, unspecified; J43.9 Emphysema, unspecified; K21.9 Gastro-esophageal reflux disease without esophagitis; I25.2 Old myocardial infarction; Z95.828 Presence of other vascular implants and grafts; Z99.2 Dependence on renal dialysis; Z86.73 Personal history of transient ischemic attack (TIA), and cerebral infarction without residual deficits; Z85.43 Personal history of malignant neoplasm of ovary; Z79.899 Other long term (current) drug therapy; Z79.890 Hormone replacement therapy; Z79.82 Long term (current) use of aspirin; Z79.01 Long term (current) use of anticoagulants
CPT/HCPCS: 71275; 74174; 80053; 82140; 82248; 82962; 83605; 83690; 83735; 84100; 85025; 85610; 85730; 86850; 86870; 86900; 86901; 96374; 96375; 99291; Q9967